=== PATIENT | male | born 1965 | race Caucasian/White ===

== ENCOUNTER → 2017-02-02 | Outpatient (CLI) | payer BC ==
[2017-02-02 09:55] LABS: ALT 69 U/L (21-72); AST 43 U/L (17-59); Alkaline Phosphatase 142 U/L (38-126); Anion Gap 10 mmol/L; Blood Urea Nitrogen 22 mg/dL (9-20); Calcium 9.3 mg/dL (8.4-10.2); Carbon Dioxide 26 mmol/L (22-30); Chloride 106 mmol/L (98-107); Cholesterol 184 mg/dL (<200); Glucose 81 mg/dL (74-99); HDL Cholesterol 36 mg/dL (40-60); Non-African American GFR(MDRD) >60 (>60 ml/min/1.73 sqM); Potassium 4.2 mmol/L (3.5-5.1); Sodium 142 mmol/L (137-145); Total Bilirubin 0.5 mg/dL (0.2-1.3); Total Protein 7.2 g/dL (6.3-8.2)
== END | disposition home or self-care (01) ==
LOC: LABWHC1 09:21
PROVIDERS: ATTEND Internal Medicine Endocrinology, Diabetes & Metabolism
DX: E11.65 Type 2 diabetes mellitus with hyperglycemia (principal)
CPT/HCPCS: 36415; 80053; 80061; 82043; 82570

== ENCOUNTER 2017-02-23 21:51 | Emergency (ER) | payer BC ==
[2017-02-23 22:04] VITALS: RESP 18
[2017-02-23] MEDS ORDERED: ALBUTEROL NEBULIZED 2.5 MG/3 ML INHALATION STA (22:22)
[2017-02-23] MEDS ORDERED: DEXAMETHASONE SOD PHOSPHATE 10 MG/ML 1 ML VIAL IM STA (22:22)
[2017-02-23] MEDS ORDERED: IPRATROPIUM 0.5 MG/2.5 ML NEBU INHALATION STA (22:22)
--- NOTE | 2017-02-23 22:25 | ED ---
General Adult HPI - General Chief complaint: Upper Respiratory Infection Stated complaint: SOB Time Seen by Provider: 02/23/17 22:10 Source: patient, family, RN notes reviewed Mode of arrival: ambulatory Limitations: no limitations - History of Present Illness Initial comments: 51-year-old male with past medical history of hypertension, diabetes, hypercholesterolemia presents with a two-week history of cough. Cough is productive, primarily white phlegm. Patient was seen at an urgent care approximately 2 weeks ago, given a prescription for antibiotics and albuterol inhaler. He does not have a history of asthma or COPD, he was exposed to secondhand smoke and had a brief period of smoking as a young man. Patient denies fever but states he's had chills and night sweats over the past week. He did complete his antibiotic course proximally one week ago. He has had persistent cough and shortness of breath. Also reports some posttussive emesis. Patient also reports runny nose, and laryngitis. Denies any chest pain. Denies abdominal pain. - Related Data Home Medications Medication Instructions Recorded Confirmed Empagliflozin [Jardiance] 25 mg PO DAILY 08/10/14 02/23/17 Hydrocodone/Acetaminophen 7.5 mg PO TID 08/10/14 02/23/17 [Hydrocodon-Acetaminoph 7.5-325] Ibuprofen [Motrin] 800 mg PO Q6HR PRN 08/10/14 02/23/17 Insulin Glargine [Lantus] 80 unit SQ BID 08/10/14 02/23/17 Levothyroxine Sodium [Synthroid] 137 mcg PO DAILY 08/10/14 02/23/17 Lovastatin 40 mg PO HS 08/10/14 02/23/17 metFORMIN HCL 1,000 mg PO DAILY 08/10/14 02/23/17 Metoprolol Tartrate 25 mg PO BID 08/13/14 02/23/17 Pregabalin [Lyrica] 100 mg PO TID 08/13/14 02/23/17 Insulin Lispro [humaLOG] 40 units SQ BID 03/28/15 02/23/17 Levofloxacin [Levaquin] 1 tab PO DAILY 04/11/15 02/23/17 hydrALAZINE HCL [Apresoline] 100 mg PO BID 05/26/15 02/23/17 Previous Rx's Medication Instructions Recorded B Complex-Vit C-Vit E-Zinc [Z-Bec] 1 each PO DAILY@1200 #30 tablet 08/23/14 Azithromycin 500 mg PO DAILY #10 tab 02/23/17 predniSONE 50 mg PO DAILY #5 tab 02/23/17 Allergies Allergy/AdvReac Type Severity Reaction Status Date / Time sulfamethoxazole AdvReac Severe Nausea, Verified 02/23/17 22:04 [From Bactrim] Dizziness, Headaches trimethoprim [From Bactrim] AdvReac Severe Nausea, Verified 02/23/17 22:04 Dizziness, Headaches Review of Systems ROS Statement: Those systems with pertinent positive or pertinent negative responses have been documented in the HPI. ROS Other: All systems not noted in ROS Statement are negative. Past Medical History Past Medical History: Diabetes Mellitus, GERD/Reflux, Hyperlipidemia, Hypertension, Thyroid Disorder Additional Past Medical History / Comment(s): RT FOOT OSTEOMYLITIS, WOUND CENTER PT, STATES HAD 40 TX IN HYPERBARIC CHAMBER, ZURI EXT NEUROPATHY, HIATAL HERNIA History of Any Multi-Drug Resistant Organisms: MRSA Date of last positivie culture/infection: 07/2014 MDRO Source:: RT FOOT Past Surgical History: Cholecystectomy, Hernia Repair, Orthopedic Surgery, Tonsillectomy Additional Past Surgical History / Comment(s): MULT. I&D RT FOOT, vasectomy, rhinoplasty, tendon surgery right wrist. Past Anesthesia/Blood Transfusion Reactions: No Reported Reaction Past Psychological History: No Psychological Hx Reported Smoking Status: Former smoker Past Alcohol Use History: Rare Past Drug Use History: None Reported - Past Family History Father Family Medical History: Coronary Artery Disease (CAD), Diabetes Mellitus, Renal Disease Mother Family Medical History: COPD, Diabetes Mellitus General Exam Limitations: no limitations General appearance: alert, in no apparent distress Head exam: Present: atraumatic, normocephalic Eye exam: Present: normal appearance, PERRL ENT exam: Present: normal exam, mucous membranes moist Neck exam: Present: normal inspection. Absent: tenderness, meningismus Respiratory exam: Present: respiratory distress, wheezes, other (Bronchospastic cough) Cardiovascular Exam: Present: regular rate, normal rhythm GI/Abdominal exam: Present: soft. Absent: distended, tenderness Extremities exam: Present: normal inspection, normal capillary refill. Absent: pedal edema Neurological exam: Present: alert, oriented X3 Psychiatric exam: Present: normal affect, normal mood Skin exam: Present: warm, dry. Absent: cyanosis, diaphoretic Course Vital Signs 02/23/17 02/23/17 02/23/17 22:02 22:31 22:40 Temperature 98.8 F Pulse Rate 83 84 88 Respiratory 18 Rate Blood Pressure 155/74 O2 Sat by Pulse 95 Oximetry - Reevaluation(s) Reevaluation #1: 02/23/17 23:32 On reevaluation, after albuterol and Atrovent patient is much more comfortable, no respiratory distress. Good air entry bilaterally, still scattered end expiratory wheeze Medical Decision Making - Medical Decision Making 51-year-old presenting with two-week history of cough. Patient was treated with antibiotic, likely Levaquin as an outpatient. This prescription ended approximately one week. He has persistent cough which is productive. No history of asthma or COPD. He is a nonsmoker. On examination patient is in mild respiratory distress, does have scattered wheezing throughout bilateral lung gomez. No rales. No rhonchi. Chest x-ray shows interstitial prominence consistent with bronchitis, no focal pneumonia. Patient's vital signs are stable. He is given Decadron, albuterol, and Atrovent in the emergency department. He will be treated with azithromycin and a short course of steroids for acute bronchitis. He will return the emergency Department with worsening symptoms. Patient is agreeable with this plan. Diagnosis acute bronchitis Disposition Clinical Impression: Bronchitis Disposition: HOME SELF-CARE Condition: Good Instructions: Acute Bronchitis (ED) Prescriptions: Azithromycin 500 mg PO DAILY #10 tab predniSONE 50 mg PO DAILY #5 tab Referrals: Rj Haynes DO [Primary Care Provider] - 1-2 days Time of Disposition: 23:35
--- NOTE | 2017-02-23 23:43 | XR ---
EXAM: XR Chest, 2 Views CLINICAL HISTORY: Reason: cough TECHNIQUE: Frontal and lateral views of the chest. COMPARISON: No relevant prior studies available. FINDINGS: Lungs: Diffuse bilateral interstitial prominence is nonspecific and can be seen in the setting of mild interstitial edema or chronic interstitial lung disease. No focal consolidation. Pleural space: Unremarkable. No pneumothorax. Heart: Stable cardiomediastinal silhouette. Mediastinum: See above. Bones/joints: No acute osseous abnormality. IMPRESSION: Diffuse bilateral interstitial prominence is nonspecific and can be seen in the setting of mild interstitial edema or chronic interstitial lung disease. No focal consolidation.
[2017-02-24 00:07] VITALS: BP 156/69; PULSE 87; TEMP 97.8
== END 2017-02-24 00:05 | disposition home or self-care (01) ==
LOC: EC 21:51
DX: J40 Bronchitis, not specified as acute or chronic (principal); E11.9 Type 2 diabetes mellitus without complications; E07.9 Disorder of thyroid, unspecified; I10 Essential (primary) hypertension; E78.5 Hyperlipidemia, unspecified; Z87.891 Personal history of nicotine dependence; Z88.2 Allergy status to sulfonamides; Z79.4 Long term (current) use of insulin; Z79.84 Long term (current) use of oral hypoglycemic drugs; Z79.899 Other long term (current) drug therapy
CPT/HCPCS: 94640; 71020; 99283; 96372; J1100

== ENCOUNTER → 2017-07-02 | Outpatient (CLI) | payer BC ==
--- NOTE | 2017-07-02 21:51 | CT ---
EXAMINATION TYPE: CT chest wo con DATE OF EXAM: 07/02/2017 COMPARISON: NONE HISTORY: SOB x2 months. Interstitial lung disease. CT DLP: 1370.2 mGycm. Automated Exposure Control for Dose Reduction was Utilized. TECHNIQUE: CT scan of the thorax is performed without IV contrast. High-resolution protocol with 1 m m sequences obtained in 10 mm intervals in supine and prone positioning FINDINGS: LUNGS: No suspicious reticulation, distortion, or fibrosis is identified bilaterally. No suspicious c onsolidation or groundglass opacity is seen. No bronchiectasis is identified. No pleural effusion or pneumothorax is seen. No suspicious parenchymal masses noted. Somewhat low lung volumes are present. MEDIASTINUM: Lack of IV contrast is noted to limit evaluation for mediastinal and especially hilar ad enopathy. There are no definitive greater than 1 cm hilar or mediastinal lymph nodes. No cardiomega ly or pericardial effusion is seen. Coronary artery calcification is present which is noted marker fo r coronary artery disease. OTHER: Small degree bilateral gynecomastia is seen. Visualized liver is hypodense relative to spleen consistent with fatty infiltration. Gallbladder is suspected surgically absent. IMPRESSION: No significant acute or chronic pulmonary process.
== END | disposition home or self-care (01) ==
LOC: RADCTMAIN 17:17
PROVIDERS: ATTEND Internal Medicine
DX: J84.9 Interstitial pulmonary disease, unspecified (principal); Z88.2 Allergy status to sulfonamides
CPT/HCPCS: 71250

== ENCOUNTER 2017-10-11 20:31 | Inpatient (IN) | payer BC ==
[2017-10-11] MEDS ORDERED: MORPHINE SULFATE 4MG/4ML SYRG IVP STA ×2 (20:55→22:30)
[2017-10-11] MEDS ORDERED: ACETAMINOPHEN TAB 500 MG TAB PO STA (20:55)
[2017-10-11] MEDS ORDERED: SODIUM CHLORIDE 0.9% 1,000 ML IV STA ×2 (20:55)
[2017-10-11] MEDS ORDERED: KETOROLAC 30 MG/ML 1 ML VIAL IVP STA (20:55)
[2017-10-11] MEDS ORDERED: ceFAZolin 1,000 MG in DEXTROSE/WATER 1 50ML.BAG IVPB STA (20:55)
[2017-10-11 21:20] LABS: Basophils % (A) 0 %; Eosinophils # (A) 0.4 k/uL (0-0.7); Eosinophils % (A) 2 %; HCT 39.7 % (39.0-53.0); HGB 13.2 gm/dL (13.0-17.5); Lymphocytes # (A) 0.6 k/uL (1.0-4.8); Lymphocytes % (A) 3 %; MCH 28.8 pg (25.0-35.0); MCHC 33.1 g/dL (31.0-37.0); MCV 86.9 fL (80.0-100.0); Mean Platelet Volume 7.6; Monocytes # (A) 0.3 k/uL (0-1.0); Monocytes % (A) 2 %; Neutrophils # (A) 18.9 k/uL (1.3-7.7); Neutrophils % (A) 93 %; Platelet Count 347 k/uL (150-450); RBC 4.57 m/uL (4.30-5.90); RDW 13.6 % (11.5-15.5); WBC 20.3 k/uL (3.8-10.6)
[2017-10-11 21:39] LABS: C Reactive Protein 45.1 mg/L (<10.0)
--- NOTE | 2017-10-11 21:44 | ED ---
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 He reports that at 2:00 this afternoon he was unable to bear any weight on it. He was able to walk earlier this morning. He reports that his pain is a 10/10 with ambulation. Patient has a history of fractures to the left foot and ankle. He also has a history of osteomyelitis and fractures within his right foot. He reports that his right foot is not giving him any difficulty at this time. Patient reports that he feels feverish and chilled. He reports significant pain with any range of motion of the ankle.Patient denies any recent , shortness of breath, chest pain, back pain, abdominal pain, nausea vomiting, numbness or tingling, dysuria or hematuria, constipation or diarrhea, headaches or visual changes, or any other current symptoms - Related Data Home Medications Medication Instructions Recorded Confirmed Empagliflozin [Jardiance] 25 mg PO DAILY 08/10/14 10/11/17 Ibuprofen [Motrin] 800 mg PO Q6HR PRN 08/10/14 10/11/17 Insulin Glargine [Lantus] 100 unit SQ BID 08/10/14 10/11/17 Lovastatin 40 mg PO HS 08/10/14 10/11/17 metFORMIN HCL 1,000 mg PO DAILY 08/10/14 10/11/17 Metoprolol Tartrate 25 mg PO BID 08/13/14 10/11/17 Pregabalin [Lyrica] 100 mg PO TID 08/13/14 10/11/17 Insulin Lispro [humaLOG] 60 units SQ BID 03/28/15 10/11/17 hydrALAZINE HCL [Apresoline] 100 mg PO BID 05/26/15 10/11/17 Gabapentin 600 mg PO DAILY 10/11/17 10/11/17 HYDROcodone/APAP 5-325MG [[place] 1 tab PO TID PRN 04/20/18 04/20/18 5-325] Levothyroxine Sodium [Synthroid] 150 mcg PO DAILY 10/11/17 10/11/17 Ramipril 10 mg PO DAILY 10/11/17 10/11/17 Allergies Allergy/AdvReac Type Severity Reaction Status Date / Time sulfamethoxazole AdvReac Severe Nausea, Verified 10/11/17 21:36 [From Bactrim] Dizziness, Headaches trimethoprim [From Bactrim] AdvReac Severe Nausea, Verified 10/11/17 21:36 Dizziness, Headaches Review of Systems ROS Statement: Those systems with pertinent positive or pertinent negative responses have been documented in the HPI. ROS Other: All systems not noted in ROS Statement are negative. Past Medical History Past Medical History: Diabetes Mellitus, GERD/Reflux, Hyperlipidemia, Hypertension, Thyroid Disorder Additional Past Medical History / Comment(s): RT FOOT OSTEOMYLITIS, WOUND CENTER PT, STATES HAD 40 TX IN HYPERBARIC CHAMBER, ZURI EXT NEUROPATHY, HIATAL HERNIA History of Any Multi-Drug Resistant Organisms: MRSA Date of last positivie culture/infection: 07/2014 MDRO Source:: RT FOOT Past Surgical History: Cholecystectomy, Hernia Repair, Orthopedic Surgery, Tonsillectomy Additional Past Surgical History / Comment(s): MULT. I&D RT FOOT, vasectomy, rhinoplasty, tendon surgery right wrist. Past Anesthesia/Blood Transfusion Reactions: No Reported Reaction Past Psychological History: No Psychological Hx Reported Smoking Status: Former smoker Past Alcohol Use History: Occasional Past Drug Use History: None Reported - Past Family History Father Family Medical History: Coronary Artery Disease (CAD), Diabetes Mellitus, Renal Disease Mother Family Medical History: COPD, Diabetes Mellitus General Exam - General Exam Comments Initial Comments: 52-year-old male. Alert and oriented. No distress. Limitations: physical limitation General appearance: alert, in no apparent distress Head exam: Present: atraumatic, normocephalic, normal inspection Eye exam: Present: normal appearance, PERRL, EOMI. Absent: scleral icterus, conjunctival injection, periorbital swelling ENT exam: Present: normal exam, mucous membranes moist Neck exam: Present: normal inspection. Absent: tenderness, meningismus, lymphadenopathy Respiratory exam: Present: normal lung sounds bilaterally. Absent: respiratory distress, wheezes, rales, rhonchi, stridor Cardiovascular Exam: Present: normal rhythm, tachycardia, normal heart sounds. Absent: regular rate, systolic murmur, diastolic murmur, rubs, gallop, clicks Left Lower Leg exam: Present: swelling. Absent: normal inspection Ankle exam: Present: tenderness, swelling, erythema. Absent: normal inspection , full ROM (Patient is unable to dorsiflex or plantar flex without significant pain. Pain with inversion and eversion of the ankle.) Foot/Toe exam: Present: tenderness, swelling, erythema. Absent: normal inspection Neurovascular tendon exam: Present: no vascular compromise Gait: unable to bear weight Back exam: Present: normal inspection Neurological exam: Present: alert, oriented X3, CN II-XII intact Psychiatric exam: Present: normal affect, normal mood Course Vital Signs 10/11/17 10/11/17 10/11/17 20:34 20:44 22:35 Temperature 98.9 F 101.5 F H 99.4 F Pulse Rate 107 H 103 H 97 Respiratory 19 22 16 Rate Blood Pressure 125/75 127/58 112/59 O2 Sat by Pulse 94 L 92 L 94 L Oximetry 10/11/17 23:42 Temperature 100.3 F H Pulse Rate 80 Respiratory 16 Rate Blood Pressure 125/84 O2 Sat by Pulse 96 Oximetry Medical Decision Making - Medical Decision Making 52-year-old male with history of left foot and ankle fractures as well as right foot ankle fracture loss or malaise presents today with worsening pain and swelling over the right foot and ankle. He reports that he has been following with Dr. Mcneil in regards to charcoal's arthropathy. Patient arrives to emergency department fever 101.5. He was given Tylenol and IV Toradol. Patient received 2 L of fluids. His white blood cell count is elevated at 20, 000. Negative uric acid level. He has an elevated CRP of 45. Blood cultures obtained. I started the patient initially appear to be somewhat cellulitic. However patient does have significant pain with any range of motion of the ankle. Concern for septic arthritis. Surgeon on IV Rocephin and IV vancomycin. Patient was at this time with consult to Dr. Mcneil his floral specialist as well as Dr. Mi his infectious disease specialist. - Lab Data Result diagrams: 10/11/17 21:10 10/11/17 21:10 Lab Results 10/11/17 10/11/17 10/11/17 Range/Units 21:10 21:10 21:10 WBC 20.3 H (3.8-10.6) k/uL RBC 4.57 (4.30-5.90) m/uL Hgb 13.2 (13.0-17.5) gm/dL Hct 39.7 (39.0-53.0) % MCV 86.9 (80.0-100.0) fL MCH 28.8 (25.0-35.0) pg MCHC 33.1 (31.0-37.0) g/dL RDW 13.6 (11.5-15.5) % Plt Count 347 (150-450) k/uL Neutrophils % 93 % Lymphocytes % 3 % Monocytes % 2 % Eosinophils % 2 % Basophils % 0 % Neutrophils # 18.9 H (1.3-7.7) k/uL Lymphocytes # 0.6 L (1.0-4.8) k/uL Monocytes # 0.3 (0-1.0) k/uL Eosinophils # 0.4 (0-0.7) k/uL Basophils # 0.0 (0-0.2) k/uL ESR Cancelled Sodium (137-145) mmol/L Potassium (3.5-5.1) mmol/L Chloride (98-107) mmol/L Carbon Dioxide (22-30) mmol/L Anion Gap mmol/L BUN (9-20) mg/dL Creatinine (0.66-1.25) mg/dL Est GFR (CKD-EPI)AfAm (>60 ml/min/1.73 sqM) Est GFR (CKD-EPI)NonAf (>60 ml/min/1.73 sqM) Glucose (74-99) mg/dL Plasma Lactic Acid Ron 1.5 (0.7-2.0) mmol/L Uric Acid 5.6 (3.5-8.5) mg/dL Calcium (8.4-10.2) mg/dL C-Reactive Protein 45.1 H (<10.0) mg/L 10/11/17 Range/Units 21:10 WBC (3.8-10.6) k/uL RBC (4.30-5.90) m/uL Hgb (13.0-17.5) gm/dL Hct (39.0-53.0) % MCV (80.0-100.0) fL MCH (25.0-35.0) pg MCHC (31.0-37.0) g/dL RDW (11.5-15.5) % Plt Count (150-450) k/uL Neutrophils % % Lymphocytes % % Monocytes % % Eosinophils % % Basophils % % Neutrophils # (1.3-7.7) k/uL Lymphocytes # (1.0-4.8) k/uL Monocytes # (0-1.0) k/uL Eosinophils # (0-0.7) k/uL Basophils # (0-0.2) k/uL ESR Sodium 139 (137-145) mmol/L Potassium 4.9 (3.5-5.1) mmol/L Chloride 102 (98-107) mmol/L Carbon Dioxide 21 L (22-30) mmol/L Anion Gap 16 mmol/L BUN 32 H (9-20) mg/dL Creatinine 1.20 (0.66-1.25) mg/dL Est GFR (CKD-EPI)AfAm 80 (>60 ml/min/1.73 sqM) Est GFR (CKD-EPI)NonAf 69 (>60 ml/min/1.73 sqM) Glucose 301 H (74-99) mg/dL Plasma Lactic Acid Ron (0.7-2.0) mmol/L Uric Acid (3.5-8.5) mg/dL Calcium 9.5 (8.4-10.2) mg/dL C-Reactive Protein (<10.0) mg/L - Radiology Data Radiology results: report reviewed Venous Doppler is negative for DVT. There is a large lymph nodes noted in left groin. Measures 1.8 cm. Chest x-rays reviewed and negative for any active cardiopulmonary disease. Foot x-ray shows mid foot deformity consistent with old navicular fracture and partial dislocation. No acute fracture seen. No sign of inflammatory arthritis. Ankle x-ray shows degenerative cyst formation on the talus. Old healed fibular fracture. No acute fracture seen. Soft tissue swelling. Slight deformity seen of the talonavicular joint that could be due to old navicular fracture. Disposition Clinical Impression: Sepsis, Septic arthritis of left ankle Disposition: ADMITTED IP TO THIS HOSP Condition: Stable Is patient prescribed a controlled substance at d/c from ED?: No If prescribed controlled substance>3 days was MAPS reviewed?: No When asked, does pt state using other controlled substances?: No Time of Disposition: 22:54
--- NOTE | 2017-10-11 22:07 | XR ---
EXAMINATION TYPE: XR ankle complete LT DATE OF EXAM: 10/11/2017 COMPARISON: NONE HISTORY: Ankle pain TECHNIQUE: 3 views FINDINGS: There is soft tissue swelling around the ankle joint. There is subchondral cystic change on the medial dome of the talus. There is deformity of distal fibula related to old healed fracture. I see no acute fracture. There is deformity of the navicular and significant deformity of the talonavic ular joint on the lateral view. IMPRESSION: Degenerative cyst formation in the talus. Old healed fibular fracture. No acute fracture seen. Soft tissue swelling. Significant deformity seen at the talonavicular joint that could be due t o old navicular fracture.
--- NOTE | 2017-10-11 22:08 | XR ---
EXAMINATION TYPE: XR foot complete LT DATE OF EXAM: 10/11/2017 COMPARISON: NONE HISTORY: Pain TECHNIQUE: 3 views FINDINGS: There is some deformity at the talonavicular joint with apparent partial anterior dislocati on of the navicular. This is probably a chronic injury and there is probably an old navicular fractur e. The metatarsals are intact. There are no erosions. There is sclerosis at the calcaneal cuboidal jm int. IMPRESSION: Midfoot deformity consistent with old navicular fracture and partial dislocation. No acut e fracture seen. No sign of inflammatory arthritis.
--- NOTE | 2017-10-11 22:10 | XR ---
EXAMINATION TYPE: XR chest 2V DATE OF EXAM: 10/11/2017 COMPARISON: 06/19/2017 HISTORY: Chest pain TECHNIQUE: Frontal and lateral views of the chest are obtained. FINDINGS: There is no heart failure nor confluent pneumonic infiltrate. Costophrenic angles are gunner r. Bony thorax is intact. IMPRESSION: No active cardiopulmonary disease. No change.
[2017-10-11] MEDS ORDERED: SODIUM CHLORIDE 0.9% 1,000 ML IV ONE (22:30)
[2017-10-11] MEDS ORDERED: cefTRIAXone IN SWFI 1,000 MG/10 ML SYRINGE IVP STA (22:34)
[2017-10-11] MEDS ORDERED: VANCOMYCIN IV PER PHARMACY 1 EACH MISC MISCELLANE PRN (22:35)
--- NOTE | 2017-10-11 22:46 | US ---
EXAMINATION TYPE: US venous doppler duplex LE LT DATE OF EXAM: 10/11/2017 10:26 PM COMPARISON: CLINICAL HISTORY: Pain. Left ankle swelling. No hx of blood clots or on blood thinners. No injury. SIDE PERFORMED: Left TECHNIQUE: The lower extremity deep venous system is examined utilizing real time linear array sonog abrahan with graded compression, doppler sonography and color-flow sonography. VESSELS IMAGED: External Iliac Vein (EIV) Common Femoral Vein Deep Femoral Vein Greater Saphenous Vein * Femoral Vein Popliteal Vein Small Saphenous Vein * Proximal Calf Veins (* superficial vessels) Left Leg: Appears negative for DVT. Enlarged lymph nodes seen in left groin, largest = 1.8 cm IMPRESSION: No evidence of deep venous thrombosis. Prominent left inguinal lymph node is noted that m easures 1.8 cm.
[2017-10-11] MEDS ORDERED: NALOXONE 0.4 MG/ML 1 ML VIAL IV PRN (22:54)
[2017-10-11] MEDS ORDERED: IBUPROFEN 400 MG TAB PO PRN (22:54)
[2017-10-11 22:58] LABS: Calcium 9.5 mg/dL (8.4-10.2); Potassium 4.9 mmol/L (3.5-5.1)
[2017-10-11] MEDS ORDERED: VANCOMYCIN 2,000 MG in SODIUM CHLORIDE 0.9% 500 ML IVPB ONE (23:00)
[2017-10-11 23:13] LABS: Uric Acid 5.6 mg/dL (3.5-8.5)
[2017-10-11] MEDS ORDERED: IBUPROFEN 800 MG TAB PO PRN (23:48)
[2017-10-11] MEDS ORDERED: HYDROcodone/APAP 5-325MG 1 EACH TAB PO PRN (23:48)
[2017-10-12] MEDS: SODIUM CHLORIDE 0.9% 1,000 ML IV SCH ×3 (00:44→14:04)
[2017-10-12] MEDS: ACETAMINOPHEN TAB 325 MG TAB PO PRN ×3 (04:58→15:45)
[2017-10-12] MEDS: MORPHINE ORAL SOLN 10 MG/5 ML CUP PO PRN ×2 (05:02→09:07)
[2017-10-12] MEDS: LEVOTHYROXINE 75 MCG TAB PO SCH (05:46)
[2017-10-12] MEDS: KETOROLAC 30 MG/ML 1 ML VIAL IVP PRN (05:46)
[2017-10-12 07:27] LABS: Glucose,Whole Blood 284 mg/dL (75-99)
[2017-10-12] MEDS ORDERED: metFORMIN 500 MG TAB PO SCH (07:30)
[2017-10-12] MEDS: PREGABALIN 100 MG CAP PO SCH ×3 (07:44→21:53)
[2017-10-12] MEDS: GABAPENTIN 300 MG CAP PO SCH (07:44)
[2017-10-12] MEDS: PANTOPRAZOLE 40 MG/10 ML VIAL IV SCH (07:44)
[2017-10-12] MEDS: METOPROLOL TARTRATE 25 MG TAB PO SCH ×2 (07:46→20:44)
[2017-10-12] MEDS ORDERED: VANCOMYCIN 2,000 MG in SODIUM CHLORIDE 0.9% 500 ML IVPB SCH (09:00)
[2017-10-12] MEDS ORDERED: LISINOPRIL 20 MG TAB PO SCH (09:00)
[2017-10-12] MEDS ORDERED: hydrALAZINE HCL 50 MG TAB PO SCH (09:00)
--- NOTE | 2017-10-12 09:37 | P.CNOR ---
History of Present Illness - [facility] Consult date: 10/12/17 History of present illness: The patient is very pleasant 52-year-old male with a medical history significant for poorly controlled type 2 diabetes, peripheral neuropathy, and prior lower extremity amputations. The patient is well-known to both myself and Dr. Mi with infectious disease. He has previously had a right partial foot amputation. The patient was seen in August of this year by my partner following an ankle sprain. He came to see me 2 weeks ago increasing pain and swelling in the right ankle. His exam and imaging at that time was consistent with acute Charcot. He was placed in a boot and follow-up was arranged this coming Saturday to monitor his progress. He is also been closely followed in the clinic by Dr. Mi. Yesterday he developed increasing pain, redness, and swelling in his ankle. He presented to the emergency department and was admitted to internal medicine. On my evaluation this morning he is complaining of swelling, pain, and redness in the left ankle. It is difficult for him to walk. He complains of a mild fever but denies chills or generalized malaise. He did have a small abrasion over the dorsum of his foot from the ankle brace worn in August but otherwise has not had any open wounds, insect bites, or breaches of the skin. Past Medical History Past Medical History: Diabetes Mellitus, GERD/Reflux, Hyperlipidemia, Hypertension, Thyroid Disorder Additional Past Medical History / Comment(s): RT FOOT OSTEOMYLITIS, WOUND CENTER PT, STATES HAD 40 TX IN HYPERBARIC CHAMBER, ZURI EXT NEUROPATHY, HIATAL HERNIA History of Any Multi-Drug Resistant Organisms: MRSA Year Discovered:: 07/2014 MDRO Source:: RT FOOT Past Surgical History: Cholecystectomy, Hernia Repair, Orthopedic Surgery, Tonsillectomy Additional Past Surgical History / Comment(s): MULT. I&D RT FOOT, vasectomy, rhinoplasty, tendon surgery right wrist. Past Anesthesia/Blood Transfusion Reactions: No Reported Reaction Past Psychological History: No Psychological Hx Reported Smoking Status: Former smoker Past Alcohol Use History: Occasional Past Drug Use History: None Reported - Past Family History Father Family Medical History: Coronary Artery Disease (CAD), Diabetes Mellitus, Renal Disease Mother Family Medical History: COPD, Diabetes Mellitus Medications and Allergies Home Medications Medication Instructions Recorded Confirmed Type Empagliflozin [Jardiance] 25 mg PO DAILY 08/10/14 10/11/17 History Ibuprofen [Motrin] 800 mg PO Q6HR PRN 08/10/14 10/11/17 History Insulin Glargine [Lantus] 100 unit SQ BID 08/10/14 10/11/17 History Lovastatin 40 mg PO HS 08/10/14 10/11/17 History metFORMIN HCL 1,000 mg PO DAILY 08/10/14 10/11/17 History Metoprolol Tartrate 25 mg PO BID 08/13/14 10/11/17 History Pregabalin [Lyrica] 100 mg PO TID 08/13/14 10/11/17 History Insulin Lispro [humaLOG] 60 units SQ BID 03/28/15 10/11/17 History hydrALAZINE HCL [Apresoline] 100 mg PO BID 05/26/15 10/11/17 History Gabapentin 600 mg PO DAILY 10/11/17 10/11/17 History HYDROcodone/APAP 5-325MG [[place] 1 tab PO TID PRN 10/11/17 10/11/17 History 5-325] Levothyroxine Sodium [Synthroid] 150 mcg PO DAILY 10/11/17 10/11/17 History Ramipril 10 mg PO DAILY 10/11/17 10/11/17 History Allergies Allergy/AdvReac Type Severity Reaction Status Date / Time sulfamethoxazole AdvReac Severe Nausea, Verified 10/11/17 21:36 [From Bactrim] Dizziness, Headaches trimethoprim [From Bactrim] AdvReac Severe Nausea, Verified 10/11/17 21:36 Dizziness, Headaches Physical Examination A focused examination of the left lower extremity was conducted. On inspection of the leg, ankle and foot there is diffuse swelling and mild erythema. There are no open wounds or areas of ulceration. There is a large ankle effusion. There is no palpable crepitance or fluctuance. There is pain with passive range of motion of the ankle. Results Imaging of the ankle and foot show collapse of the talar head and talonavicular joint - Labs Labs: Abnormal Lab Results - Last 24 Hours (Table) 10/11/17 10/11/17 10/11/17 Range/Units 21:10 21:10 21:10 WBC 20.3 H (3.8-10.6) k/uL Neutrophils # 18.9 H (1.3-7.7) k/uL Lymphocytes # 0.6 L (1.0-4.8) k/uL Carbon Dioxide 21 L (22-30) mmol/L BUN 32 H (9-20) mg/dL Glucose 301 H (74-99) mg/dL POC Glucose (mg/dL) (75-99) mg/dL C-Reactive Protein 45.1 H (<10.0) mg/L 10/12/17 Range/Units 07:25 WBC (3.8-10.6) k/uL Neutrophils # (1.3-7.7) k/uL Lymphocytes # (1.0-4.8) k/uL Carbon Dioxide (22-30) mmol/L BUN (9-20) mg/dL Glucose (74-99) mg/dL POC Glucose (mg/dL) 284 H (75-99) mg/dL C-Reactive Protein (<10.0) mg/L H & H 10/11/17 Range/Units 21:10 Hgb 13.2 (13.0-17.5) gm/dL Hct 39.7 (39.0-53.0) % Result Diagrams: 10/11/17 21:10 10/11/17 21:10 Assessment and Plan (1) Septic arthritis of left ankle Current Visit: Yes Status: Acute Code(s): M00.9 - PYOGENIC ARTHRITIS, UNSPECIFIED SNOMED Code(s): 97340535 (2) Cellulitis Current Visit: No Status: Acute Code(s): L03.90 - CELLULITIS, UNSPECIFIED SNOMED Code(s): 784081580 Plan: The patient is a very pleasant 52-year-old male with a medical history significant for diabetes, peripheral neuropathy, and prior lower extremity amputations presenting with an acute infection to his left ankle. He is been previously managed for what appeared to be Charcot arthritis, but now is more likely due to infection. Due to the large effusion I performed an aspiration of the ankle and was able to aspirate 5 mL's of cloudy, blood-tinged purulent fluid which was sent to the lab for cultures, Gram stain, cell count, and crystal analysis. I would like to obtain an MRI with and without contrast of the ankle to further determine the extent of the infection. The patient will likely need a formal incision and drainage and deep cultures in the operating room following the MRI. I will defer antibiotic recommendations to Dr. Mi. We will continue to closely follow the patient. Procedure: Verbal consent for a left ankle aspiration was obtained. The skin over the anterolateral aspect of the ankle was prepped with chlorhexidine and alcohol. Using an 18-gauge needle the ankle was aspirated through the anterolateral portal. A 5 mL's of cloudy, blood-tinged purulent fluid was aspirated. The needle was withdrawn and a Band-Aid was applied. The fluid was placed in a sterile urine container and sent to the lab.
[2017-10-12] MEDS ORDERED: PIPERACILLIN-TAZOBACTAM 3.375 GM in DEXTROSE/WATER 1 50ML.BAG IVPB SCH (10:00)
[2017-10-12] MEDS: NON-FORMULARY DRUG (Empagliflozin [Jardiance] 25 MG) PO SCH (10:28)
[2017-10-12 11:33] LABS: Glucose,Whole Blood 357 mg/dL (75-99)
[2017-10-12] MEDS ORDERED: INSULIN ASPART 100 UNIT/ML 1 ML 10 ML VIAL SQ SCH (12:30)
[2017-10-12] MEDS: PIPERACILLIN-TAZOBACTAM 3.375 GM in DEXTROSE/WATER 1 50ML.BAG IVPB SCH ×2 (13:52→22:17)
--- NOTE | 2017-10-12 14:16 | MR ---
EXAMINATION TYPE: MR ankle LT wo/w con DATE OF EXAM: 10/12/2017 1:48 PM COMPARISON: Plain films of the left foot dated 10/11/2017. HISTORY: Infection of Left Ankle, Gadavist 15 TECHNIQUE: Multiplanar, multiecho imaging of the left ankle is performed without IV contrast. FINDINGS: There is diffusely mottled signal throughout all the visualized bones. There is flattening of the dome of the talus. There appears to be synovial thickening throughout the ankle. There appears to be synovial thickening along the course of the flexor hallux longus. There is a flui d collection at the level of the musculotendinous junction. Unfortunately the lateral projection is not true lateral. It is difficult to appreciate the abnormal relationship of the talus with a tarsal lunate. No definite cortical erasure sign is seen. No definite osseous enhancement is seen. The peroneus brevis and longus tendons are intact. IMPRESSION: 1. ABNORMAL RELATIONSHIP OF THE TALUS AND NAVICULAR, LIKELY ROLL INJURY. 2. DIFFUSE MOTTLING OF THE BONES OF THE ANKLE AND FOREFOOT. IT WOULD BE IMPOSSIBLE TO EXCLUDE OSTEOMY ELITIS. 3. SYNOVIAL THICKENING VERSUS PHLEGMON THROUGHOUT THE JOINT SPACES OF THE FORE FOOT. 4. FLATTENING OF THE DOME OF THE TALUS. 5. ABNORMAL SIGNAL SURROUNDING THE TENDON AND MUSCULOTENDINOUS JUNCTION OF THE FLEXOR HALLUCIS LONGUS .
[2017-10-12] MEDS: ONDANSETRON 4 MG/2 ML VIAL IVP PRN (14:57)
[2017-10-12] MEDS ORDERED: VANCOMYCIN IV PER PHARMACY 1 EACH MISC MISCELLANE PRN (15:54)
[2017-10-12] MEDS: SODIUM CHLORIDE 0.9% 1,000 ML IV ONE ×2 (16:18→16:43)
[2017-10-12] MEDS ORDERED: SODIUM CHLORIDE 0.9% 1,000 ML IV ONE ×3 (16:35→19:00)
--- NOTE | 2017-10-12 17:24 | HP ---
HISTORY AND PHYSICAL DATE OF SERVICE: 10/12/2017 PRESENTING COMPLAINT: Pain in left ankle. HISTORY OF PRESENTING COMPLAINT: This is a 52-year-old patient of Dr. Haynes. Chronic stable medical conditions include GERD, hypertension, diabetes, hypothyroid, peripheral neuropathy, hiatal hernia, hyperlipidemia. History is obtained from his at the bedside. The patient about 6 weeks ago started complaining of pain in the left ankle. Initially he was diagnosed to have osteoarthritis. They went to [facility] and saw Dr. Saleh. Subsequently they saw Dr. Mcneil. He was due to have another appointment. Then he was diagnosed to have Charcot foot. 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 Pain in the left ankle became excruciating. He came home and then decided to come to the ER. Patient also did see Dr. Mi and was told to keep the pressure off the left ankle. Here the patient started developing fever, and the patient's blood culture from last night is growing Gram-positive cocci. Patient is currently on vancomycin and Zosyn. I came to see the patient earlier today. He did go to get an MRI of the ankle done. Since he has come back, patient is somewhat lethargic and delirious. His has given most of the history. REVIEW OF SYSTEMS: Currently the patient is delirious, not able to give much history. PAST MEDICAL HISTORY: 1. Right foot osteomyelitis in 2016 with amputation of right big toe, ray type it looks like. 2. GERD. 3. Hypertension. 4. Diabetes. 5. Hypothyroid. 6. Peripheral neuropathy. 7. Hiatal hernia. 8. Hyperlipidemia. PAST SURGICAL HISTORY: 1. Cholecystectomy. 2. Tonsillectomy. 3. Multiple I&D procedures of the right foot. 4. Vasectomy. 5. Rhinoplasty. 6. Tendon surgery, right wrist. 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 He quit smoking in 1984. He smoked less than a pack a day. . FAMILY HISTORY: Coronary artery disease and diabetes. HOME MEDICATIONS: 1. Lispro 16 units before meals t.i.d. 2. Gabapentin 600 mg daily. 3. Ramipril 10 mg p.o. daily. 4. [place] 5 one tablet t.i.d. p.r.n. 5. Jardiance 25 mg p.o. daily. 6. Lantus 100 units subcutaneously b.i.d. 7. Motrin 800 mg q.6 p.r.n. 8. Metformin 1000 mg p.o. daily. 9. Hydralazine 100 mg p.o. b.i.d. 10.Lyrica 100 mg p.o. t.i.d. 11.Metoprolol 25 p.o. b.i.d. 12.Lovastatin 40 mg at bedtime. 13.Synthroid 150 mcg p.o. daily. ALLERGIES: BACTRIM. PHYSICAL EXAMINATION: Temperature on presentation 101.5, pulse 103, respiration 22, blood pressure 127/58, pulse ox 92% on room air. GENERAL APPEARANCE: Well built. BMI of 42.9. Sitting up. Lethargic but arousable. EYES: Pupils equal. Conjunctivae normal. HEENT: External appearance of nose and ears normal. Oral cavity dry. NECK: JVD unable to assess. Mass not palpable. RESPIRATORY: Effort normal. LUNGS: Fair air entry. CARDIOVASCULAR: First and second sounds normal. No edema. ABDOMEN: Distended, soft. Liver and spleen not palpable. LYMPHATIC: No lymph node palpable in neck or axillae. PSYCHIATRY: Patient is lethargic, arousable. Just about able to answer questions. EXTREMITIES: Left ankle is tender, swollen. Right foot shows amputation of the right big toe. INVESTIGATION: White count 20.3, hemoglobin 4.9, BUN 32, creatinine 1.20, bicarb 21. Accu-Cheks 284, 357. CRP 45.1. Ankle x-ray did show some soft tissue swelling and significant deformity seen at the talonavicular joint. Venous Doppler showed no DVT. Ankle MRI shows diffuse mottling of the bones of the ankle and forefoot; synovial thickening versus phlegmon throughout the joint spaces of the forefoot, flattening of the dome of the talus. ASSESSMENT: 1. This is a patient who started off with pain for about 6 weeks in the left ankle, progressively getting worse; seems to have possibly some Charcot changes, though patient was having significant pain to the joint before coming in. That makes it less likely. Patient seems to have a septic arthritis, possibly with abscess causing the septic picture. 2. Prior history of right foot osteomyelitis with amputation in 2016. 3. Gastroesophageal reflux disease. 4. Essential hypertension. 5. Diabetes mellitus, type 2, uncontrolled, with hyperglycemia, chronically on insulin. 6. Hypothyroid. 7. Peripheral neuropathy from diabetes. 8. Hiatal hernia. 9. Hyperlipidemia. 10.Morbid obesity with body mass index of 42.9. 11.Acute delirium from sepsis. PLAN: The patient is getting IV vancomycin, IV Zosyn. Dr. Mi from Infectious Disease and Dr. Mcneil were consulted. I will talk to Dr. Mcneil and see if surgical intervention is to be carried sooner rather than later. Will move the to the ICU. We will put the patient on an insulin drip. Dr. Daniel will be consulted from Critical Care. Care was discussed with his at the bedside. [id number] / IJN: [id number] /
[2017-10-12 17:27] LABS: Glucose,Whole Blood 196 mg/dL (75-99)
[2017-10-12] MEDS ORDERED: ACETAMINOPHEN IV (For NPO) 1,000 MG in EMPTY BAG 1 BAG IVPB PRN (17:28)
[2017-10-12 17:50] LABS: ABG Base Excess -2.7 mmol/L; ABG HCO3 24 mmol/L (21-25); ABG Oxygen Saturation 86.2 % (94-97); ABG PCO2 47 mmHg (35-45); ABG PH 7.31 (7.35-7.45); ABG PO2 52 mmHg (83-108); ABG TCO2 25 mmol/L (19-24)
[2017-10-12] MEDS ORDERED: INSULIN REGULAR BOLUS (FROM DRIP BAG) IV PRN (18:02)
[2017-10-12 18:03] LABS: Calcium 8.4 mg/dL (8.4-10.2)
--- NOTE | 2017-10-12 18:05 | XR ---
EXAMINATION TYPE: XR chest 1V portable DATE OF EXAM: 10/12/2017 CLINICAL HISTORY: Central line placement. TECHNIQUE: Single AP portable supine view of the chest is obtained. COMPARISON: Chest x-ray from one day earlier and older studies. FINDINGS: There is new left internal jugular central venous catheter with tip in SVC. There is penelope r visualization patchy bibasilar atelectasis and/or infiltrate. No pleural effusion or pneumothorax i s seen bilaterally. Cardiac silhouette size is stable and within normal limits. Osseous structures ar e intact. IMPRESSION: 1. New left internal jugular central venous catheter with tip in SVC. No sizable pneumothorax is seen . 2. New left greater than right developing bibasilar atelectasis and/or infiltrate.
--- NOTE | 2017-10-12 18:10 | P.CNPUL ---
History of Present Illness Consult date: 10/12/17 History of present illness: This is a 52-year-old male patient, diabetic, known history of severe peripheral neuropathy, charcoal joints and previous amputation of the right foot , partial, presenting again today to the hospital because of pain and swelling following an ankle sprain on the left. The patient had been having progressive increase in swelling and pain in the left lower extremity mainly in the ankle area and there is increase in warmth. He came into the emergency department. He was seen by orthopedic surgery. The fluid joints was aspirated and the results are still pending for now. Meanwhile he became progressively more septic and he got transferred to the intensive care unit because of increased tachycardia, tachypnea, right gutters and hypotension and diminished level of consciousness. Apparently the patient was hypoxic with a pulse ox of 80% on the floor. Upon arrival to the ICU he was placed on high flow oxygen initially at 5 L/m nasal cannula which brought his saturation above 90%. He had a temperature 104.2. His heart rate was 130s sinus. He was quite lethargic and dry. He was started on aggressive fluid resuscitation 2 L of bolus of being given right now. Blood cultures positive and I discussed the case with infectious disease and the patient will be switched to daptomycin. The patient will also go to the operating room for immediate I&D. The patient has elevated blood sugar and he will be started on insulin drip for blood sugar control. Chest x-ray post-line insertion showed some smaller lung volumes. No pneumothorax. Some early atelectatic changes in lung bases bilaterally. An art line catheter was also inserted. Subsequently blood gases showed a pH of 7.3 with a pCO2 of 47 and pO2 of 52 and the patient was placed on 100% nonrebreather facemask. Review of Systems Constitutional: Reports chills, Reports fatigue, Reports fever, Reports lethargy , Reports malaise, Reports weakness Eyes: denies blurred vision, denies bulging eye, denies decreased vision Ears: deny: decreased hearing, ear discharge, earache Ears, nose, mouth and throat: Denies headache, Denies sore throat Cardiovascular: Reports rapid heart beat, Reports shortness of breath Respiratory: Reports dyspnea Gastrointestinal: Denies abdominal pain, Denies diarrhea, Denies nausea, Denies vomiting Genitourinary: Reports as per HPI Musculoskeletal: Reports hot joints, Reports limitation of motion, Reports muscle weakness, Reports myalgias, Reports redness of joints Musculoskeletal: bilateral: ankle pain, ankle stiffness, ankle swelling Integumentary: Reports as per HPI, Reports color changes, Reports wounds Neurological: Reports weakness Psychiatric: Denies anxiety, Denies depression Endocrine: Denies fatigue, Denies weight change Past Medical History Past Medical History: Diabetes Mellitus, GERD/Reflux, Hyperlipidemia, Hypertension, Thyroid Disorder Additional Past Medical History / Comment(s): Morbid obesity, diabetic, hypertension, hyperlipidemia, hypothyroidism, previous history of right foot osteomyelitis requiring partial amputation, history of wounds in the lower extremities most recent of which was created by a boots and the patient was treated and the wound had healed, charcoal joints, hiatal hernia History of Any Multi-Drug Resistant Organisms: MRSA Date of last positivie culture/infection: 07/2014 MDRO Source:: RT FOOT Past Surgical History: Cholecystectomy, Hernia Repair, Orthopedic Surgery, Tonsillectomy Additional Past Surgical History / Comment(s): MULT. I&D RT FOOT, vasectomy, rhinoplasty, tendon surgery right wrist. Past Anesthesia/Blood Transfusion Reactions: No Reported Reaction Past Psychological History: No Psychological Hx Reported Smoking Status: Former smoker Past Alcohol Use History: Occasional Past Drug Use History: None Reported - Past Family History Father Family Medical History: Coronary Artery Disease (CAD), Diabetes Mellitus, Renal Disease Mother Family Medical History: COPD, Diabetes Mellitus Medications and Allergies Home Medications Medication Instructions Recorded Confirmed Type Empagliflozin [Jardiance] 25 mg PO DAILY 08/10/14 10/11/17 History Ibuprofen [Motrin] 800 mg PO Q6HR PRN 08/10/14 10/11/17 History Insulin Glargine [Lantus] 100 unit SQ BID 08/10/14 10/11/17 History Lovastatin 40 mg PO HS 08/10/14 10/11/17 History metFORMIN HCL 1,000 mg PO DAILY 08/10/14 10/11/17 History Metoprolol Tartrate 25 mg PO BID 08/13/14 10/11/17 History Pregabalin [Lyrica] 100 mg PO TID 08/13/14 10/11/17 History Insulin Lispro [humaLOG] 60 units SQ AC-TID 03/28/15 10/12/17 History hydrALAZINE HCL [Apresoline] 100 mg PO BID 05/26/15 10/11/17 History Gabapentin 600 mg PO DAILY 10/11/17 10/11/17 History HYDROcodone/APAP 5-325MG [[place] 1 tab PO TID PRN 10/11/17 10/11/17 History 5-325] Levothyroxine Sodium [Synthroid] 150 mcg PO DAILY 10/11/17 10/11/17 History Ramipril 10 mg PO DAILY 10/11/17 10/11/17 History Allergies Allergy/AdvReac Type Severity Reaction Status Date / Time sulfamethoxazole AdvReac Severe Nausea, Verified 10/11/17 21:36 [From Bactrim] Dizziness, Headaches trimethoprim [From Bactrim] AdvReac Severe Nausea, Verified 10/11/17 21:36 Dizziness, Headaches Physical Exam Vitals: Vital Signs Temp Pulse Pulse Resp BP BP Pulse Ox 10/12/17 16:31 104.2 F H 112 H 24 94/51 97 10/12/17 15:58 100.8 F H 111 H 22 121/63 10/12/17 15:07 57 L 18 10/12/17 14:53 102.7 F H 10/12/17 13:15 99.6 F 106 H 18 144/65 92 L 10/12/17 09:00 98.4 F 57 L 18 104/58 91 L 10/12/17 00:40 98.6 F 93 17 96/54 94 L 10/11/17 23:42 100.3 F H 80 16 125/84 96 10/11/17 22:35 99.4 F 97 16 112/59 94 L 10/11/17 20:44 101.5 F H 103 H 22 127/58 92 L 10/11/17 20:34 98.9 F 107 H 19 125/75 94 L Intake and Output 10/12/17 10/12/17 10/12/17 06:59 14:59 22:59 Intake Total 1100 2450 Output Total 1450 1450 Balance 1100 1000 -1450 Intake: Intake, IV Titration 1100 1600 Amount Sodium Chloride 0.9% 1, 1100 000 ml @ 100 mls/hr IV . Q10H [facility] Rx#:[id number] Sodium Chloride 0.9% 1, 600 000 ml @ 120 mls/hr IV . Q8H20M [facility] Rx#:[id number] Vancomycin 2,000 mg In 500 500 Sodium Chloride 0.9% 500 ml @ 167 mls/hr IVPB Q12H [facility] Rx#:[id number] Oral 850 Output: Urine 950 950 Emesis 500 500 Other: Voiding Method Toilet Toilet Urinal Urinal # Voids 1 1 Weight 147.418 kg 147.418 kg 147.418 kg Patient is lethargic sleepy somnolent and is having chills and high-grade fever at time of evaluation. He is morbidly obese. He has diminished level of consciousness as his arousable.Head exam was generally normal. There was no scleral icterus or corneal arcus. Mucous membranes were moist. Neck is short and supple and mucus from veins are extremely dry. No with or neck masses. The left IJ triple-lumen catheter was inserted and the catheter is in place. Neck is supple and there is no JVDs no with or neck masses. Lungs sounds are diminished bilaterally and the breath sounds are clear and symmetrical. Heart sounds are tachycardic, positive S1-S2 and there is no significant murmurs appreciated.Abdominal exam revealed normal bowel sounds. The abdomen was soft, non-tender, and without masses, organomegaly, or appreciable enlargement of the abdominal aorta. Scars of previous surgery at the level of the umbilicus and there is also an infraumbilical scar. No direct tenderness hemoptysis or guarding. Extremities on inspection of the leg, ankle and foot there is diffuse swelling and mild erythema. There are no open wounds or areas of ulceration. There is a large ankle effusion. There is no palpable crepitance or fluctuance. There is pain with passive range of motion of the ankle. Neurologically the patient is moving all 4 extremities. He is lethargic and his arousable. No focal neurological deficit. Results - Laboratory Findings CBC and BMP: 10/11/17 21:10 10/11/17 21:10 ABG ABG pH 7.31 (7.35-7.45) L 10/12/17 17:48 ABG pCO2 47 mmHg (35-45) H 10/12/17 17:48 ABG pO2 52 mmHg (83-108) L 10/12/17 17:48 ABG O2 Saturation 86.2 % (94-97) L 10/12/17 17:48 Abnormal lab findings: Abnormal Labs 10/11/17 10/11/1718 21:10 21:10 21:10 WBC 20.3 H Neutrophils # 18.9 H Lymphocytes # 0.6 L ESR ABG pH ABG pCO2 ABG pO2 ABG Total CO2 ABG O2 Saturation Carbon Dioxide 21 L BUN 32 H Glucose 301 H POC Glucose (mg/dL) C-Reactive Protein 45.1 H 10/12/17 10/12/17 10/12/17 07:25 07:29 11:31 WBC Neutrophils # Lymphocytes # ESR 25 H ABG pH ABG pCO2 ABG pO2 ABG Total CO2 ABG O2 Saturation Carbon Dioxide BUN Glucose POC Glucose (mg/dL) 284 H 357 H C-Reactive Protein 10/12/17 10/12/17 17:26 17:48 WBC Neutrophils # Lymphocytes # ESR ABG pH 7.31 L ABG pCO2 47 H ABG pO2 52 L ABG Total CO2 25 H ABG O2 Saturation 86.2 L Carbon Dioxide BUN Glucose POC Glucose (mg/dL) 196 H C-Reactive Protein - Diagnostic Findings Chest x-ray: image reviewed Assessment and Plan Plan: Assessment 1 acute septic arthritis of the left ankle 2 acute sepsis secondary to above and the blood cultures positive for gram- positive cocci. Suspect staphylococcal septicemia secondary to a septic joint infection at the level of the ankle 3 acute fever and chills and leukocytosis and sinus tachycardia secondary to above 4 altered mental status secondary to above 5 acute hypoxemic respiratory failure secondary to above, rule out development of an earlier obvious 6 acute leukocytosis secondary to above 7 diabetes mellitus with elevated blood sugar secondary underlying sepsis 8 severe peripheral neuropathy 9 history of chronic wounds and ulceration in lower extremities bilaterally 10 charcoal joints 11 morbid obesity 12 hypertension, history of 13 hyperlipidemia 14 hypothyroidism 15 previous history of septic event and previous history of amputation including a partial dictation of the right foot Plan Aggressive fluid resuscitation and the will be receiving an additional 2 L of IV fluids here in the ICU. Pressors will be added if needed. Lasix was inserted including trouble with catheter and then Artline. IV daptomycin regarding this current septicemia. Immediate surgical evaluation and the patient will be taken to the operating room for incision and drainage of the left ankle. He will likely need intubation and he will likely stay intubated post the procedure. He will need intensive care management. He will need an insulin drip for blood sugar control for tighter blood sugar management. We'll make adjustments on his oral medication based on his status.. Meanwhile I would suggest holding the antihypertensive medication including the metoprolol and hydralazine and Zestril put the lower for now should the patient develop any hypotension postop. Heparin subcu for DVT prophylaxis. We'll continue to follow. Condition is critical. We'll continue to follow.
[2017-10-12 18:20] LABS: HCT 35.8 % (39.0-53.0); HGB 11.3 gm/dL (13.0-17.5); MCH 28.2 pg (25.0-35.0); MCHC 31.7 g/dL (31.0-37.0); MCV 88.9 fL (80.0-100.0); Mean Platelet Volume 8.3; Platelet Count 311 k/uL (150-450); RBC 4.03 m/uL (4.30-5.90); RDW 13.7 % (11.5-15.5)
[2017-10-12 18:40] LABS: Hemoglobin A1C 9.1 % (4.0-6.0)
[2017-10-12] MEDS ORDERED: LIDOCAINE 2%-EPI 1:100,000 20 ML VIAL ONE (19:10)
[2017-10-12] MEDS ORDERED: fentaNYL (PF) 50 MCG/ML 2 ML AMP ONE (19:10)
[2017-10-12] MEDS ORDERED: IV FLUID CONTINUATION 500 ML IV ONE ×2 (19:10)
[2017-10-12] MEDS ORDERED: BUPIVACAINE (PF) 0.5% 30 ML VIAL ONE (19:10)
[2017-10-12] MEDS ORDERED: MIDAZOLAM 2 MG/2 ML VIAL ONE (19:10)
--- NOTE | 2017-10-12 19:29 | OP ---
OPERATIVE REPORT DATE OF SERVICE: 10/12/2017. PREOPERATIVE DIAGNOSIS: Sepsis. POSTOPERATIVE DIAGNOSES: Sepsis. PROCEDURES: 1. Left internal jugular catheter. 2. Left radial arterial line catheter. TRIPLE LUMEN CATHETER PLACEMENT: Indication Hemodynamic monitoring/Intravenous access. A time-out was completed verifying correct patient, procedure, site, positioning, and implant(s) or special equipment if applicable. The patient was placed in a dependent position appropriate for triple lumen catheter placement based on the vein to be cannulated. The patient's left neck was prepped and draped in sterile fashion. 1% Lidocaine was used to anesthetize the surrounding skin area. A triple lumen 9F Cordis catheter was introduced into the subclavian or internal jugular or common femoral vein using Seldinger technique. The catheter was threaded smoothly over the guide wire and appropriate blood return was obtained. Each lumen of the catheter was evacuated of air and flushed with sterile saline. The catheter was then sutured in place to the skin and a sterile dressing applied. Perfusion to the extremity distal to the point of catheter insertion was checked and found to be adequate. No bedside complications or bleeding. No pneumothorax. ARTERIAL LINE PLACEMENT: Indications: Hemodynamic monitoring. A time-out was completed verifying correct patient, procedure, site, positioning, and implant(s) or special equipment if applicable. Cr's test was performed to ensure adequate perfusion. The patient's right wrist was prepped and draped in sterile fashion. 1% Lidocaine was used to anesthetize the area. An 18G Arrow arterial line was introduced into the radial/femoral artery. The catheter was threaded over the guide wire and the needle was removed with appropriate pulsatile blood return. Blood loss was minimal. The catheter was then sutured in place to the skin and a sterile dressing applied. Perfusion to the extremity distal to the point of catheter insertion was checked and found to be adequate. No bedside complications or bleeding. The patient tolerated the procedure well and there were no complications. MMODL / IJN: [id number] /
--- NOTE | 2017-10-12 19:49 | P.ONQ ---
Anesthesiology Proc Note - PNB - Peripheral Nerve Block Performed Left Popliteal Single Time Out Performed: Yes (1849) Procedure Start Time: 18:50 Procedure Stop Time: 19:05 Indication: Analgesia, Dx/Pain Location (Left Ankle Pain), Requested by physician Sedation Type: Sedate with meaningful contact maintained Preparation: Sterile Prep Position: Supine Catheter: None Needle Types: On-Q Needle Size: 100mm (4") Needle Gauge: 21 (15ml 0.5% Bupivacaine + 15ml 2% Lidocaine with 1:200,000 epi) Technique: Ultrasound Injectate: Other (see comment) (15ml 0.5% Bupivacaine + 2% Lidocaine with 1:200, 000 epi.) Blood Aspirated: No Pain Paresthesia on Injection Noted: No Resistance on Injection: Normal Events: Uneventful and Well Tolerated
--- NOTE | 2017-10-12 19:51 | P.ONQ ---
Anesthesiology Proc Note - PNB - Peripheral Nerve Block Performed Left Saphenous/Obturator Single Time Out Performed: Yes Procedure Start Time: 18:50 Procedure Stop Time: 19:05 Indication: Analgesia, Dx/Pain Location (Left Ankle), Requested by physician Needle Size: 50mm (2") Needle Gauge: 21 Technique: Ultrasound Injectate: Other (see comment) (5ml 0.5% Bupivacaine + 5ml 2% Lidocaine w/ 1:200 ,000 epi) Blood Aspirated: No Pain Paresthesia on Injection Noted: No Resistance on Injection: Normal Events: Uneventful and Well Tolerated
[2017-10-12] MEDS ORDERED: LACTATED RINGERS 1,000 ML IV ONE (19:56)
--- NOTE | 2017-10-12 20:05 | P.OP ---
Date of Procedure: 10/12/17 Preoperative Diagnosis: 1. Septic arthritis, left ankle 2. Likely osteomyelitis left talonavicular joint 3. Poorly controlled type 2 diabetes 4. History of prior lower extremity amputations 5. Morbid obesity with BMI of 42.9 Postoperative Diagnosis: Same Procedure(s) Performed: 1. Irrigation and debridement of left ankle joint 2. Application of wound VAC left ankle Anesthesia: regional Surgeon: Dre Mcneil Estimated Blood Loss (ml): 50 IV fluids (ml): 1,500 Pathology: other (Bone from talar head) Condition: stable Disposition: ICU Indications for Procedure: The patient is a 52-year-old male with a medical history significant for poorly controlled diabetes, prior lower extremity amputations, and morbid obesity who is admitted to internal medicine with a left ankle infection. The patient sustained an ankle sprain in August 2017. He was initially seen by my partner who diagnosed him with an ankle sprain. He followed up with me several weeks later with continued pain and swelling in the ankle. His ankle exam was consistent with Charcot arthritis and his x-ray showed collapse the talonavicular joint. We made a clinical diagnosis of Charcot arthritis and he was placed in a boot. Follow-up was arranged for 1-2 weeks after my evaluation. The patient was also under the care of Dr. Mi, infectious disease. He was seen by Dr. Mi last week. The patient developed increasing pain, redness, and swelling yesterday and presented to the ER. He was admitted to internal medicine with a left ankle infection. I saw the patient this morning. He was stable. He was found to have an ankle fusions when aspiration was obtained. The aspiration was grossly purulent. An MRI was then ordered. The MRI showed destruction of the talonavicular joint and a large ankle effusion. The patient subsequently developed septic shock and was transferred to the ICU. I spoke with Dr. Mi who requested an emergent irrigation and debridement. I agreed to perform the irrigation and debridement tonight. We discussed the potential risks and complications including but not limited to risk of anesthesia, risk of continued infection, risk of spread of the infection, risk of damage to local blood vessels or nerves, risk of damage to musculotendinous structures, risk of DVT, risk of PE, risk of other medical complications, risk of amputation, and risk of . The patient and his provided their verbal and written consent to go forward with surgery. Operative Findings: Gross purulence in the ankle joint and destruction of the talonavicular joint Description of Procedure: I met with the patient and his in preoperative holding. We discussed the emergent need for irrigation and debridement to decompress the area of pus in his ankle. The patient was given a popliteal nerve block by anesthesia. He was brought back to the operating room. He was left in his ICU bed. A bump was placed under the left buttock. A tourniquet was applied to the proximal aspect of the left thigh but was not inflated. A timeout was then performed identifying the correct patient, operative extremity and procedure. I began by outlining an anterolateral exposure to the ankle. I elected to use an anterolateral exposure to keep the incision away from the tibialis anterior tendon, to allow for an extensile exposure into the leg and foot, and due to the MR imaging showing a large collection of fluid anterolaterally. Skin incision was made a 15 blade scalpel and dissection was carried down carefully through the sub-cutaneous tissue. Ankle joint capsule was identified and appeared tense. The capsule was opened and there was a large Ross of gross pus. Deep cultures were taken. The capsulotomy was extended proximally and distally. The talonavicular joint was identified and found to be significantly distorted. Deep cultures were taken from the talar head and sent for both pathology and culture. The wound was copiously irrigated with 3 L of sterile saline using cystoscopy tubing. A wound VAC sponge was contoured to the wound. A wound VAC was then applied and hooked up to the canister set to 125 of continuous suction. There were no leaks. The drapes were taken down. A sterile dressing consisting of web roll and an Geoffrey wrap was applied. The patient was then brought back to the ICU in stable condition. Plan: Deep cultures have been taken and we will defer to infectious disease for antibiotic recommendations. If the patient does not improve and needs a second formal irrigation and debridement in the operating room we will be available. We will continue to closely follow the patient.
[2017-10-12 20:12] LABS: Glucose,Whole Blood 274 mg/dL (75-99)
[2017-10-12] MEDS: INSULIN REGULAR 100 UNIT in SODIUM CHLORIDE 0.9% 100 ML IV SCH (20:40)
[2017-10-12] MEDS: HEPARIN SODIUM,PORCINE 5,000 UNIT/ML 1 ML VIAL SQ SCH (20:44)
[2017-10-12] MEDS ORDERED: ATORVASTATIN 10 MG TAB PO SCH (21:00)
[2017-10-12] MEDS ORDERED: INSULIN DETEMIR 100 UNIT/ML 10 ML VIAL SQ SCH (21:00)
[2017-10-12] MEDS: ATORVASTATIN 40 MG TAB PO SCH (21:02)
[2017-10-12 21:05] LABS: Glucose,Whole Blood 178 mg/dL (75-99)
[2017-10-12] MEDS: DAPTOmycin 500 MG in SODIUM CHLORIDE 0.9% 50 ML IV SCH (21:17)
[2017-10-12 21:54] LABS: Glucose,Whole Blood 162 mg/dL (75-99)
[2017-10-12 22:02] LABS: Glucose,Whole Blood 156 mg/dL (75-99)
--- NOTE | 2017-10-12 22:40 | P.CONS ---
History of Present Illness - Reason for Consult Consult date: 10/12/17 - Chief Complaint Pain left ankle - History of Present Illness 52-year-old male has a long-standing history of diabetes mellitus type 2 poorly controlled and history of a prior diabetic foot ulceration to the right foot which resulted in a great toe amputation. The patient is been having some difficulties with his left ankle and following with the orthopedic surgeon. Because of some discomfort at the joint he was measured and given a new bracing device for the foot and ankle. However grommet on the dorsum of the foot resulted in a bit of an ulcer and he was concerned and sought care in the office. The patient had difficulty making the appointment because of the weather and has significant distance from work to the office and reschedule. When he came to the office earlier this week the ulceration had healed and he was feeling better but was still having some swelling to the ankle area. He had no fever or chills at the time of presentation to the office, but did have the swelling to the ankle area for which she had a specialty boot that have been designed that he was not wearing that day. He however presents to the emergency center because of the sudden onset of inability to bear weight to the ankle because of the amount of pain that he started to have. Shortly thereafter he became febrile and has had a rapid decline in his status with evidence of sepsis and presentation to the intensive care unit. The case is discussed with the industrial roof plumber as well as the orthopedic foot and ankle specialist. Given his rapid decline in status he'll go to the operating room this afternoon. The patient is acutely ill with fever chills generalized weakness and malaise and some alteration of his mental status. 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 I&D RT FOOT, vasectomy, rhinoplasty, tendon surgery right wrist. Past Anesthesia/Blood Transfusion Reactions: No Reported Reaction Past Psychological History: No Psychological Hx Reported Additional Psychological History / Comment(s): and lives in the family home with his and adult children. 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 No experience. No international travel. Stopped smoking several years ago. Denies alcohol abuse. No animal exposures Smoking Status: Former smoker Past Alcohol Use History: Occasional Past Drug Use History: None Reported - Past Family History Father Family Medical History: Coronary Artery Disease (CAD), Diabetes Mellitus, Renal Disease Mother Family Medical History: COPD, Diabetes Mellitus Medications and Allergies Home Medications and Allergies Comment(s): Current Medications Acetaminophen (Tylenol Tab) 650 mg PO Q6HR PRN PRN Reason: Mild Pain or Fever > 100.5 Last Admin: 10/12/17 15:45 Dose: 650 mg Atorvastatin Calcium (Lipitor) 40 mg PO HS [facility] Last Admin: 10/12/17 21:02 Dose: Not Given Gabapentin (Neurontin) 600 mg PO DAILY [facility] Last Admin: 10/12/17 07:44 Dose: 600 mg Heparin Sodium (Porcine) (Heparin) 5,000 unit SQ Q8HR [facility] Last Admin: 10/12/17 20:44 Dose: 5,000 unit Sodium Chloride (Saline 0.9%) 1,000 mls @ 120 mls/hr IV .Q8H20M [facility] Last Admin: 10/12/17 14:04 Dose: 120 mls/hr Piperacillin/Tazobactam/ (Dextrose 3.375 gm/ IV Solution) 50 mls @ 12.5 mls/hr IVPB Q8H [facility] Last Admin: 10/12/17 22:17 Dose: 12.5 mls/hr Acetaminophen 1,000 mg/ IV (Solution) 100 mls @ 400 mls/hr IVPB Q6HR PRN PRN Reason: Fever Stop: 10/13/17 12:14 Daptomycin 500 mg/ Sodium (Chloride) 50 mls @ 100 mls/hr IV Q24HR@1800 [facility] Last Admin: 10/12/17 21:17 Dose: 100 mls/hr Insulin Human Regular 100 unit (/ Sodium Chloride) 101 mls @ 0 mls/hr IV .Q0M [facility]; Per Protocol PRN Reason: Protocol Last Titration: 10/12/17 22:01 Dose: 1.98 unit/hr, 2 mls/hr Ketorolac Tromethamine (Toradol) 30 mg IVP Q6HR PRN PRN Reason: Moderate Pain Stop: 10/16/17 22:55 Last Admin: 10/12/17 05:46 Dose: 30 mg Levothyroxine Sodium (Synthroid) 150 mcg PO 0630 [facility] Last Admin: 10/12/17 05:46 Dose: 150 mcg Metformin HCl (Glucophage) 1,000 mg PO AC-BRKFST [facility] Last Admin: 10/12/17 07:44 Dose: 1,000 mg Metoprolol Tartrate (Lopressor) 25 mg PO BID [facility] Last Admin: 10/12/17 20:44 Dose: Not Given Morphine Sulfate (Morphine Oral Makenna 2mg/Ml) 12 mg PO Q4HR PRN PRN Reason: Severe Pain Last Admin: 10/12/17 09:07 Dose: 12 mg Naloxone HCl (Narcan) 0.2 mg IV Q2M PRN PRN Reason: Opioid Reversal Non-Formulary Medication (Empagliflozin [Jardiance]) 25 mg PO DAILY [facility] Last Admin: 10/12/17 10:28 Dose: 25 mg Ondansetron HCl (Zofran) 4 mg IVP Q8HR PRN PRN Reason: Nausea And Vomiting Last Admin: 10/12/17 14:57 Dose: 4 mg Pantoprazole Sodium (Protonix) 40 mg IV DAILY [facility] Last Admin: 10/12/17 07:44 Dose: 40 mg Pregabalin (Lyrica) 100 mg PO TID [facility] Last Admin: 10/12/17 21:53 Dose: Not Given Home Medications Medication Instructions Recorded Confirmed Type Empagliflozin [Jardiance] 25 mg PO DAILY 08/10/14 10/11/17 History Ibuprofen [Motrin] 800 mg PO Q6HR PRN 08/10/14 10/11/17 History Insulin Glargine [Lantus] 100 unit SQ BID 08/10/14 10/11/17 History Lovastatin 40 mg PO HS 08/10/14 10/11/17 History metFORMIN HCL 1,000 mg PO DAILY 08/10/14 10/11/17 History Metoprolol Tartrate 25 mg PO BID 08/13/14 10/11/17 History Pregabalin [Lyrica] 100 mg PO TID 08/13/14 10/11/17 History Insulin Lispro [humaLOG] 60 units SQ AC-TID 03/28/15 10/12/17 History hydrALAZINE HCL [Apresoline] 100 mg PO BID 05/26/15 10/11/17 History Gabapentin 600 mg PO DAILY 10/11/17 10/11/17 History HYDROcodone/APAP 5-325MG [Warren 1 tab PO TID PRN 10/11/17 10/11/17 History 5-325] Levothyroxine Sodium [Synthroid] 150 mcg PO DAILY 10/11/17 10/11/17 History Ramipril 10 mg PO DAILY 10/11/17 10/11/17 History Allergies Allergy/AdvReac Type Severity Reaction Status Date / Time sulfamethoxazole AdvReac Severe Nausea, Verified 10/11/17 21:36 [From Bactrim] Dizziness, Headaches trimethoprim [From Bactrim] AdvReac Severe Nausea, Verified 10/11/17 21:36 Dizziness, Headaches Physical Exam Vitals: Vital Signs Temp Pulse Pulse Resp BP BP Pulse Ox 10/12/17 22:00 101.2 F H 99 15 89/53 96 10/12/17 21:00 106 H 18 83/46 98 10/12/17 20:50 102 H 17 84/48 97 10/12/17 20:40 103 H 18 84/48 98 10/12/17 20:30 103 H 16 88/48 94 L 10/12/17 20:20 103 H 18 88/48 98 10/12/17 20:10 108 H 15 88/48 96 10/12/17 20:07 102.7 F H 108 H 14 102/57 10/12/17 18:45 110 H 18 112/56 93 L 10/12/17 18:20 103.2 F H 117 H 19 102/57 99 10/12/17 18:10 113 H 17 95/54 96 10/12/17 18:00 103.8 F H 122 H 35 H 119/49 100 10/12/17 17:50 126 H 42 H 102/59 88 L 10/12/17 17:40 129 H 35 H 114/67 96 10/12/17 17:30 103.9 F H 126 H 35 H 115/60 91 L 10/12/17 16:31 104.2 F H 112 H 24 94/51 97 10/12/17 15:58 100.8 F H 111 H 22 121/63 10/12/17 15:07 57 L 18 10/12/17 14:53 102.7 F H 10/12/17 13:15 99.6 F 106 H 18 144/65 92 L 10/12/17 09:00 98.4 F 57 L 18 104/58 91 L 10/12/17 00:40 98.6 F 93 17 96/54 94 L 10/11/17 23:42 100.3 F H 80 16 125/84 96 10/11/17 22:35 99.4 F 97 16 112/59 94 L Intake and Output 10/12/17 10/12/17 10/12/17 06:59 14:59 22:59 Intake Total 1100 2450 4846.391 Output Total 1450 2555 Balance 1100 1000 2291.391 Intake: IV 4840 0.9 bolus 3000 DAPTOmycin 500 mg In 100 Sodium Chloride 0.9% 50 ml @ 100 mls/hr IV Q24HR@ 1800 [facility] Rx#:[id number] Sodium Chloride 0.9% 1, 240 000 ml @ 120 mls/hr IV . Q8H20M [facility] Rx#:[id number] Intake, IV Titration 1100 1600 6.391 Amount Insulin Regular 100 unit 6.391 In Sodium Chloride 0.9% 100 ml @ Per Protocol IV .Q0M [facility] Rx#:[id number] Sodium Chloride 0.9% 1, 1100 000 ml @ 100 mls/hr IV . Q10H [facility] Rx#:[id number] Sodium Chloride 0.9% 1, 600 000 ml @ 120 mls/hr IV . Q8H20M [facility] Rx#:[id number] Vancomycin 2,000 mg In 500 500 Sodium Chloride 0.9% 500 ml @ 167 mls/hr IVPB Q12H [facility] Rx#:[id number] Oral 850 Output: Urine 950 2005 Emesis 500 500 Estimated Blood Loss 50 Other: Voiding Method Toilet Toilet Urinal Urinal # Voids 1 1 Weight 147.418 kg 147.418 kg 147.418 kg ABP, PAP, CO, CI - Last 8 Hours Arterial Blood Pressure 89/54 Arterial Blood Pressure 100/50 Arterial Blood Pressure 93/55 Arterial Blood Pressure 84/51 Arterial Blood Pressure 88/53 Arterial Blood Pressure 81/50 Arterial Blood Pressure 124/60 Arterial Blood Pressure 125/56 Arterial Blood Pressure 139/73 Arterial Blood Pressure 166/60 52-year-old male presents to Hospital feeling acutely ill found to have evidence of fever and then rapidly developed sepsis HEENT: Anicteric conjunctiva are pink and moist nasal mucosa grossly intact without significant lesions, there is no thrush. Neck: The neck is supple without significant lymphadenopathy or thyromegaly. Lungs: Good bilateral air entry without significant crackles or wheezing. There is no significant bronchial sounds. There is no egophony or dullness. Heart: Tachycardic but regular with an audible S1 and S2 soft S4 There is no significant murmur click or rub, PMI was nondisplaced. Abdomen: Obese Positive bowel sounds soft and nontender without palpable masses or organomegaly. There was no guarding or rebound. Extremities: The upper extremities have excellent pulses they are symmetric, no significant petechiae or telangiectasia. No splinter hemorrhages were noted. Right lower extremity has evidence of the prior great toe amputation which is well healed. Left lower extremity shows evidence of the swelling to the left ankle area which is now increased even further in the last few days. Patient does appear to have discomfort upon range of motion of the ankle. It is related that the ankle was aspirated and grossly purulent material was obtained. Neuro: Arousable oriented to person at this point in time is having some waxing and waning of his mental status but is moving all extremities Results CBC & Chem 7: 10/12/17 18:06 10/12/17 17:00 Labs: Abnormal Lab Results - Last 24 Hours (Table) 10/11/17 10/12/17 10/12/17 Range/Units 21:10 07:25 07:29 WBC (3.8-10.6) k/uL RBC (4.30-5.90) m/uL Hgb (13.0-17.5) gm/dL Hct (39.0-53.0) % ESR 25 H (0-15) mm/hr ABG pH (7.35-7.45) ABG pCO2 (35-45) mmHg ABG pO2 (83-108) mmHg ABG Total CO2 (19-24) mmol/L ABG O2 Saturation (94-97) % Potassium (3.5-5.1) mmol/L Chloride (98-107) mmol/L Carbon Dioxide 21 L (22-30) mmol/L BUN 32 H (9-20) mg/dL Creatinine (0.66-1.25) mg/dL Glucose 301 H (74-99) mg/dL POC Glucose (mg/dL) 284 H (75-99) mg/dL 10/12/17 10/12/17 10/12/17 Range/Units 11:31 17:00 17:26 WBC (3.8-10.6) k/uL RBC (4.30-5.90) m/uL Hgb (13.0-17.5) gm/dL Hct (39.0-53.0) % ESR (0-15) mm/hr ABG pH (7.35-7.45) ABG pCO2 (35-45) mmHg ABG pO2 (83-108) mmHg ABG Total CO2 (19-24) mmol/L ABG O2 Saturation (94-97) % Potassium 6.0 H (3.5-5.1) mmol/L Chloride 108 H (98-107) mmol/L Carbon Dioxide 17 L (22-30) mmol/L BUN 43 H (9-20) mg/dL Creatinine 1.80 H (0.66-1.25) mg/dL Glucose 212 H (74-99) mg/dL POC Glucose (mg/dL) 357 H 196 H (75-99) mg/dL 10/12/17 10/12/17 10/12/17 Range/Units 17:48 18:06 20:10 WBC 23.0 H (3.8-10.6) k/uL RBC 4.03 L (4.30-5.90) m/uL Hgb 11.3 L (13.0-17.5) gm/dL Hct 35.8 L (39.0-53.0) % ESR (0-15) mm/hr ABG pH 7.31 L (7.35-7.45) ABG pCO2 47 H (35-45) mmHg ABG pO2 52 L (83-108) mmHg ABG Total CO2 25 H (19-24) mmol/L ABG O2 Saturation 86.2 L (94-97) % Potassium (3.5-5.1) mmol/L Chloride (98-107) mmol/L Carbon Dioxide (22-30) mmol/L BUN (9-20) mg/dL Creatinine (0.66-1.25) mg/dL Glucose (74-99) mg/dL POC Glucose (mg/dL) 274 H (75-99) mg/dL 10/12/17 10/12/17 10/12/17 Range/Units 21:04 21:33 22:00 WBC (3.8-10.6) k/uL RBC (4.30-5.90) m/uL Hgb (13.0-17.5) gm/dL Hct (39.0-53.0) % ESR (0-15) mm/hr ABG pH (7.35-7.45) ABG pCO2 (35-45) mmHg ABG pO2 (83-108) mmHg ABG Total CO2 (19-24) mmol/L ABG O2 Saturation (94-97) % Potassium (3.5-5.1) mmol/L Chloride (98-107) mmol/L Carbon Dioxide (22-30) mmol/L BUN (9-20) mg/dL Creatinine (0.66-1.25) mg/dL Glucose (74-99) mg/dL POC Glucose (mg/dL) 178 H 162 H 156 H (75-99) mg/dL Microbiology - Last 24 Hours (Table) 10/11/17 21:15 Blood Culture Gram Stain - Preliminary Blood Blood Culture - Preliminary Presumptive Staph aureus 10/12/17 09:27 Body Fluid Culture - Preliminary Synovial Fluid 10/11/17 21:15 Blood Culture - Final Blood Laboratory Results WBC 23.0 k/uL (3.8-10.6) H 10/12/17 18:06 RBC 4.03 m/uL (4.30-5.90) L 10/12/17 18:06 Hgb 11.3 gm/dL (13.0-17.5) L 10/12/17 18:06 Hct 35.8 % (39.0-53.0) L 10/12/17 18:06 MCV 88.9 fL (80.0-100.0) 10/12/17 18:06 MCH 28.2 pg (25.0-35.0) 10/12/17 18:06 MCHC 31.7 g/dL (31.0-37.0) 10/12/17 18:06 RDW 13.7 % (11.5-15.5) 10/12/17 18:06 Plt Count 311 k/uL (150-450) 10/12/17 18:06 Neutrophils % 93 % 10/11/17 21:10 Lymphocytes % 3 % 10/11/17 21:10 Monocytes % 2 % 10/11/17 21:10 Eosinophils % 2 % 10/11/17 21:10 Basophils % 0 % 10/11/17 21:10 Neutrophils # 18.9 k/uL (1.3-7.7) H 10/11/17 21:10 Lymphocytes # 0.6 k/uL (1.0-4.8) L 10/11/17 21:10 Monocytes # 0.3 k/uL (0-1.0) 10/11/17 21:10 Eosinophils # 0.4 k/uL (0-0.7) 10/11/17 21:10 Basophils # 0.0 k/uL (0-0.2) 10/11/17 21:10 ESR 25 mm/hr (0-15) H 10/12/17 07:29 Sample Site sandra 10/12/17 17:48 ABG pH 7.31 (7.35-7.45) L 10/12/17 17:48 ABG pCO2 47 mmHg (35-45) H 10/12/17 17:48 ABG pO2 52 mmHg (83-108) L 10/12/17 17:48 ABG HCO3 24 mmol/L (21-25) 10/12/17 17:48 ABG Total CO2 25 mmol/L (19-24) H 10/12/17 17:48 ABG O2 Saturation 86.2 % (94-97) L 10/12/17 17:48 ABG Base Excess -2.7 mmol/L 10/12/17 17:48 Cr Test no 10/12/17 17:48 ABG Lactic Acid 1.0 mmol/L (0.5-1.6) 10/12/17 18:06 FiO2 44 % 10/12/17 17:48 Sodium 140 mmol/L (137-145) 10/12/17 17:00 Potassium 6.0 mmol/L (3.5-5.1) H 10/12/17 17:00 Chloride 108 mmol/L (98-107) H 10/12/17 17:00 Carbon Dioxide 17 mmol/L (22-30) L 10/12/17 17:00 Anion Gap 15 mmol/L 10/12/17 17:00 BUN 43 mg/dL (9-20) H 10/12/17 17:00 Creatinine 1.80 mg/dL (0.66-1.25) H 10/12/17 17:00 Est GFR (CKD-EPI)AfAm 49 (>60 ml/min/1.73 sqM) 10/12/17 17:00 Est GFR (CKD-EPI)NonAf 42 (>60 ml/min/1.73 sqM) 10/12/17 17:00 Glucose 212 mg/dL (74-99) H 10/12/17 17:00 POC Glucose (mg/dL) 156 mg/dL (75-99) H 10/12/17 22:00 POC Glu Cheese Processor LAURIE Leonard Lyonine 10/12/17 22:00 Plasma Lactic Acid Ron 1.5 mmol/L (0.7-2.0) 10/11/17 21:10 Uric Acid 5.6 mg/dL (3.5-8.5) 10/11/17 21:10 Calcium 8.4 mg/dL (8.4-10.2) 10/12/17 17:00 C-Reactive Protein 45.1 mg/L (<10.0) H 10/11/17 21:10 Microbiology 10/11/17 21:15 Blood Blood Culture Gram Stain - Preliminary 10/11/17 21:15 Blood Blood Culture - Preliminary Presumptive Staph aureus 10/12/17 09:27 Synovial Fluid Body Fluid Culture - Preliminary 10/11/17 21:15 Blood Blood Culture - Final Assessment and Plan (1) Septic arthritis of left ankle Narrative/Plan: 52-year-old male presents the emergency center with inability to bear weight to his left ankle. The patient has had some new orthotic boot manufactured in a developed a small ulcer on the dorsum of the left foot. This apparently was from a grommet from an orthotic. This was completely healed and was evaluated but was still having ongoing difficulties with ankle area. Is actively following up with orthopedic foot and ankle. The patient does have a boot that was designed that he was not wearing when he came to the office and understands it is important that he wears this when he is at work to protect his ankle from the Charcot changes. Patient however now has high-grade fever chills leukocytosis and laboratories: Positive blood culture with gram-positive cocci. The patient did have aspiration per orthopedic ankle grossly purulent material was found. Originally the plan was to go to the operating him in the morning but as the patient felt worsening sepsis he is no scheduled operating room this afternoon for the incision and drainage of this abscess. Deep cultures and pathology will also be sent. Antibiotic therapy is altered from vancomycin to daptomycin. In hopes to have a more rapid bacteriocidal activity given his rapidly declining status. Enhance glucose control be important part of his healing. Leukocytosis record related to his current sepsis. There is evidence of possible culture and he will require follow blood cultures in the morning. He was monitored for any persistence of his bacteremia. There will be a coordinated effort between orthopedic ankle and infectious disease as to the care at discharge. Current Visit: Yes Status: Acute Code(s): M00.9 - PYOGENIC ARTHRITIS, UNSPECIFIED SNOMED Code(s): 39510715 (2) Sepsis Current Visit: Yes Status: Acute Code(s): A41.9 - SEPSIS, UNSPECIFIED ORGANISM SNOMED Code(s): 33517308 (3) Poorly controlled type 2 diabetes mellitus with complication Current Visit: Yes Status: Acute Code(s): E11.8 - TYPE 2 DIABETES MELLITUS WITH UNSPECIFIED COMPLICATIONS; E11.65 - TYPE 2 DIABETES MELLITUS WITH HYPERGLYCEMIA SNOMED Code(s): 00989114
[2017-10-12 23:13] LABS: Glucose,Whole Blood 160 mg/dL (75-99)
[2017-10-13 00:03] LABS: Glucose,Whole Blood 157 mg/dL (75-99)
[2017-10-13] MEDS: HEPARIN SODIUM,PORCINE 5,000 UNIT/ML 1 ML VIAL SQ SCH ×3 (00:05→15:51)
[2017-10-13] MEDS: SODIUM CHLORIDE 0.9% 1,000 ML IV SCH ×3 (00:05→20:23)
[2017-10-13 01:50] LABS: Glucose,Whole Blood 140 mg/dL (75-99)
[2017-10-13] MEDS: KETOROLAC 30 MG/ML 1 ML VIAL IVP PRN (02:27)
[2017-10-13 03:00] LABS: Glucose,Whole Blood 171 mg/dL (75-99)
[2017-10-13 04:07] LABS: Basophils % (A) 0 %; Eosinophils % (A) 0 %; HCT 35.5 % (39.0-53.0); HGB 11.1 gm/dL (13.0-17.5); Hypochromasia Slight; Lymphocytes # (A) 0.4 k/uL (1.0-4.8); Lymphocytes % (A) 2 %; MCH 28.5 pg (25.0-35.0); MCHC 31.3 g/dL (31.0-37.0); Mean Platelet Volume 7.8; Monocytes # (A) 0.7 k/uL (0-1.0); Monocytes % (A) 4 %; Neutrophils # (A) 19.5 k/uL (1.3-7.7); Neutrophils % (A) 94 %; Platelet Count 282 k/uL (150-450); RDW 13.7 % (11.5-15.5); WBC 20.8 k/uL (3.8-10.6)
[2017-10-13 04:14] LABS: Glucose,Whole Blood 175 mg/dL (75-99)
[2017-10-13 04:16] LABS: Calcium 8.1 mg/dL (8.4-10.2); Magnesium 2.1 mg/dL (1.6-2.3); Phosphorus 5.2 mg/dL (2.5-4.5)
[2017-10-13 05:11] LABS: Glucose,Whole Blood 163 mg/dL (75-99)
[2017-10-13 06:12] LABS: Glucose,Whole Blood 178 mg/dL (75-99)
[2017-10-13] MEDS: LEVOTHYROXINE 75 MCG TAB PO SCH (06:14)
--- NOTE | 2017-10-13 07:02 | XR ---
EXAMINATION TYPE: XR chest 1V portable DATE OF EXAM: 10/13/2017 HISTORY: ICU, Saturation issues. REFERENCE: Previous study dated 10/12/2017. FINDINGS: The patient's left internal jugular catheter remains in place. Its tip is in the superior v magdy cava. There is platelike atelectasis of both lung bases. Heart size upper limits of normal. It would be dif ficult to exclude small effusions. There is vascular congestion without nisha edema. IMPRESSION: 1. CONTINUING BIBASILAR ATELECTASIS. 2. BORDERLINE CARDIOMEGALY. 3. VASCULAR CONGESTION. 4. IT WOULD BE DIFFICULT TO EXCLUDE TINY, BILATERAL EFFUSIONS.
[2017-10-13 07:13] LABS: Glucose,Whole Blood 183 mg/dL (75-99)
[2017-10-13] MEDS: PIPERACILLIN-TAZOBACTAM 3.375 GM in DEXTROSE/WATER 1 50ML.BAG IVPB SCH ×3 (07:58→21:14)
[2017-10-13] MEDS: GABAPENTIN 300 MG CAP PO SCH (08:02)
[2017-10-13] MEDS: PANTOPRAZOLE 40 MG/10 ML VIAL IV SCH (08:04)
[2017-10-13 08:14] LABS: Glucose,Whole Blood 196 mg/dL (75-99)
[2017-10-13] MEDS: METOPROLOL TARTRATE 25 MG TAB PO SCH ×2 (08:19→20:24)
[2017-10-13 09:03] LABS: Glucose,Whole Blood 201 mg/dL (75-99)
[2017-10-13] MEDS: NON-FORMULARY DRUG (Empagliflozin [Jardiance] 25 MG) PO SCH (09:03)
[2017-10-13] MEDS: PREGABALIN 100 MG CAP PO SCH ×3 (09:06→21:21)
--- NOTE | 2017-10-13 09:58 | P.PN ---
Subjective Progress Note Date: 10/13/17 Principal diagnosis: Status post left ankle irrigation and debridement with wound vac application This is a 52 year-old male post irrigation and debridement left ankle joint with wound VAC application. This is post-op day 1. The patient was evaluated at the bedside today. The patient denies nausea, vomiting, abdominal pain, and chest pain this morning. He does have some shortness of breath this morning. He states his pain is controlled at this time. The patient states that he is feeling better this morning. The patient was transferred to the ICU yesterday due to worsening sepsis. It was decided that the patient needed to undergo a emergent I&D of the ankle to control the source of infection. The patient is currently being seen by Dr. Mi and under the care of Dr. Daniel in the ICU. Objective - Vital Signs Vital signs: Vital Signs Temp 98.8 F 10/13/17 08:00 Pulse 99 10/13/17 09:00 Resp 12 10/13/17 09:00 BP 120/61 10/13/17 09:00 Pulse Ox 100 10/13/17 09:00 Intake & Output 10/12/17 10/13/17 10/13/17 18:59 06:59 18:59 Intake Total 4450 3847.704 394.167 Output Total 3800 980 405 Balance 650 2867.704 -10.833 Weight 147.418 kg 161.4 kg Intake: IV 2000 3830 385.0 0.9 bolus 2000 1000 DAPTOmycin 500 mg In 200 Sodium Chloride 0.9% 50 ml @ 100 mls/hr IV Q24HR@ 1800 [facility] Rx#:[id number] Piperacillin-Tazobactam 3 50 25.0 .375 gm In Dextrose/Water 1 50ml.bag @ 12.5 mls/hr IVPB Q8H [facility] Rx#: [id number] Sodium Chloride 0.9% 1, 1080 360 000 ml @ 120 mls/hr IV . Q8H20M [facility] Rx#:[id number] Intake, IV Titration 1600 17.704 9.167 Amount Insulin Regular 100 unit 17.704 9.167 In Sodium Chloride 0.9% 100 ml @ Per Protocol IV .Q0M [facility] Rx#:[id number] Sodium Chloride 0.9% 1, 1100 000 ml @ 100 mls/hr IV . Q10H [facility] Rx#:[id number] Vancomycin 2,000 mg In 500 Sodium Chloride 0.9% 500 ml @ 167 mls/hr IVPB Q12H [facility] Rx#:[id number] Oral 850 Output: Urine 2800 930 405 Emesis 1000 Estimated Blood Loss 50 Other: Voiding Method Toilet Indwelling Catheter Indwelling Catheter Urinal # Voids 1 ABP, PAP, CO, CI - Last Documented Arterial Blood Pressure 133/51 - Exam The patient does not appear in acute distress. Alert and orientated x3. Wound vac dressing is clean dry and intact. Calf is soft and nontender. He is able to wiggle his toes without difficulty. Sensation and circulatory status is intact. - Labs CBC & Chem 7: 10/13/17 03:35 10/13/17 03:35 Labs: Abnormal Lab Results - Last 24 Hours (Table) 10/12/17 10/12/17 10/12/17 Range/Units 07:29 11:31 17:00 WBC (3.8-10.6) k/uL RBC (4.30-5.90) m/uL Hgb (13.0-17.5) gm/dL Hct (39.0-53.0) % Neutrophils # (1.3-7.7) k/uL Lymphocytes # (1.0-4.8) k/uL ESR 25 H (0-15) mm/hr ABG pH (7.35-7.45) ABG pCO2 (35-45) mmHg ABG pO2 (83-108) mmHg ABG Total CO2 (19-24) mmol/L ABG O2 Saturation (94-97) % Potassium 6.0 H (3.5-5.1) mmol/L Chloride 108 H (98-107) mmol/L Carbon Dioxide 17 L (22-30) mmol/L BUN 43 H (9-20) mg/dL Creatinine 1.80 H (0.66-1.25) mg/dL Glucose 212 H (74-99) mg/dL POC Glucose (mg/dL) 357 H (75-99) mg/dL Calcium (8.4-10.2) mg/dL Phosphorus (2.5-4.5) mg/dL 10/12/17 10/12/17 10/12/17 Range/Units 17:26 17:48 18:06 WBC 23.0 H (3.8-10.6) k/uL RBC 4.03 L (4.30-5.90) m/uL Hgb 11.3 L (13.0-17.5) gm/dL Hct 35.8 L (39.0-53.0) % Neutrophils # (1.3-7.7) k/uL Lymphocytes # (1.0-4.8) k/uL ESR (0-15) mm/hr ABG pH 7.31 L (7.35-7.45) ABG pCO2 47 H (35-45) mmHg ABG pO2 52 L (83-108) mmHg ABG Total CO2 25 H (19-24) mmol/L ABG O2 Saturation 86.2 L (94-97) % Potassium (3.5-5.1) mmol/L Chloride (98-107) mmol/L Carbon Dioxide (22-30) mmol/L BUN (9-20) mg/dL Creatinine (0.66-1.25) mg/dL Glucose (74-99) mg/dL POC Glucose (mg/dL) 196 H (75-99) mg/dL Calcium (8.4-10.2) mg/dL Phosphorus (2.5-4.5) mg/dL 10/12/17 10/12/17 10/12/17 Range/Units 20:10 21:04 21:33 WBC (3.8-10.6) k/uL RBC (4.30-5.90) m/uL Hgb (13.0-17.5) gm/dL Hct (39.0-53.0) % Neutrophils # (1.3-7.7) k/uL Lymphocytes # (1.0-4.8) k/uL ESR (0-15) mm/hr ABG pH (7.35-7.45) ABG pCO2 (35-45) mmHg ABG pO2 (83-108) mmHg ABG Total CO2 (19-24) mmol/L ABG O2 Saturation (94-97) % Potassium (3.5-5.1) mmol/L Chloride (98-107) mmol/L Carbon Dioxide (22-30) mmol/L BUN (9-20) mg/dL Creatinine (0.66-1.25) mg/dL Glucose (74-99) mg/dL POC Glucose (mg/dL) 274 H 178 H 162 H (75-99) mg/dL Calcium (8.4-10.2) mg/dL Phosphorus (2.5-4.5) mg/dL 10/12/17 10/12/17 10/13/17 Range/Units 22:00 23:11 00:01 WBC (3.8-10.6) k/uL RBC (4.30-5.90) m/uL Hgb (13.0-17.5) gm/dL Hct (39.0-53.0) % Neutrophils # (1.3-7.7) k/uL Lymphocytes # (1.0-4.8) k/uL ESR (0-15) mm/hr ABG pH (7.35-7.45) ABG pCO2 (35-45) mmHg ABG pO2 (83-108) mmHg ABG Total CO2 (19-24) mmol/L ABG O2 Saturation (94-97) % Potassium (3.5-5.1) mmol/L Chloride (98-107) mmol/L Carbon Dioxide (22-30) mmol/L BUN (9-20) mg/dL Creatinine (0.66-1.25) mg/dL Glucose (74-99) mg/dL POC Glucose (mg/dL) 156 H 160 H 157 H (75-99) mg/dL Calcium (8.4-10.2) mg/dL Phosphorus (2.5-4.5) mg/dL 10/13/17 10/13/17 10/13/17 Range/Units 01:48 02:57 03:35 WBC 20.8 H (3.8-10.6) k/uL RBC 3.90 L (4.30-5.90) m/uL Hgb 11.1 L (13.0-17.5) gm/dL Hct 35.5 L (39.0-53.0) % Neutrophils # 19.5 H (1.3-7.7) k/uL Lymphocytes # 0.4 L (1.0-4.8) k/uL ESR (0-15) mm/hr ABG pH (7.35-7.45) ABG pCO2 (35-45) mmHg ABG pO2 (83-108) mmHg ABG Total CO2 (19-24) mmol/L ABG O2 Saturation (94-97) % Potassium (3.5-5.1) mmol/L Chloride (98-107) mmol/L Carbon Dioxide (22-30) mmol/L BUN (9-20) mg/dL Creatinine (0.66-1.25) mg/dL Glucose (74-99) mg/dL POC Glucose (mg/dL) 140 H 171 H (75-99) mg/dL Calcium (8.4-10.2) mg/dL Phosphorus (2.5-4.5) mg/dL 10/13/17 10/13/17 10/13/17 Range/Units 03:35 04:11 05:10 WBC (3.8-10.6) k/uL RBC (4.30-5.90) m/uL Hgb (13.0-17.5) gm/dL Hct (39.0-53.0) % Neutrophils # (1.3-7.7) k/uL Lymphocytes # (1.0-4.8) k/uL ESR (0-15) mm/hr ABG pH (7.35-7.45) ABG pCO2 (35-45) mmHg ABG pO2 (83-108) mmHg ABG Total CO2 (19-24) mmol/L ABG O2 Saturation (94-97) % Potassium (3.5-5.1) mmol/L Chloride 108 H (98-107) mmol/L Carbon Dioxide 20 L (22-30) mmol/L BUN 45 H (9-20) mg/dL Creatinine 2.00 H (0.66-1.25) mg/dL Glucose 168 H (74-99) mg/dL POC Glucose (mg/dL) 175 H 163 H (75-99) mg/dL Calcium 8.1 L (8.4-10.2) mg/dL Phosphorus 5.2 H (2.5-4.5) mg/dL 10/13/17 10/13/17 10/13/17 Range/Units 06:11 07:11 08:13 WBC (3.8-10.6) k/uL RBC (4.30-5.90) m/uL Hgb (13.0-17.5) gm/dL Hct (39.0-53.0) % Neutrophils # (1.3-7.7) k/uL Lymphocytes # (1.0-4.8) k/uL ESR (0-15) mm/hr ABG pH (7.35-7.45) ABG pCO2 (35-45) mmHg ABG pO2 (83-108) mmHg ABG Total CO2 (19-24) mmol/L ABG O2 Saturation (94-97) % Potassium (3.5-5.1) mmol/L Chloride (98-107) mmol/L Carbon Dioxide (22-30) mmol/L BUN (9-20) mg/dL Creatinine (0.66-1.25) mg/dL Glucose (74-99) mg/dL POC Glucose (mg/dL) 178 H 183 H 196 H (75-99) mg/dL Calcium (8.4-10.2) mg/dL Phosphorus (2.5-4.5) mg/dL 10/13/17 Range/Units 09:01 WBC (3.8-10.6) k/uL RBC (4.30-5.90) m/uL Hgb (13.0-17.5) gm/dL Hct (39.0-53.0) % Neutrophils # (1.3-7.7) k/uL Lymphocytes # (1.0-4.8) k/uL ESR (0-15) mm/hr ABG pH (7.35-7.45) ABG pCO2 (35-45) mmHg ABG pO2 (83-108) mmHg ABG Total CO2 (19-24) mmol/L ABG O2 Saturation (94-97) % Potassium (3.5-5.1) mmol/L Chloride (98-107) mmol/L Carbon Dioxide (22-30) mmol/L BUN (9-20) mg/dL Creatinine (0.66-1.25) mg/dL Glucose (74-99) mg/dL POC Glucose (mg/dL) 201 H (75-99) mg/dL Calcium (8.4-10.2) mg/dL Phosphorus (2.5-4.5) mg/dL Microbiology - Last 24 Hours (Table) 10/12/17 09:27 Gram Stain - Preliminary Synovial Fluid Body Fluid Culture - Preliminary Presumptive Staph aureus 10/12/17 19:48 Gram Stain - Preliminary Ankle - Left Wound Culture - Preliminary 10/12/17 19:48 Gram Stain - Preliminary Ankle - Left Wound Culture - Preliminary 10/12/17 19:48 Anaerobic Culture - Preliminary Ankle - Left 10/12/17 19:48 Anaerobic Culture - Preliminary Ankle - Left 10/11/17 21:15 Blood Culture Gram Stain - Preliminary Blood Blood Culture - Preliminary Presumptive Staph aureus 10/11/17 21:15 Blood Culture - Final Blood Assessment and Plan (1) Poorly controlled type 2 diabetes mellitus with complication Current Visit: Yes Status: Acute Code(s): E11.8 - TYPE 2 DIABETES MELLITUS WITH UNSPECIFIED COMPLICATIONS; E11.65 - TYPE 2 DIABETES MELLITUS WITH HYPERGLYCEMIA SNOMED Code(s): 42055887 (2) Sepsis Current Visit: Yes Status: Acute Code(s): A41.9 - SEPSIS, UNSPECIFIED ORGANISM SNOMED Code(s): 19750792 (3) Septic arthritis of left ankle Current Visit: Yes Status: Acute Code(s): M00.9 - PYOGENIC ARTHRITIS, UNSPECIFIED SNOMED Code(s): 94562057 Plan: 1. Continue pain control 2. Anticoagulation with Heparin per internal medicine 3. Continue wound vac 4. Antibiotics per infectious disease, cultures are pending. Blood cultures are positive for staph aureus. 5. Continue to follow closely with internal medicine, pulmonology, and infectious disease.
[2017-10-13 09:59] LABS: Glucose,Whole Blood 202 mg/dL (75-99)
[2017-10-13 11:14] LABS: Glucose,Whole Blood 201 mg/dL (75-99)
[2017-10-13 12:02] LABS: Glucose,Whole Blood 191 mg/dL (75-99)
[2017-10-13 13:01] LABS: Glucose,Whole Blood 235 mg/dL (75-99)
[2017-10-13] MEDS: ONDANSETRON 4 MG/2 ML VIAL IVP PRN (13:09)
--- NOTE | 2017-10-13 13:13 | P.PN ---
Subjective Progress Note Date: 10/13/17 This is a 52-year-old male patient, diabetic, known history of severe peripheral neuropathy, charcoal joints and previous amputation of the right foot , partial, presenting again today to the hospital because of pain and swelling following an ankle sprain on the left. The patient had been having progressive increase in swelling and pain in the left lower extremity mainly in the ankle area and there is increase in warmth. He came into the emergency department. He was seen by orthopedic surgery. The fluid joints was aspirated and the results are still pending for now. Meanwhile he became progressively more septic and he got transferred to the intensive care unit because of increased tachycardia, tachypnea, right gutters and hypotension and diminished level of consciousness. Apparently the patient was hypoxic with a pulse ox of 80% on the floor. Upon arrival to the ICU he was placed on high flow oxygen initially at 5 L/m nasal cannula which brought his saturation above 90%. He had a temperature 104.2. His heart rate was 130s sinus. He was quite lethargic and dry. He was started on aggressive fluid resuscitation 2 L of bolus of being given right now. Blood cultures positive and I discussed the case with infectious disease and the patient will be switched to daptomycin. The patient will also go to the operating room for immediate I&D. The patient has elevated blood sugar and he will be started on insulin drip for blood sugar control. Chest x-ray post-line insertion showed some smaller lung volumes. No pneumothorax. Some early atelectatic changes in lung bases bilaterally. An art line catheter was also inserted. Subsequently blood gases showed a pH of 7.3 with a pCO2 of 47 and pO2 of 52 and the patient was placed on 100% nonrebreather facemask. On 10/11/2017, the patient is being seen in follow-up in the intensive care unit. The patient came in with a septic arthritis and sepsis to the intensive care unit. The patient was lethargic and septic looking in addition to fever tachycardia leukocytosis. He was also in acute hypoxic respiratory failure. He made resuscitation was done. Following that the patient got transferred to the operating room where the patient underwent irrigation and debridement of the left ankle joint and there was application of a wound VAC to the left ankle. The patient is currently back to the intensive care unit. This morning is awake and alert. He is following commands and answering questions. He is on high flow oxygen at 12 L/m nasal cannula and this will be gradually weaned down as the patient's oxidation is improved. Denies having any respiratory distress. He is less tachycardic compared to yesterday. He did not require any pressors. The blood cultures positive for staph aureus. The patient is currently on daptomycin. He is also on IV Zosyn. A wound VAC is applied to the left foot. His blood sugars under better control with an insulin drip. He is morbidly obese. Denies having any complaints. No chest pain. No shortness of breath. No altered mentation. No other complaints otherwise for now. His white cell count remains elevated at 20.8. He did suffer an acute kidney injury in the creatinine is up to 2. The patient continues to be an IV fluids and is producing adequate amount of urine output. The neck fluid balance is + 3.5 L over the past 24 hours. Objective - Vital Signs Vital signs: Vital Signs Temp 99.1 F 10/13/17 13:00 Pulse 98 10/13/17 13:00 Resp 27 H 10/13/17 13:00 BP 97/62 10/13/17 13:00 Pulse Ox 94 L 10/13/17 13:00 Intake & Output 10/12/17 10/13/17 10/13/17 18:59 06:59 18:59 Intake Total 4450 3847.704 920.809 Output Total 3800 980 870 Balance 650 2867.704 50.809 Weight 147.418 kg 161.4 kg Intake: IV 2000 3830 890.0 0.9 bolus 2000 1000 DAPTOmycin 500 mg In 200 Sodium Chloride 0.9% 50 ml @ 100 mls/hr IV Q24HR@ 1800 [facility] Rx#:[id number] Piperacillin-Tazobactam 3 50 50.0 .375 gm In Dextrose/Water 1 50ml.bag @ 12.5 mls/hr IVPB Q8H [facility] Rx#: [id number] Sodium Chloride 0.9% 1, 1080 840 000 ml @ 120 mls/hr IV . Q8H20M [facility] Rx#:[id number] Intake, IV Titration 1600 17.704 30.809 Amount Insulin Regular 100 unit 17.704 30.809 In Sodium Chloride 0.9% 100 ml @ Per Protocol IV .Q0M [facility] Rx#:[id number] Sodium Chloride 0.9% 1, 1100 000 ml @ 100 mls/hr IV . Q10H [facility] Rx#:[id number] Vancomycin 2,000 mg In 500 Sodium Chloride 0.9% 500 ml @ 167 mls/hr IVPB Q12H [facility] Rx#:[id number] Oral 850 Output: Urine 2800 930 870 Emesis 1000 Estimated Blood Loss 50 Other: Voiding Method Toilet Indwelling Catheter Indwelling Catheter Urinal # Voids 1 ABP, PAP, CO, CI - Last Documented Arterial Blood Pressure 135/60 - Exam Gen. appearance the patient is calm and comfortable likely distress. He is morbidly obese with a BMI of 46.9. Head exam was generally normal. There was no scleral icterus or corneal arcus. Mucous membranes were moist. Neck was supple and without jugular venous distension, thyromegaly, or carotid bruits. Carotids were easily palpable bilaterally. There was no adenopathy. The patient has a Mallampati class IV and significant crowding of the posterior oropharynx Lungs were clear to auscultation and percussion, and with normal diaphragmatic excursion. No wheezes or rales were noted. The breath sounds are diminished in lung bases bilaterally. Cardiac exam revealed the PMI to be normally situated and sized. The rhythm was regular and no extrasystoles were noted during several minutes of auscultation. The first and second heart sounds were normal and physiologic splitting of the second heart sound was noted. There were no murmurs, rubs, clicks, or gallops., The patient remains tachycardic although this is improved compared to yesterday Abdominal exam revealed normal bowel sounds. The abdomen was soft, non-tender, and without masses, organomegaly, or appreciable enlargement of the abdominal aorta. Organs cannot be accurately palpated as the patient is morbidly obese Extremities Wound vac dressing is clean dry and intact. Calf is soft and nontender. He is able to wiggle his toes without difficulty. Sensation and circulatory status is intact. Neurologically the patient is awake and alert and there is no focal neurological deficit. Psychiatrically the patient has an appropriate mood and affect Examination of the skin revealed no evidence of significant rashes, suspicious appearing nevi or other concerning lesions.. - Labs CBC & Chem 7: 10/13/17 03:35 10/13/17 03:35 Labs: Abnormal Lab Results - Last 24 Hours (Table) 10/12/17 10/12/17 10/12/17 Range/Units 07:29 17:00 17:26 WBC (3.8-10.6) k/uL RBC (4.30-5.90) m/uL Hgb (13.0-17.5) gm/dL Hct (39.0-53.0) % Neutrophils # (1.3-7.7) k/uL Lymphocytes # (1.0-4.8) k/uL ABG pH (7.35-7.45) ABG pCO2 (35-45) mmHg ABG pO2 (83-108) mmHg ABG Total CO2 (19-24) mmol/L ABG O2 Saturation (94-97) % Potassium 6.0 H (3.5-5.1) mmol/L Chloride 108 H (98-107) mmol/L Carbon Dioxide 17 L (22-30) mmol/L BUN 43 H (9-20) mg/dL Creatinine 1.80 H (0.66-1.25) mg/dL Glucose 212 H (74-99) mg/dL POC Glucose (mg/dL) 196 H (75-99) mg/dL Hemoglobin A1c 9.1 H (4.0-6.0) % Calcium (8.4-10.2) mg/dL Phosphorus (2.5-4.5) mg/dL 10/12/17 10/12/17 10/12/17 Range/Units 17:48 18:06 20:10 WBC 23.0 H (3.8-10.6) k/uL RBC 4.03 L (4.30-5.90) m/uL Hgb 11.3 L (13.0-17.5) gm/dL Hct 35.8 L (39.0-53.0) % Neutrophils # (1.3-7.7) k/uL Lymphocytes # (1.0-4.8) k/uL ABG pH 7.31 L (7.35-7.45) ABG pCO2 47 H (35-45) mmHg ABG pO2 52 L (83-108) mmHg ABG Total CO2 25 H (19-24) mmol/L ABG O2 Saturation 86.2 L (94-97) % Potassium (3.5-5.1) mmol/L Chloride (98-107) mmol/L Carbon Dioxide (22-30) mmol/L BUN (9-20) mg/dL Creatinine (0.66-1.25) mg/dL Glucose (74-99) mg/dL POC Glucose (mg/dL) 274 H (75-99) mg/dL Hemoglobin A1c (4.0-6.0) % Calcium (8.4-10.2) mg/dL Phosphorus (2.5-4.5) mg/dL 10/12/17 10/12/17 10/12/17 Range/Units 21:04 21:33 22:00 WBC (3.8-10.6) k/uL RBC (4.30-5.90) m/uL Hgb (13.0-17.5) gm/dL Hct (39.0-53.0) % Neutrophils # (1.3-7.7) k/uL Lymphocytes # (1.0-4.8) k/uL ABG pH (7.35-7.45) ABG pCO2 (35-45) mmHg ABG pO2 (83-108) mmHg ABG Total CO2 (19-24) mmol/L ABG O2 Saturation (94-97) % Potassium (3.5-5.1) mmol/L Chloride (98-107) mmol/L Carbon Dioxide (22-30) mmol/L BUN (9-20) mg/dL Creatinine (0.66-1.25) mg/dL Glucose (74-99) mg/dL POC Glucose (mg/dL) 178 H 162 H 156 H (75-99) mg/dL Hemoglobin A1c (4.0-6.0) % Calcium (8.4-10.2) mg/dL Phosphorus (2.5-4.5) mg/dL 10/12/17 10/13/17 10/13/17 Range/Units 23:11 00:01 01:48 WBC (3.8-10.6) k/uL RBC (4.30-5.90) m/uL Hgb (13.0-17.5) gm/dL Hct (39.0-53.0) % Neutrophils # (1.3-7.7) k/uL Lymphocytes # (1.0-4.8) k/uL ABG pH (7.35-7.45) ABG pCO2 (35-45) mmHg ABG pO2 (83-108) mmHg ABG Total CO2 (19-24) mmol/L ABG O2 Saturation (94-97) % Potassium (3.5-5.1) mmol/L Chloride (98-107) mmol/L Carbon Dioxide (22-30) mmol/L BUN (9-20) mg/dL Creatinine (0.66-1.25) mg/dL Glucose (74-99) mg/dL POC Glucose (mg/dL) 160 H 157 H 140 H (75-99) mg/dL Hemoglobin A1c (4.0-6.0) % Calcium (8.4-10.2) mg/dL Phosphorus (2.5-4.5) mg/dL 10/13/17 10/13/17 10/13/17 Range/Units 02:57 03:35 03:35 WBC 20.8 H (3.8-10.6) k/uL RBC 3.90 L (4.30-5.90) m/uL Hgb 11.1 L (13.0-17.5) gm/dL Hct 35.5 L (39.0-53.0) % Neutrophils # 19.5 H (1.3-7.7) k/uL Lymphocytes # 0.4 L (1.0-4.8) k/uL ABG pH (7.35-7.45) ABG pCO2 (35-45) mmHg ABG pO2 (83-108) mmHg ABG Total CO2 (19-24) mmol/L ABG O2 Saturation (94-97) % Potassium (3.5-5.1) mmol/L Chloride 108 H (98-107) mmol/L Carbon Dioxide 20 L (22-30) mmol/L BUN 45 H (9-20) mg/dL Creatinine 2.00 H (0.66-1.25) mg/dL Glucose 168 H (74-99) mg/dL POC Glucose (mg/dL) 171 H (75-99) mg/dL Hemoglobin A1c (4.0-6.0) % Calcium 8.1 L (8.4-10.2) mg/dL Phosphorus 5.2 H (2.5-4.5) mg/dL 10/13/17 10/13/17 10/13/17 Range/Units 04:11 05:10 06:11 WBC (3.8-10.6) k/uL RBC (4.30-5.90) m/uL Hgb (13.0-17.5) gm/dL Hct (39.0-53.0) % Neutrophils # (1.3-7.7) k/uL Lymphocytes # (1.0-4.8) k/uL ABG pH (7.35-7.45) ABG pCO2 (35-45) mmHg ABG pO2 (83-108) mmHg ABG Total CO2 (19-24) mmol/L ABG O2 Saturation (94-97) % Potassium (3.5-5.1) mmol/L Chloride (98-107) mmol/L Carbon Dioxide (22-30) mmol/L BUN (9-20) mg/dL Creatinine (0.66-1.25) mg/dL Glucose (74-99) mg/dL POC Glucose (mg/dL) 175 H 163 H 178 H (75-99) mg/dL Hemoglobin A1c (4.0-6.0) % Calcium (8.4-10.2) mg/dL Phosphorus (2.5-4.5) mg/dL 10/13/17 10/13/17 10/13/17 Range/Units 07:11 08:13 09:01 WBC (3.8-10.6) k/uL RBC (4.30-5.90) m/uL Hgb (13.0-17.5) gm/dL Hct (39.0-53.0) % Neutrophils # (1.3-7.7) k/uL Lymphocytes # (1.0-4.8) k/uL ABG pH (7.35-7.45) ABG pCO2 (35-45) mmHg ABG pO2 (83-108) mmHg ABG Total CO2 (19-24) mmol/L ABG O2 Saturation (94-97) % Potassium (3.5-5.1) mmol/L Chloride (98-107) mmol/L Carbon Dioxide (22-30) mmol/L BUN (9-20) mg/dL Creatinine (0.66-1.25) mg/dL Glucose (74-99) mg/dL POC Glucose (mg/dL) 183 H 196 H 201 H (75-99) mg/dL Hemoglobin A1c (4.0-6.0) % Calcium (8.4-10.2) mg/dL Phosphorus (2.5-4.5) mg/dL 10/13/17 10/13/17 10/13/17 Range/Units 09:57 10:53 12:01 WBC (3.8-10.6) k/uL RBC (4.30-5.90) m/uL Hgb (13.0-17.5) gm/dL Hct (39.0-53.0) % Neutrophils # (1.3-7.7) k/uL Lymphocytes # (1.0-4.8) k/uL ABG pH (7.35-7.45) ABG pCO2 (35-45) mmHg ABG pO2 (83-108) mmHg ABG Total CO2 (19-24) mmol/L ABG O2 Saturation (94-97) % Potassium (3.5-5.1) mmol/L Chloride (98-107) mmol/L Carbon Dioxide (22-30) mmol/L BUN (9-20) mg/dL Creatinine (0.66-1.25) mg/dL Glucose (74-99) mg/dL POC Glucose (mg/dL) 202 H 201 H 191 H (75-99) mg/dL Hemoglobin A1c (4.0-6.0) % Calcium (8.4-10.2) mg/dL Phosphorus (2.5-4.5) mg/dL 10/13/17 Range/Units 12:59 WBC (3.8-10.6) k/uL RBC (4.30-5.90) m/uL Hgb (13.0-17.5) gm/dL Hct (39.0-53.0) % Neutrophils # (1.3-7.7) k/uL Lymphocytes # (1.0-4.8) k/uL ABG pH (7.35-7.45) ABG pCO2 (35-45) mmHg ABG pO2 (83-108) mmHg ABG Total CO2 (19-24) mmol/L ABG O2 Saturation (94-97) % Potassium (3.5-5.1) mmol/L Chloride (98-107) mmol/L Carbon Dioxide (22-30) mmol/L BUN (9-20) mg/dL Creatinine (0.66-1.25) mg/dL Glucose (74-99) mg/dL POC Glucose (mg/dL) 235 H (75-99) mg/dL Hemoglobin A1c (4.0-6.0) % Calcium (8.4-10.2) mg/dL Phosphorus (2.5-4.5) mg/dL Microbiology - Last 24 Hours (Table) 10/12/17 09:27 Gram Stain - Preliminary Synovial Fluid Body Fluid Culture - Preliminary Presumptive Staph aureus 10/12/17 19:48 Gram Stain - Preliminary Ankle - Left Wound Culture - Preliminary 10/12/17 19:48 Gram Stain - Preliminary Ankle - Left Wound Culture - Preliminary 10/12/17 19:48 Anaerobic Culture - Preliminary Ankle - Left 10/12/17 19:48 Anaerobic Culture - Preliminary Ankle - Left 10/11/17 21:15 Blood Culture Gram Stain - Preliminary Blood Blood Culture - Preliminary Presumptive Staph aureus 10/11/17 21:15 Blood Culture - Final Blood Assessment and Plan Plan: Assessment 1 acute septic arthritis of the left ankle, status post left ankle irrigation and debridement and the patient is postop day #1. There is also application of a wound VAC to left ankle. Patient is postop day #1. 2 acute sepsis secondary to above and the blood cultures positive for gram- positive cocci. Suspect staphylococcal septicemia secondary to a septic joint infection at the level of the ankle, the patient is currently on a combination of daptomycin IV Zosyn. Hemodynamically stable and less tachycardic compared to yesterday. 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 The patient likely has a staphylococcal septicemia and the patient is on a combination of daptomycin and IV Zosyn. Monitor the renal function. Monitor the blood cultures and do the necessity antibiotic adjustments accordingly. ID is on the case. Wound VAC has been applied to the left ankle area. The patient is awake. FiO2 will be gradually weaned down to maintain a saturation above 90%. Heparin subcu for DVT prophylaxis. The patient has a triple-lumen catheter in place. He'll be kept in ICU for another 24 hours. We'll continue to follow. Orthopedic surgery is also on the case regarding this acute septic event. Continue insulin drip for another 24 hours for tighter blood sugar control.
[2017-10-13] MEDS ORDERED: ACETAMINOPHEN IV (For NPO) 1,000 MG in EMPTY BAG 1 BAG IVPB PRN (13:30)
--- NOTE | 2017-10-13 13:49 | P.PN ---
Subjective Progress Note Date: 10/13/17 Principal diagnosis: Sepsis 52-year-old male has a long-standing history of diabetes mellitus type 2 poorly controlled and history of a prior diabetic foot ulceration to the right foot which resulted in a great toe amputation. The patient is been having some difficulties with his left ankle and following with the orthopedic surgeon. Because of some discomfort at the joint he was measured and given a new bracing device for the foot and ankle. However grommet on the dorsum of the foot resulted in a bit of an ulcer and he was concerned and sought care in the office. The patient had difficulty making the appointment because of the weather and has significant distance from work to the office and reschedule. When he came to the office earlier this week the ulceration had healed and he was feeling better but was still having some swelling to the ankle area. He had no fever or chills at the time of presentation to the office, but did have the swelling to the ankle area for which she had a specialty boot that have been designed that he was not wearing that day. He however presents to the emergency center because of the sudden onset of inability to bear weight to the ankle because of the amount of pain that he started to have. Shortly thereafter he became febrile and has had a rapid decline in his status with evidence of sepsis and presentation to the intensive care unit. The case is discussed with the print shop assistant as well as the orthopedic foot and ankle specialist. Given his rapid decline in status he'll go to the operating room this afternoon. The patient is acutely ill with fever chills generalized weakness and malaise and some alteration of his mental status 10/13/2017 patient remains in intensive care unit with ongoing sepsis. Appears to have acute lung injury and also has an elevation of his creatinine likely with an acute renal injury also occurring from his sepsis. Laboratories revealed evidence of staph aureus await final susceptibility. Follow blood cultures in process reasonable cultures are positive. Patient continues to have some ongoing fevers and is admitted of nausea with the response to Zofran. He is still in a warm flushed phase of sepsis and hopefully now that he has been resuscitated will have further improvement of his status. Objective - Vital Signs Vital signs: Vital Signs Temp 99.1 F 10/13/17 13:00 Pulse 98 10/13/17 13:00 Resp 27 H 10/13/17 13:00 BP 97/62 10/13/17 13:00 Pulse Ox 94 L 10/13/17 13:00 Intake & Output 10/12/17 10/13/17 10/13/17 18:59 06:59 18:59 Intake Total 4450 3847.704 920.809 Output Total 3800 980 870 Balance 650 2867.704 50.809 Weight 147.418 kg 161.4 kg Intake: IV 2000 3830 890.0 0.9 bolus 2000 1000 DAPTOmycin 500 mg In 200 Sodium Chloride 0.9% 50 ml @ 100 mls/hr IV Q24HR@ 1800 [facility] Rx#:[id number] Piperacillin-Tazobactam 3 50 50.0 .375 gm In Dextrose/Water 1 50ml.bag @ 12.5 mls/hr IVPB Q8H [facility] Rx#: [id number] Sodium Chloride 0.9% 1, 1080 840 000 ml @ 120 mls/hr IV . Q8H20M [facility] Rx#:[id number] Intake, IV Titration 1600 17.704 30.809 Amount Insulin Regular 100 unit 17.704 30.809 In Sodium Chloride 0.9% 100 ml @ Per Protocol IV .Q0M [facility] Rx#:[id number] Sodium Chloride 0.9% 1, 1100 000 ml @ 100 mls/hr IV . Q10H [facility] Rx#:[id number] Vancomycin 2,000 mg In 500 Sodium Chloride 0.9% 500 ml @ 167 mls/hr IVPB Q12H [facility] Rx#:[id number] Oral 850 Output: Urine 2800 930 870 Emesis 1000 Estimated Blood Loss 50 Other: Voiding Method Toilet Indwelling Catheter Indwelling Catheter Urinal # Voids 1 ABP, PAP, CO, CI - Last Documented Arterial Blood Pressure 135/60 - Exam 52-year-old male presents to Hospital feeling acutely ill found to have evidence of fever and then rapidly developed sepsis HEENT: Anicteric conjunctiva are pink and moist nasal mucosa grossly intact without significant lesions, there is no thrush. Neck: The neck is supple without significant lymphadenopathy or thyromegaly. Lungs: Good bilateral air entry without significant crackles or wheezing. There is no significant bronchial sounds. There is no egophony or dullness. Heart: Tachycardic but regular with an audible S1 and S2 soft S4 There is no significant murmur click or rub, PMI was nondisplaced. Abdomen: Obese Positive bowel sounds soft and nontender without palpable masses or organomegaly. There was no guarding or rebound. Extremities: The upper extremities have excellent pulses they are symmetric, no significant petechiae or telangiectasia. No splinter hemorrhages were noted. Right lower extremity has evidence of the prior great toe amputation which is well healed. Left lower extremity reveals evidence of the wound VAC at the site of the surgical incision and drainage performed yesterday. This it is uncomfortable to any range of motion. There is no significant erythema that has ascended the limb at this time. There is no inguinal lymphadenopathy. Neuro: Arousable oriented - Labs CBC & Chem 7: 10/13/17 03:35 10/13/17 03:35 Labs: Abnormal Lab Results - Last 24 Hours (Table) 10/12/17 10/12/17 10/12/17 Range/Units 07:29 17:00 17:26 WBC (3.8-10.6) k/uL RBC (4.30-5.90) m/uL Hgb (13.0-17.5) gm/dL Hct (39.0-53.0) % Neutrophils # (1.3-7.7) k/uL Lymphocytes # (1.0-4.8) k/uL ABG pH (7.35-7.45) ABG pCO2 (35-45) mmHg ABG pO2 (83-108) mmHg ABG Total CO2 (19-24) mmol/L ABG O2 Saturation (94-97) % Potassium 6.0 H (3.5-5.1) mmol/L Chloride 108 H (98-107) mmol/L Carbon Dioxide 17 L (22-30) mmol/L BUN 43 H (9-20) mg/dL Creatinine 1.80 H (0.66-1.25) mg/dL Glucose 212 H (74-99) mg/dL POC Glucose (mg/dL) 196 H (75-99) mg/dL Hemoglobin A1c 9.1 H (4.0-6.0) % Calcium (8.4-10.2) mg/dL Phosphorus (2.5-4.5) mg/dL 10/12/17 10/12/17 10/12/17 Range/Units 17:48 18:06 20:10 WBC 23.0 H (3.8-10.6) k/uL RBC 4.03 L (4.30-5.90) m/uL Hgb 11.3 L (13.0-17.5) gm/dL Hct 35.8 L (39.0-53.0) % Neutrophils # (1.3-7.7) k/uL Lymphocytes # (1.0-4.8) k/uL ABG pH 7.31 L (7.35-7.45) ABG pCO2 47 H (35-45) mmHg ABG pO2 52 L (83-108) mmHg ABG Total CO2 25 H (19-24) mmol/L ABG O2 Saturation 86.2 L (94-97) % Potassium (3.5-5.1) mmol/L Chloride (98-107) mmol/L Carbon Dioxide (22-30) mmol/L BUN (9-20) mg/dL Creatinine (0.66-1.25) mg/dL Glucose (74-99) mg/dL POC Glucose (mg/dL) 274 H (75-99) mg/dL Hemoglobin A1c (4.0-6.0) % Calcium (8.4-10.2) mg/dL Phosphorus (2.5-4.5) mg/dL 10/12/17 10/12/17 10/12/17 Range/Units 21:04 21:33 22:00 WBC (3.8-10.6) k/uL RBC (4.30-5.90) m/uL Hgb (13.0-17.5) gm/dL Hct (39.0-53.0) % Neutrophils # (1.3-7.7) k/uL Lymphocytes # (1.0-4.8) k/uL ABG pH (7.35-7.45) ABG pCO2 (35-45) mmHg ABG pO2 (83-108) mmHg ABG Total CO2 (19-24) mmol/L ABG O2 Saturation (94-97) % Potassium (3.5-5.1) mmol/L Chloride (98-107) mmol/L Carbon Dioxide (22-30) mmol/L BUN (9-20) mg/dL Creatinine (0.66-1.25) mg/dL Glucose (74-99) mg/dL POC Glucose (mg/dL) 178 H 162 H 156 H (75-99) mg/dL Hemoglobin A1c (4.0-6.0) % Calcium (8.4-10.2) mg/dL Phosphorus (2.5-4.5) mg/dL 10/12/17 10/13/17 10/13/17 Range/Units 23:11 00:01 01:48 WBC (3.8-10.6) k/uL RBC (4.30-5.90) m/uL Hgb (13.0-17.5) gm/dL Hct (39.0-53.0) % Neutrophils # (1.3-7.7) k/uL Lymphocytes # (1.0-4.8) k/uL ABG pH (7.35-7.45) ABG pCO2 (35-45) mmHg ABG pO2 (83-108) mmHg ABG Total CO2 (19-24) mmol/L ABG O2 Saturation (94-97) % Potassium (3.5-5.1) mmol/L Chloride (98-107) mmol/L Carbon Dioxide (22-30) mmol/L BUN (9-20) mg/dL Creatinine (0.66-1.25) mg/dL Glucose (74-99) mg/dL POC Glucose (mg/dL) 160 H 157 H 140 H (75-99) mg/dL Hemoglobin A1c (4.0-6.0) % Calcium (8.4-10.2) mg/dL Phosphorus (2.5-4.5) mg/dL 10/13/17 10/13/17 10/13/17 Range/Units 02:57 03:35 03:35 WBC 20.8 H (3.8-10.6) k/uL RBC 3.90 L (4.30-5.90) m/uL Hgb 11.1 L (13.0-17.5) gm/dL Hct 35.5 L (39.0-53.0) % Neutrophils # 19.5 H (1.3-7.7) k/uL Lymphocytes # 0.4 L (1.0-4.8) k/uL ABG pH (7.35-7.45) ABG pCO2 (35-45) mmHg ABG pO2 (83-108) mmHg ABG Total CO2 (19-24) mmol/L ABG O2 Saturation (94-97) % Potassium (3.5-5.1) mmol/L Chloride 108 H (98-107) mmol/L Carbon Dioxide 20 L (22-30) mmol/L BUN 45 H (9-20) mg/dL Creatinine 2.00 H (0.66-1.25) mg/dL Glucose 168 H (74-99) mg/dL POC Glucose (mg/dL) 171 H (75-99) mg/dL Hemoglobin A1c (4.0-6.0) % Calcium 8.1 L (8.4-10.2) mg/dL Phosphorus 5.2 H (2.5-4.5) mg/dL 10/13/17 10/13/17 10/13/17 Range/Units 04:11 05:10 06:11 WBC (3.8-10.6) k/uL RBC (4.30-5.90) m/uL Hgb (13.0-17.5) gm/dL Hct (39.0-53.0) % Neutrophils # (1.3-7.7) k/uL Lymphocytes # (1.0-4.8) k/uL ABG pH (7.35-7.45) ABG pCO2 (35-45) mmHg ABG pO2 (83-108) mmHg ABG Total CO2 (19-24) mmol/L ABG O2 Saturation (94-97) % Potassium (3.5-5.1) mmol/L Chloride (98-107) mmol/L Carbon Dioxide (22-30) mmol/L BUN (9-20) mg/dL Creatinine (0.66-1.25) mg/dL Glucose (74-99) mg/dL POC Glucose (mg/dL) 175 H 163 H 178 H (75-99) mg/dL Hemoglobin A1c (4.0-6.0) % Calcium (8.4-10.2) mg/dL Phosphorus (2.5-4.5) mg/dL 10/13/17 10/13/17 10/13/17 Range/Units 07:11 08:13 09:01 WBC (3.8-10.6) k/uL RBC (4.30-5.90) m/uL Hgb (13.0-17.5) gm/dL Hct (39.0-53.0) % Neutrophils # (1.3-7.7) k/uL Lymphocytes # (1.0-4.8) k/uL ABG pH (7.35-7.45) ABG pCO2 (35-45) mmHg ABG pO2 (83-108) mmHg ABG Total CO2 (19-24) mmol/L ABG O2 Saturation (94-97) % Potassium (3.5-5.1) mmol/L Chloride (98-107) mmol/L Carbon Dioxide (22-30) mmol/L BUN (9-20) mg/dL Creatinine (0.66-1.25) mg/dL Glucose (74-99) mg/dL POC Glucose (mg/dL) 183 H 196 H 201 H (75-99) mg/dL Hemoglobin A1c (4.0-6.0) % Calcium (8.4-10.2) mg/dL Phosphorus (2.5-4.5) mg/dL 10/13/17 10/13/17 10/13/17 Range/Units 09:57 10:53 12:01 WBC (3.8-10.6) k/uL RBC (4.30-5.90) m/uL Hgb (13.0-17.5) gm/dL Hct (39.0-53.0) % Neutrophils # (1.3-7.7) k/uL Lymphocytes # (1.0-4.8) k/uL ABG pH (7.35-7.45) ABG pCO2 (35-45) mmHg ABG pO2 (83-108) mmHg ABG Total CO2 (19-24) mmol/L ABG O2 Saturation (94-97) % Potassium (3.5-5.1) mmol/L Chloride (98-107) mmol/L Carbon Dioxide (22-30) mmol/L BUN (9-20) mg/dL Creatinine (0.66-1.25) mg/dL Glucose (74-99) mg/dL POC Glucose (mg/dL) 202 H 201 H 191 H (75-99) mg/dL Hemoglobin A1c (4.0-6.0) % Calcium (8.4-10.2) mg/dL Phosphorus (2.5-4.5) mg/dL 10/13/17 Range/Units 12:59 WBC (3.8-10.6) k/uL RBC (4.30-5.90) m/uL Hgb (13.0-17.5) gm/dL Hct (39.0-53.0) % Neutrophils # (1.3-7.7) k/uL Lymphocytes # (1.0-4.8) k/uL ABG pH (7.35-7.45) ABG pCO2 (35-45) mmHg ABG pO2 (83-108) mmHg ABG Total CO2 (19-24) mmol/L ABG O2 Saturation (94-97) % Potassium (3.5-5.1) mmol/L Chloride (98-107) mmol/L Carbon Dioxide (22-30) mmol/L BUN (9-20) mg/dL Creatinine (0.66-1.25) mg/dL Glucose (74-99) mg/dL POC Glucose (mg/dL) 235 H (75-99) mg/dL Hemoglobin A1c (4.0-6.0) % Calcium (8.4-10.2) mg/dL Phosphorus (2.5-4.5) mg/dL Microbiology - Last 24 Hours (Table) 10/12/17 09:27 Gram Stain - Preliminary Synovial Fluid Body Fluid Culture - Preliminary Presumptive Staph aureus 10/12/17 19:48 Gram Stain - Preliminary Ankle - Left Wound Culture - Preliminary 10/12/17 19:48 Gram Stain - Preliminary Ankle - Left Wound Culture - Preliminary 10/12/17 19:48 Anaerobic Culture - Preliminary Ankle - Left 10/12/17 19:48 Anaerobic Culture - Preliminary Ankle - Left 10/11/17 21:15 Blood Culture Gram Stain - Preliminary Blood Blood Culture - Preliminary Presumptive Staph aureus 10/11/17 21:15 Blood Culture - Final Blood Laboratory Results WBC 20.8 k/uL (3.8-10.6) H 10/13/17 03:35 RBC 3.90 m/uL (4.30-5.90) L 10/13/17 03:35 Hgb 11.1 gm/dL (13.0-17.5) L 10/13/17 03:35 Hct 35.5 % (39.0-53.0) L 10/13/17 03:35 MCV 91.0 fL (80.0-100.0) 10/13/17 03:35 MCH 28.5 pg (25.0-35.0) 10/13/17 03:35 MCHC 31.3 g/dL (31.0-37.0) 10/13/17 03:35 RDW 13.7 % (11.5-15.5) 10/13/17 03:35 Plt Count 282 k/uL (150-450) 10/13/17 03:35 Neutrophils % 94 % 10/13/17 03:35 Lymphocytes % 2 % 10/13/17 03:35 Monocytes % 4 % 10/13/17 03:35 Eosinophils % 0 % 10/13/17 03:35 Basophils % 0 % 10/13/17 03:35 Neutrophils # 19.5 k/uL (1.3-7.7) H 10/13/17 03:35 Lymphocytes # 0.4 k/uL (1.0-4.8) L 10/13/17 03:35 Monocytes # 0.7 k/uL (0-1.0) 10/13/17 03:35 Eosinophils # 0.0 k/uL (0-0.7) 10/13/17 03:35 Basophils # 0.0 k/uL (0-0.2) 10/13/17 03:35 Hypochromasia Slight 10/13/17 03:35 ESR 25 mm/hr (0-15) H 10/12/17 07:29 Sample Site [place] 10/12/17 17:48 ABG pH 7.31 (7.35-7.45) L 10/12/17 17:48 ABG pCO2 47 mmHg (35-45) H 10/12/17 17:48 ABG pO2 52 mmHg (83-108) L 10/12/17 17:48 ABG HCO3 24 mmol/L (21-25) 10/12/17 17:48 ABG Total CO2 25 mmol/L (19-24) H 10/12/17 17:48 ABG O2 Saturation 86.2 % (94-97) L 10/12/17 17:48 ABG Base Excess -2.7 mmol/L 10/12/17 17:48 Cr Test no 10/12/17 17:48 ABG Lactic Acid 1.0 mmol/L (0.5-1.6) 10/12/17 18:06 FiO2 44 % 10/12/17 17:48 Sodium 143 mmol/L (137-145) 10/13/17 03:35 Potassium 5.0 mmol/L (3.5-5.1) 10/13/17 03:35 Chloride 108 mmol/L (98-107) H 10/13/17 03:35 Carbon Dioxide 20 mmol/L (22-30) L 10/13/17 03:35 Anion Gap 15 mmol/L 10/13/17 03:35 BUN 45 mg/dL (9-20) H 10/13/17 03:35 Creatinine 2.00 mg/dL (0.66-1.25) H 10/13/17 03:35 Est GFR (CKD-EPI)AfAm 43 (>60 ml/min/1.73 sqM) 10/13/17 03:35 Est GFR (CKD-EPI)NonAf 37 (>60 ml/min/1.73 sqM) 10/13/17 03:35 Glucose 168 mg/dL (74-99) H 10/13/17 03:35 POC Glucose (mg/dL) 235 mg/dL (75-99) H 10/13/17 12:59 POC Glu Wardrobe Attendant ID Yolanda Alonso 10/13/17 12:[address] Glu mg/dL 214 10/12/17 07:29 Hemoglobin A1c 9.1 % (4.0-6.0) H 10/12/17 07:29 Plasma Lactic Acid Ron 1.5 mmol/L (0.7-2.0) 10/11/17 21:10 Uric Acid 5.6 mg/dL (3.5-8.5) 10/11/17 21:10 Calcium 8.1 mg/dL (8.4-10.2) L 10/13/17 03:35 Phosphorus 5.2 mg/dL (2.5-4.5) H 10/13/17 03:35 Magnesium 2.1 mg/dL (1.6-2.3) 10/13/17 03:35 C-Reactive Protein 45.1 mg/L (<10.0) H 10/11/17 21:10 Microbiology 10/12/17 09:27 Synovial Fluid Gram Stain - Preliminary 10/12/17 09:27 Synovial Fluid Body Fluid Culture - Preliminary Presumptive Staph aureus 10/12/17 19:48 Ankle - Left Gram Stain - Preliminary 10/12/17 19:48 Ankle - Left Wound Culture - Preliminary 10/12/17 19:48 Ankle - Left Gram Stain - Preliminary 10/12/17 19:48 Ankle - Left Wound Culture - Preliminary 10/12/17 19:48 Ankle - Left Anaerobic Culture - Preliminary 10/12/17 19:48 Ankle - Left Anaerobic Culture - Preliminary 10/11/17 21:15 Blood Blood Culture Gram Stain - Preliminary 10/11/17 21:15 Blood Blood Culture - Preliminary Presumptive Staph aureus 10/11/17 21:15 Blood Blood Culture - Final Assessment and Plan (1) Septic arthritis of left ankle Narrative/Plan: 52-year-old male presents the emergency center with inability to bear weight to his left ankle. The patient has had some new orthotic boot manufactured in a developed a small ulcer on the dorsum of the left foot. This apparently was from a grommet from an orthotic. This was completely healed and was evaluated but was still having ongoing difficulties with ankle area. Is actively following up with orthopedic foot and ankle. The patient does have a boot that was designed that he was not wearing when he came to the office and understands it is important that he wears this when he is at work to protect his ankle from the Charcot changes. Patient however now has high-grade fever chills leukocytosis and laboratories: Positive blood culture with gram-positive cocci. The patient did have aspiration per orthopedic ankle grossly purulent material was found. Originally the plan was to go to the operating him in the morning but as the patient felt worsening sepsis he is no scheduled operating room this afternoon for the incision and drainage of this abscess. Deep cultures and pathology will also be sent. Antibiotic therapy is altered from vancomycin to daptomycin. In hopes to have a more rapid bacteriocidal activity given his rapidly declining status. Enhance glucose control be important part of his healing. Leukocytosis record related to his current sepsis. There is evidence of possible culture and he will require follow blood cultures in the morning. He was monitored for any persistence of his bacteremia. There will be a coordinated effort between orthopedic ankle and infectious disease as to the care at discharge. 10/13/2017 reveals the patient still needs intensive care unit after surgery with ongoing sepsis. Continues to have fever and leukocytosis and difficulties with acute lung injury and now elevated creatinine to 2.0. Patient continues to be resuscitated and has had some improvement but minimal at this point in time. He will continue with maneuvers to improve his fever maintain his hydration and antibiotic therapy continues with daptomycin for both staph aureus and MRSA, blood culture and aspirate from the ankle are still showing staph aureus final susceptibility is pending. Patient aware that if he improves he will be receiving a jg completed a long course of IV antibiotic therapy for this extensive infection. Leukocytosis directly related to the sepsis Current Visit: Yes Status: Acute Code(s): M00.9 - PYOGENIC ARTHRITIS, UNSPECIFIED SNOMED Code(s): 40861596 (2) Sepsis Current Visit: Yes Status: Acute Code(s): A41.9 - SEPSIS, UNSPECIFIED ORGANISM SNOMED Code(s): 24510863 (3) Poorly controlled type 2 diabetes mellitus with complication Current Visit: Yes Status: Acute Code(s): E11.8 - TYPE 2 DIABETES MELLITUS WITH UNSPECIFIED COMPLICATIONS; E11.65 - TYPE 2 DIABETES MELLITUS WITH HYPERGLYCEMIA SNOMED Code(s): 18979438
[2017-10-13 14:03] LABS: Glucose,Whole Blood 207 mg/dL (75-99)
[2017-10-13 15:02] LABS: Glucose,Whole Blood 207 mg/dL (75-99)
[2017-10-13 15:55] LABS: Glucose,Whole Blood 226 mg/dL (75-99)
[2017-10-13 17:11] LABS: Glucose,Whole Blood 204 mg/dL (75-99)
[2017-10-13] MEDS: DAPTOmycin 500 MG in SODIUM CHLORIDE 0.9% 50 ML IV SCH (18:03)
[2017-10-13 18:04] LABS: Glucose,Whole Blood 189 mg/dL (75-99)
[2017-10-13 19:09] LABS: Glucose,Whole Blood 176 mg/dL (75-99)
[2017-10-13 20:14] LABS: Glucose,Whole Blood 172 mg/dL (75-99)
[2017-10-13] MEDS: ATORVASTATIN 40 MG TAB PO SCH (20:23)
[2017-10-13] MEDS: INSULIN REGULAR 100 UNIT in SODIUM CHLORIDE 0.9% 100 ML IV SCH (20:25)
[2017-10-13 20:33] LABS: ALT 58 U/L (21-72); AST 96 U/L (17-59)
[2017-10-13 21:11] LABS: Glucose,Whole Blood 149 mg/dL (75-99)
--- NOTE | 2017-10-13 21:25 | PN ---
PROGRESS NOTE DATE OF SERVICE: October 13, 2017. PRESENTING COMPLAINT: Septic arthritis. INTERVAL HISTORY: This is a patient who was admitted with septic arthritis of the left ankle, taken to the OR last night. Pus was drained. The patient also had acute respiratory failure and then transferred the patient to the ICU. The patient has been on broad-spectrum antibiotics. The patient is requiring a BiPAP last night. Oxygen requirement has come down. The patient was somewhat delirious though doing better this morning. Patient also has got a wound VAC on the left ankle. REVIEW OF SYSTEMS: Was attempted for constitutional, cardiovascular, GI, pulmonary and relevant findings as above. CURRENT MEDICATIONS: Reviewed that include IV daptomycin, insulin drip, IV Zosyn. PHYSICAL EXAMINATION: Temperature 102.3, pulse 100, respiration 27, blood pressure 135/60, pulse ox 94% on 6 L. GENERAL APPEARANCE: Lying in bed, rather lethargic. Eyes: Pupils equal. Conjunctivae normal. HEENT external appearance of nose and ears normal. Oral cavity dry. Neck: JVD unable to assess. Mass not palpable. Respiratory effort increased. Lungs decreased breath sounds. Cardiovascular: 1st and 2nd sounds normal. No edema. Abdomen distended, soft. Liver and spleen not palpable. Left leg in a wrapped wound VAC. Psychiatry: Patient lethargic. Following some simple commands. INVESTIGATIONS: White count 20.8, hemoglobin 11.1, BUN 45, creatinine 2.0, the patient's blood gases yesterday evening showed a pH of 7.316, PO2 52, FiO2 44%. The patient's blood cultures coming back showing Staph aureus, and a chest x-ray suggestive of vascular congestion. ASSESSMENT: 1. Septic arthritis of the left ankle, present on admission causing severe sepsis, status post I and D with cultures growing Staph aureus. 2. Acute delirium from sepsis. 3. Prior history of right foot osteomyelitis with ray amputation in 2016. 4. Gastroesophageal reflux disease. 5. Essential hypertension. 6. Diabetes mellitus type 2, uncontrolled with hypoglycemia, currently on insulin drip. 7. Hypothyroid. 8. Peripheral neuropathy from diabetes. 9. Hiatal hernia. 10.Hyperlipidemia. 11.Morbid obesity BMI 42.9. 12.Early ARDS/mild to moderate due to underlying sepsis. 13.Acute hypoxic respiratory failure requiring oxygen. 14.Acute renal failure probably acute tubular necrosis from sepsis. 15.Left ankle Charcot joint. PLAN: Continue current medication and treatment plan. Patient vancomycin will be discontinued and substituted with daptomycin. The patient is on broad-spectrum antibiotics. Oxygen will be supplemented. The patient being followed by Dr. Mi, Dr. Daniel and Dr. Mcneil from Orthopedics. Prognosis is guarded. Patient remains critically ill. Keep a close eye on patient's renal function. Follow. MMODL / IJN: [id number] /
[2017-10-13 21:48] LABS: Glucose,Whole Blood 152 mg/dL (75-99)
[2017-10-13 23:00] LABS: Glucose,Whole Blood 137 mg/dL (75-99)
[2017-10-13 23:54] LABS: Glucose,Whole Blood 155 mg/dL (75-99)
[2017-10-14] MEDS: HEPARIN SODIUM,PORCINE 5,000 UNIT/ML 1 ML VIAL SQ SCH ×3 (00:01→17:24)
[2017-10-14] MEDS: SODIUM CHLORIDE 0.9% 1,000 ML IV SCH ×4 (00:04→17:37)
[2017-10-14 01:30] LABS: Glucose,Whole Blood 131 mg/dL (75-99)
[2017-10-14] MEDS: ONDANSETRON 4 MG/2 ML VIAL IVP PRN ×2 (02:11→08:23)
[2017-10-14 02:25] LABS: Glucose,Whole Blood 154 mg/dL (75-99)
[2017-10-14 03:55] LABS: Glucose,Whole Blood 149 mg/dL (75-99)
[2017-10-14 04:15] LABS: HCT 34.2 % (39.0-53.0); HGB 10.7 gm/dL (13.0-17.5); Hypochromasia Moderate; MCH 28.4 pg (25.0-35.0); MCHC 31.1 g/dL (31.0-37.0); MCV 91.4 fL (80.0-100.0); Mean Platelet Volume 8.4; Platelet Count 250 k/uL (150-450); RBC 3.75 m/uL (4.30-5.90); RDW 13.8 % (11.5-15.5); WBC 17.8 k/uL (3.8-10.6)
[2017-10-14 04:34] LABS: Calcium 8.4 mg/dL (8.4-10.2); Magnesium 2.7 mg/dL (1.6-2.3); Phosphorus 4.5 mg/dL (2.5-4.5); Potassium 4.7 mmol/L (3.5-5.1)
[2017-10-14 05:04] LABS: Glucose,Whole Blood 129 mg/dL (75-99)
[2017-10-14] MEDS: PIPERACILLIN-TAZOBACTAM 3.375 GM in DEXTROSE/WATER 1 50ML.BAG IVPB SCH ×2 (05:15→13:03)
[2017-10-14 06:00] LABS: Glucose,Whole Blood 140 mg/dL (75-99)
[2017-10-14] MEDS: LEVOTHYROXINE 75 MCG TAB PO SCH (06:04)
--- NOTE | 2017-10-14 07:05 | XR ---
EXAMINATION TYPE: XR chest 1V portable DATE OF EXAM: 10/14/2017 COMPARISON: 10/13/2017 HISTORY: Hypoxemia. TECHNIQUE: Single frontal view of the chest is obtained. FINDINGS: Left-sided central venous catheter is unchanged in position. There is a trace right pleura l effusion blunting the costophrenic angle and bibasilar airspace disease, similar to the prior. Mild pulmonary vascular congestion is also again identified. Heart size is upper limits of normal. Osseou s structures are intact. IMPRESSION: Similar-appearing mild pulmonary vascular congestion and bibasilar airspace disease whic h trace right pleural effusion. Airspace disease may represent atelectasis, confluent pulmonary edema or pneumonia.
[2017-10-14 08:11] LABS: Glucose,Whole Blood 147 mg/dL (75-99)
[2017-10-14] MEDS: GABAPENTIN 300 MG CAP PO SCH (08:11)
[2017-10-14] MEDS: PANTOPRAZOLE 40 MG/10 ML VIAL IV SCH (08:11)
[2017-10-14] MEDS: METOPROLOL TARTRATE 25 MG TAB PO SCH ×3 (08:11→20:10)
[2017-10-14] MEDS: NON-FORMULARY DRUG (Empagliflozin [Jardiance] 25 MG) PO SCH (08:12)
[2017-10-14] MEDS: MORPHINE ORAL SOLN 10 MG/5 ML CUP PO PRN ×2 (08:23→17:50)
[2017-10-14 10:02] LABS: Glucose,Whole Blood 150 mg/dL (75-99)
[2017-10-14 10:02] LABS: Glucose,Whole Blood 185 mg/dL (75-99)
[2017-10-14 11:04] LABS: Glucose,Whole Blood 167 mg/dL (75-99)
[2017-10-14] MEDS ORDERED: FUROSEMIDE 10 MG/ML 4 ML VIAL IV STA (11:19)
[2017-10-14] MEDS ORDERED: FUROSEMIDE 10 MG/ML 4 ML VIAL ONE (11:23)
[2017-10-14 12:07] LABS: Glucose,Whole Blood 166 mg/dL (75-99)
--- NOTE | 2017-10-14 12:17 | CDI ---
Last Revision, May 2017 Documentation Clarification Form Date: 10/14/2017 12:14:00 PM Revised 10/21/2017 From: Nellie Perkins, LASHA, CCDS Admit Date: 10/11/2017 10:44:00 PM Patient Name: Addison Clark Visit Number: [id number] Discharge Date: ATTENTION: The Clinical Documentation Specialists (CDI) and [facility] Coding Staff appreciate your assistance in clarifying documentation. Please respond to the clarification below the line at the bottom and electronically sign. The CDI & [facility] Coding staff will review the response and follow-up if needed. Please note: Queries are made part of the Legal Health Record. If you have any questions, please contact the author of this message via ITS. Dr. Dre Mcneil: Per your operative note, debridements were performed on 10/12 & 10/16 for left ankle septic arthritis, likely osteomyelitis left talonavicular joint. History/Risk Factors: Osteomyelitis, MRSA, DM II. Clinical Indicators: Presented with redness, swelling & pain to left ankle. Treatment: IV abx, IV fluids & IV fl bolus, requiring transfer to ICU for Septic Shock. To OR: I&D lt ankle joint with dissection through subcutaneous tissue, deep cultures & application of wound VAC left ankle. 2nd debridement done with removal of bone. Per the OR note: Dissection was carried down through subcutaneous tissue, joint capsule was opened, deep cultures were taken. In order to capture the severity of condition and code the appropriate procedure ; could you please document the following: Excisional debridement (the removal of necrotic, devitalized tissue or slough by means of cutting away of tissue) Non-excisional debridement (the removal of necrotic, devitalized tissue or slough by means of flushing, brushing, or washing. (Irrigation) Other; please specify Unable to determine (no explanation for clinical findings) Please continue to document in your progress notes and discharge summary in order to capture severity of illness and risk of mortality. Include clinical findings that support your diagnosis. MTDD
--- NOTE | 2017-10-14 12:18 | P.PN ---
Subjective Progress Note Date: 10/14/17 This is a 52 year-old male post irrigation and debridement left ankle joint with wound VAC application. This is post-op day 2. Patient appears comfortable as he is resting with BiPAP in place. His pain appears controlled at this time. The patient states that he is feeling better this morning. There are no new complaints. He is on IV Zosyn. Objective - Vital Signs Vital signs: Vital Signs Temp 98.1 F 10/14/17 08:00 Pulse 87 10/14/17 11:00 Resp 23 10/14/17 11:00 BP 113/55 10/14/17 11:00 Pulse Ox 95 10/14/17 11:00 Intake & Output 10/13/17 10/14/17 10/14/17 18:59 06:59 18:59 Intake Total 0227.228 1403.934 728.156 Output Total 1300 1795 1130 Balance 363.593 -299.066 -401.844 Weight 162.8 kg Intake: IV 1590.0 1440 722.5 DAPTOmycin 500 mg In 50 Sodium Chloride 0.9% 50 ml @ 100 mls/hr IV Q24HR@ 1800 [facility] Rx#:[id number] Piperacillin-Tazobactam 3 100.0 .375 gm In Dextrose/Water 1 50ml.bag @ 12.5 mls/hr IVPB Q8H [facility] Rx#: [id number] Piperacillin-Tazobactam 3 52.5 .375 gm In Dextrose/Water 1 50ml.bag @ 12.5 mls/hr IVPB Q8H [facility] Rx#: [id number] Sodium Chloride 0.9% 1, 1440 1440 670 000 ml @ 70 mls/hr IV . [id number] [facility] Rx#:[id number] Intake, IV Titration 73.593 55.934 5.656 Amount Insulin Regular 100 unit 73.593 55.934 5.656 In Sodium Chloride 0.9% 100 ml @ Per Protocol IV .Q0M [facility] Rx#:[id number] Output: Drainage 400 Left Ankle 400 Urine 1300 1395 1130 Other: Voiding Method Indwelling Catheter Indwelling Catheter Indwelling Catheter ABP, PAP, CO, CI - Last Documented Arterial Blood Pressure 146/78 - Exam The patient does not appear in acute distress. Alert and orientated x3. Wound vac dressing is clean dry and intact. Calf is soft and nontender. He is able to wiggle his toes without difficulty. Sensation and circulatory status is intact. - Constitutional General appearance: Present: no acute distress - Psychiatric Psychiatric: Present: A&O x's 3, appropriate affect, intact judgment & insight - Labs CBC & Chem 7: 10/14/17 04:00 10/14/17 04:00 Labs: Abnormal Lab Results - Last 24 Hours (Table) 10/12/17 10/13/17 10/13/17 Range/Units 07:29 12:59 14:01 WBC (3.8-10.6) k/uL RBC (4.30-5.90) m/uL Hgb (13.0-17.5) gm/dL Hct (39.0-53.0) % Chloride (98-107) mmol/L BUN (9-20) mg/dL Creatinine (0.66-1.25) mg/dL Glucose (74-99) mg/dL POC Glucose (mg/dL) 235 H 207 H (75-99) mg/dL Hemoglobin A1c 9.1 H (4.0-6.0) % Magnesium (1.6-2.3) mg/dL AST (17-59) U/L 10/13/17 10/13/17 10/13/17 Range/Units 15:00 15:54 17:09 WBC (3.8-10.6) k/uL RBC (4.30-5.90) m/uL Hgb (13.0-17.5) gm/dL Hct (39.0-53.0) % Chloride (98-107) mmol/L BUN (9-20) mg/dL Creatinine (0.66-1.25) mg/dL Glucose (74-99) mg/dL POC Glucose (mg/dL) 207 H 226 H 204 H (75-99) mg/dL Hemoglobin A1c (4.0-6.0) % Magnesium (1.6-2.3) mg/dL AST (17-59) U/L 10/13/17 10/13/17 10/13/17 Range/Units 18:02 19:08 19:55 WBC (3.8-10.6) k/uL RBC (4.30-5.90) m/uL Hgb (13.0-17.5) gm/dL Hct (39.0-53.0) % Chloride (98-107) mmol/L BUN (9-20) mg/dL Creatinine (0.66-1.25) mg/dL Glucose (74-99) mg/dL POC Glucose (mg/dL) 189 H 176 H (75-99) mg/dL Hemoglobin A1c (4.0-6.0) % Magnesium (1.6-2.3) mg/dL AST 96 H (17-59) U/L 10/13/17 10/13/17 10/13/17 Range/Units 20:13 21:09 21:46 WBC (3.8-10.6) k/uL RBC (4.30-5.90) m/uL Hgb (13.0-17.5) gm/dL Hct (39.0-53.0) % Chloride (98-107) mmol/L BUN (9-20) mg/dL Creatinine (0.66-1.25) mg/dL Glucose (74-99) mg/dL POC Glucose (mg/dL) 172 H 149 H 152 H (75-99) mg/dL Hemoglobin A1c (4.0-6.0) % Magnesium (1.6-2.3) mg/dL AST (17-59) U/L 10/13/17 10/13/17 10/14/17 Range/Units 22:58 23:52 01:28 WBC (3.8-10.6) k/uL RBC (4.30-5.90) m/uL Hgb (13.0-17.5) gm/dL Hct (39.0-53.0) % Chloride (98-107) mmol/L BUN (9-20) mg/dL Creatinine (0.66-1.25) mg/dL Glucose (74-99) mg/dL POC Glucose (mg/dL) 137 H 155 H 131 H (75-99) mg/dL Hemoglobin A1c (4.0-6.0) % Magnesium (1.6-2.3) mg/dL AST (17-59) U/L 10/14/17 10/14/17 10/14/17 Range/Units 02:24 03:52 04:00 WBC (3.8-10.6) k/uL RBC (4.30-5.90) m/uL Hgb (13.0-17.5) gm/dL Hct (39.0-53.0) % Chloride 110 H (98-107) mmol/L BUN 59 H (9-20) mg/dL Creatinine 2.10 H (0.66-1.25) mg/dL Glucose 145 H (74-99) mg/dL POC Glucose (mg/dL) 154 H 149 H (75-99) mg/dL Hemoglobin A1c (4.0-6.0) % Magnesium 2.7 H (1.6-2.3) mg/dL AST (17-59) U/L 10/14/17 10/14/17 10/14/17 Range/Units 04:00 05:03 05:58 WBC 17.8 H (3.8-10.6) k/uL RBC 3.75 L (4.30-5.90) m/uL Hgb 10.7 L (13.0-17.5) gm/dL Hct 34.2 L (39.0-53.0) % Chloride (98-107) mmol/L BUN (9-20) mg/dL Creatinine (0.66-1.25) mg/dL Glucose (74-99) mg/dL POC Glucose (mg/dL) 129 H 140 H (75-99) mg/dL Hemoglobin A1c (4.0-6.0) % Magnesium (1.6-2.3) mg/dL AST (17-59) U/L 10/14/17 10/14/17 10/14/17 Range/Units 08:09 09:04 10:01 WBC (3.8-10.6) k/uL RBC (4.30-5.90) m/uL Hgb (13.0-17.5) gm/dL Hct (39.0-53.0) % Chloride (98-107) mmol/L BUN (9-20) mg/dL Creatinine (0.66-1.25) mg/dL Glucose (74-99) mg/dL POC Glucose (mg/dL) 147 H 185 H 150 H (75-99) mg/dL Hemoglobin A1c (4.0-6.0) % Magnesium (1.6-2.3) mg/dL AST (17-59) U/L 10/14/17 10/14/17 Range/Units 11:02 12:06 WBC (3.8-10.6) k/uL RBC (4.30-5.90) m/uL Hgb (13.0-17.5) gm/dL Hct (39.0-53.0) % Chloride (98-107) mmol/L BUN (9-20) mg/dL Creatinine (0.66-1.25) mg/dL Glucose (74-99) mg/dL POC Glucose (mg/dL) 167 H 166 H (75-99) mg/dL Hemoglobin A1c (4.0-6.0) % Magnesium (1.6-2.3) mg/dL AST (17-59) U/L Microbiology - Last 24 Hours (Table) 10/13/17 07:25 Blood Culture Gram Stain - Preliminary Blood 10/13/17 08:45 Blood Culture Gram Stain - Preliminary Blood 10/13/17 07:25 Blood Culture - Final Blood 10/13/17 08:45 Blood Culture - Final Blood 10/11/17 21:15 Blood Culture Gram Stain - Final Blood Blood Culture - Final Staphylococcus aureus 10/12/17 19:48 Gram Stain - Preliminary Ankle - Left Wound Culture - Preliminary Presumptive Staph aureus 10/12/17 19:48 Gram Stain - Preliminary Ankle - Left Wound Culture - Preliminary Presumptive Staph aureus 10/12/17 09:27 Gram Stain - Preliminary Synovial Fluid Body Fluid Culture - Preliminary Presumptive Staph aureus Assessment and Plan (1) Sepsis Narrative/Plan: His temp has stabilized along with his vital signs. His pain is controlled. Wound vac is in place and appears stable/improving with wound. IV antibiotics per ID and medical management per supervisor tunnel heading. I will review with Dr. Mcneil. We will continue to monitor closely and make further recommendations as appropriate. Current Visit: Yes Status: Acute Priority: Medium Code(s): A41.9 - SEPSIS , UNSPECIFIED ORGANISM SNOMED Code(s): 47809959 (2) Cellulitis Current Visit: No Status: Acute Priority: Medium Code(s): L03.90 - CELLULITIS, UNSPECIFIED SNOMED Code(s): 203716081 (3) Diabetic foot ulcer associated with type 2 diabetes mellitus Current Visit: No Status: Acute Code(s): E11.621 - TYPE 2 DIABETES MELLITUS WITH FOOT ULCER SNOMED Code(s): 848967824 Time with Patient: Less than 30
--- NOTE | 2017-10-14 12:28 | CDI ---
Last Revision, May 2017 Documentation Clarification Form Date: 10/14/2017 12:03:00 PM From: Nellie Perkins, LASHA, CCDS Admit Date: 10/11/2017 10:44:00 PM Patient Name: Addison Clark Visit Number: [id number] Discharge Date: ATTENTION: The Clinical Documentation Specialists (CDI) and [facility] Coding Staff appreciate your assistance in clarifying documentation. Please respond to the clarification below the line at the bottom and electronically sign. The CDI & [facility] Coding staff will review the response and follow-up if needed. Please note: Queries are made part of the Legal Health Record. If you have any questions, please contact the author of this message via ITS. Dr. Edu Schumacher: Per your documentation in the History & Physical and the 10/13 progress note: "Acute delirium from sepsis." History/Risk factors: Osteomyelitis, MRSA, DM II, Hypertension. Clinical Indicators: Presented with pain, redness & swelling to left ankle. Became progressively more septic, transferred to ICU, underwent emergent I&D of left ankle. Diagnosed with septic shock, lethargic. VS: T 98.0 - 101.5; P 107, R 19-22; BP 125/75, 112/59; PO 94 RA - 84 RA Labs: WBC 20.3-23.0, Neut 18.9 Treatment: IV antibiotics, Insulin sl scale, IV toradol, IV Ms, IV fl boluses, IV fluids. Consults: ID, Pulmonary/Critical Care, Orthopedic In your professional opinion, can you please clarify the specific type of encephalopathy, if known? Anoxic Encephalopathy Metabolic Encephalopathy Septic Encephalopathy Toxic Encephalopathy Traumatic Encephalopathy Other, please specify Unable to determine Please continue to document in your progress notes and discharge summary in order to capture severity of illness and risk of mortality. Include clinical findings that support your diagnosis. MTDD
--- NOTE | 2017-10-14 12:31 | P.PN ---
Subjective Progress Note Date: 10/14/17 Principal diagnosis: Acute sepsis secondary to septic arthritis of the left ankle and MSSA bacteremia. This is a 52-year-old male patient, diabetic, known history of severe peripheral neuropathy, charcoal joints and previous amputation of the right foot , partial, presenting again today to the hospital because of pain and swelling following an ankle sprain on the left. The patient had been having progressive increase in swelling and pain in the left lower extremity mainly in the ankle area and there is increase in warmth. He came into the emergency department. He was seen by orthopedic surgery. The fluid joints was aspirated and the results are still pending for now. Meanwhile he became progressively more septic and he got transferred to the intensive care unit because of increased tachycardia, tachypnea, right gutters and hypotension and diminished level of consciousness. Apparently the patient was hypoxic with a pulse ox of 80% on the floor. Upon arrival to the ICU he was placed on high flow oxygen initially at 5 L/m nasal cannula which brought his saturation above 90%. He had a temperature 104.2. His heart rate was 130s sinus. He was quite lethargic and dry. He was started on aggressive fluid resuscitation 2 L of bolus of being given right now. Blood cultures positive and I discussed the case with infectious disease and the patient will be switched to daptomycin. The patient will also go to the operating room for immediate I&D. The patient has elevated blood sugar and he will be started on insulin drip for blood sugar control. Chest x-ray post-line insertion showed some smaller lung volumes. No pneumothorax. Some early atelectatic changes in lung bases bilaterally. An art line catheter was also inserted. Subsequently blood gases showed a pH of 7.3 with a pCO2 of 47 and pO2 of 52 and the patient was placed on 100% nonrebreather facemask. On 10/11/2017, the patient is being seen in follow-up in the intensive care unit. The patient came in with a septic arthritis and sepsis to the intensive care unit. The patient was lethargic and septic looking in addition to fever tachycardia leukocytosis. He was also in acute hypoxic respiratory failure. He made resuscitation was done. Following that the patient got transferred to the operating room where the patient underwent irrigation and debridement of the left ankle joint and there was application of a wound VAC to the left ankle. The patient is currently back to the intensive care unit. This morning is awake and alert. He is following commands and answering questions. He is on high flow oxygen at 12 L/m nasal cannula and this will be gradually weaned down as the patient's oxidation is improved. Denies having any respiratory distress. He is less tachycardic compared to yesterday. He did not require any pressors. The blood cultures positive for staph aureus. The patient is currently on daptomycin. He is also on IV Zosyn. A wound VAC is applied to the left foot. His blood sugars under better control with an insulin drip. He is morbidly obese. Denies having any complaints. No chest pain. No shortness of breath. No altered mentation. No other complaints otherwise for now. His white cell count remains elevated at 20.8. He did suffer an acute kidney injury in the creatinine is up to 2. The patient continues to be an IV fluids and is producing adequate amount of urine output. The neck fluid balance is + 3.5 L over the past 24 hours. Patient was reevaluated today on 10/14/2017, remains in the ICU, hemodynamically stable, chest x-ray is showing some worsening, and he seems to be demonstrating a bit more shortness of breath. Urine output has been marginal. And his chest x-ray is showing interstitial edema could very well be noncardiogenic in nature. Hence I have recommended starting the patient on BiPAP with IPAP of 12 EPAP of 4 and I recommended a dose of Lasix 40 mg IV push. CBC showed leukocytosis but improving compared to admission and his basic metabolic profile is normal. BUN is 59 and creatinine is 2.10. Apparently his renal functioning is worsening even prior to giving him any diuretics. Patient remains on daptomycin and Zosyn as per infectious disease on the case. Objective - Vital Signs Vital signs: Vital Signs Temp 98.7 F 10/14/17 12:00 Pulse 82 10/14/17 12:00 Resp 13 10/14/17 12:00 BP 93/48 10/14/17 12:00 Pulse Ox 98 10/14/17 12:00 Intake & Output 10/13/17 10/14/17 10/14/17 18:59 06:59 18:59 Intake Total 6233.057 7796.934 728.156 Output Total 1300 1795 1130 Balance 363.593 -299.066 -401.844 Weight 162.8 kg Intake: IV 1590.0 1440 722.5 DAPTOmycin 500 mg In 50 Sodium Chloride 0.9% 50 ml @ 100 mls/hr IV Q24HR@ 1800 [facility] Rx#:[id number] Piperacillin-Tazobactam 3 100.0 .375 gm In Dextrose/Water 1 50ml.bag @ 12.5 mls/hr IVPB Q8H [facility] Rx#: [id number] Piperacillin-Tazobactam 3 52.5 .375 gm In Dextrose/Water 1 50ml.bag @ 12.5 mls/hr IVPB Q8H [facility] Rx#: [id number] Sodium Chloride 0.9% 1, 1440 1440 670 000 ml @ 70 mls/hr IV . [id number] [facility] Rx#:[id number] Intake, IV Titration 73.593 55.934 5.656 Amount Insulin Regular 100 unit 73.593 55.934 5.656 In Sodium Chloride 0.9% 100 ml @ Per Protocol IV .Q0M [facility] Rx#:[id number] Output: Drainage 400 Left Ankle 400 Urine 1300 1395 1130 Other: Voiding Method Indwelling Catheter Indwelling Catheter Indwelling Catheter ABP, PAP, CO, CI - Last Documented Arterial Blood Pressure 109/59 - Exam Physical Exam: Revealed a 52-year-old white male, obese, noted to be slightly tachypneic and in mild respiratory distress. Obese, BMI of 46.9. Head: Atraumatic, normocephalic. HEENT:[Neck is supple.] [No neck masses.] [No thyromegaly.] [No JVD.] Chest: [Crackles and rhonchi noted at the bases, no wheezes, no chest wall tenderness.] Cardiac Exam: [Normal S1 and S2, no S3 gallop, no murmur.] Abdomen: [Obese, Soft, nontender, no megaly, no rebound, no guarding, normal bowel sounds.] Extremities: [Wound VAC dressing noted to be clean and dry in the left ankle joint. Evidence of bipedal edema. Definite cellulitis and erythema noted around the left ankle joint. Extending to the distal portion of the left lower extremity and to the dorsal aspect of the foot.] Neurological Exam: [No focal neurologic deficit.] Psychiatric: Normal mood affect and mental status examination. Lymphatics: No lymphadenopathy - Labs CBC & Chem 7: 10/14/17 04:00 10/14/17 04:00 Labs: Abnormal Lab Results - Last 24 Hours (Table) 10/12/17 10/13/17 10/13/17 Range/Units 07:29 12:59 14:01 WBC (3.8-10.6) k/uL RBC (4.30-5.90) m/uL Hgb (13.0-17.5) gm/dL Hct (39.0-53.0) % Chloride (98-107) mmol/L BUN (9-20) mg/dL Creatinine (0.66-1.25) mg/dL Glucose (74-99) mg/dL POC Glucose (mg/dL) 235 H 207 H (75-99) mg/dL Hemoglobin A1c 9.1 H (4.0-6.0) % Magnesium (1.6-2.3) mg/dL AST (17-59) U/L 10/13/17 10/13/17 10/13/17 Range/Units 15:00 15:54 17:09 WBC (3.8-10.6) k/uL RBC (4.30-5.90) m/uL Hgb (13.0-17.5) gm/dL Hct (39.0-53.0) % Chloride (98-107) mmol/L BUN (9-20) mg/dL Creatinine (0.66-1.25) mg/dL Glucose (74-99) mg/dL POC Glucose (mg/dL) 207 H 226 H 204 H (75-99) mg/dL Hemoglobin A1c (4.0-6.0) % Magnesium (1.6-2.3) mg/dL AST (17-59) U/L 10/13/17 10/13/17 10/13/17 Range/Units 18:02 19:08 19:55 WBC (3.8-10.6) k/uL RBC (4.30-5.90) m/uL Hgb (13.0-17.5) gm/dL Hct (39.0-53.0) % Chloride (98-107) mmol/L BUN (9-20) mg/dL Creatinine (0.66-1.25) mg/dL Glucose (74-99) mg/dL POC Glucose (mg/dL) 189 H 176 H (75-99) mg/dL Hemoglobin A1c (4.0-6.0) % Magnesium (1.6-2.3) mg/dL AST 96 H (17-59) U/L 10/13/17 10/13/17 10/13/17 Range/Units 20:13 21:09 21:46 WBC (3.8-10.6) k/uL RBC (4.30-5.90) m/uL Hgb (13.0-17.5) gm/dL Hct (39.0-53.0) % Chloride (98-107) mmol/L BUN (9-20) mg/dL Creatinine (0.66-1.25) mg/dL Glucose (74-99) mg/dL POC Glucose (mg/dL) 172 H 149 H 152 H (75-99) mg/dL Hemoglobin A1c (4.0-6.0) % Magnesium (1.6-2.3) mg/dL AST (17-59) U/L 10/13/17 10/13/17 10/14/17 Range/Units 22:58 23:52 01:28 WBC (3.8-10.6) k/uL RBC (4.30-5.90) m/uL Hgb (13.0-17.5) gm/dL Hct (39.0-53.0) % Chloride (98-107) mmol/L BUN (9-20) mg/dL Creatinine (0.66-1.25) mg/dL Glucose (74-99) mg/dL POC Glucose (mg/dL) 137 H 155 H 131 H (75-99) mg/dL Hemoglobin A1c (4.0-6.0) % Magnesium (1.6-2.3) mg/dL AST (17-59) U/L 10/14/17 10/14/17 10/14/17 Range/Units 02:24 03:52 04:00 WBC (3.8-10.6) k/uL RBC (4.30-5.90) m/uL Hgb (13.0-17.5) gm/dL Hct (39.0-53.0) % Chloride 110 H (98-107) mmol/L BUN 59 H (9-20) mg/dL Creatinine 2.10 H (0.66-1.25) mg/dL Glucose 145 H (74-99) mg/dL POC Glucose (mg/dL) 154 H 149 H (75-99) mg/dL Hemoglobin A1c (4.0-6.0) % Magnesium 2.7 H (1.6-2.3) mg/dL AST (17-59) U/L 10/14/17 10/14/17 10/14/17 Range/Units 04:00 05:03 05:58 WBC 17.8 H (3.8-10.6) k/uL RBC 3.75 L (4.30-5.90) m/uL Hgb 10.7 L (13.0-17.5) gm/dL Hct 34.2 L (39.0-53.0) % Chloride (98-107) mmol/L BUN (9-20) mg/dL Creatinine (0.66-1.25) mg/dL Glucose (74-99) mg/dL POC Glucose (mg/dL) 129 H 140 H (75-99) mg/dL Hemoglobin A1c (4.0-6.0) % Magnesium (1.6-2.3) mg/dL AST (17-59) U/L 10/14/17 10/14/17 10/14/17 Range/Units 08:09 09:04 10:01 WBC (3.8-10.6) k/uL RBC (4.30-5.90) m/uL Hgb (13.0-17.5) gm/dL Hct (39.0-53.0) % Chloride (98-107) mmol/L BUN (9-20) mg/dL Creatinine (0.66-1.25) mg/dL Glucose (74-99) mg/dL POC Glucose (mg/dL) 147 H 185 H 150 H (75-99) mg/dL Hemoglobin A1c (4.0-6.0) % Magnesium (1.6-2.3) mg/dL AST (17-59) U/L 10/14/17 10/14/17 Range/Units 11:02 12:06 WBC (3.8-10.6) k/uL RBC (4.30-5.90) m/uL Hgb (13.0-17.5) gm/dL Hct (39.0-53.0) % Chloride (98-107) mmol/L BUN (9-20) mg/dL Creatinine (0.66-1.25) mg/dL Glucose (74-99) mg/dL POC Glucose (mg/dL) 167 H 166 H (75-99) mg/dL Hemoglobin A1c (4.0-6.0) % Magnesium (1.6-2.3) mg/dL AST (17-59) U/L Microbiology - Last 24 Hours (Table) 10/12/17 09:27 Gram Stain - Preliminary Synovial Fluid Body Fluid Culture - Preliminary Staphylococcus aureus 10/13/17 07:25 Blood Culture Gram Stain - Preliminary Blood 10/13/17 08:45 Blood Culture Gram Stain - Preliminary Blood 10/13/17 07:25 Blood Culture - Final Blood 10/13/17 08:45 Blood Culture - Final Blood 10/11/17 21:15 Blood Culture Gram Stain - Final Blood Blood Culture - Final Staphylococcus aureus 10/12/17 19:48 Gram Stain - Preliminary Ankle - Left Wound Culture - Preliminary Presumptive Staph aureus 10/12/17 19:48 Gram Stain - Preliminary Ankle - Left Wound Culture - Preliminary Presumptive Staph aureus Assessment and Plan Assessment: 1 acute septic arthritis of the left ankle, status post left ankle irrigation and debridement and the patient is postop day #2. There is also application of a wound VAC to left ankle. Patient is postop day #2 2 acute sepsis secondary to above and the blood cultures positive for MSSA 3 acute fever and chills and leukocytosis and sinus tachycardia secondary to above 4 altered mental status secondary to above, improved 5 acute hypoxemic respiratory failure secondary sepsis and suspect some component of interstitial edema could be cardiogenic or noncardiogenic, at this point it is not quite clear. However I will try BiPAP, I would also try Lasix 40 mg IV push times one. 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 Time with Patient: Less than 30
[2017-10-14 12:55] LABS: Glucose,Whole Blood 158 mg/dL (75-99)
[2017-10-14] MEDS: PREGABALIN 100 MG CAP PO SCH ×2 (13:03→17:39)
[2017-10-14 14:10] LABS: Glucose,Whole Blood 166 mg/dL (75-99)
[2017-10-14 14:59] LABS: Glucose,Whole Blood 160 mg/dL (75-99)
[2017-10-14 17:15] LABS: Glucose,Whole Blood 144 mg/dL (75-99)
[2017-10-14] MEDS: ceFAZolin IN SWFI 2 GM/20 ML SYRINGE IVP SCH (17:24)
[2017-10-14 18:16] LABS: Glucose,Whole Blood 164 mg/dL (75-99)
[2017-10-14 19:06] LABS: Glucose,Whole Blood 150 mg/dL (75-99)
--- NOTE | 2017-10-14 19:14 | PN ---
PROGRESS NOTE DATE OF SERVICE: 10/14/17 PRESENTING COMPLAINT: Septic arthritis. INTERVAL HISTORY: The patient admitted with septic arthritis of the left ankle, status post I and D. Also developed lung injury/ARDS for which patient has been on oxygen. The patient remains to be a bit lethargic, early given some Lasix by Dr. Florez. Has been requiring BiPAP. at the bedside. Patient also has a wound VAC on the left ankle. REVIEW OF SYSTEMS: Cannot be done. Patient continues to be lethargic. MEDICATIONS: Current medications reviewed that include daptomycin has been taken off. Patient is put now on IV cefazolin and insulin drip. PHYSICAL EXAMINATION: Temperature 98.7, pulse 82, respirations 13, blood pressure 109/59, pulse ox 98% on oxygen support. EYES: Pupils equal. Conjunctivae normal. HEENT: External appearance of nose and ears normal. Oral cavity normal. NECK: JVD unable to assess. Mass not palpable. RESPIRATORY: Effort increased. Lungs, diminished breath sounds. CARDIOVASCULAR: First and second sounds. No edema. ABDOMEN: Distended, soft. Liver and spleen not palpable. LEFT LEG: Left ankle is wrapped up with a wound VAC in place. INVESTIGATIONS: White count 17.8, hemoglobin 10.7, potassium 4.7, BUN 59, creatinine 2.10. ASSESSMENT: 1. Septic arthritis of the left ankle, present on admission, causing severe sepsis, status post I&D cultures growing MSSA. 2. Acute delirium and septic encephalopathy. 3. Prior history of right foot osteomyelitis with re-amputation in 2016. 4. Gastroesophageal reflux disease. 5. Essential hypertension. 6. Diabetes mellitus type 2 uncontrolled with hypoglycemia, currently on insulin drip. 7. Hypothyroid. 8. Peripheral neuropathy from diabetes. 9. Hiatal hernia. 10.Hyperlipidemia. 11.Morbid obesity, BMI 42.9. 12.Mild to moderate ARDS due to underlying sepsis. 13.Acute hypoxic respiratory failure requiring oxygen from above. 14.Acute renal failure probably acute tubular necrosis from sepsis. 15.Left ankle Charcot joint. The patient's Vancomycin has been discontinued. The patient was switched over to Ancef. Care was discussed with at the bedside. Prognosis is guarded. The patient is being followed by Infectious Disease and Critical Care. We will also get a nephrology opinion. MMODL / IJN: [id number] /
[2017-10-14 20:01] LABS: Glucose,Whole Blood 154 mg/dL (75-99)
[2017-10-14] MEDS: ATORVASTATIN 40 MG TAB PO SCH ×2 (20:06→20:10)
[2017-10-14] MEDS: hydrALAZINE HCL 20 MG/ML 1 ML VIAL IVP PRN (20:11)
[2017-10-14] MEDS ORDERED: LABETALOL 100 MG in SODIUM CHLORIDE 0.9% 80 ML IV SCH (20:30)
[2017-10-14 20:44] LABS: ABG Base Excess -3.9 mmol/L; ABG HCO3 23 mmol/L (21-25); ABG Oxygen Saturation 97.4 % (94-97); ABG PCO2 54 mmHg (35-45); ABG PH 7.25 (7.35-7.45); ABG PO2 90 mmHg (83-108); ABG TCO2 25 mmol/L (19-24)
[2017-10-14] MEDS ORDERED: SODIUM BICARB 8.4% 50 ML SYR (1 MEQ/ML) IV ONE (20:58)
[2017-10-14 21:57] LABS: Glucose,Whole Blood 143 mg/dL (75-99)
--- NOTE | 2017-10-14 22:26 | P.PN ---
Subjective Progress Note Date: 10/14/17 Principal diagnosis: Sepsis 52-year-old male has a long-standing history of diabetes mellitus type 2 poorly controlled and history of a prior diabetic foot ulceration to the right foot which resulted in a great toe amputation. The patient is been having some difficulties with his left ankle and following with the orthopedic surgeon. Because of some discomfort at the joint he was measured and given a new bracing device for the foot and ankle. However grommet on the dorsum of the foot resulted in a bit of an ulcer and he was concerned and sought care in the office. The patient had difficulty making the appointment because of the weather and has significant distance from work to the office and reschedule. When he came to the office earlier this week the ulceration had healed and he was feeling better but was still having some swelling to the ankle area. He had no fever or chills at the time of presentation to the office, but did have the swelling to the ankle area for which she had a specialty boot that have been designed that he was not wearing that day. He however presents to the emergency center because of the sudden onset of inability to bear weight to the ankle because of the amount of pain that he started to have. Shortly thereafter he became febrile and has had a rapid decline in his status with evidence of sepsis and presentation to the intensive care unit. The case is discussed with the radiation therapist as well as the orthopedic foot and ankle specialist. Given his rapid decline in status he'll go to the operating room this afternoon. The patient is acutely ill with fever chills generalized weakness and malaise and some alteration of his mental status 10/13/2017 patient remains in intensive care unit with ongoing sepsis. Appears to have acute lung injury and also has an elevation of his creatinine likely with an acute renal injury also occurring from his sepsis. Laboratories revealed evidence of staph aureus await final susceptibility. Follow blood cultures in process reasonable cultures are positive. Patient continues to have some ongoing fevers and is admitted of nausea with the response to Zofran. He is still in a warm flushed phase of sepsis and hopefully now that he has been resuscitated will have further improvement of his status. 10/14/2017 patient does have some improvement today. He is not hypotensive not requiring vasopressors but is still on high flow oxygen for his acute lung injury. He has had fevers but down to 99.9 still feels poorly and has significant pain of the left foot and ankle area. Objective - Vital Signs Vital signs: Vital Signs Temp 97.5 F L 10/14/17 20:00 Pulse 96 10/14/17 21:00 Resp 11 L 10/14/17 21:00 BP 111/52 10/14/17 17:00 Pulse Ox 98 10/14/17 21:00 Intake & Output 10/14/17 10/14/17 10/15/17 06:59 18:59 06:59 Intake Total 8056.315 8293.317 173.952 Output Total 1795 2815 385 Balance -299.066 -1531.683 -211.048 Weight 162.8 kg 162.8 kg Intake: IV 1440 1262.5 140 Piperacillin-Tazobactam 3 102.5 .375 gm In Dextrose/Water 1 50ml.bag @ 12.5 mls/hr IVPB Q8H [facility] Rx#: [id number] Sodium Chloride 0.9% 1, 1440 1160 140 000 ml @ 70 mls/hr IV . [id number] [facility] Rx#:[id number] Intake, IV Titration 55.934 20.817 33.952 Amount Insulin Regular 100 unit 55.934 20.817 33.952 In Sodium Chloride 0.9% 100 ml @ Per Protocol IV .Q0M [facility] Rx#:[id number] Output: Drainage 400 Left Ankle 400 Urine 1395 2815 385 Other: Voiding Method Indwelling Catheter Indwelling Catheter Indwelling Catheter ABP, PAP, CO, CI - Last Documented Arterial Blood Pressure 148/64 - Exam 52-year-old male presents to Hospital feeling acutely ill found to have evidence of fever and then rapidly developed sepsis HEENT: Anicteric conjunctiva are pink and moist nasal mucosa grossly intact without significant lesions, there is no thrush. Neck: The neck is supple without significant lymphadenopathy or thyromegaly. Lungs: Good bilateral air entry without significant crackles or wheezing. There is no significant bronchial sounds. There is no egophony or dullness. Heart: Tachycardic but regular with an audible S1 and S2 soft S4 There is no significant murmur click or rub, PMI was nondisplaced. Abdomen: Obese Positive bowel sounds soft and nontender without palpable masses or organomegaly. There was no guarding or rebound. Extremities: The upper extremities have excellent pulses they are symmetric, no significant petechiae or telangiectasia. No splinter hemorrhages were noted. Right lower extremity has evidence of the prior great toe amputation which is well healed. Left lower extremity reveals evidence of the wound VAC at the site of the surgical incision and drainage performed yesterday. The VAC dressing is removed. The surgical wound is evaluated there is some scant drainage, it is uncomfortable to any range of motion. There is no significant erythema that has ascended the limb at this time. There is no inguinal lymphadenopathy. Neuro: Arousable oriented - Labs CBC & Chem 7: 10/14/17 04:00 10/14/17 04:00 Labs: Abnormal Lab Results - Last 24 Hours (Table) 10/13/17 10/13/17 10/14/17 Range/Units 22:58 23:52 01:28 WBC (3.8-10.6) k/uL RBC (4.30-5.90) m/uL Hgb (13.0-17.5) gm/dL Hct (39.0-53.0) % ABG pH (7.35-7.45) ABG pCO2 (35-45) mmHg ABG Total CO2 (19-24) mmol/L ABG O2 Saturation (94-97) % Chloride (98-107) mmol/L BUN (9-20) mg/dL Creatinine (0.66-1.25) mg/dL Glucose (74-99) mg/dL POC Glucose (mg/dL) 137 H 155 H 131 H (75-99) mg/dL Magnesium (1.6-2.3) mg/dL 10/14/17 10/14/17 10/14/17 Range/Units 02:24 03:52 04:00 WBC (3.8-10.6) k/uL RBC (4.30-5.90) m/uL Hgb (13.0-17.5) gm/dL Hct (39.0-53.0) % ABG pH (7.35-7.45) ABG pCO2 (35-45) mmHg ABG Total CO2 (19-24) mmol/L ABG O2 Saturation (94-97) % Chloride 110 H (98-107) mmol/L BUN 59 H (9-20) mg/dL Creatinine 2.10 H (0.66-1.25) mg/dL Glucose 145 H (74-99) mg/dL POC Glucose (mg/dL) 154 H 149 H (75-99) mg/dL Magnesium 2.7 H (1.6-2.3) mg/dL 10/14/17 10/14/17 10/14/17 Range/Units 04:00 05:03 05:58 WBC 17.8 H (3.8-10.6) k/uL RBC 3.75 L (4.30-5.90) m/uL Hgb 10.7 L (13.0-17.5) gm/dL Hct 34.2 L (39.0-53.0) % ABG pH (7.35-7.45) ABG pCO2 (35-45) mmHg ABG Total CO2 (19-24) mmol/L ABG O2 Saturation (94-97) % Chloride (98-107) mmol/L BUN (9-20) mg/dL Creatinine (0.66-1.25) mg/dL Glucose (74-99) mg/dL POC Glucose (mg/dL) 129 H 140 H (75-99) mg/dL Magnesium (1.6-2.3) mg/dL 10/14/17 10/14/17 10/14/17 Range/Units 08:09 09:04 10:01 WBC (3.8-10.6) k/uL RBC (4.30-5.90) m/uL Hgb (13.0-17.5) gm/dL Hct (39.0-53.0) % ABG pH (7.35-7.45) ABG pCO2 (35-45) mmHg ABG Total CO2 (19-24) mmol/L ABG O2 Saturation (94-97) % Chloride (98-107) mmol/L BUN (9-20) mg/dL Creatinine (0.66-1.25) mg/dL Glucose (74-99) mg/dL POC Glucose (mg/dL) 147 H 185 H 150 H (75-99) mg/dL Magnesium (1.6-2.3) mg/dL 10/14/17 10/14/17 10/14/17 Range/Units 11:02 12:06 12:54 WBC (3.8-10.6) k/uL RBC (4.30-5.90) m/uL Hgb (13.0-17.5) gm/dL Hct (39.0-53.0) % ABG pH (7.35-7.45) ABG pCO2 (35-45) mmHg ABG Total CO2 (19-24) mmol/L ABG O2 Saturation (94-97) % Chloride (98-107) mmol/L BUN (9-20) mg/dL Creatinine (0.66-1.25) mg/dL Glucose (74-99) mg/dL POC Glucose (mg/dL) 167 H 166 H 158 H (75-99) mg/dL Magnesium (1.6-2.3) mg/dL 10/14/17 10/14/17 10/14/17 Range/Units 14:07 14:58 17:14 WBC (3.8-10.6) k/uL RBC (4.30-5.90) m/uL Hgb (13.0-17.5) gm/dL Hct (39.0-53.0) % ABG pH (7.35-7.45) ABG pCO2 (35-45) mmHg ABG Total CO2 (19-24) mmol/L ABG O2 Saturation (94-97) % Chloride (98-107) mmol/L BUN (9-20) mg/dL Creatinine (0.66-1.25) mg/dL Glucose (74-99) mg/dL POC Glucose (mg/dL) 166 H 160 H 144 H (75-99) mg/dL Magnesium (1.6-2.3) mg/dL 10/14/17 10/14/17 10/14/17 Range/Units 18:13 19:04 19:59 WBC (3.8-10.6) k/uL RBC (4.30-5.90) m/uL Hgb (13.0-17.5) gm/dL Hct (39.0-53.0) % ABG pH (7.35-7.45) ABG pCO2 (35-45) mmHg ABG Total CO2 (19-24) mmol/L ABG O2 Saturation (94-97) % Chloride (98-107) mmol/L BUN (9-20) mg/dL Creatinine (0.66-1.25) mg/dL Glucose (74-99) mg/dL POC Glucose (mg/dL) 164 H 150 H 154 H (75-99) mg/dL Magnesium (1.6-2.3) mg/dL 10/14/17 10/14/17 Range/Units 20:32 21:55 WBC (3.8-10.6) k/uL RBC (4.30-5.90) m/uL Hgb (13.0-17.5) gm/dL Hct (39.0-53.0) % ABG pH 7.25 L (7.35-7.45) ABG pCO2 54 H (35-45) mmHg ABG Total CO2 25 H (19-24) mmol/L ABG O2 Saturation 97.4 H (94-97) % Chloride (98-107) mmol/L BUN (9-20) mg/dL Creatinine (0.66-1.25) mg/dL Glucose (74-99) mg/dL POC Glucose (mg/dL) 143 H (75-99) mg/dL Magnesium (1.6-2.3) mg/dL Microbiology - Last 24 Hours (Table) 10/12/17 19:48 Anaerobic Culture - Preliminary Ankle - Left 10/12/17 19:48 Anaerobic Culture - Preliminary Ankle - Left 10/12/17 19:48 Gram Stain - Final Ankle - Left Wound Culture - Final Staph aureus 10/12/17 19:48 Gram Stain - Final Ankle - Left Wound Culture - Final Staphylococcus aureus 10/13/17 07:25 Blood Culture Gram Stain - Preliminary Blood Blood Culture - Preliminary Presumptive Staph aureus 10/13/17 08:45 Blood Culture Gram Stain - Preliminary Blood Blood Culture - Preliminary Presumptive Staph aureus 10/12/17 09:27 Gram Stain - Final Synovial Fluid Body Fluid Culture - Final Staphylococcus aureus 10/13/17 07:25 Blood Culture - Final Blood 10/13/17 08:45 Blood Culture - Final Blood 10/11/17 21:15 Blood Culture Gram Stain - Final Blood Blood Culture - Final Staphylococcus aureus Laboratory Results WBC 17.8 k/uL (3.8-10.6) H 10/14/17 04:00 RBC 3.75 m/uL (4.30-5.90) L 10/14/17 04:00 Hgb 10.7 gm/dL (13.0-17.5) L 10/14/17 04:00 Hct 34.2 % (39.0-53.0) L 10/14/17 04:00 MCV 91.4 fL (80.0-100.0) 10/14/17 04:00 MCH 28.4 pg (25.0-35.0) 10/14/17 04:00 MCHC 31.1 g/dL (31.0-37.0) 10/14/17 04:00 RDW 13.8 % (11.5-15.5) 10/14/17 04:00 Plt Count 250 k/uL (150-450) 10/14/17 04:00 Neutrophils % 94 % 10/13/17 03:35 Lymphocytes % 2 % 10/13/17 03:35 Monocytes % 4 % 10/13/17 03:35 Eosinophils % 0 % 10/13/17 03:35 Basophils % 0 % 10/13/17 03:35 Neutrophils # 19.5 k/uL (1.3-7.7) H 10/13/17 03:35 Lymphocytes # 0.4 k/uL (1.0-4.8) L 10/13/17 03:35 Monocytes # 0.7 k/uL (0-1.0) 10/13/17 03:35 Eosinophils # 0.0 k/uL (0-0.7) 10/13/17 03:35 Basophils # 0.0 k/uL (0-0.2) 10/13/17 03:35 Hypochromasia Moderate 10/14/17 04:00 ESR 25 mm/hr (0-15) H 10/12/17 07:29 Sample Site [place] 10/14/17 20:32 ABG pH 7.25 (7.35-7.45) L 10/14/17 20:32 ABG pCO2 54 mmHg (35-45) H 10/14/17 20:32 ABG pO2 90 mmHg (83-108) 10/14/17 20:32 ABG HCO3 23 mmol/L (21-25) 10/14/17 20:32 ABG Total CO2 25 mmol/L (19-24) H 10/14/17 20:32 ABG O2 Saturation 97.4 % (94-97) H 10/14/17 20:32 ABG Base Excess -3.9 mmol/L 10/14/17 20:32 Cr Test no 10/14/17 20:32 ABG Lactic Acid 1.0 mmol/L (0.5-1.6) 10/12/17 18:06 FiO2 60 % 10/14/17 20:32 Sodium 143 mmol/L (137-145) 10/14/17 04:00 Potassium 4.7 mmol/L (3.5-5.1) 10/14/17 04:00 Chloride 110 mmol/L (98-107) H 10/14/17 04:00 Carbon Dioxide 22 mmol/L (22-30) 10/14/17 04:00 Anion Gap 11 mmol/L 10/14/17 04:00 BUN 59 mg/dL (9-20) H 10/14/17 04:00 Creatinine 2.10 mg/dL (0.66-1.25) H 10/14/17 04:00 Est GFR (CKD-EPI)AfAm 40 (>60 ml/min/1.73 sqM) 10/14/17 04:00 Est GFR (CKD-EPI)NonAf 35 (>60 ml/min/1.73 sqM) 10/14/17 04:00 Glucose 145 mg/dL (74-99) H 10/14/17 04:00 POC Glucose (mg/dL) 143 mg/dL (75-99) H 10/14/17 21:55 POC Glu Procedure Writer ID Dory Townsend 10/14/17 21:[address] Glu mg/dL 214 10/12/17 07:29 Hemoglobin A1c 9.1 % (4.0-6.0) H 10/12/17 07:29 Plasma Lactic Acid Ron 1.5 mmol/L (0.7-2.0) 10/11/17 21:10 Uric Acid 5.6 mg/dL (3.5-8.5) 10/11/17 21:10 Calcium 8.4 mg/dL (8.4-10.2) 10/14/17 04:00 Phosphorus 4.5 mg/dL (2.5-4.5) 10/14/17 04:00 Magnesium 2.7 mg/dL (1.6-2.3) H 10/14/17 04:00 AST 96 U/L (17-59) H 10/13/17 19:55 ALT 58 U/L (21-72) 10/13/17 19:55 C-Reactive Protein 45.1 mg/L (<10.0) H 10/11/17 21:10 Microbiology 10/12/17 19:48 Ankle - Left Anaerobic Culture - Preliminary 10/12/17 19:48 Ankle - Left Anaerobic Culture - Preliminary 10/12/17 19:48 Ankle - Left Gram Stain - Final 10/12/17 19:48 Ankle - Left Wound Culture - Final Staph aureus 10/12/17 19:48 Ankle - Left Gram Stain - Final 10/12/17 19:48 Ankle - Left Wound Culture - Final Staphylococcus aureus 10/13/17 07:25 Blood Blood Culture Gram Stain - Preliminary 10/13/17 07:25 Blood Blood Culture - Preliminary Presumptive Staph aureus 10/13/17 08:45 Blood Blood Culture Gram Stain - Preliminary 10/13/17 08:45 Blood Blood Culture - Preliminary Presumptive Staph aureus 10/12/17 09:27 Synovial Fluid Gram Stain - Final 10/12/17 09:27 Synovial Fluid Body Fluid Culture - Final Staphylococcus aureus 10/13/17 07:25 Blood Blood Culture - Final 10/13/17 08:45 Blood Blood Culture - Final 10/11/17 21:15 Blood Blood Culture Gram Stain - Final 10/11/17 21:15 Blood Blood Culture - Final Staphylococcus aureus 10/11/17 21:15 Blood Blood Culture - Final Assessment and Plan (1) Septic arthritis of left ankle Narrative/Plan: 52-year-old male presents the emergency center with inability to bear weight to his left ankle. The patient has had some new orthotic boot manufactured in a developed a small ulcer on the dorsum of the left foot. This apparently was from a grommet from an orthotic. This was completely healed and was evaluated but was still having ongoing difficulties with ankle area. Is actively following up with orthopedic foot and ankle. The patient does have a boot that was designed that he was not wearing when he came to the office and understands it is important that he wears this when he is at work to protect his ankle from the [place] changes. Patient however now has high-grade fever chills leukocytosis and laboratories: Positive blood culture with gram-positive cocci. The patient did have aspiration per orthopedic ankle grossly purulent material was found. Originally the plan was to go to the operating him in the morning but as the patient felt worsening sepsis he is no scheduled operating room this afternoon for the incision and drainage of this abscess. Deep cultures and pathology will also be sent. Antibiotic therapy is altered from vancomycin to daptomycin. In hopes to have a more rapid bacteriocidal activity given his rapidly declining status. Enhance glucose control be important part of his healing. Leukocytosis record related to his current sepsis. There is evidence of possible culture and he will require follow blood cultures in the morning. He was monitored for any persistence of his bacteremia. There will be a coordinated effort between orthopedic ankle and infectious disease as to the care at discharge. 10/13/2017 reveals the patient still needs intensive care unit after surgery with ongoing sepsis. Continues to have fever and leukocytosis and difficulties with acute lung injury and now elevated creatinine to 2.0. Patient continues to be resuscitated and has had some improvement but minimal at this point in time. He will continue with maneuvers to improve his fever maintain his hydration and antibiotic therapy continues with daptomycin for both staph aureus and MRSA, blood culture and aspirate from the ankle are still showing staph aureus final susceptibility is pending. Patient aware that if he improves he will be receiving a jg completed a long course of IV antibiotic therapy for this extensive infection. Leukocytosis directly related to the sepsis 10/14/2017 the patient remains in intensive care unit, high flow oxygen is being utilized for his acute lung injury. His creatinine has increased further is now 2.0. Urine output is adequate. He is symptomatically stable is having difficulties with shortness of breath. Pain at the foot and ankle is predictable but the significant swelling history improving after surgical incision and drainage. Ulceration is treated with a medical history dressing. If there is no further marked improvement by tomorrow the patient will likely go back to the operating him for further incision and drainage to the site. The case is discussed with the orthopedic surgeon. Current Visit: Yes Status: Acute Code(s): M00.9 - PYOGENIC ARTHRITIS, UNSPECIFIED SNOMED Code(s): 46652933 (2) Sepsis Current Visit: Yes Status: Acute Priority: Medium Code(s): A41.9 - SEPSIS , UNSPECIFIED ORGANISM SNOMED Code(s): 49468239 (3) Poorly controlled type 2 diabetes mellitus with complication Current Visit: Yes Status: Acute Code(s): E11.8 - TYPE 2 DIABETES MELLITUS WITH UNSPECIFIED COMPLICATIONS; E11.65 - TYPE 2 DIABETES MELLITUS WITH HYPERGLYCEMIA SNOMED Code(s): 21610986
[2017-10-14] MEDS ORDERED: PROPOFOL 100 ML IV ONE (22:56)
[2017-10-14] MEDS ORDERED: MIDAZOLAM (PF) 1 MG/ML 5 ML VIAL ONE (23:15)
[2017-10-14] MEDS ORDERED: ROCURONIUM BROMIDE 10 MG/ML 10 ML VIAL IV ONE (23:15)
[2017-10-14] MEDS: PROPOFOL 1,000 MG in EMPTY BAG 1 BAG IV SCH (23:30)
--- NOTE | 2017-10-14 23:54 | XR ---
EXAMINATION TYPE: XR chest 1V DATE OF EXAM: 10/14/2017 COMPARISON: Today HISTORY: Difficulty breathing TECHNIQUE: Single frontal view of the chest is obtained. FINDINGS: Endotracheal tube appears in good position. There is left jugular catheter with tip in the superior vena cava. I see no pneumothorax. There is pulmonary edema. There are chest leads. There is a nasogastric tube. IMPRESSION: Pulmonary edema probably due to congestive heart failure. Consider also RDS. Heart and l ungs are unchanged compared to exam this morning at 7:00 AM.
[2017-10-15] LABS: Glucose,Whole Blood 140 mg/dL (75-99)
[2017-10-15] LABS: ABG Base Excess -4.2 mmol/L; ABG HCO3 24 mmol/L (21-25); ABG Oxygen Saturation 98.4 % (94-97); ABG PCO2 67 mmHg (35-45); ABG PO2 126 mmHg (83-108); ABG TCO2 26 mmol/L (19-24)
[2017-10-15 00:04] LABS: ABG PH 7.17 (7.35-7.45)
[2017-10-15] MEDS: HEPARIN SODIUM,PORCINE 5,000 UNIT/ML 1 ML VIAL SQ SCH ×3 (00:54→15:08)
[2017-10-15] MEDS: ceFAZolin IN SWFI 2 GM/20 ML SYRINGE IVP SCH ×3 (00:58→15:10)
[2017-10-15] MEDS: PREGABALIN 100 MG CAP PO SCH ×4 (01:07→21:07)
[2017-10-15] MEDS: SODIUM CHLORIDE 0.9% 1,000 ML IV SCH ×2 (01:08→13:06)
[2017-10-15] MEDS: PROPOFOL 1,000 MG in EMPTY BAG 1 BAG IV SCH ×4 (01:26→21:08)
[2017-10-15] MEDS ORDERED: NOREPINEPHRIN 16 MG-0.9%NS PMX 16 MG/250 ML ML IV SCH (01:30)
[2017-10-15 02:07] LABS: Glucose,Whole Blood 155 mg/dL (75-99)
[2017-10-15] MEDS: INSULIN REGULAR 100 UNIT in SODIUM CHLORIDE 0.9% 100 ML IV SCH ×2 (02:07→15:22)
[2017-10-15 04:14] LABS: Glucose,Whole Blood 140 mg/dL (75-99)
[2017-10-15 05:47] LABS: Basophils % (A) 0 %; Eosinophils # (A) 0.1 k/uL (0-0.7); Eosinophils % (A) 1 %; HCT 31.6 % (39.0-53.0); HGB 9.6 gm/dL (13.0-17.5); Hypochromasia Moderate; Lymphocytes # (A) 0.9 k/uL (1.0-4.8); Lymphocytes % (A) 6 %; MCH 27.6 pg (25.0-35.0); MCHC 30.3 g/dL (31.0-37.0); MCV 91.1 fL (80.0-100.0); Mean Platelet Volume 8.4; Monocytes # (A) 0.7 k/uL (0-1.0); Monocytes % (A) 5 %; Neutrophils # (A) 11.7 k/uL (1.3-7.7); Neutrophils % (A) 86 %; Platelet Count 231 k/uL (150-450); RBC 3.47 m/uL (4.30-5.90); RDW 13.9 % (11.5-15.5); WBC 13.6 k/uL (3.8-10.6)
[2017-10-15 05:53] LABS: Calcium 8.5 mg/dL (8.4-10.2); Phosphorus 4.3 mg/dL (2.5-4.5); Potassium 4.5 mmol/L (3.5-5.1)
[2017-10-15] MEDS: LEVOTHYROXINE 75 MCG TAB PO SCH (05:55)
[2017-10-15 06:01] LABS: Glucose,Whole Blood 138 mg/dL (75-99)
[2017-10-15 07:16] LABS: Glucose,Whole Blood 121 mg/dL (75-99)
[2017-10-15 07:24] LABS: ABG HCO3 23 mmol/L (21-25); ABG PCO2 51 mmHg (35-45); ABG PH 7.26 (7.35-7.45); ABG PO2 158 mmHg (83-108); ABG TCO2 24 mmol/L (19-24)
[2017-10-15 07:25] LABS: ABG Base Excess -4.3 mmol/L
[2017-10-15] MEDS: METOPROLOL TARTRATE 25 MG TAB PO SCH ×2 (07:32→22:08)
[2017-10-15] MEDS: CHLORHEXIDINE GLUCONATE 15 ML CUP MUCOUS MEM SCH ×2 (07:33→21:06)
[2017-10-15] MEDS: GABAPENTIN 300 MG CAP PO SCH (07:33)
[2017-10-15] MEDS: PANTOPRAZOLE 40 MG/10 ML VIAL IV SCH (07:34)
--- NOTE | 2017-10-15 08:12 | XR ---
EXAMINATION TYPE: XR chest 1V portable DATE OF EXAM: 10/15/2017 COMPARISON: 10/14/2017 HISTORY: SOB, Follow Up FINDINGS: Indwelling tubes and catheters are unchanged. No change in bibasilar opacities. Stable appearance of the cardio-mediastinal structures at this time. Pleural effusion unchanged. IMPRESSION: 1. Stable portable chest. Clinical correlation and follow up until resolution is recommended.
[2017-10-15 08:21] LABS: Glucose,Whole Blood 162 mg/dL (75-99)
[2017-10-15] MEDS: NON-FORMULARY DRUG (Empagliflozin [Jardiance] 25 MG) PO SCH (08:35)
[2017-10-15 09:13] LABS: Glucose,Whole Blood 157 mg/dL (75-99)
--- NOTE | 2017-10-15 09:36 | P.PN ---
Subjective Progress Note Date: 10/15/17 Principal diagnosis: Left Ankle septic arthritis, abcess, cellulitis This is a 52 year-old male post irrigation and debridement left ankle joint with wound VAC application. This is post-op day 3. Patient was intubated last evening due to inability to maintain proper ventilation and O2 saturation.. His pain appears controlled at this time and he appears NAD. Objective - Vital Signs Vital signs: Vital Signs Temp 97.9 F 10/15/17 04:00 Pulse 81 10/15/17 07:00 Resp 28 H 10/15/17 07:00 BP 111/52 10/14/17 17:00 Pulse Ox 96 10/15/17 07:00 Intake & Output 10/14/17 10/15/17 10/15/17 18:59 06:59 18:59 Intake Total 7335.199 6116.685 87.017 Output Total 2815 1140 Balance -1531.683 -78.315 87.017 Weight 162.8 kg 150.1 kg Intake: IV 1262.5 910 Piperacillin-Tazobactam 3 102.5 .375 gm In Dextrose/Water 1 50ml.bag @ 12.5 mls/hr IVPB Q8H [facility] Rx#: [id number] Sodium Chloride 0.9% 1, 1160 910 000 ml @ 70 mls/hr IV . [id number] [facility] Rx#:[id number] Intake, IV Titration 20.817 151.685 87.017 Amount Insulin Regular 100 unit 20.817 42.352 14.35 In Sodium Chloride 0.9% 100 ml @ Per Protocol IV .Q0M [facility] Rx#:[id number] Labetalol 100 mg In 90 Sodium Chloride 0.9% 80 ml @ Titrate IV .Q0M [facility] Rx#:[id number] Propofol 1,000 mg In 19.333 72.667 Empty Bag 1 bag @ Titrate IV .Q0M [facility] Rx#: [id number] Output: Urine 2815 1140 Other: Voiding Method Indwelling Catheter Indwelling Catheter ABP, PAP, CO, CI - Last Documented Arterial Blood Pressure 129/64 - Exam The patient does not appear in acute distress. Left Ankle: Bandage is removed. There is no active bleeding or purulence. No purulence could be expressed. There is serosangous drainage as expected. Calf is soft and nontender. Perfusion into the digits remains iuntact. No evidence of ascending infection - Constitutional General appearance: Present: no acute distress - Labs CBC & Chem 7: 10/15/17 05:00 10/15/17 05:00 Labs: Abnormal Lab Results - Last 24 Hours (Table) 10/14/17 10/14/17 10/14/17 Range/Units 09:04 10:01 11:02 WBC (3.8-10.6) k/uL RBC (4.30-5.90) m/uL Hgb (13.0-17.5) gm/dL Hct (39.0-53.0) % MCHC (31.0-37.0) g/dL Neutrophils # (1.3-7.7) k/uL Lymphocytes # (1.0-4.8) k/uL ABG pH (7.35-7.45) ABG pCO2 (35-45) mmHg ABG pO2 (83-108) mmHg ABG Total CO2 (19-24) mmol/L ABG O2 Saturation (94-97) % Chloride (98-107) mmol/L BUN (9-20) mg/dL Creatinine (0.66-1.25) mg/dL Glucose (74-99) mg/dL POC Glucose (mg/dL) 185 H 150 H 167 H (75-99) mg/dL Magnesium (1.6-2.3) mg/dL 10/14/17 10/14/17 10/14/17 Range/Units 12:06 12:54 14:07 WBC (3.8-10.6) k/uL RBC (4.30-5.90) m/uL Hgb (13.0-17.5) gm/dL Hct (39.0-53.0) % MCHC (31.0-37.0) g/dL Neutrophils # (1.3-7.7) k/uL Lymphocytes # (1.0-4.8) k/uL ABG pH (7.35-7.45) ABG pCO2 (35-45) mmHg ABG pO2 (83-108) mmHg ABG Total CO2 (19-24) mmol/L ABG O2 Saturation (94-97) % Chloride (98-107) mmol/L BUN (9-20) mg/dL Creatinine (0.66-1.25) mg/dL Glucose (74-99) mg/dL POC Glucose (mg/dL) 166 H 158 H 166 H (75-99) mg/dL Magnesium (1.6-2.3) mg/dL 10/14/17 10/14/17 10/14/17 Range/Units 14:58 17:14 18:13 WBC (3.8-10.6) k/uL RBC (4.30-5.90) m/uL Hgb (13.0-17.5) gm/dL Hct (39.0-53.0) % MCHC (31.0-37.0) g/dL Neutrophils # (1.3-7.7) k/uL Lymphocytes # (1.0-4.8) k/uL ABG pH (7.35-7.45) ABG pCO2 (35-45) mmHg ABG pO2 (83-108) mmHg ABG Total CO2 (19-24) mmol/L ABG O2 Saturation (94-97) % Chloride (98-107) mmol/L BUN (9-20) mg/dL Creatinine (0.66-1.25) mg/dL Glucose (74-99) mg/dL POC Glucose (mg/dL) 160 H 144 H 164 H (75-99) mg/dL Magnesium (1.6-2.3) mg/dL 10/14/17 10/14/17 10/14/17 Range/Units 19:04 19:59 20:32 WBC (3.8-10.6) k/uL RBC (4.30-5.90) m/uL Hgb (13.0-17.5) gm/dL Hct (39.0-53.0) % MCHC (31.0-37.0) g/dL Neutrophils # (1.3-7.7) k/uL Lymphocytes # (1.0-4.8) k/uL ABG pH 7.25 L (7.35-7.45) ABG pCO2 54 H (35-45) mmHg ABG pO2 (83-108) mmHg ABG Total CO2 25 H (19-24) mmol/L ABG O2 Saturation 97.4 H (94-97) % Chloride (98-107) mmol/L BUN (9-20) mg/dL Creatinine (0.66-1.25) mg/dL Glucose (74-99) mg/dL POC Glucose (mg/dL) 150 H 154 H (75-99) mg/dL Magnesium (1.6-2.3) mg/dL 10/14/17 10/14/17 10/15/17 Range/Units 21:55 23:58 00:00 WBC (3.8-10.6) k/uL RBC (4.30-5.90) m/uL Hgb (13.0-17.5) gm/dL Hct (39.0-53.0) % MCHC (31.0-37.0) g/dL Neutrophils # (1.3-7.7) k/uL Lymphocytes # (1.0-4.8) k/uL ABG pH 7.17 L* (7.35-7.45) ABG pCO2 67 H (35-45) mmHg ABG pO2 126 H (83-108) mmHg ABG Total CO2 26 H (19-24) mmol/L ABG O2 Saturation 98.4 H (94-97) % Chloride (98-107) mmol/L BUN (9-20) mg/dL Creatinine (0.66-1.25) mg/dL Glucose (74-99) mg/dL POC Glucose (mg/dL) 143 H 140 H (75-99) mg/dL Magnesium (1.6-2.3) mg/dL 10/15/17 10/15/17 10/15/17 Range/Units 02:06 04:13 05:00 WBC (3.8-10.6) k/uL RBC (4.30-5.90) m/uL Hgb (13.0-17.5) gm/dL Hct (39.0-53.0) % MCHC (31.0-37.0) g/dL Neutrophils # (1.3-7.7) k/uL Lymphocytes # (1.0-4.8) k/uL ABG pH (7.35-7.45) ABG pCO2 (35-45) mmHg ABG pO2 (83-108) mmHg ABG Total CO2 (19-24) mmol/L ABG O2 Saturation (94-97) % Chloride 110 H (98-107) mmol/L BUN 67 H (9-20) mg/dL Creatinine 2.00 H (0.66-1.25) mg/dL Glucose 139 H (74-99) mg/dL POC Glucose (mg/dL) 155 H 140 H (75-99) mg/dL Magnesium 3.0 H (1.6-2.3) mg/dL 10/15/17 10/15/17 10/15/17 Range/Units 05:00 05:58 07:14 WBC 13.6 H (3.8-10.6) k/uL RBC 3.47 L (4.30-5.90) m/uL Hgb 9.6 L (13.0-17.5) gm/dL Hct 31.6 L (39.0-53.0) % MCHC 30.3 L (31.0-37.0) g/dL Neutrophils # 11.7 H (1.3-7.7) k/uL Lymphocytes # 0.9 L (1.0-4.8) k/uL ABG pH (7.35-7.45) ABG pCO2 (35-45) mmHg ABG pO2 (83-108) mmHg ABG Total CO2 (19-24) mmol/L ABG O2 Saturation (94-97) % Chloride (98-107) mmol/L BUN (9-20) mg/dL Creatinine (0.66-1.25) mg/dL Glucose (74-99) mg/dL POC Glucose (mg/dL) 138 H 121 H (75-99) mg/dL Magnesium (1.6-2.3) mg/dL 10/15/17 10/15/17 10/15/17 Range/Units 07:18 08:19 09:11 WBC (3.8-10.6) k/uL RBC (4.30-5.90) m/uL Hgb (13.0-17.5) gm/dL Hct (39.0-53.0) % MCHC (31.0-37.0) g/dL Neutrophils # (1.3-7.7) k/uL Lymphocytes # (1.0-4.8) k/uL ABG pH 7.26 L (7.35-7.45) ABG pCO2 51 H (35-45) mmHg ABG pO2 158 H (83-108) mmHg ABG Total CO2 (19-24) mmol/L ABG O2 Saturation 100.0 H (94-97) % Chloride (98-107) mmol/L BUN (9-20) mg/dL Creatinine (0.66-1.25) mg/dL Glucose (74-99) mg/dL POC Glucose (mg/dL) 162 H 157 H (75-99) mg/dL Magnesium (1.6-2.3) mg/dL Microbiology - Last 24 Hours (Table) 10/12/17 19:48 Anaerobic Culture - Preliminary Ankle - Left 10/12/17 19:48 Anaerobic Culture - Preliminary Ankle - Left 10/12/17 19:48 Gram Stain - Final Ankle - Left Wound Culture - Final Staph aureus 10/12/17 19:48 Gram Stain - Final Ankle - Left Wound Culture - Final Staphylococcus aureus 10/13/17 07:25 Blood Culture Gram Stain - Preliminary Blood Blood Culture - Preliminary Presumptive Staph aureus 10/13/17 08:45 Blood Culture Gram Stain - Preliminary Blood Blood Culture - Preliminary Presumptive Staph aureus 10/12/17 09:27 Gram Stain - Final Synovial Fluid Body Fluid Culture - Final Staphylococcus aureus Assessment and Plan (1) Sepsis Narrative/Plan: His wound appears stable as no purulence or evidence of worsening infection is seen this morning. Continue IV antibiotics and wound care per ID. Medical management per account resolution analyst/IM. I will discuss and review with Dr. Mcneil. We will continue to monitor closely and make further recommendations as appropriate. Current Visit: Yes Status: Acute Priority: Medium Code(s): A41.9 - SEPSIS , UNSPECIFIED ORGANISM SNOMED Code(s): 68084917 (2) Cellulitis Current Visit: No Status: Acute Priority: Medium Code(s): L03.90 - CELLULITIS, UNSPECIFIED SNOMED Code(s): 113697252 (3) Diabetic foot ulcer associated with type 2 diabetes mellitus Current Visit: No Status: Acute Code(s): E11.621 - TYPE 2 DIABETES MELLITUS WITH FOOT ULCER SNOMED Code(s): 864049528 Time with Patient: Less than 30
[2017-10-15 10:49] LABS: Glucose,Whole Blood 175 mg/dL (75-99)
--- NOTE | 2017-10-15 11:10 | ECHOF ---
Referral Reason:Endocarditis MEASUREMENTS -------- HEIGHT: 185.4 cm WEIGHT: 149.7 kg BP: 92/52 RVIDd: 3.5 cm (< 3.3) IVSd: 1.4 cm (0.6 - 1.1) LVIDd: 5.1 cm (3.9 - 5.3) LVPWd: 1.3 cm (0.6 - 1.1) IVSs: 1.6 cm LVIDs: 3.6 cm LVPWs: 1.7 cm LA Diam: 4.3 cm (2.7 - 3.8) LAESV Index (A-L): 26.89 ml/m Ao Diam: 3.7 cm (2.0 - 3.7) AV Cusp: 2.5 cm (1.5 - 2.6) MV EXCURSION: 18.395 mm (> 18.000) MV EF SLOPE: 94 mm/s (70 - 150) EPSS: 0.7 cm MV E Crispin: 0.83 m/s MV DecT: 166 ms MV A Crispin: 0.59 m/s MV E/A Ratio: 1.40 RAP: 5.00 mmHg RVSP: 19.65 mmHg FINDINGS -------- Sinus rhythm. This was a technically adequate study. The left ventricular size is normal. There is moderate concentric left ventricular hypertrophy. O verall left ventricular systolic function is normal with, an EF between 55 - 60 %. The right ventricle is mildly enlarged. LA is midly dilated 29-33ml/m2. The right atrium is normal in size. The aortic valve is trileaflet and appears structurally normal. Mild mitral annular calcification present. Mild mitral regurgitation is present. Mild tricuspid regurgitation present. Right ventricular systolic pressure is normal at < 35 mmHg. Trace/mild (physiologic) pulmonic regurgitation. The aortic root size is normal. The inferior vena cava is mildly dilated. There is no pericardial effusion. CONCLUSIONS -------- 1. Sinus rhythm. 2. This was a technically adequate study. 3. The left ventricular size is normal. 4. There is moderate concentric left ventricular hypertrophy. 5. Overall left ventricular systolic function is normal with, an EF between 55 - 60 %. 6. The right ventricle is mildly enlarged. 7. LA is midly dilated 29-33ml/m2. 8. The right atrium is normal in size. 9. The aortic valve is trileaflet and appears structurally normal. 10. Mild mitral annular calcification present. 11. Mild mitral regurgitation is present. 12. Mild tricuspid regurgitation present. 13. Right ventricular systolic pressure is normal at < 35 mmHg. 14. Trace/mild (physiologic) pulmonic regurgitation. 15. The aortic root size is normal. 16. The inferior vena cava is mildly dilated. 17. There is no pericardial effusion. 18.Consider BETH if clinically indicated to definitively rule o ut vegatations. CARPET WINDER: Digna Shelton RDCS
--- NOTE | 2017-10-15 11:27 | P.PN ---
Subjective Progress Note Date: 10/15/17 Principal diagnosis: Acute sepsis secondary to septic arthritis of the left ankle and MSSA bacteremia. This is a 52-year-old male patient, diabetic, known history of severe peripheral neuropathy, charcoal joints and previous amputation of the right foot , partial, presenting again today to the hospital because of pain and swelling following an ankle sprain on the left. The patient had been having progressive increase in swelling and pain in the left lower extremity mainly in the ankle area and there is increase in warmth. He came into the emergency department. He was seen by orthopedic surgery. The fluid joints was aspirated and the results are still pending for now. Meanwhile he became progressively more septic and he got transferred to the intensive care unit because of increased tachycardia, tachypnea, right gutters and hypotension and diminished level of consciousness. Apparently the patient was hypoxic with a pulse ox of 80% on the floor. Upon arrival to the ICU he was placed on high flow oxygen initially at 5 L/m nasal cannula which brought his saturation above 90%. He had a temperature 104.2. His heart rate was 130s sinus. He was quite lethargic and dry. He was started on aggressive fluid resuscitation 2 L of bolus of being given right now. Blood cultures positive and I discussed the case with infectious disease and the patient will be switched to daptomycin. The patient will also go to the operating room for immediate I&D. The patient has elevated blood sugar and he will be started on insulin drip for blood sugar control. Chest x-ray post-line insertion showed some smaller lung volumes. No pneumothorax. Some early atelectatic changes in lung bases bilaterally. An art line catheter was also inserted. Subsequently blood gases showed a pH of 7.3 with a pCO2 of 47 and pO2 of 52 and the patient was placed on 100% nonrebreather facemask. On 10/11/2017, the patient is being seen in follow-up in the intensive care unit. The patient came in with a septic arthritis and sepsis to the intensive care unit. The patient was lethargic and septic looking in addition to fever tachycardia leukocytosis. He was also in acute hypoxic respiratory failure. He made resuscitation was done. Following that the patient got transferred to the operating room where the patient underwent irrigation and debridement of the left ankle joint and there was application of a wound VAC to the left ankle. The patient is currently back to the intensive care unit. This morning is awake and alert. He is following commands and answering questions. He is on high flow oxygen at 12 L/m nasal cannula and this will be gradually weaned down as the patient's oxidation is improved. Denies having any respiratory distress. He is less tachycardic compared to yesterday. He did not require any pressors. The blood cultures positive for staph aureus. The patient is currently on daptomycin. He is also on IV Zosyn. A wound VAC is applied to the left foot. His blood sugars under better control with an insulin drip. He is morbidly obese. Denies having any complaints. No chest pain. No shortness of breath. No altered mentation. No other complaints otherwise for now. His white cell count remains elevated at 20.8. He did suffer an acute kidney injury in the creatinine is up to 2. The patient continues to be an IV fluids and is producing adequate amount of urine output. The neck fluid balance is + 3.5 L over the past 24 hours. Patient was reevaluated today on 10/14/2017, remains in the ICU, hemodynamically stable, chest x-ray is showing some worsening, and he seems to be demonstrating a bit more shortness of breath. Urine output has been marginal. And his chest x-ray is showing interstitial edema could very well be noncardiogenic in nature. Hence I have recommended starting the patient on BiPAP with IPAP of 12 EPAP of 4 and I recommended a dose of Lasix 40 mg IV push. CBC showed leukocytosis but improving compared to admission and his basic metabolic profile is normal. BUN is 59 and creatinine is 2.10. Apparently his renal functioning is worsening even prior to giving him any diuretics. Patient remains on daptomycin and Zosyn as per infectious disease on the case. Reevaluated today on 10/15/2017, patient took a downhill course last night, and he required intubation and mechanical ventilation. Patient went on to develop relative hypoxemia and worsening hypercapnia, worsening chest x-ray pointing to mild ARDS based on the [place] criteria. PaO2/FiO2, was calculated to be 263 again that is pointing to a mild ARDS as per the [place] criteria. His ABG showed a pO2 of 158 pCO2 of 51 pH of 7.26 and this was on the 60% FiO2. Hence The patient on the same tidal volume which is 500 and his respiratory rate is up to 26. Noted on the ventilator and the patient was having ineffective trigger, and dyssynchrony with the ventilator, hence with slightly more sedation we corrected the problem easily. All the labs were reviewed today, WBC count of 13.6 hemoglobin is 9.6 and his basic metabolic profile was also reviewed, his creatinine is 2.0) very close to his baseline in the last few days chest x-ray was also reviewed, showing bibasilar interstitial infiltrates, but left more so than right. Nutrition was addressed, and the patient will be started on enteral feeding. Objective - Vital Signs Vital signs: Vital Signs Temp 99.1 F 10/15/17 08:00 Pulse 74 10/15/17 09:00 Resp 22 10/15/17 09:00 BP 111/52 10/14/17 17:00 Pulse Ox 98 10/15/17 09:00 Intake & Output 10/14/17 10/15/17 10/15/17 18:59 06:59 18:59 Intake Total 2548.664 3172.685 375.842 Output Total 2815 1140 300 Balance -1531.683 -78.315 75.842 Weight 162.8 kg 150.1 kg 150.1 kg Intake: IV 1262.5 910 280 Piperacillin-Tazobactam 3 102.5 .375 gm In Dextrose/Water 1 50ml.bag @ 12.5 mls/hr IVPB Q8H [facility] Rx#: [id number] Sodium Chloride 0.9% 1, 1160 910 280 000 ml @ 70 mls/hr IV . [id number] [facility] Rx#:[id number] Intake, IV Titration 20.817 151.685 95.842 Amount Insulin Regular 100 unit 20.817 42.352 23.175 In Sodium Chloride 0.9% 100 ml @ Per Protocol IV .Q0M [facility] Rx#:[id number] Labetalol 100 mg In 90 Sodium Chloride 0.9% 80 ml @ Titrate IV .Q0M [facility] Rx#:[id number] Propofol 1,000 mg In 19.333 72.667 Empty Bag 1 bag @ Titrate IV .Q0M [facility] Rx#: [id number] Output: Urine 2815 1140 300 Other: Voiding Method Indwelling Catheter Indwelling Catheter Indwelling Catheter ABP, PAP, CO, CI - Last Documented Arterial Blood Pressure 125/59 - Exam Physical Exam: Revealed a 52-year-old white male, obese, resting on mechanical ventilation, in no distress. On propofol drip. Head: Atraumatic, normocephalic. Endotracheal tube is intact HEENT:[Neck is supple.] [No neck masses.] [No thyromegaly.] [No JVD.] Chest: [Crackles and rhonchi noted at the bases, no wheezes, no chest wall tenderness.] Cardiac Exam: [Normal S1 and S2, no S3 gallop, no murmur.] Abdomen: [Obese, Soft, nontender, no megaly, no rebound, no guarding, normal bowel sounds.] Extremities: [Wound VAC has been removed, left ankle is wrapped with sterile dressing, may go back to surgery again today. Neurological Exam: Fully sedated on propofol drip, opens eyes to deep stimuli. Psychiatric: Cannot be assessed, patient is sedated. Lymphatics: No lymphadenopathy - Labs CBC & Chem 7: 10/15/17 05:00 10/15/17 05:00 Labs: Abnormal Lab Results - Last 24 Hours (Table) 10/14/17 10/14/17 10/14/17 Range/Units 12:06 12:54 14:07 WBC (3.8-10.6) k/uL RBC (4.30-5.90) m/uL Hgb (13.0-17.5) gm/dL Hct (39.0-53.0) % MCHC (31.0-37.0) g/dL Neutrophils # (1.3-7.7) k/uL Lymphocytes # (1.0-4.8) k/uL ABG pH (7.35-7.45) ABG pCO2 (35-45) mmHg ABG pO2 (83-108) mmHg ABG Total CO2 (19-24) mmol/L ABG O2 Saturation (94-97) % Chloride (98-107) mmol/L BUN (9-20) mg/dL Creatinine (0.66-1.25) mg/dL Glucose (74-99) mg/dL POC Glucose (mg/dL) 166 H 158 H 166 H (75-99) mg/dL Magnesium (1.6-2.3) mg/dL 10/14/17 10/14/17 10/14/17 Range/Units 14:58 17:14 18:13 WBC (3.8-10.6) k/uL RBC (4.30-5.90) m/uL Hgb (13.0-17.5) gm/dL Hct (39.0-53.0) % MCHC (31.0-37.0) g/dL Neutrophils # (1.3-7.7) k/uL Lymphocytes # (1.0-4.8) k/uL ABG pH (7.35-7.45) ABG pCO2 (35-45) mmHg ABG pO2 (83-108) mmHg ABG Total CO2 (19-24) mmol/L ABG O2 Saturation (94-97) % Chloride (98-107) mmol/L BUN (9-20) mg/dL Creatinine (0.66-1.25) mg/dL Glucose (74-99) mg/dL POC Glucose (mg/dL) 160 H 144 H 164 H (75-99) mg/dL Magnesium (1.6-2.3) mg/dL 10/14/17 10/14/17 10/14/17 Range/Units 19:04 19:59 20:32 WBC (3.8-10.6) k/uL RBC (4.30-5.90) m/uL Hgb (13.0-17.5) gm/dL Hct (39.0-53.0) % MCHC (31.0-37.0) g/dL Neutrophils # (1.3-7.7) k/uL Lymphocytes # (1.0-4.8) k/uL ABG pH 7.25 L (7.35-7.45) ABG pCO2 54 H (35-45) mmHg ABG pO2 (83-108) mmHg ABG Total CO2 25 H (19-24) mmol/L ABG O2 Saturation 97.4 H (94-97) % Chloride (98-107) mmol/L BUN (9-20) mg/dL Creatinine (0.66-1.25) mg/dL Glucose (74-99) mg/dL POC Glucose (mg/dL) 150 H 154 H (75-99) mg/dL Magnesium (1.6-2.3) mg/dL 10/14/17 10/14/17 10/15/17 Range/Units 21:55 23:58 00:00 WBC (3.8-10.6) k/uL RBC (4.30-5.90) m/uL Hgb (13.0-17.5) gm/dL Hct (39.0-53.0) % MCHC (31.0-37.0) g/dL Neutrophils # (1.3-7.7) k/uL Lymphocytes # (1.0-4.8) k/uL ABG pH 7.17 L* (7.35-7.45) ABG pCO2 67 H (35-45) mmHg ABG pO2 126 H (83-108) mmHg ABG Total CO2 26 H (19-24) mmol/L ABG O2 Saturation 98.4 H (94-97) % Chloride (98-107) mmol/L BUN (9-20) mg/dL Creatinine (0.66-1.25) mg/dL Glucose (74-99) mg/dL POC Glucose (mg/dL) 143 H 140 H (75-99) mg/dL Magnesium (1.6-2.3) mg/dL 10/15/17 10/15/17 10/15/17 Range/Units 02:06 04:13 05:00 WBC (3.8-10.6) k/uL RBC (4.30-5.90) m/uL Hgb (13.0-17.5) gm/dL Hct (39.0-53.0) % MCHC (31.0-37.0) g/dL Neutrophils # (1.3-7.7) k/uL Lymphocytes # (1.0-4.8) k/uL ABG pH (7.35-7.45) ABG pCO2 (35-45) mmHg ABG pO2 (83-108) mmHg ABG Total CO2 (19-24) mmol/L ABG O2 Saturation (94-97) % Chloride 110 H (98-107) mmol/L BUN 67 H (9-20) mg/dL Creatinine 2.00 H (0.66-1.25) mg/dL Glucose 139 H (74-99) mg/dL POC Glucose (mg/dL) 155 H 140 H (75-99) mg/dL Magnesium 3.0 H (1.6-2.3) mg/dL 0424/18 04/24/18 04/24/18 Range/Units 05:00 05:58 07:14 WBC 13.6 H (3.8-10.6) k/uL RBC 3.47 L (4.30-5.90) m/uL Hgb 9.6 L (13.0-17.5) gm/dL Hct 31.6 L (39.0-53.0) % MCHC 30.3 L (31.0-37.0) g/dL Neutrophils # 11.7 H (1.3-7.7) k/uL Lymphocytes # 0.9 L (1.0-4.8) k/uL ABG pH (7.35-7.45) ABG pCO2 (35-45) mmHg ABG pO2 (83-108) mmHg ABG Total CO2 (19-24) mmol/L ABG O2 Saturation (94-97) % Chloride (98-107) mmol/L BUN (9-20) mg/dL Creatinine (0.66-1.25) mg/dL Glucose (74-99) mg/dL POC Glucose (mg/dL) 138 H 121 H (75-99) mg/dL Magnesium (1.6-2.3) mg/dL 10/15/17 10/15/17 10/15/17 Range/Units 07:18 08:19 09:11 WBC (3.8-10.6) k/uL RBC (4.30-5.90) m/uL Hgb (13.0-17.5) gm/dL Hct (39.0-53.0) % MCHC (31.0-37.0) g/dL Neutrophils # (1.3-7.7) k/uL Lymphocytes # (1.0-4.8) k/uL ABG pH 7.26 L (7.35-7.45) ABG pCO2 51 H (35-45) mmHg ABG pO2 158 H (83-108) mmHg ABG Total CO2 (19-24) mmol/L ABG O2 Saturation 100.0 H (94-97) % Chloride (98-107) mmol/L BUN (9-20) mg/dL Creatinine (0.66-1.25) mg/dL Glucose (74-99) mg/dL POC Glucose (mg/dL) 162 H 157 H (75-99) mg/dL Magnesium (1.6-2.3) mg/dL 10/15/17 Range/Units 10:48 WBC (3.8-10.6) k/uL RBC (4.30-5.90) m/uL Hgb (13.0-17.5) gm/dL Hct (39.0-53.0) % MCHC (31.0-37.0) g/dL Neutrophils # (1.3-7.7) k/uL Lymphocytes # (1.0-4.8) k/uL ABG pH (7.35-7.45) ABG pCO2 (35-45) mmHg ABG pO2 (83-108) mmHg ABG Total CO2 (19-24) mmol/L ABG O2 Saturation (94-97) % Chloride (98-107) mmol/L BUN (9-20) mg/dL Creatinine (0.66-1.25) mg/dL Glucose (74-99) mg/dL POC Glucose (mg/dL) 175 H (75-99) mg/dL Magnesium (1.6-2.3) mg/dL Microbiology - Last 24 Hours (Table) 10/12/17 19:48 Anaerobic Culture - Preliminary Ankle - Left 10/12/17 19:48 Anaerobic Culture - Preliminary Ankle - Left 10/12/17 19:48 Gram Stain - Final Ankle - Left Wound Culture - Final Staph aureus 10/12/17 19:48 Gram Stain - Final Ankle - Left Wound Culture - Final Staphylococcus aureus 10/13/17 07:25 Blood Culture Gram Stain - Preliminary Blood Blood Culture - Preliminary Presumptive Staph aureus 10/13/17 08:45 Blood Culture Gram Stain - Preliminary Blood Blood Culture - Preliminary Presumptive Staph aureus 10/12/17 09:27 Gram Stain - Final Synovial Fluid Body Fluid Culture - Final Staphylococcus aureus Assessment and Plan Assessment: 1 acute septic arthritis of the left ankle, status post left ankle irrigation and debridement and the patient is postop day #3. 2 acute severe sepsis secondary to above and the blood cultures positive for MSSA 3 acute fever and chills and leukocytosis and sinus tachycardia secondary to above 4 altered mental status secondary to above, improved 5 acute hypoxic and hypercapnic respiratory failure secondary to mild ARDS with PaO2/FiO2 ratio of 263. This is relatively mild based on the [place] criteria. Nonetheless, patient required intubation and mechanical ventilation last night. 6 acute leukocytosis secondary to above 7 diabetes mellitus with elevated blood sugar secondary underlying sepsis, currently on insulin drip for blood sugar control 8 severe peripheral neuropathy 9 history of chronic wounds and ulceration in lower extremities bilaterally 10 charcoat joints 11 morbid obesity 12 hypertension, history of 13 hyperlipidemia 14 hypothyroidism 15 previous history of septic event and previous history of amputation including a partial dictation of the right foot 16 acute kidney injury related to severe sepsis Recommendation: Continue present supportive care measures, antibiotics to be adjusted as per infectious disease on the case, continue to monitor closely in the ICU, continue mechanical ventilation, nutritional support, antibiotics, follow the protocol for ventilation in ARDS. Discussed his condition with at bedside. We'll continue to follow. Critical care time is 45 minutes. Time with Patient: Greater than 30
--- NOTE | 2017-10-15 11:35 | P.NPCON ---
History of Present Illness - Reason for Consult acute renal failure - History of Present Illness Reason for consultation: Acute kidney injury History of present illness: Patient is a 52-year-old male seen in renal consultation for acute kidney injury. His baseline creatinine is near 1 and peaked at 2.1 this admission. It is 2.0 today. Patient has a long-standing history of diabetes mellitus. Patient presented to the hospital with left foot redness and swelling. He underwent aspiration and subsequently due to [place] with wound VAC placement on October 11. His fluid culture as well as blood cultures are positive for staph aureus. He is maintained on antibiotics per infectious disease recommendations. He is currently on IV cefazolin. He did not receive IV vancomycin. He has not required vasopressor support. He is currently intubated and sedated. He is noted to have a preserved ejection fraction on echocardiogram. He is maintained on normal saline at 70 mL an hour. He is nonoliguric. According to the family, he does take ibuprofen daily for back pain. He was taking metformin as well as an CHRISTIN inhibitor at home which are currently held. Vital signs are stable. General: The patient appeared well nourished and normally developed. HEENT: Head exam is unremarkable. Neck is without jugular venous distension. LUNGS: Lungs are clear to auscultation and percussion. Breath sounds decreased. HEART: Rate and Rhythm are regular. First and second heart sounds normal. No murmurs, rubs or gallops. ABDOMEN: Abdominal exam reveals normal bowel sounds. Non-tender and non- distended. No evidence of peritonitis. EXTREMITITES: Left foot wrapped. No obvious drainage. Trace edema. Past Medical History Past Medical History: Diabetes Mellitus, GERD/Reflux, Hyperlipidemia, Hypertension, Thyroid Disorder Additional Past Medical History / Comment(s): Morbid obesity, diabetic, hypertension, hyperlipidemia, hypothyroidism, previous history of right foot osteomyelitis requiring partial amputation, history of wounds in the lower extremities most recent of which was created by a boots and the patient was treated and the wound had healed, charcoal joints, hiatal hernia History of Any Multi-Drug Resistant Organisms: MRSA Date of last positivie culture/infection: 07/2014 MDRO Source:: RT FOOT Past Surgical History: Cholecystectomy, Hernia Repair, Orthopedic Surgery, Tonsillectomy Additional Past Surgical History / Comment(s): MULT. I&D RT FOOT, vasectomy, rhinoplasty, tendon surgery right wrist. Past Anesthesia/Blood Transfusion Reactions: No Reported Reaction Past Psychological History: No Psychological Hx Reported Additional Psychological History / Comment(s): and lives in the family home with his and adult children. Works for the [employer] in [employer] [facility]. No experience. No international travel. Stopped smoking several years ago. Denies alcohol abuse. No animal exposures Smoking Status: Former smoker Past Alcohol Use History: Occasional Past Drug Use History: None Reported - Past Family History Father Family Medical History: Coronary Artery Disease (CAD), Diabetes Mellitus, Renal Disease Mother Family Medical History: COPD, Diabetes Mellitus Medications and Allergies Home Medications Medication Instructions Recorded Confirmed Type Empagliflozin [Jardiance] 25 mg PO DAILY 08/10/14 10/11/17 History Ibuprofen [Motrin] 800 mg PO Q6HR PRN 08/10/14 10/11/17 History Insulin Glargine [Lantus] 100 unit SQ BID 08/10/14 10/11/17 History Lovastatin 40 mg PO HS 08/10/14 10/11/17 History metFORMIN HCL 1,000 mg PO DAILY 08/10/14 10/11/17 History Metoprolol Tartrate 25 mg PO BID 08/13/14 10/11/17 History Pregabalin [Lyrica] 100 mg PO TID 08/13/14 10/11/17 History Insulin Lispro [humaLOG] 60 units SQ AC-TID 03/28/15 10/12/17 History hydrALAZINE HCL [Apresoline] 100 mg PO BID 05/26/15 10/11/17 History Gabapentin 600 mg PO DAILY 10/11/17 10/11/17 History HYDROcodone/APAP 5-325MG [[place] 1 tab PO TID PRN 10/11/17 10/11/17 History 5-325] Levothyroxine Sodium [Synthroid] 150 mcg PO DAILY 10/11/17 10/11/17 History Ramipril 10 mg PO DAILY 10/11/17 10/11/17 History Allergies Allergy/AdvReac Type Severity Reaction Status Date / Time sulfamethoxazole AdvReac Severe Nausea, Verified 10/11/17 21:36 [From Bactrim] Dizziness, Headaches trimethoprim [From Bactrim] AdvReac Severe Nausea, Verified 10/11/17 21:36 Dizziness, Headaches Physical Exam Vitals: Vital Signs Temp Pulse Resp BP Pulse Ox 10/15/17 09:00 74 22 98 10/15/17 08:00 99.1 F 78 22 99 10/15/17 07:00 81 28 H 96 10/15/17 06:00 77 22 100 10/15/17 05:00 76 22 98 10/15/17 04:00 97.9 F 77 22 99 10/15/17 03:00 76 22 99 10/15/17 02:00 76 21 99 10/15/17 01:00 81 22 97 10/15/17 00:00 99.4 F 85 22 97 10/14/17 23:00 84 14 98 10/14/17 22:00 97 11 L 100 10/14/17 21:00 96 11 L 98 10/14/17 20:00 97.5 F L 97 31 H 91 L 10/14/17 19:00 91 25 H 96 10/14/17 18:00 96 56 H 94 L 10/14/17 17:00 95 23 111/52 96 10/14/17 16:00 99.3 F 98 22 111/52 93 L 10/14/17 15:00 86 16 98/53 99 10/14/17 14:00 87 14 106/52 99 10/14/17 13:00 82 12 95/53 100 10/14/17 12:00 98.7 F 82 13 93/48 98 Intake and Output 10/14/17 10/15/17 10/15/17 22:59 06:59 14:59 Intake Total 791.452 657.733 375.842 Output Total 1760 430 300 Balance -968.548 227.733 75.842 Intake: IV 667.5 630 280 Piperacillin-Tazobactam 3 37.5 .375 gm In Dextrose/Water 1 50ml.bag @ 12.5 mls/hr IVPB Q8H [facility] Rx#: [id number] Sodium Chloride 0.9% 1, 630 630 280 000 ml @ 70 mls/hr IV . [id number] [facility] Rx#:[id number] Intake, IV Titration 123.952 27.733 95.842 Amount Insulin Regular 100 unit 33.952 8.4 23.175 In Sodium Chloride 0.9% 100 ml @ Per Protocol IV .Q0M [facility] Rx#:[id number] Labetalol 100 mg In 90 Sodium Chloride 0.9% 80 ml @ Titrate IV .Q0M [facility] Rx#:[id number] Propofol 1,000 mg In 19.333 72.667 Empty Bag 1 bag @ Titrate IV .Q0M [facility] Rx#: [id number] Output: Urine 1760 430 300 Other: Voiding Method Indwelling Catheter Indwelling Catheter Indwelling Catheter Weight 150.1 kg 150.1 kg ABP, PAP, CO, CI - Last 8 Hours Arterial Blood Pressure 125/59 Arterial Blood Pressure 121/55 Arterial Blood Pressure 129/64 Arterial Blood Pressure 92/52 Arterial Blood Pressure 100/55 Arterial Blood Pressure 95/54 Results - Lab Results Most recent lab results ABG pH 7.26 (7.35-7.45) L 10/15/17 07:18 ABG pCO2 51 mmHg (35-45) H 10/15/17 07:18 ABG pO2 158 mmHg (83-108) H 10/15/17 07:18 ABG HCO3 23 mmol/L (21-25) 10/15/17 07:18 ABG O2 Saturation 100.0 % (94-97) H 10/15/17 07:18 Calcium 8.5 mg/dL (8.4-10.2) 10/15/17 05:00 Phosphorus 4.3 mg/dL (2.5-4.5) 10/15/17 05:00 Magnesium 3.0 mg/dL (1.6-2.3) H 10/15/17 05:00 10/15/17 05:00 10/15/17 05:00 Assessment and Plan Plan: Assessment: #1. Nonoliguric acute kidney injury secondary to ATN secondary to severe sepsis and hemodynamic instability. His blood pressures have been quite labile ranging from systolic 90s to 180s. #2. Severe sepsis secondary to septic arthritis. Fluid culture as well as blood culture positive for staph aureus. #3. Insulin-dependent diabetes mellitus. #4. Acute hypercapnic respiratory failure. Currently on ventilator. #5. Respiratory acidosis and metabolic acidosis. Concern for ARDS. Plan: Continue normal saline at 70 mL an hour. Check urinalysis. Antibiotics per infectious disease recommendations. Avoid nephrotoxic agents and hypotensive episodes. Continue to monitor renal function and urine output. I would repeat a dose of Lasix if becomes oliguric. Wean FiO2. Thank you for the consultation. I will continue to follow the patient with you during his hospital stay.
[2017-10-15 11:56] LABS: Glucose,Whole Blood 158 mg/dL (75-99)
[2017-10-15 11:56] LABS: Appearance,Urine Clear (Clear); Bilirubin,Urine Negative (Negative); Blood,Urine Small (Negative); Color,Urine Yellow; Glucose,Urine (UA) 3+ (Negative); Ketones,Urine Negative (Negative); Leukocyte Esterase,Urine Negative (Negative); Mucus,Urine Rare /hpf; Nitrite,Urine Negative (Negative); Protein,Urine 1+ (Negative); RBC,Urine <1 /hpf (0-5); Specific Gravity,Urine 1.018 (1.001-1.035); Urobilinogen,Urine <2.0 mg/dL (<2.0); WBC,Urine 3 /hpf (0-5)
[2017-10-15 12:59] LABS: Glucose,Whole Blood 158 mg/dL (75-99)
[2017-10-15 13:53] LABS: Glucose,Whole Blood 180 mg/dL (75-99)
[2017-10-15 15:05] LABS: Glucose,Whole Blood 183 mg/dL (75-99)
[2017-10-15 16:09] LABS: Glucose,Whole Blood 176 mg/dL (75-99)
[2017-10-15 18:24] LABS: Glucose,Whole Blood 206 mg/dL (75-99)
[2017-10-15 19:54] LABS: Glucose,Whole Blood 135 mg/dL (75-99)
--- NOTE | 2017-10-15 20:53 | PN ---
PROGRESS NOTE DATE OF SERVICE: 10/15/2017 PRESENTING COMPLAINT: Intubated. This is a patient admitted with septic arthritis of the left ankle, status post I and D. Cultures are growing MSSA. The patient's pulmonary status is worsened last night and the patient had to be intubated. The patient is on the ventilator and pressure support and sedatives. Telemetry shows sinus rhythm. Left foot wound remains on a wound VAC. The patient remains on broad-spectrum antibiotics. REVIEW OF SYSTEMS: Patient is intubated. CURRENT MEDICATIONS: Reviewed that include: 1. IV Ancef. 2. Insulin drip. 3. Propofol. 4. Levophed. EXAMINATION: Fever is coming down. Temperature 97.9, pulse 77, respirations 22, blood pressure 95/54. The FiO2 is 75%. GENERAL APPEARANCE: Lying in bed, intubated. EYES: Pupils equal. Conjunctivae normal. HEENT: External nose and ears normal. Oral cavity: Endotracheal tube in place. NECK: JVD unable to assess. Mass not palpable. RESPIRATORY: Effort increased. LUNGS: Decreased breath sounds. CARDIOVASCULAR: First and second sounds normal. No edema. ABDOMEN: Distended, soft. Liver and spleen not palpable. EXTREMITIES: Left ankle with a wound VAC in place. INVESTIGATIONS: White count 13.6, hemoglobin 9.6. Blood gas showed a pH of 7.26, pCO2 of 51, PO2 of 100%. BUN 67, creatinine 2.0. The patient's blood cultures also growing Staph aureus. ASSESSMENT: 1. Septic arthritis of the left ankle, present on admission causing severe sepsis, status post I and D with wound and blood cultures both growing methicillin- sensitive Staphylococcus aureus .. 2. Acute delirium and septic encephalopathy, present on admission. 3. Prior history of right foot osteomyelitis with ray amputation in 2016. 4. Gastroesophageal reflux disease. 5. Hypotensive shock. Patient requiring pressor support. 6. History of essential hypertension. 7. Diabetes mellitus type 2, uncontrolled with hyperglycemia, currently on insulin drip. 8. Hypothyroid. 9. Peripheral neuropathy from diabetes. 10.Hiatal hernia. 11.Hyperlipidemia. 12.Morbid obesity, BMI of 42.9. 13.Moderate acute respiratory distress syndrome from underlying sepsis leading to acute hypoxic respiratory failure, now requiring ventilator support. 14.Acute renal failure from acute tubular necrosis from sepsis, slow to respond. 15.Left ankle Charcot joint. PLAN: The patient is on IV Ancef, other supportive care. I did discuss with Dr. Mi, who in turn has spoken probably to Dr. Mcneil. The patient may need to be taken back to the OR to clean out the joint more. I did speak to patient's yesterday. She is currently not at the bedside. MMODL / RAMÓNN: [id number] /
[2017-10-15] MEDS: ATORVASTATIN 40 MG TAB PO SCH (21:06)
[2017-10-15 22:09] LABS: Glucose,Whole Blood 140 mg/dL (75-99)
--- NOTE | 2017-10-15 23:20 | P.PN ---
Subjective Progress Note Date: 10/15/17 Principal diagnosis: Sepsis 52-year-old male has a long-standing history of diabetes mellitus type 2 poorly controlled and history of a prior diabetic foot ulceration to the right foot which resulted in a great toe amputation. The patient is been having some difficulties with his left ankle and following with the orthopedic surgeon. Because of some discomfort at the joint he was measured and given a new bracing device for the foot and ankle. However grommet on the dorsum of the foot resulted in a bit of an ulcer and he was concerned and sought care in the office. The patient had difficulty making the appointment because of the weather and has significant distance from work to the office and reschedule. When he came to the office earlier this week the ulceration had healed and he was feeling better but was still having some swelling to the ankle area. He had no fever or chills at the time of presentation to the office, but did have the swelling to the ankle area for which she had a specialty boot that have been designed that he was not wearing that day. He however presents to the emergency center because of the sudden onset of inability to bear weight to the ankle because of the amount of pain that he started to have. Shortly thereafter he became febrile and has had a rapid decline in his status with evidence of sepsis and presentation to the intensive care unit. The case is discussed with the protective services case worker as well as the orthopedic foot and ankle specialist. Given his rapid decline in status he'll go to the operating room this afternoon. The patient is acutely ill with fever chills generalized weakness and malaise and some alteration of his mental status 10/13/2017 patient remains in intensive care unit with ongoing sepsis. Appears to have acute lung injury and also has an elevation of his creatinine likely with an acute renal injury also occurring from his sepsis. Laboratories revealed evidence of staph aureus await final susceptibility. Follow blood cultures in process reasonable cultures are positive. Patient continues to have some ongoing fevers and is admitted of nausea with the response to Zofran. He is still in a warm flushed phase of sepsis and hopefully now that he has been resuscitated will have further improvement of his status. 10/14/2017 patient does have some improvement today. He is not hypotensive not requiring vasopressors but is still on high flow oxygen for his acute lung injury. He has had fevers but down to 99.9 still feels poorly and has significant pain of the left foot and ankle area. 10/15/2017 the patient had deterioration of his respiratory status last night with his acute lung injury and developing early ARDS. He required intubation with sedation and mechanical ventilation. With improved sedation he is quite comfortable today and is synchronous with the vent with adequate oxygenation and improved blood gas. The patient is quite comfortable at this time and receiving tube feeds for his nutritional needs. Fever and leukocytosis are trending down Objective - Vital Signs Vital signs: Vital Signs Temp 99.9 F H 10/15/17 20:00 Pulse 86 10/15/17 23:00 Resp 28 H 10/15/17 23:00 BP 111/52 10/14/17 17:00 Pulse Ox 95 10/15/17 23:00 Intake & Output 10/15/17 10/15/17 10/16/17 06:59 18:59 06:59 Intake Total 9484.668 3941.904 400 Output Total 1140 1430 750 Balance -78.315 -278.096 -350 Weight 150.1 kg 150.1 kg Intake: IV 910 770 280 Sodium Chloride 0.9% 1, 910 770 280 000 ml @ 70 mls/hr IV . [id number] [facility] Rx#:[id number] Intake, IV Titration 151.685 311.904 Amount Insulin Regular 100 unit 42.352 39.237 In Sodium Chloride 0.9% 100 ml @ Per Protocol IV .Q0M [facility] Rx#:[id number] Labetalol 100 mg In 90 Sodium Chloride 0.9% 80 ml @ Titrate IV .Q0M [facility] Rx#:[id number] Propofol 1,000 mg In 19.333 272.667 Empty Bag 1 bag @ Titrate IV .Q0M [facility] Rx#: [id number] Tube Feeding 70 120 Output: Urine 1140 1430 750 Other: Voiding Method Indwelling Catheter Indwelling Catheter Indwelling Catheter ABP, PAP, CO, CI - Last Documented Arterial Blood Pressure 118/63 - Exam 52-year-old male presents to Hospital feeling acutely ill found to have evidence of fever and then rapidly developed sepsis HEENT: Anicteric conjunctiva are pink and moist nasal mucosa grossly intact without significant lesions, patient is now intubated and sedated Neck: The neck is supple without significant lymphadenopathy or thyromegaly. Lungs: Good bilateral air entry without significant crackles or wheezing. There is no significant bronchial sounds. There is no egophony or dullness. Heart: Tachycardic but regular with an audible S1 and S2 soft S4 There is no significant murmur click or rub, PMI was nondisplaced. Abdomen: Obese Positive bowel sounds soft and nontender without palpable masses or organomegaly. There was no guarding or rebound. Extremities: The upper extremities have excellent pulses they are symmetric, no significant petechiae or telangiectasia. No splinter hemorrhages were noted. Right lower extremity has evidence of the prior great toe amputation which is well healed. Left lower extremity reveals evidence of the surgical incision and drainage performed the continues evidence of some murky drainage. The ankle continues to remain swollen and there is evidence of some warmth and erythema to the lateral aspect of the ankle. It appears to have discomfort upon range of motion. There is no inguinal lymphadenopathy. Neuro: Sedated and mechanically ventilated - Labs CBC & Chem 7: 10/15/17 05:00 10/15/17 05:00 Labs: Abnormal Lab Results - Last 24 Hours (Table) 10/14/17 10/15/17 10/15/17 Range/Units 23:58 00:00 02:06 WBC (3.8-10.6) k/uL RBC (4.30-5.90) m/uL Hgb (13.0-17.5) gm/dL Hct (39.0-53.0) % MCHC (31.0-37.0) g/dL Neutrophils # (1.3-7.7) k/uL Lymphocytes # (1.0-4.8) k/uL ABG pH 7.17 L* (7.35-7.45) ABG pCO2 67 H (35-45) mmHg ABG pO2 126 H (83-108) mmHg ABG Total CO2 26 H (19-24) mmol/L ABG O2 Saturation 98.4 H (94-97) % Chloride (98-107) mmol/L BUN (9-20) mg/dL Creatinine (0.66-1.25) mg/dL Glucose (74-99) mg/dL POC Glucose (mg/dL) 140 H 155 H (75-99) mg/dL Magnesium (1.6-2.3) mg/dL Urine Protein (Negative) Urine Glucose (UA) (Negative) Urine Blood (Negative) Urine Mucus (None) /hpf 10/15/17 10/15/17 10/15/17 Range/Units 04:13 05:00 05:00 WBC 13.6 H (3.8-10.6) k/uL RBC 3.47 L (4.30-5.90) m/uL Hgb 9.6 L (13.0-17.5) gm/dL Hct 31.6 L (39.0-53.0) % MCHC 30.3 L (31.0-37.0) g/dL Neutrophils # 11.7 H (1.3-7.7) k/uL Lymphocytes # 0.9 L (1.0-4.8) k/uL ABG pH (7.35-7.45) ABG pCO2 (35-45) mmHg ABG pO2 (83-108) mmHg ABG Total CO2 (19-24) mmol/L ABG O2 Saturation (94-97) % Chloride 110 H (98-107) mmol/L BUN 67 H (9-20) mg/dL Creatinine 2.00 H (0.66-1.25) mg/dL Glucose 139 H (74-99) mg/dL POC Glucose (mg/dL) 140 H (75-99) mg/dL Magnesium 3.0 H (1.6-2.3) mg/dL Urine Protein (Negative) Urine Glucose (UA) (Negative) Urine Blood (Negative) Urine Mucus (None) /hpf 10/15/17 10/15/17 10/15/17 Range/Units 05:58 07:14 07:18 WBC (3.8-10.6) k/uL RBC (4.30-5.90) m/uL Hgb (13.0-17.5) gm/dL Hct (39.0-53.0) % MCHC (31.0-37.0) g/dL Neutrophils # (1.3-7.7) k/uL Lymphocytes # (1.0-4.8) k/uL ABG pH 7.26 L (7.35-7.45) ABG pCO2 51 H (35-45) mmHg ABG pO2 158 H (83-108) mmHg ABG Total CO2 (19-24) mmol/L ABG O2 Saturation 100.0 H (94-97) % Chloride (98-107) mmol/L BUN (9-20) mg/dL Creatinine (0.66-1.25) mg/dL Glucose (74-99) mg/dL POC Glucose (mg/dL) 138 H 121 H (75-99) mg/dL Magnesium (1.6-2.3) mg/dL Urine Protein (Negative) Urine Glucose (UA) (Negative) Urine Blood (Negative) Urine Mucus (None) /hpf 10/15/17 10/15/17 10/15/17 Range/Units 08:19 09:11 10:48 WBC (3.8-10.6) k/uL RBC (4.30-5.90) m/uL Hgb (13.0-17.5) gm/dL Hct (39.0-53.0) % MCHC (31.0-37.0) g/dL Neutrophils # (1.3-7.7) k/uL Lymphocytes # (1.0-4.8) k/uL ABG pH (7.35-7.45) ABG pCO2 (35-45) mmHg ABG pO2 (83-108) mmHg ABG Total CO2 (19-24) mmol/L ABG O2 Saturation (94-97) % Chloride (98-107) mmol/L BUN (9-20) mg/dL Creatinine (0.66-1.25) mg/dL Glucose (74-99) mg/dL POC Glucose (mg/dL) 162 H 157 H 175 H (75-99) mg/dL Magnesium (1.6-2.3) mg/dL Urine Protein (Negative) Urine Glucose (UA) (Negative) Urine Blood (Negative) Urine Mucus (None) /hpf 10/15/17 10/15/17 10/15/17 Range/Units 11:30 11:55 12:58 WBC (3.8-10.6) k/uL RBC (4.30-5.90) m/uL Hgb (13.0-17.5) gm/dL Hct (39.0-53.0) % MCHC (31.0-37.0) g/dL Neutrophils # (1.3-7.7) k/uL Lymphocytes # (1.0-4.8) k/uL ABG pH (7.35-7.45) ABG pCO2 (35-45) mmHg ABG pO2 (83-108) mmHg ABG Total CO2 (19-24) mmol/L ABG O2 Saturation (94-97) % Chloride (98-107) mmol/L BUN (9-20) mg/dL Creatinine (0.66-1.25) mg/dL Glucose (74-99) mg/dL POC Glucose (mg/dL) 158 H 158 H (75-99) mg/dL Magnesium (1.6-2.3) mg/dL Urine Protein 1+ H (Negative) Urine Glucose (UA) 3+ H (Negative) Urine Blood Small H (Negative) Urine Mucus Rare H (None) /hpf 10/15/17 10/15/17 10/15/17 Range/Units 13:51 15:03 16:07 WBC (3.8-10.6) k/uL RBC (4.30-5.90) m/uL Hgb (13.0-17.5) gm/dL Hct (39.0-53.0) % MCHC (31.0-37.0) g/dL Neutrophils # (1.3-7.7) k/uL Lymphocytes # (1.0-4.8) k/uL ABG pH (7.35-7.45) ABG pCO2 (35-45) mmHg ABG pO2 (83-108) mmHg ABG Total CO2 (19-24) mmol/L ABG O2 Saturation (94-97) % Chloride (98-107) mmol/L BUN (9-20) mg/dL Creatinine (0.66-1.25) mg/dL Glucose (74-99) mg/dL POC Glucose (mg/dL) 180 H 183 H 176 H (75-99) mg/dL Magnesium (1.6-2.3) mg/dL Urine Protein (Negative) Urine Glucose (UA) (Negative) Urine Blood (Negative) Urine Mucus (None) /hpf 10/15/17 10/15/17 10/15/17 Range/Units 18:23 19:52 22:07 WBC (3.8-10.6) k/uL RBC (4.30-5.90) m/uL Hgb (13.0-17.5) gm/dL Hct (39.0-53.0) % MCHC (31.0-37.0) g/dL Neutrophils # (1.3-7.7) k/uL Lymphocytes # (1.0-4.8) k/uL ABG pH (7.35-7.45) ABG pCO2 (35-45) mmHg ABG pO2 (83-108) mmHg ABG Total CO2 (19-24) mmol/L ABG O2 Saturation (94-97) % Chloride (98-107) mmol/L BUN (9-20) mg/dL Creatinine (0.66-1.25) mg/dL Glucose (74-99) mg/dL POC Glucose (mg/dL) 206 H 135 H 140 H (75-99) mg/dL Magnesium (1.6-2.3) mg/dL Urine Protein (Negative) Urine Glucose (UA) (Negative) Urine Blood (Negative) Urine Mucus (None) /hpf Microbiology - Last 24 Hours (Table) 10/15/17 05:15 Gram Stain - Preliminary Sputum Sputum Culture - Preliminary 10/12/17 19:48 Anaerobic Culture - Preliminary Ankle - Left 10/12/17 19:48 Anaerobic Culture - Preliminary Ankle - Left Laboratory Results WBC 13.6 k/uL (3.8-10.6) H 10/15/17 05:00 RBC 3.47 m/uL (4.30-5.90) L 10/15/17 05:00 Hgb 9.6 gm/dL (13.0-17.5) L 10/15/17 05:00 Hct 31.6 % (39.0-53.0) L 10/15/17 05:00 MCV 91.1 fL (80.0-100.0) 10/15/17 05:00 MCH 27.6 pg (25.0-35.0) 10/15/17 05:00 MCHC 30.3 g/dL (31.0-37.0) L 10/15/17 05:00 RDW 13.9 % (11.5-15.5) 10/15/17 05:00 Plt Count 231 k/uL (150-450) 10/15/17 05:00 Neutrophils % 86 % 10/15/17 05:00 Lymphocytes % 6 % 10/15/17 05:00 Monocytes % 5 % 10/15/17 05:00 Eosinophils % 1 % 10/15/17 05:00 Basophils % 0 % 10/15/17 05:00 Neutrophils # 11.7 k/uL (1.3-7.7) H 10/15/17 05:00 Lymphocytes # 0.9 k/uL (1.0-4.8) L 10/15/17 05:00 Monocytes # 0.7 k/uL (0-1.0) 10/15/17 05:00 Eosinophils # 0.1 k/uL (0-0.7) 10/15/17 05:00 Basophils # 0.0 k/uL (0-0.2) 10/15/17 05:00 Hypochromasia Moderate 10/15/17 05:00 ESR 25 mm/hr (0-15) H 10/12/17 07:29 Sample Site a-line 10/15/17 07:18 ABG pH 7.26 (7.35-7.45) L 10/15/17 07:18 ABG pCO2 51 mmHg (35-45) H 10/15/17 07:18 ABG pO2 158 mmHg (83-108) H 10/15/17 07:18 ABG HCO3 23 mmol/L (21-25) 10/15/17 07:18 ABG Total CO2 24 mmol/L (19-24) 10/15/17 07:18 ABG O2 Saturation 100.0 % (94-97) H 10/15/17 07:18 ABG Base Excess -4.3 mmol/L 10/15/17 07:18 Cr Test Yes 10/15/17 07:18 ABG Lactic Acid 1.0 mmol/L (0.5-1.6) 10/12/17 18:06 FiO2 60 % 10/15/17 07:18 Sodium 144 mmol/L (137-145) 10/15/17 05:00 Potassium 4.5 mmol/L (3.5-5.1) 10/15/17 05:00 Chloride 110 mmol/L (98-107) H 10/15/17 05:00 Carbon Dioxide 23 mmol/L (22-30) 10/15/17 05:00 Anion Gap 11 mmol/L 10/15/17 05:00 BUN 67 mg/dL (9-20) H 10/15/17 05:00 Creatinine 2.00 mg/dL (0.66-1.25) H 10/15/17 05:00 Est GFR (CKD-EPI)AfAm 43 (>60 ml/min/1.73 sqM) 10/15/17 05:00 Est GFR (CKD-EPI)NonAf 37 (>60 ml/min/1.73 sqM) 10/15/17 05:00 Glucose 139 mg/dL (74-99) H 10/15/17 05:00 POC Glucose (mg/dL) 140 mg/dL (75-99) H 10/15/17 22:07 POC Glu [employer] L[employer] ID Perez Quevedo 10/15/17 22:[address] Glu mg/dL 214 10/12/17 07:29 Hemoglobin A1c 9.1 % (4.0-6.0) H 10/12/17 07:29 Plasma Lactic Acid Ron 1.5 mmol/L (0.7-2.0) 10/11/17 21:10 Uric Acid 5.6 mg/dL (3.5-8.5) 10/11/17 21:10 Calcium 8.5 mg/dL (8.4-10.2) 10/15/17 05:00 Phosphorus 4.3 mg/dL (2.5-4.5) 10/15/17 05:00 Magnesium 3.0 mg/dL (1.6-2.3) H 10/15/17 05:00 AST 96 U/L (17-59) H 10/13/17 19:55 ALT 58 U/L (21-72) 10/13/17 19:55 C-Reactive Protein 45.1 mg/L (<10.0) H 10/11/17 21:10 Urine Color Yellow 10/15/17 11:30 Urine Appearance Clear (Clear) 10/15/17 11:30 Urine pH 6.0 (5.0-8.0) 10/15/17 11:30 Ur Specific [place] 1.018 (1.001-1.035) 10/15/17 11:30 Urine Protein 1+ (Negative) H 10/15/17 11:30 Urine Glucose (UA) 3+ (Negative) H 10/15/17 11:30 Urine Ketones Negative (Negative) 10/15/17 11:30 Urine Blood Small (Negative) H 10/15/17 11:30 Urine Nitrite Negative (Negative) 10/15/17 11:30 Urine Bilirubin Negative (Negative) 10/15/17 11:30 Urine Urobilinogen <2.0 mg/dL (<2.0) 10/15/17 11:30 Ur Leukocyte Esterase Negative (Negative) 10/15/17 11:30 Urine RBC <1 /hpf (0-5) 10/15/17 11:30 Urine WBC 3 /hpf (0-5) 10/15/17 11:30 Urine Mucus Rare /hpf (None) H 10/15/17 11:30 Microbiology 10/15/17 05:15 Sputum Gram Stain - Preliminary 10/15/17 05:15 Sputum Sputum Culture - Preliminary 10/12/17 19:48 Ankle - Left Anaerobic Culture - Preliminary 10/12/17 19:48 Ankle - Left Anaerobic Culture - Preliminary 10/12/17 19:48 Ankle - Left Gram Stain - Final 10/12/17 19:48 Ankle - Left Wound Culture - Final Staph aureus 10/12/17 19:48 Ankle - Left Gram Stain - Final 10/12/17 19:48 Ankle - Left Wound Culture - Final Staphylococcus aureus 10/13/17 07:25 Blood Blood Culture Gram Stain - Preliminary 10/13/17 07:25 Blood Blood Culture - Preliminary Presumptive Staph aureus 10/13/17 08:45 Blood Blood Culture Gram Stain - Preliminary 10/13/17 08:45 Blood Blood Culture - Preliminary Presumptive Staph aureus 10/12/17 09:27 Synovial Fluid Gram Stain - Final 10/12/17 09:27 Synovial Fluid Body Fluid Culture - Final Staphylococcus aureus 10/13/17 07:25 Blood Blood Culture - Final 10/13/17 08:45 Blood Blood Culture - Final 10/11/17 21:15 Blood Blood Culture Gram Stain - Final 10/11/17 21:15 Blood Blood Culture - Final Staphylococcus aureus 10/11/17 21:15 Blood Blood Culture - Final Assessment and Plan (1) Septic arthritis of left ankle Narrative/Plan: 52-year-old male presents the emergency center with inability to bear weight to his left ankle. The patient has had some new orthotic boot manufactured in a developed a small ulcer on the dorsum of the left foot. This apparently was from a grommet from an orthotic. This was completely healed and was evaluated but was still having ongoing difficulties with ankle area. Is actively following up with orthopedic foot and ankle. The patient does have a boot that was designed that he was not wearing when he came to the office and understands it is important that he wears this when he is at work to protect his ankle from the Charcot changes. Patient however now has high-grade fever chills leukocytosis and laboratories: Positive blood culture with gram-positive cocci. The patient did have aspiration per orthopedic ankle grossly purulent material was found. Originally the plan was to go to the operating him in the morning but as the patient felt worsening sepsis he is no scheduled operating room this afternoon for the incision and drainage of this abscess. Deep cultures and pathology will also be sent. Antibiotic therapy is altered from vancomycin to daptomycin. In hopes to have a more rapid bacteriocidal activity given his rapidly declining status. Enhance glucose control be important part of his healing. Leukocytosis record related to his current sepsis. There is evidence of possible culture and he will require follow blood cultures in the morning. He was monitored for any persistence of his bacteremia. There will be a coordinated effort between orthopedic ankle and infectious disease as to the care at discharge. 10/13/2017 reveals the patient still needs intensive care unit after surgery with ongoing sepsis. Continues to have fever and leukocytosis and difficulties with acute lung injury and now elevated creatinine to 2.0. Patient continues to be resuscitated and has had some improvement but minimal at this point in time. He will continue with maneuvers to improve his fever maintain his hydration and antibiotic therapy continues with daptomycin for both staph aureus and MRSA, blood culture and aspirate from the ankle are still showing staph aureus final susceptibility is pending. Patient aware that if he improves he will be receiving a jg completed a long course of IV antibiotic therapy for this extensive infection. Leukocytosis directly related to the sepsis 10/14/2017 the patient remains in intensive care unit, high flow oxygen is being utilized for his acute lung injury. His creatinine has increased further is now 2.0. Urine output is adequate. He is symptomatically stable is having difficulties with shortness of breath. Pain at the foot and ankle is predictable but the significant swelling history improving after surgical incision and drainage. Ulceration is treated with a medical history dressing. If there is no further marked improvement by tomorrow the patient will likely go back to the operating him for further incision and drainage to the site. The case is discussed with the orthopedic surgeon. 10/15/2017 the patient is noted had a decline of his status and his required intubation with sedation mechanical ventilation and is now much more comfortable. His pulmonary status is improved with the intervention. He has not requiring vasopressor therapy. We'll do blood cultures verified MSSA and antibiotic therapy was transitioned to high dose cefazolin. The patient is evaluated in conjunction with the orthopedic surgeon and the plan is for the patient to have further debridement of the ankle tomorrow to ensure there is complete drainage of any abscess at that joint site given the progression of his underlying illness. Fortunately he has not hemodynamic stable and is having improvement of his leukocytosis. We'll expect as a sepsis improves his pulmonary injury will improve also. His creatinine peaked at 2.10 now down to 2.0 and nephrology has evaluated. Follow blood cultures to ensure clearance of his bacteremia. Echocardiogram without evidence of vegetations. Is not the case is discussed with the orthopedic surgeon as well as the patient' s . Current Visit: Yes Status: Acute Code(s): M00.9 - PYOGENIC ARTHRITIS, UNSPECIFIED SNOMED Code(s): 70312187 (2) Sepsis Current Visit: Yes Status: Acute Priority: Medium Code(s): A41.9 - SEPSIS , UNSPECIFIED ORGANISM SNOMED Code(s): 08655044 (3) Poorly controlled type 2 diabetes mellitus with complication Current Visit: Yes Status: Acute Code(s): E11.8 - TYPE 2 DIABETES MELLITUS WITH UNSPECIFIED COMPLICATIONS; E11.65 - TYPE 2 DIABETES MELLITUS WITH HYPERGLYCEMIA SNOMED Code(s): 73093098
[2017-10-15 23:57] LABS: Glucose,Whole Blood 138 mg/dL (75-99)
[2017-10-16] MEDS: HEPARIN SODIUM,PORCINE 5,000 UNIT/ML 1 ML VIAL SQ SCH ×3 (00:15→15:17)
[2017-10-16] MEDS: ceFAZolin IN SWFI 2 GM/20 ML SYRINGE IVP SCH ×3 (00:15→15:16)
[2017-10-16 02:06] LABS: Glucose,Whole Blood 137 mg/dL (75-99)
[2017-10-16] MEDS: SODIUM CHLORIDE 0.9% 1,000 ML IV SCH (03:10)
[2017-10-16 03:59] LABS: Glucose,Whole Blood 113 mg/dL (75-99)
[2017-10-16] MEDS: PROPOFOL 1,000 MG in EMPTY BAG 1 BAG IV SCH ×9 (04:10→23:09)
[2017-10-16] MEDS: MORPHINE SULFATE 4 MG/0.8 ML SYRINGE (INJ) IVP PRN ×2 (04:25→22:17)
[2017-10-16 05:19] LABS: Basophils % (A) 0 %; Eosinophils # (A) 0.1 k/uL (0-0.7); Eosinophils % (A) 1 %; HCT 31.3 % (39.0-53.0); HGB 9.9 gm/dL (13.0-17.5); Lymphocytes # (A) 1.1 k/uL (1.0-4.8); Lymphocytes % (A) 9 %; MCH 28.4 pg (25.0-35.0); MCHC 31.7 g/dL (31.0-37.0); MCV 89.5 fL (80.0-100.0); Mean Platelet Volume 8.2; Monocytes # (A) 0.9 k/uL (0-1.0); Monocytes % (A) 7 %; Neutrophils # (A) 10.2 k/uL (1.3-7.7); Neutrophils % (A) 81 %; Platelet Count 285 k/uL (150-450); WBC 12.6 k/uL (3.8-10.6)
[2017-10-16 05:47] LABS: Calcium 8.8 mg/dL (8.4-10.2); Magnesium 2.7 mg/dL (1.6-2.3); Phosphorus 2.9 mg/dL (2.5-4.5); Potassium 4.1 mmol/L (3.5-5.1)
[2017-10-16] MEDS: LEVOTHYROXINE 75 MCG TAB PO SCH (06:40)
[2017-10-16 06:46] LABS: Glucose,Whole Blood 134 mg/dL (75-99)
--- NOTE | 2017-10-16 07:07 | XR ---
EXAMINATION TYPE: XR chest 1V portable DATE OF EXAM: 10/16/2017 COMPARISON: 10/15/2017 HISTORY: Shortness of breath FINDINGS: There are bilateral pleural effusions with cardiomegaly and bibasilar infiltrate. There is a diffuse interstitial pattern. ET, NG tube and central line stable. IMPRESSION: 1. Stable chest x-ray correlate diffuse lung disease. Differential diagnosis would include CHF and di ffuse pneumonia.
[2017-10-16 07:37] LABS: ABG Base Excess -2.4 mmol/L; ABG HCO3 23 mmol/L (21-25); ABG Oxygen Saturation 98.3 % (94-97); ABG PCO2 40 mmHg (35-45); ABG PH 7.37 (7.35-7.45); ABG PO2 104 mmHg (83-108); ABG TCO2 24 mmol/L (19-24)
[2017-10-16 08:03] LABS: Glucose,Whole Blood 161 mg/dL (75-99)
[2017-10-16] MEDS: NON-FORMULARY DRUG (Empagliflozin [Jardiance] 25 MG) PO SCH (08:03)
[2017-10-16] MEDS: GABAPENTIN 300 MG CAP PO SCH (08:07)
[2017-10-16] MEDS: CHLORHEXIDINE GLUCONATE 15 ML CUP MUCOUS MEM SCH ×2 (08:07→20:31)
[2017-10-16] MEDS: METOPROLOL TARTRATE 25 MG TAB PO SCH ×2 (08:07→20:31)
[2017-10-16] MEDS: PANTOPRAZOLE 40 MG/10 ML VIAL IV SCH (08:08)
--- NOTE | 2017-10-16 09:46 | P.PN ---
Subjective Patient is seen in follow-up for acute kidney injury. Creatinine peaked at 2.1 this admission and is down to 1.28 today. Sodium level is up to 149. He remains intubated and sedated. He is currently being treated for septic arthritis. Cultures are positive for staph species. He's scheduled to undergo another incision and drainage today. He is nonoliguric. Hemodynamically stable. Vital signs are stable. General: The patient appeared well nourished and normally developed. Intubated. HEENT: Head exam is unremarkable. Neck is without jugular venous distension. LUNGS: Lungs are clear to auscultation and percussion. Breath sounds decreased. HEART: Rate and Rhythm are regular. First and second heart sounds normal. No murmurs, rubs or gallops. ABDOMEN: Abdominal exam reveals normal bowel sounds. Non-tender and non- distended. No evidence of peritonitis. EXTREMITITES: 1+ edema. Left foot wrapped. Objective - Vital Signs Vital signs: Vital Signs Temp 99.3 F 10/16/17 08:00 Pulse 83 10/16/17 09:00 Resp 26 H 10/16/17 09:00 BP 111/52 10/14/17 17:00 Pulse Ox 97 10/16/17 09:00 Intake & Output 10/15/17 10/16/17 10/16/17 18:59 06:59 18:59 Intake Total 4764.581 1678.472 170 Output Total 1430 1950 650 Balance -278.096 -725.528 -480 Weight 150.1 kg 160.3 kg 160.3 kg Intake: IV 770 840 70 Sodium Chloride 0.9% 1, 770 840 70 000 ml @ 70 mls/hr IV . [id number] [facility] Rx#:[id number] Intake, IV Titration 311.904 264.472 100 Amount Insulin Regular 100 unit 39.237 64.472 0 In Sodium Chloride 0.9% 100 ml @ Per Protocol IV .Q0M [facility] Rx#:[id number] Propofol 1,000 mg In 272.667 200 100 Empty Bag 1 bag @ Titrate IV .Q0M [facility] Rx#: [id number] Tube Feeding 70 120 Lipid 0 Sodium Chloride 0.9% 1, 0 000 ml @ 70 mls/hr IV . [id number] [facility] Rx#:[id number] Output: Urine 1430 1950 650 Other: Voiding Method Indwelling Catheter Indwelling Catheter Indwelling Catheter # Voids 1 ABP, PAP, CO, CI - Last Documented Arterial Blood Pressure 97/79 - Labs CBC & Chem 7: 10/16/17 05:10 10/16/17 05:10 Labs: Abnormal Lab Results - Last 24 Hours (Table) 10/15/17 10/15/17 10/15/17 Range/Units 10:48 11:30 11:55 WBC (3.8-10.6) k/uL RBC (4.30-5.90) m/uL Hgb (13.0-17.5) gm/dL Hct (39.0-53.0) % Neutrophils # (1.3-7.7) k/uL ABG O2 Saturation (94-97) % Sodium (137-145) mmol/L Chloride (98-107) mmol/L BUN (9-20) mg/dL Creatinine (0.66-1.25) mg/dL Glucose (74-99) mg/dL POC Glucose (mg/dL) 175 H 158 H (75-99) mg/dL Magnesium (1.6-2.3) mg/dL Urine Protein 1+ H (Negative) Urine Glucose (UA) 3+ H (Negative) Urine Blood Small H (Negative) Urine Mucus Rare H (None) /hpf 10/15/17 10/15/17 10/15/17 Range/Units 12:58 13:51 15:03 WBC (3.8-10.6) k/uL RBC (4.30-5.90) m/uL Hgb (13.0-17.5) gm/dL Hct (39.0-53.0) % Neutrophils # (1.3-7.7) k/uL ABG O2 Saturation (94-97) % Sodium (137-145) mmol/L Chloride (98-107) mmol/L BUN (9-20) mg/dL Creatinine (0.66-1.25) mg/dL Glucose (74-99) mg/dL POC Glucose (mg/dL) 158 H 180 H 183 H (75-99) mg/dL Magnesium (1.6-2.3) mg/dL Urine Protein (Negative) Urine Glucose (UA) (Negative) Urine Blood (Negative) Urine Mucus (None) /hpf 10/15/17 10/15/17 10/15/17 Range/Units 16:07 18:23 19:52 WBC (3.8-10.6) k/uL RBC (4.30-5.90) m/uL Hgb (13.0-17.5) gm/dL Hct (39.0-53.0) % Neutrophils # (1.3-7.7) k/uL ABG O2 Saturation (94-97) % Sodium (137-145) mmol/L Chloride (98-107) mmol/L BUN (9-20) mg/dL Creatinine (0.66-1.25) mg/dL Glucose (74-99) mg/dL POC Glucose (mg/dL) 176 H 206 H 135 H (75-99) mg/dL Magnesium (1.6-2.3) mg/dL Urine Protein (Negative) Urine Glucose (UA) (Negative) Urine Blood (Negative) Urine Mucus (None) /hpf 10/15/17 10/15/17 10/16/17 Range/Units 22:07 23:55 02:05 WBC (3.8-10.6) k/uL RBC (4.30-5.90) m/uL Hgb (13.0-17.5) gm/dL Hct (39.0-53.0) % Neutrophils # (1.3-7.7) k/uL ABG O2 Saturation (94-97) % Sodium (137-145) mmol/L Chloride (98-107) mmol/L BUN (9-20) mg/dL Creatinine (0.66-1.25) mg/dL Glucose (74-99) mg/dL POC Glucose (mg/dL) 140 H 138 H 137 H (75-99) mg/dL Magnesium (1.6-2.3) mg/dL Urine Protein (Negative) Urine Glucose (UA) (Negative) Urine Blood (Negative) Urine Mucus (None) /hpf 10/16/17 10/16/17 10/16/17 Range/Units 03:57 05:10 05:10 WBC 12.6 H (3.8-10.6) k/uL RBC 3.50 L (4.30-5.90) m/uL Hgb 9.9 L (13.0-17.5) gm/dL Hct 31.3 L (39.0-53.0) % Neutrophils # 10.2 H (1.3-7.7) k/uL ABG O2 Saturation (94-97) % Sodium 149 H (137-145) mmol/L Chloride 114 H (98-107) mmol/L BUN 53 H (9-20) mg/dL Creatinine 1.28 H (0.66-1.25) mg/dL Glucose 125 H (74-99) mg/dL POC Glucose (mg/dL) 113 H (75-99) mg/dL Magnesium 2.7 H (1.6-2.3) mg/dL Urine Protein (Negative) Urine Glucose (UA) (Negative) Urine Blood (Negative) Urine Mucus (None) /hpf 10/16/17 10/16/17 10/16/17 Range/Units 06:45 07:36 08:00 WBC (3.8-10.6) k/uL RBC (4.30-5.90) m/uL Hgb (13.0-17.5) gm/dL Hct (39.0-53.0) % Neutrophils # (1.3-7.7) k/uL ABG O2 Saturation 98.3 H (94-97) % Sodium (137-145) mmol/L Chloride (98-107) mmol/L BUN (9-20) mg/dL Creatinine (0.66-1.25) mg/dL Glucose (74-99) mg/dL POC Glucose (mg/dL) 134 H 161 H (75-99) mg/dL Magnesium (1.6-2.3) mg/dL Urine Protein (Negative) Urine Glucose (UA) (Negative) Urine Blood (Negative) Urine Mucus (None) /hpf Microbiology - Last 24 Hours (Table) 10/13/17 07:25 Blood Culture Gram Stain - Final Blood Blood Culture - Final Staphylococcus aureus 10/13/17 08:45 Blood Culture Gram Stain - Final Blood Blood Culture - Preliminary Staphylococcus aureus 10/15/17 05:15 Gram Stain - Preliminary Sputum Sputum Culture - Preliminary Assessment and Plan Plan: Assessment: #1. Nonoliguric acute kidney injury secondary to ATN secondary to severe sepsis and hemodynamic instability. Creatinine peaked at 2.1 this admission and is down to 1.28 today. #2. Severe sepsis secondary to septic arthritis. Fluid culture as well as blood culture positive for staph aureus. Scheduled for another debridement today. #3. Insulin-dependent diabetes mellitus. #4. Acute hypercapnic respiratory failure. Currently on ventilator. #5. Respiratory acidosis and metabolic acidosis. Concern for ARDS. #6. Hypernatremia secondary to free water losses from urine and lack of oral water intake. #7. Proteinuria. This is likely due to underlying diabetic kidney disease. Plan: Hep-Lock IV fluids. Continue with tube feeds. Free water flushes 300 mL every 4 hours. Antibiotics per infectious disease recommendations. Avoid nephrotoxic agents and hypotensive episodes. Continue to monitor renal function and urine output. Wean FiO2.
[2017-10-16 10:07] LABS: Glucose,Whole Blood 155 mg/dL (75-99)
--- NOTE | 2017-10-16 11:28 | P.PN ---
Subjective Progress Note Date: 10/16/17 Principal diagnosis: Acute sepsis secondary to septic arthritis of the left ankle and MSSA bacteremia. This is a 52-year-old male patient, diabetic, known history of severe peripheral neuropathy, charcoal joints and previous amputation of the right foot , partial, presenting again today to the hospital because of pain and swelling following an ankle sprain on the left. The patient had been having progressive increase in swelling and pain in the left lower extremity mainly in the ankle area and there is increase in warmth. He came into the emergency department. He was seen by orthopedic surgery. The fluid joints was aspirated and the results are still pending for now. Meanwhile he became progressively more septic and he got transferred to the intensive care unit because of increased tachycardia, tachypnea, right gutters and hypotension and diminished level of consciousness. Apparently the patient was hypoxic with a pulse ox of 80% on the floor. Upon arrival to the ICU he was placed on high flow oxygen initially at 5 L/m nasal cannula which brought his saturation above 90%. He had a temperature 104.2. His heart rate was 130s sinus. He was quite lethargic and dry. He was started on aggressive fluid resuscitation 2 L of bolus of being given right now. Blood cultures positive and I discussed the case with infectious disease and the patient will be switched to daptomycin. The patient will also go to the operating room for immediate I&D. The patient has elevated blood sugar and he will be started on insulin drip for blood sugar control. Chest x-ray post-line insertion showed some smaller lung volumes. No pneumothorax. Some early atelectatic changes in lung bases bilaterally. An art line catheter was also inserted. Subsequently blood gases showed a pH of 7.3 with a pCO2 of 47 and pO2 of 52 and the patient was placed on 100% nonrebreather facemask. On 10/11/2017, the patient is being seen in follow-up in the intensive care unit. The patient came in with a septic arthritis and sepsis to the intensive care unit. The patient was lethargic and septic looking in addition to fever tachycardia leukocytosis. He was also in acute hypoxic respiratory failure. He made resuscitation was done. Following that the patient got transferred to the operating room where the patient underwent irrigation and debridement of the left ankle joint and there was application of a wound VAC to the left ankle. The patient is currently back to the intensive care unit. This morning is awake and alert. He is following commands and answering questions. He is on high flow oxygen at 12 L/m nasal cannula and this will be gradually weaned down as the patient's oxidation is improved. Denies having any respiratory distress. He is less tachycardic compared to yesterday. He did not require any pressors. The blood cultures positive for staph aureus. The patient is currently on daptomycin. He is also on IV Zosyn. A wound VAC is applied to the left foot. His blood sugars under better control with an insulin drip. He is morbidly obese. Denies having any complaints. No chest pain. No shortness of breath. No altered mentation. No other complaints otherwise for now. His white cell count remains elevated at 20.8. He did suffer an acute kidney injury in the creatinine is up to 2. The patient continues to be an IV fluids and is producing adequate amount of urine output. The neck fluid balance is + 3.5 L over the past 24 hours. Patient was reevaluated today on 10/14/2017, remains in the ICU, hemodynamically stable, chest x-ray is showing some worsening, and he seems to be demonstrating a bit more shortness of breath. Urine output has been marginal. And his chest x-ray is showing interstitial edema could very well be noncardiogenic in nature. Hence I have recommended starting the patient on BiPAP with IPAP of 12 EPAP of 4 and I recommended a dose of Lasix 40 mg IV push. CBC showed leukocytosis but improving compared to admission and his basic metabolic profile is normal. BUN is 59 and creatinine is 2.10. Apparently his renal functioning is worsening even prior to giving him any diuretics. Patient remains on daptomycin and Zosyn as per infectious disease on the case. Reevaluated today on 10/15/2017, patient took a downhill course last night, and he required intubation and mechanical ventilation. Patient went on to develop relative hypoxemia and worsening hypercapnia, worsening chest x-ray pointing to mild ARDS based on the Delbarton criteria. PaO2/FiO2, was calculated to be 263 again that is pointing to a mild ARDS as per the Delbarton criteria. His ABG showed a pO2 of 158 pCO2 of 51 pH of 7.26 and this was on the 60% FiO2. Hence The patient on the same tidal volume which is 500 and his respiratory rate is up to 26. Noted on the ventilator and the patient was having ineffective trigger, and dyssynchrony with the ventilator, hence with slightly more sedation we corrected the problem easily. All the labs were reviewed today, WBC count of 13.6 hemoglobin is 9.6 and his basic metabolic profile was also reviewed, his creatinine is 2.0) very close to his baseline in the last few days chest x-ray was also reviewed, showing bibasilar interstitial infiltrates, but left more so than right. Nutrition was addressed, and the patient will be started on enteral feeding. Reevaluated today on 10/16/2017, remains on mechanical ventilation, the ventilator settings are basically the same, and reviewed his airway mechanics, seems to be improving. ABG this morning showed a pO2 of 104 pCO2 of 40 pH of 7.37. All labs were reviewed, renal profile is improving, sodium is up to 149, hence we'll change the main IV fluid to D5 45, and we will give free water flushes via nasogastric tube with the feedings. WBC count is 12.6 hemoglobin is 9.9. Chest x-ray continues to show by basilar infiltrates. And interstitial pattern consistent with ARDS. PaO2/FiO2 is calculated to be at 260. Again that's consistent with a mild ARDS based on that Delbarton criteria. I was considering weaning trial today, however considering the patient is going back to surgery today, and this is scheduled sometime this afternoon, I would hold on the weaning trial today, and explained to the that it would be best to wait for another day since surgery is scheduled this afternoon. In the meantime we'll continue antibiotics as per infectious disease on the case. Patient is now on Kefzol 2 g every 8. Remains on GI and DVT prophylaxis. Objective - Vital Signs Vital signs: Vital Signs Temp 99.5 F 10/16/17 11:00 Pulse 75 10/16/17 11:00 Resp 26 H 10/16/17 11:00 BP 111/52 10/14/17 17:00 Pulse Ox 96 10/16/17 11:00 Intake & Output 10/15/17 10/16/17 10/16/17 18:59 06:59 18:59 Intake Total 1970.110 4278.472 177.237 Output Total 1430 1950 1025 Balance -278.096 -725.528 -847.763 Weight 150.1 kg 160.3 kg 160.3 kg Intake: IV 770 840 70 Sodium Chloride 0.9% 1, 770 840 70 000 ml @ 70 mls/hr IV . [id number] [facility] Rx#:[id number] Intake, IV Titration 311.904 264.472 107.237 Amount Insulin Regular 100 unit 39.237 64.472 7.237 In Sodium Chloride 0.9% 100 ml @ Per Protocol IV .Q0M [facility] Rx#:[id number] Propofol 1,000 mg In 272.667 200 100 Empty Bag 1 bag @ Titrate IV .Q0M [facility] Rx#: [id number] Tube Feeding 70 120 Lipid 0 Sodium Chloride 0.9% 1, 0 000 ml @ 70 mls/hr IV . [id number] [facility] Rx#:[id number] Output: Urine 1430 1950 1025 Other: Voiding Method Indwelling Catheter Indwelling Catheter Indwelling Catheter # Voids 1 ABP, PAP, CO, CI - Last Documented Arterial Blood Pressure 110/61 - Exam Physical Exam: Revealed a 52-year-old white male, obese, resting on mechanical ventilation, in no distress. On propofol drip. Head: Atraumatic, normocephalic. Endotracheal tube is intact HEENT:[Neck is supple.] [No neck masses.] [No thyromegaly.] [No JVD.] Chest: [Crackles and rhonchi noted at the bases, no wheezes, no chest wall tenderness.] Cardiac Exam: [Normal S1 and S2, no S3 gallop, no murmur.] Abdomen: [Obese, Soft, nontender, no megaly, no rebound, no guarding, normal bowel sounds.] Extremities: [Wound VAC has been removed, left ankle is wrapped with sterile dressing, going back to surgery today on his left ankle Neurological Exam: Fully sedated on propofol drip, opens eyes to deep stimuli. Psychiatric: Cannot be assessed, patient is sedated. Lymphatics: No lymphadenopathy - Labs CBC & Chem 7: 10/16/17 05:10 10/16/17 05:10 Labs: Abnormal Lab Results - Last 24 Hours (Table) 10/15/17 10/15/17 10/15/17 Range/Units 11:30 11:55 12:58 WBC (3.8-10.6) k/uL RBC (4.30-5.90) m/uL Hgb (13.0-17.5) gm/dL Hct (39.0-53.0) % Neutrophils # (1.3-7.7) k/uL ABG O2 Saturation (94-97) % Sodium (137-145) mmol/L Chloride (98-107) mmol/L BUN (9-20) mg/dL Creatinine (0.66-1.25) mg/dL Glucose (74-99) mg/dL POC Glucose (mg/dL) 158 H 158 H (75-99) mg/dL Magnesium (1.6-2.3) mg/dL Urine Protein 1+ H (Negative) Urine Glucose (UA) 3+ H (Negative) Urine Blood Small H (Negative) Urine Mucus Rare H (None) /hpf 10/15/17 10/15/17 10/15/17 Range/Units 13:51 15:03 16:07 WBC (3.8-10.6) k/uL RBC (4.30-5.90) m/uL Hgb (13.0-17.5) gm/dL Hct (39.0-53.0) % Neutrophils # (1.3-7.7) k/uL ABG O2 Saturation (94-97) % Sodium (137-145) mmol/L Chloride (98-107) mmol/L BUN (9-20) mg/dL Creatinine (0.66-1.25) mg/dL Glucose (74-99) mg/dL POC Glucose (mg/dL) 180 H 183 H 176 H (75-99) mg/dL Magnesium (1.6-2.3) mg/dL Urine Protein (Negative) Urine Glucose (UA) (Negative) Urine Blood (Negative) Urine Mucus (None) /hpf 10/15/17 10/15/17 10/15/17 Range/Units 18:23 19:52 22:07 WBC (3.8-10.6) k/uL RBC (4.30-5.90) m/uL Hgb (13.0-17.5) gm/dL Hct (39.0-53.0) % Neutrophils # (1.3-7.7) k/uL ABG O2 Saturation (94-97) % Sodium (137-145) mmol/L Chloride (98-107) mmol/L BUN (9-20) mg/dL Creatinine (0.66-1.25) mg/dL Glucose (74-99) mg/dL POC Glucose (mg/dL) 206 H 135 H 140 H (75-99) mg/dL Magnesium (1.6-2.3) mg/dL Urine Protein (Negative) Urine Glucose (UA) (Negative) Urine Blood (Negative) Urine Mucus (None) /hpf 10/15/17 10/16/17 10/16/17 Range/Units 23:55 02:05 03:57 WBC (3.8-10.6) k/uL RBC (4.30-5.90) m/uL Hgb (13.0-17.5) gm/dL Hct (39.0-53.0) % Neutrophils # (1.3-7.7) k/uL ABG O2 Saturation (94-97) % Sodium (137-145) mmol/L Chloride (98-107) mmol/L BUN (9-20) mg/dL Creatinine (0.66-1.25) mg/dL Glucose (74-99) mg/dL POC Glucose (mg/dL) 138 H 137 H 113 H (75-99) mg/dL Magnesium (1.6-2.3) mg/dL Urine Protein (Negative) Urine Glucose (UA) (Negative) Urine Blood (Negative) Urine Mucus (None) /hpf 10/16/17 10/16/17 10/16/17 Range/Units 05:10 05:10 06:45 WBC 12.6 H (3.8-10.6) k/uL RBC 3.50 L (4.30-5.90) m/uL Hgb 9.9 L (13.0-17.5) gm/dL Hct 31.3 L (39.0-53.0) % Neutrophils # 10.2 H (1.3-7.7) k/uL ABG O2 Saturation (94-97) % Sodium 149 H (137-145) mmol/L Chloride 114 H (98-107) mmol/L BUN 53 H (9-20) mg/dL Creatinine 1.28 H (0.66-1.25) mg/dL Glucose 125 H (74-99) mg/dL POC Glucose (mg/dL) 134 H (75-99) mg/dL Magnesium 2.7 H (1.6-2.3) mg/dL Urine Protein (Negative) Urine Glucose (UA) (Negative) Urine Blood (Negative) Urine Mucus (None) /hpf 10/16/17 10/16/17 10/16/17 Range/Units 07:36 08:00 10:05 WBC (3.8-10.6) k/uL RBC (4.30-5.90) m/uL Hgb (13.0-17.5) gm/dL Hct (39.0-53.0) % Neutrophils # (1.3-7.7) k/uL ABG O2 Saturation 98.3 H (94-97) % Sodium (137-145) mmol/L Chloride (98-107) mmol/L BUN (9-20) mg/dL Creatinine (0.66-1.25) mg/dL Glucose (74-99) mg/dL POC Glucose (mg/dL) 161 H 155 H (75-99) mg/dL Magnesium (1.6-2.3) mg/dL Urine Protein (Negative) Urine Glucose (UA) (Negative) Urine Blood (Negative) Urine Mucus (None) /hpf Microbiology - Last 24 Hours (Table) 10/13/17 07:25 Blood Culture Gram Stain - Final Blood Blood Culture - Final Staphylococcus aureus 10/13/17 08:45 Blood Culture Gram Stain - Final Blood Blood Culture - Preliminary Staphylococcus aureus 10/15/17 05:15 Gram Stain - Preliminary Sputum Sputum Culture - Preliminary Assessment and Plan Assessment: 1 acute septic arthritis of the left ankle, status post left ankle irrigation and debridement and the patient is postop day #4 2 acute severe sepsis secondary to above and the blood cultures positive for MSSA, presently on Kefzol 2 g every 8 3 acute fever and chills and leukocytosis and sinus tachycardia secondary to above 4 altered mental status secondary to above, improved 5 acute hypoxic and hypercapnic respiratory failure secondary to mild ARDS with PaO2/FiO2 ratio of 263. This is relatively mild based on the Delbarton criteria. Nonetheless, patient required intubation and mechanical ventilation last night. 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 17 acute hypernatremia secondary to free water deficit, this will be corrected by giving the patient more free water. Recommendation: Continue present supportive care measures, antibiotics /Kefzol continue to monitor closely in the ICU, continue mechanical ventilation, nutritional support, antibiotics, follow the protocol for ventilation in ARDS. Discussed his condition with at bedside. We'll continue to follow. Critical care time is 35 minutes, discussed his condition with at bedside and updated her on his condition. Time with Patient: Greater than 30
[2017-10-16] MEDS: PREGABALIN 100 MG CAP PO SCH ×3 (11:40→22:06)
[2017-10-16] MEDS: DEXTROSE 5%-0.45% NACL 1,000 ML IV SCH ×2 (11:40→20:28)
[2017-10-16 12:07] LABS: Glucose,Whole Blood 186 mg/dL (75-99)
[2017-10-16] MEDS ORDERED: fentaNYL (PF) 50 MCG/ML 2 ML AMP ONE (13:33)
[2017-10-16] MEDS ORDERED: SODIUM CHLORIDE 0.9% 500 ML IV ONE (13:33)
[2017-10-16] MEDS ORDERED: MIDAZOLAM 2 MG/2 ML VIAL ONE (13:33)
[2017-10-16] MEDS ORDERED: ceFAZolin 3,000 MG in SODIUM CHLORIDE 0.9% IRRIGATIO 3,000 ML IRRIGATION ONE (13:56)
--- NOTE | 2017-10-16 14:53 | P.OP ---
Date of Procedure: 10/16/17 Preoperative Diagnosis: 1. Septic arthritis left ankle 2. Osteomyelitis left talar head and navicular 3. Poorly controlled type 2 diabetes 4. 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 Sepsis 7. Respiratory failure 8. Acute renal injury Postoperative Diagnosis: Same Procedure(s) Performed: 1. Irrigation debridement left ankle 2. Application of wound VAC left ankle Anesthesia: ALAN Surgeon: Dre Mcneil Knife Setter Assembler #1: Dino Rubi Estimated Blood Loss (ml): 50 Pathology: none sent Condition: stable Disposition: PACU Indications for Procedure: The patient is a 52-year-old male who is currently admitted to the ICU with severe sepsis originating from a septic left ankle. The patient underwent an emergent irrigation and debridement this past Saturday night. He has since been in the ICU. He is required intubation due to respiratory failure. His cultures have come back as MSSA. He is on IV antibiotics. We have been closely monitoring his wound. His white count has been trending down. I examine the wound yesterday afternoon with Dr. Mi from infectious disease. Due to the patient's continued sepsis Dr. Mi requested a second formal exploration of the ankle to verify that there is no ongoing abscess or deep infection. I agreed to take the patient for a second irrigation and debridement. I do lengthy discussion with the patient's was at bedside yesterday. We discussed the potential risks and complications of surgery including but not limited to risks from anesthesia, risk of continued infection , risk of sepsis, risk of need for further surgery, risk of amputation, and possibly loss of life. The patient's voiced her understanding of this. She provided her verbal and written consent to go forward with surgery. Operative Findings: There is no gross purulence in the anterolateral wound. An anteromedial exposure was also made and there was no evidence of deep purulence. The talar head navicular were grossly friable and necrotic consistent with osteomyelitis or Charcot. Description of Procedure: The patient was identified in the ICU and the left leg was verified with the patient's nurse. He was then brought back to the operating room. He was positioned on the OR table where general anesthetic was administered. A tourniquet was applied proximal aspect of the left thigh but was not inflated. The left leg was then prepped and draped in the standard sterile fashion. Prior to starting surgery timeout was performed identifying the correct patient , operative extremity, and procedure. I began by exploring the lateral wound had previously been made. There was a small amount of blood-tinged fluid but no nisha purulence. A longitudinal incision was then marked out over the medial aspect of the ankle and foot in the interval between the tibialis anterior and posterior tibial tendon. Skin incision was made with a 15 blade scalpel. Dissection was carried down carefully to the subcutaneous tissue with tenotomy scissors and electrocautery. The ankle joint talonavicular capsule were opened. There was no deep purulence. The talar head and navicular were necrotic and grossly friable. All , nonviable bone was removed. The wound was then copiously irrigated with 3 L of sterile saline. The skin margins were dried. Ioban was placed around the wound margins. Wound VAC sponges were cut and placed into both the anteromedial and anterolateral wound. The transparent adhesive dressing was placed over the Iob[place] and wound vacs. [place] pads were placed over the VAC sponges and hooked up to suction. Both sponges had excellent seal with no leak. I verified that all sponge instrument and sharp counts were correct. The patient was then brought back to the ICU having tolerated the procedure well. Plan: The patient's wounds appear relatively clean with no gross purulence. The patient will continue antibiotic and wound care under the direction of Dr. Mi. I'm not planning on a third trip to the operating room unless the patient deteriorates, his clinical state worsens, or throat request of Dr. Mi. We will continue to closely follow him while he is in the hospital.
[2017-10-16 14:55] LABS: Glucose,Whole Blood 210 mg/dL (75-99)
[2017-10-16] MEDS: INSULIN REGULAR 100 UNIT in SODIUM CHLORIDE 0.9% 100 ML IV SCH (15:19)
[2017-10-16 16:23] LABS: Glucose,Whole Blood 186 mg/dL (75-99)
[2017-10-16 17:01] LABS: Glucose,Whole Blood 204 mg/dL (75-99)
[2017-10-16 18:02] LABS: Glucose,Whole Blood 209 mg/dL (75-99)
[2017-10-16 19:01] LABS: Glucose,Whole Blood 150 mg/dL (75-99)
[2017-10-16 20:08] LABS: Glucose,Whole Blood 165 mg/dL (75-99)
[2017-10-16] MEDS: ATORVASTATIN 40 MG TAB PO SCH (20:31)
[2017-10-16 20:55] LABS: Glucose,Whole Blood 166 mg/dL (75-99)
[2017-10-16 22:12] LABS: Glucose,Whole Blood 201 mg/dL (75-99)
[2017-10-16 22:58] LABS: Glucose,Whole Blood 187 mg/dL (75-99)
--- NOTE | 2017-10-16 23:50 | P.PN ---
Subjective Progress Note Date: 10/16/17 Principal diagnosis: Sepsis 52-year-old male has a long-standing history of diabetes mellitus type 2 poorly controlled and history of a prior diabetic foot ulceration to the right foot which resulted in a great toe amputation. The patient is been having some difficulties with his left ankle and following with the orthopedic surgeon. Because of some discomfort at the joint he was measured and given a new bracing device for the foot and ankle. However grommet on the dorsum of the foot resulted in a bit of an ulcer and he was concerned and sought care in the office. The patient had difficulty making the appointment because of the weather and has significant distance from work to the office and reschedule. When he came to the office earlier this week the ulceration had healed and he was feeling better but was still having some swelling to the ankle area. He had no fever or chills at the time of presentation to the office, but did have the swelling to the ankle area for which she had a specialty boot that have been designed that he was not wearing that day. He however presents to the emergency center because of the sudden onset of inability to bear weight to the ankle because of the amount of pain that he started to have. Shortly thereafter he became febrile and has had a rapid decline in his status with evidence of sepsis and presentation to the intensive care unit. The case is discussed with the metal numerical control programmer as well as the orthopedic foot and ankle specialist. Given his rapid decline in status he'll go to the operating room this afternoon. The patient is acutely ill with fever chills generalized weakness and malaise and some alteration of his mental status 10/13/2017 patient remains in intensive care unit with ongoing sepsis. Appears to have acute lung injury and also has an elevation of his creatinine likely with an acute renal injury also occurring from his sepsis. Laboratories revealed evidence of staph aureus await final susceptibility. Follow blood cultures in process reasonable cultures are positive. Patient continues to have some ongoing fevers and is admitted of nausea with the response to Zofran. He is still in a warm flushed phase of sepsis and hopefully now that he has been resuscitated will have further improvement of his status. 10/14/2017 patient does have some improvement today. He is not hypotensive not requiring vasopressors but is still on high flow oxygen for his acute lung injury. He has had fevers but down to 99.9 still feels poorly and has significant pain of the left foot and ankle area. 10/15/2017 the patient had deterioration of his respiratory status last night with his acute lung injury and developing early ARDS. He required intubation with sedation and mechanical ventilation. With improved sedation he is quite comfortable today and is synchronous with the vent with adequate oxygenation and improved blood gas. The patient is quite comfortable at this time and receiving tube feeds for his nutritional needs. Fever and leukocytosis are trending down 10/16/2017 is noted the patient remains ventilated as well as with intubation and sedation. He is quite comfortable today. Has been taking back to the operating room for further evaluation of the medial aspect of the right ankle, some infected bone was debrided but no further extensive pockets of purulence were found. Wound VAC applied. Objective - Vital Signs Vital signs: Vital Signs Temp 100.0 F H 10/16/17 20:00 Pulse 78 10/16/17 23:00 Resp 26 H 10/16/17 23:00 BP 111/52 10/14/17 17:00 Pulse Ox 96 10/16/17 23:00 Intake & Output 10/16/17 10/16/17 10/17/17 06:59 18:59 06:59 Intake Total 1224.472 844.713 639.616 Output Total 1950 3180 725 Balance -725.528 -2335.287 -85.384 Weight 160.3 kg 160.3 kg Intake: IV 840 371 320 Dextrose 5%-0.45% NaCl 1, 320 000 ml @ 100 mls/hr IV . Q10H [facility] Rx#:[id number] Sodium Chloride 0.9% 1, 840 70 000 ml @ 70 mls/hr IV . [id number] [facility] Rx#:[id number] Intake, IV Titration 264.472 473.713 219.616 Amount Insulin Regular 100 unit 64.472 45.273 19.616 In Sodium Chloride 0.9% 100 ml @ Per Protocol IV .Q0M [facility] Rx#:[id number] Propofol 1,000 mg In 200 428.44 200 Empty Bag 1 bag @ Titrate IV .Q0M [facility] Rx#: [id number] Tube Feeding 120 100 Lipid 0 Sodium Chloride 0.9% 1, 0 000 ml @ 70 mls/hr IV . [id number] [facility] Rx#:[id number] Output: Drainage 400 Left Ankle 400 Urine 1950 2730 725 Estimated Blood Loss 50 Other: Voiding Method Indwelling Catheter Indwelling Catheter Indwelling Catheter # Voids 1 ABP, PAP, CO, CI - Last Documented Arterial Blood Pressure 130/62 - Exam 52-year-old male presents to Hospital feeling acutely ill found to have evidence of fever and then rapidly developed sepsis HEENT: Anicteric conjunctiva are pink and moist nasal mucosa grossly intact without significant lesions, patient is now intubated and sedated Neck: The neck is supple without significant lymphadenopathy or thyromegaly. Lungs: Good bilateral air entry without significant crackles or wheezing. There is no significant bronchial sounds. There is no egophony or dullness. Heart: Tachycardic but regular with an audible S1 and S2 soft S4 There is no significant murmur click or rub, PMI was nondisplaced. Abdomen: Obese Positive bowel sounds soft and nontender without palpable masses or organomegaly. There was no guarding or rebound. Extremities: The upper extremities have excellent pulses they are symmetric, no significant petechiae or telangiectasia. No splinter hemorrhages were noted. Right lower extremity has evidence of the prior great toe amputation which is well healed. Left lower extremity reveals evidence of the surgical incision and drainage performed in the wound VAC is in place. There is still some swelling but the extensive swelling at the ankle has started to improve. There is no inguinal lymphadenopathy. Neuro: Sedated and mechanically ventilated - Labs CBC & Chem 7: 10/16/17 05:10 10/16/17 05:10 Labs: Abnormal Lab Results - Last 24 Hours (Table) 10/15/17 10/16/17 10/16/17 Range/Units 23:55 02:05 03:57 WBC (3.8-10.6) k/uL RBC (4.30-5.90) m/uL Hgb (13.0-17.5) gm/dL Hct (39.0-53.0) % Neutrophils # (1.3-7.7) k/uL ABG O2 Saturation (94-97) % Sodium (137-145) mmol/L Chloride (98-107) mmol/L BUN (9-20) mg/dL Creatinine (0.66-1.25) mg/dL Glucose (74-99) mg/dL POC Glucose (mg/dL) 138 H 137 H 113 H (75-99) mg/dL Magnesium (1.6-2.3) mg/dL 10/16/17 10/16/17 10/16/17 Range/Units 05:10 05:10 06:45 WBC 12.6 H (3.8-10.6) k/uL RBC 3.50 L (4.30-5.90) m/uL Hgb 9.9 L (13.0-17.5) gm/dL Hct 31.3 L (39.0-53.0) % Neutrophils # 10.2 H (1.3-7.7) k/uL ABG O2 Saturation (94-97) % Sodium 149 H (137-145) mmol/L Chloride 114 H (98-107) mmol/L BUN 53 H (9-20) mg/dL Creatinine 1.28 H (0.66-1.25) mg/dL Glucose 125 H (74-99) mg/dL POC Glucose (mg/dL) 134 H (75-99) mg/dL Magnesium 2.7 H (1.6-2.3) mg/dL 10/16/17 10/16/17 10/16/17 Range/Units 07:36 08:00 10:05 WBC (3.8-10.6) k/uL RBC (4.30-5.90) m/uL Hgb (13.0-17.5) gm/dL Hct (39.0-53.0) % Neutrophils # (1.3-7.7) k/uL ABG O2 Saturation 98.3 H (94-97) % Sodium (137-145) mmol/L Chloride (98-107) mmol/L BUN (9-20) mg/dL Creatinine (0.66-1.25) mg/dL Glucose (74-99) mg/dL POC Glucose (mg/dL) 161 H 155 H (75-99) mg/dL Magnesium (1.6-2.3) mg/dL 10/16/17 10/16/17 10/16/17 Range/Units 12:06 14:53 16:21 WBC (3.8-10.6) k/uL RBC (4.30-5.90) m/uL Hgb (13.0-17.5) gm/dL Hct (39.0-53.0) % Neutrophils # (1.3-7.7) k/uL ABG O2 Saturation (94-97) % Sodium (137-145) mmol/L Chloride (98-107) mmol/L BUN (9-20) mg/dL Creatinine (0.66-1.25) mg/dL Glucose (74-99) mg/dL POC Glucose (mg/dL) 186 H 210 H 186 H (75-99) mg/dL Magnesium (1.6-2.3) mg/dL 10/16/17 10/16/17 10/16/17 Range/Units 17:00 18:01 19:00 WBC (3.8-10.6) k/uL RBC (4.30-5.90) m/uL Hgb (13.0-17.5) gm/dL Hct (39.0-53.0) % Neutrophils # (1.3-7.7) k/uL ABG O2 Saturation (94-97) % Sodium (137-145) mmol/L Chloride (98-107) mmol/L BUN (9-20) mg/dL Creatinine (0.66-1.25) mg/dL Glucose (74-99) mg/dL POC Glucose (mg/dL) 204 H 209 H 150 H (75-99) mg/dL Magnesium (1.6-2.3) mg/dL 10/16/17 10/16/17 10/16/17 Range/Units 20:07 20:54 22:11 WBC (3.8-10.6) k/uL RBC (4.30-5.90) m/uL Hgb (13.0-17.5) gm/dL Hct (39.0-53.0) % Neutrophils # (1.3-7.7) k/uL ABG O2 Saturation (94-97) % Sodium (137-145) mmol/L Chloride (98-107) mmol/L BUN (9-20) mg/dL Creatinine (0.66-1.25) mg/dL Glucose (74-99) mg/dL POC Glucose (mg/dL) 165 H 166 H 201 H (75-99) mg/dL Magnesium (1.6-2.3) mg/dL 10/16/17 Range/Units 22:56 WBC (3.8-10.6) k/uL RBC (4.30-5.90) m/uL Hgb (13.0-17.5) gm/dL Hct (39.0-53.0) % Neutrophils # (1.3-7.7) k/uL ABG O2 Saturation (94-97) % Sodium (137-145) mmol/L Chloride (98-107) mmol/L BUN (9-20) mg/dL Creatinine (0.66-1.25) mg/dL Glucose (74-99) mg/dL POC Glucose (mg/dL) 187 H (75-99) mg/dL Magnesium (1.6-2.3) mg/dL Microbiology - Last 24 Hours (Table) 10/13/17 08:45 Blood Culture Gram Stain - Final Blood Blood Culture - Final Staphylococcus aureus 10/12/17 19:48 Anaerobic Culture - Final Ankle - Left 10/12/17 19:48 Anaerobic Culture - Final Ankle - Left 10/15/17 05:15 Gram Stain - Preliminary Sputum Sputum Culture - Preliminary Jayne albicans 10/13/17 07:25 Blood Culture Gram Stain - Final Blood Blood Culture - Final Staphylococcus aureus Laboratory Results WBC 12.6 k/uL (3.8-10.6) H 10/16/17 05:10 RBC 3.50 m/uL (4.30-5.90) L 10/16/17 05:10 Hgb 9.9 gm/dL (13.0-17.5) L 10/16/17 05:10 Hct 31.3 % (39.0-53.0) L 10/16/17 05:10 MCV 89.5 fL (80.0-100.0) 10/16/17 05:10 MCH 28.4 pg (25.0-35.0) 10/16/17 05:10 MCHC 31.7 g/dL (31.0-37.0) 10/16/17 05:10 RDW 14.0 % (11.5-15.5) 10/16/17 05:10 Plt Count 285 k/uL (150-450) 10/16/17 05:10 Neutrophils % 81 % 10/16/17 05:10 Lymphocytes % 9 % 10/16/17 05:10 Monocytes % 7 % 10/16/17 05:10 Eosinophils % 1 % 10/16/17 05:10 Basophils % 0 % 10/16/17 05:10 Neutrophils # 10.2 k/uL (1.3-7.7) H 10/16/17 05:10 Lymphocytes # 1.1 k/uL (1.0-4.8) 10/16/17 05:10 Monocytes # 0.9 k/uL (0-1.0) 10/16/17 05:10 Eosinophils # 0.1 k/uL (0-0.7) 10/16/17 05:10 Basophils # 0.0 k/uL (0-0.2) 10/16/17 05:10 Hypochromasia Moderate 10/15/17 05:00 ESR 25 mm/hr (0-15) H 10/12/17 07:29 Sample Site a line 10/16/17 07:36 ABG pH 7.37 (7.35-7.45) 10/16/17 07:36 ABG pCO2 40 mmHg (35-45) 10/16/17 07:36 ABG pO2 104 mmHg (83-108) 10/16/17 07:36 ABG HCO3 23 mmol/L (21-25) 10/16/17 07:36 ABG Total CO2 24 mmol/L (19-24) 10/16/17 07:36 ABG O2 Saturation 98.3 % (94-97) H 10/16/17 07:36 ABG Base Excess -2.4 mmol/L 10/16/17 07:36 Cr Test Yes 10/16/17 07:36 ABG Lactic Acid 1.0 mmol/L (0.5-1.6) 10/12/17 18:06 FiO2 40 % 10/16/17 07:36 Sodium 149 mmol/L (137-145) H 10/16/17 05:10 Potassium 4.1 mmol/L (3.5-5.1) 10/16/17 05:10 Chloride 114 mmol/L (98-107) H 10/16/17 05:10 Carbon Dioxide 24 mmol/L (22-30) 10/16/17 05:10 Anion Gap 11 mmol/L 10/16/17 05:10 BUN 53 mg/dL (9-20) H 10/16/17 05:10 Creatinine 1.28 mg/dL (0.66-1.25) H 10/16/17 05:10 Est GFR (CKD-EPI)AfAm 74 (>60 ml/min/1.73 sqM) 10/16/17 05:10 Est GFR (CKD-EPI)NonAf 64 (>60 ml/min/1.73 sqM) 10/16/17 05:10 Glucose 125 mg/dL (74-99) H 10/16/17 05:10 POC Glucose (mg/dL) 187 mg/dL (75-99) H 10/16/17 22:56 POC Glu Fermenter Helper ID Malika Lyon 10/16/17 22:[address] Glu mg/dL 214 10/12/17 07:29 Hemoglobin A1c 9.1 % (4.0-6.0) H 10/12/17 07:29 Plasma Lactic Acid Ron 1.5 mmol/L (0.7-2.0) 10/11/17 21:10 Uric Acid 5.6 mg/dL (3.5-8.5) 10/11/17 21:10 Calcium 8.8 mg/dL (8.4-10.2) 10/16/17 05:10 Phosphorus 2.9 mg/dL (2.5-4.5) 10/16/17 05:10 Magnesium 2.7 mg/dL (1.6-2.3) H 10/16/17 05:10 AST 96 U/L (17-59) H 10/13/17 19:55 ALT 58 U/L (21-72) 10/13/17 19:55 C-Reactive Protein 45.1 mg/L (<10.0) H 10/11/17 21:10 Urine Color Yellow 10/15/17 11:30 Urine Appearance Clear (Clear) 10/15/17 11:30 Urine pH 6.0 (5.0-8.0) 10/15/17 11:30 Ur Specific [place] 1.018 (1.001-1.035) 10/15/17 11:30 Urine Protein 1+ (Negative) H 10/15/17 11:30 Urine Glucose (UA) 3+ (Negative) H 10/15/17 11:30 Urine Ketones Negative (Negative) 10/15/17 11:30 Urine Blood Small (Negative) H 10/15/17 11:30 Urine Nitrite Negative (Negative) 10/15/17 11:30 Urine Bilirubin Negative (Negative) 10/15/17 11:30 Urine Urobilinogen <2.0 mg/dL (<2.0) 10/15/17 11:30 Ur Leukocyte Esterase Negative (Negative) 10/15/17 11:30 Urine RBC <1 /hpf (0-5) 10/15/17 11:30 Urine WBC 3 /hpf (0-5) 10/15/17 11:30 Urine Mucus Rare /hpf (None) H 10/15/17 11:30 Microbiology 10/13/17 08:45 Blood Blood Culture Gram Stain - Final 10/13/17 08:45 Blood Blood Culture - Final Staphylococcus aureus 10/12/17 19:48 Ankle - Left Anaerobic Culture - Final 10/12/17 19:48 Ankle - Left Anaerobic Culture - Final 10/15/17 05:15 Sputum Gram Stain - Preliminary 10/15/17 05:15 Sputum Sputum Culture - Preliminary Jayne albicans 10/13/17 07:25 Blood Blood Culture Gram Stain - Final 10/13/17 07:25 Blood Blood Culture - Final Staphylococcus aureus 10/12/17 19:48 Ankle - Left Gram Stain - Final 10/12/17 19:48 Ankle - Left Wound Culture - Final Staph aureus 10/12/17 19:48 Ankle - Left Gram Stain - Final 10/12/17 19:48 Ankle - Left Wound Culture - Final Staphylococcus aureus 10/12/17 09:27 Synovial Fluid Gram Stain - Final 10/12/17 09:27 Synovial Fluid Body Fluid Culture - Final Staphylococcus aureus 10/13/17 07:25 Blood Blood Culture - Final 10/13/17 08:45 Blood Blood Culture - Final 10/11/17 21:15 Blood Blood Culture Gram Stain - Final 10/11/17 21:15 Blood Blood Culture - Final Staphylococcus aureus 10/11/17 21:15 Blood Blood Culture - Final Assessment and Plan (1) Septic arthritis of left ankle Narrative/Plan: 52-year-old male presents the emergency center with inability to bear weight to his left ankle. The patient has had some new orthotic boot manufactured in a developed a small ulcer on the dorsum of the left foot. This apparently was from a grommet from an orthotic. This was completely healed and was evaluated but was still having ongoing difficulties with ankle area. Is actively following up with orthopedic foot and ankle. The patient does have a boot that was designed that he was not wearing when he came to the office and understands it is important that he wears this when he is at work to protect his ankle from the Charcot changes. Patient however now has high-grade fever chills leukocytosis and laboratories: Positive blood culture with gram-positive cocci. The patient did have aspiration per orthopedic ankle grossly purulent material was found. Originally the plan was to go to the operating him in the morning but as the patient felt worsening sepsis he is no scheduled operating room this afternoon for the incision and drainage of this abscess. Deep cultures and pathology will also be sent. Antibiotic therapy is altered from vancomycin to daptomycin. In hopes to have a more rapid bacteriocidal activity given his rapidly declining status. Enhance glucose control be important part of his healing. Leukocytosis record related to his current sepsis. There is evidence of possible culture and he will require follow blood cultures in the morning. He was monitored for any persistence of his bacteremia. There will be a coordinated effort between orthopedic ankle and infectious disease as to the care at discharge. 10/13/2017 reveals the patient still needs intensive care unit after surgery with ongoing sepsis. Continues to have fever and leukocytosis and difficulties with acute lung injury and now elevated creatinine to 2.0. Patient continues to be resuscitated and has had some improvement but minimal at this point in time. He will continue with maneuvers to improve his fever maintain his hydration and antibiotic therapy continues with daptomycin for both staph aureus and MRSA, blood culture and aspirate from the ankle are still showing staph aureus final susceptibility is pending. Patient aware that if he improves he will be receiving a jg completed a long course of IV antibiotic therapy for this extensive infection. Leukocytosis directly related to the sepsis 10/14/2017 the patient remains in intensive care unit, high flow oxygen is being utilized for his acute lung injury. His creatinine has increased further is now 2.0. Urine output is adequate. He is symptomatically stable is having difficulties with shortness of breath. Pain at the foot and ankle is predictable but the significant swelling history improving after surgical incision and drainage. Ulceration is treated with a medical history dressing. If there is no further marked improvement by tomorrow the patient will likely go back to the operating him for further incision and drainage to the site. The case is discussed with the orthopedic surgeon. 10/15/2017 the patient is noted had a decline of his status and his required intubation with sedation mechanical ventilation and is now much more comfortable. His pulmonary status is improved with the intervention. He has not requiring vasopressor therapy. We'll do blood cultures verified MSSA and antibiotic therapy was transitioned to high dose cefazolin. The patient is evaluated in conjunction with the orthopedic surgeon and the plan is for the patient to have further debridement of the ankle tomorrow to ensure there is complete drainage of any abscess at that joint site given the progression of his underlying illness. Fortunately he has not hemodynamic stable and is having improvement of his leukocytosis. We'll expect as a sepsis improves his pulmonary injury will improve also. His creatinine peaked at 2.10 now down to 2.0 and nephrology has evaluated. Follow blood cultures to ensure clearance of his bacteremia. Echocardiogram without evidence of vegetations. Is not the case is discussed with the orthopedic surgeon as well as the patient' s . 10/16/2017 the patient's been taking to the operating room today for further debridement of the left ankle. Some necrotic bone was debrided but no further large pockets of abscess were seen. Wound vacs are applied. We'll continue his high-dose antibiotic therapy for his MSSA infection from the septic arthritis left ankle. There are several evidences of improvement today, still requires no vasopressor therapy. We'll expect as he starting to improve we need to start in the next day or so. Once he is evidence of clearance of his bacteremia will need IV access placed for his long-term IV antibiotic therapy. Current Visit: Yes Status: Acute Code(s): M00.9 - PYOGENIC ARTHRITIS, UNSPECIFIED SNOMED Code(s): 96814093 (2) Sepsis Current Visit: Yes Status: Acute Priority: Medium Code(s): A41.9 - SEPSIS , UNSPECIFIED ORGANISM SNOMED Code(s): 05063658 (3) Poorly controlled type 2 diabetes mellitus with complication Current Visit: Yes Status: Acute Code(s): E11.8 - TYPE 2 DIABETES MELLITUS WITH UNSPECIFIED COMPLICATIONS; E11.65 - TYPE 2 DIABETES MELLITUS WITH HYPERGLYCEMIA SNOMED Code(s): 63192953
[2017-10-16 23:54] LABS: Glucose,Whole Blood 185 mg/dL (75-99)
[2017-10-17] MEDS: PROPOFOL 1,000 MG in EMPTY BAG 1 BAG IV SCH ×14 (00:47→23:02)
[2017-10-17] MEDS: HEPARIN SODIUM,PORCINE 5,000 UNIT/ML 1 ML VIAL SQ SCH ×3 (00:48→15:04)
[2017-10-17] MEDS: ceFAZolin IN SWFI 2 GM/20 ML SYRINGE IVP SCH ×3 (00:48→15:03)
[2017-10-17 01:09] LABS: Glucose,Whole Blood 226 mg/dL (75-99)
[2017-10-17 01:56] LABS: Glucose,Whole Blood 186 mg/dL (75-99)
[2017-10-17] MEDS: MORPHINE SULFATE 4 MG/0.8 ML SYRINGE (INJ) IVP PRN ×5 (02:10→20:15)
[2017-10-17 03:28] LABS: Glucose,Whole Blood 170 mg/dL (75-99)
[2017-10-17 03:56] LABS: Glucose,Whole Blood 172 mg/dL (75-99)
[2017-10-17 04:40] LABS: Anion Gap 11 mmol/L; Basophils # (A) 0.1 k/uL (0-0.2); Basophils % (A) 1 %; Blood Urea Nitrogen 39 mg/dL (9-20); Calcium 8.7 mg/dL (8.4-10.2); Carbon Dioxide 23 mmol/L (22-30); Chloride 115 mmol/L (98-107); Eosinophils # (A) 0.2 k/uL (0-0.7); Eosinophils % (A) 2 %; Glucose 167 mg/dL (74-99); HCT 31.2 % (39.0-53.0); HGB 9.6 gm/dL (13.0-17.5); Lymphocytes # (A) 1.4 k/uL (1.0-4.8); Lymphocytes % (A) 10 %; MCH 27.8 pg (25.0-35.0); MCHC 30.8 g/dL (31.0-37.0); MCV 90.2 fL (80.0-100.0); Magnesium 2.2 mg/dL (1.6-2.3); Mean Platelet Volume 7.9; Monocytes # (A) 0.9 k/uL (0-1.0); Monocytes % (A) 6 %; Neutrophils % (A) 80 %; Phosphorus 3.1 mg/dL (2.5-4.5); Platelet Count 304 k/uL (150-450); Potassium 3.5 mmol/L (3.5-5.1); RBC 3.46 m/uL (4.30-5.90); RDW 14.2 % (11.5-15.5); Sodium 149 mmol/L (137-145); WBC 13.8 k/uL (3.8-10.6)
[2017-10-17 04:51] LABS: Glucose,Whole Blood 155 mg/dL (75-99)
[2017-10-17] MEDS ORDERED: Potassium Replacement Protocol 1 EACH MISC MISCELLANE PRN (05:15)
[2017-10-17] MEDS: POTASSIUM BICARBONATE/CIT AC 20 MEQ TABLET.EFF NG-TUBE SCH ×2 (05:39→07:14)
[2017-10-17 06:07] LABS: Glucose,Whole Blood 158 mg/dL (75-99)
[2017-10-17] MEDS: DEXTROSE 5%-0.45% NACL 1,000 ML IV SCH ×2 (07:02→16:41)
[2017-10-17 07:06] LABS: Glucose,Whole Blood 149 mg/dL (75-99)
[2017-10-17] MEDS: LEVOTHYROXINE 75 MCG TAB PO SCH ×2 (07:15→08:32)
[2017-10-17 07:27] LABS: ABG Base Excess 0.8 mmol/L; ABG HCO3 26 mmol/L (21-25); ABG Oxygen Saturation 94.6 % (94-97); ABG PCO2 40 mmHg (35-45); ABG PH 7.41 (7.35-7.45); ABG PO2 70 mmHg (83-108); ABG TCO2 27 mmol/L (19-24)
--- NOTE | 2017-10-17 07:34 | XR ---
EXAMINATION TYPE: XR chest 1V portable DATE OF EXAM: 10/17/2017 COMPARISON: 10/16/2017 HISTORY: Shortness of breath TECHNIQUE: Single frontal view of the chest is obtained. FINDINGS: There is unchanged positioning of the endotracheal tube and enteric tubes. Lung apices are not visualized. There are small pleural effusions blunting the costophrenic angles, left greater phoebe n right with associated bibasilar airspace disease. Scattered linear right basilar atelectasis, right hemidiaphragm, and cardiomegaly are unchanged. Patchy central alveolar opacities are also seen bilat erally. IMPRESSION: Similar-appearing exam to the prior. Findings favor underlying decompensated congestive heart failure.
[2017-10-17 08:18] LABS: Glucose,Whole Blood 156 mg/dL (75-99)
[2017-10-17] MEDS: GABAPENTIN 300 MG CAP PO SCH (08:33)
[2017-10-17] MEDS: NON-FORMULARY DRUG (Empagliflozin [Jardiance] 25 MG) PO SCH (08:33)
[2017-10-17] MEDS: CHLORHEXIDINE GLUCONATE 15 ML CUP MUCOUS MEM SCH ×2 (08:33→19:51)
[2017-10-17] MEDS: PANTOPRAZOLE 40 MG/10 ML VIAL IV SCH (08:34)
[2017-10-17] MEDS: METOPROLOL TARTRATE 25 MG TAB PO SCH ×2 (08:34→19:51)
[2017-10-17] MEDS: PREGABALIN 100 MG CAP PO SCH ×3 (08:34→22:40)
[2017-10-17 09:12] LABS: Glucose,Whole Blood 162 mg/dL (75-99)
--- NOTE | 2017-10-17 09:41 | P.PN ---
Subjective Progress Note Date: 10/17/17 Principal diagnosis: s/p I and D of Left Ankle septic arthritis, abcess, cellulitis This is a 52 year-old male status post repeat irrigation and debridement left ankle joint with wound VAC application. This is post-op day 1. Patient remains intubated. His pain appears controlled at this time and appears that he is NAD. Objective - Vital Signs Vital signs: Vital Signs Temp 98.9 F 10/17/17 09:00 Pulse 78 10/17/17 09:00 Resp 26 H 10/17/17 09:00 BP 138/71 10/17/17 09:00 Pulse Ox 94 L 10/17/17 09:00 Intake & Output 10/16/17 10/17/17 10/17/17 18:59 06:59 18:59 Intake Total 144.705 5615.670 324.277 Output Total 3180 1705 1050 Balance -2335.287 208.670 -725.723 Weight 160.3 kg 161 kg 161 kg Intake: IV 371 1100 100 Dextrose 5%-0.45% NaCl 1, 1100 100 000 ml @ 100 mls/hr IV . Q10H [facility] Rx#:[id number] Sodium Chloride 0.9% 1, 70 000 ml @ 70 mls/hr IV . [id number] [facility] Rx#:[id number] Intake, IV Titration 473.713 533.670 224.277 Amount Insulin Regular 100 unit 45.273 43.083 42.117 In Sodium Chloride 0.9% 100 ml @ Per Protocol IV .Q0M [facility] Rx#:[id number] Propofol 1,000 mg In 428.44 490.587 182.16 Empty Bag 1 bag @ Titrate IV .Q0M KAI Rx#: [id number] Tube Feeding 280 Output: Drainage 400 400 Left Ankle 400 400 Urine 2730 1705 650 Estimated Blood Loss 50 Other: Voiding Method Indwelling Catheter Indwelling Catheter Indwelling Catheter # Voids 1 1 ABP, PAP, CO, CI - Last Documented Arterial Blood Pressure 160/64 - Exam The patient does not appear in acute distress. Left Ankle: Bandage and wound vacs x [address]. There is no active bleeding or purulence. . Calf is soft and nontender. Perfusion into the digits remains iuntact. No evidence of ascending infection - Constitutional General appearance: Present: no acute distress - Labs CBC & Chem 7: 10/17/17 04:00 10/17/17 04:00 Labs: Abnormal Lab Results - Last 24 Hours (Table) 10/16/17 10/16/17 10/16/17 Range/Units 10:05 12:06 14:53 WBC (3.8-10.6) k/uL RBC (4.30-5.90) m/uL Hgb (13.0-17.5) gm/dL Hct (39.0-53.0) % MCHC (31.0-37.0) g/dL Neutrophils # (1.3-7.7) k/uL ABG pO2 (83-108) mmHg ABG HCO3 (21-25) mmol/L ABG Total CO2 (19-24) mmol/L Sodium (137-145) mmol/L Chloride (98-107) mmol/L BUN (9-20) mg/dL Glucose (74-99) mg/dL POC Glucose (mg/dL) 155 H 186 H 210 H (75-99) mg/dL 10/16/17 10/16/17 10/16/17 Range/Units 16:21 17:00 18:01 WBC (3.8-10.6) k/uL RBC (4.30-5.90) m/uL Hgb (13.0-17.5) gm/dL Hct (39.0-53.0) % MCHC (31.0-37.0) g/dL Neutrophils # (1.3-7.7) k/uL ABG pO2 (83-108) mmHg ABG HCO3 (21-25) mmol/L ABG Total CO2 (19-24) mmol/L Sodium (137-145) mmol/L Chloride (98-107) mmol/L BUN (9-20) mg/dL Glucose (74-99) mg/dL POC Glucose (mg/dL) 186 H 204 H 209 H (75-99) mg/dL 10/16/17 10/16/17 10/16/17 Range/Units 19:00 20:07 20:54 WBC (3.8-10.6) k/uL RBC (4.30-5.90) m/uL Hgb (13.0-17.5) gm/dL Hct (39.0-53.0) % MCHC (31.0-37.0) g/dL Neutrophils # (1.3-7.7) k/uL ABG pO2 (83-108) mmHg ABG HCO3 (21-25) mmol/L ABG Total CO2 (19-24) mmol/L Sodium (137-145) mmol/L Chloride (98-107) mmol/L BUN (9-20) mg/dL Glucose (74-99) mg/dL POC Glucose (mg/dL) 150 H 165 H 166 H (75-99) mg/dL 10/16/17 10/16/17 10/16/17 Range/Units 22:11 22:56 23:53 WBC (3.8-10.6) k/uL RBC (4.30-5.90) m/uL Hgb (13.0-17.5) gm/dL Hct (39.0-53.0) % MCHC (31.0-37.0) g/dL Neutrophils # (1.3-7.7) k/uL ABG pO2 (83-108) mmHg ABG HCO3 (21-25) mmol/L ABG Total CO2 (19-24) mmol/L Sodium (137-145) mmol/L Chloride (98-107) mmol/L BUN (9-20) mg/dL Glucose (74-99) mg/dL POC Glucose (mg/dL) 201 H 187 H 185 H (75-99) mg/dL 10/17/17 10/17/17 10/17/17 Range/Units 01:08 01:53 03:26 WBC (3.8-10.6) k/uL RBC (4.30-5.90) m/uL Hgb (13.0-17.5) gm/dL Hct (39.0-53.0) % MCHC (31.0-37.0) g/dL Neutrophils # (1.3-7.7) k/uL ABG pO2 (83-108) mmHg ABG HCO3 (21-25) mmol/L ABG Total CO2 (19-24) mmol/L Sodium (137-145) mmol/L Chloride (98-107) mmol/L BUN (9-20) mg/dL Glucose (74-99) mg/dL POC Glucose (mg/dL) 226 H 186 H 170 H (75-99) mg/dL 10/17/17 10/17/17 10/17/17 Range/Units 03:55 04:00 04:00 WBC 13.8 H (3.8-10.6) k/uL RBC 3.46 L (4.30-5.90) m/uL Hgb 9.6 L (13.0-17.5) gm/dL Hct 31.2 L (39.0-53.0) % MCHC 30.8 L (31.0-37.0) g/dL Neutrophils # 11.0 H (1.3-7.7) k/uL ABG pO2 (83-108) mmHg ABG HCO3 (21-25) mmol/L ABG Total CO2 (19-24) mmol/L Sodium 149 H (137-145) mmol/L Chloride 115 H (98-107) mmol/L BUN 39 H (9-20) mg/dL Glucose 167 H (74-99) mg/dL POC Glucose (mg/dL) 172 H (75-99) mg/dL 10/17/17 10/17/17 10/17/17 Range/Units 04:50 06:05 07:05 WBC (3.8-10.6) k/uL RBC (4.30-5.90) m/uL Hgb (13.0-17.5) gm/dL Hct (39.0-53.0) % MCHC (31.0-37.0) g/dL Neutrophils # (1.3-7.7) k/uL ABG pO2 (83-108) mmHg ABG HCO3 (21-25) mmol/L ABG Total CO2 (19-24) mmol/L Sodium (137-145) mmol/L Chloride (98-107) mmol/L BUN (9-20) mg/dL Glucose (74-99) mg/dL POC Glucose (mg/dL) 155 H 158 H 149 H (75-99) mg/dL 10/17/17 10/17/17 10/17/17 Range/Units 07:25 08:16 09:11 WBC (3.8-10.6) k/uL RBC (4.30-5.90) m/uL Hgb (13.0-17.5) gm/dL Hct (39.0-53.0) % MCHC (31.0-37.0) g/dL Neutrophils # (1.3-7.7) k/uL ABG pO2 70 L (83-108) mmHg ABG HCO3 26 H (21-25) mmol/L ABG Total CO2 27 H (19-24) mmol/L Sodium (137-145) mmol/L Chloride (98-107) mmol/L BUN (9-20) mg/dL Glucose (74-99) mg/dL POC Glucose (mg/dL) 156 H 162 H (75-99) mg/dL Microbiology - Last 24 Hours (Table) 10/13/17 08:45 Blood Culture Gram Stain - Final Blood Blood Culture - Final Staphylococcus aureus 10/12/17 19:48 Anaerobic Culture - Final Ankle - Left 10/12/17 19:48 Anaerobic Culture - Final Ankle - Left 10/15/17 05:15 Gram Stain - Preliminary Sputum Sputum Culture - Preliminary Jayne albicans 10/13/17 07:25 Blood Culture Gram Stain - Final Blood Blood Culture - Final Staphylococcus aureus Assessment and Plan (1) Sepsis Narrative/Plan: His wound appears stable. Wound vacs are in place and no evidence of bleeding or drainage through bandage. Wound vac output was 400 cc over last 20 hrs. No evidence of worsening infection is seen this morning. Continue IV antibiotics and wound care per ID. Medical management per plc engineer/IM. We will continue to monitor closely and make further recommendations as appropriate. Current Visit: Yes Status: Acute Priority: Medium Code(s): A41.9 - SEPSIS , UNSPECIFIED ORGANISM SNOMED Code(s): 48041922 (2) Cellulitis Current Visit: No Status: Acute Priority: Medium Code(s): L03.90 - CELLULITIS, UNSPECIFIED SNOMED Code(s): 834080892 (3) Diabetic foot ulcer associated with type 2 diabetes mellitus Current Visit: No Status: Acute Code(s): E11.621 - TYPE 2 DIABETES MELLITUS WITH FOOT ULCER SNOMED Code(s): 554023266
--- NOTE | 2017-10-17 10:02 | P.PN ---
Subjective Patient is seen in follow-up for acute kidney injury. Creatinine peaked at 2.1 this admission and is down to 0.9 today. Sodium level is stable at 149. He remains intubated and sedated. He is currently being treated for septic arthritis and has undergone debridement of the left ankle as well as wound VAC placement. Cultures are positive for staph species. He is nonoliguric. Hemodynamically stable. He is maintained on tube feeding. Vital signs are stable. General: The patient appeared well nourished and normally developed. Intubated. HEENT: Head exam is unremarkable. Neck is without jugular venous distension. LUNGS: Lungs are clear to auscultation and percussion. Breath sounds decreased. HEART: Rate and Rhythm are regular. First and second heart sounds normal. No murmurs, rubs or gallops. ABDOMEN: Abdominal exam reveals normal bowel sounds. Non-tender and non- distended. No evidence of peritonitis. EXTREMITITES: 1+ edema. Left foot wrapped. Objective - Vital Signs Vital signs: Vital Signs Temp 98.9 F 10/17/17 09:00 Pulse 78 10/17/17 09:00 Resp 26 H 10/17/17 09:00 BP 138/71 10/17/17 09:00 Pulse Ox 94 L 10/17/17 09:00 Intake & Output 10/16/17 10/17/17 10/17/17 18:59 06:59 18:59 Intake Total 504.823 8879.670 409.597 Output Total 3180 1705 1050 Balance -2335.287 208.670 -640.403 Weight 160.3 kg 161 kg 161 kg Intake: IV 371 1100 100 Dextrose 5%-0.45% NaCl 1, 1100 100 000 ml @ 100 mls/hr IV . Q10H [facility] Rx#:[id number] Sodium Chloride 0.9% 1, 70 000 ml @ 70 mls/hr IV . [id number] [facility] Rx#:[id number] Intake, IV Titration 473.713 533.670 309.597 Amount Insulin Regular 100 unit 45.273 43.083 42.117 In Sodium Chloride 0.9% 100 ml @ Per Protocol IV .Q0M [facility] Rx#:[id number] Propofol 1,000 mg In 428.44 490.587 267.48 Empty Bag 1 bag @ Titrate IV .Q0M [facility] Rx#: [id number] Tube Feeding 280 Output: Drainage 400 400 Left Ankle 400 400 Urine 2730 1705 650 Estimated Blood Loss 50 Other: Voiding Method Indwelling Catheter Indwelling Catheter Indwelling Catheter # Voids 1 1 ABP, PAP, CO, CI - Last Documented Arterial Blood Pressure 160/64 - Labs CBC & Chem 7: 10/17/17 04:00 10/17/17 04:00 Labs: Abnormal Lab Results - Last 24 Hours (Table) 10/16/17 10/16/17 10/16/17 Range/Units 10:05 12:06 14:53 WBC (3.8-10.6) k/uL RBC (4.30-5.90) m/uL Hgb (13.0-17.5) gm/dL Hct (39.0-53.0) % MCHC (31.0-37.0) g/dL Neutrophils # (1.3-7.7) k/uL ABG pO2 (83-108) mmHg ABG HCO3 (21-25) mmol/L ABG Total CO2 (19-24) mmol/L Sodium (137-145) mmol/L Chloride (98-107) mmol/L BUN (9-20) mg/dL Glucose (74-99) mg/dL POC Glucose (mg/dL) 155 H 186 H 210 H (75-99) mg/dL 10/16/17 10/16/17 10/16/17 Range/Units 16:21 17:00 18:01 WBC (3.8-10.6) k/uL RBC (4.30-5.90) m/uL Hgb (13.0-17.5) gm/dL Hct (39.0-53.0) % MCHC (31.0-37.0) g/dL Neutrophils # (1.3-7.7) k/uL ABG pO2 (83-108) mmHg ABG HCO3 (21-25) mmol/L ABG Total CO2 (19-24) mmol/L Sodium (137-145) mmol/L Chloride (98-107) mmol/L BUN (9-20) mg/dL Glucose (74-99) mg/dL POC Glucose (mg/dL) 186 H 204 H 209 H (75-99) mg/dL 04/10/16/17 10/16/17 Range/Units 19:00 20:07 20:54 WBC (3.8-10.6) k/uL RBC (4.30-5.90) m/uL Hgb (13.0-17.5) gm/dL Hct (39.0-53.0) % MCHC (31.0-37.0) g/dL Neutrophils # (1.3-7.7) k/uL ABG pO2 (83-108) mmHg ABG HCO3 (21-25) mmol/L ABG Total CO2 (19-24) mmol/L Sodium (137-145) mmol/L Chloride (98-107) mmol/L BUN (9-20) mg/dL Glucose (74-99) mg/dL POC Glucose (mg/dL) 150 H 165 H 166 H (75-99) mg/dL 10/16/17 10/16/17 10/16/17 Range/Units 22:11 22:56 23:53 WBC (3.8-10.6) k/uL RBC (4.30-5.90) m/uL Hgb (13.0-17.5) gm/dL Hct (39.0-53.0) % MCHC (31.0-37.0) g/dL Neutrophils # (1.3-7.7) k/uL ABG pO2 (83-108) mmHg ABG HCO3 (21-25) mmol/L ABG Total CO2 (19-24) mmol/L Sodium (137-145) mmol/L Chloride (98-107) mmol/L BUN (9-20) mg/dL Glucose (74-99) mg/dL POC Glucose (mg/dL) 201 H 187 H 185 H (75-99) mg/dL 10/17/17 10/17/17 10/17/17 Range/Units 01:08 01:53 03:26 WBC (3.8-10.6) k/uL RBC (4.30-5.90) m/uL Hgb (13.0-17.5) gm/dL Hct (39.0-53.0) % MCHC (31.0-37.0) g/dL Neutrophils # (1.3-7.7) k/uL ABG pO2 (83-108) mmHg ABG HCO3 (21-25) mmol/L ABG Total CO2 (19-24) mmol/L Sodium (137-145) mmol/L Chloride (98-107) mmol/L BUN (9-20) mg/dL Glucose (74-99) mg/dL POC Glucose (mg/dL) 226 H 186 H 170 H (75-99) mg/dL 10/17/17 10/17/17 10/17/17 Range/Units 03:55 04:00 04:00 WBC 13.8 H (3.8-10.6) k/uL RBC 3.46 L (4.30-5.90) m/uL Hgb 9.6 L (13.0-17.5) gm/dL Hct 31.2 L (39.0-53.0) % MCHC 30.8 L (31.0-37.0) g/dL Neutrophils # 11.0 H (1.3-7.7) k/uL ABG pO2 (83-108) mmHg ABG HCO3 (21-25) mmol/L ABG Total CO2 (19-24) mmol/L Sodium 149 H (137-145) mmol/L Chloride 115 H (98-107) mmol/L BUN 39 H (9-20) mg/dL Glucose 167 H (74-99) mg/dL POC Glucose (mg/dL) 172 H (75-99) mg/dL 10/17/17 10/17/17 10/17/17 Range/Units 04:50 06:05 07:05 WBC (3.8-10.6) k/uL RBC (4.30-5.90) m/uL Hgb (13.0-17.5) gm/dL Hct (39.0-53.0) % MCHC (31.0-37.0) g/dL Neutrophils # (1.3-7.7) k/uL ABG pO2 (83-108) mmHg ABG HCO3 (21-25) mmol/L ABG Total CO2 (19-24) mmol/L Sodium (137-145) mmol/L Chloride (98-107) mmol/L BUN (9-20) mg/dL Glucose (74-99) mg/dL POC Glucose (mg/dL) 155 H 158 H 149 H (75-99) mg/dL 10/17/17 10/17/17 10/17/17 Range/Units 07:25 08:16 09:11 WBC (3.8-10.6) k/uL RBC (4.30-5.90) m/uL Hgb (13.0-17.5) gm/dL Hct (39.0-53.0) % MCHC (31.0-37.0) g/dL Neutrophils # (1.3-7.7) k/uL ABG pO2 70 L (83-108) mmHg ABG HCO3 26 H (21-25) mmol/L ABG Total CO2 27 H (19-24) mmol/L Sodium (137-145) mmol/L Chloride (98-107) mmol/L BUN (9-20) mg/dL Glucose (74-99) mg/dL POC Glucose (mg/dL) 156 H 162 H (75-99) mg/dL Microbiology - Last 24 Hours (Table) 10/15/17 05:15 Gram Stain - Final Sputum Sputum Culture - Final Jayne albicans 10/13/17 08:45 Blood Culture Gram Stain - Final Blood Blood Culture - Final Staphylococcus aureus 10/12/17 19:48 Anaerobic Culture - Final Ankle - Left 10/12/17 19:48 Anaerobic Culture - Final Ankle - Left 10/13/17 07:25 Blood Culture Gram Stain - Final Blood Blood Culture - Final Staphylococcus aureus Assessment and Plan Plan: Assessment: #1. Nonoliguric acute kidney injury secondary to ATN secondary to severe sepsis and hemodynamic instability. Creatinine peaked at 2.1 this admission and is down to 0.9 today. #2. Severe sepsis secondary to septic arthritis status post a Brightman and wound VAC placement. Fluid culture as well as blood culture positive for staph aureus. #3. Insulin-dependent diabetes mellitus. #4. Acute hypercapnic respiratory failure. Currently on ventilator. #5. Respiratory acidosis and metabolic acidosis. Concern for ARDS. #6. Hypernatremia secondary to free water losses from urine and lack of oral water intake. #7. Proteinuria. This is likely due to underlying diabetic kidney disease. #8. Hypokalemia from poor oral intake and urinary losses. Magnesium and replete. Plan: Agree with changing IV fluids to D5W to be run at 75 mL an hour. Continue with tube feeds. Free water flushes 300 mL every 4 hours. Antibiotics per infectious disease recommendations. Avoid nephrotoxic agents and hypotensive episodes. Continue to monitor renal function and urine output. Wean FiO2. Recheck sodium at 5 PM today. Potassium has been replaced.
[2017-10-17] MEDS: INSULIN REGULAR 100 UNIT in SODIUM CHLORIDE 0.9% 100 ML IV SCH ×2 (10:07→18:05)
[2017-10-17 10:08] LABS: Glucose,Whole Blood 159 mg/dL (75-99)
[2017-10-17] MEDS: hydrALAZINE HCL 20 MG/ML 1 ML VIAL IVP PRN (10:21)
--- NOTE | 2017-10-17 11:06 | P.PN ---
Subjective Progress Note Date: 10/17/17 Principal diagnosis: Acute sepsis secondary to septic arthritis of the left ankle and MSSA bacteremia. This is a 52-year-old male patient, diabetic, known history of severe peripheral neuropathy, charcoal joints and previous amputation of the right foot , partial, presenting again today to the hospital because of pain and swelling following an ankle sprain on the left. The patient had been having progressive increase in swelling and pain in the left lower extremity mainly in the ankle area and there is increase in warmth. He came into the emergency department. He was seen by orthopedic surgery. The fluid joints was aspirated and the results are still pending for now. Meanwhile he became progressively more septic and he got transferred to the intensive care unit because of increased tachycardia, tachypnea, right gutters and hypotension and diminished level of consciousness. Apparently the patient was hypoxic with a pulse ox of 80% on the floor. Upon arrival to the ICU he was placed on high flow oxygen initially at 5 L/m nasal cannula which brought his saturation above 90%. He had a temperature 104.2. His heart rate was 130s sinus. He was quite lethargic and dry. He was started on aggressive fluid resuscitation 2 L of bolus of being given right now. Blood cultures positive and I discussed the case with infectious disease and the patient will be switched to daptomycin. The patient will also go to the operating room for immediate I&D. The patient has elevated blood sugar and he will be started on insulin drip for blood sugar control. Chest x-ray post-line insertion showed some smaller lung volumes. No pneumothorax. Some early atelectatic changes in lung bases bilaterally. An art line catheter was also inserted. Subsequently blood gases showed a pH of 7.3 with a pCO2 of 47 and pO2 of 52 and the patient was placed on 100% nonrebreather facemask. On 10/11/2017, the patient is being seen in follow-up in the intensive care unit. The patient came in with a septic arthritis and sepsis to the intensive care unit. The patient was lethargic and septic looking in addition to fever tachycardia leukocytosis. He was also in acute hypoxic respiratory failure. He made resuscitation was done. Following that the patient got transferred to the operating room where the patient underwent irrigation and debridement of the left ankle joint and there was application of a wound VAC to the left ankle. The patient is currently back to the intensive care unit. This morning is awake and alert. He is following commands and answering questions. He is on high flow oxygen at 12 L/m nasal cannula and this will be gradually weaned down as the patient's oxidation is improved. Denies having any respiratory distress. He is less tachycardic compared to yesterday. He did not require any pressors. The blood cultures positive for staph aureus. The patient is currently on daptomycin. He is also on IV Zosyn. A wound VAC is applied to the left foot. His blood sugars under better control with an insulin drip. He is morbidly obese. Denies having any complaints. No chest pain. No shortness of breath. No altered mentation. No other complaints otherwise for now. His white cell count remains elevated at 20.8. He did suffer an acute kidney injury in the creatinine is up to 2. The patient continues to be an IV fluids and is producing adequate amount of urine output. The neck fluid balance is + 3.5 L over the past 24 hours. Patient was reevaluated today on 10/14/2017, remains in the ICU, hemodynamically stable, chest x-ray is showing some worsening, and he seems to be demonstrating a bit more shortness of breath. Urine output has been marginal. And his chest x-ray is showing interstitial edema could very well be noncardiogenic in nature. Hence I have recommended starting the patient on BiPAP with IPAP of 12 EPAP of 4 and I recommended a dose of Lasix 40 mg IV push. CBC showed leukocytosis but improving compared to admission and his basic metabolic profile is normal. BUN is 59 and creatinine is 2.10. Apparently his renal functioning is worsening even prior to giving him any diuretics. Patient remains on daptomycin and Zosyn as per infectious disease on the case. Reevaluated today on 10/15/2017, patient took a downhill course last night, and he required intubation and mechanical ventilation. Patient went on to develop relative hypoxemia and worsening hypercapnia, worsening chest x-ray pointing to mild ARDS based on the [place] criteria. PaO2/FiO2, was calculated to be 263 again that is pointing to a mild ARDS as per the [place] criteria. His ABG showed a pO2 of 158 pCO2 of 51 pH of 7.26 and this was on the 60% FiO2. Hence The patient on the same tidal volume which is 500 and his respiratory rate is up to 26. Noted on the ventilator and the patient was having ineffective trigger, and dyssynchrony with the ventilator, hence with slightly more sedation we corrected the problem easily. All the labs were reviewed today, WBC count of 13.6 hemoglobin is 9.6 and his basic metabolic profile was also reviewed, his creatinine is 2.0) very close to his baseline in the last few days chest x-ray was also reviewed, showing bibasilar interstitial infiltrates, but left more so than right. Nutrition was addressed, and the patient will be started on enteral feeding. Reevaluated today on 10/16/2017, remains on mechanical ventilation, the ventilator settings are basically the same, and reviewed his airway mechanics, seems to be improving. ABG this morning showed a pO2 of 104 pCO2 of 40 pH of 7.37. All labs were reviewed, renal profile is improving, sodium is up to 149, hence we'll change the main IV fluid to D5 45, and we will give free water flushes via nasogastric tube with the feedings. WBC count is 12.6 hemoglobin is 9.9. Chest x-ray continues to show by basilar infiltrates. And interstitial pattern consistent with ARDS. PaO2/FiO2 is calculated to be at 260. Again that's consistent with a mild ARDS based on that [place] criteria. I was considering weaning trial today, however considering the patient is going back to surgery today, and this is scheduled sometime this afternoon, I would hold on the weaning trial today, and explained to the that it would be best to wait for another day since surgery is scheduled this afternoon. In the meantime we'll continue antibiotics as per infectious disease on the case. Patient is now on Kefzol 2 g every 8. Remains on GI and DVT prophylaxis. Reevaluated today on 10/17/2017, remains on mechanical ventilation, same ventilator settings, unchanged. Chest x-ray is basically about the same. ABG showed a pO2 of 70 pCO2 of 40 pH of 7.41 and this was on 40% FiO2. Electrolytes were reviewed, sodium remains elevated at 149, and this is in spite of changing his IV fluid and free water boluses given via nasogastric tube. The dose of free water will be increased, and the main IV fluid will be changed to D5W today. However his renal functioning seems to be improving BUN is down to 39 and creatinine is down to 0.90. Patient was awakened, propofol was discontinued, however as he came off sedation, patient was extremely agitated, restless, he was gagging on the endotracheal tube, and his respiratory rate was in the 40s. Patient did follow simple instructions, and clearly felt that he is not ready to be weaned and extubated at this point. His blood pressure went up as high as 220. Hence no further weaning trials were made, patient was placed back on assist control mode of mechanical ventilation, and at this point I felt it is not ready for weaning. He'll be placed back on propofol and sedation. The chest x-ray again was reviewed and findings are pointing to ARDS. The PaO2/FiO2 seems to be lower today, and now it seems to be a picture of moderate ARDS. Objective - Vital Signs Vital signs: Vital Signs Temp 98.9 F 10/17/17 10:00 Pulse 73 10/17/17 10:00 Resp 25 H 10/17/17 10:00 BP 137/71 10/17/17 10:00 Pulse Ox 94 L 10/17/17 10:00 Intake & Output 10/16/17 10/17/17 10/17/17 18:59 06:59 18:59 Intake Total 359.881 8053.670 417.187 Output Total 3180 1705 1225 Balance -2335.287 208.670 -807.813 Weight 160.3 kg 161 kg 161 kg Intake: IV 371 1100 100 Dextrose 5%-0.45% NaCl 1, 1100 100 000 ml @ 100 mls/hr IV . Q10H [facility] Rx#:[id number] Sodium Chloride 0.9% 1, 70 000 ml @ 70 mls/hr IV . [id number] [facility] Rx#:[id number] Intake, IV Titration 473.713 533.670 317.187 Amount Insulin Regular 100 unit 45.273 43.083 42.117 In Sodium Chloride 0.9% 100 ml @ Per Protocol IV .Q0M [facility] Rx#:[id number] Propofol 1,000 mg In 428.44 490.587 275.07 Empty Bag 1 bag @ Titrate IV .Q0M [facility] Rx#: [id number] Tube Feeding 280 Output: Drainage 400 400 Left Ankle 400 400 Urine 2730 1705 825 Estimated Blood Loss 50 Other: Voiding Method Indwelling Catheter Indwelling Catheter Indwelling Catheter # Voids 1 1 ABP, PAP, CO, CI - Last Documented Arterial Blood Pressure 154/65 - Exam Physical Exam: Revealed a 52-year-old white male, obese, resting on mechanical ventilation, in no distress. On propofol drip. However he was noted to be extremely tachypneic tachycardic hypertensive agitated off propofol. Head: Atraumatic, normocephalic. Endotracheal tube is intact HEENT:[Neck is supple.] [No neck masses.] [No thyromegaly.] [No JVD.] Chest: [Crackles and rhonchi noted at the bases, no wheezes, no chest wall tenderness.] Cardiac Exam: [Normal S1 and S2, no S3 gallop, no murmur.] Abdomen: [Obese, Soft, nontender, no megaly, no rebound, no guarding, normal bowel sounds.] Extremities: left ankle is wrapped with sterile dressing, going back to surgery today on his left ankle Neurological Exam: Fully sedated on propofol drip, opens eyes to deep stimuli. Extremely restless on propofol. But followed simple instructions Psychiatric: Cannot be fully assessed. Lymphatics: No lymphadenopathy - Labs CBC & Chem 7: 10/17/17 04:00 10/17/17 04:00 Labs: Abnormal Lab Results - Last 24 Hours (Table) 10/16/17 10/16/17 10/16/17 Range/Units 12:06 14:53 16:21 WBC (3.8-10.6) k/uL RBC (4.30-5.90) m/uL Hgb (13.0-17.5) gm/dL Hct (39.0-53.0) % MCHC (31.0-37.0) g/dL Neutrophils # (1.3-7.7) k/uL ABG pO2 (83-108) mmHg ABG HCO3 (21-25) mmol/L ABG Total CO2 (19-24) mmol/L Sodium (137-145) mmol/L Chloride (98-107) mmol/L BUN (9-20) mg/dL Glucose (74-99) mg/dL POC Glucose (mg/dL) 186 H 210 H 186 H (75-99) mg/dL 10/16/17 10/16/17 10/16/17 Range/Units 17:00 18:01 19:00 WBC (3.8-10.6) k/uL RBC (4.30-5.90) m/uL Hgb (13.0-17.5) gm/dL Hct (39.0-53.0) % MCHC (31.0-37.0) g/dL Neutrophils # (1.3-7.7) k/uL ABG pO2 (83-108) mmHg ABG HCO3 (21-25) mmol/L ABG Total CO2 (19-24) mmol/L Sodium (137-145) mmol/L Chloride (98-107) mmol/L BUN (9-20) mg/dL Glucose (74-99) mg/dL POC Glucose (mg/dL) 204 H 209 H 150 H (75-99) mg/dL 10/16/17 10/16/17 10/16/17 Range/Units 20:07 20:54 22:11 WBC (3.8-10.6) k/uL RBC (4.30-5.90) m/uL Hgb (13.0-17.5) gm/dL Hct (39.0-53.0) % MCHC (31.0-37.0) g/dL Neutrophils # (1.3-7.7) k/uL ABG pO2 (83-108) mmHg ABG HCO3 (21-25) mmol/L ABG Total CO2 (19-24) mmol/L Sodium (137-145) mmol/L Chloride (98-107) mmol/L BUN (9-20) mg/dL Glucose (74-99) mg/dL POC Glucose (mg/dL) 165 H 166 H 201 H (75-99) mg/dL 10/16/17 10/16/17 10/17/17 Range/Units 22:56 23:53 01:08 WBC (3.8-10.6) k/uL RBC (4.30-5.90) m/uL Hgb (13.0-17.5) gm/dL Hct (39.0-53.0) % MCHC (31.0-37.0) g/dL Neutrophils # (1.3-7.7) k/uL ABG pO2 (83-108) mmHg ABG HCO3 (21-25) mmol/L ABG Total CO2 (19-24) mmol/L Sodium (137-145) mmol/L Chloride (98-107) mmol/L BUN (9-20) mg/dL Glucose (74-99) mg/dL POC Glucose (mg/dL) 187 H 185 H 226 H (75-99) mg/dL 10/17/17 10/17/17 10/17/17 Range/Units 01:53 03:26 03:55 WBC (3.8-10.6) k/uL RBC (4.30-5.90) m/uL Hgb (13.0-17.5) gm/dL Hct (39.0-53.0) % MCHC (31.0-37.0) g/dL Neutrophils # (1.3-7.7) k/uL ABG pO2 (83-108) mmHg ABG HCO3 (21-25) mmol/L ABG Total CO2 (19-24) mmol/L Sodium (137-145) mmol/L Chloride (98-107) mmol/L BUN (9-20) mg/dL Glucose (74-99) mg/dL POC Glucose (mg/dL) 186 H 170 H 172 H (75-99) mg/dL 10/17/17 10/17/17 10/17/17 Range/Units 04:00 04:00 04:50 WBC 13.8 H (3.8-10.6) k/uL RBC 3.46 L (4.30-5.90) m/uL Hgb 9.6 L (13.0-17.5) gm/dL Hct 31.2 L (39.0-53.0) % MCHC 30.8 L (31.0-37.0) g/dL Neutrophils # 11.0 H (1.3-7.7) k/uL ABG pO2 (83-108) mmHg ABG HCO3 (21-25) mmol/L ABG Total CO2 (19-24) mmol/L Sodium 149 H (137-145) mmol/L Chloride 115 H (98-107) mmol/L BUN 39 H (9-20) mg/dL Glucose 167 H (74-99) mg/dL POC Glucose (mg/dL) 155 H (75-99) mg/dL 10/17/17 10/17/17 10/17/17 Range/Units 06:05 07:05 07:25 WBC (3.8-10.6) k/uL RBC (4.30-5.90) m/uL Hgb (13.0-17.5) gm/dL Hct (39.0-53.0) % MCHC (31.0-37.0) g/dL Neutrophils # (1.3-7.7) k/uL ABG pO2 70 L (83-108) mmHg ABG HCO3 26 H (21-25) mmol/L ABG Total CO2 27 H (19-24) mmol/L Sodium (137-145) mmol/L Chloride (98-107) mmol/L BUN (9-20) mg/dL Glucose (74-99) mg/dL POC Glucose (mg/dL) 158 H 149 H (75-99) mg/dL 10/17/17 10/17/17 10/17/17 Range/Units 08:16 09:11 10:05 WBC (3.8-10.6) k/uL RBC (4.30-5.90) m/uL Hgb (13.0-17.5) gm/dL Hct (39.0-53.0) % MCHC (31.0-37.0) g/dL Neutrophils # (1.3-7.7) k/uL ABG pO2 (83-108) mmHg ABG HCO3 (21-25) mmol/L ABG Total CO2 (19-24) mmol/L Sodium (137-145) mmol/L Chloride (98-107) mmol/L BUN (9-20) mg/dL Glucose (74-99) mg/dL POC Glucose (mg/dL) 156 H 162 H 159 H (75-99) mg/dL Microbiology - Last 24 Hours (Table) 10/15/17 05:15 Gram Stain - Final Sputum Sputum Culture - Final Jayne albicans 10/13/17 08:45 Blood Culture Gram Stain - Final Blood Blood Culture - Final Staphylococcus aureus 10/12/17 19:48 Anaerobic Culture - Final Ankle - Left 10/12/17 19:48 Anaerobic Culture - Final Ankle - Left 10/13/17 07:25 Blood Culture Gram Stain - Final Blood Blood Culture - Final Staphylococcus aureus Assessment and Plan Assessment: 1 acute septic arthritis of the left ankle, status post left ankle irrigation and debridement and the patient is postop day #5, patient underwent another irrigation and debridement on 10/16/2017 and he is postoperative day #1 2 acute severe sepsis secondary to above and the blood cultures positive for MSSA, presently on Kefzol 2 g every 8 3 acute fever and chills and leukocytosis and sinus tachycardia secondary to above 4 altered mental status secondary to above, improved 5 acute hypoxic and hypercapnic respiratory failure secondary to mild ARDS with PaO2/FiO2 ratio of 263. This is relatively mild based on the [place] criteria. Nonetheless, patient required intubation and mechanical ventilation last night. 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 17 acute hypernatremia secondary to free water deficit, this will be corrected by giving the patient more free water. Recommendation: Continue present supportive care measures, antibiotics /Kefzol continue to monitor closely in the ICU, continue mechanical ventilation, nutritional support, antibiotics, follow the protocol for ventilation in ARDS. Discussed his condition with at bedside. Patient is clearly not ready for weaning at this point, we'll continue mechanical ventilation. He will not be able to tolerate any spontaneous breathing trial based on his clinical status off propofol. May consider utilizing Precedex for weaning tomorrow. Critical care time is 40 minutes. Time with Patient: Greater than 30
[2017-10-17 11:08] LABS: Glucose,Whole Blood 164 mg/dL (75-99)
[2017-10-17 12:38] LABS: Glucose,Whole Blood 172 mg/dL (75-99)
[2017-10-17 13:11] LABS: Glucose,Whole Blood 176 mg/dL (75-99)
[2017-10-17 14:10] LABS: Glucose,Whole Blood 168 mg/dL (75-99)
[2017-10-17 15:02] LABS: Glucose,Whole Blood 174 mg/dL (75-99)
[2017-10-17 16:12] LABS: Glucose,Whole Blood 191 mg/dL (75-99)
[2017-10-17 17:02] LABS: Glucose,Whole Blood 192 mg/dL (75-99)
[2017-10-17] MEDS: DEXTROSE 5% IN WATER 1,000 ML IV SCH (17:04)
[2017-10-17 18:08] LABS: Glucose,Whole Blood 206 mg/dL (75-99)
[2017-10-17 19:00] LABS: Glucose,Whole Blood 187 mg/dL (75-99)
[2017-10-17] MEDS: ATORVASTATIN 40 MG TAB PO SCH (19:51)
[2017-10-17 20:03] LABS: Glucose,Whole Blood 178 mg/dL (75-99)
[2017-10-17 21:11] LABS: Glucose,Whole Blood 186 mg/dL (75-99)
[2017-10-17 21:58] LABS: Glucose,Whole Blood 171 mg/dL (75-99)
--- NOTE | 2017-10-17 22:25 | PN ---
PROGRESS NOTE DATE OF SERVICE: 10/17/2017 PRESENTING COMPLAINT: Sepsis. INTERVAL HISTORY: This patient I could not see yesterday; I went twice, but patient had gone to the OR. Patient was admitted with septic arthritis of the left ankle, status post I&D, cultures growing MSSA. He was taken for another washout yesterday. Patient has [address] Patient remains on the ventilator, FiO2 40 and a PEEP of 5. Also on propofol. Getting IV fluids. at the bedside. REVIEW OF SYSTEMS: Patient is intubated. CURRENT MEDICATIONS: Current medications include IV Ancef, IV fluids, IV propofol. PHYSICAL EXAMINATION: Afebrile. Pulse 75, respiration 25, blood pressure 120/65, pulse ox 97% on 40% FiO2. GENERAL APPEARANCE: Lying in bed, intubated. EYES: Pupils equal. Conjunctivae normal. HEENT: External appearance of nose and ears normal. Oral cavity with an endotracheal tube in place. NECK: JVD unable to assess. Mass not palpable. RESPIRATORY: Effort increased. LUNGS: Decreased breath sounds. CARDIOVASCULAR: First and second sounds normal. No edema. ABDOMEN: Distended, soft. Liver and spleen not palpable. Left ankle in a wound V.A.C. INVESTIGATIONS: White count 13.8, hemoglobin 9.6, potassium 3.5, BUN 39, creatinine 0.90. Accu-Cheks are noted. ASSESSMENT: 1. Septic arthritis, left ankle, present on admission causing severe sepsis, status post incision and drainage x2 with cultures growing methicillin-susceptible Staphylococcus aeruginosa with a wound V.A.C. in place. 2. Acute delirium from septic encephalopathy, present on admission. 3. 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 4. Gastroesophageal reflux disease. 5. Hypertensive shock. Patient is status post pressor support, now corrected. 6. History of essential hypertension. 7. Diabetes mellitus, type 2, uncontrolled with hyperglycemia. Remains on insulin drip. 8. Hypothyroid. 9. Peripheral neuropathy from diabetes. 10.Hiatal hernia. 11.Hyperlipidemia. 12.Morbid obesity with body mass index of 42.9. 13.Moderate ARDS from underlying sepsis leading to acute hypoxic respiratory failure, now requiring ventilator support. FiO2 has come down to 40%. 14.Acute renal failure, likely from acute tubular necrosis from sepsis, beginning to improve. 15.Left ankle Charcot joint. 16.Hypernatremia due to free water deficit. PLAN: Continue with IV Ancef, supportive care. Patient is getting some IV fluids. Sodium is up. Patient does seem to be responding, in that the patient's white count is coming down and patient's fevers have been down. Care was discussed with the patient's at the bedside. [id number] / IJN: [id number] /
[2017-10-17 23:10] LABS: Glucose,Whole Blood 160 mg/dL (75-99)
--- NOTE | 2017-10-17 23:49 | P.PN ---
Subjective Progress Note Date: 10/17/17 Principal diagnosis: Sepsis 52-year-old male has a long-standing history of diabetes mellitus type 2 poorly controlled and history of a prior diabetic foot ulceration to the right foot which resulted in a great toe amputation. The patient is been having some difficulties with his left ankle and following with the orthopedic surgeon. Because of some discomfort at the joint he was measured and given a new bracing device for the foot and ankle. However grommet on the dorsum of the foot resulted in a bit of an ulcer and he was concerned and sought care in the office. The patient had difficulty making the appointment because of the weather and has significant distance from work to the office and reschedule. When he came to the office earlier this week the ulceration had healed and he was feeling better but was still having some swelling to the ankle area. He had no fever or chills at the time of presentation to the office, but did have the swelling to the ankle area for which she had a specialty boot that have been designed that he was not wearing that day. He however presents to the emergency center because of the sudden onset of inability to bear weight to the ankle because of the amount of pain that he started to have. Shortly thereafter he became febrile and has had a rapid decline in his status with evidence of sepsis and presentation to the intensive care unit. The case is discussed with the glaze mixer as well as the orthopedic foot and ankle specialist. Given his rapid decline in status he'll go to the operating room this afternoon. The patient is acutely ill with fever chills generalized weakness and malaise and some alteration of his mental status 10/13/2017 patient remains in intensive care unit with ongoing sepsis. Appears to have acute lung injury and also has an elevation of his creatinine likely with an acute renal injury also occurring from his sepsis. Laboratories revealed evidence of staph aureus await final susceptibility. Follow blood cultures in process reasonable cultures are positive. Patient continues to have some ongoing fevers and is admitted of nausea with the response to Zofran. He is still in a warm flushed phase of sepsis and hopefully now that he has been resuscitated will have further improvement of his status. 10/14/2017 patient does have some improvement today. He is not hypotensive not requiring vasopressors but is still on high flow oxygen for his acute lung injury. He has had fevers but down to 99.9 still feels poorly and has significant pain of the left foot and ankle area. 10/15/2017 the patient had deterioration of his respiratory status last night with his acute lung injury and developing early ARDS. He required intubation with sedation and mechanical ventilation. With improved sedation he is quite comfortable today and is synchronous with the vent with adequate oxygenation and improved blood gas. The patient is quite comfortable at this time and receiving tube feeds for his nutritional needs. Fever and leukocytosis are trending down 10/16/2017 is noted the patient remains ventilated as well as with intubation and sedation. He is quite comfortable today. Has been taking back to the operating room for further evaluation of the medial aspect of the right ankle, some infected bone was debrided but no further extensive pockets of purulence were found. Wound VAC applied. 10/17/2017 patient has had a weaning trial today but it was not successful in counseling. Remains intubated sedated and mechanically ventilated. He does to do quite comfortable. Wound vacs are in place after the debridement of yesterday to the left foot. Fever has trended down and he is hemodynamically stable Objective - Vital Signs Vital signs: Vital Signs Temp 99.2 F 10/17/17 22:00 Pulse 72 10/17/17 23:00 Resp 26 H 10/17/17 23:00 BP 121/64 10/17/17 23:00 Pulse Ox 96 10/17/17 23:00 Intake & Output 10/17/17 10/17/17 10/18/17 06:59 18:59 06:59 Intake Total 8777.494 1390.107 899.333 Output Total 1705 2700 725 Balance 208.670 -816.893 174.333 Weight 161 kg 161 kg Intake: IV 1100 100 300 Dextrose 5% in Water 1, 300 000 ml @ 75 mls/hr IV . [id number] [facility] Rx#:[id number] Dextrose 5%-0.45% NaCl 1, 1100 100 000 ml @ 100 mls/hr IV . Q10H [facility] Rx#:[id number] Intake, IV Titration 533.670 833.107 179.333 Amount Insulin Regular 100 unit 43.083 103.454 In Sodium Chloride 0.9% 100 ml @ Per Protocol IV .Q0M [facility] Rx#:[id number] Propofol 1,000 mg In 490.587 729.653 179.333 Empty Bag 1 bag @ Titrate IV .Q0M [facility] Rx#: [id number] Oral 910 60 Tube Feeding 280 40 60 Other 300 Output: Drainage 500 Left Ankle 500 Urine 1705 2200 725 Other: Voiding Method Indwelling Catheter Indwelling Catheter # Voids 1 ABP, PAP, CO, CI - Last Documented Arterial Blood Pressure 148/63 - Exam 52-year-old male presents to Hospital feeling acutely ill found to have evidence of fever and then rapidly developed sepsis HEENT: Anicteric conjunctiva are pink and moist nasal mucosa grossly intact without significant lesions, patient is now intubated and sedated Neck: The neck is supple without significant lymphadenopathy or thyromegaly. Lungs: Good bilateral air entry without significant crackles or wheezing. There is no significant bronchial sounds. There is no egophony or dullness. Heart: Tachycardic but regular with an audible S1 and S2 soft S4 There is no significant murmur click or rub, PMI was nondisplaced. Abdomen: Obese Positive bowel sounds soft and nontender without palpable masses or organomegaly. There was no guarding or rebound. Extremities: The upper extremities have excellent pulses they are symmetric, no significant petechiae or telangiectasia. No splinter hemorrhages were noted. Right lower extremity has evidence of the prior great toe amputation which is well healed. Left lower extremity reveals evidence of the surgical incision and drainage performed in the wound VAC is in place. There is still some swelling but the extensive swelling at the ankle has started to improve. There is no inguinal lymphadenopathy. Neuro: Sedated and mechanically ventilated - Labs CBC & Chem 7: 10/17/17 04:00 10/17/17 16:44 Labs: Abnormal Lab Results - Last 24 Hours (Table) 10/16/17 10/17/17 10/17/17 Range/Units 23:53 01:08 01:53 WBC (3.8-10.6) k/uL RBC (4.30-5.90) m/uL Hgb (13.0-17.5) gm/dL Hct (39.0-53.0) % MCHC (31.0-37.0) g/dL Neutrophils # (1.3-7.7) k/uL ABG pO2 (83-108) mmHg ABG HCO3 (21-25) mmol/L ABG Total CO2 (19-24) mmol/L Sodium (137-145) mmol/L Chloride (98-107) mmol/L BUN (9-20) mg/dL Glucose (74-99) mg/dL POC Glucose (mg/dL) 185 H 226 H 186 H (75-99) mg/dL 10/17/17 10/17/17 10/17/17 Range/Units 03:26 03:55 04:00 WBC 13.8 H (3.8-10.6) k/uL RBC 3.46 L (4.30-5.90) m/uL Hgb 9.6 L (13.0-17.5) gm/dL Hct 31.2 L (39.0-53.0) % MCHC 30.8 L (31.0-37.0) g/dL Neutrophils # 11.0 H (1.3-7.7) k/uL ABG pO2 (83-108) mmHg ABG HCO3 (21-25) mmol/L ABG Total CO2 (19-24) mmol/L Sodium (137-145) mmol/L Chloride (98-107) mmol/L BUN (9-20) mg/dL Glucose (74-99) mg/dL POC Glucose (mg/dL) 170 H 172 H (75-99) mg/dL 10/17/17 10/17/17 10/17/17 Range/Units 04:00 04:50 06:05 WBC (3.8-10.6) k/uL RBC (4.30-5.90) m/uL Hgb (13.0-17.5) gm/dL Hct (39.0-53.0) % MCHC (31.0-37.0) g/dL Neutrophils # (1.3-7.7) k/uL ABG pO2 (83-108) mmHg ABG HCO3 (21-25) mmol/L ABG Total CO2 (19-24) mmol/L Sodium 149 H (137-145) mmol/L Chloride 115 H (98-107) mmol/L BUN 39 H (9-20) mg/dL Glucose 167 H (74-99) mg/dL POC Glucose (mg/dL) 155 H 158 H (75-99) mg/dL 10/17/17 10/17/17 10/17/17 Range/Units 07:05 07:25 08:16 WBC (3.8-10.6) k/uL RBC (4.30-5.90) m/uL Hgb (13.0-17.5) gm/dL Hct (39.0-53.0) % MCHC (31.0-37.0) g/dL Neutrophils # (1.3-7.7) k/uL ABG pO2 70 L (83-108) mmHg ABG HCO3 26 H (21-25) mmol/L ABG Total CO2 27 H (19-24) mmol/L Sodium (137-145) mmol/L Chloride (98-107) mmol/L BUN (9-20) mg/dL Glucose (74-99) mg/dL POC Glucose (mg/dL) 149 H 156 H (75-99) mg/dL 10/17/17 10/17/17 10/17/17 Range/Units 09:11 10:05 11:05 WBC (3.8-10.6) k/uL RBC (4.30-5.90) m/uL Hgb (13.0-17.5) gm/dL Hct (39.0-53.0) % MCHC (31.0-37.0) g/dL Neutrophils # (1.3-7.7) k/uL ABG pO2 (83-108) mmHg ABG HCO3 (21-25) mmol/L ABG Total CO2 (19-24) mmol/L Sodium (137-145) mmol/L Chloride (98-107) mmol/L BUN (9-20) mg/dL Glucose (74-99) mg/dL POC Glucose (mg/dL) 162 H 159 H 164 H (75-99) mg/dL 10/17/17 10/17/17 10/17/17 Range/Units 12:35 13:08 14:06 WBC (3.8-10.6) k/uL RBC (4.30-5.90) m/uL Hgb (13.0-17.5) gm/dL Hct (39.0-53.0) % MCHC (31.0-37.0) g/dL Neutrophils # (1.3-7.7) k/uL ABG pO2 (83-108) mmHg ABG HCO3 (21-25) mmol/L ABG Total CO2 (19-24) mmol/L Sodium (137-145) mmol/L Chloride (98-107) mmol/L BUN (9-20) mg/dL Glucose (74-99) mg/dL POC Glucose (mg/dL) 172 H 176 H 168 H (75-99) mg/dL 10/17/17 10/17/17 10/17/17 Range/Units 15:00 16:09 16:44 WBC (3.8-10.6) k/uL RBC (4.30-5.90) m/uL Hgb (13.0-17.5) gm/dL Hct (39.0-53.0) % MCHC (31.0-37.0) g/dL Neutrophils # (1.3-7.7) k/uL ABG pO2 (83-108) mmHg ABG HCO3 (21-25) mmol/L ABG Total CO2 (19-24) mmol/L Sodium 146 H (137-145) mmol/L Chloride (98-107) mmol/L BUN (9-20) mg/dL Glucose (74-99) mg/dL POC Glucose (mg/dL) 174 H 191 H (75-99) mg/dL 10/17/17 10/17/17 10/17/17 Range/Units 16:57 18:03 18:55 WBC (3.8-10.6) k/uL RBC (4.30-5.90) m/uL Hgb (13.0-17.5) gm/dL Hct (39.0-53.0) % MCHC (31.0-37.0) g/dL Neutrophils # (1.3-7.7) k/uL ABG pO2 (83-108) mmHg ABG HCO3 (21-25) mmol/L ABG Total CO2 (19-24) mmol/L Sodium (137-145) mmol/L Chloride (98-107) mmol/L BUN (9-20) mg/dL Glucose (74-99) mg/dL POC Glucose (mg/dL) 192 H 206 H 187 H (75-99) mg/dL 10/17/17 10/17/17 10/17/17 Range/Units 20:02 21:10 21:56 WBC (3.8-10.6) k/uL RBC (4.30-5.90) m/uL Hgb (13.0-17.5) gm/dL Hct (39.0-53.0) % MCHC (31.0-37.0) g/dL Neutrophils # (1.3-7.7) k/uL ABG pO2 (83-108) mmHg ABG HCO3 (21-25) mmol/L ABG Total CO2 (19-24) mmol/L Sodium (137-145) mmol/L Chloride (98-107) mmol/L BUN (9-20) mg/dL Glucose (74-99) mg/dL POC Glucose (mg/dL) 178 H 186 H 171 H (75-99) mg/dL 10/17/17 Range/Units 23:08 WBC (3.8-10.6) k/uL RBC (4.30-5.90) m/uL Hgb (13.0-17.5) gm/dL Hct (39.0-53.0) % MCHC (31.0-37.0) g/dL Neutrophils # (1.3-7.7) k/uL ABG pO2 (83-108) mmHg ABG HCO3 (21-25) mmol/L ABG Total CO2 (19-24) mmol/L Sodium (137-145) mmol/L Chloride (98-107) mmol/L BUN (9-20) mg/dL Glucose (74-99) mg/dL POC Glucose (mg/dL) 160 H (75-99) mg/dL Microbiology - Last 24 Hours (Table) 10/15/17 05:15 Gram Stain - Final Sputum Sputum Culture - Final Jayne albicans 10/13/17 08:45 Blood Culture Gram Stain - Final Blood Blood Culture - Final Staphylococcus aureus 10/12/17 19:48 Anaerobic Culture - Final Ankle - Left 10/12/17 19:48 Anaerobic Culture - Final Ankle - Left Laboratory Results WBC 13.8 k/uL (3.8-10.6) H 10/17/17 04:00 RBC 3.46 m/uL (4.30-5.90) L 10/17/17 04:00 Hgb 9.6 gm/dL (13.0-17.5) L 10/17/17 04:00 Hct 31.2 % (39.0-53.0) L 10/17/17 04:00 MCV 90.2 fL (80.0-100.0) 10/17/17 04:00 MCH 27.8 pg (25.0-35.0) 10/17/17 04:00 MCHC 30.8 g/dL (31.0-37.0) L 10/17/17 04:00 RDW 14.2 % (11.5-15.5) 10/17/17 04:00 Plt Count 304 k/uL (150-450) 10/17/17 04:00 Neutrophils % 80 % 10/17/17 04:00 Lymphocytes % 10 % 10/17/17 04:00 Monocytes % 6 % 10/17/17 04:00 Eosinophils % 2 % 10/17/17 04:00 Basophils % 1 % 10/17/17 04:00 Neutrophils # 11.0 k/uL (1.3-7.7) H 10/17/17 04:00 Lymphocytes # 1.4 k/uL (1.0-4.8) 10/17/17 04:00 Monocytes # 0.9 k/uL (0-1.0) 10/17/17 04:00 Eosinophils # 0.2 k/uL (0-0.7) 10/17/17 04:00 Basophils # 0.1 k/uL (0-0.2) 10/17/17 04:00 Hypochromasia Moderate 10/15/17 05:00 ESR 25 mm/hr (0-15) H 10/12/17 07:29 Sample Site a-line 10/17/17 07:25 ABG pH 7.41 (7.35-7.45) 10/17/17 07:25 ABG pCO2 40 mmHg (35-45) 10/17/17 07:25 ABG pO2 70 mmHg (83-108) L 10/17/17 07:25 ABG HCO3 26 mmol/L (21-25) H 10/17/17 07:25 ABG Total CO2 27 mmol/L (19-24) H 10/17/17 07:25 ABG O2 Saturation 94.6 % (94-97) 10/17/17 07:25 ABG Base Excess 0.8 mmol/L 10/17/17 07:25 Cr Test Yes 10/17/17 07:25 ABG Lactic Acid 1.0 mmol/L (0.5-1.6) 10/12/17 18:06 FiO2 40 % 10/17/17 07:25 Sodium 146 mmol/L (137-145) H 10/17/17 16:44 Potassium 3.5 mmol/L (3.5-5.1) 10/17/17 04:00 Chloride 115 mmol/L (98-107) H 10/17/17 04:00 Carbon Dioxide 23 mmol/L (22-30) 10/17/17 04:00 Anion Gap 11 mmol/L 10/17/17 04:00 BUN 39 mg/dL (9-20) H 10/17/17 04:00 Creatinine 0.90 mg/dL (0.66-1.25) 10/17/17 04:00 Est GFR (CKD-EPI)AfAm >90 (>60 ml/min/1.73 sqM) 10/17/17 04:00 Est GFR (CKD-EPI)NonAf >90 (>60 ml/min/1.73 sqM) 10/17/17 04:00 Glucose 167 mg/dL (74-99) H 10/17/17 04:00 POC Glucose (mg/dL) 160 mg/dL (75-99) H 10/17/17 23:08 POC Glu Meat Grinder LAURIE Perez Quevedo 10/17/17 23:[address] Glu mg/dL 214 10/12/17 07:29 Hemoglobin A1c 9.1 % (4.0-6.0) H 10/12/17 07:29 Plasma Lactic Acid Ron 1.5 mmol/L (0.7-2.0) 10/11/17 21:10 Uric Acid 5.6 mg/dL (3.5-8.5) 10/11/17 21:10 Calcium 8.7 mg/dL (8.4-10.2) 10/17/17 04:00 Phosphorus 3.1 mg/dL (2.5-4.5) 10/17/17 04:00 Magnesium 2.2 mg/dL (1.6-2.3) 10/17/17 04:00 AST 96 U/L (17-59) H 10/13/17 19:55 ALT 58 U/L (21-72) 10/13/17 19:55 C-Reactive Protein 45.1 mg/L (<10.0) H 10/11/17 21:10 Urine Color Yellow 10/15/17 11:30 Urine Appearance Clear (Clear) 10/15/17 11:30 Urine pH 6.0 (5.0-8.0) 10/15/17 11:30 Ur Specific Likely 1.018 (1.001-1.035) 10/15/17 11:30 Urine Protein 1+ (Negative) H 10/15/17 11:30 Urine Glucose (UA) 3+ (Negative) H 10/15/17 11:30 Urine Ketones Negative (Negative) 10/15/17 11:30 Urine Blood Small (Negative) H 10/15/17 11:30 Urine Nitrite Negative (Negative) 10/15/17 11:30 Urine Bilirubin Negative (Negative) 10/15/17 11:30 Urine Urobilinogen <2.0 mg/dL (<2.0) 10/15/17 11:30 Ur Leukocyte Esterase Negative (Negative) 10/15/17 11:30 Urine RBC <1 /hpf (0-5) 10/15/17 11:30 Urine WBC 3 /hpf (0-5) 10/15/17 11:30 Urine Mucus Rare /hpf (None) H 10/15/17 11:30 Microbiology 10/15/17 05:15 Sputum Gram Stain - Final 10/15/17 05:15 Sputum Sputum Culture - Final Jayne albicans 10/13/17 08:45 Blood Blood Culture Gram Stain - Final 10/13/17 08:45 Blood Blood Culture - Final Staphylococcus aureus 10/12/17 19:48 Ankle - Left Anaerobic Culture - Final 10/12/17 19:48 Ankle - Left Anaerobic Culture - Final 10/13/17 07:25 Blood Blood Culture Gram Stain - Final 10/13/17 07:25 Blood Blood Culture - Final Staphylococcus aureus 10/12/17 19:48 Ankle - Left Gram Stain - Final 10/12/17 19:48 Ankle - Left Wound Culture - Final Staph aureus 10/12/17 19:48 Ankle - Left Gram Stain - Final 10/12/17 19:48 Ankle - Left Wound Culture - Final Staphylococcus aureus 10/12/17 09:27 Synovial Fluid Gram Stain - Final 10/12/17 09:27 Synovial Fluid Body Fluid Culture - Final Staphylococcus aureus 10/13/17 07:25 Blood Blood Culture - Final 10/13/17 08:45 Blood Blood Culture - Final 10/11/17 21:15 Blood Blood Culture Gram Stain - Final 10/11/17 21:15 Blood Blood Culture - Final Staphylococcus aureus 10/11/17 21:15 Blood Blood Culture - Final - Imaging and Cardiology Chest x-ray: report reviewed (Consistent with ongoing volume overload) Assessment and Plan (1) Septic arthritis of left ankle Narrative/Plan: 52-year-old male presents the emergency center with inability to bear weight to his left ankle. The patient has had some new orthotic boot manufactured in a developed a small ulcer on the dorsum of the left foot. This apparently was from a grommet from an orthotic. This was completely healed and was evaluated but was still having ongoing difficulties with ankle area. Is actively following up with orthopedic foot and ankle. The patient does have a boot that was designed that he was not wearing when he came to the office and understands it is important that he wears this when he is at work to protect his ankle from the Charcot changes. Patient however now has high-grade fever chills leukocytosis and laboratories: Positive blood culture with gram-positive cocci. The patient did have aspiration per orthopedic ankle grossly purulent material was found. Originally the plan was to go to the operating him in the morning but as the patient felt worsening sepsis he is no scheduled operating room this afternoon for the incision and drainage of this abscess. Deep cultures and pathology will also be sent. Antibiotic therapy is altered from vancomycin to daptomycin. In hopes to have a more rapid bacteriocidal activity given his rapidly declining status. Enhance glucose control be important part of his healing. Leukocytosis record related to his current sepsis. There is evidence of possible culture and he will require follow blood cultures in the morning. He was monitored for any persistence of his bacteremia. There will be a coordinated effort between orthopedic ankle and infectious disease as to the care at discharge. 10/13/2017 reveals the patient still needs intensive care unit after surgery with ongoing sepsis. Continues to have fever and leukocytosis and difficulties with acute lung injury and now elevated creatinine to 2.0. Patient continues to be resuscitated and has had some improvement but minimal at this point in time. He will continue with maneuvers to improve his fever maintain his hydration and antibiotic therapy continues with daptomycin for both staph aureus and MRSA, blood culture and aspirate from the ankle are still showing staph aureus final susceptibility is pending. Patient aware that if he improves he will be receiving a jg completed a long course of IV antibiotic therapy for this extensive infection. Leukocytosis directly related to the sepsis 10/14/2017 the patient remains in intensive care unit, high flow oxygen is being utilized for his acute lung injury. His creatinine has increased further is now 2.0. Urine output is adequate. He is symptomatically stable is having difficulties with shortness of breath. Pain at the foot and ankle is predictable but the significant swelling history improving after surgical incision and drainage. Ulceration is treated with a medical history dressing. If there is no further marked improvement by tomorrow the patient will likely go back to the operating him for further incision and drainage to the site. The case is discussed with the orthopedic surgeon. 10/15/2017 the patient is noted had a decline of his status and his required intubation with sedation mechanical ventilation and is now much more comfortable. His pulmonary status is improved with the intervention. He has not requiring vasopressor therapy. We'll do blood cultures verified MSSA and antibiotic therapy was transitioned to high dose cefazolin. The patient is evaluated in conjunction with the orthopedic surgeon and the plan is for the patient to have further debridement of the ankle tomorrow to ensure there is complete drainage of any abscess at that joint site given the progression of his underlying illness. Fortunately he has not hemodynamic stable and is having improvement of his leukocytosis. We'll expect as a sepsis improves his pulmonary injury will improve also. His creatinine peaked at 2.10 now down to 2.0 and nephrology has evaluated. Follow blood cultures to ensure clearance of his bacteremia. Echocardiogram without evidence of vegetations. Is not the case is discussed with the orthopedic surgeon as well as the patient' s . 10/16/2017 the patient's been taking to the operating room today for further debridement of the left ankle. Some necrotic bone was debrided but no further large pockets of abscess were seen. Wound vacs are applied. We'll continue his high-dose antibiotic therapy for his MSSA infection from the septic arthritis left ankle. There are several evidences of improvement today, still requires no vasopressor therapy. We'll expect as he starting to improve we need to start in the next day or so. Once he is evidence of clearance of his bacteremia will need IV access placed for his long-term IV antibiotic therapy. 10/17/2017 patient is hemodynamically stable without acute no difficulties today. He over did not do well with a weaning trial. Will be tried on a daily basis as per the compressor house operator. He is hemodynamic stable and his adequate urinary output. We'll continue high-dose cefazolin and supportive care. It is likely that the wound vacs removed tomorrow with further evaluation of the ankle wounds at that time. Supportive care continues he's had a slight improvement of his creatinine and his sodium is improving. Current Visit: Yes Status: Acute Code(s): M00.9 - PYOGENIC ARTHRITIS, UNSPECIFIED SNOMED Code(s): 38502914 (2) Sepsis Current Visit: Yes Status: Acute Priority: Medium Code(s): A41.9 - SEPSIS , UNSPECIFIED ORGANISM SNOMED Code(s): 72947599 (3) Poorly controlled type 2 diabetes mellitus with complication Current Visit: Yes Status: Acute Code(s): E11.8 - TYPE 2 DIABETES MELLITUS WITH UNSPECIFIED COMPLICATIONS; E11.65 - TYPE 2 DIABETES MELLITUS WITH HYPERGLYCEMIA SNOMED Code(s): 08142912
[2017-10-18 00:02] LABS: Glucose,Whole Blood 159 mg/dL (75-99)
[2017-10-18] MEDS: PROPOFOL 1,000 MG in EMPTY BAG 1 BAG IV SCH ×10 (00:25→23:17)
[2017-10-18] MEDS: ceFAZolin IN SWFI 2 GM/20 ML SYRINGE IVP SCH ×3 (00:27→16:24)
[2017-10-18] MEDS: HEPARIN SODIUM,PORCINE 5,000 UNIT/ML 1 ML VIAL SQ SCH ×3 (00:27→16:25)
[2017-10-18 01:13] LABS: Glucose,Whole Blood 166 mg/dL (75-99)
[2017-10-18] MEDS: MORPHINE SULFATE 4 MG/0.8 ML SYRINGE (INJ) IVP PRN ×4 (01:54→17:37)
[2017-10-18 01:55] LABS: Glucose,Whole Blood 153 mg/dL (75-99)
[2017-10-18 03:13] LABS: Glucose,Whole Blood 154 mg/dL (75-99)
[2017-10-18 04:04] LABS: Glucose,Whole Blood 165 mg/dL (75-99)
[2017-10-18 05:08] LABS: Glucose,Whole Blood 143 mg/dL (75-99)
[2017-10-18 05:08] LABS: Glucose,Whole Blood 129 mg/dL (75-99)
[2017-10-18] MEDS: INSULIN REGULAR 100 UNIT in SODIUM CHLORIDE 0.9% 100 ML IV SCH ×2 (05:11→17:40)
[2017-10-18 05:24] LABS: Basophils # (A) 0.1 k/uL (0-0.2); Basophils % (A) 1 %; Eosinophils # (A) 0.7 k/uL (0-0.7); Eosinophils % (A) 3 %; HCT 24.1 % (39.0-53.0); Hypochromasia Slight; Lymphocytes % (A) 10 %; MCH 27.6 pg (25.0-35.0); MCHC 30.8 g/dL (31.0-37.0); MCV 89.7 fL (80.0-100.0); Mean Platelet Volume 8.5; Monocytes # (A) 0.8 k/uL (0-1.0); Monocytes % (A) 4 %; Neutrophils # (A) 16.1 k/uL (1.3-7.7); Neutrophils % (A) 81 %; Platelet Count 406 k/uL (150-450); RBC 2.69 m/uL (4.30-5.90); RDW 14.5 % (11.5-15.5)
[2017-10-18 05:27] LABS: HGB 7.4 gm/dL (13.0-17.5)
[2017-10-18 05:30] LABS: Anion Gap 10 mmol/L; Blood Urea Nitrogen 26 mg/dL (9-20); Calcium 8.5 mg/dL (8.4-10.2); Carbon Dioxide 25 mmol/L (22-30); Chloride 109 mmol/L (98-107); Glucose 148 mg/dL (74-99); Magnesium 1.8 mg/dL (1.6-2.3); Phosphorus 4.1 mg/dL (2.5-4.5); Potassium 3.5 mmol/L (3.5-5.1); Sodium 144 mmol/L (137-145)
[2017-10-18 05:53] LABS: HCT 31.2 % (39.0-53.0); MCH 28.7 pg (25.0-35.0); MCV 89.7 fL (80.0-100.0); Mean Platelet Volume 8.2; Platelet Count 356 k/uL (150-450); RBC 3.48 m/uL (4.30-5.90); RDW 14.4 % (11.5-15.5); WBC 17.3 k/uL (3.8-10.6)
[2017-10-18 05:57] LABS: Hypochromasia Slight
[2017-10-18 06:01] LABS: Anion Gap 9 mmol/L; Blood Urea Nitrogen 26 mg/dL (9-20); Calcium 8.5 mg/dL (8.4-10.2); Carbon Dioxide 25 mmol/L (22-30); Chloride 109 mmol/L (98-107); Glucose 164 mg/dL (74-99); Potassium 3.5 mmol/L (3.5-5.1); Sodium 143 mmol/L (137-145)
[2017-10-18 06:08] LABS: ABG Base Excess 1.6 mmol/L; ABG HCO3 26 mmol/L (21-25); ABG Oxygen Saturation 99.3 % (94-97); ABG PCO2 37 mmHg (35-45); ABG PH 7.45 (7.35-7.45); ABG PO2 122 mmHg (83-108); ABG TCO2 27 mmol/L (19-24)
[2017-10-18 06:11] LABS: Band Neutrophils % 4 %; Eosinophils # (M) 0.52 k/uL (0-0.7); Lymphocytes # (M) 2.25 k/uL (1.0-4.8); Metamyelocytes # (M) 1.21 k/uL (0); Metamyelocytes % 7 %; Monocytes # (M) 0.35 k/uL (0-1.0); Myelocytes # (M) 0.35 k/uL (0); Myelocytes % 2 %; Neutrophils % (M) 69 %; Nucleated Red Blood Cells 0 /100 WBC (0-0); Total Cells Counted 100
[2017-10-18 06:14] LABS: Glucose,Whole Blood 148 mg/dL (75-99)
[2017-10-18] MEDS ORDERED: Magnesium Replacement Protocol 1 EACH MISC MISCELLANE PRN (06:15)
[2017-10-18] MEDS: DEXTROSE 5% IN WATER 1,000 ML IV SCH ×2 (06:56→20:38)
[2017-10-18] MEDS: MAGNESIUM SULFATE-D5W PMX 1 GM in DEXTROSE/WATER 1 100ML.BAG IVPB SCH ×2 (06:56→08:32)
[2017-10-18] MEDS: POTASSIUM BICARBONATE/CIT AC 20 MEQ TABLET.EFF NG-TUBE SCH ×2 (06:57→08:28)
[2017-10-18 07:13] LABS: Glucose,Whole Blood 162 mg/dL (75-99)
--- NOTE | 2017-10-18 07:55 | XR ---
EXAMINATION TYPE: XR chest 1V portable DATE OF EXAM: 10/18/2017 CLINICAL HISTORY: Difficulty breathing progress study. TECHNIQUE: Single AP portable upright view of the chest is obtained. COMPARISON: Chest x-ray from one day earlier and older studies. FINDINGS: An endotracheal tube, orogastric tube, and left internal jugular central venous catheter a re all stable in appearance. There is persistent small left greater than right pleural effusions. There is bibasilar opacity consi stent with atelectasis and/or infiltrate. Cardiac silhouette size is stable and mildly enlarged. Uppe r lungs remain clear without pneumothorax. Osseous structures are intact. IMPRESSION: Overall stable findings, mild cardiomegaly with small left greater than right pleural e ffusions and bibasilar atelectasis and/or infiltrate all redemonstrated.
[2017-10-18 08:13] LABS: Glucose,Whole Blood 181 mg/dL (75-99)
--- NOTE | 2017-10-18 08:13 | P.PN ---
Subjective Patient is seen in follow-up for acute kidney injury. Creatinine peaked at 2.1 this admission and is down to 0.79 today. Sodium level is down to 143. He remains intubated and sedated. He is currently being treated for septic arthritis and has undergone debridement of the left ankle as well as wound VAC placement. Cultures are positive for staph species. He is nonoliguric. Hemodynamically stable. He is maintained on tube feeding. Vital signs are stable. General: The patient appeared well nourished and normally developed. Intubated. HEENT: Head exam is unremarkable. Neck is without jugular venous distension. LUNGS: Lungs are clear to auscultation and percussion. Breath sounds decreased. HEART: Rate and Rhythm are regular. First and second heart sounds normal. No murmurs, rubs or gallops. ABDOMEN: Abdominal exam reveals normal bowel sounds. Non-tender and non- distended. No evidence of peritonitis. EXTREMITITES: 1+ edema. Left foot wrapped. Objective - Vital Signs Vital signs: Vital Signs Temp 99.8 F H 10/18/17 04:00 Pulse 74 10/18/17 07:00 Resp 28 H 10/18/17 07:00 BP 142/67 10/18/17 07:00 Pulse Ox 95 10/18/17 07:00 Intake & Output 10/17/17 10/18/17 10/18/17 18:59 06:59 18:59 Intake Total 3077.478 5874.202 395 Output Total 2700 1675 250 Balance -172.382 7206.202 145 Weight 161 kg 162 kg Intake: IV 100 825 75 Dextrose 5% in Water 1, 825 75 000 ml @ 75 mls/hr IV . [id number] [facility] Rx#:[id number] Dextrose 5%-0.45% NaCl 1, 100 000 ml @ 100 mls/hr IV . Q10H [facility] Rx#:[id number] Intake, IV Titration 833.107 661.202 Amount Insulin Regular 100 unit 103.454 87.802 In Sodium Chloride 0.9% 100 ml @ Per Protocol IV .Q0M [facility] Rx#:[id number] Propofol 1,000 mg In 729.653 573.400 Empty Bag 1 bag @ Titrate IV .Q0M [facility] Rx#: [id number] Oral 910 60 Tube Feeding 40 240 20 Other 900 300 Output: Drainage 500 Left Ankle 500 Urine 2200 1675 250 Other: Voiding Method Indwelling Catheter Indwelling Catheter # Voids 1 ABP, PAP, CO, CI - Last Documented Arterial Blood Pressure 158/64 - Labs CBC & Chem 7: 10/18/17 05:30 10/18/17 05:30 Labs: Abnormal Lab Results - Last 24 Hours (Table) 10/17/17 10/17/17 10/17/17 Range/Units 08:16 09:11 10:05 WBC (3.8-10.6) k/uL RBC (4.30-5.90) m/uL Hgb (13.0-17.5) gm/dL Hct (39.0-53.0) % MCHC (31.0-37.0) g/dL Neutrophils # (1.3-7.7) k/uL Neutrophils # (Manual) (1.3-7.7) k/uL Metamyelocytes # (Man) (0) k/uL Myelocytes # (Manual) (0) k/uL ABG pO2 (83-108) mmHg ABG HCO3 (21-25) mmol/L ABG Total CO2 (19-24) mmol/L ABG O2 Saturation (94-97) % Sodium (137-145) mmol/L Chloride (98-107) mmol/L BUN (9-20) mg/dL Glucose (74-99) mg/dL POC Glucose (mg/dL) 156 H 162 H 159 H (75-99) mg/dL 10/17/17 10/17/17 10/17/17 Range/Units 11:05 12:35 13:08 WBC (3.8-10.6) k/uL RBC (4.30-5.90) m/uL Hgb (13.0-17.5) gm/dL Hct (39.0-53.0) % MCHC (31.0-37.0) g/dL Neutrophils # (1.3-7.7) k/uL Neutrophils # (Manual) (1.3-7.7) k/uL Metamyelocytes # (Man) (0) k/uL Myelocytes # (Manual) (0) k/uL ABG pO2 (83-108) mmHg ABG HCO3 (21-25) mmol/L ABG Total CO2 (19-24) mmol/L ABG O2 Saturation (94-97) % Sodium (137-145) mmol/L Chloride (98-107) mmol/L BUN (9-20) mg/dL Glucose (74-99) mg/dL POC Glucose (mg/dL) 164 H 172 H 176 H (75-99) mg/dL 10/17/17 10/17/17 10/17/17 Range/Units 14:06 15:00 16:09 WBC (3.8-10.6) k/uL RBC (4.30-5.90) m/uL Hgb (13.0-17.5) gm/dL Hct (39.0-53.0) % MCHC (31.0-37.0) g/dL Neutrophils # (1.3-7.7) k/uL Neutrophils # (Manual) (1.3-7.7) k/uL Metamyelocytes # (Man) (0) k/uL Myelocytes # (Manual) (0) k/uL ABG pO2 (83-108) mmHg ABG HCO3 (21-25) mmol/L ABG Total CO2 (19-24) mmol/L ABG O2 Saturation (94-97) % Sodium (137-145) mmol/L Chloride (98-107) mmol/L BUN (9-20) mg/dL Glucose (74-99) mg/dL POC Glucose (mg/dL) 168 H 174 H 191 H (75-99) mg/dL 10/17/17 10/17/17 10/17/17 Range/Units 16:44 16:57 18:03 WBC (3.8-10.6) k/uL RBC (4.30-5.90) m/uL Hgb (13.0-17.5) gm/dL Hct (39.0-53.0) % MCHC (31.0-37.0) g/dL Neutrophils # (1.3-7.7) k/uL Neutrophils # (Manual) (1.3-7.7) k/uL Metamyelocytes # (Man) (0) k/uL Myelocytes # (Manual) (0) k/uL ABG pO2 (83-108) mmHg ABG HCO3 (21-25) mmol/L ABG Total CO2 (19-24) mmol/L ABG O2 Saturation (94-97) % Sodium 146 H (137-145) mmol/L Chloride (98-107) mmol/L BUN (9-20) mg/dL Glucose (74-99) mg/dL POC Glucose (mg/dL) 192 H 206 H (75-99) mg/dL 10/17/17 10/17/17 10/17/17 Range/Units 18:55 20:02 21:10 WBC (3.8-10.6) k/uL RBC (4.30-5.90) m/uL Hgb (13.0-17.5) gm/dL Hct (39.0-53.0) % MCHC (31.0-37.0) g/dL Neutrophils # (1.3-7.7) k/uL Neutrophils # (Manual) (1.3-7.7) k/uL Metamyelocytes # (Man) (0) k/uL Myelocytes # (Manual) (0) k/uL ABG pO2 (83-108) mmHg ABG HCO3 (21-25) mmol/L ABG Total CO2 (19-24) mmol/L ABG O2 Saturation (94-97) % Sodium (137-145) mmol/L Chloride (98-107) mmol/L BUN (9-20) mg/dL Glucose (74-99) mg/dL POC Glucose (mg/dL) 187 H 178 H 186 H (75-99) mg/dL 10/17/17 10/17/17 10/18/17 Range/Units 21:56 23:08 00:00 WBC (3.8-10.6) k/uL RBC (4.30-5.90) m/uL Hgb (13.0-17.5) gm/dL Hct (39.0-53.0) % MCHC (31.0-37.0) g/dL Neutrophils # (1.3-7.7) k/uL Neutrophils # (Manual) (1.3-7.7) k/uL Metamyelocytes # (Man) (0) k/uL Myelocytes # (Manual) (0) k/uL ABG pO2 (83-108) mmHg ABG HCO3 (21-25) mmol/L ABG Total CO2 (19-24) mmol/L ABG O2 Saturation (94-97) % Sodium (137-145) mmol/L Chloride (98-107) mmol/L BUN (9-20) mg/dL Glucose (74-99) mg/dL POC Glucose (mg/dL) 171 H 160 H 159 H (75-99) mg/dL 10/18/17 10/18/17 10/18/17 Range/Units 01:10 01:46 03:11 WBC (3.8-10.6) k/uL RBC (4.30-5.90) m/uL Hgb (13.0-17.5) gm/dL Hct (39.0-53.0) % MCHC (31.0-37.0) g/dL Neutrophils # (1.3-7.7) k/uL Neutrophils # (Manual) (1.3-7.7) k/uL Metamyelocytes # (Man) (0) k/uL Myelocytes # (Manual) (0) k/uL ABG pO2 (83-108) mmHg ABG HCO3 (21-25) mmol/L ABG Total CO2 (19-24) mmol/L ABG O2 Saturation (94-97) % Sodium (137-145) mmol/L Chloride (98-107) mmol/L BUN (9-20) mg/dL Glucose (74-99) mg/dL POC Glucose (mg/dL) 166 H 153 H 154 H (75-99) mg/dL 10/18/17 10/18/17 10/18/17 Range/Units 04:02 05:00 05:00 WBC 20.0 H (3.8-10.6) k/uL RBC 2.69 L (4.30-5.90) m/uL Hgb 7.4 L D (13.0-17.5) gm/dL Hct 24.1 L (39.0-53.0) % MCHC 30.8 L (31.0-37.0) g/dL Neutrophils # 16.1 H (1.3-7.7) k/uL Neutrophils # (Manual) (1.3-7.7) k/uL Metamyelocytes # (Man) (0) k/uL Myelocytes # (Manual) (0) k/uL ABG pO2 (83-108) mmHg ABG HCO3 (21-25) mmol/L ABG Total CO2 (19-24) mmol/L ABG O2 Saturation (94-97) % Sodium (137-145) mmol/L Chloride 109 H (98-107) mmol/L BUN 26 H (9-20) mg/dL Glucose 148 H (74-99) mg/dL POC Glucose (mg/dL) 165 H (75-99) mg/dL 10/18/17 10/18/17 10/18/17 Range/Units 05:02 05:05 05:30 WBC 17.3 H (3.8-10.6) k/uL RBC 3.48 L (4.30-5.90) m/uL Hgb 10.0 L D (13.0-17.5) gm/dL Hct 31.2 L (39.0-53.0) % MCHC (31.0-37.0) g/dL Neutrophils # (1.3-7.7) k/uL Neutrophils # (Manual) 12.60 H (1.3-7.7) k/uL Metamyelocytes # (Man) 1.21 H (0) k/uL Myelocytes # (Manual) 0.35 H (0) k/uL ABG pO2 (83-108) mmHg ABG HCO3 (21-25) mmol/L ABG Total CO2 (19-24) mmol/L ABG O2 Saturation (94-97) % Sodium (137-145) mmol/L Chloride (98-107) mmol/L BUN (9-20) mg/dL Glucose (74-99) mg/dL POC Glucose (mg/dL) 129 H 143 H (75-99) mg/dL 10/18/17 10/18/17 10/18/17 Range/Units 05:30 06:05 06:13 WBC (3.8-10.6) k/uL RBC (4.30-5.90) m/uL Hgb (13.0-17.5) gm/dL Hct (39.0-53.0) % MCHC (31.0-37.0) g/dL Neutrophils # (1.3-7.7) k/uL Neutrophils # (Manual) (1.3-7.7) k/uL Metamyelocytes # (Man) (0) k/uL Myelocytes # (Manual) (0) k/uL ABG pO2 122 H (83-108) mmHg ABG HCO3 26 H (21-25) mmol/L ABG Total CO2 27 H (19-24) mmol/L ABG O2 Saturation 99.3 H (94-97) % Sodium (137-145) mmol/L Chloride 109 H (98-107) mmol/L BUN 26 H (9-20) mg/dL Glucose 164 H (74-99) mg/dL POC Glucose (mg/dL) 148 H (75-99) mg/dL 10/18/17 Range/Units 07:10 WBC (3.8-10.6) k/uL RBC (4.30-5.90) m/uL Hgb (13.0-17.5) gm/dL Hct (39.0-53.0) % MCHC (31.0-37.0) g/dL Neutrophils # (1.3-7.7) k/uL Neutrophils # (Manual) (1.3-7.7) k/uL Metamyelocytes # (Man) (0) k/uL Myelocytes # (Manual) (0) k/uL ABG pO2 (83-108) mmHg ABG HCO3 (21-25) mmol/L ABG Total CO2 (19-24) mmol/L ABG O2 Saturation (94-97) % Sodium (137-145) mmol/L Chloride (98-107) mmol/L BUN (9-20) mg/dL Glucose (74-99) mg/dL POC Glucose (mg/dL) 162 H (75-99) mg/dL Microbiology - Last 24 Hours (Table) 10/17/17 05:50 Blood Culture - Preliminary Blood No Growth after 24 hours 10/17/17 04:07 Blood Culture - Preliminary Blood No Growth after 24 hours 10/15/17 05:15 Gram Stain - Final Sputum Sputum Culture - Final Jayne albicans Assessment and Plan Plan: Assessment: #1. Nonoliguric acute kidney injury secondary to ATN secondary to severe sepsis and hemodynamic instability. Creatinine peaked at 2.1 this admission and is down to 0.79 today. #2. Severe sepsis secondary to septic arthritis status post a Brightman and wound VAC placement. Fluid culture as well as blood culture positive for staph aureus. #3. Insulin-dependent diabetes mellitus. #4. Acute hypercapnic respiratory failure. Currently on ventilator. #5. Respiratory acidosis and metabolic acidosis. Concern for ARDS. #6. Hypernatremia secondary to free water losses from urine and lack of oral water intake. Improved. #7. Proteinuria. This is likely due to underlying diabetic kidney disease. #8. Hypokalemia from poor oral intake and urinary losses. Magnesium replete. Plan: Maintain D5W to be run at 75 mL an hour. Continue with tube feeds. Free water flushes 300 mL every 4 hours. Antibiotics per infectious disease recommendations. Avoid nephrotoxic agents and hypotensive episodes. Continue to monitor renal function and urine output. Wean FiO2. Recheck sodium at 5 PM today. Potassium has been replaced.
[2017-10-18] MEDS: GABAPENTIN 300 MG CAP PO SCH (08:31)
[2017-10-18] MEDS: LEVOTHYROXINE 75 MCG TAB PO SCH (08:32)
[2017-10-18] MEDS: METOPROLOL TARTRATE 25 MG TAB PO SCH ×2 (08:33→21:36)
[2017-10-18] MEDS: CHLORHEXIDINE GLUCONATE 15 ML CUP MUCOUS MEM SCH ×2 (08:34→20:37)
[2017-10-18] MEDS: NON-FORMULARY DRUG (Empagliflozin [Jardiance] 25 MG) PO SCH (08:34)
[2017-10-18] MEDS: PANTOPRAZOLE 40 MG/10 ML VIAL IV SCH (08:34)
[2017-10-18] MEDS: PREGABALIN 100 MG CAP PO SCH ×3 (08:36→21:37)
[2017-10-18 09:01] LABS: Glucose,Whole Blood 168 mg/dL (75-99)
[2017-10-18] MEDS ORDERED: DEXMEDETOMIDINE/0.9% NACL(PMX) 400 MCG in EMPTY BAG 1 BAG IV SCH (10:15)
[2017-10-18] MEDS: hydrALAZINE HCL 20 MG/ML 1 ML VIAL IVP PRN ×3 (10:54→18:31)
[2017-10-18 11:04] LABS: Glucose,Whole Blood 162 mg/dL (75-99)
[2017-10-18 11:59] LABS: Glucose,Whole Blood 165 mg/dL (75-99)
--- NOTE | 2017-10-18 13:04 | P.PN ---
Subjective Progress Note Date: 10/18/17 Principal diagnosis: Acute sepsis secondary to septic arthritis of the left ankle and MSSA bacteremia. This is a 52-year-old male patient, diabetic, known history of severe peripheral neuropathy, charcoal joints and previous amputation of the right foot , partial, presenting again today to the hospital because of pain and swelling following an ankle sprain on the left. The patient had been having progressive increase in swelling and pain in the left lower extremity mainly in the ankle area and there is increase in warmth. He came into the emergency department. He was seen by orthopedic surgery. The fluid joints was aspirated and the results are still pending for now. Meanwhile he became progressively more septic and he got transferred to the intensive care unit because of increased tachycardia, tachypnea, right gutters and hypotension and diminished level of consciousness. Apparently the patient was hypoxic with a pulse ox of 80% on the floor. Upon arrival to the ICU he was placed on high flow oxygen initially at 5 L/m nasal cannula which brought his saturation above 90%. He had a temperature 104.2. His heart rate was 130s sinus. He was quite lethargic and dry. He was started on aggressive fluid resuscitation 2 L of bolus of being given right now. Blood cultures positive and I discussed the case with infectious disease and the patient will be switched to daptomycin. The patient will also go to the operating room for immediate I&D. The patient has elevated blood sugar and he will be started on insulin drip for blood sugar control. Chest x-ray post-line insertion showed some smaller lung volumes. No pneumothorax. Some early atelectatic changes in lung bases bilaterally. An art line catheter was also inserted. Subsequently blood gases showed a pH of 7.3 with a pCO2 of 47 and pO2 of 52 and the patient was placed on 100% nonrebreather facemask. On 10/11/2017, the patient is being seen in follow-up in the intensive care unit. The patient came in with a septic arthritis and sepsis to the intensive care unit. The patient was lethargic and septic looking in addition to fever tachycardia leukocytosis. He was also in acute hypoxic respiratory failure. He made resuscitation was done. Following that the patient got transferred to the operating room where the patient underwent irrigation and debridement of the left ankle joint and there was application of a wound VAC to the left ankle. The patient is currently back to the intensive care unit. This morning is awake and alert. He is following commands and answering questions. He is on high flow oxygen at 12 L/m nasal cannula and this will be gradually weaned down as the patient's oxidation is improved. Denies having any respiratory distress. He is less tachycardic compared to yesterday. He did not require any pressors. The blood cultures positive for staph aureus. The patient is currently on daptomycin. He is also on IV Zosyn. A wound VAC is applied to the left foot. His blood sugars under better control with an insulin drip. He is morbidly obese. Denies having any complaints. No chest pain. No shortness of breath. No altered mentation. No other complaints otherwise for now. His white cell count remains elevated at 20.8. He did suffer an acute kidney injury in the creatinine is up to 2. The patient continues to be an IV fluids and is producing adequate amount of urine output. The neck fluid balance is + 3.5 L over the past 24 hours. Patient was reevaluated today on 10/14/2017, remains in the ICU, hemodynamically stable, chest x-ray is showing some worsening, and he seems to be demonstrating a bit more shortness of breath. Urine output has been marginal. And his chest x-ray is showing interstitial edema could very well be noncardiogenic in nature. Hence I have recommended starting the patient on BiPAP with IPAP of 12 EPAP of 4 and I recommended a dose of Lasix 40 mg IV push. CBC showed leukocytosis but improving compared to admission and his basic metabolic profile is normal. BUN is 59 and creatinine is 2.10. Apparently his renal functioning is worsening even prior to giving him any diuretics. Patient remains on daptomycin and Zosyn as per infectious disease on the case. Reevaluated today on 10/15/2017, patient took a downhill course last night, and he required intubation and mechanical ventilation. Patient went on to develop relative hypoxemia and worsening hypercapnia, worsening chest x-ray pointing to mild ARDS based on the [employer] criteria. PaO2/FiO2, was calculated to be 263 again that is pointing to a mild ARDS as per the [employer] criteria. His ABG showed a pO2 of 158 pCO2 of 51 pH of 7.26 and this was on the 60% FiO2. Hence The patient on the same tidal volume which is 500 and his respiratory rate is up to 26. Noted on the ventilator and the patient was having ineffective trigger, and dyssynchrony with the ventilator, hence with slightly more sedation we corrected the problem easily. All the labs were reviewed today, WBC count of 13.6 hemoglobin is 9.6 and his basic metabolic profile was also reviewed, his creatinine is 2.0) very close to his baseline in the last few days chest x-ray was also reviewed, showing bibasilar interstitial infiltrates, but left more so than right. Nutrition was addressed, and the patient will be started on enteral feeding. Reevaluated today on 10/16/2017, remains on mechanical ventilation, the ventilator settings are basically the same, and reviewed his airway mechanics, seems to be improving. ABG this morning showed a pO2 of 104 pCO2 of 40 pH of 7.37. All labs were reviewed, renal profile is improving, sodium is up to 149, hence we'll change the main IV fluid to D5 45, and we will give free water flushes via nasogastric tube with the feedings. WBC count is 12.6 hemoglobin is 9.9. Chest x-ray continues to show by basilar infiltrates. And interstitial pattern consistent with ARDS. PaO2/FiO2 is calculated to be at 260. Again that's consistent with a mild ARDS based on that [employer] criteria. I was considering weaning trial today, however considering the patient is going back to surgery today, and this is scheduled sometime this afternoon, I would hold on the weaning trial today, and explained to the that it would be best to wait for another day since surgery is scheduled this afternoon. In the meantime we'll continue antibiotics as per infectious disease on the case. Patient is now on Kefzol 2 g every 8. Remains on GI and DVT prophylaxis. Reevaluated today on 10/17/2017, remains on mechanical ventilation, same ventilator settings, unchanged. Chest x-ray is basically about the same. ABG showed a pO2 of 70 pCO2 of 40 pH of 7.41 and this was on 40% FiO2. Electrolytes were reviewed, sodium remains elevated at 149, and this is in spite of changing his IV fluid and free water boluses given via nasogastric tube. The dose of free water will be increased, and the main IV fluid will be changed to D5W today. However his renal functioning seems to be improving BUN is down to 39 and creatinine is down to 0.90. Patient was awakened, propofol was discontinued, however as he came off sedation, patient was extremely agitated, restless, he was gagging on the endotracheal tube, and his respiratory rate was in the 40s. Patient did follow simple instructions, and clearly felt that he is not ready to be weaned and extubated at this point. His blood pressure went up as high as 220. Hence no further weaning trials were made, patient was placed back on assist control mode of mechanical ventilation, and at this point I felt it is not ready for weaning. He'll be placed back on propofol and sedation. The chest x-ray again was reviewed and findings are pointing to ARDS. The PaO2/FiO2 seems to be lower today, and now it seems to be a picture of moderate ARDS. Patient was reevaluated today on 10/18/2017, remains on mechanical ventilation, with same ventilator settings, chest x-ray is showing slight improvement, and his ABG is definitely improved this morning. WBC count is 17.3 hemoglobin is 10 ABG showed a pO2 of 122 pCO2 of 37 pH of 7.45. Electrolytes were normal and his BUN is significantly improved down to 26 and his creatinine is also improved down to 0.79 compared to 2.10 few days ago. Chest x-ray showed improvement with persistent bibasilar atelectasis and/or infiltrates at the bases. Medications were all reviewed, however the only change today is the fact that I switch him from propofol to Precedex. The reason this was done and was mostly to facilitate weaning if possible. Yesterday the patient became extremely agitated, restless, unable to follow any instructions once propofol was discontinued. Hence I could not do any weaning. Today I switch the patient to Precedex, he is off propofol, and we will try to give him hopefully weaning trial later today when he is fully awake. Made further adjustments on the ventilator today, increased his tidal volume to 550, increase the flow rate and increase the PEEP from 5-8. With that change, I have noted that her airway mechanics. With better plateau pressures. Objective - Vital Signs Vital signs: Vital Signs Temp 99.2 F 10/18/17 11:00 Pulse 69 10/18/17 11:00 Resp 20 10/18/17 11:00 BP 167/79 10/18/17 11:00 Pulse Ox 97 10/18/17 11:00 Intake & Output 10/17/17 10/18/17 10/18/17 18:59 06:59 18:59 Intake Total 2888.353 1928.202 1666.991 Output Total 2700 1675 1420 Balance -771.368 5983.202 246.991 Weight 161 kg 162 kg 162 kg Intake: IV 100 825 450 Dextrose 5% in Water 1, 825 450 000 ml @ 75 mls/hr IV . [id number] [facility] Rx#:[id number] Dextrose 5%-0.45% NaCl 1, 100 000 ml @ 100 mls/hr IV . Q10H [facility] Rx#:[id number] Intake, IV Titration 833.107 661.202 376.991 Amount Dexmedetomidine/0.9% NaCl 20.25 (Pmx) 400 mcg In Empty Bag 1 bag @ Per Protocol IV .Q0M [facility] Rx#:[id number] Insulin Regular 100 unit 103.454 87.802 56.741 In Sodium Chloride 0.9% 100 ml @ Per Protocol IV .Q0M [facility] Rx#:[id number] Magnesium Sulfate-D5w Pmx 100 1 gm In Dextrose/Water 1 100ml.bag @ 100 mls/hr IVPB Q1H [facility] Rx#: [id number] Propofol 1,000 mg In 729.653 573.400 200.000 Empty Bag 1 bag @ Titrate IV .Q0M [facility] Rx#: [id number] Oral 910 60 Tube Feeding 40 240 140 Other 900 700 Output: Drainage 500 Left Ankle 500 Urine 2200 1675 1420 Other: Voiding Method Indwelling Catheter Indwelling Catheter Indwelling Catheter # Voids 1 ABP, PAP, CO, CI - Last Documented Arterial Blood Pressure 148/60 - Exam Physical Exam: Revealed a 52-year-old white male, obese, resting on mechanical ventilation, in no distress. On propofol drip. Which I just switched to Precedex drip. Head: Atraumatic, normocephalic. Endotracheal tube is intact HEENT:[Neck is supple.] [No neck masses.] [No thyromegaly.] [No JVD.] Chest: [Crackles and rhonchi noted at the bases, no wheezes, no chest wall tenderness.] Cardiac Exam: [Normal S1 and S2, no S3 gallop, no murmur.] Abdomen: [Obese, Soft, nontender, no megaly, no rebound, no guarding, normal bowel sounds.] Extremities: left ankle is wrapped with sterile dressing, going back to surgery today on his left ankle Neurological Exam: Fully sedated on propofol drip, opens eyes to deep stimuli. Lymphatics: No lymphadenopathy - Labs CBC & Chem 7: 10/18/17 05:30 10/18/17 05:30 Labs: Abnormal Lab Results - Last 24 Hours (Table) 10/17/17 10/17/17 10/17/17 Range/Units 13:08 14:06 15:00 WBC (3.8-10.6) k/uL RBC (4.30-5.90) m/uL Hgb (13.0-17.5) gm/dL Hct (39.0-53.0) % MCHC (31.0-37.0) g/dL Neutrophils # (1.3-7.7) k/uL Neutrophils # (Manual) (1.3-7.7) k/uL Metamyelocytes # (Man) (0) k/uL Myelocytes # (Manual) (0) k/uL ABG pO2 (83-108) mmHg ABG HCO3 (21-25) mmol/L ABG Total CO2 (19-24) mmol/L ABG O2 Saturation (94-97) % Sodium (137-145) mmol/L Chloride (98-107) mmol/L BUN (9-20) mg/dL Glucose (74-99) mg/dL POC Glucose (mg/dL) 176 H 168 H 174 H (75-99) mg/dL 10/17/17 10/17/17 10/17/17 Range/Units 16:09 16:44 16:57 WBC (3.8-10.6) k/uL RBC (4.30-5.90) m/uL Hgb (13.0-17.5) gm/dL Hct (39.0-53.0) % MCHC (31.0-37.0) g/dL Neutrophils # (1.3-7.7) k/uL Neutrophils # (Manual) (1.3-7.7) k/uL Metamyelocytes # (Man) (0) k/uL Myelocytes # (Manual) (0) k/uL ABG pO2 (83-108) mmHg ABG HCO3 (21-25) mmol/L ABG Total CO2 (19-24) mmol/L ABG O2 Saturation (94-97) % Sodium 146 H (137-145) mmol/L Chloride (98-107) mmol/L BUN (9-20) mg/dL Glucose (74-99) mg/dL POC Glucose (mg/dL) 191 H 192 H (75-99) mg/dL 10/17/17 10/17/17 10/17/17 Range/Units 18:03 18:55 20:02 WBC (3.8-10.6) k/uL RBC (4.30-5.90) m/uL Hgb (13.0-17.5) gm/dL Hct (39.0-53.0) % MCHC (31.0-37.0) g/dL Neutrophils # (1.3-7.7) k/uL Neutrophils # (Manual) (1.3-7.7) k/uL Metamyelocytes # (Man) (0) k/uL Myelocytes # (Manual) (0) k/uL ABG pO2 (83-108) mmHg ABG HCO3 (21-25) mmol/L ABG Total CO2 (19-24) mmol/L ABG O2 Saturation (94-97) % Sodium (137-145) mmol/L Chloride (98-107) mmol/L BUN (9-20) mg/dL Glucose (74-99) mg/dL POC Glucose (mg/dL) 206 H 187 H 178 H (75-99) mg/dL 10/17/17 10/17/17 10/17/17 Range/Units 21:10 21:56 23:08 WBC (3.8-10.6) k/uL RBC (4.30-5.90) m/uL Hgb (13.0-17.5) gm/dL Hct (39.0-53.0) % MCHC (31.0-37.0) g/dL Neutrophils # (1.3-7.7) k/uL Neutrophils # (Manual) (1.3-7.7) k/uL Metamyelocytes # (Man) (0) k/uL Myelocytes # (Manual) (0) k/uL ABG pO2 (83-108) mmHg ABG HCO3 (21-25) mmol/L ABG Total CO2 (19-24) mmol/L ABG O2 Saturation (94-97) % Sodium (137-145) mmol/L Chloride (98-107) mmol/L BUN (9-20) mg/dL Glucose (74-99) mg/dL POC Glucose (mg/dL) 186 H 171 H 160 H (75-99) mg/dL 10/18/17 10/18/17 10/18/17 Range/Units 00:00 01:10 01:46 WBC (3.8-10.6) k/uL RBC (4.30-5.90) m/uL Hgb (13.0-17.5) gm/dL Hct (39.0-53.0) % MCHC (31.0-37.0) g/dL Neutrophils # (1.3-7.7) k/uL Neutrophils # (Manual) (1.3-7.7) k/uL Metamyelocytes # (Man) (0) k/uL Myelocytes # (Manual) (0) k/uL ABG pO2 (83-108) mmHg ABG HCO3 (21-25) mmol/L ABG Total CO2 (19-24) mmol/L ABG O2 Saturation (94-97) % Sodium (137-145) mmol/L Chloride (98-107) mmol/L BUN (9-20) mg/dL Glucose (74-99) mg/dL POC Glucose (mg/dL) 159 H 166 H 153 H (75-99) mg/dL 10/18/17 10/18/17 10/18/17 Range/Units 03:11 04:02 05:00 WBC 20.0 H (3.8-10.6) k/uL RBC 2.69 L (4.30-5.90) m/uL Hgb 7.4 L D (13.0-17.5) gm/dL Hct 24.1 L (39.0-53.0) % MCHC 30.8 L (31.0-37.0) g/dL Neutrophils # 16.1 H (1.3-7.7) k/uL Neutrophils # (Manual) (1.3-7.7) k/uL Metamyelocytes # (Man) (0) k/uL Myelocytes # (Manual) (0) k/uL ABG pO2 (83-108) mmHg ABG HCO3 (21-25) mmol/L ABG Total CO2 (19-24) mmol/L ABG O2 Saturation (94-97) % Sodium (137-145) mmol/L Chloride (98-107) mmol/L BUN (9-20) mg/dL Glucose (74-99) mg/dL POC Glucose (mg/dL) 154 H 165 H (75-99) mg/dL 10/18/17 10/18/17 10/18/17 Range/Units 05:00 05:02 05:05 WBC (3.8-10.6) k/uL RBC (4.30-5.90) m/uL Hgb (13.0-17.5) gm/dL Hct (39.0-53.0) % MCHC (31.0-37.0) g/dL Neutrophils # (1.3-7.7) k/uL Neutrophils # (Manual) (1.3-7.7) k/uL Metamyelocytes # (Man) (0) k/uL Myelocytes # (Manual) (0) k/uL ABG pO2 (83-108) mmHg ABG HCO3 (21-25) mmol/L ABG Total CO2 (19-24) mmol/L ABG O2 Saturation (94-97) % Sodium (137-145) mmol/L Chloride 109 H (98-107) mmol/L BUN 26 H (9-20) mg/dL Glucose 148 H (74-99) mg/dL POC Glucose (mg/dL) 129 H 143 H (75-99) mg/dL 10/18/17 10/18/17 10/18/17 Range/Units 05:30 05:30 06:05 WBC 17.3 H (3.8-10.6) k/uL RBC 3.48 L (4.30-5.90) m/uL Hgb 10.0 L D (13.0-17.5) gm/dL Hct 31.2 L (39.0-53.0) % MCHC (31.0-37.0) g/dL Neutrophils # (1.3-7.7) k/uL Neutrophils # (Manual) 12.60 H (1.3-7.7) k/uL Metamyelocytes # (Man) 1.21 H (0) k/uL Myelocytes # (Manual) 0.35 H (0) k/uL ABG pO2 122 H (83-108) mmHg ABG HCO3 26 H (21-25) mmol/L ABG Total CO2 27 H (19-24) mmol/L ABG O2 Saturation 99.3 H (94-97) % Sodium (137-145) mmol/L Chloride 109 H (98-107) mmol/L BUN 26 H (9-20) mg/dL Glucose 164 H (74-99) mg/dL POC Glucose (mg/dL) (75-99) mg/dL 10/18/17 10/18/17 10/18/17 Range/Units 06:13 07:10 08:12 WBC (3.8-10.6) k/uL RBC (4.30-5.90) m/uL Hgb (13.0-17.5) gm/dL Hct (39.0-53.0) % MCHC (31.0-37.0) g/dL Neutrophils # (1.3-7.7) k/uL Neutrophils # (Manual) (1.3-7.7) k/uL Metamyelocytes # (Man) (0) k/uL Myelocytes # (Manual) (0) k/uL ABG pO2 (83-108) mmHg ABG HCO3 (21-25) mmol/L ABG Total CO2 (19-24) mmol/L ABG O2 Saturation (94-97) % Sodium (137-145) mmol/L Chloride (98-107) mmol/L BUN (9-20) mg/dL Glucose (74-99) mg/dL POC Glucose (mg/dL) 148 H 162 H 181 H (75-99) mg/dL 10/18/17 10/18/17 10/18/17 Range/Units 09:00 11:02 11:57 WBC (3.8-10.6) k/uL RBC (4.30-5.90) m/uL Hgb (13.0-17.5) gm/dL Hct (39.0-53.0) % MCHC (31.0-37.0) g/dL Neutrophils # (1.3-7.7) k/uL Neutrophils # (Manual) (1.3-7.7) k/uL Metamyelocytes # (Man) (0) k/uL Myelocytes # (Manual) (0) k/uL ABG pO2 (83-108) mmHg ABG HCO3 (21-25) mmol/L ABG Total CO2 (19-24) mmol/L ABG O2 Saturation (94-97) % Sodium (137-145) mmol/L Chloride (98-107) mmol/L BUN (9-20) mg/dL Glucose (74-99) mg/dL POC Glucose (mg/dL) 168 H 162 H 165 H (75-99) mg/dL Microbiology - Last 24 Hours (Table) 10/17/17 05:50 Blood Culture - Preliminary Blood No Growth after 24 hours 10/17/17 04:07 Blood Culture - Preliminary Blood No Growth after 24 hours 10/15/17 05:15 Gram Stain - Final Sputum Sputum Culture - Final Jayne albicans Assessment and Plan Assessment: 1 acute septic arthritis of the left ankle, status post left ankle irrigation and debridement and the patient is postop day #6, patient underwent another irrigation and debridement on 10/16/2017 and he is postoperative day # 2 2 acute severe sepsis secondary to above and the blood cultures positive for MSSA, presently on Kefzol 2 g every 8 3 acute fever and chills and leukocytosis and sinus tachycardia secondary to above 4 altered mental status secondary to above, improved 5 acute hypoxic and hypercapnic respiratory failure secondary to mild ARDS with PaO2/FiO2 ratio of 263. This is relatively mild based on the [employer] criteria. Nonetheless, patient required intubation and mechanical ventilation 6 acute leukocytosis secondary to above 7 diabetes mellitus with elevated blood sugar secondary underlying sepsis, currently on insulin drip for blood sugar control 8 severe peripheral neuropathy 9 history of chronic wounds and ulceration in lower extremities bilaterally 10 charcoat joints 11 morbid obesity 12 hypertension, history of 13 hyperlipidemia 14 hypothyroidism 15 previous history of septic event and previous history of amputation including a partial dictation of the right foot 16 acute kidney injury related to severe sepsis, significantly improved today. 17 acute hypernatremia secondary to free water deficit, this will be corrected, and now sodium is back to normal.. Recommendation: Continue present supportive care measures, antibiotics /Kefzol continue to monitor closely in the ICU, continue mechanical ventilation, nutritional support, antibiotics, some vent settings changed today, propofol was discontinued placed on Precedex instead, hopefully we'll be able to give the patient a spontaneous breathing trial today, but I would like his mental status to be more improved before we could proceed any further. is at bedside, updated on his condition. Critical care time is 45 minutes. We'll continue to follow. Time with Patient: Greater than 30
[2017-10-18 13:25] LABS: Glucose,Whole Blood 165 mg/dL (75-99)
[2017-10-18] MEDS: METOCLOPRAMIDE 5 MG/ML 2 ML VIAL IVP SCH ×2 (13:28→17:42)
[2017-10-18] MEDS ORDERED: DEXMEDETOMIDINE 400 MCG in SODIUM CHLORIDE 0.9% 100 ML IV SCH (13:45)
[2017-10-18] MEDS ORDERED: LORazepam 2 MG/ML INJ IV STA (14:00)
[2017-10-18] MEDS ORDERED: LORazepam 2 MG/ML INJ ONE (14:00)
[2017-10-18 14:03] LABS: Glucose,Whole Blood 151 mg/dL (75-99)
[2017-10-18] MEDS: ACETAMINOPHEN TAB 325 MG TAB PO PRN (15:13)
[2017-10-18 16:19] LABS: Glucose,Whole Blood 165 mg/dL (75-99)
--- NOTE | 2017-10-18 17:26 | PN ---
PROGRESS NOTE DATE OF SERVICE: 10/18/17. PRESENTING COMPLAINT: Sepsis. INTERVAL HISTORY: This is a patient who presented with septic arthritis left ankle, status post I and D x2. Cultures growing MSSA. The patient has been on the ventilator. Patient also had ARDS. The patient remains on the ventilator, FiO2 40%, PEEP of 5. Getting IV fluids, on antibiotics. The patient also got a wound VAC on the left foot. REVIEW OF SYSTEMS: Patient is intubated. CURRENT MEDICATIONS: Reviewed that include IV Ancef. The patient remains on Levophed at 5 mcg and also on propofol and on insulin drip. EXAMINATION: Temperature 101.9, pulse 109, respiration 33, blood pressure 143/54, pulse ox 93%. GENERAL APPEARANCE: Lying in bed, intubated. EYES: Pupils equal. Conjunctivae normal. HEENT: External appearance of nose and ears normal. Oral cavity, endotracheal tube in place. NECK: JVD unable to assess. Mass not palpable. RESPIRATORY: Effort normal. Lungs, decreased breath sounds. CARDIOVASCULAR: First and second sounds normal, no edema. ABDOMEN: Distended, soft. Liver and spleen not palpable. Left ankle with 2 wound VACs. INVESTIGATIONS: White count 17.3, hemoglobin 10, potassium 3.5, BUN 26, creatinine 0.79. Cultures have grown Staph aureus including blood cultures. ASSESSMENT: 1. Septic arthritis, left ankle, status post I and D x2 causing severe sepsis with both the wound and blood cultures growing MSSA. The patient has got a wound VAC in place. 2. Acute delirium from septic encephalopathy present on admission. 3. Gastroesophageal reflux disease. 4. Hypotensive shock. The patient remains on pressure support on Levophed. 5. History of essential hypertension. 6. Diabetes mellitus type 2 uncontrolled with hypoglycemia, remains on insulin drip. 7. Hypothyroid. 8. Peripheral neuropathy from diabetes. 9. Hiatal hernia. 10.Hyperlipidemia. 11.Morbid obesity, BMI 42.9. 12.Moderate ARDS from underlying sepsis leading to acute hypoxic respiratory failure. Remains on ventilator support. 13.Acute renal failure likely from acute tubular necrosis from sepsis. 14.Left ankle Charcot joint. 15.Hypernatremia from free water deficit. PLAN: Continue medication and treatment plan. If the patient continues to spike fever, the patient may need disarticulation of the ankle joint if that being the source for infection. Will let Dr. Mi and Orthopedics decide on that. The patient to continue on broad-spectrum antibiotics. Supportive care. Prognosis guarded. MMODL / IJN: [id number] /
[2017-10-18 18:57] LABS: Glucose,Whole Blood 157 mg/dL (75-99)
[2017-10-18 20:03] LABS: Glucose,Whole Blood 166 mg/dL (75-99)
[2017-10-18 21:03] LABS: Glucose,Whole Blood 162 mg/dL (75-99)
[2017-10-18] MEDS: ATORVASTATIN 40 MG TAB PO SCH (21:36)
[2017-10-18 23:01] LABS: Glucose,Whole Blood 150 mg/dL (75-99)
[2017-10-19] MEDS: METOCLOPRAMIDE 5 MG/ML 2 ML VIAL IVP SCH ×4 (00:39→18:49)
[2017-10-19] MEDS: HEPARIN SODIUM,PORCINE 5,000 UNIT/ML 1 ML VIAL SQ SCH ×4 (00:44→23:49)
[2017-10-19] MEDS: ceFAZolin IN SWFI 2 GM/20 ML SYRINGE IVP SCH ×4 (00:46→23:37)
[2017-10-19 00:56] LABS: Glucose,Whole Blood 164 mg/dL (75-99)
[2017-10-19] MEDS: PROPOFOL 1,000 MG in EMPTY BAG 1 BAG IV SCH ×11 (01:08→23:13)
[2017-10-19 03:08] LABS: Glucose,Whole Blood 159 mg/dL (75-99)
[2017-10-19] MEDS: MORPHINE SULFATE 4 MG/0.8 ML SYRINGE (INJ) IVP PRN ×3 (04:03→22:22)
[2017-10-19] MEDS: hydrALAZINE HCL 20 MG/ML 1 ML VIAL IVP PRN (05:15)
[2017-10-19 05:27] LABS: Glucose,Whole Blood 164 mg/dL (75-99)
[2017-10-19 05:34] LABS: HCT 31.7 % (39.0-53.0); HGB 9.8 gm/dL (13.0-17.5); MCH 27.3 pg (25.0-35.0); Platelet Count 374 k/uL (150-450); RDW 14.3 % (11.5-15.5); WBC 16.5 k/uL (3.8-10.6)
[2017-10-19 06:03] LABS: Band Neutrophils % 5 %; Eosinophils # (M) 0.83 k/uL (0-0.7); Lymphocytes # (M) 2.31 k/uL (1.0-4.8); Monocytes # (M) 0.83 k/uL (0-1.0); Neutrophils % (M) 71 %; Nucleated Red Blood Cells 0 /100 WBC (0-0); Polychromasia Present; Total Cells Counted 100
[2017-10-19 06:07] LABS: Anion Gap 8 mmol/L; Blood Urea Nitrogen 24 mg/dL (9-20); Calcium 8.6 mg/dL (8.4-10.2); Carbon Dioxide 26 mmol/L (22-30); Chloride 105 mmol/L (98-107); Glucose 162 mg/dL (74-99); Magnesium 1.8 mg/dL (1.6-2.3); Phosphorus 4.5 mg/dL (2.5-4.5); Potassium 3.9 mmol/L (3.5-5.1); Sodium 139 mmol/L (137-145)
[2017-10-19] MEDS: LEVOTHYROXINE 75 MCG TAB PO SCH (06:20)
[2017-10-19 06:44] LABS: Glucose,Whole Blood 173 mg/dL (75-99)
[2017-10-19] MEDS ORDERED: POTASSIUM BICARBONATE/CIT AC 20 MEQ TABLET.EFF NG-TUBE ONE (06:45)
[2017-10-19] MEDS: MAGNESIUM SULFATE-D5W PMX 1 GM in DEXTROSE/WATER 1 100ML.BAG IVPB SCH ×2 (06:48→08:36)
--- NOTE | 2017-10-19 06:54 | XR ---
EXAMINATION TYPE: XR chest 1V portable DATE OF EXAM: 10/19/2017 HISTORY: Tube placement. REFERENCE: Previous study dated 10/18/2017. FINDINGS: The patient is NG tube, ET tube and left internal jugular catheter remain in place, unchang ed in appearance. The heart is mildly enlarged. There is bibasilar airspace disease. This is worsened slightly on the r ight. There are bilateral effusions which are small. There is vascular congestion without nisha edema . IMPRESSION: WORSENING RIGHT BASILAR AIRSPACE DISEASE.
--- NOTE | 2017-10-19 07:40 | P.PN ---
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 The patient is been having some difficulties with his left ankle and following with the orthopedic surgeon. Because of some discomfort at the joint he was measured and given a new bracing device for the foot and ankle. However grommet on the dorsum of the foot resulted in a bit of an ulcer and he was concerned and sought care in the office. The patient had difficulty making the appointment because of the weather and has significant distance from work to the office and reschedule. When he came to the office earlier this week the ulceration had healed and he was feeling better but was still having some swelling to the ankle area. He had no fever or chills at the time of presentation to the office, but did have the swelling to the ankle area for which she had a specialty boot that have been designed that he was not wearing that day. He however presents to the emergency center because of the sudden onset of inability to bear weight to the ankle because of the amount of pain that he started to have. Shortly thereafter he became febrile and has had a rapid decline in his status with evidence of sepsis and presentation to the intensive care unit. The case is discussed with the reading specialist as well as the orthopedic foot and ankle specialist. Given his rapid decline in status he'll go to the operating room this afternoon. The patient is acutely ill with fever chills generalized weakness and malaise and some alteration of his mental status 10/13/2017 patient remains in intensive care unit with ongoing sepsis. Appears to have acute lung injury and also has an elevation of his creatinine likely with an acute renal injury also occurring from his sepsis. Laboratories revealed evidence of staph aureus await final susceptibility. Follow blood cultures in process reasonable cultures are positive. Patient continues to have some ongoing fevers and is admitted of nausea with the response to Zofran. He is still in a warm flushed phase of sepsis and hopefully now that he has been resuscitated will have further improvement of his status. 10/14/2017 patient does have some improvement today. He is not hypotensive not requiring vasopressors but is still on high flow oxygen for his acute lung injury. He has had fevers but down to 99.9 still feels poorly and has significant pain of the left foot and ankle area. 10/15/2017 the patient had deterioration of his respiratory status last night with his acute lung injury and developing early ARDS. He required intubation with sedation and mechanical ventilation. With improved sedation he is quite comfortable today and is synchronous with the vent with adequate oxygenation and improved blood gas. The patient is quite comfortable at this time and receiving tube feeds for his nutritional needs. Fever and leukocytosis are trending down 10/16/2017 is noted the patient remains ventilated as well as with intubation and sedation. He is quite comfortable today. Has been taking back to the operating room for further evaluation of the medial aspect of the right ankle, some infected bone was debrided but no further extensive pockets of purulence were found. Wound VAC applied. 10/17/2017 patient has had a weaning trial today but it was not successful in counseling. Remains intubated sedated and mechanically ventilated. He does to do quite comfortable. Wound vacs are in place after the debridement of yesterday to the left foot. Fever has trended down and he is hemodynamically stable 10/18/2017 the patient had an attempt for a weaning trial but this however did not go well the patient became significantly hypertensive. With multiple medications this is now settled. Today the wound vacs will be changed further care will be given. Is much more calm this afternoon and hopefully further weaning trials will go well over the next few days. The fever has resolved and there is now a negative blood culture. Objective - Vital Signs Vital signs: Vital Signs Temp 99.1 F 10/19/17 04:00 Pulse 80 10/19/17 06:00 Resp 20 10/19/17 06:00 BP 142/63 10/18/17 22:00 Pulse Ox 97 10/19/17 06:00 Intake & Output 10/18/17 10/19/17 10/19/17 18:59 06:59 18:59 Intake Total 2860.637 2555.658 Output Total 2625 1575 Balance 235.637 980.658 Weight 162 kg 162.2 kg Intake: IV 900 975 Dextrose 5% in Water 1, 900 975 000 ml @ 75 mls/hr IV . [id number] [facility] Rx#:[id number] Intake, IV Titration 620.637 640.658 Amount Dexmedetomidine 400 mcg 13.23 In Sodium Chloride 0.9% 100 ml @ Per Protocol IV .Q0M [facility] Rx#:[id number] Dexmedetomidine/0.9% NaCl 34.675 (Pmx) 400 mcg In Empty Bag 1 bag @ Per Protocol IV .Q0M [facility] Rx#:[id number] Insulin Regular 100 unit 105.995 78.744 In Sodium Chloride 0.9% 100 ml @ Per Protocol IV .Q0M [facility] Rx#:[id number] Magnesium Sulfate-D5w Pmx 100 1 gm In Dextrose/Water 1 100ml.bag @ 100 mls/hr IVPB Q1H [facility] Rx#: [id number] Propofol 1,000 mg In 166.737 561.914 Empty Bag 1 bag @ Per Protocol IV .Q0M [facility] Rx#: [id number] Propofol 1,000 mg In 200.000 Empty Bag 1 bag @ Titrate IV .Q0M [facility] Rx#: [id number] Tube Feeding 240 340 Other 1100 600 Output: Drainage 200 Left Ankle 200 Urine 2425 1575 Other: Voiding Method Indwelling Catheter Indwelling Catheter # Voids 1 ABP, PAP, CO, CI - Last Documented Arterial Blood Pressure 164/53 - Exam 52-year-old male presents to Hospital feeling acutely ill found to have evidence of fever and then rapidly developed sepsis, HEENT: Anicteric conjunctiva are pink and moist nasal mucosa grossly intact without significant lesions, patient is now intubated and sedated Neck: The neck is supple without significant lymphadenopathy or thyromegaly. Lungs: Good bilateral air entry without significant crackles or wheezing. There is no significant bronchial sounds. There is no egophony or dullness. Heart: Tachycardic but regular with an audible S1 and S2 soft S4 There is no significant murmur click or rub, PMI was nondisplaced. Abdomen: Obese Positive bowel sounds soft and nontender without palpable masses or organomegaly. There was no guarding or rebound. Extremities: The upper extremities have excellent pulses they are symmetric, no significant petechiae or telangiectasia. No splinter hemorrhages were noted. Right lower extremity has evidence of the prior great toe amputation which is well healed. Left lower extremity reveals evidence of the surgical incision and drainage performed in the wound VAC is in place. There is still some swelling but the extensive swelling at the ankle has started to improve. There is no inguinal lymphadenopathy. Neuro: Sedated and mechanically ventilated - Labs CBC & Chem 7: 10/19/17 05:30 10/19/17 05:30 Labs: Abnormal Lab Results - Last 24 Hours (Table) 10/18/17 10/18/17 10/18/17 Range/Units 08:12 09:00 11:02 WBC (3.8-10.6) k/uL RBC (4.30-5.90) m/uL Hgb (13.0-17.5) gm/dL Hct (39.0-53.0) % Neutrophils # (Manual) (1.3-7.7) k/uL Eosinophils # (Manual) (0-0.7) k/uL BUN (9-20) mg/dL Glucose (74-99) mg/dL POC Glucose (mg/dL) 181 H 168 H 162 H (75-99) mg/dL 10/18/17 10/18/17 10/18/17 Range/Units 11:57 13:22 14:01 WBC (3.8-10.6) k/uL RBC (4.30-5.90) m/uL Hgb (13.0-17.5) gm/dL Hct (39.0-53.0) % Neutrophils # (Manual) (1.3-7.7) k/uL Eosinophils # (Manual) (0-0.7) k/uL BUN (9-20) mg/dL Glucose (74-99) mg/dL POC Glucose (mg/dL) 165 H 165 H 151 H (75-99) mg/dL 10/18/17 10/18/17 10/18/17 Range/Units 16:15 18:55 20:01 WBC (3.8-10.6) k/uL RBC (4.30-5.90) m/uL Hgb (13.0-17.5) gm/dL Hct (39.0-53.0) % Neutrophils # (Manual) (1.3-7.7) k/uL Eosinophils # (Manual) (0-0.7) k/uL BUN (9-20) mg/dL Glucose (74-99) mg/dL POC Glucose (mg/dL) 165 H 157 H 166 H (75-99) mg/dL 10/18/17 10/18/17 10/19/17 Range/Units 21:01 22:59 00:54 WBC (3.8-10.6) k/uL RBC (4.30-5.90) m/uL Hgb (13.0-17.5) gm/dL Hct (39.0-53.0) % Neutrophils # (Manual) (1.3-7.7) k/uL Eosinophils # (Manual) (0-0.7) k/uL BUN (9-20) mg/dL Glucose (74-99) mg/dL POC Glucose (mg/dL) 162 H 150 H 164 H (75-99) mg/dL 10/19/17 10/19/17 10/19/17 Range/Units 03:06 05:25 05:30 WBC (3.8-10.6) k/uL RBC (4.30-5.90) m/uL Hgb (13.0-17.5) gm/dL Hct (39.0-53.0) % Neutrophils # (Manual) (1.3-7.7) k/uL Eosinophils # (Manual) (0-0.7) k/uL BUN 24 H (9-20) mg/dL Glucose 162 H (74-99) mg/dL POC Glucose (mg/dL) 159 H 164 H (75-99) mg/dL 10/19/17 10/19/17 Range/Units 05:30 06:42 WBC 16.5 H (3.8-10.6) k/uL RBC 3.60 L (4.30-5.90) m/uL Hgb 9.8 L (13.0-17.5) gm/dL Hct 31.7 L (39.0-53.0) % Neutrophils # (Manual) 12.50 H (1.3-7.7) k/uL Eosinophils # (Manual) 0.83 H (0-0.7) k/uL BUN (9-20) mg/dL Glucose (74-99) mg/dL POC Glucose (mg/dL) 173 H (75-99) mg/dL Microbiology - Last 24 Hours (Table) 10/17/17 04:07 Blood Culture - Preliminary Blood No Growth after 48 hours 10/17/17 05:50 Blood Culture - Preliminary Blood No Growth after 24 hours Laboratory Results WBC 16.5 k/uL (3.8-10.6) H 10/19/17 05:30 RBC 3.60 m/uL (4.30-5.90) L 10/19/17 05:30 Hgb 9.8 gm/dL (13.0-17.5) L 10/19/17 05:30 Hct 31.7 % (39.0-53.0) L 10/19/17 05:30 MCV 88.0 fL (80.0-100.0) 10/19/17 05:30 MCH 27.3 pg (25.0-35.0) 10/19/17 05:30 MCHC 31.0 g/dL (31.0-37.0) 10/19/17 05:30 RDW 14.3 % (11.5-15.5) 10/19/17 05:30 Plt Count 374 k/uL (150-450) 10/19/17 05:30 Neutrophils % 81 % 10/18/17 05:00 Neutrophils % (Manual) 71 % 10/19/17 05:30 Band Neutrophils % 5 % 10/19/17 05:30 Lymphocytes % 10 % 10/18/17 05:00 Lymphocytes % (Manual) 14 % 10/19/17 05:30 Monocytes % 4 % 10/18/17 05:00 Monocytes % (Manual) 5 % 10/19/17 05:30 Eosinophils % 3 % 10/18/17 05:00 Eosinophils % (Manual) 5 % 10/19/17 05:30 Basophils % 1 % 10/18/17 05:00 Metamyelocytes % 7 % 10/18/17 05:30 Myelocytes % 2 % 10/18/17 05:30 Neutrophils # 16.1 k/uL (1.3-7.7) H 10/18/17 05:00 Neutrophils # (Manual) 12.50 k/uL (1.3-7.7) H 10/19/17 05:30 Lymphocytes # 2.0 k/uL (1.0-4.8) 10/18/17 05:00 Lymphocytes # (Manual) 2.31 k/uL (1.0-4.8) 10/19/17 05:30 Monocytes # 0.8 k/uL (0-1.0) 10/18/17 05:00 Monocytes # (Manual) 0.83 k/uL (0-1.0) 10/19/17 05:30 Eosinophils # 0.7 k/uL (0-0.7) 10/18/17 05:00 Eosinophils # (Manual) 0.83 k/uL (0-0.7) H 10/19/17 05:30 Basophils # 0.1 k/uL (0-0.2) 10/18/17 05:00 Metamyelocytes # (Man) 1.21 k/uL (0) H 10/18/17 05:30 Myelocytes # (Manual) 0.35 k/uL (0) H 10/18/17 05:30 Nucleated RBCs 0 /100 WBC (0-0) 10/19/17 05:30 Manual Slide Review Performed 10/19/17 05:30 Polychromasia Present 10/19/17 05:30 Hypochromasia Slight 10/18/17 05:30 ESR 25 mm/hr (0-15) H 10/12/17 07:29 Sample Site [place] 10/18/17 06:05 ABG pH 7.45 (7.35-7.45) 10/18/17 06:05 ABG pCO2 37 mmHg (35-45) 10/18/17 06:05 ABG pO2 122 mmHg (83-108) H 10/18/17 06:05 ABG HCO3 26 mmol/L (21-25) H 10/18/17 06:05 ABG Total CO2 27 mmol/L (19-24) H 10/18/17 06:05 ABG O2 Saturation 99.3 % (94-97) H 10/18/17 06:05 ABG Base Excess 1.6 mmol/L 10/18/17 06:05 Cr Test [place] 10/18/17 06:05 ABG Lactic Acid 1.0 mmol/L (0.5-1.6) 10/12/17 18:06 FiO2 40 % 10/18/17 06:05 Sodium 139 mmol/L (137-145) 10/19/17 05:30 Potassium 3.9 mmol/L (3.5-5.1) 10/19/17 05:30 Chloride 105 mmol/L (98-107) 10/19/17 05:30 Carbon Dioxide 26 mmol/L (22-30) 10/19/17 05:30 Anion Gap 8 mmol/L 10/19/17 05:30 BUN 24 mg/dL (9-20) H 10/19/17 05:30 Creatinine 0.70 mg/dL (0.66-1.25) 10/19/17 05:30 Est GFR (CKD-EPI)AfAm >90 (>60 ml/min/1.73 sqM) 10/19/17 05:30 Est GFR (CKD-EPI)NonAf >90 (>60 ml/min/1.73 sqM) 10/19/17 05:30 Glucose 162 mg/dL (74-99) H 10/19/17 05:30 POC Glucose (mg/dL) 173 mg/dL (75-99) H 10/19/17 06:42 POC Glu Cytogeneticist ID Kale Boyd 10/19/17 06:[address] Glu mg/dL 214 10/12/17 07:29 Hemoglobin A1c 9.1 % (4.0-6.0) H 10/12/17 07:29 Plasma Lactic Acid Ron 1.5 mmol/L (0.7-2.0) 10/11/17 21:10 Uric Acid 5.6 mg/dL (3.5-8.5) 10/11/17 21:10 Calcium 8.6 mg/dL (8.4-10.2) 10/19/17 05:30 Phosphorus 4.5 mg/dL (2.5-4.5) 10/19/17 05:30 Magnesium 1.8 mg/dL (1.6-2.3) 10/19/17 05:30 AST 96 U/L (17-59) H 10/13/17 19:55 ALT 58 U/L (21-72) 10/13/17 19:55 C-Reactive Protein 45.1 mg/L (<10.0) H 10/11/17 21:10 Urine Color Yellow 10/15/17 11:30 Urine Appearance Clear (Clear) 10/15/17 11:30 Urine pH 6.0 (5.0-8.0) 10/15/17 11:30 Ur Specific [place] 1.018 (1.001-1.035) 10/15/17 11:30 Urine Protein 1+ (Negative) H 10/15/17 11:30 Urine Glucose (UA) 3+ (Negative) H 10/15/17 11:30 Urine Ketones Negative (Negative) 10/15/17 11:30 Urine Blood Small (Negative) H 10/15/17 11:30 Urine Nitrite Negative (Negative) 10/15/17 11:30 Urine Bilirubin Negative (Negative) 10/15/17 11:30 Urine Urobilinogen <2.0 mg/dL (<2.0) 10/15/17 11:30 Ur Leukocyte Esterase Negative (Negative) 10/15/17 11:30 Urine RBC <1 /hpf (0-5) 10/15/17 11:30 Urine WBC 3 /hpf (0-5) 10/15/17 11:30 Urine Mucus Rare /hpf (None) H 10/15/17 11:30 Microbiology 10/17/17 04:07 Blood Blood Culture - Preliminary No Growth after 48 hours 10/17/17 05:50 Blood Blood Culture - Preliminary No Growth after 24 hours 10/15/17 05:15 Sputum Gram Stain - Final 10/15/17 05:15 Sputum Sputum Culture - Final Jayne albicans 10/13/17 08:45 Blood Blood Culture Gram Stain - Final 10/13/17 08:45 Blood Blood Culture - Final Staphylococcus aureus 10/12/17 19:48 Ankle - Left Anaerobic Culture - Final 10/12/17 19:48 Ankle - Left Anaerobic Culture - Final 10/13/17 07:25 Blood Blood Culture Gram Stain - Final 10/13/17 07:25 Blood Blood Culture - Final Staphylococcus aureus 10/12/17 19:48 Ankle - Left Gram Stain - Final 10/12/17 19:48 Ankle - Left Wound Culture - Final Staph aureus 10/12/17 19:48 Ankle - Left Gram Stain - Final 10/12/17 19:48 Ankle - Left Wound Culture - Final Staphylococcus aureus 10/12/17 09:27 Synovial Fluid Gram Stain - Final 10/12/17 09:27 Synovial Fluid Body Fluid Culture - Final Staphylococcus aureus 10/13/17 07:25 Blood Blood Culture - Final 10/13/17 08:45 Blood Blood Culture - Final 10/11/17 21:15 Blood Blood Culture Gram Stain - Final 10/11/17 21:15 Blood Blood Culture - Final Staphylococcus aureus 10/11/17 21:15 Blood Blood Culture - Final Assessment and Plan (1) Septic arthritis of left ankle Narrative/Plan: 52-year-old male presents the emergency center with inability to bear weight to his left ankle. The patient has had some new orthotic boot manufactured in a developed a small ulcer on the dorsum of the left foot. This apparently was from a grommet from an orthotic. This was completely healed and was evaluated but was still having ongoing difficulties with ankle area. Is actively following up with orthopedic foot and ankle. The patient does have a boot that was designed that he was not wearing when he came to the office and understands it is important that he wears this when he is at work to protect his ankle from the [place] changes. Patient however now has high-grade fever chills leukocytosis and laboratories: Positive blood culture with gram-positive cocci. The patient did have aspiration per orthopedic ankle grossly purulent material was found. Originally the plan was to go to the operating him in the morning but as the patient felt worsening sepsis he is no scheduled operating room this afternoon for the incision and drainage of this abscess. Deep cultures and pathology will also be sent. Antibiotic therapy is altered from vancomycin to daptomycin. In hopes to have a more rapid bacteriocidal activity given his rapidly declining status. Enhance glucose control be important part of his healing. Leukocytosis record related to his current sepsis. There is evidence of possible culture and he will require follow blood cultures in the morning. He was monitored for any persistence of his bacteremia. There will be a coordinated effort between orthopedic ankle and infectious disease as to the care at discharge. 10/13/2017 reveals the patient still needs intensive care unit after surgery with ongoing sepsis. Continues to have fever and leukocytosis and difficulties with acute lung injury and now elevated creatinine to 2.0. Patient continues to be resuscitated and has had some improvement but minimal at this point in time. He will continue with maneuvers to improve his fever maintain his hydration and antibiotic therapy continues with daptomycin for both staph aureus and MRSA, blood culture and aspirate from the ankle are still showing staph aureus final susceptibility is pending. Patient aware that if he improves he will be receiving a jg completed a long course of IV antibiotic therapy for this extensive infection. Leukocytosis directly related to the sepsis 10/14/2017 the patient remains in intensive care unit, high flow oxygen is being utilized for his acute lung injury. His creatinine has increased further is now 2.0. Urine output is adequate. He is symptomatically stable is having difficulties with shortness of breath. Pain at the foot and ankle is predictable but the significant swelling history improving after surgical incision and drainage. Ulceration is treated with a medical history dressing. If there is no further marked improvement by tomorrow the patient will likely go back to the operating him for further incision and drainage to the site. The case is discussed with the orthopedic surgeon. 10/15/2017 the patient is noted had a decline of his status and his required intubation with sedation mechanical ventilation and is now much more comfortable. His pulmonary status is improved with the intervention. He has not requiring vasopressor therapy. We'll do blood cultures verified MSSA and antibiotic therapy was transitioned to high dose cefazolin. The patient is evaluated in conjunction with the orthopedic surgeon and the plan is for the patient to have further debridement of the ankle tomorrow to ensure there is complete drainage of any abscess at that joint site given the progression of his underlying illness. Fortunately he has not hemodynamic stable and is having improvement of his leukocytosis. We'll expect as a sepsis improves his pulmonary injury will improve also. His creatinine peaked at 2.10 now down to 2.0 and nephrology has evaluated. Follow blood cultures to ensure clearance of his bacteremia. Echocardiogram without evidence of vegetations. Is not the case is discussed with the orthopedic surgeon as well as the patient' s . 10/16/2017 the patient's been taking to the operating room today for further debridement of the left ankle. Some necrotic bone was debrided but no further large pockets of abscess were seen. Wound vacs are applied. We'll continue his high-dose antibiotic therapy for his MSSA infection from the septic arthritis left ankle. There are several evidences of improvement today, still requires no vasopressor therapy. We'll expect as he starting to improve we need to start in the next day or so. Once he is evidence of clearance of his bacteremia will need IV access placed for his long-term IV antibiotic therapy. 10/17/2017 patient is hemodynamically stable without acute no difficulties today. He over did not do well with a weaning trial. Will be tried on a daily basis as per the low heel builder. He is hemodynamic stable and his adequate urinary output. We'll continue high-dose cefazolin and supportive care. It is likely that the wound vacs removed tomorrow with further evaluation of the ankle wounds at that time. Supportive care continues he's had a slight improvement of his creatinine and his sodium is improving. 10/18/2017 the patient remains medically stable and that her vasopressor therapy. Insulin drip is reduced. He did not do well with weaning trial today with significant hypertensive response. With the medications is better at this time. Acute renal failure has resolved leukocytosis is trending to improvement. And there is no negative blood culture from October 17. If the patient improves we'll transition to alternative IV access was for a dual lumen PICC line to be placed this will help us transition to his outpatient intravenous antibiotic therapy when he is improved. The wound VAC is removed at this point in time. Saline moistened opticell silver is applied without difficulty. This will be changed every other day. Pulmonary critical care will continue to move toward extubation. Current Visit: Yes Status: Acute Code(s): M00.9 - PYOGENIC ARTHRITIS, UNSPECIFIED SNOMED Code(s): 16303579 (2) Sepsis Current Visit: Yes Status: Acute Priority: Medium Code(s): A41.9 - SEPSIS , UNSPECIFIED ORGANISM SNOMED Code(s): 59932447 (3) Poorly controlled type 2 diabetes mellitus with complication Current Visit: Yes Status: Acute Code(s): E11.8 - TYPE 2 DIABETES MELLITUS WITH UNSPECIFIED COMPLICATIONS; E11.65 - TYPE 2 DIABETES MELLITUS WITH HYPERGLYCEMIA SNOMED Code(s): 25405950
[2017-10-19 07:56] LABS: ABG Base Excess 0.8 mmol/L; ABG HCO3 25 mmol/L (21-25); ABG Oxygen Saturation 97.6 % (94-97); ABG PCO2 38 mmHg (35-45); ABG PH 7.43 (7.35-7.45); ABG PO2 100 mmHg (83-108); ABG TCO2 26 mmol/L (19-24)
[2017-10-19] MEDS ORDERED: MORPHINE SULF 5MG/10ML VL ONE ×2 (08:18→17:23)
--- NOTE | 2017-10-19 08:19 | P.PN ---
Subjective Progress Note Date: 10/19/17 Principal diagnosis: This is a 52-year-old male, diabetic with Charcot's joints with previous amputation the right great toe who was admitted with swelling and infection of the left ankle and had left ankle septic arthritis with MSSA bacteremia. He was seen because of acute kidney injury and hypernatremia. Both of them have improved. He remains intubated though fairly edema addressed. He is on 10 mL of water through the NG tube and D5W at 75 mL an hour. He has excellent urine output, 43 75 mL with an intake of 45 69 mL Remains sedated on the vent. Objective - Vital Signs Vital signs: Vital Signs Temp 99.1 F 10/19/17 04:00 Pulse 80 10/19/17 06:00 Resp 20 10/19/17 06:00 BP 142/63 10/18/17 22:00 Pulse Ox 97 10/19/17 06:00 Intake & Output 10/18/17 10/19/17 10/19/17 18:59 06:59 18:59 Intake Total 2860.637 2555.658 Output Total 2625 1575 Balance 235.637 980.658 Weight 162 kg 162.2 kg Intake: IV 900 975 Dextrose 5% in Water 1, 900 975 000 ml @ 75 mls/hr IV . [id number] [facility] Rx#:[id number] Intake, IV Titration 620.637 640.658 Amount Dexmedetomidine 400 mcg 13.23 In Sodium Chloride 0.9% 100 ml @ Per Protocol IV .Q0M [facility] Rx#:[id number] Dexmedetomidine/0.9% NaCl 34.675 (Pmx) 400 mcg In Empty Bag 1 bag @ Per Protocol IV .Q0M [facility] Rx#:[id number] Insulin Regular 100 unit 105.995 78.744 In Sodium Chloride 0.9% 100 ml @ Per Protocol IV .Q0M [facility] Rx#:[id number] Magnesium Sulfate-D5w Pmx 100 1 gm In Dextrose/Water 1 100ml.bag @ 100 mls/hr IVPB Q1H [facility] Rx#: [id number] Propofol 1,000 mg In 166.737 561.914 Empty Bag 1 bag @ Per Protocol IV .Q0M [facility] Rx#: [id number] Propofol 1,000 mg In 200.000 Empty Bag 1 bag @ Titrate IV .Q0M [facility] Rx#: [id number] Tube Feeding 240 340 Other 1100 600 Output: Drainage 200 Left Ankle 200 Urine 2425 1575 Other: Voiding Method Indwelling Catheter Indwelling Catheter # Voids 1 ABP, PAP, CO, CI - Last Documented On examination sedated on the vent. Arterial Blood Pressure 164/53 On examination he is sedated on the vent. Neck is supple no JVP. Lungs are clear to auscultation fair air entry bilaterally Heart sounds are unremarkable no murmur rub gallop Abdomen soft nontender Somewhat obese and distended. Extremity exam was 2+ edema His right great toe has been previously amputated. The left leg has dressings on. Neurologically his obtunded - Labs CBC & Chem 7: 10/19/17 05:30 10/19/17 05:30 Labs: Abnormal Lab Results - Last 24 Hours (Table) 10/18/17 10/18/17 10/18/17 Range/Units 08:12 09:00 11:02 WBC (3.8-10.6) k/uL RBC (4.30-5.90) m/uL Hgb (13.0-17.5) gm/dL Hct (39.0-53.0) % Neutrophils # (Manual) (1.3-7.7) k/uL Eosinophils # (Manual) (0-0.7) k/uL ABG Total CO2 (19-24) mmol/L ABG O2 Saturation (94-97) % BUN (9-20) mg/dL Glucose (74-99) mg/dL POC Glucose (mg/dL) 181 H 168 H 162 H (75-99) mg/dL 10/18/17 10/18/17 10/18/17 Range/Units 11:57 13:22 14:01 WBC (3.8-10.6) k/uL RBC (4.30-5.90) m/uL Hgb (13.0-17.5) gm/dL Hct (39.0-53.0) % Neutrophils # (Manual) (1.3-7.7) k/uL Eosinophils # (Manual) (0-0.7) k/uL ABG Total CO2 (19-24) mmol/L ABG O2 Saturation (94-97) % BUN (9-20) mg/dL Glucose (74-99) mg/dL POC Glucose (mg/dL) 165 H 165 H 151 H (75-99) mg/dL 10/18/17 10/18/17 10/18/17 Range/Units 16:15 18:55 20:01 WBC (3.8-10.6) k/uL RBC (4.30-5.90) m/uL Hgb (13.0-17.5) gm/dL Hct (39.0-53.0) % Neutrophils # (Manual) (1.3-7.7) k/uL Eosinophils # (Manual) (0-0.7) k/uL ABG Total CO2 (19-24) mmol/L ABG O2 Saturation (94-97) % BUN (9-20) mg/dL Glucose (74-99) mg/dL POC Glucose (mg/dL) 165 H 157 H 166 H (75-99) mg/dL 10/18/17 10/18/17 10/19/17 Range/Units 21:01 22:59 00:54 WBC (3.8-10.6) k/uL RBC (4.30-5.90) m/uL Hgb (13.0-17.5) gm/dL Hct (39.0-53.0) % Neutrophils # (Manual) (1.3-7.7) k/uL Eosinophils # (Manual) (0-0.7) k/uL ABG Total CO2 (19-24) mmol/L ABG O2 Saturation (94-97) % BUN (9-20) mg/dL Glucose (74-99) mg/dL POC Glucose (mg/dL) 162 H 150 H 164 H (75-99) mg/dL 10/19/17 10/19/17 10/19/17 Range/Units 03:06 05:25 05:30 WBC (3.8-10.6) k/uL RBC (4.30-5.90) m/uL Hgb (13.0-17.5) gm/dL Hct (39.0-53.0) % Neutrophils # (Manual) (1.3-7.7) k/uL Eosinophils # (Manual) (0-0.7) k/uL ABG Total CO2 (19-24) mmol/L ABG O2 Saturation (94-97) % BUN 24 H (9-20) mg/dL Glucose 162 H (74-99) mg/dL POC Glucose (mg/dL) 159 H 164 H (75-99) mg/dL 10/19/17 10/19/17 10/19/17 Range/Units 05:30 06:42 07:53 WBC 16.5 H (3.8-10.6) k/uL RBC 3.60 L (4.30-5.90) m/uL Hgb 9.8 L (13.0-17.5) gm/dL Hct 31.7 L (39.0-53.0) % Neutrophils # (Manual) 12.50 H (1.3-7.7) k/uL Eosinophils # (Manual) 0.83 H (0-0.7) k/uL ABG Total CO2 26 H (19-24) mmol/L ABG O2 Saturation 97.6 H (94-97) % BUN (9-20) mg/dL Glucose (74-99) mg/dL POC Glucose (mg/dL) 173 H (75-99) mg/dL Microbiology - Last 24 Hours (Table) 10/17/17 05:50 Blood Culture - Preliminary Blood No Growth after 48 hours 10/17/17 04:07 Blood Culture - Preliminary Blood No Growth after 48 hours Assessment and Plan Assessment: Impression 1. Acute kidney injury from sepsis resolved with good urine output and creatinine down to normal. 2. Hyponatremia secondary to reduced free water. Improved and resolved on NGT water and IV D5W. 3 when dependent respiratory failure. 4. Significant edema. 5. Underlying diabetic nephropathy with microalbuminuria 152 mg/g of creatinine. Recommendation. 1. Reduce the NG tube water flushes to 30 mL an hour for keeping the tube feeding intact. 2. Discontinue the IV D5W. 3. Monitor labs on a daily basis. 4. Medium 20 mg IV Lasix 1 dose and see how she responds because of the edema and slightly high blood pressure, in the 150-180 range
[2017-10-19 08:29] LABS: Glucose,Whole Blood 175 mg/dL (75-99)
[2017-10-19] MEDS: CHLORHEXIDINE GLUCONATE 15 ML CUP MUCOUS MEM SCH ×2 (08:38→20:14)
[2017-10-19] MEDS: DEXTROSE 5% IN WATER 1,000 ML IV SCH ×2 (08:38→22:11)
[2017-10-19] MEDS: GABAPENTIN 300 MG CAP PO SCH (08:39)
[2017-10-19] MEDS: METOPROLOL TARTRATE 25 MG TAB PO SCH ×2 (08:40→20:05)
[2017-10-19] MEDS: PANTOPRAZOLE 40 MG/10 ML VIAL IV SCH (08:40)
[2017-10-19] MEDS: PREGABALIN 100 MG CAP PO SCH ×3 (08:42→22:45)
[2017-10-19] MEDS: NON-FORMULARY DRUG (Empagliflozin [Jardiance] 25 MG) PO SCH (08:44)
[2017-10-19] MEDS: FUROSEMIDE 10 MG/ML 2 ML VIAL IV SCH (08:45)
[2017-10-19] MEDS: INSULIN REGULAR 100 UNIT in SODIUM CHLORIDE 0.9% 100 ML IV SCH ×2 (10:46→23:04)
[2017-10-19] MEDS ORDERED: CLEVIDIPINE BUTYRATE 25 MG/50 ML VIAL IV ONE (11:06)
[2017-10-19 11:57] LABS: Glucose,Whole Blood 183 mg/dL (75-99)
[2017-10-19] MEDS: CLEVIDIPINE BUTYRATE 25 MG in EMPTY BAG 1 BAG IV SCH ×8 (12:00→23:14)
--- NOTE | 2017-10-19 12:13 | P.PN ---
Subjective Progress Note Date: 10/19/17 Principal diagnosis: Sepsis and left foot infection with mental status changes Progress note dated 10/19/2017 This is a 52-year-old male with acute hypoxemic respiratory failure secondary to sepsis. He was admitted with a diagnosis of Septic Arthritis Involving the Left Ankle and He Status Post Left Ankle Irrigation and Debridement. He's Postop Day #7. He Wanted Month for Another Irrigation and Debridement, on 10/16 and Is Postop Day #3. Today We Did a Daily Eruption of Sedation. Unfortunately He Did Very Poorly. He Was Not Ready for a Spontaneous Breathing Trial. The patient has a history of acute severe sepsis with positive blood cultures for methicillin sensitive staph aureus, altered mental status acute hypoxemic and hypercapnic respiratory failure with mild ARDS, diabetes mellitus peripheral neuropathy chronic wounds and ulcerations of lower extremities Charcot joints of morbid obesity hypertension hyperlipidemia hypothyroidism acute kidney injury and hypernatremia. I had a long talk with the family today. The understand that by mid next week if the patient does not show improvement, would likely send patient for a tracheostomy and PEG tube. Objective - Vital Signs Vital signs: Vital Signs Temp 98.4 F 10/19/17 08:00 Pulse 75 10/19/17 11:00 Resp 7 L 10/19/17 11:00 BP 144/65 10/19/17 09:00 Pulse Ox 99 10/19/17 11:00 Intake & Output 10/18/17 10/19/17 10/19/17 18:59 06:59 18:59 Intake Total 2860.637 2603.050 450.434 Output Total 2625 1575 1650 Balance 049.586 7268.050 -1199.566 Weight 162 kg 162.2 kg 162.2 kg Intake: IV 900 975 95 Dextrose 5% in Water 1, 900 975 95 000 ml @ 75 mls/hr IV . [id number] [facility] Rx#:[id number] Intake, IV Titration 620.637 688.050 355.434 Amount Dexmedetomidine 400 mcg 13.23 In Sodium Chloride 0.9% 100 ml @ Per Protocol IV .Q0M [facility] Rx#:[id number] Dexmedetomidine/0.9% NaCl 34.675 (Pmx) 400 mcg In Empty Bag 1 bag @ Per Protocol IV .Q0M [facility] Rx#:[id number] Insulin Regular 100 unit 105.995 78.744 13.301 In Sodium Chloride 0.9% 100 ml @ Per Protocol IV .Q0M [facility] Rx#:[id number] Magnesium Sulfate-D5w Pmx 100 1 gm In Dextrose/Water 1 100ml.bag @ 100 mls/hr IVPB Q1H [facility] Rx#: [id number] Magnesium Sulfate-D5w Pmx 200 1 gm In Dextrose/Water 1 100ml.bag @ 100 mls/hr IVPB Q1H [facility] Rx#: [id number] Propofol 1,000 mg In 166.737 609.306 142.133 Empty Bag 1 bag @ Per Protocol IV .Q0M [facility] Rx#: [id number] Propofol 1,000 mg In 200.000 Empty Bag 1 bag @ Titrate IV .Q0M [facility] Rx#: [id number] Tube Feeding 240 340 Other 1100 600 Output: Drainage 200 Left Ankle 200 Urine 2425 1575 1650 Other: Voiding Method Indwelling Catheter Indwelling Catheter Indwelling Catheter # Voids 1 ABP, PAP, CO, CI - Last Documented Arterial Blood Pressure 181/68 - Exam No acute distress, sedated, we will endotracheal tube and NG tube noted HEENT examination is grossly unremarkable. Mucous membranes are moist. Neck supple. Full range of motion. No adenopathy thyromegaly or neck vein distention. Cardiovascular examination reveals regular rhythm rate. S1-S2 normal. No S3 or S4. No discernible murmur noted. Lungs reveal diminished breath sounds. Coarse bilateral rhonchi are noted. Breath sounds are equal bilaterally. No crackles. Abdomen soft bowel sounds are heard. No masses or tenderness. Extremities are intact. Both lower extremities are wrapped in Geoffrey wraps. Also examination cannot be done. Edema is clearly present though.. Skin is without rash or lesion. Neurologic examination could not be performed - Labs CBC & Chem 7: 10/19/17 05:30 10/19/17 05:30 Labs: Abnormal Lab Results - Last 24 Hours (Table) 10/18/17 10/18/17 10/18/17 Range/Units 11:57 13:22 14:01 WBC (3.8-10.6) k/uL RBC (4.30-5.90) m/uL Hgb (13.0-17.5) gm/dL Hct (39.0-53.0) % Neutrophils # (Manual) (1.3-7.7) k/uL Eosinophils # (Manual) (0-0.7) k/uL ABG Total CO2 (19-24) mmol/L ABG O2 Saturation (94-97) % BUN (9-20) mg/dL Glucose (74-99) mg/dL POC Glucose (mg/dL) 165 H 165 H 151 H (75-99) mg/dL 10/18/17 10/18/17 10/18/17 Range/Units 16:15 18:55 20:01 WBC (3.8-10.6) k/uL RBC (4.30-5.90) m/uL Hgb (13.0-17.5) gm/dL Hct (39.0-53.0) % Neutrophils # (Manual) (1.3-7.7) k/uL Eosinophils # (Manual) (0-0.7) k/uL ABG Total CO2 (19-24) mmol/L ABG O2 Saturation (94-97) % BUN (9-20) mg/dL Glucose (74-99) mg/dL POC Glucose (mg/dL) 165 H 157 H 166 H (75-99) mg/dL 10/18/17 10/18/17 10/19/17 Range/Units 21:01 22:59 00:54 WBC (3.8-10.6) k/uL RBC (4.30-5.90) m/uL Hgb (13.0-17.5) gm/dL Hct (39.0-53.0) % Neutrophils # (Manual) (1.3-7.7) k/uL Eosinophils # (Manual) (0-0.7) k/uL ABG Total CO2 (19-24) mmol/L ABG O2 Saturation (94-97) % BUN (9-20) mg/dL Glucose (74-99) mg/dL POC Glucose (mg/dL) 162 H 150 H 164 H (75-99) mg/dL 10/19/17 10/19/17 10/19/17 Range/Units 03:06 05:25 05:30 WBC (3.8-10.6) k/uL RBC (4.30-5.90) m/uL Hgb (13.0-17.5) gm/dL Hct (39.0-53.0) % Neutrophils # (Manual) (1.3-7.7) k/uL Eosinophils # (Manual) (0-0.7) k/uL ABG Total CO2 (19-24) mmol/L ABG O2 Saturation (94-97) % BUN 24 H (9-20) mg/dL Glucose 162 H (74-99) mg/dL POC Glucose (mg/dL) 159 H 164 H (75-99) mg/dL 10/19/17 10/19/17 10/19/17 Range/Units 05:30 06:42 07:53 WBC 16.5 H (3.8-10.6) k/uL RBC 3.60 L (4.30-5.90) m/uL Hgb 9.8 L (13.0-17.5) gm/dL Hct 31.7 L (39.0-53.0) % Neutrophils # (Manual) 12.50 H (1.3-7.7) k/uL Eosinophils # (Manual) 0.83 H (0-0.7) k/uL ABG Total CO2 26 H (19-24) mmol/L ABG O2 Saturation 97.6 H (94-97) % BUN (9-20) mg/dL Glucose (74-99) mg/dL POC Glucose (mg/dL) 173 H (75-99) mg/dL 10/19/17 Range/Units 08:27 WBC (3.8-10.6) k/uL RBC (4.30-5.90) m/uL Hgb (13.0-17.5) gm/dL Hct (39.0-53.0) % Neutrophils # (Manual) (1.3-7.7) k/uL Eosinophils # (Manual) (0-0.7) k/uL ABG Total CO2 (19-24) mmol/L ABG O2 Saturation (94-97) % BUN (9-20) mg/dL Glucose (74-99) mg/dL POC Glucose (mg/dL) 175 H (75-99) mg/dL Microbiology - Last 24 Hours (Table) 10/17/17 05:50 Blood Culture - Preliminary Blood No Growth after 48 hours 10/17/17 04:07 Blood Culture - Preliminary Blood No Growth after 48 hours Assessment and Plan Assessment: Assessment Acute septic arthritis of the left ankle, status post left ankle irrigation with debridement, postoperative day #7 and subsequent irrigation did the debridement, postop day #3 Acute hypoxemic respiratory failure requiring intubation and mechanical ventilation with failure to wean from mechanical ventilation despite daily interruption of sedation and spontaneous breathing trial Acute severe sepsis with positive blood cultures for methicillin sensitive Staphylococcus Mental status changes, set secondary to sepsis encephalopathy Mild ARDS with a PF ratio of 263 Diabetes mellitus with poor sugar control Severe peripheral neuropathy History of chronic wounds and ulcerations of the lower extremities with cellulitis Charcot joints Morbid obesity Hypertension Hyperlipidemia Hypothyroidism Acute kidney injury Hypernatremia Plan: Plan dated 10/19/2017 The patient did have a daily eruption of sedation and a spontaneous breathing trial. His mental status was poor. His heart rate went up quite high with increased respiratory rate and blood pressure. The patient's mental status was poor as I mention that he was not ready for extubation. I did have a long talk with the family. They do understand that the patient may end up requiring a tracheostomy and PEG tube. He'll continue on antibiotics. No additional recommendations are made. Prognosis is poor. We will use Cleviprex for blood pressure control. We will discontinue all the other medications that were being used for blood pressure. She can titrate off of Plavix better. We sedate the patient. We will use a small amount of narcotic. Additional sedation. We'll place the patient back on the mechanical ventilator. We'll resume nutrition. Additional recommendations and suggestions are forthcoming. Time with Patient: Greater than 30
--- NOTE | 2017-10-19 12:32 | P.PN ---
Subjective 52-year-old admitted to ICU secondary to sepsis leading to acute respiratory distress syndrome patient remains intubated on ventilator is being managed by registered nurse float pool patient underwent irrigation and the bride meant of the left ankle twice during this hospitalization. Patient has MSSA in the joint and patient is presently on ceftezole and for that reason. Patient is intubated sedated and patient is on Precedex with anticipation of extubation tomorrow. Objective - Vital Signs Vital signs: Vital Signs Temp 98.4 F 10/19/17 08:00 Pulse 75 10/19/17 11:00 Resp 7 L 10/19/17 11:00 BP 144/65 10/19/17 09:00 Pulse Ox 99 10/19/17 11:00 Intake & Output 10/18/17 10/19/17 10/19/17 18:59 06:59 18:59 Intake Total 2860.637 2603.050 450.434 Output Total 2625 1575 1650 Balance 241.135 0752.050 -1199.566 Weight 162 kg 162.2 kg 162.2 kg Intake: IV 900 975 95 Dextrose 5% in Water 1, 900 975 95 000 ml @ 75 mls/hr IV . [id number] [facility] Rx#:[id number] Intake, IV Titration 620.637 688.050 355.434 Amount Dexmedetomidine 400 mcg 13.23 In Sodium Chloride 0.9% 100 ml @ Per Protocol IV .Q0M [facility] Rx#:[id number] Dexmedetomidine/0.9% NaCl 34.675 (Pmx) 400 mcg In Empty Bag 1 bag @ Per Protocol IV .Q0M [facility] Rx#:[id number] Insulin Regular 100 unit 105.995 78.744 13.301 In Sodium Chloride 0.9% 100 ml @ Per Protocol IV .Q0M [facility] Rx#:[id number] Magnesium Sulfate-D5w Pmx 100 1 gm In Dextrose/Water 1 100ml.bag @ 100 mls/hr IVPB Q1H [facility] Rx#: [id number] Magnesium Sulfate-D5w Pmx 200 1 gm In Dextrose/Water 1 100ml.bag @ 100 mls/hr IVPB Q1H [facility] Rx#: [id number] Propofol 1,000 mg In 166.737 609.306 142.133 Empty Bag 1 bag @ Per Protocol IV .Q0M [facility] Rx#: [id number] Propofol 1,000 mg In 200.000 Empty Bag 1 bag @ Titrate IV .Q0M [facility] Rx#: [id number] Tube Feeding 240 340 Other 1100 600 Output: Drainage 200 Left Ankle 200 Urine 2425 1575 1650 Other: Voiding Method Indwelling Catheter Indwelling Catheter Indwelling Catheter # Voids 1 ABP, PAP, CO, CI - Last Documented Arterial Blood Pressure 181/68 - Exam PHYSICAL EXAMINATION: GENERAL: Patient is intubated sedated, morbidly obese NG tube in place please refer to registered nurse float pool dictation for further details of went settings, sedation score. HEENT: Pupils are round and equally reacting to light. EOMI. No scleral icterus. No conjunctival pallor. Normocephalic, atraumatic. No pharyngeal erythema. No thyromegaly. CARDIOVASCULAR: S1 and S2 present. No murmurs, rubs, or gallops. PULMONARY: Chest is clear to auscultation, no wheezing or crackles. ABDOMEN: Soft, nontender, nondistended, normoactive bowel sounds. No palpable organomegaly. MUSCULOSKELETAL: Patient left leg is wrapped in Geoffrey bandages EXTREMITIES: No cyanosis, clubbing, or pedal edema. NEUROLOGICAL: Unable to assess due to the above-mentioned reasons SKIN: No rashes. - Labs CBC & Chem 7: 10/19/17 05:30 10/19/17 05:30 Labs: Abnormal Lab Results - Last 24 Hours (Table) 10/18/17 10/18/17 10/18/17 Range/Units 13:22 14:01 16:15 WBC (3.8-10.6) k/uL RBC (4.30-5.90) m/uL Hgb (13.0-17.5) gm/dL Hct (39.0-53.0) % Neutrophils # (Manual) (1.3-7.7) k/uL Eosinophils # (Manual) (0-0.7) k/uL ABG Total CO2 (19-24) mmol/L ABG O2 Saturation (94-97) % BUN (9-20) mg/dL Glucose (74-99) mg/dL POC Glucose (mg/dL) 165 H 151 H 165 H (75-99) mg/dL 10/18/17 10/18/17 10/18/17 Range/Units 18:55 20:01 21:01 WBC (3.8-10.6) k/uL RBC (4.30-5.90) m/uL Hgb (13.0-17.5) gm/dL Hct (39.0-53.0) % Neutrophils # (Manual) (1.3-7.7) k/uL Eosinophils # (Manual) (0-0.7) k/uL ABG Total CO2 (19-24) mmol/L ABG O2 Saturation (94-97) % BUN (9-20) mg/dL Glucose (74-99) mg/dL POC Glucose (mg/dL) 157 H 166 H 162 H (75-99) mg/dL 10/18/17 10/19/17 10/19/17 Range/Units 22:59 00:54 03:06 WBC (3.8-10.6) k/uL RBC (4.30-5.90) m/uL Hgb (13.0-17.5) gm/dL Hct (39.0-53.0) % Neutrophils # (Manual) (1.3-7.7) k/uL Eosinophils # (Manual) (0-0.7) k/uL ABG Total CO2 (19-24) mmol/L ABG O2 Saturation (94-97) % BUN (9-20) mg/dL Glucose (74-99) mg/dL POC Glucose (mg/dL) 150 H 164 H 159 H (75-99) mg/dL 10/19/17 10/19/17 10/19/17 Range/Units 05:25 05:30 05:30 WBC 16.5 H (3.8-10.6) k/uL RBC 3.60 L (4.30-5.90) m/uL Hgb 9.8 L (13.0-17.5) gm/dL Hct 31.7 L (39.0-53.0) % Neutrophils # (Manual) 12.50 H (1.3-7.7) k/uL Eosinophils # (Manual) 0.83 H (0-0.7) k/uL ABG Total CO2 (19-24) mmol/L ABG O2 Saturation (94-97) % BUN 24 H (9-20) mg/dL Glucose 162 H (74-99) mg/dL POC Glucose (mg/dL) 164 H (75-99) mg/dL 10/19/17 10/19/17 10/19/17 Range/Units 06:42 07:53 08:27 WBC (3.8-10.6) k/uL RBC (4.30-5.90) m/uL Hgb (13.0-17.5) gm/dL Hct (39.0-53.0) % Neutrophils # (Manual) (1.3-7.7) k/uL Eosinophils # (Manual) (0-0.7) k/uL ABG Total CO2 26 H (19-24) mmol/L ABG O2 Saturation 97.6 H (94-97) % BUN (9-20) mg/dL Glucose (74-99) mg/dL POC Glucose (mg/dL) 173 H 175 H (75-99) mg/dL 10/19/17 Range/Units 11:55 WBC (3.8-10.6) k/uL RBC (4.30-5.90) m/uL Hgb (13.0-17.5) gm/dL Hct (39.0-53.0) % Neutrophils # (Manual) (1.3-7.7) k/uL Eosinophils # (Manual) (0-0.7) k/uL ABG Total CO2 (19-24) mmol/L ABG O2 Saturation (94-97) % BUN (9-20) mg/dL Glucose (74-99) mg/dL POC Glucose (mg/dL) 183 H (75-99) mg/dL Microbiology - Last 24 Hours (Table) 10/17/17 05:50 Blood Culture - Preliminary Blood No Growth after 48 hours 10/17/17 04:07 Blood Culture - Preliminary Blood No Growth after 48 hours Assessment and Plan Plan: Acute septic arthritis of the left ankle, status post left ankle irrigation with debridement, twice during this hospitalization and patient has MSSA and patient is on ceftezolin. Acute hypoxemic respiratory failure requiring intubation and mechanical ventilation with failure to wean from mechanical ventilation, possibility of ARDS Acute severe sepsis with positive blood cultures for methicillin sensitive Staphylococcus Mental status changes, set secondary to sepsis encephalopath Diabetes mellitus: Per can you present regimen titrate as necessary Severe peripheral neuropathy History of chronic wounds and ulcerations of the lower extremities with cellulitis Charcot joints Morbid obesity Hypertension Hyperlipidemia Hypothyroidism Acute kidney injury
[2017-10-19 12:35] LABS: Glucose,Whole Blood 174 mg/dL (75-99)
[2017-10-19 14:24] LABS: Glucose,Whole Blood 172 mg/dL (75-99)
[2017-10-19] MEDS: IPRATROPIUM-ALBUTEROL 3 ML NEB INHALATION SCH ×3 (15:27→23:45)
[2017-10-19 16:45] LABS: Glucose,Whole Blood 141 mg/dL (75-99)
[2017-10-19 17:25] LABS: Glucose,Whole Blood 148 mg/dL (75-99)
[2017-10-19] MEDS ORDERED: METOPROLOL TARTRATE 5 MG/5 ML VIAL IVP PRN (19:19)
[2017-10-19] MEDS: ATORVASTATIN 40 MG TAB PO SCH (20:05)
[2017-10-19 21:01] LABS: Glucose,Whole Blood 146 mg/dL (75-99)
[2017-10-19 22:53] LABS: Glucose,Whole Blood 176 mg/dL (75-99)
[2017-10-20] MEDS: METOCLOPRAMIDE 5 MG/ML 2 ML VIAL IVP SCH ×5 (00:10→23:26)
[2017-10-20] MEDS: CLEVIDIPINE BUTYRATE 25 MG in EMPTY BAG 1 BAG IV SCH ×17 (00:22→23:44)
[2017-10-20 00:52] LABS: Glucose,Whole Blood 188 mg/dL (75-99)
[2017-10-20] MEDS: PROPOFOL 1,000 MG in EMPTY BAG 1 BAG IV SCH ×14 (01:07→23:48)
[2017-10-20] MEDS: MORPHINE SULFATE 4 MG/0.8 ML SYRINGE (INJ) IVP PRN ×4 (02:51→14:25)
[2017-10-20 02:58] LABS: Glucose,Whole Blood 164 mg/dL (75-99)
[2017-10-20] MEDS: IPRATROPIUM-ALBUTEROL 3 ML NEB INHALATION SCH ×6 (03:32→23:04)
[2017-10-20 03:57] LABS: ABG Base Excess 1.2 mmol/L; ABG HCO3 25 mmol/L (21-25); ABG Oxygen Saturation 95.6 % (94-97); ABG PCO2 38 mmHg (35-45); ABG PH 7.44 (7.35-7.45); ABG PO2 74 mmHg (83-108); ABG TCO2 27 mmol/L (19-24)
[2017-10-20 05:01] LABS: Glucose,Whole Blood 188 mg/dL (75-99)
[2017-10-20 05:10] LABS: HCT 31.7 % (39.0-53.0); HGB 10.4 gm/dL (13.0-17.5); MCH 28.9 pg (25.0-35.0); MCHC 32.7 g/dL (31.0-37.0); MCV 88.3 fL (80.0-100.0); Mean Platelet Volume 7.8; Platelet Count 463 k/uL (150-450); RDW 14.2 % (11.5-15.5); WBC 17.5 k/uL (3.8-10.6)
[2017-10-20 05:18] LABS: Anion Gap 11 mmol/L; Blood Urea Nitrogen 24 mg/dL (9-20); Calcium 8.7 mg/dL (8.4-10.2); Carbon Dioxide 23 mmol/L (22-30); Chloride 105 mmol/L (98-107); Glucose 187 mg/dL (74-99); Phosphorus 4.3 mg/dL (2.5-4.5); Potassium 3.8 mmol/L (3.5-5.1); Sodium 139 mmol/L (137-145)
[2017-10-20 05:39] LABS: Band Neutrophils % 8 %; Basophils # (M) 0.18 k/uL (0-0.2); Eosinophils # (M) 0.53 k/uL (0-0.7); Lymphocytes # (M) 1.05 k/uL (1.0-4.8); Metamyelocytes % 4 %; Monocytes # (M) 0.18 k/uL (0-1.0); Myelocytes # (M) 0.18 k/uL (0); Myelocytes % 1 %; Neutrophils % (M) 76 %; Nucleated Red Blood Cells 0 /100 WBC (0-0); Total Cells Counted 100
[2017-10-20 05:40] LABS: Toxic Granulation Present
[2017-10-20] MEDS: LEVOTHYROXINE 75 MCG TAB PO SCH (06:42)
[2017-10-20 06:51] LABS: Glucose,Whole Blood 196 mg/dL (75-99)
--- NOTE | 2017-10-20 06:53 | XR ---
EXAMINATION TYPE: XR chest 1V portable DATE OF EXAM: 10/20/2017 HISTORY: Tube placement. REFERENCE: Previous study dated 10/19/2017. FINDINGS: The patient is ET tube, NG tube and left internal jugular catheter remain in place, unchang ed in appearance. The heart is mildly enlarged. There is bibasilar airspace disease, worse on the left than the right. There are small, bilateral effusions. The overall appearance of the chest has not changed significant ly. IMPRESSION: NO SIGNIFICANT INTERVAL CHANGE IN THE APPEARANCE OF THE CHEST.
[2017-10-20] MEDS ORDERED: POTASSIUM BICARBONATE/CIT AC 20 MEQ TABLET.EFF NG-TUBE SCH (07:00)
[2017-10-20] MEDS: HEPARIN SODIUM,PORCINE 5,000 UNIT/ML 1 ML VIAL SQ SCH ×3 (07:51→23:22)
[2017-10-20] MEDS: CHLORHEXIDINE GLUCONATE 15 ML CUP MUCOUS MEM SCH ×2 (07:51→21:09)
[2017-10-20] MEDS: GABAPENTIN 300 MG CAP PO SCH (07:52)
[2017-10-20] MEDS: METOPROLOL TARTRATE 25 MG TAB PO SCH ×2 (07:52→21:09)
[2017-10-20] MEDS: PANTOPRAZOLE 40 MG/10 ML VIAL IV SCH (07:52)
[2017-10-20] MEDS: NON-FORMULARY DRUG (Empagliflozin [Jardiance] 25 MG) PO SCH (08:00)
[2017-10-20] MEDS: FUROSEMIDE 10 MG/ML 2 ML VIAL IV SCH (08:00)
[2017-10-20] MEDS: PREGABALIN 100 MG CAP PO SCH ×3 (08:01→21:09)
[2017-10-20] MEDS: ceFAZolin IN SWFI 2 GM/20 ML SYRINGE IVP SCH ×3 (08:07→23:22)
[2017-10-20 08:20] LABS: Glucose,Whole Blood 218 mg/dL (75-99)
--- NOTE | 2017-10-20 08:48 | P.PN ---
Subjective Progress Note Date: 10/20/17 Principal diagnosis: Sepsis and left foot infection with mental status changes Progress note dated 10/19/2017 This is a 52-year-old male with acute hypoxemic respiratory failure secondary to sepsis. He was admitted with a diagnosis of Septic Arthritis Involving the Left Ankle and He Status Post Left Ankle Irrigation and Debridement. He's Postop Day #7. He Wanted Month for Another Irrigation and Debridement, on 10/16 and Is Postop Day #3. Today We Did a Daily Eruption of Sedation. Unfortunately He Did Very Poorly. He Was Not Ready for a Spontaneous Breathing Trial. The patient has a history of acute severe sepsis with positive blood cultures for methicillin sensitive staph aureus, altered mental status acute hypoxemic and hypercapnic respiratory failure with mild ARDS, diabetes mellitus peripheral neuropathy chronic wounds and ulcerations of lower extremities Charcot joints of morbid obesity hypertension hyperlipidemia hypothyroidism acute kidney injury and hypernatremia. I had a long talk with the family today. The understand that by mid next week if the patient does not show improvement, would likely send patient for a tracheostomy and PEG tube. Progress note dated 10/20/2017 A 52-year-old male with a history of acute hypoxemic respiratory failure secondary to sepsis. The patient was admitted with a diagnosis of septic arthritis involving the left ankle and he is status post left ankle irrigation and debridement, postop day #8. He also had an irrigation and debridement a second time and for that when he is postop day #4. The patient had a daily eruption of sedation yesterday and unfortunately did very poorly and again today he had daily eruption of sedation and again did very poorly. His respiratory rate was quite high. Heart rate was very high. The patient went very high. He was not responsive. The patient does not follow simple commands. He may eventually need a tracheostomy and PEG tube placement. I did have a long discussion with his yesterday. In addition, the patient is positive blood culture for methicillin sensitive staph aureus mental status changes acute hypoxemic and hypercapnic respiratory failure mild ARDS based on a PaO2/FiO2 ratio, diabetes peripheral neuropathy chronic wounds and ulcerations of lower extremities Charcot joints morbid obesity hypertension hyperlipidemia hypothyroidism acute kidney injury and hypernatremia. I did mention tracheostomy and PEG tube yesterday with the . Again, the patient has shown no significant improvement over the last 48 hours. Chest x-ray is unchanged. Microbiology is reviewed. White count 17.5, hemoglobin 10.4 platelet count normal. Arterial blood gases show a PaO2 of 74 a PaCO2 of 38 and pH is 7.44. Sodium is 139 potassium 3.8 chloride is 105 CO2 23 BUN and creatinine 24 and 0.78 respectively. The patient's vent settings are the volume assist control mode, rate of 26, tidal volume 500, FiO2 50% and PEEP of 8. The patient's currently on propofol at 50 mics per kilogram per minute, Cleviprex at 21 mg per hour and a D5W IV at KVO. The patient is receiving vital high protein at 20 with a goal of 20. Objective - Vital Signs Vital signs: Vital Signs Temp 100.0 F H 10/20/17 04:00 Pulse 104 H 10/20/17 07:32 Resp 30 H 10/20/17 07:00 BP 168/69 10/20/17 07:00 Pulse Ox 96 10/20/17 07:00 Intake & Output 10/19/17 10/20/17 10/20/17 18:59 06:59 18:59 Intake Total 440.775 6003.625 209.927 Output Total 2835 1490 145 Balance -1987.283 146.625 64.927 Weight 162.2 kg 161.5 kg Intake: IV 165 120 10 0.9 NS 70 120 10 Dextrose 5% in Water 1, 95 000 ml @ 75 mls/hr IV . [id number] [facility] Rx#:[id number] Intake, IV Titration 244.052 3071.625 159.927 Amount Clevidipine Butyrate 25 111.467 439.567 50 mg In Empty Bag 1 bag @ 1 MG/HR 2 mls/hr IV .Q24H [facility] Rx#:[id number] Insulin Regular 100 unit 48.145 125.988 12.727 In Sodium Chloride 0.9% 100 ml @ Per Protocol IV .Q0M [facility] Rx#:[id number] Magnesium Sulfate-D5w Pmx 200 1 gm In Dextrose/Water 1 100ml.bag @ 100 mls/hr IVPB Q1H [facility] Rx#: [id number] Propofol 1,000 mg In 243.105 581.07 97.2 Empty Bag 1 bag @ Per Protocol IV .Q0M [facility] Rx#: [id number] Tube Feeding 80 280 40 Other 90 Output: Urine 2835 1490 145 Other: Voiding Method Indwelling Catheter Indwelling Catheter ABP, PAP, CO, CI - Last Documented Arterial Blood Pressure 171/61 - Exam No acute distress, sedated, we will endotracheal tube and NG tube noted HEENT examination is grossly unremarkable. Mucous membranes are moist. Neck supple. Full range of motion. No adenopathy thyromegaly or neck vein distention. Cardiovascular examination reveals regular rhythm rate. S1-S2 normal. No S3 or S4. No discernible murmur noted. Lungs reveal diminished breath sounds. Coarse bilateral rhonchi are noted. Breath sounds are equal bilaterally. No crackles. Abdomen soft bowel sounds are heard. No masses or tenderness. Extremities are intact. Both lower extremities are wrapped in Geoffrey wraps. Also examination cannot be done. Edema is clearly present though.. Skin is without rash or lesion. Neurologic examination could not be performed - Labs CBC & Chem 7: 10/20/17 05:00 10/20/17 05:00 Labs: Abnormal Lab Results - Last 24 Hours (Table) 10/19/17 10/19/17 10/19/17 Range/Units 11:55 12:33 14:22 WBC (3.8-10.6) k/uL RBC (4.30-5.90) m/uL Hgb (13.0-17.5) gm/dL Hct (39.0-53.0) % Plt Count (150-450) k/uL Neutrophils # (Manual) (1.3-7.7) k/uL Metamyelocytes # (Man) (0) k/uL Myelocytes # (Manual) (0) k/uL ABG pO2 (83-108) mmHg ABG Total CO2 (19-24) mmol/L BUN (9-20) mg/dL Glucose (74-99) mg/dL POC Glucose (mg/dL) 183 H 174 H 172 H (75-99) mg/dL 10/19/17 10/19/17 10/19/17 Range/Units 16:43 17:24 21:00 WBC (3.8-10.6) k/uL RBC (4.30-5.90) m/uL Hgb (13.0-17.5) gm/dL Hct (39.0-53.0) % Plt Count (150-450) k/uL Neutrophils # (Manual) (1.3-7.7) k/uL Metamyelocytes # (Man) (0) k/uL Myelocytes # (Manual) (0) k/uL ABG pO2 (83-108) mmHg ABG Total CO2 (19-24) mmol/L BUN (9-20) mg/dL Glucose (74-99) mg/dL POC Glucose (mg/dL) 141 H 148 H 146 H (75-99) mg/dL 10/19/17 10/20/17 10/20/17 Range/Units 22:51 00:49 02:56 WBC (3.8-10.6) k/uL RBC (4.30-5.90) m/uL Hgb (13.0-17.5) gm/dL Hct (39.0-53.0) % Plt Count (150-450) k/uL Neutrophils # (Manual) (1.3-7.7) k/uL Metamyelocytes # (Man) (0) k/uL Myelocytes # (Manual) (0) k/uL ABG pO2 (83-108) mmHg ABG Total CO2 (19-24) mmol/L BUN (9-20) mg/dL Glucose (74-99) mg/dL POC Glucose (mg/dL) 176 H 188 H 164 H (75-99) mg/dL 10/20/17 10/20/17 10/20/17 Range/Units 03:53 04:58 05:00 WBC 17.5 H (3.8-10.6) k/uL RBC 3.60 L (4.30-5.90) m/uL Hgb 10.4 L (13.0-17.5) gm/dL Hct 31.7 L (39.0-53.0) % Plt Count 463 H (150-450) k/uL Neutrophils # (Manual) 14.70 H (1.3-7.7) k/uL Metamyelocytes # (Man) 0.70 H (0) k/uL Myelocytes # (Manual) 0.18 H (0) k/uL ABG pO2 74 L (83-108) mmHg ABG Total CO2 27 H (19-24) mmol/L BUN (9-20) mg/dL Glucose (74-99) mg/dL POC Glucose (mg/dL) 188 H (75-99) mg/dL 10/20/17 10/20/17 10/20/17 Range/Units 05:00 06:50 08:18 WBC (3.8-10.6) k/uL RBC (4.30-5.90) m/uL Hgb (13.0-17.5) gm/dL Hct (39.0-53.0) % Plt Count (150-450) k/uL Neutrophils # (Manual) (1.3-7.7) k/uL Metamyelocytes # (Man) (0) k/uL Myelocytes # (Manual) (0) k/uL ABG pO2 (83-108) mmHg ABG Total CO2 (19-24) mmol/L BUN 24 H (9-20) mg/dL Glucose 187 H (74-99) mg/dL POC Glucose (mg/dL) 196 H 218 H (75-99) mg/dL Microbiology - Last 24 Hours (Table) 10/17/17 05:50 Blood Culture - Preliminary Blood No Growth after 72 hours 10/17/17 04:07 Blood Culture - Preliminary Blood No Growth after 72 hours Assessment and Plan Assessment: Assessment Acute septic arthritis of the left ankle, status post left ankle irrigation with debridement, postoperative day #8 and subsequent irrigation did the debridement, postop day #4 Acute hypoxemic respiratory failure requiring intubation and mechanical ventilation with failure to wean from mechanical ventilation despite daily interruption of sedation and spontaneous breathing trial Acute severe sepsis with positive blood cultures for methicillin sensitive Staphylococcus Mental status changes, set secondary to sepsis encephalopathy Mild ARDS with a PF ratio of 263 Diabetes mellitus with poor sugar control Severe peripheral neuropathy History of chronic wounds and ulcerations of the lower extremities with cellulitis Charcot joints Morbid obesity Hypertension Hyperlipidemia Hypothyroidism Acute kidney injury Hypernatremia Plan: Plan dated 10/19/2017 The patient did have a daily eruption of sedation and a spontaneous breathing trial. His mental status was poor. His heart rate went up quite high with increased respiratory rate and blood pressure. The patient's mental status was poor as I mention that he was not ready for extubation. I did have a long talk with the family. They do understand that the patient may end up requiring a tracheostomy and PEG tube. He'll continue on antibiotics. No additional recommendations are made. Prognosis is poor. We will use Cleviprex for blood pressure control. We will discontinue all the other medications that were being used for blood pressure. She can titrate off of Plavix better. We sedate the patient. We will use a small amount of narcotic. Additional sedation. We'll place the patient back on the mechanical ventilator. We'll resume nutrition. Additional recommendations and suggestions are forthcoming. Plan dated 10/20/2017 Again the patient had a daily eruption of sedation and did very poorly. He was not a candidate for spontaneous breathing trial. He remains on Cleviprex at a relatively higher dose for blood pressure control and propofol. The patient is getting nutrition. I did talk to the yesterday. I let her know that the patient was not doing well and may be headed towards tracheostomy and PEG tube placement. He remains on updrafts every 4 [id number]. Not able to be weaned today. The patient blood pressure 1 of over 200 and his respiratory rate went up over 40 on holding of sedation. Chest x-ray stable. No additional recommendations are made. Prognosis is guarded. And he may end up with a trach and PEG. Critical care time 33 minutes Time with Patient: Greater than 30
--- NOTE | 2017-10-20 09:10 | P.PN ---
Subjective Progress Note Date: 10/20/17 Principal diagnosis: This is a 52-year-old male, diabetic with Charcot's joints with previous amputation the right great toe who was admitted with swelling and infection of the left ankle and had left ankle septic arthritis with MSSA bacteremia, he had surgery with debridement. He was seen because of acute kidney injury and hypernatremia. Both of them have improved. He remains intubated though fair edema remains. He was given 1 dose of Lasix yesterday. Because of the edema and high blood pressure. This morning he remains on the vent on 50% FiO2. His off of the NG tube feeding and the D5W 75 mL an hour since yesterday. Urine output remains excellent. Objective - Vital Signs Vital signs: Vital Signs Temp 100.0 F H 10/20/17 04:00 Pulse 104 H 10/20/17 07:32 Resp 30 H 10/20/17 07:00 BP 168/69 10/20/17 07:00 Pulse Ox 96 10/20/17 07:00 Intake & Output 10/19/17 10/20/17 10/20/17 18:59 06:59 18:59 Intake Total 951.440 7460.625 209.927 Output Total 2835 1490 145 Balance -1987.283 146.625 64.927 Weight 162.2 kg 161.5 kg Intake: IV 165 120 10 0.9 NS 70 120 10 Dextrose 5% in Water 1, 95 000 ml @ 75 mls/hr IV . [id number] [facility] Rx#:[id number] Intake, IV Titration 072.339 7065.625 159.927 Amount Clevidipine Butyrate 25 111.467 439.567 50 mg In Empty Bag 1 bag @ 1 MG/HR 2 mls/hr IV .Q24H [facility] Rx#:[id number] Insulin Regular 100 unit 48.145 125.988 12.727 In Sodium Chloride 0.9% 100 ml @ Per Protocol IV .Q0M [facility] Rx#:[id number] Magnesium Sulfate-D5w Pmx 200 1 gm In Dextrose/Water 1 100ml.bag @ 100 mls/hr IVPB Q1H [facility] Rx#: [id number] Propofol 1,000 mg In 243.105 581.07 97.2 Empty Bag 1 bag @ Per Protocol IV .Q0M [facility] Rx#: [id number] Tube Feeding 80 280 40 Other 90 Output: Urine 2835 1490 145 Other: Voiding Method Indwelling Catheter Indwelling Catheter ABP, PAP, CO, CI - Last Documented Arterial Blood Pressure 171/61 On exam he was on vent 50% FiO2. Sedated obtunded. A chin exam no JVP neck is supple no facial asymmetry Lungs are clear to auscultation fair air entry bilaterally Heart sounds are unremarkable no murmur rub gallop is in normal sinus rhythm Abdomen soft nontender. But patient being sedated is scheduled to be certain Extremity exam was 2+ edema. Neurologically obtunded - Labs CBC & Chem 7: 10/20/17 05:00 10/20/17 05:00 Labs: Abnormal Lab Results - Last 24 Hours (Table) 10/19/17 10/19/17 10/19/17 Range/Units 11:55 12:33 14:22 WBC (3.8-10.6) k/uL RBC (4.30-5.90) m/uL Hgb (13.0-17.5) gm/dL Hct (39.0-53.0) % Plt Count (150-450) k/uL Neutrophils # (Manual) (1.3-7.7) k/uL Metamyelocytes # (Man) (0) k/uL Myelocytes # (Manual) (0) k/uL ABG pO2 (83-108) mmHg ABG Total CO2 (19-24) mmol/L BUN (9-20) mg/dL Glucose (74-99) mg/dL POC Glucose (mg/dL) 183 H 174 H 172 H (75-99) mg/dL 10/19/17 10/19/17 10/19/17 Range/Units 16:43 17:24 21:00 WBC (3.8-10.6) k/uL RBC (4.30-5.90) m/uL Hgb (13.0-17.5) gm/dL Hct (39.0-53.0) % Plt Count (150-450) k/uL Neutrophils # (Manual) (1.3-7.7) k/uL Metamyelocytes # (Man) (0) k/uL Myelocytes # (Manual) (0) k/uL ABG pO2 (83-108) mmHg ABG Total CO2 (19-24) mmol/L BUN (9-20) mg/dL Glucose (74-99) mg/dL POC Glucose (mg/dL) 141 H 148 H 146 H (75-99) mg/dL 10/19/17 10/20/17 10/20/17 Range/Units 22:51 00:49 02:56 WBC (3.8-10.6) k/uL RBC (4.30-5.90) m/uL Hgb (13.0-17.5) gm/dL Hct (39.0-53.0) % Plt Count (150-450) k/uL Neutrophils # (Manual) (1.3-7.7) k/uL Metamyelocytes # (Man) (0) k/uL Myelocytes # (Manual) (0) k/uL ABG pO2 (83-108) mmHg ABG Total CO2 (19-24) mmol/L BUN (9-20) mg/dL Glucose (74-99) mg/dL POC Glucose (mg/dL) 176 H 188 H 164 H (75-99) mg/dL 10/20/17 10/20/17 10/20/17 Range/Units 03:53 04:58 05:00 WBC 17.5 H (3.8-10.6) k/uL RBC 3.60 L (4.30-5.90) m/uL Hgb 10.4 L (13.0-17.5) gm/dL Hct 31.7 L (39.0-53.0) % Plt Count 463 H (150-450) k/uL Neutrophils # (Manual) 14.70 H (1.3-7.7) k/uL Metamyelocytes # (Man) 0.70 H (0) k/uL Myelocytes # (Manual) 0.18 H (0) k/uL ABG pO2 74 L (83-108) mmHg ABG Total CO2 27 H (19-24) mmol/L BUN (9-20) mg/dL Glucose (74-99) mg/dL POC Glucose (mg/dL) 188 H (75-99) mg/dL 10/20/17 10/20/17 10/20/17 Range/Units 05:00 06:50 08:18 WBC (3.8-10.6) k/uL RBC (4.30-5.90) m/uL Hgb (13.0-17.5) gm/dL Hct (39.0-53.0) % Plt Count (150-450) k/uL Neutrophils # (Manual) (1.3-7.7) k/uL Metamyelocytes # (Man) (0) k/uL Myelocytes # (Manual) (0) k/uL ABG pO2 (83-108) mmHg ABG Total CO2 (19-24) mmol/L BUN 24 H (9-20) mg/dL Glucose 187 H (74-99) mg/dL POC Glucose (mg/dL) 196 H 218 H (75-99) mg/dL Microbiology - Last 24 Hours (Table) 10/17/17 05:50 Blood Culture - Preliminary Blood No Growth after 72 hours 10/17/17 04:07 Blood Culture - Preliminary Blood No Growth after 72 hours Assessment and Plan Assessment: Impression 1. Acute kidney injury from sepsis resolved with good urine output and creatinine down to normal. 2. Hyponatremia secondary to reduced free water. Improved and resolved on NGT water and IV D5W, both of them were discontinued yesterday 10/20/19. Sodium and creatinine both remain normal. 3. Ventilator dependent respiratory failure. On 50% FiO2. 4. Significant edema. 5. Underlying diabetic nephropathy with microalbuminuria 152 mg/g of creatinine. Recommendation. 1. Recommend use Lasix 20 mg daily, 2. monitor urine output, edema and blood pressure 3. Monitor labs on a daily basis.
[2017-10-20] MEDS ORDERED: BISACODYL 10 MG SUPP RECTAL STA (09:19)
[2017-10-20 09:55] LABS: Glucose,Whole Blood 241 mg/dL (75-99)
[2017-10-20 10:58] LABS: Glucose,Whole Blood 195 mg/dL (75-99)
--- NOTE | 2017-10-20 11:40 | P.PN ---
Subjective 52-year-old admitted to ICU secondary to sepsis leading to acute respiratory distress syndrome patient remains intubated on ventilator is being managed by milling planer operator patient underwent irrigation and the bride meant of the left ankle twice during this hospitalization. Patient has MSSA in the joint and patient is presently on ceftezole and for that reason. Patient is intubated sedated and patient is on Precedex with anticipation of extubation tomorrow. 10/20/2017 Patient remains intubated patient is on high-dose of IV insulin and requiring large amounts of sedation remains in hypoxic respiratory failure had a low- grade fever today if he continues to have low-grade fevers or has a high-grade fever repeat blood cultures will be obtained Objective - Vital Signs Vital signs: Vital Signs Temp 99.6 F 10/20/17 08:00 Pulse 95 10/20/17 11:23 Resp 23 10/20/17 09:00 BP 159/72 10/20/17 09:00 Pulse Ox 94 L 10/20/17 09:00 Intake & Output 10/19/17 10/20/17 10/20/17 18:59 06:59 18:59 Intake Total 714.233 5800.625 548.368 Output Total 2835 1490 1045 Balance -1987.283 146.625 -496.632 Weight 162.2 kg 161.5 kg Intake: IV 165 120 40 0.9 NS 70 120 40 Dextrose 5% in Water 1, 95 000 ml @ 75 mls/hr IV . [id number] [facility] Rx#:[id number] Intake, IV Titration 450.004 9017.625 388.368 Amount Clevidipine Butyrate 25 111.467 439.567 150 mg In Empty Bag 1 bag @ 1 MG/HR 2 mls/hr IV .Q24H [facility] Rx#:[id number] Insulin Regular 100 unit 48.145 125.988 41.168 In Sodium Chloride 0.9% 100 ml @ Per Protocol IV .Q0M [facility] Rx#:[id number] Magnesium Sulfate-D5w Pmx 200 1 gm In Dextrose/Water 1 100ml.bag @ 100 mls/hr IVPB Q1H [facility] Rx#: [id number] Propofol 1,000 mg In 243.105 581.07 197.2 Empty Bag 1 bag @ Per Protocol IV .Q0M [facility] Rx#: [id number] Tube Feeding 80 280 120 Other 90 Output: Urine 2835 1490 1045 Other: Voiding Method Indwelling Catheter Indwelling Catheter Indwelling Catheter ABP, PAP, CO, CI - Last Documented Arterial Blood Pressure 168/64 - Exam PHYSICAL EXAMINATION: GENERAL: Patient is intubated sedated, morbidly obese NG tube in place please refer to milling planer operator dictation for further details of went settings, sedation score. HEENT: Pupils are round and equally reacting to light. EOMI. No scleral icterus. No conjunctival pallor. Normocephalic, atraumatic. No pharyngeal erythema. No thyromegaly. CARDIOVASCULAR: S1 and S2 present. No murmurs, rubs, or gallops. PULMONARY: Chest is clear to auscultation, no wheezing or crackles. ABDOMEN: Soft, nontender, nondistended, normoactive bowel sounds. No palpable organomegaly. MUSCULOSKELETAL: Patient left leg is wrapped in Geoffrey bandages EXTREMITIES: No cyanosis, clubbing, or pedal edema. NEUROLOGICAL: Unable to assess due to the above-mentioned reasons SKIN: No rashes. - Labs CBC & Chem 7: 10/20/17 05:00 10/20/17 05:00 Labs: Abnormal Lab Results - Last 24 Hours (Table) 10/19/17 10/19/17 10/19/17 Range/Units 11:55 12:33 14:22 WBC (3.8-10.6) k/uL RBC (4.30-5.90) m/uL Hgb (13.0-17.5) gm/dL Hct (39.0-53.0) % Plt Count (150-450) k/uL Neutrophils # (Manual) (1.3-7.7) k/uL Metamyelocytes # (Man) (0) k/uL Myelocytes # (Manual) (0) k/uL ABG pO2 (83-108) mmHg ABG Total CO2 (19-24) mmol/L BUN (9-20) mg/dL Glucose (74-99) mg/dL POC Glucose (mg/dL) 183 H 174 H 172 H (75-99) mg/dL 10/19/17 10/19/17 10/19/17 Range/Units 16:43 17:24 21:00 WBC (3.8-10.6) k/uL RBC (4.30-5.90) m/uL Hgb (13.0-17.5) gm/dL Hct (39.0-53.0) % Plt Count (150-450) k/uL Neutrophils # (Manual) (1.3-7.7) k/uL Metamyelocytes # (Man) (0) k/uL Myelocytes # (Manual) (0) k/uL ABG pO2 (83-108) mmHg ABG Total CO2 (19-24) mmol/L BUN (9-20) mg/dL Glucose (74-99) mg/dL POC Glucose (mg/dL) 141 H 148 H 146 H (75-99) mg/dL 10/19/17 10/20/17 10/20/17 Range/Units 22:51 00:49 02:56 WBC (3.8-10.6) k/uL RBC (4.30-5.90) m/uL Hgb (13.0-17.5) gm/dL Hct (39.0-53.0) % Plt Count (150-450) k/uL Neutrophils # (Manual) (1.3-7.7) k/uL Metamyelocytes # (Man) (0) k/uL Myelocytes # (Manual) (0) k/uL ABG pO2 (83-108) mmHg ABG Total CO2 (19-24) mmol/L BUN (9-20) mg/dL Glucose (74-99) mg/dL POC Glucose (mg/dL) 176 H 188 H 164 H (75-99) mg/dL 10/20/17 10/20/17 10/20/17 Range/Units 03:53 04:58 05:00 WBC 17.5 H (3.8-10.6) k/uL RBC 3.60 L (4.30-5.90) m/uL Hgb 10.4 L (13.0-17.5) gm/dL Hct 31.7 L (39.0-53.0) % Plt Count 463 H (150-450) k/uL Neutrophils # (Manual) 14.70 H (1.3-7.7) k/uL Metamyelocytes # (Man) 0.70 H (0) k/uL Myelocytes # (Manual) 0.18 H (0) k/uL ABG pO2 74 L (83-108) mmHg ABG Total CO2 27 H (19-24) mmol/L BUN (9-20) mg/dL Glucose (74-99) mg/dL POC Glucose (mg/dL) 188 H (75-99) mg/dL 10/20/17 10/20/17 10/20/17 Range/Units 05:00 06:50 08:18 WBC (3.8-10.6) k/uL RBC (4.30-5.90) m/uL Hgb (13.0-17.5) gm/dL Hct (39.0-53.0) % Plt Count (150-450) k/uL Neutrophils # (Manual) (1.3-7.7) k/uL Metamyelocytes # (Man) (0) k/uL Myelocytes # (Manual) (0) k/uL ABG pO2 (83-108) mmHg ABG Total CO2 (19-24) mmol/L BUN 24 H (9-20) mg/dL Glucose 187 H (74-99) mg/dL POC Glucose (mg/dL) 196 H 218 H (75-99) mg/dL 10/20/17 10/20/17 Range/Units 09:52 10:56 WBC (3.8-10.6) k/uL RBC (4.30-5.90) m/uL Hgb (13.0-17.5) gm/dL Hct (39.0-53.0) % Plt Count (150-450) k/uL Neutrophils # (Manual) (1.3-7.7) k/uL Metamyelocytes # (Man) (0) k/uL Myelocytes # (Manual) (0) k/uL ABG pO2 (83-108) mmHg ABG Total CO2 (19-24) mmol/L BUN (9-20) mg/dL Glucose (74-99) mg/dL POC Glucose (mg/dL) 241 H 195 H (75-99) mg/dL Microbiology - Last 24 Hours (Table) 10/17/17 05:50 Blood Culture - Preliminary Blood No Growth after 72 hours 10/17/17 04:07 Blood Culture - Preliminary Blood No Growth after 72 hours Assessment and Plan Plan: Acute septic arthritis of the left ankle, status post left ankle irrigation with debridement, twice during this hospitalization and patient has MSSA and patient is on ceftezolin. Acute hypoxemic respiratory failure requiring intubation and mechanical ventilation with failure to wean from mechanical ventilation, possibility of ARDS Acute severe sepsis with positive blood cultures for methicillin sensitive Staphylococcus Mental status changes, set secondary to sepsis encephalopath Diabetes mellitus: Per can you present regimen titrate as necessary Severe peripheral neuropathy History of chronic wounds and ulcerations of the lower extremities with cellulitis Charcot joints Morbid obesity Hypertension Hyperlipidemia Hypothyroidism Acute kidney injury
[2017-10-20] MEDS: INSULIN REGULAR 100 UNIT in SODIUM CHLORIDE 0.9% 100 ML IV SCH ×2 (12:45→21:10)
[2017-10-20 12:48] LABS: Glucose,Whole Blood 196 mg/dL (75-99)
[2017-10-20] MEDS: DEXTROSE 5% IN WATER 1,000 ML IV SCH (12:49)
[2017-10-20] MEDS ORDERED: CISATRACURIUM 2 MG/ML 5 ML VIAL IV ONE ×2 (14:06→14:08)
[2017-10-20] MEDS: CISATRACURIUM 200 MG in SODIUM CHLORIDE 0.9% 180 ML IV SCH (14:21)
[2017-10-20] MEDS: hydrALAZINE HCL 20 MG/ML 1 ML VIAL IVP PRN (14:25)
[2017-10-20 14:58] LABS: Glucose,Whole Blood 203 mg/dL (75-99)
[2017-10-20] MEDS: LABETALOL 5 MG/ML VIAL MDV IVP PRN ×2 (15:43→17:33)
[2017-10-20] MEDS: ARTIFICIAL TEARS-HYPROMELLOSE DROPS 15 ML BTL BOTH EYES SCH ×3 (16:40→23:22)
[2017-10-20 17:23] LABS: Glucose,Whole Blood 235 mg/dL (75-99)
[2017-10-20 18:10] LABS: Glucose,Whole Blood 234 mg/dL (75-99)
[2017-10-20 20:11] LABS: Glucose,Whole Blood 232 mg/dL (75-99)
[2017-10-20] MEDS: ATORVASTATIN 40 MG TAB PO SCH (21:09)
[2017-10-20 21:57] LABS: Glucose,Whole Blood 224 mg/dL (75-99)
[2017-10-21 00:03] LABS: Glucose,Whole Blood 202 mg/dL (75-99)
[2017-10-21] MEDS: CLEVIDIPINE BUTYRATE 25 MG in EMPTY BAG 1 BAG IV SCH ×7 (01:13→11:25)
[2017-10-21] MEDS: PROPOFOL 1,000 MG in EMPTY BAG 1 BAG IV SCH ×11 (01:14→20:34)
[2017-10-21] MEDS: DEXTROSE 5% IN WATER 1,000 ML IV SCH ×2 (01:15→14:21)
[2017-10-21 01:44] LABS: Glucose,Whole Blood 219 mg/dL (75-99)
[2017-10-21] MEDS: IPRATROPIUM-ALBUTEROL 3 ML NEB INHALATION SCH ×6 (03:07→23:03)
[2017-10-21] MEDS: ARTIFICIAL TEARS-HYPROMELLOSE DROPS 15 ML BTL BOTH EYES SCH ×5 (03:42→21:21)
[2017-10-21 03:48] LABS: Glucose,Whole Blood 207 mg/dL (75-99)
[2017-10-21] MEDS: INSULIN REGULAR 100 UNIT in SODIUM CHLORIDE 0.9% 100 ML IV SCH ×2 (03:49→14:02)
[2017-10-21 05:09] LABS: ABG Base Excess 1.3 mmol/L; ABG HCO3 27 mmol/L (21-25); ABG Oxygen Saturation 93.8 % (94-97); ABG PCO2 53 mmHg (35-45); ABG PH 7.32 (7.35-7.45); ABG PO2 69 mmHg (83-108); ABG TCO2 29 mmol/L (19-24)
[2017-10-21 05:55] LABS: Glucose,Whole Blood 190 mg/dL (75-99)
[2017-10-21] MEDS: METOCLOPRAMIDE 5 MG/ML 2 ML VIAL IVP SCH ×3 (06:01→17:24)
[2017-10-21] MEDS: LEVOTHYROXINE 75 MCG TAB PO SCH (06:03)
[2017-10-21 06:05] LABS: HCT 32.7 % (39.0-53.0); HGB 10.3 gm/dL (13.0-17.5); Hypochromasia Slight; MCH 28.3 pg (25.0-35.0); MCHC 31.4 g/dL (31.0-37.0); MCV 90.1 fL (80.0-100.0); Mean Platelet Volume 7.6; Platelet Count 462 k/uL (150-450); RBC 3.63 m/uL (4.30-5.90); RDW 14.1 % (11.5-15.5); WBC 16.4 k/uL (3.8-10.6)
[2017-10-21 06:15] LABS: Anion Gap 10 mmol/L; Blood Urea Nitrogen 25 mg/dL (9-20); Calcium 9.3 mg/dL (8.4-10.2); Carbon Dioxide 27 mmol/L (22-30); Chloride 103 mmol/L (98-107); Glucose 189 mg/dL (74-99); Magnesium 2.2 mg/dL (1.6-2.3); Phosphorus 5.4 mg/dL (2.5-4.5); Potassium 4.1 mmol/L (3.5-5.1); Sodium 140 mmol/L (137-145)
[2017-10-21] MEDS: LABETALOL 5 MG/ML VIAL MDV IVP PRN ×2 (06:20→17:20)
[2017-10-21 06:46] LABS: Lymphocytes # (M) 1.48 k/uL (1.0-4.8); Monocytes # (M) 0.82 k/uL (0-1.0); Myelocytes # (M) 0.66 k/uL (0); Myelocytes % 4 %; Neutrophils # (M) 13.45 k/uL (1.3-7.7); Neutrophils % (M) 82 %; Nucleated Red Blood Cells 0 /100 WBC (0-0); Total Cells Counted 200
[2017-10-21 06:47] LABS: Polychromasia Present
[2017-10-21 06:49] LABS: Large Platelets Present
[2017-10-21 06:59] LABS: Glucose,Whole Blood 185 mg/dL (75-99)
[2017-10-21 08:14] LABS: Glucose,Whole Blood 172 mg/dL (75-99)
[2017-10-21] MEDS: ceFAZolin IN SWFI 2 GM/20 ML SYRINGE IVP SCH ×2 (08:26→15:11)
[2017-10-21] MEDS: FUROSEMIDE 10 MG/ML 2 ML VIAL IV SCH (08:26)
[2017-10-21] MEDS: CHLORHEXIDINE GLUCONATE 15 ML CUP MUCOUS MEM SCH ×2 (08:26→21:21)
[2017-10-21] MEDS: HEPARIN SODIUM,PORCINE 5,000 UNIT/ML 1 ML VIAL SQ SCH ×2 (08:26→15:09)
[2017-10-21] MEDS: GABAPENTIN 300 MG CAP PO SCH (08:26)
[2017-10-21] MEDS: CISATRACURIUM 200 MG in SODIUM CHLORIDE 0.9% 180 ML IV SCH ×3 (08:27→17:05)
[2017-10-21] MEDS: PANTOPRAZOLE 40 MG/10 ML VIAL IV SCH (08:27)
[2017-10-21] MEDS: METOPROLOL TARTRATE 25 MG TAB PO SCH (08:27)
[2017-10-21] MEDS: MORPHINE SULFATE 4 MG/0.8 ML SYRINGE (INJ) IVP PRN ×2 (08:57→14:28)
--- NOTE | 2017-10-21 09:03 | P.PN ---
Subjective Progress Note Date: 10/21/17 Principal diagnosis: Sepsis and left foot infection with mental status changes Progress note dated 10/19/2017 This is a 52-year-old male with acute hypoxemic respiratory failure secondary to sepsis. He was admitted with a diagnosis of Septic Arthritis Involving the Left Ankle and He Status Post Left Ankle Irrigation and Debridement. He's Postop Day #7. He Wanted Month for Another Irrigation and Debridement, on 10/16 and Is Postop Day #3. Today We Did a Daily Eruption of Sedation. Unfortunately He Did Very Poorly. He Was Not Ready for a Spontaneous Breathing Trial. The patient has a history of acute severe sepsis with positive blood cultures for methicillin sensitive staph aureus, altered mental status acute hypoxemic and hypercapnic respiratory failure with mild ARDS, diabetes mellitus peripheral neuropathy chronic wounds and ulcerations of lower extremities Charcot joints of morbid obesity hypertension hyperlipidemia hypothyroidism acute kidney injury and hypernatremia. I had a long talk with the family today. The understand that by mid next week if the patient does not show improvement, would likely send patient for a tracheostomy and PEG tube. Progress note dated 10/20/2017 A 52-year-old male with a history of acute hypoxemic respiratory failure secondary to sepsis. The patient was admitted with a diagnosis of septic arthritis involving the left ankle and he is status post left ankle irrigation and debridement, postop day #8. He also had an irrigation and debridement a second time and for that when he is postop day #4. The patient had a daily eruption of sedation yesterday and unfortunately did very poorly and again today he had daily eruption of sedation and again did very poorly. His respiratory rate was quite high. Heart rate was very high. The patient went very high. He was not responsive. The patient does not follow simple commands. He may eventually need a tracheostomy and PEG tube placement. I did have a long discussion with his yesterday. In addition, the patient is positive blood culture for methicillin sensitive staph aureus mental status changes acute hypoxemic and hypercapnic respiratory failure mild ARDS based on a PaO2/FiO2 ratio, diabetes peripheral neuropathy chronic wounds and ulcerations of lower extremities Charcot joints morbid obesity hypertension hyperlipidemia hypothyroidism acute kidney injury and hypernatremia. I did mention tracheostomy and PEG tube yesterday with the . Again, the patient has shown no significant improvement over the last 48 hours. Chest x-ray is unchanged. Microbiology is reviewed. White count 17.5, hemoglobin 10.4 platelet count normal. Arterial blood gases show a PaO2 of 74 a PaCO2 of 38 and pH is 7.44. Sodium is 139 potassium 3.8 chloride is 105 CO2 23 BUN and creatinine 24 and 0.78 respectively. The patient's vent settings are the volume assist control mode, rate of 26, tidal volume 500, FiO2 50% and PEEP of 8. The patient's currently on propofol at 50 mics per kilogram per minute, Cleviprex at 21 mg per hour and a D5W IV at KVO. The patient is receiving vital high protein at 20 with a goal of 20. Progress note dated 10/21/2017 52-year-old male with a history of acute hypoxemic respiratory failure secondary to sepsis. The patient was admitted with a diagnosis of septic arthritis involving the left ankle many status post left ankle irrigation and debridement, postop day #9. He also had a second irrigation and he is postop day #5 on that one. Unfortunately, over the weekend, the patient has made no progress in yesterday because of worsening respiratory status, the patient had to be paralyzed. He was given Nimbex 10 mg IV and started on a Nimbex drip. We 'll do [id number] monitoring. Also, yesterday we had issues with his heart rate and blood pressure. We had added some labetalol to his Cleviprex. Finally , the patient's oxygenation worsened suggesting is acute respiratory distress syndrome has worsened. Currently on 70% FiO2 and 12 of PEEP. I did have a long discussion with the on Saturday. I explained that he probably end up with a tracheostomy and PEG tube placed. I will ask the thoracic surgeon about that today. Blood cultures are positive multiple times for methicillin sensitive staph aureus. The patient does have a history of Charcot joints morbid obesity hypertension hyperlipidemia hypothyroidism acute kidney injury and hypernatremia. Currently, the patient's vent settings are the assist control mode rate of 26 tidal volume 500 FiO2 70% PEEP of 12 blood gases show a PaO2 of 69 and a PaCO2 of 53 and a pH 7.32. The patient is on Nimbex at 3 mics per kilogram per minute, propofol 60 mikes per kilogram per minute, Cleviprex at 14 mg an hour, insulin 16 units an hour saline IV at 20 mL an hour and vital high protein and rate of 20 with a goal of 20 mL per hour. Needless to say, the patient's very critically ill. Objective - Vital Signs Vital signs: Vital Signs Temp 99.1 F 10/21/17 08:00 Pulse 94 10/21/17 08:06 Resp 25 H 10/21/17 08:00 BP 140/59 10/21/17 05:30 Pulse Ox 95 10/21/17 08:00 Intake & Output 10/20/17 10/21/17 10/21/17 18:59 06:59 18:59 Intake Total 6945.098 7934.018 395.341 Output Total 2160 1345 300 Balance -572.028 493.018 95.341 Weight 160.1 kg 160.1 kg Intake: IV 120 110 10 0.9 NS 120 110 10 Intake, IV Titration 2028.683 2442.018 345.341 Amount Cisatracurium 200 mg In 175.389 Sodium Chloride 0.9% 180 ml @ 1 MCG/KG/MIN 9.69 mls/hr IV .[id number] [facility] Rx #:[id number] Clevidipine Butyrate 25 384.0 335.733 50 mg In Empty Bag 1 bag @ 1 MG/HR 2 mls/hr IV .Q24H [facility] Rx#:[id number] Insulin Regular 100 unit 94.919 202.655 22.382 In Sodium Chloride 0.9% 100 ml @ Per Protocol IV .Q0M [facility] Rx#:[id number] Propofol 1,000 mg In 649.053 799.63 97.57 Empty Bag 1 bag @ Per Protocol IV .Q0M [facility] Rx#: [id number] Oral 60 Tube Feeding 280 300 40 Other 90 Output: Urine 2160 1345 300 Other: Voiding Method Indwelling Catheter Indwelling Catheter Indwelling Catheter # Voids 1 ABP, PAP, CO, CI - Last Documented Arterial Blood Pressure 148/56 - Exam No acute distress, sedated and paralyzed, with a endotracheal tube and NG tube noted HEENT examination is grossly unremarkable. Mucous membranes are moist. Neck supple. Full range of motion. No adenopathy thyromegaly or neck vein distention. Cardiovascular examination reveals regular rhythm rate. S1-S2 normal. No S3 or S4. No discernible murmur noted. Lungs reveal diminished breath sounds. Coarse bilateral rhonchi are noted. Breath sounds are equal bilaterally. No crackles. Abdomen soft bowel sounds are heard. No masses or tenderness. Extremities are intact. Both lower extremities are wrapped in Geoffrey wraps. Also examination cannot be done. Edema is clearly present though.. Skin is without rash or lesion. Neurologic examination could not be performed - Labs CBC & Chem 7: 10/21/17 06:00 10/21/17 06:00 Labs: Abnormal Lab Results - Last 24 Hours (Table) 10/20/17 10/20/17 10/20/17 Range/Units 09:52 10:56 12:46 WBC (3.8-10.6) k/uL RBC (4.30-5.90) m/uL Hgb (13.0-17.5) gm/dL Hct (39.0-53.0) % Plt Count (150-450) k/uL Neutrophils # (Manual) (1.3-7.7) k/uL Myelocytes # (Manual) (0) k/uL ABG pH (7.35-7.45) ABG pCO2 (35-45) mmHg ABG pO2 (83-108) mmHg ABG HCO3 (21-25) mmol/L ABG Total CO2 (19-24) mmol/L ABG O2 Saturation (94-97) % BUN (9-20) mg/dL Glucose (74-99) mg/dL POC Glucose (mg/dL) 241 H 195 H 196 H (75-99) mg/dL Phosphorus (2.5-4.5) mg/dL 10/20/17 10/20/17 10/20/17 Range/Units 14:56 17:22 18:08 WBC (3.8-10.6) k/uL RBC (4.30-5.90) m/uL Hgb (13.0-17.5) gm/dL Hct (39.0-53.0) % Plt Count (150-450) k/uL Neutrophils # (Manual) (1.3-7.7) k/uL Myelocytes # (Manual) (0) k/uL ABG pH (7.35-7.45) ABG pCO2 (35-45) mmHg ABG pO2 (83-108) mmHg ABG HCO3 (21-25) mmol/L ABG Total CO2 (19-24) mmol/L ABG O2 Saturation (94-97) % BUN (9-20) mg/dL Glucose (74-99) mg/dL POC Glucose (mg/dL) 203 H 235 H 234 H (75-99) mg/dL Phosphorus (2.5-4.5) mg/dL 10/20/17 10/20/17 10/21/17 Range/Units 20:09 21:55 00:00 WBC (3.8-10.6) k/uL RBC (4.30-5.90) m/uL Hgb (13.0-17.5) gm/dL Hct (39.0-53.0) % Plt Count (150-450) k/uL Neutrophils # (Manual) (1.3-7.7) k/uL Myelocytes # (Manual) (0) k/uL ABG pH (7.35-7.45) ABG pCO2 (35-45) mmHg ABG pO2 (83-108) mmHg ABG HCO3 (21-25) mmol/L ABG Total CO2 (19-24) mmol/L ABG O2 Saturation (94-97) % BUN (9-20) mg/dL Glucose (74-99) mg/dL POC Glucose (mg/dL) 232 H 224 H 202 H (75-99) mg/dL Phosphorus (2.5-4.5) mg/dL 10/21/17 10/21/17 10/21/17 Range/Units 01:42 03:46 04:57 WBC (3.8-10.6) k/uL RBC (4.30-5.90) m/uL Hgb (13.0-17.5) gm/dL Hct (39.0-53.0) % Plt Count (150-450) k/uL Neutrophils # (Manual) (1.3-7.7) k/uL Myelocytes # (Manual) (0) k/uL ABG pH 7.32 L (7.35-7.45) ABG pCO2 53 H (35-45) mmHg ABG pO2 69 L (83-108) mmHg ABG HCO3 27 H (21-25) mmol/L ABG Total CO2 29 H (19-24) mmol/L ABG O2 Saturation 93.8 L (94-97) % BUN (9-20) mg/dL Glucose (74-99) mg/dL POC Glucose (mg/dL) 219 H 207 H (75-99) mg/dL Phosphorus (2.5-4.5) mg/dL 10/21/17 10/21/17 10/21/17 Range/Units 05:53 06:00 06:00 WBC 16.4 H (3.8-10.6) k/uL RBC 3.63 L (4.30-5.90) m/uL Hgb 10.3 L (13.0-17.5) gm/dL Hct 32.7 L (39.0-53.0) % Plt Count 462 H (150-450) k/uL Neutrophils # (Manual) 13.45 H (1.3-7.7) k/uL Myelocytes # (Manual) 0.66 H (0) k/uL ABG pH (7.35-7.45) ABG pCO2 (35-45) mmHg ABG pO2 (83-108) mmHg ABG HCO3 (21-25) mmol/L ABG Total CO2 (19-24) mmol/L ABG O2 Saturation (94-97) % BUN 25 H (9-20) mg/dL Glucose 189 H (74-99) mg/dL POC Glucose (mg/dL) 190 H (75-99) mg/dL Phosphorus 5.4 H (2.5-4.5) mg/dL 10/21/17 10/21/17 Range/Units 06:57 08:11 WBC (3.8-10.6) k/uL RBC (4.30-5.90) m/uL Hgb (13.0-17.5) gm/dL Hct (39.0-53.0) % Plt Count (150-450) k/uL Neutrophils # (Manual) (1.3-7.7) k/uL Myelocytes # (Manual) (0) k/uL ABG pH (7.35-7.45) ABG pCO2 (35-45) mmHg ABG pO2 (83-108) mmHg ABG HCO3 (21-25) mmol/L ABG Total CO2 (19-24) mmol/L ABG O2 Saturation (94-97) % BUN (9-20) mg/dL Glucose (74-99) mg/dL POC Glucose (mg/dL) 185 H 172 H (75-99) mg/dL Phosphorus (2.5-4.5) mg/dL Microbiology - Last 24 Hours (Table) 10/17/17 05:50 Blood Culture - Preliminary Blood No Growth after 96 hours 10/17/17 04:07 Blood Culture - Preliminary Blood No Growth after 96 hours Assessment and Plan Assessment: Assessment Acute septic arthritis of the left ankle, status post left ankle irrigation with debridement, postoperative day #9and subsequent irrigation did the debridement, postop day #5 Acute hypoxemic respiratory failure requiring intubation and mechanical ventilation with failure to wean from mechanical ventilation despite daily interruption of sedation and spontaneous breathing trial Failure to wean from mechanical ventilation Acute severe sepsis with positive blood cultures for methicillin sensitive Staphylococcus Mental status changes, set secondary to sepsis encephalopathy ARDS with a PF ratio of 263 Diabetes mellitus with poor sugar control Severe peripheral neuropathy History of chronic wounds and ulcerations of the lower extremities with cellulitis Charcot joints Morbid obesity Hypertension Hyperlipidemia Hypothyroidism Acute kidney injury Hypernatremia Plan: Plan dated 10/19/2017 The patient did have a daily eruption of sedation and a spontaneous breathing trial. His mental status was poor. His heart rate went up quite high with increased respiratory rate and blood pressure. The patient's mental status was poor as I mention that he was not ready for extubation. I did have a long talk with the family. They do understand that the patient may end up requiring a tracheostomy and PEG tube. He'll continue on antibiotics. No additional recommendations are made. Prognosis is poor. We will use Cleviprex for blood pressure control. We will discontinue all the other medications that were being used for blood pressure. She can titrate off of Plavix better. We sedate the patient. We will use a small amount of narcotic. Additional sedation. We'll place the patient back on the mechanical ventilator. We'll resume nutrition. Additional recommendations and suggestions are forthcoming. Plan dated 10/20/2017 Again the patient had a daily eruption of sedation and did very poorly. He was not a candidate for spontaneous breathing trial. He remains on Cleviprex at a relatively higher dose for blood pressure control and propofol. The patient is getting nutrition. I did talk to the yesterday. I let her know that the patient was not doing well and may be headed towards tracheostomy and PEG tube placement. He remains on updrafts every 4 [id number]. Not able to be weaned today. The patient blood pressure 1 of over 200 and his respiratory rate went up over 40 on holding of sedation. Chest x-ray stable. No additional recommendations are made. Prognosis is guarded. And he may end up with a trach and PEG. Critical care time 33 minutes Plan dated 10/21/2017 The patient did miserably over the weekend. Showed no progress with his daily interruption of sedation. The patient had to be paralyzed her. In addition, the patient needed additional blood pressure medication for blood pressure control. We will consult the thoracic surgeon for PEG and tracheostomy tube. Overall prognosis is poor he continues on all appropriate medications. Superflous and unnecessary medications are discontinued. The patient will continue on Nimbex propofol Cleviprex insulin and nutrition Critical care time 37 minutes Time with Patient: Greater than 30
[2017-10-21 09:10] LABS: Glucose,Whole Blood 178 mg/dL (75-99)
--- NOTE | 2017-10-21 09:57 | P.PN ---
Subjective Patient is seen in follow-up for acute kidney injury, which has resolved. Sodium level is down to 140. He remains intubated and sedated. He is currently being treated for septic arthritis and has undergone debridement of the left ankle as well as wound VAC placement. Cultures are positive for staph species. He is nonoliguric. He is maintained on tube feeding. Patient has been quite hypertensive and is requiring Cleviprex drip at this time. He has not been synchronous with the vent. Vital signs are stable. General: The patient appeared well nourished and normally developed. Intubated. HEENT: Head exam is unremarkable. Neck is without jugular venous distension. LUNGS: Lungs are clear to auscultation and percussion. Breath sounds decreased. HEART: Rate and Rhythm are regular. First and second heart sounds normal. No murmurs, rubs or gallops. ABDOMEN: Abdominal exam reveals normal bowel sounds. Non-tender and non- distended. No evidence of peritonitis. EXTREMITITES: 1+ edema. Left foot wrapped. Objective - Vital Signs Vital signs: Vital Signs Temp 98.8 F 10/21/17 08:30 Pulse 98 10/21/17 09:00 Resp 26 H 10/21/17 09:00 BP 140/59 10/21/17 05:30 Pulse Ox 95 10/21/17 09:00 Intake & Output 10/20/17 10/21/17 10/21/17 18:59 06:59 18:59 Intake Total 1270.806 1046.018 573.312 Output Total 2160 1345 600 Balance -572.028 493.018 -26.688 Weight 160.1 kg 160.1 kg Intake: IV 120 110 10 0.9 NS 120 110 10 Intake, IV Titration 7304.264 9488.018 483.312 Amount Cisatracurium 200 mg In 205.913 Sodium Chloride 0.9% 180 ml @ 1 MCG/KG/MIN 9.69 mls/hr IV .[id number] [facility] Rx #:[id number] Clevidipine Butyrate 25 384.0 335.733 83.6 mg In Empty Bag 1 bag @ 1 MG/HR 2 mls/hr IV .Q24H [facility] Rx#:[id number] Insulin Regular 100 unit 94.919 202.655 22.382 In Sodium Chloride 0.9% 100 ml @ Per Protocol IV .Q0M [facility] Rx#:[id number] Propofol 1,000 mg In 649.053 799.63 171.417 Empty Bag 1 bag @ Per Protocol IV .Q0M [facility] Rx#: [id number] Oral 60 20 Tube Feeding 280 300 60 Other 90 Output: Urine 2160 1345 600 Other: Voiding Method Indwelling Catheter Indwelling Catheter Indwelling Catheter # Voids 1 ABP, PAP, CO, CI - Last Documented Arterial Blood Pressure 171/58 - Labs CBC & Chem 7: 10/21/17 06:00 10/21/17 06:00 Labs: Abnormal Lab Results - Last 24 Hours (Table) 10/20/17 10/20/17 10/20/17 Range/Units 09:52 10:56 12:46 WBC (3.8-10.6) k/uL RBC (4.30-5.90) m/uL Hgb (13.0-17.5) gm/dL Hct (39.0-53.0) % Plt Count (150-450) k/uL Neutrophils # (Manual) (1.3-7.7) k/uL Myelocytes # (Manual) (0) k/uL ABG pH (7.35-7.45) ABG pCO2 (35-45) mmHg ABG pO2 (83-108) mmHg ABG HCO3 (21-25) mmol/L ABG Total CO2 (19-24) mmol/L ABG O2 Saturation (94-97) % BUN (9-20) mg/dL Glucose (74-99) mg/dL POC Glucose (mg/dL) 241 H 195 H 196 H (75-99) mg/dL Phosphorus (2.5-4.5) mg/dL 10/20/17 10/20/17 10/20/17 Range/Units 14:56 17:22 18:08 WBC (3.8-10.6) k/uL RBC (4.30-5.90) m/uL Hgb (13.0-17.5) gm/dL Hct (39.0-53.0) % Plt Count (150-450) k/uL Neutrophils # (Manual) (1.3-7.7) k/uL Myelocytes # (Manual) (0) k/uL ABG pH (7.35-7.45) ABG pCO2 (35-45) mmHg ABG pO2 (83-108) mmHg ABG HCO3 (21-25) mmol/L ABG Total CO2 (19-24) mmol/L ABG O2 Saturation (94-97) % BUN (9-20) mg/dL Glucose (74-99) mg/dL POC Glucose (mg/dL) 203 H 235 H 234 H (75-99) mg/dL Phosphorus (2.5-4.5) mg/dL 10/20/17 10/20/17 10/21/17 Range/Units 20:09 21:55 00:00 WBC (3.8-10.6) k/uL RBC (4.30-5.90) m/uL Hgb (13.0-17.5) gm/dL Hct (39.0-53.0) % Plt Count (150-450) k/uL Neutrophils # (Manual) (1.3-7.7) k/uL Myelocytes # (Manual) (0) k/uL ABG pH (7.35-7.45) ABG pCO2 (35-45) mmHg ABG pO2 (83-108) mmHg ABG HCO3 (21-25) mmol/L ABG Total CO2 (19-24) mmol/L ABG O2 Saturation (94-97) % BUN (9-20) mg/dL Glucose (74-99) mg/dL POC Glucose (mg/dL) 232 H 224 H 202 H (75-99) mg/dL Phosphorus (2.5-4.5) mg/dL 10/21/17 10/21/17 10/21/17 Range/Units 01:42 03:46 04:57 WBC (3.8-10.6) k/uL RBC (4.30-5.90) m/uL Hgb (13.0-17.5) gm/dL Hct (39.0-53.0) % Plt Count (150-450) k/uL Neutrophils # (Manual) (1.3-7.7) k/uL Myelocytes # (Manual) (0) k/uL ABG pH 7.32 L (7.35-7.45) ABG pCO2 53 H (35-45) mmHg ABG pO2 69 L (83-108) mmHg ABG HCO3 27 H (21-25) mmol/L ABG Total CO2 29 H (19-24) mmol/L ABG O2 Saturation 93.8 L (94-97) % BUN (9-20) mg/dL Glucose (74-99) mg/dL POC Glucose (mg/dL) 219 H 207 H (75-99) mg/dL Phosphorus (2.5-4.5) mg/dL 10/21/17 10/21/17 10/21/17 Range/Units 05:53 06:00 06:00 WBC 16.4 H (3.8-10.6) k/uL RBC 3.63 L (4.30-5.90) m/uL Hgb 10.3 L (13.0-17.5) gm/dL Hct 32.7 L (39.0-53.0) % Plt Count 462 H (150-450) k/uL Neutrophils # (Manual) 13.45 H (1.3-7.7) k/uL Myelocytes # (Manual) 0.66 H (0) k/uL ABG pH (7.35-7.45) ABG pCO2 (35-45) mmHg ABG pO2 (83-108) mmHg ABG HCO3 (21-25) mmol/L ABG Total CO2 (19-24) mmol/L ABG O2 Saturation (94-97) % BUN 25 H (9-20) mg/dL Glucose 189 H (74-99) mg/dL POC Glucose (mg/dL) 190 H (75-99) mg/dL Phosphorus 5.4 H (2.5-4.5) mg/dL 10/21/17 10/21/17 10/21/17 Range/Units 06:57 08:11 09:08 WBC (3.8-10.6) k/uL RBC (4.30-5.90) m/uL Hgb (13.0-17.5) gm/dL Hct (39.0-53.0) % Plt Count (150-450) k/uL Neutrophils # (Manual) (1.3-7.7) k/uL Myelocytes # (Manual) (0) k/uL ABG pH (7.35-7.45) ABG pCO2 (35-45) mmHg ABG pO2 (83-108) mmHg ABG HCO3 (21-25) mmol/L ABG Total CO2 (19-24) mmol/L ABG O2 Saturation (94-97) % BUN (9-20) mg/dL Glucose (74-99) mg/dL POC Glucose (mg/dL) 185 H 172 H 178 H (75-99) mg/dL Phosphorus (2.5-4.5) mg/dL Microbiology - Last 24 Hours (Table) 10/17/17 05:50 Blood Culture - Preliminary Blood No Growth after 96 hours 10/17/17 04:07 Blood Culture - Preliminary Blood No Growth after 96 hours Assessment and Plan Plan: Assessment: #1. Nonoliguric acute kidney injury secondary to ATN secondary to severe sepsis and hemodynamic instability. Resolved. #2. Severe sepsis secondary to septic arthritis status post debridement and wound VAC placement. Fluid culture as well as blood culture positive for staph aureus. #3. Insulin-dependent diabetes mellitus. #4. Acute hypercapnic respiratory failure. Currently on ventilator. #5. Respiratory acidosis and metabolic acidosis. Concern for ARDS. #6. Hypernatremia secondary to free water losses from urine and lack of oral water intake. Improved. #7. Proteinuria. This is likely due to underlying diabetic kidney disease. #8. Hypokalemia from poor oral intake and urinary losses. Magnesium replete. Improved post replacement. Plan: He remains off all IV fluids. Continue with tube feeds. Antibiotics per infectious disease recommendations. Avoid nephrotoxic agents and hypotensive episodes. Continue to monitor renal function and urine output. Wean FiO2. Potential trach and PEG in the near future.
[2017-10-21 10:00] LABS: Glucose,Whole Blood 164 mg/dL (75-99)
[2017-10-21] MEDS ORDERED: LIDOCAINE 2% INJ 20 MG/ML SQ ONE (10:30)
--- NOTE | 2017-10-21 10:43 | P.GSCN ---
<Heidi Milner - Last Filed: 10/21/17 10:13> History of Present Illness Consult date: 10/21/17 Reason for Consult: Inability to wean from mechanical ventilation, need for tracheostomy and PEG tube placement. Requesting physician: Levar Moran History of present illness: This is a 52-year-old gentleman who normally follows on an outpatient basis with Dr. Haynes. 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 He presented to [facility] emergency room on October 11 with complaints of severe pain, swelling, and redness over his left ankle. Apparently the pain was so significant that he was unable to bear weight on it. He does have a history of fractures to the left foot and ankle. He also reported associated fevers and chills, but denied any chest pain, shortness of breath, abdominal pain, nausea, vomiting, numbness or tingling. He was admitted for further workup and treatment. Less than 24 hours after being admitted the patient became hypotensive, tachycardic, tachypneic, and hypoxic. He was felt to be septic and was brought to the intensive care unit and intubated. His blood cultures were initially positive for MSSA, however blood cultures drawn October 17 have been negative thus far. He did have incision and drainage for his left foot on October 12 and by orthopedics. Over the weekend multiple weaning attempts have failed, arterial blood gases continued to demonstrate hypoxic respiratory failure, and the patient had to be placed on Nimbex yesterday to keep him synchronous with the ventilator. Dr. Zepeda was consulted for placement of tracheostomy and percutaneous endoscopic gastrostomy tube. Review of Systems 14 point review of systems was completed based on chart review and discussion with his as patient remains sedated, paralyzed, and intubated. - Constitutional Reports as per HPI, Reports chills, Reports fever - Musculoskeletal Reports as per HPI left: foot pain, foot stiffness, foot swelling Past Medical History Past Medical History: Diabetes Mellitus, GERD/Reflux, Hyperlipidemia, Hypertension, Thyroid Disorder Additional Past Medical History / Comment(s): Morbid obesity, diabetic, hypertension, hyperlipidemia, hypothyroidism, previous history of right foot osteomyelitis requiring partial amputation, history of wounds in the lower extremities most recent of which was created by a boots and the patient was treated and the wound had healed, charcoal joints, hiatal hernia 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 I&D RT FOOT, vasectomy, rhinoplasty, tendon surgery right wrist. Past Anesthesia/Blood Transfusion Reactions: No Reported Reaction Past Psychological History: No Psychological Hx Reported Additional Psychological History / Comment(s): and lives in the family home with his and adult children. Works for the [employer] in [employer] [facility]. No experience. No international travel. Stopped smoking several years ago. Denies alcohol abuse. No animal exposures Smoking Status: Former smoker Past Alcohol Use History: Occasional Past Drug Use History: None Reported - Past Family History Father Family Medical History: Coronary Artery Disease (CAD), Diabetes Mellitus, Renal Disease Mother Family Medical History: COPD, Diabetes Mellitus Medications and Allergies Home Medications Medication Instructions Recorded Confirmed Type Empagliflozin [Jardiance] 25 mg PO DAILY 08/10/14 10/11/17 History Ibuprofen [Motrin] 800 mg PO Q6HR PRN 08/10/14 10/11/17 History Insulin Glargine [Lantus] 100 unit SQ BID 08/10/14 10/11/17 History Lovastatin 40 mg PO HS 08/10/14 10/11/17 History metFORMIN HCL 1,000 mg PO DAILY 08/10/14 10/11/17 History Metoprolol Tartrate 25 mg PO BID 08/13/14 10/11/17 History Pregabalin [Lyrica] 100 mg PO TID 08/13/14 10/11/17 History Insulin Lispro [humaLOG] 60 units SQ AC-TID 03/28/15 10/12/17 History hydrALAZINE HCL [Apresoline] 100 mg PO BID 05/26/15 10/11/17 History Gabapentin 600 mg PO DAILY 10/11/17 10/11/17 History HYDROcodone/APAP 5-325MG [[place] 1 tab PO TID PRN 10/11/17 10/11/17 History 5-325] Levothyroxine Sodium [Synthroid] 150 mcg PO DAILY 10/11/17 10/11/17 History Ramipril 10 mg PO DAILY 10/11/17 10/11/17 History Allergies Allergy/AdvReac Type Severity Reaction Status Date / Time sulfamethoxazole AdvReac Severe Nausea, Verified 10/11/17 21:36 [From Bactrim] Dizziness, Headaches trimethoprim [From Bactrim] AdvReac Severe Nausea, Verified 10/11/17 21:36 Dizziness, Headaches Surgical - Exam Vital Signs Temp Pulse Resp BP Pulse Ox 98.9 F 107 H 19 125/75 94 L 10/11/17 20:34 10/11/17 20:34 10/11/17 20:34 10/11/17 20:34 10/11/17 20:34 - General well developed, no distress, cachectic, obese - Eyes PERRL - Neck no masses, no bruits, trachea midline - Respiratory Lungs sounds diminished and coursed bilaterally. Respirations even, nonlabored on mechanical ventilation. Current ventilator settings assist control mode, FiO2 70%, tidal volume 500, respiratory rate 26, PEEP 12. 8.0 ET tube present, 25 at the lip. - Cardiovascular S1, S2 present. Regular rate and rhythm, sinus rhythm on telemetry. Palpable peripheral pulses bilaterally. Generalized edema present. SCDs present. Remains on Cleviprex for blood pressure control. - Abdomen Tympanic bowel sounds with percussion over right lower quadrant. No documented bowel movement since admission. Patient is receiving tube feeding at 20 mL/hr, no residual per RN. Abdomen: soft, bowel sounds, distended - Genitourinary Riddle present draining clear, yellow urine. - Rectum Deferred - Integumentary Left lower extremity Geoffrey wrapped from toes to knee. Right great toe post amputation, incision well healed. no rash, no growths - Neurologic Sedated with propofol, paralyzed with Nimbex on mechanical ventilation. Train- of-four being completed by nursing staff. Results - Labs 10/21/17 06:00 10/21/17 06:00 Abnormal Lab Results - Last 24 Hours (Table) 10/20/17 10/20/17 10/20/17 Range/Units 10:56 12:46 14:56 WBC (3.8-10.6) k/uL RBC (4.30-5.90) m/uL Hgb (13.0-17.5) gm/dL Hct (39.0-53.0) % Plt Count (150-450) k/uL Neutrophils # (Manual) (1.3-7.7) k/uL Myelocytes # (Manual) (0) k/uL ABG pH (7.35-7.45) ABG pCO2 (35-45) mmHg ABG pO2 (83-108) mmHg ABG HCO3 (21-25) mmol/L ABG Total CO2 (19-24) mmol/L ABG O2 Saturation (94-97) % BUN (9-20) mg/dL Glucose (74-99) mg/dL POC Glucose (mg/dL) 195 H 196 H 203 H (75-99) mg/dL Phosphorus (2.5-4.5) mg/dL 10/20/17 10/20/17 10/20/17 Range/Units 17:22 18:08 20:09 WBC (3.8-10.6) k/uL RBC (4.30-5.90) m/uL Hgb (13.0-17.5) gm/dL Hct (39.0-53.0) % Plt Count (150-450) k/uL Neutrophils # (Manual) (1.3-7.7) k/uL Myelocytes # (Manual) (0) k/uL ABG pH (7.35-7.45) ABG pCO2 (35-45) mmHg ABG pO2 (83-108) mmHg ABG HCO3 (21-25) mmol/L ABG Total CO2 (19-24) mmol/L ABG O2 Saturation (94-97) % BUN (9-20) mg/dL Glucose (74-99) mg/dL POC Glucose (mg/dL) 235 H 234 H 232 H (75-99) mg/dL Phosphorus (2.5-4.5) mg/dL 10/20/17 10/21/17 10/21/17 Range/Units 21:55 00:00 01:42 WBC (3.8-10.6) k/uL RBC (4.30-5.90) m/uL Hgb (13.0-17.5) gm/dL Hct (39.0-53.0) % Plt Count (150-450) k/uL Neutrophils # (Manual) (1.3-7.7) k/uL Myelocytes # (Manual) (0) k/uL ABG pH (7.35-7.45) ABG pCO2 (35-45) mmHg ABG pO2 (83-108) mmHg ABG HCO3 (21-25) mmol/L ABG Total CO2 (19-24) mmol/L ABG O2 Saturation (94-97) % BUN (9-20) mg/dL Glucose (74-99) mg/dL POC Glucose (mg/dL) 224 H 202 H 219 H (75-99) mg/dL Phosphorus (2.5-4.5) mg/dL 10/21/17 10/21/17 10/21/17 Range/Units 03:46 04:57 05:53 WBC (3.8-10.6) k/uL RBC (4.30-5.90) m/uL Hgb (13.0-17.5) gm/dL Hct (39.0-53.0) % Plt Count (150-450) k/uL Neutrophils # (Manual) (1.3-7.7) k/uL Myelocytes # (Manual) (0) k/uL ABG pH 7.32 L (7.35-7.45) ABG pCO2 53 H (35-45) mmHg ABG pO2 69 L (83-108) mmHg ABG HCO3 27 H (21-25) mmol/L ABG Total CO2 29 H (19-24) mmol/L ABG O2 Saturation 93.8 L (94-97) % BUN (9-20) mg/dL Glucose (74-99) mg/dL POC Glucose (mg/dL) 207 H 190 H (75-99) mg/dL Phosphorus (2.5-4.5) mg/dL 10/21/17 10/21/17 10/21/17 Range/Units 06:00 06:00 06:57 WBC 16.4 H (3.8-10.6) k/uL RBC 3.63 L (4.30-5.90) m/uL Hgb 10.3 L (13.0-17.5) gm/dL Hct 32.7 L (39.0-53.0) % Plt Count 462 H (150-450) k/uL Neutrophils # (Manual) 13.45 H (1.3-7.7) k/uL Myelocytes # (Manual) 0.66 H (0) k/uL ABG pH (7.35-7.45) ABG pCO2 (35-45) mmHg ABG pO2 (83-108) mmHg ABG HCO3 (21-25) mmol/L ABG Total CO2 (19-24) mmol/L ABG O2 Saturation (94-97) % BUN 25 H (9-20) mg/dL Glucose 189 H (74-99) mg/dL POC Glucose (mg/dL) 185 H (75-99) mg/dL Phosphorus 5.4 H (2.5-4.5) mg/dL 10/21/17 10/21/17 10/21/17 Range/Units 08:11 09:08 09:57 WBC (3.8-10.6) k/uL RBC (4.30-5.90) m/uL Hgb (13.0-17.5) gm/dL Hct (39.0-53.0) % Plt Count (150-450) k/uL Neutrophils # (Manual) (1.3-7.7) k/uL Myelocytes # (Manual) (0) k/uL ABG pH (7.35-7.45) ABG pCO2 (35-45) mmHg ABG pO2 (83-108) mmHg ABG HCO3 (21-25) mmol/L ABG Total CO2 (19-24) mmol/L ABG O2 Saturation (94-97) % BUN (9-20) mg/dL Glucose (74-99) mg/dL POC Glucose (mg/dL) 172 H 178 H 164 H (75-99) mg/dL Phosphorus (2.5-4.5) mg/dL Microbiology - Last 24 Hours (Table) 10/17/17 05:50 Blood Culture - Preliminary Blood No Growth after 96 hours 10/17/17 04:07 Blood Culture - Preliminary Blood No Growth after 96 hours Diabetes panel 10/21/17 Range/Units 06:00 Sodium 140 (137-145) mmol/L Potassium 4.1 (3.5-5.1) mmol/L Chloride 103 (98-107) mmol/L Carbon Dioxide 27 (22-30) mmol/L BUN 25 H (9-20) mg/dL Creatinine 0.90 (0.66-1.25) mg/dL Glucose 189 H (74-99) mg/dL Calcium 9.3 (8.4-10.2) mg/dL Calcium panel 10/21/17 Range/Units 06:00 Calcium 9.3 (8.4-10.2) mg/dL Phosphorus 5.4 H (2.5-4.5) mg/dL Pituitary panel 10/21/17 Range/Units 06:00 Sodium 140 (137-145) mmol/L Potassium 4.1 (3.5-5.1) mmol/L Chloride 103 (98-107) mmol/L Carbon Dioxide 27 (22-30) mmol/L BUN 25 H (9-20) mg/dL Creatinine 0.90 (0.66-1.25) mg/dL Glucose 189 H (74-99) mg/dL Calcium 9.3 (8.4-10.2) mg/dL Adrenal panel 10/21/17 Range/Units 06:00 Sodium 140 (137-145) mmol/L Potassium 4.1 (3.5-5.1) mmol/L Chloride 103 (98-107) mmol/L Carbon Dioxide 27 (22-30) mmol/L BUN 25 H (9-20) mg/dL Creatinine 0.90 (0.66-1.25) mg/dL Glucose 189 H (74-99) mg/dL Calcium 9.3 (8.4-10.2) mg/dL - Imaging Chest x-ray: report reviewed, image reviewed Assessment and Plan (1) Diabetes mellitus Current Visit: Yes Status: Chronic Code(s): E11.9 - TYPE 2 DIABETES MELLITUS WITHOUT COMPLICATIONS SNOMED Code(s): 30865295 (2) Acute respiratory failure with hypoxia Current Visit: Yes Status: Acute Code(s): J96.01 - ACUTE RESPIRATORY FAILURE WITH HYPOXIA SNOMED Code(s): 80089077 (3) Morbid obesity with BMI of 45.0-49.9, adult Current Visit: Yes Status: Chronic Code(s): E66.01 - MORBID (SEVERE) OBESITY DUE TO EXCESS CALORIES; Z68.42 - BODY MASS INDEX (BMI) 45.0-49.9, ADULT SNOMED Code(s): 533404915 (4) Hypertension Current Visit: Yes Status: Chronic Code(s): I10 - ESSENTIAL (PRIMARY) HYPERTENSION SNOMED Code(s): 05091269 (5) Charcot ankle Current Visit: Yes Status: Chronic Code(s): M14.679 - CHARCOT'S JOINT, UNSPECIFIED ANKLE AND FOOT SNOMED Code(s): 764441911 (6) Hypothyroid Current Visit: Yes Status: Chronic Code(s): E03.9 - HYPOTHYROIDISM, UNSPECIFIED SNOMED Code(s): 59526458 (7) Acute kidney injury Current Visit: Yes Status: Acute Code(s): N17.9 - ACUTE KIDNEY FAILURE, UNSPECIFIED SNOMED Code(s): 23642399 (8) Hyperlipidemia associated with type 2 diabetes mellitus Current Visit: Yes Status: Chronic Code(s): E11.69 - TYPE 2 DIABETES MELLITUS WITH OTHER SPECIFIED COMPLICATION; E78.5 - HYPERLIPIDEMIA, UNSPECIFIED SNOMED Code(s): 935425164614 (9) Tobacco dependence in remission Current Visit: No Status: Resolved Code(s): F17.201 - NICOTINE DEPENDENCE, UNSPECIFIED, IN REMISSION SNOMED Code(s): 982778832 (10) Poorly controlled type 2 diabetes mellitus with complication Current Visit: Yes Status: Chronic Code(s): E11.8 - TYPE 2 DIABETES MELLITUS WITH UNSPECIFIED COMPLICATIONS; E11.65 - TYPE 2 DIABETES MELLITUS WITH HYPERGLYCEMIA SNOMED Code(s): 63214690 (11) Sepsis Current Visit: Yes Status: Acute Priority: Medium Code(s): A41.9 - SEPSIS , UNSPECIFIED ORGANISM SNOMED Code(s): 51962036 (12) Septic arthritis of left ankle Current Visit: Yes Status: Acute Code(s): M00.9 - PYOGENIC ARTHRITIS, UNSPECIFIED SNOMED Code(s): 73218556 Plan: The patient was seen and examined with at the bedside. Chart/diagnostics were reviewed. Case discussed with Dr. Zepeda. We will plan for tracheostomy and PEG tube placement on Saturday, October 23. The patient does have a large body habitus and thick neck which may make tracheostomy placement challenging. Tube feeding should be turned off at midnight. Bowel stimulation continue, would like patient to have had a bowel movement prior to surgery. The patient is currently on IV Kefzol. Ventilator management per pulmonology, would like ventilator settings to be weaned down if possible. Medical comorbidities to be managed per primary care service. More recommendations to follow. Thank you Dr. Moran for this consult. Please call us with any concerns. Time with Patient: Greater than 30 <Darwin Zepeda - Last Filed: 10/22/17 11:55> Surgical - Exam Osteopathic Statement: *. No significant issues noted on an osteopathic structural exam other than those noted in the History and Physical/Consult. Vital Signs Temp Pulse Resp BP Pulse Ox 98.9 F 107 H 19 125/75 94 L 10/11/17 20:34 10/11/17 20:34 10/11/17 20:34 10/11/17 20:34 10/11/17 20:34 Results - Labs 10/22/17 04:00 10/22/17 04:00 Abnormal Lab Results - Last 24 Hours (Table) 10/21/17 10/21/17 10/21/17 Range/Units 13:26 14:01 15:05 WBC (3.8-10.6) k/uL RBC (4.30-5.90) m/uL Hgb (13.0-17.5) gm/dL Hct (39.0-53.0) % ABG pCO2 (35-45) mmHg ABG pO2 (83-108) mmHg ABG HCO3 (21-25) mmol/L ABG Total CO2 (19-24) mmol/L ABG O2 Saturation (94-97) % BUN (9-20) mg/dL Glucose (74-99) mg/dL POC Glucose (mg/dL) 138 H 153 H 141 H (75-99) mg/dL Phosphorus (2.5-4.5) mg/dL 10/21/17 10/21/17 10/21/17 Range/Units 16:06 17:07 17:15 WBC (3.8-10.6) k/uL RBC (4.30-5.90) m/uL Hgb (13.0-17.5) gm/dL Hct (39.0-53.0) % ABG pCO2 (35-45) mmHg ABG pO2 (83-108) mmHg ABG HCO3 (21-25) mmol/L ABG Total CO2 (19-24) mmol/L ABG O2 Saturation (94-97) % BUN (9-20) mg/dL Glucose (74-99) mg/dL POC Glucose (mg/dL) 128 H 154 H 152 H (75-99) mg/dL Phosphorus (2.5-4.5) mg/dL 10/21/17 10/21/17 10/21/17 Range/Units 18:16 19:00 20:03 WBC (3.8-10.6) k/uL RBC (4.30-5.90) m/uL Hgb (13.0-17.5) gm/dL Hct (39.0-53.0) % ABG pCO2 (35-45) mmHg ABG pO2 (83-108) mmHg ABG HCO3 (21-25) mmol/L ABG Total CO2 (19-24) mmol/L ABG O2 Saturation (94-97) % BUN (9-20) mg/dL Glucose (74-99) mg/dL POC Glucose (mg/dL) 139 H 138 H 143 H (75-99) mg/dL Phosphorus (2.5-4.5) mg/dL 10/21/17 10/21/17 10/21/17 Range/Units 21:20 22:17 23:06 WBC (3.8-10.6) k/uL RBC (4.30-5.90) m/uL Hgb (13.0-17.5) gm/dL Hct (39.0-53.0) % ABG pCO2 (35-45) mmHg ABG pO2 (83-108) mmHg ABG HCO3 (21-25) mmol/L ABG Total CO2 (19-24) mmol/L ABG O2 Saturation (94-97) % BUN (9-20) mg/dL Glucose (74-99) mg/dL POC Glucose (mg/dL) 162 H 145 H 138 H (75-99) mg/dL Phosphorus (2.5-4.5) mg/dL 10/22/17 10/22/17 10/22/17 Range/Units 00:10 01:03 01:59 WBC (3.8-10.6) k/uL RBC (4.30-5.90) m/uL Hgb (13.0-17.5) gm/dL Hct (39.0-53.0) % ABG pCO2 (35-45) mmHg ABG pO2 (83-108) mmHg ABG HCO3 (21-25) mmol/L ABG Total CO2 (19-24) mmol/L ABG O2 Saturation (94-97) % BUN (9-20) mg/dL Glucose (74-99) mg/dL POC Glucose (mg/dL) 133 H 129 H 108 H (75-99) mg/dL Phosphorus (2.5-4.5) mg/dL 10/22/17 10/22/17 10/22/17 Range/Units 03:20 04:00 04:00 WBC 15.6 H (3.8-10.6) k/uL RBC 3.26 L (4.30-5.90) m/uL Hgb 9.2 L (13.0-17.5) gm/dL Hct 29.4 L (39.0-53.0) % ABG pCO2 (35-45) mmHg ABG pO2 (83-108) mmHg ABG HCO3 (21-25) mmol/L ABG Total CO2 (19-24) mmol/L ABG O2 Saturation (94-97) % BUN 27 H (9-20) mg/dL Glucose 140 H (74-99) mg/dL POC Glucose (mg/dL) 137 H (75-99) mg/dL Phosphorus (2.5-4.5) mg/dL 10/22/17 10/22/17 10/22/17 Range/Units 04:00 04:01 05:10 WBC (3.8-10.6) k/uL RBC (4.30-5.90) m/uL Hgb (13.0-17.5) gm/dL Hct (39.0-53.0) % ABG pCO2 48 H (35-45) mmHg ABG pO2 139 H (83-108) mmHg ABG HCO3 27 H (21-25) mmol/L ABG Total CO2 29 H (19-24) mmol/L ABG O2 Saturation 99.2 H (94-97) % BUN (9-20) mg/dL Glucose (74-99) mg/dL POC Glucose (mg/dL) 138 H (75-99) mg/dL Phosphorus 5.0 H (2.5-4.5) mg/dL 10/22/17 10/22/17 10/22/17 Range/Units 05:10 05:53 07:10 WBC (3.8-10.6) k/uL RBC (4.30-5.90) m/uL Hgb (13.0-17.5) gm/dL Hct (39.0-53.0) % ABG pCO2 (35-45) mmHg ABG pO2 (83-108) mmHg ABG HCO3 (21-25) mmol/L ABG Total CO2 (19-24) mmol/L ABG O2 Saturation (94-97) % BUN (9-20) mg/dL Glucose (74-99) mg/dL POC Glucose (mg/dL) 167 H 157 H 151 H (75-99) mg/dL Phosphorus (2.5-4.5) mg/dL 10/22/17 10/22/17 10/22/17 Range/Units 08:07 09:03 09:59 WBC (3.8-10.6) k/uL RBC (4.30-5.90) m/uL Hgb (13.0-17.5) gm/dL Hct (39.0-53.0) % ABG pCO2 (35-45) mmHg ABG pO2 (83-108) mmHg ABG HCO3 (21-25) mmol/L ABG Total CO2 (19-24) mmol/L ABG O2 Saturation (94-97) % BUN (9-20) mg/dL Glucose (74-99) mg/dL POC Glucose (mg/dL) 148 H 138 H 137 H (75-99) mg/dL Phosphorus (2.5-4.5) mg/dL 10/22/17 Range/Units 11:00 WBC (3.8-10.6) k/uL RBC (4.30-5.90) m/uL Hgb (13.0-17.5) gm/dL Hct (39.0-53.0) % ABG pCO2 (35-45) mmHg ABG pO2 (83-108) mmHg ABG HCO3 (21-25) mmol/L ABG Total CO2 (19-24) mmol/L ABG O2 Saturation (94-97) % BUN (9-20) mg/dL Glucose (74-99) mg/dL POC Glucose (mg/dL) 135 H (75-99) mg/dL Phosphorus (2.5-4.5) mg/dL Microbiology - Last 24 Hours (Table) 10/17/17 05:50 Blood Culture - Preliminary Blood No Growth after 120 hours 10/17/17 04:07 Blood Culture - Preliminary Blood No Growth after 120 hours Diabetes panel 10/22/17 Range/Units 04:00 Sodium 141 (137-145) mmol/L Potassium 4.4 (3.5-5.1) mmol/L Chloride 105 (98-107) mmol/L Carbon Dioxide 27 (22-30) mmol/L BUN 27 H (9-20) mg/dL Creatinine 0.79 (0.66-1.25) mg/dL Glucose 140 H (74-99) mg/dL Calcium 9.0 (8.4-10.2) mg/dL Calcium panel 10/22/17 10/22/17 Range/Units 04:00 04:00 Calcium 9.0 (8.4-10.2) mg/dL Phosphorus 5.0 H (2.5-4.5) mg/dL Pituitary panel 10/22/17 Range/Units 04:00 Sodium 141 (137-145) mmol/L Potassium 4.4 (3.5-5.1) mmol/L Chloride 105 (98-107) mmol/L Carbon Dioxide 27 (22-30) mmol/L BUN 27 H (9-20) mg/dL Creatinine 0.79 (0.66-1.25) mg/dL Glucose 140 H (74-99) mg/dL Calcium 9.0 (8.4-10.2) mg/dL Adrenal panel 10/22/17 Range/Units 04:00 Sodium 141 (137-145) mmol/L Potassium 4.4 (3.5-5.1) mmol/L Chloride 105 (98-107) mmol/L Carbon Dioxide 27 (22-30) mmol/L BUN 27 H (9-20) mg/dL Creatinine 0.79 (0.66-1.25) mg/dL Glucose 140 H (74-99) mg/dL Calcium 9.0 (8.4-10.2) mg/dL Assessment and Plan Plan: Nurse practitioner no reviewed and accepted. I discussed with the in detail the procedures of tracheostomy and PEG tube. We discussed this particulars of the procedure as well as risks and options. She appears to understand these things and we will proceed tomorrow.
--- NOTE | 2017-10-21 11:08 | XR ---
EXAMINATION TYPE: XR chest 1V portable DATE OF EXAM: 10/21/2017 COMPARISON: NONE HISTORY: Newly placed right PICC. TECHNIQUE: Single frontal view of the chest is obtained. FINDINGS: New right sided PICC terminates in the superior vena cava. Endotracheal tube, enteric tube, and left-sided central venous catheter are unchanged in position. There are low lung volumes accentu ating the pulmonary vasculature. Bibasilar airspace disease has slightly worsened in the interim, par tially due to degree of inspiration. Cardiomegaly remains. Osseous structures are intact. IMPRESSION: 1. Appropriately placed new right PICC. 2. Otherwise stable lines and tubes. 3. Progressed bibasilar airspace disease from the prior that partially relates to hypoventilatory hailey gs.
[2017-10-21 11:12] LABS: Glucose,Whole Blood 156 mg/dL (75-99)
--- NOTE | 2017-10-21 11:26 | IR ---
PICC LINE PLACEMENT: HISTORY: Infection requiring long-term antibiotic therapy PROCEDURE: Ultrasound guidance of PICC line placement. COMPLICATIONS: None ANESTHESIA: 1. 1% Lidocaine locally. FINDINGS/TECHNIQUE: The procedure was explained to the patient. The risks, complications, benefits and alternatives were discussed and any questions were answered. Informed consent was obtained. The patient was placed supine on the fluoroscopic table and prepped and draped in the usual sterile fash ion. Utilizing a 21 gauge needle and sonographic guidance, access in the left basilic vein was achi eved and there is placement of a 0.018 guidewire. The vein is patent. A 5-F. sheath was placed over the guidewire. The guidewire and dilator were removed and a 5-F. Double lumen PICC line was placed through the sheath with the chest x-ray confirming the tip at the level of the SVC. The sheath was r emoved, the catheter was flushed and sutured into position. The patient was stable throughout the pr ocedure and remained stable upon discharge from the Department of Radiology. The vein puncture was patent under ultrasound. A christina scale image was obtained to document patency of the vein punctured. All elements of the maximal barrier technique were utilized. IMPRESSION: 1. Successful PICC line placement under ultrasound performed bedside within the ICU.
[2017-10-21 13:29] LABS: Glucose,Whole Blood 138 mg/dL (75-99)
[2017-10-21 14:03] LABS: Glucose,Whole Blood 153 mg/dL (75-99)
--- NOTE | 2017-10-21 14:10 | P.PN ---
Subjective 52-year-old admitted to ICU secondary to sepsis leading to acute respiratory distress syndrome patient remains intubated on ventilator is being managed by glove cleaner patient underwent irrigation and the bride meant of the left ankle twice during this hospitalization. Patient has MSSA in the joint and patient is presently on ceftezole and for that reason. Patient is intubated sedated and patient is on Precedex with anticipation of extubation tomorrow. 10/20/2017 Patient remains intubated patient is on high-dose of IV insulin and requiring large amounts of sedation remains in hypoxic respiratory failure had a low- grade fever today if he continues to have low-grade fevers or has a high-grade fever repeat blood cultures will be obtained 10/21/2017 Patient maintains intubated, still remains on 70% FiO2 and glove cleaner his considering tracheostomy and PEG tube placement. Patient had low-grade fevers yesterday. Patient is on paralytic agents now with fairly well-controlled blood pressure, clevidipine was discontinued Objective - Vital Signs Vital signs: Vital Signs Temp 98.4 F 10/21/17 13:00 Pulse 80 10/21/17 13:30 Resp 26 H 10/21/17 13:30 BP 125/59 10/21/17 13:30 Pulse Ox 98 10/21/17 13:30 Intake & Output 10/20/17 10/21/17 10/21/17 18:59 06:59 18:59 Intake Total 5743.961 9781.018 971.365 Output Total 2160 1345 1300 Balance -572.028 493.018 -328.635 Weight 160.1 kg 160.1 kg Intake: IV 120 110 10 0.9 NS 120 110 10 Intake, IV Titration 9446.485 9313.018 821.365 Amount Cisatracurium 200 mg In 326.715 Sodium Chloride 0.9% 180 ml @ 1 MCG/KG/MIN 9.69 mls/hr IV .[id number] [facility] Rx #:[id number] Clevidipine Butyrate 25 384.0 335.733 149.432 mg In Empty Bag 1 bag @ 1 MG/HR 2 mls/hr IV .Q24H [facility] Rx#:[id number] Insulin Regular 100 unit 94.919 202.655 46.594 In Sodium Chloride 0.9% 100 ml @ Per Protocol IV .Q0M [facility] Rx#:[id number] Propofol 1,000 mg In 649.053 799.63 298.624 Empty Bag 1 bag @ Per Protocol IV .Q0M [facility] Rx#: [id number] Oral 60 40 Tube Feeding 280 300 100 Other 90 Output: Urine 2160 1345 1300 Other: Voiding Method Indwelling Catheter Indwelling Catheter Indwelling Catheter # Voids 1 # Bowel Movements 1 ABP, PAP, CO, CI - Last Documented Arterial Blood Pressure 125/56 - Exam PHYSICAL EXAMINATION: GENERAL: Patient is intubated sedated, morbidly obese NG tube in place please refer to glove cleaner dictation for further details of went settings, sedation score. HEENT: Pupils are round and equally reacting to light. EOMI. No scleral icterus. No conjunctival pallor. Normocephalic, atraumatic. No pharyngeal erythema. No thyromegaly. CARDIOVASCULAR: S1 and S2 present. No murmurs, rubs, or gallops. PULMONARY: Chest is clear to auscultation, no wheezing or crackles. ABDOMEN: Soft, nontender, nondistended, normoactive bowel sounds. No palpable organomegaly. MUSCULOSKELETAL: Patient left leg is wrapped in Geoffrey bandages EXTREMITIES: No cyanosis, clubbing, or pedal edema. NEUROLOGICAL: Unable to assess due to the above-mentioned reasons SKIN: No rashes. - Labs CBC & Chem 7: 10/21/17 06:00 10/21/17 06:00 Labs: Abnormal Lab Results - Last 24 Hours (Table) 10/20/17 10/20/17 10/20/17 Range/Units 14:56 17:22 18:08 WBC (3.8-10.6) k/uL RBC (4.30-5.90) m/uL Hgb (13.0-17.5) gm/dL Hct (39.0-53.0) % Plt Count (150-450) k/uL Neutrophils # (Manual) (1.3-7.7) k/uL Myelocytes # (Manual) (0) k/uL ABG pH (7.35-7.45) ABG pCO2 (35-45) mmHg ABG pO2 (83-108) mmHg ABG HCO3 (21-25) mmol/L ABG Total CO2 (19-24) mmol/L ABG O2 Saturation (94-97) % BUN (9-20) mg/dL Glucose (74-99) mg/dL POC Glucose (mg/dL) 203 H 235 H 234 H (75-99) mg/dL Phosphorus (2.5-4.5) mg/dL 10/20/17 10/20/17 10/21/17 Range/Units 20:09 21:55 00:00 WBC (3.8-10.6) k/uL RBC (4.30-5.90) m/uL Hgb (13.0-17.5) gm/dL Hct (39.0-53.0) % Plt Count (150-450) k/uL Neutrophils # (Manual) (1.3-7.7) k/uL Myelocytes # (Manual) (0) k/uL ABG pH (7.35-7.45) ABG pCO2 (35-45) mmHg ABG pO2 (83-108) mmHg ABG HCO3 (21-25) mmol/L ABG Total CO2 (19-24) mmol/L ABG O2 Saturation (94-97) % BUN (9-20) mg/dL Glucose (74-99) mg/dL POC Glucose (mg/dL) 232 H 224 H 202 H (75-99) mg/dL Phosphorus (2.5-4.5) mg/dL 10/21/17 10/21/17 10/21/17 Range/Units 01:42 03:46 04:57 WBC (3.8-10.6) k/uL RBC (4.30-5.90) m/uL Hgb (13.0-17.5) gm/dL Hct (39.0-53.0) % Plt Count (150-450) k/uL Neutrophils # (Manual) (1.3-7.7) k/uL Myelocytes # (Manual) (0) k/uL ABG pH 7.32 L (7.35-7.45) ABG pCO2 53 H (35-45) mmHg ABG pO2 69 L (83-108) mmHg ABG HCO3 27 H (21-25) mmol/L ABG Total CO2 29 H (19-24) mmol/L ABG O2 Saturation 93.8 L (94-97) % BUN (9-20) mg/dL Glucose (74-99) mg/dL POC Glucose (mg/dL) 219 H 207 H (75-99) mg/dL Phosphorus (2.5-4.5) mg/dL 10/21/17 10/21/17 10/21/17 Range/Units 05:53 06:00 06:00 WBC 16.4 H (3.8-10.6) k/uL RBC 3.63 L (4.30-5.90) m/uL Hgb 10.3 L (13.0-17.5) gm/dL Hct 32.7 L (39.0-53.0) % Plt Count 462 H (150-450) k/uL Neutrophils # (Manual) 13.45 H (1.3-7.7) k/uL Myelocytes # (Manual) 0.66 H (0) k/uL ABG pH (7.35-7.45) ABG pCO2 (35-45) mmHg ABG pO2 (83-108) mmHg ABG HCO3 (21-25) mmol/L ABG Total CO2 (19-24) mmol/L ABG O2 Saturation (94-97) % BUN 25 H (9-20) mg/dL Glucose 189 H (74-99) mg/dL POC Glucose (mg/dL) 190 H (75-99) mg/dL Phosphorus 5.4 H (2.5-4.5) mg/dL 10/21/17 10/21/17 10/21/17 Range/Units 06:57 08:11 09:08 WBC (3.8-10.6) k/uL RBC (4.30-5.90) m/uL Hgb (13.0-17.5) gm/dL Hct (39.0-53.0) % Plt Count (150-450) k/uL Neutrophils # (Manual) (1.3-7.7) k/uL Myelocytes # (Manual) (0) k/uL ABG pH (7.35-7.45) ABG pCO2 (35-45) mmHg ABG pO2 (83-108) mmHg ABG HCO3 (21-25) mmol/L ABG Total CO2 (19-24) mmol/L ABG O2 Saturation (94-97) % BUN (9-20) mg/dL Glucose (74-99) mg/dL POC Glucose (mg/dL) 185 H 172 H 178 H (75-99) mg/dL Phosphorus (2.5-4.5) mg/dL 10/21/17 10/21/17 10/21/17 Range/Units 09:57 11:06 13:26 WBC (3.8-10.6) k/uL RBC (4.30-5.90) m/uL Hgb (13.0-17.5) gm/dL Hct (39.0-53.0) % Plt Count (150-450) k/uL Neutrophils # (Manual) (1.3-7.7) k/uL Myelocytes # (Manual) (0) k/uL ABG pH (7.35-7.45) ABG pCO2 (35-45) mmHg ABG pO2 (83-108) mmHg ABG HCO3 (21-25) mmol/L ABG Total CO2 (19-24) mmol/L ABG O2 Saturation (94-97) % BUN (9-20) mg/dL Glucose (74-99) mg/dL POC Glucose (mg/dL) 164 H 156 H 138 H (75-99) mg/dL Phosphorus (2.5-4.5) mg/dL 10/21/17 Range/Units 14:01 WBC (3.8-10.6) k/uL RBC (4.30-5.90) m/uL Hgb (13.0-17.5) gm/dL Hct (39.0-53.0) % Plt Count (150-450) k/uL Neutrophils # (Manual) (1.3-7.7) k/uL Myelocytes # (Manual) (0) k/uL ABG pH (7.35-7.45) ABG pCO2 (35-45) mmHg ABG pO2 (83-108) mmHg ABG HCO3 (21-25) mmol/L ABG Total CO2 (19-24) mmol/L ABG O2 Saturation (94-97) % BUN (9-20) mg/dL Glucose (74-99) mg/dL POC Glucose (mg/dL) 153 H (75-99) mg/dL Phosphorus (2.5-4.5) mg/dL Microbiology - Last 24 Hours (Table) 10/17/17 05:50 Blood Culture - Preliminary Blood No Growth after 96 hours 10/17/17 04:07 Blood Culture - Preliminary Blood No Growth after 96 hours Assessment and Plan Plan: Acute septic arthritis of the left ankle, status post left ankle irrigation with debridement, twice during this hospitalization and patient has MSSA and patient is on ceftezolin. Acute hypoxemic respiratory failure requiring intubation and mechanical ventilation with failure to wean from mechanical ventilation, possibility of ARDS Acute severe sepsis with positive blood cultures for methicillin sensitive Staphylococcus Mental status changes, set secondary to sepsis encephalopath Diabetes mellitus: Per can you present regimen titrate as necessary Severe peripheral neuropathy History of chronic wounds and ulcerations of the lower extremities with cellulitis Charcot joints Morbid obesity Hypertension Hyperlipidemia Hypothyroidism Acute kidney injury
[2017-10-21 15:08] LABS: Glucose,Whole Blood 141 mg/dL (75-99)
[2017-10-21 16:08] LABS: Glucose,Whole Blood 128 mg/dL (75-99)
[2017-10-21 17:09] LABS: Glucose,Whole Blood 154 mg/dL (75-99)
[2017-10-21 17:16] LABS: Glucose,Whole Blood 152 mg/dL (75-99)
[2017-10-21 18:17] LABS: Glucose,Whole Blood 139 mg/dL (75-99)
[2017-10-21] MEDS: MORPHINE SULFATE 4 MG/ML SYRINGE IVP PRN ×2 (18:32→22:35)
[2017-10-21 19:02] LABS: Glucose,Whole Blood 138 mg/dL (75-99)
[2017-10-21 20:05] LABS: Glucose,Whole Blood 143 mg/dL (75-99)
[2017-10-21 21:21] LABS: Glucose,Whole Blood 162 mg/dL (75-99)
[2017-10-21 22:18] LABS: Glucose,Whole Blood 145 mg/dL (75-99)
--- NOTE | 2017-10-21 22:26 | P.PN ---
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 The patient is been having some difficulties with his left ankle and following with the orthopedic surgeon. Because of some discomfort at the joint he was measured and given a new bracing device for the foot and ankle. However grommet on the dorsum of the foot resulted in a bit of an ulcer and he was concerned and sought care in the office. The patient had difficulty making the appointment because of the weather and has significant distance from work to the office and reschedule. When he came to the office earlier this week the ulceration had healed and he was feeling better but was still having some swelling to the ankle area. He had no fever or chills at the time of presentation to the office, but did have the swelling to the ankle area for which she had a specialty boot that have been designed that he was not wearing that day. He however presents to the emergency center because of the sudden onset of inability to bear weight to the ankle because of the amount of pain that he started to have. Shortly thereafter he became febrile and has had a rapid decline in his status with evidence of sepsis and presentation to the intensive care unit. The case is discussed with the biochemical engineer as well as the orthopedic foot and ankle specialist. Given his rapid decline in status he'll go to the operating room this afternoon. The patient is acutely ill with fever chills generalized weakness and malaise and some alteration of his mental status 10/13/2017 patient remains in intensive care unit with ongoing sepsis. Appears to have acute lung injury and also has an elevation of his creatinine likely with an acute renal injury also occurring from his sepsis. Laboratories revealed evidence of staph aureus await final susceptibility. Follow blood cultures in process reasonable cultures are positive. Patient continues to have some ongoing fevers and is admitted of nausea with the response to Zofran. He is still in a warm flushed phase of sepsis and hopefully now that he has been resuscitated will have further improvement of his status. 10/14/2017 patient does have some improvement today. He is not hypotensive not requiring vasopressors but is still on high flow oxygen for his acute lung injury. He has had fevers but down to 99.9 still feels poorly and has significant pain of the left foot and ankle area. 10/15/2017 the patient had deterioration of his respiratory status last night with his acute lung injury and developing early ARDS. He required intubation with sedation and mechanical ventilation. With improved sedation he is quite comfortable today and is synchronous with the vent with adequate oxygenation and improved blood gas. The patient is quite comfortable at this time and receiving tube feeds for his nutritional needs. Fever and leukocytosis are trending down 10/16/2017 is noted the patient remains ventilated as well as with intubation and sedation. He is quite comfortable today. Has been taking back to the operating room for further evaluation of the medial aspect of the right ankle, some infected bone was debrided but no further extensive pockets of purulence were found. Wound VAC applied. 10/17/2017 patient has had a weaning trial today but it was not successful in counseling. Remains intubated sedated and mechanically ventilated. He does to do quite comfortable. Wound vacs are in place after the debridement of yesterday to the left foot. Fever has trended down and he is hemodynamically stable 10/18/2017 the patient had an attempt for a weaning trial but this however did not go well the patient became significantly hypertensive. With multiple medications this is now settled. Today the wound vacs will be changed further care will be given. Is much more calm this afternoon and hopefully further weaning trials will go well over the next few days. The fever has resolved and there is now a negative blood culture. 2017 patient remains in ICU intubated sedated and paralyzed due to the ARDS which is resulting in fdc respiratory failure. Objective - Vital Signs Vital signs: Vital Signs Temp 98.1 F 10/21/17 20:00 Pulse 74 10/21/17 22:00 Resp 26 H 10/21/17 22:00 BP 125/59 10/21/17 14:30 Pulse Ox 98 10/21/17 22:00 Intake & Output 10/21/17 10/21/17 10/22/17 06:59 18:59 06:59 Intake Total 5762.880 9921.831 285.897 Output Total 1345 1725 520 Balance 493.018 -289.169 -234.103 Weight 160.1 kg 160.1 kg Intake: IV 110 10 60 0.9 NS 110 10 60 Intake, IV Titration 9055.747 2452.831 125.897 Amount Cisatracurium 200 mg In 499.843 Sodium Chloride 0.9% 180 ml @ 1 MCG/KG/MIN 9.69 mls/hr IV .[id number] [facility] Rx #:[id number] Clevidipine Butyrate 25 335.733 151.948 mg In Empty Bag 1 bag @ 1 MG/HR 2 mls/hr IV .Q24H [facility] Rx#:[id number] Insulin Regular 100 unit 202.655 75.416 25.897 In Sodium Chloride 0.9% 100 ml @ Per Protocol IV .Q0M [facility] Rx#:[id number] Propofol 1,000 mg In 799.63 498.624 100 Empty Bag 1 bag @ Per Protocol IV .Q0M [facility] Rx#: [id number] Oral 60 Tube Feeding 300 140 100 Other 90 Output: Urine 1345 1725 520 Other: Voiding Method Indwelling Catheter Indwelling Catheter # Voids 1 # Bowel Movements 1 ABP, PAP, CO, CI - Last Documented Arterial Blood Pressure 136/61 - Exam 52-year-old male presents to Hospital feeling acutely ill found to have evidence of fever and then rapidly developed sepsis, HEENT: Anicteric conjunctiva are pink and moist nasal mucosa grossly intact without significant lesions, patient is now intubated and sedated Neck: The neck is supple without significant lymphadenopathy or thyromegaly. Lungs: Good bilateral air entry with harsh breath sounds Heart: Tachycardic but regular with an audible S1 and S2 soft S4 There is no significant murmur click or rub, PMI was nondisplaced. Abdomen: Obese Positive bowel sounds soft and nontender without palpable masses or organomegaly. There was no guarding or rebound. Extremities: The upper extremities have excellent pulses they are symmetric, no significant petechiae or telangiectasia. No splinter hemorrhages were noted. Right lower extremity has evidence of the prior great toe amputation which is well healed. Left lower extremity reveals evidence of the surgical incision and drainage performed in the wound VAC is in place. There is still some swelling but the extensive swelling at the ankle has started to improve. There is no inguinal lymphadenopathy. Neuro: Sedated,paralyzed and mechanically ventilated - Labs CBC & Chem 7: 10/21/17 06:00 10/21/17 06:00 Labs: Abnormal Lab Results - Last 24 Hours (Table) 10/21/17 10/21/17 10/21/17 Range/Units 00:00 01:42 03:46 WBC (3.8-10.6) k/uL RBC (4.30-5.90) m/uL Hgb (13.0-17.5) gm/dL Hct (39.0-53.0) % Plt Count (150-450) k/uL Neutrophils # (Manual) (1.3-7.7) k/uL Myelocytes # (Manual) (0) k/uL ABG pH (7.35-7.45) ABG pCO2 (35-45) mmHg ABG pO2 (83-108) mmHg ABG HCO3 (21-25) mmol/L ABG Total CO2 (19-24) mmol/L ABG O2 Saturation (94-97) % BUN (9-20) mg/dL Glucose (74-99) mg/dL POC Glucose (mg/dL) 202 H 219 H 207 H (75-99) mg/dL Phosphorus (2.5-4.5) mg/dL 10/21/17 10/21/17 10/21/17 Range/Units 04:57 05:53 06:00 WBC 16.4 H (3.8-10.6) k/uL RBC 3.63 L (4.30-5.90) m/uL Hgb 10.3 L (13.0-17.5) gm/dL Hct 32.7 L (39.0-53.0) % Plt Count 462 H (150-450) k/uL Neutrophils # (Manual) 13.45 H (1.3-7.7) k/uL Myelocytes # (Manual) 0.66 H (0) k/uL ABG pH 7.32 L (7.35-7.45) ABG pCO2 53 H (35-45) mmHg ABG pO2 69 L (83-108) mmHg ABG HCO3 27 H (21-25) mmol/L ABG Total CO2 29 H (19-24) mmol/L ABG O2 Saturation 93.8 L (94-97) % BUN (9-20) mg/dL Glucose (74-99) mg/dL POC Glucose (mg/dL) 190 H (75-99) mg/dL Phosphorus (2.5-4.5) mg/dL 10/21/17 10/21/17 10/21/17 Range/Units 06:00 06:57 08:11 WBC (3.8-10.6) k/uL RBC (4.30-5.90) m/uL Hgb (13.0-17.5) gm/dL Hct (39.0-53.0) % Plt Count (150-450) k/uL Neutrophils # (Manual) (1.3-7.7) k/uL Myelocytes # (Manual) (0) k/uL ABG pH (7.35-7.45) ABG pCO2 (35-45) mmHg ABG pO2 (83-108) mmHg ABG HCO3 (21-25) mmol/L ABG Total CO2 (19-24) mmol/L ABG O2 Saturation (94-97) % BUN 25 H (9-20) mg/dL Glucose 189 H (74-99) mg/dL POC Glucose (mg/dL) 185 H 172 H (75-99) mg/dL Phosphorus 5.4 H (2.5-4.5) mg/dL 10/21/17 10/21/17 10/21/17 Range/Units 09:08 09:57 11:06 WBC (3.8-10.6) k/uL RBC (4.30-5.90) m/uL Hgb (13.0-17.5) gm/dL Hct (39.0-53.0) % Plt Count (150-450) k/uL Neutrophils # (Manual) (1.3-7.7) k/uL Myelocytes # (Manual) (0) k/uL ABG pH (7.35-7.45) ABG pCO2 (35-45) mmHg ABG pO2 (83-108) mmHg ABG HCO3 (21-25) mmol/L ABG Total CO2 (19-24) mmol/L ABG O2 Saturation (94-97) % BUN (9-20) mg/dL Glucose (74-99) mg/dL POC Glucose (mg/dL) 178 H 164 H 156 H (75-99) mg/dL Phosphorus (2.5-4.5) mg/dL 10/21/17 10/21/17 10/21/17 Range/Units 13:26 14:01 15:05 WBC (3.8-10.6) k/uL RBC (4.30-5.90) m/uL Hgb (13.0-17.5) gm/dL Hct (39.0-53.0) % Plt Count (150-450) k/uL Neutrophils # (Manual) (1.3-7.7) k/uL Myelocytes # (Manual) (0) k/uL ABG pH (7.35-7.45) ABG pCO2 (35-45) mmHg ABG pO2 (83-108) mmHg ABG HCO3 (21-25) mmol/L ABG Total CO2 (19-24) mmol/L ABG O2 Saturation (94-97) % BUN (9-20) mg/dL Glucose (74-99) mg/dL POC Glucose (mg/dL) 138 H 153 H 141 H (75-99) mg/dL Phosphorus (2.5-4.5) mg/dL 10/21/17 10/21/17 10/21/17 Range/Units 16:06 17:07 17:15 WBC (3.8-10.6) k/uL RBC (4.30-5.90) m/uL Hgb (13.0-17.5) gm/dL Hct (39.0-53.0) % Plt Count (150-450) k/uL Neutrophils # (Manual) (1.3-7.7) k/uL Myelocytes # (Manual) (0) k/uL ABG pH (7.35-7.45) ABG pCO2 (35-45) mmHg ABG pO2 (83-108) mmHg ABG HCO3 (21-25) mmol/L ABG Total CO2 (19-24) mmol/L ABG O2 Saturation (94-97) % BUN (9-20) mg/dL Glucose (74-99) mg/dL POC Glucose (mg/dL) 128 H 154 H 152 H (75-99) mg/dL Phosphorus (2.5-4.5) mg/dL 10/21/17 10/21/17 10/21/17 Range/Units 18:16 19:00 20:03 WBC (3.8-10.6) k/uL RBC (4.30-5.90) m/uL Hgb (13.0-17.5) gm/dL Hct (39.0-53.0) % Plt Count (150-450) k/uL Neutrophils # (Manual) (1.3-7.7) k/uL Myelocytes # (Manual) (0) k/uL ABG pH (7.35-7.45) ABG pCO2 (35-45) mmHg ABG pO2 (83-108) mmHg ABG HCO3 (21-25) mmol/L ABG Total CO2 (19-24) mmol/L ABG O2 Saturation (94-97) % BUN (9-20) mg/dL Glucose (74-99) mg/dL POC Glucose (mg/dL) 139 H 138 H 143 H (75-99) mg/dL Phosphorus (2.5-4.5) mg/dL 10/21/17 Range/Units 21:20 WBC (3.8-10.6) k/uL RBC (4.30-5.90) m/uL Hgb (13.0-17.5) gm/dL Hct (39.0-53.0) % Plt Count (150-450) k/uL Neutrophils # (Manual) (1.3-7.7) k/uL Myelocytes # (Manual) (0) k/uL ABG pH (7.35-7.45) ABG pCO2 (35-45) mmHg ABG pO2 (83-108) mmHg ABG HCO3 (21-25) mmol/L ABG Total CO2 (19-24) mmol/L ABG O2 Saturation (94-97) % BUN (9-20) mg/dL Glucose (74-99) mg/dL POC Glucose (mg/dL) 162 H (75-99) mg/dL Phosphorus (2.5-4.5) mg/dL Microbiology - Last 24 Hours (Table) 10/17/17 05:50 Blood Culture - Preliminary Blood No Growth after 96 hours 10/17/17 04:07 Blood Culture - Preliminary Blood No Growth after 96 hours Laboratory Results WBC 16.4 k/uL (3.8-10.6) H 10/21/17 06:00 RBC 3.63 m/uL (4.30-5.90) L 10/21/17 06:00 Hgb 10.3 gm/dL (13.0-17.5) L 10/21/17 06:00 Hct 32.7 % (39.0-53.0) L 10/21/17 06:00 MCV 90.1 fL (80.0-100.0) 10/21/17 06:00 MCH 28.3 pg (25.0-35.0) 10/21/17 06:00 MCHC 31.4 g/dL (31.0-37.0) 10/21/17 06:00 RDW 14.1 % (11.5-15.5) 10/21/17 06:00 Plt Count 462 k/uL (150-450) H 10/21/17 06:00 Neutrophils % 81 % 10/18/17 05:00 Neutrophils % (Manual) 82 % 10/21/17 06:00 Band Neutrophils % 8 % 10/20/17 05:00 Lymphocytes % 10 % 10/18/17 05:00 Lymphocytes % (Manual) 9 % 10/21/17 06:00 Monocytes % 4 % 10/18/17 05:00 Monocytes % (Manual) 5 % 10/21/17 06:00 Eosinophils % 3 % 10/18/17 05:00 Eosinophils % (Manual) 3 % 10/20/17 05:00 Basophils % 1 % 10/18/17 05:00 Basophils % (Manual) 1 % 10/20/17 05:00 Metamyelocytes % 4 % 10/20/17 05:00 Myelocytes % 4 % 10/21/17 06:00 Neutrophils # 16.1 k/uL (1.3-7.7) H 10/18/17 05:00 Neutrophils # (Manual) 13.45 k/uL (1.3-7.7) H 10/21/17 06:00 Lymphocytes # 2.0 k/uL (1.0-4.8) 10/18/17 05:00 Lymphocytes # (Manual) 1.48 k/uL (1.0-4.8) 10/21/17 06:00 Monocytes # 0.8 k/uL (0-1.0) 10/18/17 05:00 Monocytes # (Manual) 0.82 k/uL (0-1.0) 10/21/17 06:00 Eosinophils # 0.7 k/uL (0-0.7) 10/18/17 05:00 Eosinophils # (Manual) 0.53 k/uL (0-0.7) 10/20/17 05:00 Basophils # 0.1 k/uL (0-0.2) 10/18/17 05:00 Basophils # (Manual) 0.18 k/uL (0-0.2) 10/20/17 05:00 Metamyelocytes # (Man) 0.70 k/uL (0) H 10/20/17 05:00 Myelocytes # (Manual) 0.66 k/uL (0) H 10/21/17 06:00 Nucleated RBCs 0 /100 WBC (0-0) 10/21/17 06:00 Manual Slide Review Performed 10/21/17 06:00 Toxic Granulation Present 10/20/17 05:00 Large Platelets Present 10/21/17 06:00 Polychromasia Present 10/21/17 06:00 Hypochromasia Slight 10/21/17 06:00 ESR 25 mm/hr (0-15) H 10/12/17 07:29 Sample Site epps 10/21/17 04:57 ABG pH 7.32 (7.35-7.45) L 10/21/17 04:57 ABG pCO2 53 mmHg (35-45) H 10/21/17 04:57 ABG pO2 69 mmHg (83-108) L 10/21/17 04:57 ABG HCO3 27 mmol/L (21-25) H 10/21/17 04:57 ABG Total CO2 29 mmol/L (19-24) H 10/21/17 04:57 ABG O2 Saturation 93.8 % (94-97) L 10/21/17 04:57 ABG Base Excess 1.3 mmol/L 10/21/17 04:57 Cr Test no 10/21/17 04:57 ABG Lactic Acid 1.0 mmol/L (0.5-1.6) 10/12/17 18:06 FiO2 70 % 10/21/17 04:57 Sodium 140 mmol/L (137-145) 10/21/17 06:00 Potassium 4.1 mmol/L (3.5-5.1) 10/21/17 06:00 Chloride 103 mmol/L (98-107) 10/21/17 06:00 Carbon Dioxide 27 mmol/L (22-30) 10/21/17 06:00 Anion Gap 10 mmol/L 10/21/17 06:00 BUN 25 mg/dL (9-20) H 10/21/17 06:00 Creatinine 0.90 mg/dL (0.66-1.25) 10/21/17 06:00 Est GFR (CKD-EPI)AfAm >90 (>60 ml/min/1.73 sqM) 10/21/17 06:00 Est GFR (CKD-EPI)NonAf >90 (>60 ml/min/1.73 sqM) 10/21/17 06:00 Glucose 189 mg/dL (74-99) H 10/21/17 06:00 POC Glucose (mg/dL) 145 mg/dL (75-99) H 10/21/17 22:17 POC Glu Regulatory Auditor ID Perez Quevedo 10/21/17 22:[address] Glu mg/dL 214 10/12/17 07:29 Hemoglobin A1c 9.1 % (4.0-6.0) H 10/12/17 07:29 Plasma Lactic Acid Ron 1.5 mmol/L (0.7-2.0) 10/11/17 21:10 Uric Acid 5.6 mg/dL (3.5-8.5) 10/11/17 21:10 Calcium 9.3 mg/dL (8.4-10.2) 10/21/17 06:00 Phosphorus 5.4 mg/dL (2.5-4.5) H 10/21/17 06:00 Magnesium 2.2 mg/dL (1.6-2.3) 10/21/17 06:00 AST 96 U/L (17-59) H 10/13/17 19:55 ALT 58 U/L (21-72) 10/13/17 19:55 C-Reactive Protein 45.1 mg/L (<10.0) H 10/11/17 21:10 Urine Color Yellow 10/15/17 11:30 Urine Appearance Clear (Clear) 10/15/17 11:30 Urine pH 6.0 (5.0-8.0) 10/15/17 11:30 Ur Specific [place] 1.018 (1.001-1.035) 10/15/17 11:30 Urine Protein 1+ (Negative) H 10/15/17 11:30 Urine Glucose (UA) 3+ (Negative) H 10/15/17 11:30 Urine Ketones Negative (Negative) 10/15/17 11:30 Urine Blood Small (Negative) H 10/15/17 11:30 Urine Nitrite Negative (Negative) 10/15/17 11:30 Urine Bilirubin Negative (Negative) 10/15/17 11:30 Urine Urobilinogen <2.0 mg/dL (<2.0) 10/15/17 11:30 Ur Leukocyte Esterase Negative (Negative) 10/15/17 11:30 Urine RBC <1 /hpf (0-5) 10/15/17 11:30 Urine WBC 3 /hpf (0-5) 10/15/17 11:30 Urine Mucus Rare /hpf (None) H 10/15/17 11:30 Blood Type O Positive 10/21/17 13:30 Blood Type Recheck No 10/21/17 13:30 Antibody Screen NEGATIVE 10/21/17 13:30 Spec Expiration Date 10/24/2017232910/21/17 13:30 Microbiology 10/17/17 05:50 Blood Blood Culture - Preliminary No Growth after 96 hours 10/17/17 04:07 Blood Blood Culture - Preliminary No Growth after 96 hours 10/15/17 05:15 Sputum Gram Stain - Final 10/15/17 05:15 Sputum Sputum Culture - Final Jayne albicans 10/13/17 08:45 Blood Blood Culture Gram Stain - Final 10/13/17 08:45 Blood Blood Culture - Final Staphylococcus aureus 10/12/17 19:48 Ankle - Left Anaerobic Culture - Final 10/12/17 19:48 Ankle - Left Anaerobic Culture - Final 10/13/17 07:25 Blood Blood Culture Gram Stain - Final 10/13/17 07:25 Blood Blood Culture - Final Staphylococcus aureus 10/12/17 19:48 Ankle - Left Gram Stain - Final 10/12/17 19:48 Ankle - Left Wound Culture - Final Staph aureus 10/12/17 19:48 Ankle - Left Gram Stain - Final 10/12/17 19:48 Ankle - Left Wound Culture - Final Staphylococcus aureus 10/12/17 09:27 Synovial Fluid Gram Stain - Final 10/12/17 09:27 Synovial Fluid Body Fluid Culture - Final Staphylococcus aureus 10/13/17 07:25 Blood Blood Culture - Final 10/13/17 08:45 Blood Blood Culture - Final 10/11/17 21:15 Blood Blood Culture Gram Stain - Final 10/11/17 21:15 Blood Blood Culture - Final Staphylococcus aureus 10/11/17 21:15 Blood Blood Culture - Final Assessment and Plan (1) Septic arthritis of left ankle Narrative/Plan: 52-year-old male presents the emergency center with inability to bear weight to his left ankle. The patient has had some new orthotic boot manufactured in a developed a small ulcer on the dorsum of the left foot. This apparently was from a grommet from an orthotic. This was completely healed and was evaluated but was still having ongoing difficulties with ankle area. Is actively following up with orthopedic foot and ankle. The patient does have a boot that was designed that he was not wearing when he came to the office and understands it is important that he wears this when he is at work to protect his ankle from the [place]arc[place] changes. Patient however now has high-grade fever chills leukocytosis and laboratories: Positive blood culture with gram-positive cocci. The patient did have aspiration per orthopedic ankle grossly purulent material was found. Originally the plan was to go to the operating him in the morning but as the patient felt worsening sepsis he is no scheduled operating room this afternoon for the incision and drainage of this abscess. Deep cultures and pathology will also be sent. Antibiotic therapy is altered from vancomycin to daptomycin. In hopes to have a more rapid bacteriocidal activity given his rapidly declining status. Enhance glucose control be important part of his healing. Leukocytosis record related to his current sepsis. There is evidence of possible culture and he will require follow blood cultures in the morning. He was monitored for any persistence of his bacteremia. There will be a coordinated effort between orthopedic ankle and infectious disease as to the care at discharge. 10/13/2017 reveals the patient still needs intensive care unit after surgery with ongoing sepsis. Continues to have fever and leukocytosis and difficulties with acute lung injury and now elevated creatinine to 2.0. Patient continues to be resuscitated and has had some improvement but minimal at this point in time. He will continue with maneuvers to improve his fever maintain his hydration and antibiotic therapy continues with daptomycin for both staph aureus and MRSA, blood culture and aspirate from the ankle are still showing staph aureus final susceptibility is pending. Patient aware that if he improves he will be receiving a jg completed a long course of IV antibiotic therapy for this extensive infection. Leukocytosis directly related to the sepsis 10/14/2017 the patient remains in intensive care unit, high flow oxygen is being utilized for his acute lung injury. His creatinine has increased further is now 2.0. Urine output is adequate. He is symptomatically stable is having difficulties with shortness of breath. Pain at the foot and ankle is predictable but the significant swelling history improving after surgical incision and drainage. Ulceration is treated with a medical history dressing. If there is no further marked improvement by tomorrow the patient will likely go back to the operating him for further incision and drainage to the site. The case is discussed with the orthopedic surgeon. 10/15/2017 the patient is noted had a decline of his status and his required intubation with sedation mechanical ventilation and is now much more comfortable. His pulmonary status is improved with the intervention. He has not requiring vasopressor therapy. We'll do blood cultures verified MSSA and antibiotic therapy was transitioned to high dose cefazolin. The patient is evaluated in conjunction with the orthopedic surgeon and the plan is for the patient to have further debridement of the ankle tomorrow to ensure there is complete drainage of any abscess at that joint site given the progression of his underlying illness. Fortunately he has not hemodynamic stable and is having improvement of his leukocytosis. We'll expect as a sepsis improves his pulmonary injury will improve also. His creatinine peaked at 2.10 now down to 2.0 and nephrology has evaluated. Follow blood cultures to ensure clearance of his bacteremia. Echocardiogram without evidence of vegetations. Is not the case is discussed with the orthopedic surgeon as well as the patient' s . 10/16/2017 the patient's been taking to the operating room today for further debridement of the left ankle. Some necrotic bone was debrided but no further large pockets of abscess were seen. Wound vacs are applied. We'll continue his high-dose antibiotic therapy for his MSSA infection from the septic arthritis left ankle. There are several evidences of improvement today, still requires no vasopressor therapy. We'll expect as he starting to improve we need to start in the next day or so. Once he is evidence of clearance of his bacteremia will need IV access placed for his long-term IV antibiotic therapy. 10/17/2017 patient is hemodynamically stable without acute no difficulties today. He over did not do well with a weaning trial. Will be tried on a daily basis as per the loan specialist. He is hemodynamic stable and his adequate urinary output. We'll continue high-dose cefazolin and supportive care. It is likely that the wound vacs removed tomorrow with further evaluation of the ankle wounds at that time. Supportive care continues he's had a slight improvement of his creatinine and his sodium is improving. 10/18/2017 the patient remains medically stable and that her vasopressor therapy. Insulin drip is reduced. He did not do well with weaning trial today with significant hypertensive response. With the medications is better at this time. Acute renal failure has resolved leukocytosis is trending to improvement. And there is no negative blood culture from October 17. If the patient improves we'll transition to alternative IV access was for a dual lumen PICC line to be placed this will help us transition to his outpatient intravenous antibiotic therapy when he is improved. The wound VAC is removed at this point in time. Saline moistened opticell silver is applied without difficulty. This will be changed every other day. Pulmonary critical care will continue to move toward extubation. 10/21/2017 patient continues to have respiratory failure 10/21/2017 patient continues to have respiratory failure with ongoing intubation sedation and mechanical ventilation he is hemodynamically stable. Remains on insulin drip. Vital respiratory failure the patient will undergo tracheostomy and PEG tube placement later this week. Current Visit: Yes Status: Acute Code(s): M00.9 - PYOGENIC ARTHRITIS, UNSPECIFIED SNOMED Code(s): 56282678 (2) Sepsis Current Visit: Yes Status: Acute Priority: Medium Code(s): A41.9 - SEPSIS , UNSPECIFIED ORGANISM SNOMED Code(s): 67622194 (3) Poorly controlled type 2 diabetes mellitus with complication Current Visit: Yes Status: Chronic Code(s): E11.8 - TYPE 2 DIABETES MELLITUS WITH UNSPECIFIED COMPLICATIONS; E11.65 - TYPE 2 DIABETES MELLITUS WITH HYPERGLYCEMIA SNOMED Code(s): 93935114
[2017-10-21 23:08] LABS: Glucose,Whole Blood 138 mg/dL (75-99)
[2017-10-22 00:11] LABS: Glucose,Whole Blood 133 mg/dL (75-99)
[2017-10-22] MEDS: ceFAZolin IN SWFI 2 GM/20 ML SYRINGE IVP SCH ×3 (00:30→15:31)
[2017-10-22] MEDS: ARTIFICIAL TEARS-HYPROMELLOSE DROPS 15 ML BTL BOTH EYES SCH ×6 (00:30→20:19)
[2017-10-22] MEDS: METOCLOPRAMIDE 5 MG/ML 2 ML VIAL IVP SCH ×4 (00:30→17:47)
[2017-10-22] MEDS: HEPARIN SODIUM,PORCINE 5,000 UNIT/ML 1 ML VIAL SQ SCH ×3 (00:30→15:30)
[2017-10-22 01:05] LABS: Glucose,Whole Blood 129 mg/dL (75-99)
[2017-10-22 02:01] LABS: Glucose,Whole Blood 108 mg/dL (75-99)
[2017-10-22] MEDS: PROPOFOL 1,000 MG in EMPTY BAG 1 BAG IV SCH ×12 (02:09→23:41)
[2017-10-22] MEDS: IPRATROPIUM-ALBUTEROL 3 ML NEB INHALATION SCH ×6 (03:06→23:04)
[2017-10-22] MEDS: MORPHINE SULFATE 4 MG/ML SYRINGE IVP PRN ×6 (03:11→21:16)
[2017-10-22 03:21] LABS: Glucose,Whole Blood 137 mg/dL (75-99)
[2017-10-22] MEDS: CISATRACURIUM 200 MG in SODIUM CHLORIDE 0.9% 180 ML IV SCH ×5 (04:00→23:42)
[2017-10-22 04:02] LABS: Glucose,Whole Blood 138 mg/dL (75-99)
[2017-10-22 04:26] LABS: Anion Gap 9 mmol/L; Blood Urea Nitrogen 27 mg/dL (9-20); Carbon Dioxide 27 mmol/L (22-30); Chloride 105 mmol/L (98-107); Glucose 140 mg/dL (74-99); Potassium 4.4 mmol/L (3.5-5.1); Sodium 141 mmol/L (137-145)
[2017-10-22 05:11] LABS: ABG Base Excess 1.5 mmol/L; ABG HCO3 27 mmol/L (21-25); ABG Oxygen Saturation 99.2 % (94-97); ABG PCO2 48 mmHg (35-45); ABG PH 7.36 (7.35-7.45); ABG PO2 139 mmHg (83-108); ABG TCO2 29 mmol/L (19-24)
[2017-10-22] MEDS: INSULIN REGULAR 100 UNIT in SODIUM CHLORIDE 0.9% 100 ML IV SCH ×3 (05:14→23:41)
[2017-10-22 05:16] LABS: Glucose,Whole Blood 167 mg/dL (75-99)
[2017-10-22] MEDS: LABETALOL 5 MG/ML VIAL MDV IVP PRN ×5 (05:28→20:40)
[2017-10-22 05:55] LABS: Glucose,Whole Blood 157 mg/dL (75-99)
[2017-10-22] MEDS: LEVOTHYROXINE IVP 100 MCG/5 ML VIAL IV SCH (06:15)
--- NOTE | 2017-10-22 07:06 | P.PN ---
Subjective Progress Note Date: 10/22/17 Principal diagnosis: Sepsis and left foot infection with mental status changes Progress note dated 10/19/2017 This is a 52-year-old male with acute hypoxemic respiratory failure secondary to sepsis. He was admitted with a diagnosis of Septic Arthritis Involving the Left Ankle and He Status Post Left Ankle Irrigation and Debridement. He's Postop Day #7. He Wanted Month for Another Irrigation and Debridement, on 10/16 and Is Postop Day #3. Today We Did a Daily Eruption of Sedation. Unfortunately He Did Very Poorly. He Was Not Ready for a Spontaneous Breathing Trial. The patient has a history of acute severe sepsis with positive blood cultures for methicillin sensitive staph aureus, altered mental status acute hypoxemic and hypercapnic respiratory failure with mild ARDS, diabetes mellitus peripheral neuropathy chronic wounds and ulcerations of lower extremities Charcot joints of morbid obesity hypertension hyperlipidemia hypothyroidism acute kidney injury and hypernatremia. I had a long talk with the family today. The understand that by mid next week if the patient does not show improvement, would likely send patient for a tracheostomy and PEG tube. Progress note dated 10/20/2017 A 52-year-old male with a history of acute hypoxemic respiratory failure secondary to sepsis. The patient was admitted with a diagnosis of septic arthritis involving the left ankle and he is status post left ankle irrigation and debridement, postop day #8. He also had an irrigation and debridement a second time and for that when he is postop day #4. The patient had a daily eruption of sedation yesterday and unfortunately did very poorly and again today he had daily eruption of sedation and again did very poorly. His respiratory rate was quite high. Heart rate was very high. The patient went very high. He was not responsive. The patient does not follow simple commands. He may eventually need a tracheostomy and PEG tube placement. I did have a long discussion with his yesterday. In addition, the patient is positive blood culture for methicillin sensitive staph aureus mental status changes acute hypoxemic and hypercapnic respiratory failure mild ARDS based on a PaO2/FiO2 ratio, diabetes peripheral neuropathy chronic wounds and ulcerations of lower extremities Charcot joints morbid obesity hypertension hyperlipidemia hypothyroidism acute kidney injury and hypernatremia. I did mention tracheostomy and PEG tube yesterday with the . Again, the patient has shown no significant improvement over the last 48 hours. Chest x-ray is unchanged. Microbiology is reviewed. White count 17.5, hemoglobin 10.4 platelet count normal. Arterial blood gases show a PaO2 of 74 a PaCO2 of 38 and pH is 7.44. Sodium is 139 potassium 3.8 chloride is 105 CO2 23 BUN and creatinine 24 and 0.78 respectively. The patient's vent settings are the volume assist control mode, rate of 26, tidal volume 500, FiO2 50% and PEEP of 8. The patient's currently on propofol at 50 mics per kilogram per minute, Cleviprex at 21 mg per hour and a D5W IV at KVO. The patient is receiving vital high protein at 20 with a goal of 20. Progress note dated 10/21/2017 52-year-old male with a history of acute hypoxemic respiratory failure secondary to sepsis. The patient was admitted with a diagnosis of septic arthritis involving the left ankle many status post left ankle irrigation and debridement, postop day #9. He also had a second irrigation and he is postop day #5 on that one. Unfortunately, over the weekend, the patient has made no progress in yesterday because of worsening respiratory status, the patient had to be paralyzed. He was given Nimbex 10 mg IV and started on a Nimbex drip. We 'll do [id number] monitoring. Also, yesterday we had issues with his heart rate and blood pressure. We had added some labetalol to his Cleviprex. Finally , the patient's oxygenation worsened suggesting is acute respiratory distress syndrome has worsened. Currently on 70% FiO2 and 12 of PEEP. I did have a long discussion with the on Saturday. I explained that he probably end up with a tracheostomy and PEG tube placed. I will ask the thoracic surgeon about that today. Blood cultures are positive multiple times for methicillin sensitive staph aureus. The patient does have a history of Charcot joints morbid obesity hypertension hyperlipidemia hypothyroidism acute kidney injury and hypernatremia. Currently, the patient's vent settings are the assist control mode rate of 26 tidal volume 500 FiO2 70% PEEP of 12 blood gases show a PaO2 of 69 and a PaCO2 of 53 and a pH 7.32. The patient is on Nimbex at 3 mics per kilogram per minute, propofol 60 mikes per kilogram per minute, Cleviprex at 14 mg an hour, insulin 16 units an hour saline IV at 20 mL an hour and vital high protein and rate of 20 with a goal of 20 mL per hour. Needless to say, the patient's very critically ill. Progress note dated 10/22/2017 52-year-old male with a history of acute hypoxemic respiratory failure secondary to sepsis. The patient was admitted initially admitted with a diagnosis of septic arthritis involving the left ankle and he status post left ankle irrigation and debridement, postop day #10 he had a second procedure done and on that procedure he is postop day #6. The patient has made no progress on the ventilator. I did ask the thoracic surgeon to see him for a tracheostomy and PEG tube placement. She oxygenation and dyssynchronous with the ventilator , the patient was paralyzed. We've also some additional blood pressure control. His blood pressure has been high despite maximal doses of Cleviprex and labetalol IV. Anyway, the patient is scheduled for a tracheostomy and PEG tube on Saturday. This been no changes in his status since that time. The patient has a history of multiple positive blood cultures for methicillin sensitive staph aureus. He does have a history of Charcot joints, morbid obesity, hypertension, hyperlipidemia, hypothyroidism, acute kidney injury, and hypernatremia. Currently, the patient's on the volume assist control modality, rate is 26 tidal volume is 500 FiO2 70% PEEP of 12. Arterial blood gases show a PaO2 of 139 a PaCO2 40 and a pH of 7.36. If the FiO2 we dropped down to 55%. The patient receiving a saline IV at 20 mL an hour propofol 60 mikes per kilogram per minute insulin drip at 13 units per hour Nimbex at 4 mics per kilogram per minute vital high protein at 20 with a goal of 20 mL an hour and the Cleviprex is off. Sodium is 141 potassium 4.4 chloride 105 CO2 27 and BUN and creatinine is 27 0.79. CBC is pending Chest x-ray shows diffuse infiltrates with possible small effusions. Endotracheal tube in good position. Objective - Vital Signs Vital signs: Vital Signs Temp 98.8 F 10/22/17 04:00 Pulse 84 10/22/17 06:00 Resp 26 H 10/22/17 06:00 BP 125/59 10/21/17 14:30 Pulse Ox 98 10/22/17 06:00 Intake & Output 10/21/17 10/21/1710/22/18 06:59 18:59 06:59 Intake Total 2146.341 0148.831 1245.178 Output Total 1345 1725 1370 Balance 493.018 -289.169 -124.822 Weight 160.1 kg 160.1 kg Intake: IV 110 10 220 0.9 NS 110 10 220 Intake, IV Titration 8853.100 5160.831 665.178 Amount Cisatracurium 200 mg In 499.843 200 Sodium Chloride 0.9% 180 ml @ 1 MCG/KG/MIN 9.69 mls/hr IV .[id number] [facility] Rx #:[id number] Clevidipine Butyrate 25 335.733 151.948 mg In Empty Bag 1 bag @ 1 MG/HR 2 mls/hr IV .Q24H [facility] Rx#:[id number] Insulin Regular 100 unit 202.655 75.416 72.178 In Sodium Chloride 0.9% 100 ml @ Per Protocol IV .Q0M [facility] Rx#:[id number] Propofol 1,000 mg In 799.63 498.624 393 Empty Bag 1 bag @ Per Protocol IV .Q0M [facility] Rx#: [id number] Oral 60 Tube Feeding 300 140 300 Other 90 60 Output: Urine 1345 1725 1370 Other: Voiding Method Indwelling Catheter Indwelling Catheter Indwelling Catheter # Voids 1 # Bowel Movements 1 ABP, PAP, CO, CI - Last Documented Arterial Blood Pressure 147/59 - Exam No acute distress, sedated and paralyzed, with a endotracheal tube and NG tube noted HEENT examination is grossly unremarkable. Mucous membranes are moist. Neck supple. Full range of motion. No adenopathy thyromegaly or neck vein distention. Cardiovascular examination reveals regular rhythm rate. S1-S2 normal. No S3 or S4. No discernible murmur noted. Lungs reveal diminished breath sounds. Coarse bilateral rhonchi are noted. Breath sounds are equal bilaterally. No crackles. Abdomen soft bowel sounds are heard. No masses or tenderness. Extremities are intact. Both lower extremities are wrapped in Geoffrey wraps. Also examination cannot be done. Edema is clearly present though.. Skin is without rash or lesion. Neurologic examination could not be performed - Labs CBC & Chem 7: 10/21/17 06:00 10/22/17 04:00 Labs: Abnormal Lab Results - Last 24 Hours (Table) 04/30/18 04/30/18 04/30/18 Range/Units 06:57 08:11 09:08 ABG pCO2 (35-45) mmHg ABG pO2 (83-108) mmHg ABG HCO3 (21-25) mmol/L ABG Total CO2 (19-24) mmol/L ABG O2 Saturation (94-97) % BUN (9-20) mg/dL Glucose (74-99) mg/dL POC Glucose (mg/dL) 185 H 172 H 178 H (75-99) mg/dL 10/21/17 10/21/17 10/21/17 Range/Units 09:57 11:06 13:26 ABG pCO2 (35-45) mmHg ABG pO2 (83-108) mmHg ABG HCO3 (21-25) mmol/L ABG Total CO2 (19-24) mmol/L ABG O2 Saturation (94-97) % BUN (9-20) mg/dL Glucose (74-99) mg/dL POC Glucose (mg/dL) 164 H 156 H 138 H (75-99) mg/dL 10/21/17 10/21/17 10/21/17 Range/Units 14:01 15:05 16:06 ABG pCO2 (35-45) mmHg ABG pO2 (83-108) mmHg ABG HCO3 (21-25) mmol/L ABG Total CO2 (19-24) mmol/L ABG O2 Saturation (94-97) % BUN (9-20) mg/dL Glucose (74-99) mg/dL POC Glucose (mg/dL) 153 H 141 H 128 H (75-99) mg/dL 10/21/17 10/21/17 10/21/17 Range/Units 17:07 17:15 18:16 ABG pCO2 (35-45) mmHg ABG pO2 (83-108) mmHg ABG HCO3 (21-25) mmol/L ABG Total CO2 (19-24) mmol/L ABG O2 Saturation (94-97) % BUN (9-20) mg/dL Glucose (74-99) mg/dL POC Glucose (mg/dL) 154 H 152 H 139 H (75-99) mg/dL 10/21/17 10/21/17 10/21/17 Range/Units 19:00 20:03 21:20 ABG pCO2 (35-45) mmHg ABG pO2 (83-108) mmHg ABG HCO3 (21-25) mmol/L ABG Total CO2 (19-24) mmol/L ABG O2 Saturation (94-97) % BUN (9-20) mg/dL Glucose (74-99) mg/dL POC Glucose (mg/dL) 138 H 143 H 162 H (75-99) mg/dL 10/21/17 10/21/17 10/22/17 Range/Units 22:17 23:06 00:10 ABG pCO2 (35-45) mmHg ABG pO2 (83-108) mmHg ABG HCO3 (21-25) mmol/L ABG Total CO2 (19-24) mmol/L ABG O2 Saturation (94-97) % BUN (9-20) mg/dL Glucose (74-99) mg/dL POC Glucose (mg/dL) 145 H 138 H 133 H (75-99) mg/dL 10/22/17 10/22/17 10/22/17 Range/Units 01:03 01:59 03:20 ABG pCO2 (35-45) mmHg ABG pO2 (83-108) mmHg ABG HCO3 (21-25) mmol/L ABG Total CO2 (19-24) mmol/L ABG O2 Saturation (94-97) % BUN (9-20) mg/dL Glucose (74-99) mg/dL POC Glucose (mg/dL) 129 H 108 H 137 H (75-99) mg/dL 10/22/17 10/22/17 10/22/17 Range/Units 04:00 04:01 05:10 ABG pCO2 48 H (35-45) mmHg ABG pO2 139 H (83-108) mmHg ABG HCO3 27 H (21-25) mmol/L ABG Total CO2 29 H (19-24) mmol/L ABG O2 Saturation 99.2 H (94-97) % BUN 27 H (9-20) mg/dL Glucose 140 H (74-99) mg/dL POC Glucose (mg/dL) 138 H (75-99) mg/dL 10/22/17 10/22/17 Range/Units 05:10 05:53 ABG pCO2 (35-45) mmHg ABG pO2 (83-108) mmHg ABG HCO3 (21-25) mmol/L ABG Total CO2 (19-24) mmol/L ABG O2 Saturation (94-97) % BUN (9-20) mg/dL Glucose (74-99) mg/dL POC Glucose (mg/dL) 167 H 157 H (75-99) mg/dL Microbiology - Last 24 Hours (Table) 10/17/17 04:07 Blood Culture - Preliminary Blood No Growth after 120 hours 10/17/17 05:50 Blood Culture - Preliminary Blood No Growth after 96 hours Assessment and Plan Assessment: Assessment Acute septic arthritis of the left ankle, status post left ankle irrigation with debridement, postoperative day #9and subsequent irrigation did the debridement, postop day #5 Acute hypoxemic respiratory failure requiring intubation and mechanical ventilation with failure to wean from mechanical ventilation despite daily interruption of sedation and spontaneous breathing trial Failure to wean from mechanical ventilation, with anticipated tracheostomy tomorrow Acute severe sepsis with positive blood cultures for methicillin sensitive Staphylococcus Mental status changes, set secondary to sepsis encephalopathy ARDS with a PF ratio of 263 Diabetes mellitus with poor sugar control Severe peripheral neuropathy History of chronic wounds and ulcerations of the lower extremities with cellulitis Charcot joints Morbid obesity Hypertension Hyperlipidemia Hypothyroidism Acute kidney injury Hypernatremia Plan: Plan dated 10/19/2017 The patient did have a daily eruption of sedation and a spontaneous breathing trial. His mental status was poor. His heart rate went up quite high with increased respiratory rate and blood pressure. The patient's mental status was poor as I mention that he was not ready for extubation. I did have a long talk with the family. They do understand that the patient may end up requiring a tracheostomy and PEG tube. He'll continue on antibiotics. No additional recommendations are made. Prognosis is poor. We will use Cleviprex for blood pressure control. We will discontinue all the other medications that were being used for blood pressure. She can titrate off of Plavix better. We sedate the patient. We will use a small amount of narcotic. Additional sedation. We'll place the patient back on the mechanical ventilator. We'll resume nutrition. Additional recommendations and suggestions are forthcoming. Plan dated 10/20/2017 Again the patient had a daily eruption of sedation and did very poorly. He was not a candidate for spontaneous breathing trial. He remains on Cleviprex at a relatively higher dose for blood pressure control and propofol. The patient is getting nutrition. I did talk to the yesterday. I let her know that the patient was not doing well and may be headed towards tracheostomy and PEG tube placement. He remains on updrafts every 4 [id number]. Not able to be weaned today. The patient blood pressure 1 of over 200 and his respiratory rate went up over 40 on holding of sedation. Chest x-ray stable. No additional recommendations are made. Prognosis is guarded. And he may end up with a trach and PEG. Critical care time 33 minutes Plan dated 10/21/2017 The patient did miserably over the weekend. Showed no progress with his daily interruption of sedation. The patient had to be paralyzed her. In addition, the patient needed additional blood pressure medication for blood pressure control. We will consult the thoracic surgeon for PEG and tracheostomy tube. Overall prognosis is poor he continues on all appropriate medications. Superflous and unnecessary medications are discontinued. The patient will continue on Nimbex propofol Cleviprex insulin and nutrition Critical care time 37 minutes Plan dated 10/22/2017 The patient continues to do poorly. By P/F criteria, he does have ARDS. The patient's FiO2 though, could be dropped to 55% today. He remains on PEEP of 12. The patient will likely have a tracheostomy and PEG tube done tomorrow. I did speak to the yesterday. She understands prognosis. The patient remained on number different medications including propofol insulin Nimbex. Cleviprex his been weaned off. He's continuing to receive nutrition. Labs and x-rays are reviewed. Again prognosis is very poor. Critical care time 38 minutes Time with Patient: Greater than 30
[2017-10-22 07:11] LABS: Glucose,Whole Blood 151 mg/dL (75-99)
[2017-10-22 07:12] LABS: HCT 29.4 % (39.0-53.0); HGB 9.2 gm/dL (13.0-17.5); Hypochromasia Moderate; MCHC 31.2 g/dL (31.0-37.0); Mean Platelet Volume 9.4; Platelet Count 441 k/uL (150-450); RBC 3.26 m/uL (4.30-5.90); RDW 14.2 % (11.5-15.5); WBC 15.6 k/uL (3.8-10.6)
[2017-10-22 07:26] LABS: Magnesium 2.1 mg/dL (1.6-2.3)
--- NOTE | 2017-10-22 07:51 | XR ---
EXAMINATION TYPE: XR chest 1V portable DATE OF EXAM: 10/22/2017 CLINICAL HISTORY: Difficulty breathing progress study. TECHNIQUE: Single AP portable semiupright view of the chest is obtained. COMPARISON: Chest x-ray from one day earlier and older studies. FINDINGS: And endotracheal tube, orogastric tube, and right-sided PICC line are stable in appearance . There is interval removal of left internal jugular central venous catheter. Cardiac silhouette size is stable and mildly enlarged with central vascular congestion and bibasilar opacity redemonstrated. No sizable pneumothorax is seen. Visualized osseous structures are intact. Ov erlying EKG wires are redemonstrated. Somewhat low lung volumes are again seen. IMPRESSION: There is interval removal of left-sided central venous catheter. There is persistent low lung volumes, mild cardiomegaly, central vascular congestion, and likely small bilateral pleural effu sions with associated bibasilar atelectasis and/or infiltrate all redemonstrated.
[2017-10-22] MEDS: FUROSEMIDE 10 MG/ML 2 ML VIAL IV SCH (08:11)
[2017-10-22] MEDS: CHLORHEXIDINE GLUCONATE 15 ML CUP MUCOUS MEM SCH ×2 (08:11→20:19)
[2017-10-22] MEDS: PANTOPRAZOLE 40 MG/10 ML VIAL IV SCH (08:11)
[2017-10-22 08:12] LABS: Glucose,Whole Blood 148 mg/dL (75-99)
[2017-10-22 09:05] LABS: Glucose,Whole Blood 138 mg/dL (75-99)
[2017-10-22 10:01] LABS: Glucose,Whole Blood 137 mg/dL (75-99)
[2017-10-22 11:02] LABS: Glucose,Whole Blood 135 mg/dL (75-99)
[2017-10-22 13:05] LABS: Glucose,Whole Blood 159 mg/dL (75-99)
[2017-10-22 14:13] LABS: Glucose,Whole Blood 142 mg/dL (75-99)
[2017-10-22 14:57] LABS: Glucose,Whole Blood 137 mg/dL (75-99)
--- NOTE | 2017-10-22 15:36 | P.PN ---
Subjective 52-year-old admitted to ICU secondary to sepsis leading to acute respiratory distress syndrome patient remains intubated on ventilator is being managed by sound effects manager patient underwent irrigation and the bride meant of the left ankle twice during this hospitalization. Patient has MSSA in the joint and patient is presently on ceftezole and for that reason. Patient is intubated sedated and patient is on Precedex with anticipation of extubation tomorrow. 10/20/2017 Patient remains intubated patient is on high-dose of IV insulin and requiring large amounts of sedation remains in hypoxic respiratory failure had a low- grade fever today if he continues to have low-grade fevers or has a high-grade fever repeat blood cultures will be obtained 10/21/2017 Patient maintains intubated, still remains on 70% FiO2 and sound effects manager his considering tracheostomy and PEG tube placement. Patient had low-grade fevers yesterday. Patient is on paralytic agents now with fairly well-controlled blood pressure, clevidipine was discontinued 10/22/2017 Patient's FiO2 has come down to 50% today no other significant changes were made to vent. Objective - Vital Signs Vital signs: Vital Signs Temp 99.7 F H 10/22/17 15:00 Pulse 84 10/22/17 15:22 Resp 25 H 10/22/17 15:00 BP 125/59 10/21/17 14:30 Pulse Ox 97 10/22/17 15:00 Intake & Output 10/21/17 10/22/17 10/22/17 18:59 06:59 18:59 Intake Total 2420.964 0789.178 892.359 Output Total 1725 1370 1999 Balance -289.169 -124.822 -1107.641 Weight 160.1 kg 163.2 kg 163.2 kg Intake: IV 10 220 10 0.9 NS 10 220 10 Intake, IV Titration 1225.831 665.178 742.359 Amount Cisatracurium 200 mg In 499.843 200 371.450 Sodium Chloride 0.9% 180 ml @ 1 MCG/KG/MIN 9.69 mls/hr IV .[id number] [facility] Rx #:[id number] Clevidipine Butyrate 25 151.948 mg In Empty Bag 1 bag @ 1 MG/HR 2 mls/hr IV .Q24H [facility] Rx#:[id number] Insulin Regular 100 unit 75.416 72.178 74.909 In Sodium Chloride 0.9% 100 ml @ Per Protocol IV .Q0M [facility] Rx#:[id number] Propofol 1,000 mg In 498.624 393 296 Empty Bag 1 bag @ Per Protocol IV .Q0M [facility] Rx#: [id number] Oral 60 40 Tube Feeding 140 300 100 Other 60 Output: Urine 1725 1370 2000 Other: Voiding Method Indwelling Catheter Indwelling Catheter Indwelling Catheter # Voids 1 1 # Bowel Movements 1 ABP, PAP, CO, CI - Last Documented Arterial Blood Pressure 140/59 - Exam PHYSICAL EXAMINATION: GENERAL: Patient is intubated sedated, morbidly obese NG tube in place please refer to sound effects manager dictation for further details of went settings, sedation score. HEENT: Pupils are round and equally reacting to light. EOMI. No scleral icterus. No conjunctival pallor. Normocephalic, atraumatic. No pharyngeal erythema. No thyromegaly. CARDIOVASCULAR: S1 and S2 present. No murmurs, rubs, or gallops. PULMONARY: Chest is clear to auscultation, no wheezing or crackles. ABDOMEN: Soft, nontender, nondistended, normoactive bowel sounds. No palpable organomegaly. MUSCULOSKELETAL: Patient left leg is wrapped in Geoffrey bandages EXTREMITIES: No cyanosis, clubbing, or pedal edema. NEUROLOGICAL: Unable to assess due to the above-mentioned reasons SKIN: No rashes. - Labs CBC & Chem 7: 10/22/17 04:00 10/22/17 04:00 Labs: Abnormal Lab Results - Last 24 Hours (Table) 10/21/17 10/21/17 10/21/17 Range/Units 16:06 17:07 17:15 WBC (3.8-10.6) k/uL RBC (4.30-5.90) m/uL Hgb (13.0-17.5) gm/dL Hct (39.0-53.0) % ABG pCO2 (35-45) mmHg ABG pO2 (83-108) mmHg ABG HCO3 (21-25) mmol/L ABG Total CO2 (19-24) mmol/L ABG O2 Saturation (94-97) % BUN (9-20) mg/dL Glucose (74-99) mg/dL POC Glucose (mg/dL) 128 H 154 H 152 H (75-99) mg/dL Phosphorus (2.5-4.5) mg/dL 10/21/17 10/21/17 10/21/17 Range/Units 18:16 19:00 20:03 WBC (3.8-10.6) k/uL RBC (4.30-5.90) m/uL Hgb (13.0-17.5) gm/dL Hct (39.0-53.0) % ABG pCO2 (35-45) mmHg ABG pO2 (83-108) mmHg ABG HCO3 (21-25) mmol/L ABG Total CO2 (19-24) mmol/L ABG O2 Saturation (94-97) % BUN (9-20) mg/dL Glucose (74-99) mg/dL POC Glucose (mg/dL) 139 H 138 H 143 H (75-99) mg/dL Phosphorus (2.5-4.5) mg/dL 10/21/17 10/21/17 10/21/17 Range/Units 21:20 22:17 23:06 WBC (3.8-10.6) k/uL RBC (4.30-5.90) m/uL Hgb (13.0-17.5) gm/dL Hct (39.0-53.0) % ABG pCO2 (35-45) mmHg ABG pO2 (83-108) mmHg ABG HCO3 (21-25) mmol/L ABG Total CO2 (19-24) mmol/L ABG O2 Saturation (94-97) % BUN (9-20) mg/dL Glucose (74-99) mg/dL POC Glucose (mg/dL) 162 H 145 H 138 H (75-99) mg/dL Phosphorus (2.5-4.5) mg/dL 10/22/17 10/22/17 10/22/17 Range/Units 00:10 01:03 01:59 WBC (3.8-10.6) k/uL RBC (4.30-5.90) m/uL Hgb (13.0-17.5) gm/dL Hct (39.0-53.0) % ABG pCO2 (35-45) mmHg ABG pO2 (83-108) mmHg ABG HCO3 (21-25) mmol/L ABG Total CO2 (19-24) mmol/L ABG O2 Saturation (94-97) % BUN (9-20) mg/dL Glucose (74-99) mg/dL POC Glucose (mg/dL) 133 H 129 H 108 H (75-99) mg/dL Phosphorus (2.5-4.5) mg/dL 10/22/17 10/22/17 10/22/17 Range/Units 03:20 04:00 04:00 WBC 15.6 H (3.8-10.6) k/uL RBC 3.26 L (4.30-5.90) m/uL Hgb 9.2 L (13.0-17.5) gm/dL Hct 29.4 L (39.0-53.0) % ABG pCO2 (35-45) mmHg ABG pO2 (83-108) mmHg ABG HCO3 (21-25) mmol/L ABG Total CO2 (19-24) mmol/L ABG O2 Saturation (94-97) % BUN 27 H (9-20) mg/dL Glucose 140 H (74-99) mg/dL POC Glucose (mg/dL) 137 H (75-99) mg/dL Phosphorus (2.5-4.5) mg/dL 10/22/17 10/22/17 10/22/17 Range/Units 04:00 04:01 05:10 WBC (3.8-10.6) k/uL RBC (4.30-5.90) m/uL Hgb (13.0-17.5) gm/dL Hct (39.0-53.0) % ABG pCO2 48 H (35-45) mmHg ABG pO2 139 H (83-108) mmHg ABG HCO3 27 H (21-25) mmol/L ABG Total CO2 29 H (19-24) mmol/L ABG O2 Saturation 99.2 H (94-97) % BUN (9-20) mg/dL Glucose (74-99) mg/dL POC Glucose (mg/dL) 138 H (75-99) mg/dL Phosphorus 5.0 H (2.5-4.5) mg/dL 10/22/17 10/22/17 10/22/17 Range/Units 05:10 05:53 07:10 WBC (3.8-10.6) k/uL RBC (4.30-5.90) m/uL Hgb (13.0-17.5) gm/dL Hct (39.0-53.0) % ABG pCO2 (35-45) mmHg ABG pO2 (83-108) mmHg ABG HCO3 (21-25) mmol/L ABG Total CO2 (19-24) mmol/L ABG O2 Saturation (94-97) % BUN (9-20) mg/dL Glucose (74-99) mg/dL POC Glucose (mg/dL) 167 H 157 H 151 H (75-99) mg/dL Phosphorus (2.5-4.5) mg/dL 10/22/17 10/22/17 10/22/17 Range/Units 08:07 09:03 09:59 WBC (3.8-10.6) k/uL RBC (4.30-5.90) m/uL Hgb (13.0-17.5) gm/dL Hct (39.0-53.0) % ABG pCO2 (35-45) mmHg ABG pO2 (83-108) mmHg ABG HCO3 (21-25) mmol/L ABG Total CO2 (19-24) mmol/L ABG O2 Saturation (94-97) % BUN (9-20) mg/dL Glucose (74-99) mg/dL POC Glucose (mg/dL) 148 H 138 H 137 H (75-99) mg/dL Phosphorus (2.5-4.5) mg/dL 10/22/17 10/22/17 10/22/17 Range/Units 11:00 13:02 14:09 WBC (3.8-10.6) k/uL RBC (4.30-5.90) m/uL Hgb (13.0-17.5) gm/dL Hct (39.0-53.0) % ABG pCO2 (35-45) mmHg ABG pO2 (83-108) mmHg ABG HCO3 (21-25) mmol/L ABG Total CO2 (19-24) mmol/L ABG O2 Saturation (94-97) % BUN (9-20) mg/dL Glucose (74-99) mg/dL POC Glucose (mg/dL) 135 H 159 H 142 H (75-99) mg/dL Phosphorus (2.5-4.5) mg/dL 10/22/17 Range/Units 14:54 WBC (3.8-10.6) k/uL RBC (4.30-5.90) m/uL Hgb (13.0-17.5) gm/dL Hct (39.0-53.0) % ABG pCO2 (35-45) mmHg ABG pO2 (83-108) mmHg ABG HCO3 (21-25) mmol/L ABG Total CO2 (19-24) mmol/L ABG O2 Saturation (94-97) % BUN (9-20) mg/dL Glucose (74-99) mg/dL POC Glucose (mg/dL) 137 H (75-99) mg/dL Phosphorus (2.5-4.5) mg/dL Microbiology - Last 24 Hours (Table) 10/17/17 05:50 Blood Culture - Preliminary Blood No Growth after 120 hours 10/17/17 04:07 Blood Culture - Preliminary Blood No Growth after 120 hours Assessment and Plan Plan: Acute septic arthritis of the left ankle, status post left ankle irrigation with debridement, twice during this hospitalization and patient has MSSA and patient is on ceftezolin. Acute hypoxemic respiratory failure requiring intubation and mechanical ventilation with failure to wean from mechanical ventilation, possibility of ARDS Acute severe sepsis with positive blood cultures for methicillin sensitive Staphylococcus Mental status changes, set secondary to sepsis encephalopath Diabetes mellitus: Per can you present regimen titrate as necessary Severe peripheral neuropathy History of chronic wounds and ulcerations of the lower extremities with cellulitis Charcot joints Morbid obesity Hypertension Hyperlipidemia Hypothyroidism Acute kidney injury
[2017-10-22 16:17] LABS: Glucose,Whole Blood 130 mg/dL (75-99)
--- NOTE | 2017-10-22 17:38 | P.PN ---
Subjective Progress Note Date: 10/22/17 Principal diagnosis: Acute septic arthritis of the left ankle, status post left ankle irrigation with debridement, acute hypoxemic respiratory failure requiring intubation and mechanical ventilation with failure to wean from mechanical ventilator despite daily interruption of sedation and spontaneous breathing trials, mental status changes, secondary to sepsis encephalopathy, ARDS, diabetes mellitus with poor glucose control, severe peripheral neuropathy, history of chronic wound with ulcerations to his lower extremities with cellulitis, Charcot joints, morbid obesity, hypertension, hyperlipidemia, morbid obesity, hypothyroid and acute kidney injury. POD #10 irrigation and debridement of left ankle, application of wound VAC left ankle. POD #6 irrigation debridement left ankle, application of wound VAC left ankle. The patient is laying in bed and currently sedated on propofol, remains intubated with mechanical ventilator support. He is not following any verbal commands at this time. Objective - Vital Signs Vital signs: Vital Signs Temp 98.6 F 10/22/17 17:00 Pulse 80 10/22/17 17:00 Resp 25 H 10/22/17 17:00 BP 125/59 10/21/17 14:30 Pulse Ox 97 10/22/17 17:00 Intake & Output 18 10/22/17 10/22/17 18:59 06:59 18:59 Intake Total 9817.700 9573.178 1104.626 Output Total 1725 1370 2350 Balance -289.169 -124.822 -1245.374 Weight 160.1 kg 163.2 kg 163.2 kg Intake: IV 10 220 10 0.9 NS 10 220 10 Intake, IV Titration 1225.831 665.178 934.626 Amount Cisatracurium 200 mg In 499.843 200 371.450 Sodium Chloride 0.9% 180 ml @ 1 MCG/KG/MIN 9.69 mls/hr IV .[id number] [facility] Rx #:[id number] Clevidipine Butyrate 25 151.948 mg In Empty Bag 1 bag @ 1 MG/HR 2 mls/hr IV .Q24H [facility] Rx#:[id number] Insulin Regular 100 unit 75.416 72.178 99.509 In Sodium Chloride 0.9% 100 ml @ Per Protocol IV .Q0M [facility] Rx#:[id number] Propofol 1,000 mg In 498.624 393 463.667 Empty Bag 1 bag @ Per Protocol IV .Q0M [facility] Rx#: [id number] Oral 60 40 Tube Feeding 140 300 120 Other 60 Output: Urine 1725 1370 2350 Other: Voiding Method Indwelling Catheter Indwelling Catheter Indwelling Catheter # Voids 1 1 # Bowel Movements 1 ABP, PAP, CO, CI - Last Documented Arterial Blood Pressure 150/62 - Constitutional Constitutional Comment(s): Sedated on propofol drip and is on Nimbex drip. General appearance: Present: no acute distress, obese - Respiratory Details: Lung sounds are with few scattered rhonchi throughout, diminished bilateral bases. Respirations are symmetrical and nonlabored with mechanical ventilator support. Current mechanical ventilator settings are assist control 26, TV 500, FiO2 55%, PEEP 12. #8 ET tube present at 25 at the lip. - Cardiovascular Details: Regular rhythm and rate. S1 and S2 present, negative for S3, gallop or murmur. Bedside telemetry showing normal sinus rhythm heart rate 82. Knee-high SCDs in place to his bilateral lower extremities. Generalized edema present. - Gastrointestinal Gastrointestinal Comment(s): Abdomen is soft and nondistended. Active bowel sounds all 4 abdominal quadrants. OG tube in place with vital high-protein infusing at 20 mL per hour. - Genitourinary Genitourinary Comment(s): Riddle catheter for accurate I&O. Draining clear german urine. - Integumentary Integumentary Comment(s): Skin is warm and dry. Left lower extremity Geoffrey wrap in place from toes to knee. Right great toe post amputation, healed. No rash or abnormal pigmentation present. - Neurologic Neurologic Comment(s): Sedated on propofol drip and continues to be on Nimbex drip with train of 4 being completed by nursing staff. - Musculoskeletal Musculoskeletal: Present: generalized weakness - Allied health notes Allied health notes reviewed: nursing - Labs CBC & Chem 7: 10/22/17 04:00 10/22/17 04:00 Labs: Abnormal Lab Results - Last 24 Hours (Table) 10/21/17 10/21/17 10/21/17 Range/Units 18:16 19:00 20:03 WBC (3.8-10.6) k/uL RBC (4.30-5.90) m/uL Hgb (13.0-17.5) gm/dL Hct (39.0-53.0) % ABG pCO2 (35-45) mmHg ABG pO2 (83-108) mmHg ABG HCO3 (21-25) mmol/L ABG Total CO2 (19-24) mmol/L ABG O2 Saturation (94-97) % BUN (9-20) mg/dL Glucose (74-99) mg/dL POC Glucose (mg/dL) 139 H 138 H 143 H (75-99) mg/dL Phosphorus (2.5-4.5) mg/dL 10/21/17 10/21/17 10/21/17 Range/Units 21:20 22:17 23:06 WBC (3.8-10.6) k/uL RBC (4.30-5.90) m/uL Hgb (13.0-17.5) gm/dL Hct (39.0-53.0) % ABG pCO2 (35-45) mmHg ABG pO2 (83-108) mmHg ABG HCO3 (21-25) mmol/L ABG Total CO2 (19-24) mmol/L ABG O2 Saturation (94-97) % BUN (9-20) mg/dL Glucose (74-99) mg/dL POC Glucose (mg/dL) 162 H 145 H 138 H (75-99) mg/dL Phosphorus (2.5-4.5) mg/dL 10/22/17 10/22/17 10/22/17 Range/Units 00:10 01:03 01:59 WBC (3.8-10.6) k/uL RBC (4.30-5.90) m/uL Hgb (13.0-17.5) gm/dL Hct (39.0-53.0) % ABG pCO2 (35-45) mmHg ABG pO2 (83-108) mmHg ABG HCO3 (21-25) mmol/L ABG Total CO2 (19-24) mmol/L ABG O2 Saturation (94-97) % BUN (9-20) mg/dL Glucose (74-99) mg/dL POC Glucose (mg/dL) 133 H 129 H 108 H (75-99) mg/dL Phosphorus (2.5-4.5) mg/dL 10/22/17 10/22/17 10/22/17 Range/Units 03:20 04:00 04:00 WBC 15.6 H (3.8-10.6) k/uL RBC 3.26 L (4.30-5.90) m/uL Hgb 9.2 L (13.0-17.5) gm/dL Hct 29.4 L (39.0-53.0) % ABG pCO2 (35-45) mmHg ABG pO2 (83-108) mmHg ABG HCO3 (21-25) mmol/L ABG Total CO2 (19-24) mmol/L ABG O2 Saturation (94-97) % BUN 27 H (9-20) mg/dL Glucose 140 H (74-99) mg/dL POC Glucose (mg/dL) 137 H (75-99) mg/dL Phosphorus (2.5-4.5) mg/dL 10/22/17 10/22/17 10/22/17 Range/Units 04:00 04:01 05:10 WBC (3.8-10.6) k/uL RBC (4.30-5.90) m/uL Hgb (13.0-17.5) gm/dL Hct (39.0-53.0) % ABG pCO2 48 H (35-45) mmHg ABG pO2 139 H (83-108) mmHg ABG HCO3 27 H (21-25) mmol/L ABG Total CO2 29 H (19-24) mmol/L ABG O2 Saturation 99.2 H (94-97) % BUN (9-20) mg/dL Glucose (74-99) mg/dL POC Glucose (mg/dL) 138 H (75-99) mg/dL Phosphorus 5.0 H (2.5-4.5) mg/dL 10/22/17 10/22/17 10/22/17 Range/Units 05:10 05:53 07:10 WBC (3.8-10.6) k/uL RBC (4.30-5.90) m/uL Hgb (13.0-17.5) gm/dL Hct (39.0-53.0) % ABG pCO2 (35-45) mmHg ABG pO2 (83-108) mmHg ABG HCO3 (21-25) mmol/L ABG Total CO2 (19-24) mmol/L ABG O2 Saturation (94-97) % BUN (9-20) mg/dL Glucose (74-99) mg/dL POC Glucose (mg/dL) 167 H 157 H 151 H (75-99) mg/dL Phosphorus (2.5-4.5) mg/dL 10/22/17 10/22/17 10/22/17 Range/Units 08:07 09:03 09:59 WBC (3.8-10.6) k/uL RBC (4.30-5.90) m/uL Hgb (13.0-17.5) gm/dL Hct (39.0-53.0) % ABG pCO2 (35-45) mmHg ABG pO2 (83-108) mmHg ABG HCO3 (21-25) mmol/L ABG Total CO2 (19-24) mmol/L ABG O2 Saturation (94-97) % BUN (9-20) mg/dL Glucose (74-99) mg/dL POC Glucose (mg/dL) 148 H 138 H 137 H (75-99) mg/dL Phosphorus (2.5-4.5) mg/dL 10/22/17 10/22/17 10/22/17 Range/Units 11:00 13:02 14:09 WBC (3.8-10.6) k/uL RBC (4.30-5.90) m/uL Hgb (13.0-17.5) gm/dL Hct (39.0-53.0) % ABG pCO2 (35-45) mmHg ABG pO2 (83-108) mmHg ABG HCO3 (21-25) mmol/L ABG Total CO2 (19-24) mmol/L ABG O2 Saturation (94-97) % BUN (9-20) mg/dL Glucose (74-99) mg/dL POC Glucose (mg/dL) 135 H 159 H 142 H (75-99) mg/dL Phosphorus (2.5-4.5) mg/dL 10/22/17 10/22/17 Range/Units 14:54 16:14 WBC (3.8-10.6) k/uL RBC (4.30-5.90) m/uL Hgb (13.0-17.5) gm/dL Hct (39.0-53.0) % ABG pCO2 (35-45) mmHg ABG pO2 (83-108) mmHg ABG HCO3 (21-25) mmol/L ABG Total CO2 (19-24) mmol/L ABG O2 Saturation (94-97) % BUN (9-20) mg/dL Glucose (74-99) mg/dL POC Glucose (mg/dL) 137 H 130 H (75-99) mg/dL Phosphorus (2.5-4.5) mg/dL Microbiology - Last 24 Hours (Table) 10/17/17 05:50 Blood Culture - Preliminary Blood No Growth after 120 hours 10/17/17 04:07 Blood Culture - Preliminary Blood No Growth after 120 hours - Imaging and Cardiology Chest x-ray: report reviewed, image reviewed Assessment and Plan (1) Acute kidney injury Current Visit: Yes Status: Acute Code(s): N17.9 - ACUTE KIDNEY FAILURE, UNSPECIFIED SNOMED Code(s): 88010210 (2) Acute respiratory failure with hypoxia Current Visit: Yes Status: Acute Code(s): J96.01 - ACUTE RESPIRATORY FAILURE WITH HYPOXIA SNOMED Code(s): 96284776 (3) Sepsis Current Visit: Yes Status: Acute Priority: Medium Code(s): A41.9 - SEPSIS , UNSPECIFIED ORGANISM SNOMED Code(s): 05793797 (4) Septic arthritis of left ankle Current Visit: Yes Status: Acute Code(s): M00.9 - PYOGENIC ARTHRITIS, UNSPECIFIED SNOMED Code(s): 54879759 (5) Charcot ankle Current Visit: Yes Status: Chronic Code(s): M14.679 - CHARCOT'S JOINT, UNSPECIFIED ANKLE AND FOOT SNOMED Code(s): 688096273 (6) Diabetes mellitus Current Visit: Yes Status: Chronic Code(s): E11.9 - TYPE 2 DIABETES MELLITUS WITHOUT COMPLICATIONS SNOMED Code(s): 22716921 (7) Hyperlipidemia associated with type 2 diabetes mellitus Current Visit: Yes Status: Chronic Code(s): E11.69 - TYPE 2 DIABETES MELLITUS WITH OTHER SPECIFIED COMPLICATION; E78.5 - HYPERLIPIDEMIA, UNSPECIFIED SNOMED Code(s): 095949229845 (8) Hypertension Current Visit: Yes Status: Chronic Code(s): I10 - ESSENTIAL (PRIMARY) HYPERTENSION SNOMED Code(s): 91667709 (9) Hypothyroid Current Visit: Yes Status: Chronic Code(s): E03.9 - HYPOTHYROIDISM, UNSPECIFIED SNOMED Code(s): 25867860 (10) Morbid obesity with BMI of 45.0-49.9, adult Current Visit: Yes Status: Chronic Code(s): E66.01 - MORBID (SEVERE) OBESITY DUE TO EXCESS CALORIES; Z68.42 - BODY MASS INDEX (BMI) 45.0-49.9, ADULT SNOMED Code(s): 068411159 (11) Cellulitis Current Visit: No Status: Acute Priority: Medium Code(s): L03.90 - CELLULITIS, UNSPECIFIED SNOMED Code(s): 517706725 (12) Tobacco dependence in remission Current Visit: No Status: Resolved Code(s): F17.201 - NICOTINE DEPENDENCE, UNSPECIFIED, IN REMISSION SNOMED Code(s): 287629967 Plan: 1. He is scheduled for a tracheostomy and PEG tube placement on Saturday, October 23 to be performed by Dr. Darwin Zepeda. 2. The patient will be placed on nothing by mouth status after midnight and plan for the above-mentioned procedures. 3. Pulmonary management per Dr. Moran's recommendations. 4. Further recommendations to follow based on the patient's clinical course. Time with Patient: Greater than 30
[2017-10-22 18:07] LABS: Glucose,Whole Blood 139 mg/dL (75-99)
[2017-10-22 19:03] LABS: Glucose,Whole Blood 132 mg/dL (75-99)
[2017-10-22 20:06] LABS: Glucose,Whole Blood 147 mg/dL (75-99)
[2017-10-22 20:55] LABS: Glucose,Whole Blood 140 mg/dL (75-99)
[2017-10-22 22:11] LABS: Glucose,Whole Blood 135 mg/dL (75-99)
--- NOTE | 2017-10-22 22:41 | P.PN ---
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 The patient is been having some difficulties with his left ankle and following with the orthopedic surgeon. Because of some discomfort at the joint he was measured and given a new bracing device for the foot and ankle. However grommet on the dorsum of the foot resulted in a bit of an ulcer and he was concerned and sought care in the office. The patient had difficulty making the appointment because of the weather and has significant distance from work to the office and reschedule. When he came to the office earlier this week the ulceration had healed and he was feeling better but was still having some swelling to the ankle area. He had no fever or chills at the time of presentation to the office, but did have the swelling to the ankle area for which she had a specialty boot that have been designed that he was not wearing that day. He however presents to the emergency center because of the sudden onset of inability to bear weight to the ankle because of the amount of pain that he started to have. Shortly thereafter he became febrile and has had a rapid decline in his status with evidence of sepsis and presentation to the intensive care unit. The case is discussed with the weigh boss as well as the orthopedic foot and ankle specialist. Given his rapid decline in status he'll go to the operating room this afternoon. The patient is acutely ill with fever chills generalized weakness and malaise and some alteration of his mental status 10/13/2017 patient remains in intensive care unit with ongoing sepsis. Appears to have acute lung injury and also has an elevation of his creatinine likely with an acute renal injury also occurring from his sepsis. Laboratories revealed evidence of staph aureus await final susceptibility. Follow blood cultures in process reasonable cultures are positive. Patient continues to have some ongoing fevers and is admitted of nausea with the response to Zofran. He is still in a warm flushed phase of sepsis and hopefully now that he has been resuscitated will have further improvement of his status. 10/14/2017 patient does have some improvement today. He is not hypotensive not requiring vasopressors but is still on high flow oxygen for his acute lung injury. He has had fevers but down to 99.9 still feels poorly and has significant pain of the left foot and ankle area. 10/15/2017 the patient had deterioration of his respiratory status last night with his acute lung injury and developing early ARDS. He required intubation with sedation and mechanical ventilation. With improved sedation he is quite comfortable today and is synchronous with the vent with adequate oxygenation and improved blood gas. The patient is quite comfortable at this time and receiving tube feeds for his nutritional needs. Fever and leukocytosis are trending down 10/16/2017 is noted the patient remains ventilated as well as with intubation and sedation. He is quite comfortable today. Has been taking back to the operating room for further evaluation of the medial aspect of the right ankle, some infected bone was debrided but no further extensive pockets of purulence were found. Wound VAC applied. 10/17/2017 patient has had a weaning trial today but it was not successful in counseling. Remains intubated sedated and mechanically ventilated. He does to do quite comfortable. Wound vacs are in place after the debridement of yesterday to the left foot. Fever has trended down and he is hemodynamically stable 10/18/2017 the patient had an attempt for a weaning trial but this however did not go well the patient became significantly hypertensive. With multiple medications this is now settled. Today the wound vacs will be changed further care will be given. Is much more calm this afternoon and hopefully further weaning trials will go well over the next few days. The fever has resolved and there is now a negative blood culture. 2017 patient remains in ICU intubated sedated and paralyzed due to the ARDS which is resulting in fpc respiratory failure. 10/22/2017 reveals the patient to have a slightly improved ventilatory status he is down to 55% FiO2 and PEEP is at 12. He has been evaluated by Dr. Zepeda for tracheostomy and PEG tube placement in the near future. The patient seems to be quite comfortable and with the current sedation and paralysis. Ventilating well Objective - Vital Signs Vital signs: Vital Signs Temp 99.3 F 10/22/17 20:00 Pulse 81 10/22/17 21:00 Resp 26 H 10/22/17 21:00 BP 125/59 10/21/17 14:30 Pulse Ox 98 10/22/17 21:00 Intake & Output 10/22/17 10/22/17 10/23/17 06:59 18:59 06:59 Intake Total 7161.500 7725.693 200 Output Total 1370 2575 120 Balance -124.822 -1173.307 80 Weight 163.2 kg 163.2 kg Intake: IV 220 10 40 0.9 NS 220 10 40 Intake, IV Titration 635.619 1592.693 100 Amount Cisatracurium 200 mg In 200 551.684 Sodium Chloride 0.9% 180 ml @ 1 MCG/KG/MIN 9.69 mls/hr IV .[id number] [facility] Rx #:[id number] Insulin Regular 100 unit 72.178 99.509 0 In Sodium Chloride 0.9% 100 ml @ Per Protocol IV .Q0M [facility] Rx#:[id number] Propofol 1,000 mg In 393 560.500 100 Empty Bag 1 bag @ Per Protocol IV .Q0M [facility] Rx#: [id number] Oral 40 Tube Feeding 300 140 60 Other 60 Output: Urine 1370 2575 120 Other: Voiding Method Indwelling Catheter Indwelling Catheter Indwelling Catheter # Voids 1 ABP, PAP, CO, CI - Last Documented Arterial Blood Pressure 160/62 - Exam 52-year-old male presents to Hospital feeling acutely ill found to have evidence of fever and then rapidly developed sepsis, HEENT: Anicteric conjunctiva are pink and moist nasal mucosa grossly intact without significant lesions, patient is now intubated and sedated Neck: The neck is supple without significant lymphadenopathy or thyromegaly. Lungs: Good bilateral air entry with harsh breath sounds Heart: Tachycardic but regular with an audible S1 and S2 soft S4 There is no significant murmur click or rub, PMI was nondisplaced. Abdomen: Obese Positive bowel sounds soft and nontender without palpable masses or organomegaly. There was no guarding or rebound. Extremities: The upper extremities have excellent pulses they are symmetric, no significant petechiae or telangiectasia. No splinter hemorrhages were noted. Right lower extremity has evidence of the prior great toe amputation which is well healed. Left lower extremity reveals evidence of the surgical incision and drainage performed in the wound VAC is in place. There is still some swelling but the extensive swelling at the ankle has started to improve. There is no inguinal lymphadenopathy. Neuro: Sedated,paralyzed and mechanically ventilated - Labs CBC & Chem 7: 10/22/17 04:00 05/01/18 04:00 Labs: Abnormal Lab Results - Last 24 Hours (Table) 10/21/17 10/21/17 10/22/17 Range/Units 22:17 23:06 00:10 WBC (3.8-10.6) k/uL RBC (4.30-5.90) m/uL Hgb (13.0-17.5) gm/dL Hct (39.0-53.0) % ABG pCO2 (35-45) mmHg ABG pO2 (83-108) mmHg ABG HCO3 (21-25) mmol/L ABG Total CO2 (19-24) mmol/L ABG O2 Saturation (94-97) % BUN (9-20) mg/dL Glucose (74-99) mg/dL POC Glucose (mg/dL) 145 H 138 H 133 H (75-99) mg/dL Phosphorus (2.5-4.5) mg/dL 10/22/17 10/22/17 10/22/17 Range/Units 01:03 01:59 03:20 WBC (3.8-10.6) k/uL RBC (4.30-5.90) m/uL Hgb (13.0-17.5) gm/dL Hct (39.0-53.0) % ABG pCO2 (35-45) mmHg ABG pO2 (83-108) mmHg ABG HCO3 (21-25) mmol/L ABG Total CO2 (19-24) mmol/L ABG O2 Saturation (94-97) % BUN (9-20) mg/dL Glucose (74-99) mg/dL POC Glucose (mg/dL) 129 H 108 H 137 H (75-99) mg/dL Phosphorus (2.5-4.5) mg/dL 10/22/17 10/22/17 10/22/17 Range/Units 04:00 04:00 04:00 WBC 15.6 H (3.8-10.6) k/uL RBC 3.26 L (4.30-5.90) m/uL Hgb 9.2 L (13.0-17.5) gm/dL Hct 29.4 L (39.0-53.0) % ABG pCO2 (35-45) mmHg ABG pO2 (83-108) mmHg ABG HCO3 (21-25) mmol/L ABG Total CO2 (19-24) mmol/L ABG O2 Saturation (94-97) % BUN 27 H (9-20) mg/dL Glucose 140 H (74-99) mg/dL POC Glucose (mg/dL) (75-99) mg/dL Phosphorus 5.0 H (2.5-4.5) mg/dL 10/22/17 10/22/17 10/22/17 Range/Units 04:01 05:10 05:10 WBC (3.8-10.6) k/uL RBC (4.30-5.90) m/uL Hgb (13.0-17.5) gm/dL Hct (39.0-53.0) % ABG pCO2 48 H (35-45) mmHg ABG pO2 139 H (83-108) mmHg ABG HCO3 27 H (21-25) mmol/L ABG Total CO2 29 H (19-24) mmol/L ABG O2 Saturation 99.2 H (94-97) % BUN (9-20) mg/dL Glucose (74-99) mg/dL POC Glucose (mg/dL) 138 H 167 H (75-99) mg/dL Phosphorus (2.5-4.5) mg/dL 10/22/17 10/22/17 10/22/17 Range/Units 05:53 07:10 08:07 WBC (3.8-10.6) k/uL RBC (4.30-5.90) m/uL Hgb (13.0-17.5) gm/dL Hct (39.0-53.0) % ABG pCO2 (35-45) mmHg ABG pO2 (83-108) mmHg ABG HCO3 (21-25) mmol/L ABG Total CO2 (19-24) mmol/L ABG O2 Saturation (94-97) % BUN (9-20) mg/dL Glucose (74-99) mg/dL POC Glucose (mg/dL) 157 H 151 H 148 H (75-99) mg/dL Phosphorus (2.5-4.5) mg/dL 10/22/17 10/22/17 10/22/17 Range/Units 09:03 09:59 11:00 WBC (3.8-10.6) k/uL RBC (4.30-5.90) m/uL Hgb (13.0-17.5) gm/dL Hct (39.0-53.0) % ABG pCO2 (35-45) mmHg ABG pO2 (83-108) mmHg ABG HCO3 (21-25) mmol/L ABG Total CO2 (19-24) mmol/L ABG O2 Saturation (94-97) % BUN (9-20) mg/dL Glucose (74-99) mg/dL POC Glucose (mg/dL) 138 H 137 H 135 H (75-99) mg/dL Phosphorus (2.5-4.5) mg/dL 10/22/17 10/22/17 10/22/17 Range/Units 13:02 14:09 14:54 WBC (3.8-10.6) k/uL RBC (4.30-5.90) m/uL Hgb (13.0-17.5) gm/dL Hct (39.0-53.0) % ABG pCO2 (35-45) mmHg ABG pO2 (83-108) mmHg ABG HCO3 (21-25) mmol/L ABG Total CO2 (19-24) mmol/L ABG O2 Saturation (94-97) % BUN (9-20) mg/dL Glucose (74-99) mg/dL POC Glucose (mg/dL) 159 H 142 H 137 H (75-99) mg/dL Phosphorus (2.5-4.5) mg/dL 10/22/17 10/22/17 10/22/17 Range/Units 16:14 18:05 19:01 WBC (3.8-10.6) k/uL RBC (4.30-5.90) m/uL Hgb (13.0-17.5) gm/dL Hct (39.0-53.0) % ABG pCO2 (35-45) mmHg ABG pO2 (83-108) mmHg ABG HCO3 (21-25) mmol/L ABG Total CO2 (19-24) mmol/L ABG O2 Saturation (94-97) % BUN (9-20) mg/dL Glucose (74-99) mg/dL POC Glucose (mg/dL) 130 H 139 H 132 H (75-99) mg/dL Phosphorus (2.5-4.5) mg/dL 10/22/17 10/22/17 Range/Units 20:05 20:53 WBC (3.8-10.6) k/uL RBC (4.30-5.90) m/uL Hgb (13.0-17.5) gm/dL Hct (39.0-53.0) % ABG pCO2 (35-45) mmHg ABG pO2 (83-108) mmHg ABG HCO3 (21-25) mmol/L ABG Total CO2 (19-24) mmol/L ABG O2 Saturation (94-97) % BUN (9-20) mg/dL Glucose (74-99) mg/dL POC Glucose (mg/dL) 147 H 140 H (75-99) mg/dL Phosphorus (2.5-4.5) mg/dL Microbiology - Last 24 Hours (Table) 10/17/17 05:50 Blood Culture - Preliminary Blood No Growth after 120 hours 10/17/17 04:07 Blood Culture - Preliminary Blood No Growth after 120 hours Laboratory Results WBC 15.6 k/uL (3.8-10.6) H 10/22/17 04:00 RBC 3.26 m/uL (4.30-5.90) L 10/22/17 04:00 Hgb 9.2 gm/dL (13.0-17.5) L 10/22/17 04:00 Hct 29.4 % (39.0-53.0) L 10/22/17 04:00 MCV 90.0 fL (80.0-100.0) 10/22/17 04:00 MCH 28.0 pg (25.0-35.0) 10/22/17 04:00 MCHC 31.2 g/dL (31.0-37.0) 10/22/17 04:00 RDW 14.2 % (11.5-15.5) 10/22/17 04:00 Plt Count 441 k/uL (150-450) 10/22/17 04:00 Neutrophils % 81 % 10/18/17 05:00 Neutrophils % (Manual) 82 % 10/21/17 06:00 Band Neutrophils % 8 % 10/20/17 05:00 Lymphocytes % 10 % 10/18/17 05:00 Lymphocytes % (Manual) 9 % 10/21/17 06:00 Monocytes % 4 % 10/18/17 05:00 Monocytes % (Manual) 5 % 10/21/17 06:00 Eosinophils % 3 % 10/18/17 05:00 Eosinophils % (Manual) 3 % 10/20/17 05:00 Basophils % 1 % 10/18/17 05:00 Basophils % (Manual) 1 % 10/20/17 05:00 Metamyelocytes % 4 % 10/20/17 05:00 Myelocytes % 4 % 10/21/17 06:00 Neutrophils # 16.1 k/uL (1.3-7.7) H 10/18/17 05:00 Neutrophils # (Manual) 13.45 k/uL (1.3-7.7) H 10/21/17 06:00 Lymphocytes # 2.0 k/uL (1.0-4.8) 10/18/17 05:00 Lymphocytes # (Manual) 1.48 k/uL (1.0-4.8) 10/21/17 06:00 Monocytes # 0.8 k/uL (0-1.0) 10/18/17 05:00 Monocytes # (Manual) 0.82 k/uL (0-1.0) 10/21/17 06:00 Eosinophils # 0.7 k/uL (0-0.7) 10/18/17 05:00 Eosinophils # (Manual) 0.53 k/uL (0-0.7) 10/20/17 05:00 Basophils # 0.1 k/uL (0-0.2) 10/18/17 05:00 Basophils # (Manual) 0.18 k/uL (0-0.2) 10/20/17 05:00 Metamyelocytes # (Man) 0.70 k/uL (0) H 10/20/17 05:00 Myelocytes # (Manual) 0.66 k/uL (0) H 10/21/17 06:00 Nucleated RBCs 0 /100 WBC (0-0) 10/21/17 06:00 Manual Slide Review Performed 10/21/17 06:00 Toxic Granulation Present 10/20/17 05:00 Large Platelets Present 10/21/17 06:00 Polychromasia Present 10/21/17 06:00 Hypochromasia Moderate 10/22/17 04:00 ESR 25 mm/hr (0-15) H 10/12/17 07:29 Sample Site gates 10/22/17 05:10 ABG pH 7.36 (7.35-7.45) 10/22/17 05:10 ABG pCO2 48 mmHg (35-45) H 10/22/17 05:10 ABG pO2 139 mmHg (83-108) H 10/22/17 05:10 ABG HCO3 27 mmol/L (21-25) H 10/22/17 05:10 ABG Total CO2 29 mmol/L (19-24) H 10/22/17 05:10 ABG O2 Saturation 99.2 % (94-97) H 10/22/17 05:10 ABG Base Excess 1.5 mmol/L 10/22/17 05:10 Cr Test Yes 10/22/17 05:10 ABG Lactic Acid 1.0 mmol/L (0.5-1.6) 10/12/17 18:06 FiO2 70 % 10/22/17 05:10 Sodium 141 mmol/L (137-145) 10/22/17 04:00 Potassium 4.4 mmol/L (3.5-5.1) 10/22/17 04:00 Chloride 105 mmol/L (98-107) 10/22/17 04:00 Carbon Dioxide 27 mmol/L (22-30) 10/22/17 04:00 Anion Gap 9 mmol/L 10/22/17 04:00 BUN 27 mg/dL (9-20) H 10/22/17 04:00 Creatinine 0.79 mg/dL (0.66-1.25) 10/22/17 04:00 Est GFR (CKD-EPI)AfAm >90 (>60 ml/min/1.73 sqM) 10/22/17 04:00 Est GFR (CKD-EPI)NonAf >90 (>60 ml/min/1.73 sqM) 10/22/17 04:00 Glucose 140 mg/dL (74-99) H 10/22/17 04:00 POC Glucose (mg/dL) 140 mg/dL (75-99) H 10/22/17 20:53 POC Glu [employer] ID Malika Lyon 10/22/17 20:[address] Glu mg/dL 214 10/12/17 07:29 Hemoglobin A1c 9.1 % (4.0-6.0) H 10/12/17 07:29 Plasma Lactic Acid Ron 1.5 mmol/L (0.7-2.0) 10/11/17 21:10 Uric Acid 5.6 mg/dL (3.5-8.5) 10/11/17 21:10 Calcium 9.0 mg/dL (8.4-10.2) 10/22/17 04:00 Phosphorus 5.0 mg/dL (2.5-4.5) H 10/22/17 04:00 Magnesium 2.1 mg/dL (1.6-2.3) 10/22/17 04:00 AST 96 U/L (17-59) H 10/13/17 19:55 ALT 58 U/L (21-72) 10/13/17 19:55 C-Reactive Protein 45.1 mg/L (<10.0) H 10/11/17 21:10 Urine Color Yellow 10/15/17 11:30 Urine Appearance Clear (Clear) 10/15/17 11:30 Urine pH 6.0 (5.0-8.0) 10/15/17 11:30 Ur Specific [place] 1.018 (1.001-1.035) 10/15/17 11:30 Urine Protein 1+ (Negative) H 10/15/17 11:30 Urine Glucose (UA) 3+ (Negative) H 10/15/17 11:30 Urine Ketones Negative (Negative) 10/15/17 11:30 Urine Blood Small (Negative) H 10/15/17 11:30 Urine Nitrite Negative (Negative) 10/15/17 11:30 Urine Bilirubin Negative (Negative) 10/15/17 11:30 Urine Urobilinogen <2.0 mg/dL (<2.0) 10/15/17 11:30 Ur Leukocyte Esterase Negative (Negative) 10/15/17 11:30 Urine RBC <1 /hpf (0-5) 10/15/17 11:30 Urine WBC 3 /hpf (0-5) 10/15/17 11:30 Urine Mucus Rare /hpf (None) H 10/15/17 11:30 Blood Type O Positive 10/21/17 13:30 Blood Type Recheck No 10/21/17 13:30 Antibody Screen NEGATIVE 10/21/17 13:30 Spec Expiration Date 10/24/2017232910/21/17 13:30 Microbiology 10/17/17 05:50 Blood Blood Culture - Preliminary No Growth after 120 hours 10/17/17 04:07 Blood Blood Culture - Preliminary No Growth after 120 hours 10/15/17 05:15 Sputum Gram Stain - Final 10/15/17 05:15 Sputum Sputum Culture - Final Jayne albicans 10/13/17 08:45 Blood Blood Culture Gram Stain - Final 10/13/17 08:45 Blood Blood Culture - Final Staphylococcus aureus 10/12/17 19:48 Ankle - Left Anaerobic Culture - Final 10/12/17 19:48 Ankle - Left Anaerobic Culture - Final 10/13/17 07:25 Blood Blood Culture Gram Stain - Final 10/13/17 07:25 Blood Blood Culture - Final Staphylococcus aureus 10/12/17 19:48 Ankle - Left Gram Stain - Final 10/12/17 19:48 Ankle - Left Wound Culture - Final Staph aureus 10/12/17 19:48 Ankle - Left Gram Stain - Final 10/12/17 19:48 Ankle - Left Wound Culture - Final Staphylococcus aureus 10/12/17 09:27 Synovial Fluid Gram Stain - Final 10/12/17 09:27 Synovial Fluid Body Fluid Culture - Final Staphylococcus aureus 10/13/17 07:25 Blood Blood Culture - Final 10/13/17 08:45 Blood Blood Culture - Final 10/11/17 21:15 Blood Blood Culture Gram Stain - Final 10/11/17 21:15 Blood Blood Culture - Final Staphylococcus aureus 10/11/17 21:15 Blood Blood Culture - Final Assessment and Plan (1) Septic arthritis of left ankle Narrative/Plan: 52-year-old male presents the emergency center with inability to bear weight to his left ankle. The patient has had some new orthotic boot manufactured in a developed a small ulcer on the dorsum of the left foot. This apparently was from a grommet from an orthotic. This was completely healed and was evaluated but was still having ongoing difficulties with ankle area. Is actively following up with orthopedic foot and ankle. The patient does have a boot that was designed that he was not wearing when he came to the office and understands it is important that he wears this when he is at work to protect his ankle from the [place] changes. Patient however now has high-grade fever chills leukocytosis and laboratories: Positive blood culture with gram-positive cocci. The patient did have aspiration per orthopedic ankle grossly purulent material was found. Originally the plan was to go to the operating him in the morning but as the patient felt worsening sepsis he is no scheduled operating room this afternoon for the incision and drainage of this abscess. Deep cultures and pathology will also be sent. Antibiotic therapy is altered from vancomycin to daptomycin. In hopes to have a more rapid bacteriocidal activity given his rapidly declining status. Enhance glucose control be important part of his healing. Leukocytosis record related to his current sepsis. There is evidence of possible culture and he will require follow blood cultures in the morning. He was monitored for any persistence of his bacteremia. There will be a coordinated effort between orthopedic ankle and infectious disease as to the care at discharge. 10/13/2017 reveals the patient still needs intensive care unit after surgery with ongoing sepsis. Continues to have fever and leukocytosis and difficulties with acute lung injury and now elevated creatinine to 2.0. Patient continues to be resuscitated and has had some improvement but minimal at this point in time. He will continue with maneuvers to improve his fever maintain his hydration and antibiotic therapy continues with daptomycin for both staph aureus and MRSA, blood culture and aspirate from the ankle are still showing staph aureus final susceptibility is pending. Patient aware that if he improves he will be receiving a jg completed a long course of IV antibiotic therapy for this extensive infection. Leukocytosis directly related to the sepsis 10/14/2017 the patient remains in intensive care unit, high flow oxygen is being utilized for his acute lung injury. His creatinine has increased further is now 2.0. Urine output is adequate. He is symptomatically stable is having difficulties with shortness of breath. Pain at the foot and ankle is predictable but the significant swelling history improving after surgical incision and drainage. Ulceration is treated with a medical history dressing. If there is no further marked improvement by tomorrow the patient will likely go back to the operating him for further incision and drainage to the site. The case is discussed with the orthopedic surgeon. 10/15/2017 the patient is noted had a decline of his status and his required intubation with sedation mechanical ventilation and is now much more comfortable. His pulmonary status is improved with the intervention. He has not requiring vasopressor therapy. We'll do blood cultures verified MSSA and antibiotic therapy was transitioned to high dose cefazolin. The patient is evaluated in conjunction with the orthopedic surgeon and the plan is for the patient to have further debridement of the ankle tomorrow to ensure there is complete drainage of any abscess at that joint site given the progression of his underlying illness. Fortunately he has not hemodynamic stable and is having improvement of his leukocytosis. We'll expect as a sepsis improves his pulmonary injury will improve also. His creatinine peaked at 2.10 now down to 2.0 and nephrology has evaluated. Follow blood cultures to ensure clearance of his bacteremia. Echocardiogram without evidence of vegetations. Is not the case is discussed with the orthopedic surgeon as well as the patient' s . 10/16/2017 the patient's been taking to the operating room today for further debridement of the left ankle. Some necrotic bone was debrided but no further large pockets of abscess were seen. Wound vacs are applied. We'll continue his high-dose antibiotic therapy for his MSSA infection from the septic arthritis left ankle. There are several evidences of improvement today, still requires no vasopressor therapy. We'll expect as he starting to improve we need to start in the next day or so. Once he is evidence of clearance of his bacteremia will need IV access placed for his long-term IV antibiotic therapy. 10/17/2017 patient is hemodynamically stable without acute no difficulties today. He over did not do well with a weaning trial. 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 He is hemodynamic stable and his adequate urinary output. We'll continue high-dose cefazolin and supportive care. It is likely that the wound vacs removed tomorrow with further evaluation of the ankle wounds at that time. Supportive care continues he's had a slight improvement of his creatinine and his sodium is improving. 10/18/2017 the patient remains medically stable and that her vasopressor therapy. Insulin drip is reduced. He did not do well with weaning trial today with significant hypertensive response. With the medications is better at this time. Acute renal failure has resolved leukocytosis is trending to improvement. And there is no negative blood culture from October 17. If the patient improves we'll transition to alternative IV access was for a dual lumen PICC line to be placed this will help us transition to his outpatient intravenous antibiotic therapy when he is improved. The wound VAC is removed at this point in time. Saline moistened opticell silver is applied without difficulty. This will be changed every other day. Pulmonary critical care will continue to move toward extubation. 10/21/2017 patient continues to have respiratory failure 10/21/2017 patient continues to have respiratory failure with ongoing intubation sedation and mechanical ventilation he is hemodynamically stable. Remains on insulin drip. Vital respiratory failure the patient will undergo tracheostomy and PEG tube placement later this week. 10/22/2017 patient remains intubated sedated paralyzed and mechanically ventilated. Tracheostomy is to happen soon. His MSSA sepsis is under control this point in time is developed ARDS and will require long-term weaning. Fever and leukocytosis have improved no other infections are noted local wound care to the ankle reveals evidence of the improving surgical wounds. Current Visit: Yes Status: Acute Code(s): M00.9 - PYOGENIC ARTHRITIS, UNSPECIFIED SNOMED Code(s): 62851201 (2) Sepsis Current Visit: Yes Status: Acute Priority: Medium Code(s): A41.9 - SEPSIS , UNSPECIFIED ORGANISM SNOMED Code(s): 66119352 (3) Poorly controlled type 2 diabetes mellitus with complication Current Visit: Yes Status: Chronic Code(s): E11.8 - TYPE 2 DIABETES MELLITUS WITH UNSPECIFIED COMPLICATIONS; E11.65 - TYPE 2 DIABETES MELLITUS WITH HYPERGLYCEMIA SNOMED Code(s): 03357297
[2017-10-22 22:55] LABS: Glucose,Whole Blood 146 mg/dL (75-99)
[2017-10-22 23:56] LABS: Glucose,Whole Blood 140 mg/dL (75-99)
[2017-10-23] MEDS: PROPOFOL 1,000 MG in EMPTY BAG 1 BAG IV SCH ×14 (01:30→23:13)
[2017-10-23 01:31] LABS: Glucose,Whole Blood 137 mg/dL (75-99)
[2017-10-23] MEDS: MORPHINE SULFATE 4 MG/ML SYRINGE IVP PRN ×4 (01:55→15:22)
[2017-10-23] MEDS: LABETALOL 5 MG/ML VIAL MDV IVP PRN ×6 (02:13→22:04)
[2017-10-23 03:01] LABS: Glucose,Whole Blood 152 mg/dL (75-99)
[2017-10-23] MEDS: IPRATROPIUM-ALBUTEROL 3 ML NEB INHALATION SCH ×6 (03:02→23:16)
[2017-10-23 04:18] LABS: Glucose,Whole Blood 146 mg/dL (75-99)
[2017-10-23] MEDS: ARTIFICIAL TEARS-HYPROMELLOSE DROPS 15 ML BTL BOTH EYES SCH ×4 (04:27→12:20)
[2017-10-23 04:48] LABS: Anion Gap 9 mmol/L; Blood Urea Nitrogen 25 mg/dL (9-20); Calcium 9.2 mg/dL (8.4-10.2); Carbon Dioxide 27 mmol/L (22-30); Chloride 105 mmol/L (98-107); Glucose 152 mg/dL (74-99); Sodium 141 mmol/L (137-145)
[2017-10-23 05:14] LABS: ABG Base Excess 3.1 mmol/L; ABG HCO3 28 mmol/L (21-25); ABG Oxygen Saturation 97.2 % (94-97); ABG PCO2 47 mmHg (35-45); ABG PH 7.38 (7.35-7.45); ABG PO2 97 mmHg (83-108); ABG TCO2 30 mmol/L (19-24)
[2017-10-23 05:56] LABS: Glucose,Whole Blood 142 mg/dL (75-99)
[2017-10-23 06:12] LABS: HCT 30.5 % (39.0-53.0); HGB 9.4 gm/dL (13.0-17.5); Hypochromasia Moderate; MCH 27.8 pg (25.0-35.0); MCHC 30.9 g/dL (31.0-37.0); MCV 89.9 fL (80.0-100.0); Mean Platelet Volume 9.2; Platelet Count 461 k/uL (150-450); RDW 14.3 % (11.5-15.5); WBC 14.4 k/uL (3.8-10.6)
[2017-10-23] MEDS: METOCLOPRAMIDE 5 MG/ML 2 ML VIAL IVP SCH ×5 (06:37→23:19)
[2017-10-23] MEDS: LEVOTHYROXINE IVP 100 MCG/5 ML VIAL IV SCH (06:37)
[2017-10-23 06:53] LABS: Glucose,Whole Blood 127 mg/dL (75-99)
--- NOTE | 2017-10-23 07:17 | XR ---
EXAMINATION TYPE: XR chest 1V portable DATE OF EXAM: 10/23/2017 Comparison: 10/22/2017 Clinical History: 52-year-old male intubated, respiratory failure Findings: ET tube tip at the level of the medial clavicular heads. NG tube courses below the diaphragm. Right P ICC tip at the upper to mid SVC level. Heart remains enlarged. Diffuse interstitial and patchy airspace opacities increasing at the lung bas es. Continued small pleural effusions. Impression: 1. Correlate for CHF with worsening pulmonary vascular congestion and developing pulmonary edema. 2. Continued small pleural effusions. Worsening bibasilar atelectasis and or consolidation.
--- NOTE | 2017-10-23 07:56 | P.PN ---
Subjective Progress Note Date: 10/23/17 Principal diagnosis: Sepsis and left foot infection with mental status changes Progress note dated 10/19/2017 This is a 52-year-old male with acute hypoxemic respiratory failure secondary to sepsis. He was admitted with a diagnosis of Septic Arthritis Involving the Left Ankle and He Status Post Left Ankle Irrigation and Debridement. He's Postop Day #7. He Wanted Month for Another Irrigation and Debridement, on 10/16 and Is Postop Day #3. Today We Did a Daily Eruption of Sedation. Unfortunately He Did Very Poorly. He Was Not Ready for a Spontaneous Breathing Trial. The patient has a history of acute severe sepsis with positive blood cultures for methicillin sensitive staph aureus, altered mental status acute hypoxemic and hypercapnic respiratory failure with mild ARDS, diabetes mellitus peripheral neuropathy chronic wounds and ulcerations of lower extremities Charcot joints of morbid obesity hypertension hyperlipidemia hypothyroidism acute kidney injury and hypernatremia. I had a long talk with the family today. The understand that by mid next week if the patient does not show improvement, would likely send patient for a tracheostomy and PEG tube. Progress note dated 10/20/2017 A 52-year-old male with a history of acute hypoxemic respiratory failure secondary to sepsis. The patient was admitted with a diagnosis of septic arthritis involving the left ankle and he is status post left ankle irrigation and debridement, postop day #8. He also had an irrigation and debridement a second time and for that when he is postop day #4. The patient had a daily eruption of sedation yesterday and unfortunately did very poorly and again today he had daily eruption of sedation and again did very poorly. His respiratory rate was quite high. Heart rate was very high. The patient went very high. He was not responsive. The patient does not follow simple commands. He may eventually need a tracheostomy and PEG tube placement. I did have a long discussion with his yesterday. In addition, the patient is positive blood culture for methicillin sensitive staph aureus mental status changes acute hypoxemic and hypercapnic respiratory failure mild ARDS based on a PaO2/FiO2 ratio, diabetes peripheral neuropathy chronic wounds and ulcerations of lower extremities Charcot joints morbid obesity hypertension hyperlipidemia hypothyroidism acute kidney injury and hypernatremia. I did mention tracheostomy and PEG tube yesterday with the . Again, the patient has shown no significant improvement over the last 48 hours. Chest x-ray is unchanged. Microbiology is reviewed. White count 17.5, hemoglobin 10.4 platelet count normal. Arterial blood gases show a PaO2 of 74 a PaCO2 of 38 and pH is 7.44. Sodium is 139 potassium 3.8 chloride is 105 CO2 23 BUN and creatinine 24 and 0.78 respectively. The patient's vent settings are the volume assist control mode, rate of 26, tidal volume 500, FiO2 50% and PEEP of 8. The patient's currently on propofol at 50 mics per kilogram per minute, Cleviprex at 21 mg per hour and a D5W IV at KVO. The patient is receiving vital high protein at 20 with a goal of 20. Progress note dated 10/21/2017 52-year-old male with a history of acute hypoxemic respiratory failure secondary to sepsis. The patient was admitted with a diagnosis of septic arthritis involving the left ankle many status post left ankle irrigation and debridement, postop day #9. He also had a second irrigation and he is postop day #5 on that one. Unfortunately, over the weekend, the patient has made no progress in yesterday because of worsening respiratory status, the patient had to be paralyzed. He was given Nimbex 10 mg IV and started on a Nimbex drip. We 'll do [id number] monitoring. Also, yesterday we had issues with his heart rate and blood pressure. We had added some labetalol to his Cleviprex. Finally , the patient's oxygenation worsened suggesting is acute respiratory distress syndrome has worsened. Currently on 70% FiO2 and 12 of PEEP. I did have a long discussion with the on Saturday. I explained that he probably end up with a tracheostomy and PEG tube placed. I will ask the thoracic surgeon about that today. Blood cultures are positive multiple times for methicillin sensitive staph aureus. The patient does have a history of Charcot joints morbid obesity hypertension hyperlipidemia hypothyroidism acute kidney injury and hypernatremia. Currently, the patient's vent settings are the assist control mode rate of 26 tidal volume 500 FiO2 70% PEEP of 12 blood gases show a PaO2 of 69 and a PaCO2 of 53 and a pH 7.32. The patient is on Nimbex at 3 mics per kilogram per minute, propofol 60 mikes per kilogram per minute, Cleviprex at 14 mg an hour, insulin 16 units an hour saline IV at 20 mL an hour and vital high protein and rate of 20 with a goal of 20 mL per hour. Needless to say, the patient's very critically ill. Progress note dated 10/22/2017 52-year-old male with a history of acute hypoxemic respiratory failure secondary to sepsis. The patient was admitted initially admitted with a diagnosis of septic arthritis involving the left ankle and he status post left ankle irrigation and debridement, postop day #10 he had a second procedure done and on that procedure he is postop day #6. The patient has made no progress on the ventilator. I did ask the thoracic surgeon to see him for a tracheostomy and PEG tube placement. She oxygenation and dyssynchronous with the ventilator , the patient was paralyzed. We've also some additional blood pressure control. His blood pressure has been high despite maximal doses of Cleviprex and labetalol IV. Anyway, the patient is scheduled for a tracheostomy and PEG tube on Saturday. This been no changes in his status since that time. The patient has a history of multiple positive blood cultures for methicillin sensitive staph aureus. He does have a history of Charcot joints, morbid obesity, hypertension, hyperlipidemia, hypothyroidism, acute kidney injury, and hypernatremia. Currently, the patient's on the volume assist control modality, rate is 26 tidal volume is 500 FiO2 70% PEEP of 12. Arterial blood gases show a PaO2 of 139 a PaCO2 40 and a pH of 7.36. If the FiO2 we dropped down to 55%. The patient receiving a saline IV at 20 mL an hour propofol 60 mikes per kilogram per minute insulin drip at 13 units per hour Nimbex at 4 mics per kilogram per minute vital high protein at 20 with a goal of 20 mL an hour and the Cleviprex is off. Sodium is 141 potassium 4.4 chloride 105 CO2 27 and BUN and creatinine is 27 0.79. CBC is pending Chest x-ray shows diffuse infiltrates with possible small effusions. Endotracheal tube in good position. Progress note dated 10/23/2017 52-year-old male with a history of acute hypoxemic respiratory failure sepsis and acute respiratory distress syndrome. The patient was initially admitted with a diagnosis of septic arthritis involving the left ankle and he status post left ankle irrigation and debridement, postop day #11. In addition, he had a second irrigation/debridement and he is postop day #7 on that procedure. The patient has made no progress in regards to weaning and extubation. The patient has been dyssynchronous on the ventilator and required heavy sedation and paralysis. He is going to have a tracheostomy and PEG tube placement today. I've had ongoing discussions with his . Also, we had issues with blood pressure control is required both Cleviprex and IV labetalol for that. He does have positive blood cultures for methicillin sensitive staph aureus. Being treated for that. He has a history of Charcot joints morbid obesity hypertension hyperlipidemia hypothyroidism acute kidney injury and hypernatremia. The patient's currently on the ventilator with the same settings. He is receiving a saline IV at 20 mL an hour propofol 70 mics per kilogram per minute and Nimbex at 4 mics per kilogram per minute. His arterial blood gases show a PaO2 of 97 a PaO2 of 47 and a pH of 7.38. The patient's chest x-ray shows worsening bilateral infiltrates. Labs x-rays a medications are all reviewed. Objective - Vital Signs Vital signs: Vital Signs Temp 98.7 F 10/23/17 07:11 Pulse 78 10/23/17 07:11 Resp 26 H 10/23/17 07:11 BP 130/60 10/23/17 07:11 Pulse Ox 96 10/23/17 07:11 Intake & Output 10/22/17 10/23/17 10/23/17 18:59 06:59 18:59 Intake Total 6897.567 6277.413 20 Output Total 2575 1760 250 Balance -1173.307 -405.587 -230 Weight 163.2 kg 162.6 kg Intake: IV 10 220 20 0.9 NS 10 220 20 Intake, IV Titration 8641.280 8557.413 Amount Cisatracurium 200 mg In 551.684 200 Sodium Chloride 0.9% 180 ml @ 1 MCG/KG/MIN 9.69 mls/hr IV .[id number] [facility] Rx #:[id number] Insulin Regular 100 unit 99.509 83.746 In Sodium Chloride 0.9% 100 ml @ Per Protocol IV .Q0M [facility] Rx#:[id number] Propofol 1,000 mg In 560.500 730.667 Empty Bag 1 bag @ Per Protocol IV .Q0M [facility] Rx#: [id number] Oral 40 Tube Feeding 140 120 0 Output: Urine 2575 1760 250 Other: Voiding Method Indwelling Catheter Indwelling Catheter # Voids 1 ABP, PAP, CO, CI - Last Documented Arterial Blood Pressure 146/61 - Exam No acute distress, sedated and paralyzed, with a endotracheal tube and NG tube noted HEENT examination is grossly unremarkable. Mucous membranes are moist. Neck supple. Full range of motion. No adenopathy thyromegaly or neck vein distention. Cardiovascular examination reveals regular rhythm rate. S1-S2 normal. No S3 or S4. No discernible murmur noted. Lungs reveal diminished breath sounds. Coarse bilateral rhonchi are noted. Breath sounds are equal bilaterally. No crackles. Abdomen soft bowel sounds are heard. No masses or tenderness. Extremities are intact. Both lower extremities are wrapped in Geoffrey wraps. Also examination cannot be done. Edema is clearly present though.. Skin is without rash or lesion. Neurologic examination could not be performed - Labs CBC & Chem 7: 10/23/17 04:00 10/23/17 04:00 Labs: Abnormal Lab Results - Last 24 Hours (Table) 10/22/17 10/22/17 10/22/17 Range/Units 08:07 09:03 09:59 WBC (3.8-10.6) k/uL RBC (4.30-5.90) m/uL Hgb (13.0-17.5) gm/dL Hct (39.0-53.0) % MCHC (31.0-37.0) g/dL Plt Count (150-450) k/uL ABG pCO2 (35-45) mmHg ABG HCO3 (21-25) mmol/L ABG Total CO2 (19-24) mmol/L ABG O2 Saturation (94-97) % BUN (9-20) mg/dL Glucose (74-99) mg/dL POC Glucose (mg/dL) 148 H 138 H 137 H (75-99) mg/dL 10/22/17 10/22/17 10/22/17 Range/Units 11:00 13:02 14:09 WBC (3.8-10.6) k/uL RBC (4.30-5.90) m/uL Hgb (13.0-17.5) gm/dL Hct (39.0-53.0) % MCHC (31.0-37.0) g/dL Plt Count (150-450) k/uL ABG pCO2 (35-45) mmHg ABG HCO3 (21-25) mmol/L ABG Total CO2 (19-24) mmol/L ABG O2 Saturation (94-97) % BUN (9-20) mg/dL Glucose (74-99) mg/dL POC Glucose (mg/dL) 135 H 159 H 142 H (75-99) mg/dL 10/22/17 10/22/17 10/22/17 Range/Units 14:54 16:14 18:05 WBC (3.8-10.6) k/uL RBC (4.30-5.90) m/uL Hgb (13.0-17.5) gm/dL Hct (39.0-53.0) % MCHC (31.0-37.0) g/dL Plt Count (150-450) k/uL ABG pCO2 (35-45) mmHg ABG HCO3 (21-25) mmol/L ABG Total CO2 (19-24) mmol/L ABG O2 Saturation (94-97) % BUN (9-20) mg/dL Glucose (74-99) mg/dL POC Glucose (mg/dL) 137 H 130 H 139 H (75-99) mg/dL 10/22/17 10/22/17 10/22/17 Range/Units 19:01 20:05 20:53 WBC (3.8-10.6) k/uL RBC (4.30-5.90) m/uL Hgb (13.0-17.5) gm/dL Hct (39.0-53.0) % MCHC (31.0-37.0) g/dL Plt Count (150-450) k/uL ABG pCO2 (35-45) mmHg ABG HCO3 (21-25) mmol/L ABG Total CO2 (19-24) mmol/L ABG O2 Saturation (94-97) % BUN (9-20) mg/dL Glucose (74-99) mg/dL POC Glucose (mg/dL) 132 H 147 H 140 H (75-99) mg/dL 10/22/17 10/22/17 10/22/17 Range/Units 22:10 22:53 23:54 WBC (3.8-10.6) k/uL RBC (4.30-5.90) m/uL Hgb (13.0-17.5) gm/dL Hct (39.0-53.0) % MCHC (31.0-37.0) g/dL Plt Count (150-450) k/uL ABG pCO2 (35-45) mmHg ABG HCO3 (21-25) mmol/L ABG Total CO2 (19-24) mmol/L ABG O2 Saturation (94-97) % BUN (9-20) mg/dL Glucose (74-99) mg/dL POC Glucose (mg/dL) 135 H 146 H 140 H (75-99) mg/dL 10/23/17 10/23/17 10/23/17 Range/Units 01:29 02:58 04:00 WBC (3.8-10.6) k/uL RBC (4.30-5.90) m/uL Hgb (13.0-17.5) gm/dL Hct (39.0-53.0) % MCHC (31.0-37.0) g/dL Plt Count (150-450) k/uL ABG pCO2 (35-45) mmHg ABG HCO3 (21-25) mmol/L ABG Total CO2 (19-24) mmol/L ABG O2 Saturation (94-97) % BUN 25 H (9-20) mg/dL Glucose 152 H (74-99) mg/dL POC Glucose (mg/dL) 137 H 152 H (75-99) mg/dL 10/23/17 10/23/17 10/23/17 Range/Units 04:00 04:17 05:04 WBC 14.4 H (3.8-10.6) k/uL RBC 3.40 L (4.30-5.90) m/uL Hgb 9.4 L (13.0-17.5) gm/dL Hct 30.5 L (39.0-53.0) % MCHC 30.9 L (31.0-37.0) g/dL Plt Count 461 H (150-450) k/uL ABG pCO2 47 H (35-45) mmHg ABG HCO3 28 H (21-25) mmol/L ABG Total CO2 30 H (19-24) mmol/L ABG O2 Saturation 97.2 H (94-97) % BUN (9-20) mg/dL Glucose (74-99) mg/dL POC Glucose (mg/dL) 146 H (75-99) mg/dL 10/23/17 10/23/17 Range/Units 05:55 06:52 WBC (3.8-10.6) k/uL RBC (4.30-5.90) m/uL Hgb (13.0-17.5) gm/dL Hct (39.0-53.0) % MCHC (31.0-37.0) g/dL Plt Count (150-450) k/uL ABG pCO2 (35-45) mmHg ABG HCO3 (21-25) mmol/L ABG Total CO2 (19-24) mmol/L ABG O2 Saturation (94-97) % BUN (9-20) mg/dL Glucose (74-99) mg/dL POC Glucose (mg/dL) 142 H 127 H (75-99) mg/dL Microbiology - Last 24 Hours (Table) 10/17/17 04:07 Blood Culture - Final Blood No Growth after 144 hours 10/17/17 05:50 Blood Culture - Preliminary Blood No Growth after 120 hours Assessment and Plan Assessment: Assessment Acute septic arthritis of the left ankle, status post left ankle irrigation with debridement, postoperative day #9and subsequent irrigation did the debridement, postop day #5 Acute hypoxemic respiratory failure requiring intubation and mechanical ventilation with failure to wean from mechanical ventilation despite daily interruption of sedation and spontaneous breathing trial Failure to wean from mechanical ventilation, with anticipated tracheostomy tomorrow Acute severe sepsis with positive blood cultures for methicillin sensitive Staphylococcus Mental status changes, set secondary to sepsis encephalopathy Moderate ARDS with a PF ratio of 176 Diabetes mellitus with poor sugar control Severe peripheral neuropathy History of chronic wounds and ulcerations of the lower extremities with cellulitis Charcot joints Morbid obesity Hypertension Hyperlipidemia Hypothyroidism Acute kidney injury Hypernatremia Plan: Plan dated 10/19/2017 The patient did have a daily eruption of sedation and a spontaneous breathing trial. His mental status was poor. His heart rate went up quite high with increased respiratory rate and blood pressure. The patient's mental status was poor as I mention that he was not ready for extubation. I did have a long talk with the family. They do understand that the patient may end up requiring a tracheostomy and PEG tube. He'll continue on antibiotics. No additional recommendations are made. Prognosis is poor. We will use Cleviprex for blood pressure control. We will discontinue all the other medications that were being used for blood pressure. She can titrate off of Plavix better. We sedate the patient. We will use a small amount of narcotic. Additional sedation. We'll place the patient back on the mechanical ventilator. We'll resume nutrition. Additional recommendations and suggestions are forthcoming. Plan dated 10/20/2017 Again the patient had a daily eruption of sedation and did very poorly. He was not a candidate for spontaneous breathing trial. He remains on Cleviprex at a relatively higher dose for blood pressure control and propofol. The patient is getting nutrition. I did talk to the yesterday. I let her know that the patient was not doing well and may be headed towards tracheostomy and PEG tube placement. He remains on updrafts every 4 [id number]. Not able to be weaned today. The patient blood pressure 1 of over 200 and his respiratory rate went up over 40 on holding of sedation. Chest x-ray stable. No additional recommendations are made. Prognosis is guarded. And he may end up with a trach and PEG. Critical care time 33 minutes Plan dated 10/21/2017 The patient did miserably over the weekend. Showed no progress with his daily interruption of sedation. The patient had to be paralyzed her. In addition, the patient needed additional blood pressure medication for blood pressure control. We will consult the thoracic surgeon for PEG and tracheostomy tube. Overall prognosis is poor he continues on all appropriate medications. Superflous and unnecessary medications are discontinued. The patient will continue on Nimbex propofol Cleviprex insulin and nutrition Critical care time 37 minutes Plan dated 10/22/2017 The patient continues to do poorly. By P/F criteria, he does have ARDS. The patient's FiO2 though, could be dropped to 55% today. He remains on PEEP of 12. The patient will likely have a tracheostomy and PEG tube done tomorrow. I did speak to the yesterday. She understands prognosis. The patient remained on number different medications including propofol insulin Nimbex. Cleviprex his been weaned off. He's continuing to receive nutrition. Labs and x-rays are reviewed. Again prognosis is very poor. Critical care time 38 minutes Plan dated 10/23/2017 The patient continues to do poorly. The patient will have a tracheostomy PEG tube placed today. We'll keep on the same that settings for now. We will make any FiO2 of PEEP changes at this time. The patient is getting a result of 2 feeds are on hold for the procedure. The patient is receiving saline at 20 mL an hour. The patient's on propofol 70 mics per kilogram per minute and Nimbex at 4 mics per kilogram per minute with [id number] monitoring. His overall prognosis remains poor. The patient has not made any substantial improvement. Chest x-ray today is a bit worse. Additional recommendations and suggestions are forthcoming. Critical care time is 35 minutes Time with Patient: Greater than 30
[2017-10-23 08:13] LABS: Glucose,Whole Blood 128 mg/dL (75-99)
[2017-10-23] MEDS: CHLORHEXIDINE GLUCONATE 15 ML CUP MUCOUS MEM SCH ×2 (08:18→21:12)
[2017-10-23] MEDS: HEPARIN SODIUM,PORCINE 5,000 UNIT/ML 1 ML VIAL SQ SCH ×4 (08:18→23:18)
[2017-10-23] MEDS: FUROSEMIDE 10 MG/ML 2 ML VIAL IV SCH (08:18)
[2017-10-23] MEDS: PANTOPRAZOLE 40 MG/10 ML VIAL IV SCH (08:18)
[2017-10-23] MEDS: MAGNESIUM SULFATE-D5W PMX 1 GM in DEXTROSE/WATER 1 100ML.BAG IVPB SCH ×2 (08:18→10:15)
[2017-10-23] MEDS: ceFAZolin IN SWFI 2 GM/20 ML SYRINGE IVP SCH ×4 (08:23→23:18)
[2017-10-23 09:09] LABS: Glucose,Whole Blood 151 mg/dL (75-99)
[2017-10-23 10:13] LABS: Glucose,Whole Blood 170 mg/dL (75-99)
[2017-10-23 11:08] LABS: Glucose,Whole Blood 137 mg/dL (75-99)
[2017-10-23 12:06] LABS: Glucose,Whole Blood 173 mg/dL (75-99)
[2017-10-23 12:15] LABS: Glucose,Whole Blood 151 mg/dL (75-99)
--- NOTE | 2017-10-23 12:16 | P.PN ---
Subjective 52-year-old admitted to ICU secondary to sepsis leading to acute respiratory distress syndrome patient remains intubated on ventilator is being managed by cork insulator patient underwent irrigation and the bride meant of the left ankle twice during this hospitalization. Patient has MSSA in the joint and patient is presently on ceftezole and for that reason. Patient is intubated sedated and patient is on Precedex with anticipation of extubation tomorrow. 10/20/2017 Patient remains intubated patient is on high-dose of IV insulin and requiring large amounts of sedation remains in hypoxic respiratory failure had a low- grade fever today if he continues to have low-grade fevers or has a high-grade fever repeat blood cultures will be obtained 10/21/2017 Patient maintains intubated, still remains on 70% FiO2 and cork insulator his considering tracheostomy and PEG tube placement. Patient had low-grade fevers yesterday. Patient is on paralytic agents now with fairly well-controlled blood pressure, clevidipine was discontinued 10/22/2017 Patient's FiO2 has come down to 50% today no other significant changes were made to vent. 10/23/2017 Patient is going for a tracheostomy and PEG tube placement patient remains an FiO2 of 55% plan is to this can you paralytics after tracheostomy. Objective - Vital Signs Vital signs: Vital Signs Temp 98.3 F 10/23/17 08:00 Pulse 80 10/23/17 11:43 Resp 26 H 10/23/17 11:00 BP 130/60 10/23/17 07:11 Pulse Ox 98 10/23/17 11:00 Intake & Output 10/22/17 10/23/17 10/23/17 18:59 06:59 18:59 Intake Total 0474.001 7866.413 309.867 Output Total 2575 1760 2150 Balance -1173.307 -405.587 -1840.133 Weight 163.2 kg 162.6 kg Intake: IV 10 220 100 0.9 NS 10 220 100 Intake, IV Titration 6605.952 3507.413 209.867 Amount Cisatracurium 200 mg In 551.684 200 Sodium Chloride 0.9% 180 ml @ 1 MCG/KG/MIN 9.69 mls/hr IV .[id number] [facility] Rx #:[id number] Insulin Regular 100 unit 99.509 83.746 9.867 In Sodium Chloride 0.9% 100 ml @ Per Protocol IV .Q0M [facility] Rx#:[id number] Propofol 1,000 mg In 560.500 730.667 200 Empty Bag 1 bag @ Per Protocol IV .Q0M [facility] Rx#: [id number] Oral 40 Tube Feeding 140 120 0 Output: Urine 2575 1760 2150 Other: Voiding Method Indwelling Catheter Indwelling Catheter Indwelling Catheter # Voids 1 ABP, PAP, CO, CI - Last Documented Arterial Blood Pressure 151/58 - Exam PHYSICAL EXAMINATION: GENERAL: Patient is intubated sedated, morbidly obese NG tube in place please refer to cork insulator dictation for further details of went settings, sedation score. HEENT: Pupils are round and equally reacting to light. EOMI. No scleral icterus. No conjunctival pallor. Normocephalic, atraumatic. No pharyngeal erythema. No thyromegaly. CARDIOVASCULAR: S1 and S2 present. No murmurs, rubs, or gallops. PULMONARY: Chest is clear to auscultation, no wheezing or crackles. ABDOMEN: Soft, nontender, nondistended, normoactive bowel sounds. No palpable organomegaly. MUSCULOSKELETAL: Patient left leg is wrapped in Geoffrey bandages EXTREMITIES: No cyanosis, clubbing, or pedal edema. NEUROLOGICAL: Unable to assess due to the above-mentioned reasons SKIN: No rashes. - Labs CBC & Chem 7: 10/23/17 04:00 10/23/17 04:00 Labs: Abnormal Lab Results - Last 24 Hours (Table) 10/22/17 10/22/17 10/22/17 Range/Units 13:02 14:09 14:54 WBC (3.8-10.6) k/uL RBC (4.30-5.90) m/uL Hgb (13.0-17.5) gm/dL Hct (39.0-53.0) % MCHC (31.0-37.0) g/dL Plt Count (150-450) k/uL ABG pCO2 (35-45) mmHg ABG HCO3 (21-25) mmol/L ABG Total CO2 (19-24) mmol/L ABG O2 Saturation (94-97) % BUN (9-20) mg/dL Glucose (74-99) mg/dL POC Glucose (mg/dL) 159 H 142 H 137 H (75-99) mg/dL 10/22/17 10/22/17 10/22/17 Range/Units 16:14 18:05 19:01 WBC (3.8-10.6) k/uL RBC (4.30-5.90) m/uL Hgb (13.0-17.5) gm/dL Hct (39.0-53.0) % MCHC (31.0-37.0) g/dL Plt Count (150-450) k/uL ABG pCO2 (35-45) mmHg ABG HCO3 (21-25) mmol/L ABG Total CO2 (19-24) mmol/L ABG O2 Saturation (94-97) % BUN (9-20) mg/dL Glucose (74-99) mg/dL POC Glucose (mg/dL) 130 H 139 H 132 H (75-99) mg/dL 10/22/17 10/22/17 10/22/17 Range/Units 20:05 20:53 22:10 WBC (3.8-10.6) k/uL RBC (4.30-5.90) m/uL Hgb (13.0-17.5) gm/dL Hct (39.0-53.0) % MCHC (31.0-37.0) g/dL Plt Count (150-450) k/uL ABG pCO2 (35-45) mmHg ABG HCO3 (21-25) mmol/L ABG Total CO2 (19-24) mmol/L ABG O2 Saturation (94-97) % BUN (9-20) mg/dL Glucose (74-99) mg/dL POC Glucose (mg/dL) 147 H 140 H 135 H (75-99) mg/dL 10/22/17 10/22/17 10/23/17 Range/Units 22:53 23:54 01:29 WBC (3.8-10.6) k/uL RBC (4.30-5.90) m/uL Hgb (13.0-17.5) gm/dL Hct (39.0-53.0) % MCHC (31.0-37.0) g/dL Plt Count (150-450) k/uL ABG pCO2 (35-45) mmHg ABG HCO3 (21-25) mmol/L ABG Total CO2 (19-24) mmol/L ABG O2 Saturation (94-97) % BUN (9-20) mg/dL Glucose (74-99) mg/dL POC Glucose (mg/dL) 146 H 140 H 137 H (75-99) mg/dL 10/23/17 10/23/17 10/23/17 Range/Units 02:58 04:00 04:00 WBC 14.4 H (3.8-10.6) k/uL RBC 3.40 L (4.30-5.90) m/uL Hgb 9.4 L (13.0-17.5) gm/dL Hct 30.5 L (39.0-53.0) % MCHC 30.9 L (31.0-37.0) g/dL Plt Count 461 H (150-450) k/uL ABG pCO2 (35-45) mmHg ABG HCO3 (21-25) mmol/L ABG Total CO2 (19-24) mmol/L ABG O2 Saturation (94-97) % BUN 25 H (9-20) mg/dL Glucose 152 H (74-99) mg/dL POC Glucose (mg/dL) 152 H (75-99) mg/dL 10/23/17 10/23/17 10/23/17 Range/Units 04:17 05:04 05:55 WBC (3.8-10.6) k/uL RBC (4.30-5.90) m/uL Hgb (13.0-17.5) gm/dL Hct (39.0-53.0) % MCHC (31.0-37.0) g/dL Plt Count (150-450) k/uL ABG pCO2 47 H (35-45) mmHg ABG HCO3 28 H (21-25) mmol/L ABG Total CO2 30 H (19-24) mmol/L ABG O2 Saturation 97.2 H (94-97) % BUN (9-20) mg/dL Glucose (74-99) mg/dL POC Glucose (mg/dL) 146 H 142 H (75-99) mg/dL 10/23/17 10/23/17 10/23/17 Range/Units 06:52 08:12 09:08 WBC (3.8-10.6) k/uL RBC (4.30-5.90) m/uL Hgb (13.0-17.5) gm/dL Hct (39.0-53.0) % MCHC (31.0-37.0) g/dL Plt Count (150-450) k/uL ABG pCO2 (35-45) mmHg ABG HCO3 (21-25) mmol/L ABG Total CO2 (19-24) mmol/L ABG O2 Saturation (94-97) % BUN (9-20) mg/dL Glucose (74-99) mg/dL POC Glucose (mg/dL) 127 H 128 H 151 H (75-99) mg/dL 10/23/17 10/23/17 10/23/17 Range/Units 10:10 11:06 12:04 WBC (3.8-10.6) k/uL RBC (4.30-5.90) m/uL Hgb (13.0-17.5) gm/dL Hct (39.0-53.0) % MCHC (31.0-37.0) g/dL Plt Count (150-450) k/uL ABG pCO2 (35-45) mmHg ABG HCO3 (21-25) mmol/L ABG Total CO2 (19-24) mmol/L ABG O2 Saturation (94-97) % BUN (9-20) mg/dL Glucose (74-99) mg/dL POC Glucose (mg/dL) 170 H 137 H 173 H (75-99) mg/dL Microbiology - Last 24 Hours (Table) 10/17/17 05:50 Blood Culture - Final Blood No Growth after 144 hours 10/17/17 04:07 Blood Culture - Final Blood No Growth after 144 hours Assessment and Plan Plan: Acute septic arthritis of the left ankle, status post left ankle irrigation with debridement, twice during this hospitalization and patient has MSSA and patient is on ceftezolin. Acute hypoxemic respiratory failure requiring intubation and mechanical ventilation with failure to wean from mechanical ventilation, possibility of ARDS Acute severe sepsis with positive blood cultures for methicillin sensitive Staphylococcus Mental status changes, set secondary to sepsis encephalopath Diabetes mellitus: Per can you present regimen titrate as necessary Severe peripheral neuropathy History of chronic wounds and ulcerations of the lower extremities with cellulitis Charcot joints Morbid obesity Hypertension Hyperlipidemia Hypothyroidism Acute kidney injury
[2017-10-23] MEDS ORDERED: IV FLUID CONTINUATION 350 ML IV ONE (13:20)
[2017-10-23] MEDS ORDERED: ROCURONIUM BROMIDE 10 MG/ML 10 ML VIAL IV ONE (13:20)
[2017-10-23] MEDS ORDERED: CISATRACURIUM 2 MG/ML 5 ML VIAL IV ONE (13:20)
[2017-10-23 14:30] LABS: Glucose,Whole Blood 158 mg/dL (75-99)
--- NOTE | 2017-10-23 16:04 | P.PCN ---
Date of Procedure: 10/23/17 Preoperative Diagnosis: Respiratory failure and inability to wean from vent Postoperative Diagnosis: Same Procedure(s) Performed: Tracheostomy Anesthesia: ALAN Surgeon: Darwin Zepeda Estimated Blood Loss (ml): 15 Pathology: none sent Condition: stable Disposition: ICU Indications for Procedure: The patient has been unable to wean from the vent. He has multi comorbidities. Operative Findings: No significant abnormalities were seen. Description of Procedure: With the patient spine position, under benefit of general anesthesia with endotracheal tube already in place, we prepped and draped sterile fashion. We made a small transverse incision 2 fingerbreadths above the sternal notch. We divided superficial fascias transversely and split strap muscles in midline. We established excellent hemostasis. We then placed the first tracheal ring on traction and divided the second through fourth tracheal rings longitudinally. We then opened this opening with a tracheal transportation agent. We kanu the endotracheal tube up above this opening and placed a #9 Bivona foam cuff tube. Foam cuff expanded nicely. We are able to ventilate nicely with this tube. We closed the corners of the incision with 3-0 nylon. The same sutures were utilized to secure the flanges of the trach tube. Sterile dressings were applied. The patient tolerated the procedure well and was returned to intensive care in stable condition.
[2017-10-23 16:30] LABS: Glucose,Whole Blood 202 mg/dL (75-99)
[2017-10-23 17:46] LABS: Glucose,Whole Blood 179 mg/dL (75-99)
[2017-10-23] MEDS: INSULIN REGULAR 100 UNIT in SODIUM CHLORIDE 0.9% 100 ML IV SCH (17:46)
[2017-10-23 19:12] LABS: Glucose,Whole Blood 183 mg/dL (75-99)
[2017-10-23] MEDS: LACTATED RINGERS 1,000 ML IV SCH (19:13)
[2017-10-23 19:43] LABS: Glucose,Whole Blood 178 mg/dL (75-99)
[2017-10-23 21:10] LABS: Glucose,Whole Blood 180 mg/dL (75-99)
--- NOTE | 2017-10-23 21:29 | P.PN ---
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 The patient is been having some difficulties with his left ankle and following with the orthopedic surgeon. Because of some discomfort at the joint he was measured and given a new bracing device for the foot and ankle. However grommet on the dorsum of the foot resulted in a bit of an ulcer and he was concerned and sought care in the office. The patient had difficulty making the appointment because of the weather and has significant distance from work to the office and reschedule. When he came to the office earlier this week the ulceration had healed and he was feeling better but was still having some swelling to the ankle area. He had no fever or chills at the time of presentation to the office, but did have the swelling to the ankle area for which she had a specialty boot that have been designed that he was not wearing that day. He however presents to the emergency center because of the sudden onset of inability to bear weight to the ankle because of the amount of pain that he started to have. Shortly thereafter he became febrile and has had a rapid decline in his status with evidence of sepsis and presentation to the intensive care unit. The case is discussed with the line leader as well as the orthopedic foot and ankle specialist. Given his rapid decline in status he'll go to the operating room this afternoon. The patient is acutely ill with fever chills generalized weakness and malaise and some alteration of his mental status 10/13/2017 patient remains in intensive care unit with ongoing sepsis. Appears to have acute lung injury and also has an elevation of his creatinine likely with an acute renal injury also occurring from his sepsis. Laboratories revealed evidence of staph aureus await final susceptibility. Follow blood cultures in process reasonable cultures are positive. Patient continues to have some ongoing fevers and is admitted of nausea with the response to Zofran. He is still in a warm flushed phase of sepsis and hopefully now that he has been resuscitated will have further improvement of his status. 10/14/2017 patient does have some improvement today. He is not hypotensive not requiring vasopressors but is still on high flow oxygen for his acute lung injury. He has had fevers but down to 99.9 still feels poorly and has significant pain of the left foot and ankle area. 10/15/2017 the patient had deterioration of his respiratory status last night with his acute lung injury and developing early ARDS. He required intubation with sedation and mechanical ventilation. With improved sedation he is quite comfortable today and is synchronous with the vent with adequate oxygenation and improved blood gas. The patient is quite comfortable at this time and receiving tube feeds for his nutritional needs. Fever and leukocytosis are trending down 10/16/2017 is noted the patient remains ventilated as well as with intubation and sedation. He is quite comfortable today. Has been taking back to the operating room for further evaluation of the medial aspect of the right ankle, some infected bone was debrided but no further extensive pockets of purulence were found. Wound VAC applied. 10/17/2017 patient has had a weaning trial today but it was not successful in counseling. Remains intubated sedated and mechanically ventilated. He does to do quite comfortable. Wound vacs are in place after the debridement of yesterday to the left foot. Fever has trended down and he is hemodynamically stable 10/18/2017 the patient had an attempt for a weaning trial but this however did not go well the patient became significantly hypertensive. With multiple medications this is now settled. Today the wound vacs will be changed further care will be given. Is much more calm this afternoon and hopefully further weaning trials will go well over the next few days. The fever has resolved and there is now a negative blood culture. 2017 patient remains in ICU intubated sedated and paralyzed due to the ARDS which is resulting in snf respiratory failure. 10/22/2017 reveals the patient to have a slightly improved ventilatory status he is down to 55% FiO2 and PEEP is at 12. He has been evaluated by Dr. Zepeda for tracheostomy and PEG tube placement in the near future. The patient seems to be quite comfortable and with the current sedation and paralysis. Ventilating well 10/23/2017 patient is post-tracheostomy and PEG tube placement today.the patient is being readied for transition to a ventilator facility. Objective - Vital Signs Vital signs: Vital Signs Temp 100.1 F H 10/23/17 16:00 Pulse 90 10/23/17 19:55 Resp 25 H 10/23/17 19:00 BP 130/60 10/23/17 07:11 Pulse Ox 96 10/23/17 19:00 Intake & Output 10/23/17 10/23/17 10/24/17 06:59 18:59 06:59 Intake Total 1354.413 870.127 132.441 Output Total 1760 3030 100 Balance -405.587 -2159.873 32.441 Weight 162.6 kg Intake: IV 220 240 20 0.9 NS 220 240 20 Intake, IV Titration 1014.413 630.127 112.441 Amount Cisatracurium 200 mg In 200 Sodium Chloride 0.9% 180 ml @ 1 MCG/KG/MIN 9.69 mls/hr IV .[id number] [facility] Rx #:[id number] Insulin Regular 100 unit 83.746 48.127 12.441 In Sodium Chloride 0.9% 100 ml @ Per Protocol IV .Q0M [facility] Rx#:[id number] Propofol 1,000 mg In 730.667 582.000 100 Empty Bag 1 bag @ Per Protocol IV .Q0M [facility] Rx#: [id number] Tube Feeding 120 0 Output: Urine 1760 3025 100 Estimated Blood Loss 5 Other: Voiding Method Indwelling Catheter Indwelling Catheter ABP, PAP, CO, CI - Last Documented Arterial Blood Pressure 153/64 - Exam 52-year-old male presents to Hospital feeling acutely ill found to have evidence of fever and then rapidly developed sepsis, HEENT: Anicteric conjunctiva are pink and moist nasal mucosa grossly intact without significant lesions, remains sedated and tracheostomy has beehe site Neck: The neck is supple without significant lymphadenopathy or thyromegaly. Lungs: Good bilateral air entry with harsh breath sounds Heart: regular with an audible S1 and S2 soft S4 There is no significant murmur click or rub, PMI was nondisplaced. Abdomen: Obese Positive bowel sounds soft and nontender without palpable masses or organomegaly. There was no guarding or rebound. Extremities: The upper extremities have excellent pulses they are symmetric, no significant petechiae or telangiectasia. No splinter hemorrhages were noted. Right lower extremity has evidence of the prior great toe amputation which is well healed. Left lower extremity reveals evidence of the surgical incisions with silver dressings in place. There is still some swelling but the extensive swelling at the ankle has started to improve. There is no inguinal lymphadenopathy. Neuro: Sedated,paralyzed and mechanically ventilated - Labs CBC & Chem 7: 10/23/17 04:00 10/23/17 04:00 Labs: Abnormal Lab Results - Last 24 Hours (Table) 10/22/17 10/22/17 10/22/17 Range/Units 22:10 22:53 23:54 WBC (3.8-10.6) k/uL RBC (4.30-5.90) m/uL Hgb (13.0-17.5) gm/dL Hct (39.0-53.0) % MCHC (31.0-37.0) g/dL Plt Count (150-450) k/uL ABG pCO2 (35-45) mmHg ABG HCO3 (21-25) mmol/L ABG Total CO2 (19-24) mmol/L ABG O2 Saturation (94-97) % BUN (9-20) mg/dL Glucose (74-99) mg/dL POC Glucose (mg/dL) 135 H 146 H 140 H (75-99) mg/dL 10/23/17 10/23/17 10/23/17 Range/Units 01:29 02:58 04:00 WBC (3.8-10.6) k/uL RBC (4.30-5.90) m/uL Hgb (13.0-17.5) gm/dL Hct (39.0-53.0) % MCHC (31.0-37.0) g/dL Plt Count (150-450) k/uL ABG pCO2 (35-45) mmHg ABG HCO3 (21-25) mmol/L ABG Total CO2 (19-24) mmol/L ABG O2 Saturation (94-97) % BUN 25 H (9-20) mg/dL Glucose 152 H (74-99) mg/dL POC Glucose (mg/dL) 137 H 152 H (75-99) mg/dL 10/23/17 10/23/17 10/23/17 Range/Units 04:00 04:17 05:04 WBC 14.4 H (3.8-10.6) k/uL RBC 3.40 L (4.30-5.90) m/uL Hgb 9.4 L (13.0-17.5) gm/dL Hct 30.5 L (39.0-53.0) % MCHC 30.9 L (31.0-37.0) g/dL Plt Count 461 H (150-450) k/uL ABG pCO2 47 H (35-45) mmHg ABG HCO3 28 H (21-25) mmol/L ABG Total CO2 30 H (19-24) mmol/L ABG O2 Saturation 97.2 H (94-97) % BUN (9-20) mg/dL Glucose (74-99) mg/dL POC Glucose (mg/dL) 146 H (75-99) mg/dL 10/23/17 10/23/17 10/23/17 Range/Units 05:55 06:52 08:12 WBC (3.8-10.6) k/uL RBC (4.30-5.90) m/uL Hgb (13.0-17.5) gm/dL Hct (39.0-53.0) % MCHC (31.0-37.0) g/dL Plt Count (150-450) k/uL ABG pCO2 (35-45) mmHg ABG HCO3 (21-25) mmol/L ABG Total CO2 (19-24) mmol/L ABG O2 Saturation (94-97) % BUN (9-20) mg/dL Glucose (74-99) mg/dL POC Glucose (mg/dL) 142 H 127 H 128 H (75-99) mg/dL 10/23/17 10/23/17 10/23/17 Range/Units 09:08 10:10 11:06 WBC (3.8-10.6) k/uL RBC (4.30-5.90) m/uL Hgb (13.0-17.5) gm/dL Hct (39.0-53.0) % MCHC (31.0-37.0) g/dL Plt Count (150-450) k/uL ABG pCO2 (35-45) mmHg ABG HCO3 (21-25) mmol/L ABG Total CO2 (19-24) mmol/L ABG O2 Saturation (94-97) % BUN (9-20) mg/dL Glucose (74-99) mg/dL POC Glucose (mg/dL) 151 H 170 H 137 H (75-99) mg/dL 10/23/17 10/23/17 10/23/17 Range/Units 12:04 12:13 14:27 WBC (3.8-10.6) k/uL RBC (4.30-5.90) m/uL Hgb (13.0-17.5) gm/dL Hct (39.0-53.0) % MCHC (31.0-37.0) g/dL Plt Count (150-450) k/uL ABG pCO2 (35-45) mmHg ABG HCO3 (21-25) mmol/L ABG Total CO2 (19-24) mmol/L ABG O2 Saturation (94-97) % BUN (9-20) mg/dL Glucose (74-99) mg/dL POC Glucose (mg/dL) 173 H 151 H 158 H (75-99) mg/dL 10/23/17 10/23/17 10/23/17 Range/Units 16:28 17:45 19:10 WBC (3.8-10.6) k/uL RBC (4.30-5.90) m/uL Hgb (13.0-17.5) gm/dL Hct (39.0-53.0) % MCHC (31.0-37.0) g/dL Plt Count (150-450) k/uL ABG pCO2 (35-45) mmHg ABG HCO3 (21-25) mmol/L ABG Total CO2 (19-24) mmol/L ABG O2 Saturation (94-97) % BUN (9-20) mg/dL Glucose (74-99) mg/dL POC Glucose (mg/dL) 202 H 179 H 183 H (75-99) mg/dL 10/23/17 10/23/17 Range/Units 19:41 21:09 WBC (3.8-10.6) k/uL RBC (4.30-5.90) m/uL Hgb (13.0-17.5) gm/dL Hct (39.0-53.0) % MCHC (31.0-37.0) g/dL Plt Count (150-450) k/uL ABG pCO2 (35-45) mmHg ABG HCO3 (21-25) mmol/L ABG Total CO2 (19-24) mmol/L ABG O2 Saturation (94-97) % BUN (9-20) mg/dL Glucose (74-99) mg/dL POC Glucose (mg/dL) 178 H 180 H (75-99) mg/dL Microbiology - Last 24 Hours (Table) 10/17/17 05:50 Blood Culture - Final Blood No Growth after 144 hours 10/17/17 04:07 Blood Culture - Final Blood No Growth after 144 hours Laboratory Results WBC 14.4 k/uL (3.8-10.6) H 10/23/17 04:00 RBC 3.40 m/uL (4.30-5.90) L 10/23/17 04:00 Hgb 9.4 gm/dL (13.0-17.5) L 10/23/17 04:00 Hct 30.5 % (39.0-53.0) L 10/23/17 04:00 MCV 89.9 fL (80.0-100.0) 10/23/17 04:00 MCH 27.8 pg (25.0-35.0) 10/23/17 04:00 MCHC 30.9 g/dL (31.0-37.0) L 10/23/17 04:00 RDW 14.3 % (11.5-15.5) 10/23/17 04:00 Plt Count 461 k/uL (150-450) H 10/23/17 04:00 Neutrophils % 81 % 10/18/17 05:00 Neutrophils % (Manual) 82 % 10/21/17 06:00 Band Neutrophils % 8 % 10/20/17 05:00 Lymphocytes % 10 % 10/18/17 05:00 Lymphocytes % (Manual) 9 % 10/21/17 06:00 Monocytes % 4 % 10/18/17 05:00 Monocytes % (Manual) 5 % 10/21/17 06:00 Eosinophils % 3 % 10/18/17 05:00 Eosinophils % (Manual) 3 % 10/20/17 05:00 Basophils % 1 % 10/18/17 05:00 Basophils % (Manual) 1 % 10/20/17 05:00 Metamyelocytes % 4 % 10/20/17 05:00 Myelocytes % 4 % 10/21/17 06:00 Neutrophils # 16.1 k/uL (1.3-7.7) H 10/18/17 05:00 Neutrophils # (Manual) 13.45 k/uL (1.3-7.7) H 10/21/17 06:00 Lymphocytes # 2.0 k/uL (1.0-4.8) 10/18/17 05:00 Lymphocytes # (Manual) 1.48 k/uL (1.0-4.8) 10/21/17 06:00 Monocytes # 0.8 k/uL (0-1.0) 10/18/17 05:00 Monocytes # (Manual) 0.82 k/uL (0-1.0) 10/21/17 06:00 Eosinophils # 0.7 k/uL (0-0.7) 10/18/17 05:00 Eosinophils # (Manual) 0.53 k/uL (0-0.7) 10/20/17 05:00 Basophils # 0.1 k/uL (0-0.2) 10/18/17 05:00 Basophils # (Manual) 0.18 k/uL (0-0.2) 10/20/17 05:00 Metamyelocytes # (Man) 0.70 k/uL (0) H 10/20/17 05:00 Myelocytes # (Manual) 0.66 k/uL (0) H 10/21/17 06:00 Nucleated RBCs 0 /100 WBC (0-0) 10/21/17 06:00 Manual Slide Review Performed 10/21/17 06:00 Toxic Granulation Present 10/20/17 05:00 Large Platelets Present 10/21/17 06:00 Polychromasia Present 10/21/17 06:00 Hypochromasia Moderate 10/23/17 04:00 ESR 25 mm/hr (0-15) H 10/12/17 07:29 Sample Site [place] 10/23/17 05:04 ABG pH 7.38 (7.35-7.45) 10/23/17 05:04 ABG pCO2 47 mmHg (35-45) H 10/23/17 05:04 ABG pO2 97 mmHg (83-108) 10/23/17 05:04 ABG HCO3 28 mmol/L (21-25) H 10/23/17 05:04 ABG Total CO2 30 mmol/L (19-24) H 10/23/17 05:04 ABG O2 Saturation 97.2 % (94-97) H 10/23/17 05:04 ABG Base Excess 3.1 mmol/L 10/23/17 05:04 Cr Test Yes 10/23/17 05:04 ABG Lactic Acid 1.0 mmol/L (0.5-1.6) 10/12/17 18:06 FiO2 55 % 10/23/17 05:04 Sodium 141 mmol/L (137-145) 10/23/17 04:00 Potassium 4.0 mmol/L (3.5-5.1) 10/23/17 04:00 Chloride 105 mmol/L (98-107) 10/23/17 04:00 Carbon Dioxide 27 mmol/L (22-30) 10/23/17 04:00 Anion Gap 9 mmol/L 10/23/17 04:00 BUN 25 mg/dL (9-20) H 10/23/17 04:00 Creatinine 0.80 mg/dL (0.66-1.25) 10/23/17 04:00 Est GFR (CKD-EPI)AfAm >90 (>60 ml/min/1.73 sqM) 10/23/17 04:00 Est GFR (CKD-EPI)NonAf >90 (>60 ml/min/1.73 sqM) 10/23/17 04:00 Glucose 152 mg/dL (74-99) H 10/23/17 04:00 POC Glucose (mg/dL) 180 mg/dL (75-99) H 10/23/17 21:09 POC Glu Stage Rigger LAURIE Malika Lyon 10/23/17 21:[address] Glu mg/dL 214 10/12/17 07:29 Hemoglobin A1c 9.1 % (4.0-6.0) H 10/12/17 07:29 Plasma Lactic Acid Ron 1.5 mmol/L (0.7-2.0) 10/11/17 21:10 Uric Acid 5.6 mg/dL (3.5-8.5) 10/11/17 21:10 Calcium 9.2 mg/dL (8.4-10.2) 10/23/17 04:00 Phosphorus 5.0 mg/dL (2.5-4.5) H 10/22/17 04:00 Magnesium 1.9 mg/dL (1.6-2.3) 10/23/17 04:00 AST 96 U/L (17-59) H 10/13/17 19:55 ALT 58 U/L (21-72) 10/13/17 19:55 C-Reactive Protein 45.1 mg/L (<10.0) H 10/11/17 21:10 Urine Color Yellow 10/15/17 11:30 Urine Appearance Clear (Clear) 10/15/17 11:30 Urine pH 6.0 (5.0-8.0) 10/15/17 11:30 Ur Specific [place] 1.018 (1.001-1.035) 10/15/17 11:30 Urine Protein 1+ (Negative) H 10/15/17 11:30 Urine Glucose (UA) 3+ (Negative) H 10/15/17 11:30 Urine Ketones Negative (Negative) 10/15/17 11:30 Urine Blood Small (Negative) H 10/15/17 11:30 Urine Nitrite Negative (Negative) 10/15/17 11:30 Urine Bilirubin Negative (Negative) 10/15/17 11:30 Urine Urobilinogen <2.0 mg/dL (<2.0) 10/15/17 11:30 Ur Leukocyte Esterase Negative (Negative) 10/15/17 11:30 Urine RBC <1 /hpf (0-5) 10/15/17 11:30 Urine WBC 3 /hpf (0-5) 10/15/17 11:30 Urine Mucus Rare /hpf (None) H 10/15/17 11:30 Blood Type O Positive 10/21/17 13:30 Blood Type Recheck No 10/21/17 13:30 Antibody Screen NEGATIVE 10/21/17 13:30 Spec Expiration Date 10/24/2017232910/21/17 13:30 Microbiology 10/17/17 05:50 Blood Blood Culture - Final No Growth after 144 hours 10/17/17 04:07 Blood Blood Culture - Final No Growth after 144 hours 10/15/17 05:15 Sputum Gram Stain - Final 10/15/17 05:15 Sputum Sputum Culture - Final Jayne albicans 10/13/17 08:45 Blood Blood Culture Gram Stain - Final 10/13/17 08:45 Blood Blood Culture - Final Staphylococcus aureus 10/12/17 19:48 Ankle - Left Anaerobic Culture - Final 10/12/17 19:48 Ankle - Left Anaerobic Culture - Final 10/13/17 07:25 Blood Blood Culture Gram Stain - Final 10/13/17 07:25 Blood Blood Culture - Final Staphylococcus aureus 10/12/17 19:48 Ankle - Left Gram Stain - Final 10/12/17 19:48 Ankle - Left Wound Culture - Final Staph aureus 10/12/17 19:48 Ankle - Left Gram Stain - Final 10/12/17 19:48 Ankle - Left Wound Culture - Final Staphylococcus aureus 10/12/17 09:27 Synovial Fluid Gram Stain - Final 10/12/17 09:27 Synovial Fluid Body Fluid Culture - Final Staphylococcus aureus 10/13/17 07:25 Blood Blood Culture - Final 10/13/17 08:45 Blood Blood Culture - Final 10/11/17 21:15 Blood Blood Culture Gram Stain - Final 10/11/17 21:15 Blood Blood Culture - Final Staphylococcus aureus 10/11/17 21:15 Blood Blood Culture - Final Assessment and Plan (1) Septic arthritis of left ankle Narrative/Plan: 52-year-old male presents the emergency center with inability to bear weight to his left ankle. The patient has had some new orthotic boot manufactured in a developed a small ulcer on the dorsum of the left foot. This apparently was from a grommet from an orthotic. This was completely healed and was evaluated but was still having ongoing difficulties with ankle area. Is actively following up with orthopedic foot and ankle. The patient does have a boot that was designed that he was not wearing when he came to the office and understands it is important that he wears this when he is at work to protect his ankle from the [place] changes. Patient however now has high-grade fever chills leukocytosis and laboratories: Positive blood culture with gram-positive cocci. The patient did have aspiration per orthopedic ankle grossly purulent material was found. Originally the plan was to go to the operating him in the morning but as the patient felt worsening sepsis he is no scheduled operating room this afternoon for the incision and drainage of this abscess. Deep cultures and pathology will also be sent. Antibiotic therapy is altered from vancomycin to daptomycin. In hopes to have a more rapid bacteriocidal activity given his rapidly declining status. Enhance glucose control be important part of his healing. Leukocytosis record related to his current sepsis. There is evidence of possible culture and he will require follow blood cultures in the morning. He was monitored for any persistence of his bacteremia. There will be a coordinated effort between orthopedic ankle and infectious disease as to the care at discharge. 10/13/2017 reveals the patient still needs intensive care unit after surgery with ongoing sepsis. Continues to have fever and leukocytosis and difficulties with acute lung injury and now elevated creatinine to 2.0. Patient continues to be resuscitated and has had some improvement but minimal at this point in time. He will continue with maneuvers to improve his fever maintain his hydration and antibiotic therapy continues with daptomycin for both staph aureus and MRSA, blood culture and aspirate from the ankle are still showing staph aureus final susceptibility is pending. Patient aware that if he improves he will be receiving a jg completed a long course of IV antibiotic therapy for this extensive infection. Leukocytosis directly related to the sepsis 10/14/2017 the patient remains in intensive care unit, high flow oxygen is being utilized for his acute lung injury. His creatinine has increased further is now 2.0. Urine output is adequate. He is symptomatically stable is having difficulties with shortness of breath. Pain at the foot and ankle is predictable but the significant swelling history improving after surgical incision and drainage. Ulceration is treated with a medical history dressing. If there is no further marked improvement by tomorrow the patient will likely go back to the operating him for further incision and drainage to the site. The case is discussed with the orthopedic surgeon. 10/15/2017 the patient is noted had a decline of his status and his required intubation with sedation mechanical ventilation and is now much more comfortable. His pulmonary status is improved with the intervention. He has not requiring vasopressor therapy. We'll do blood cultures verified MSSA and antibiotic therapy was transitioned to high dose cefazolin. The patient is evaluated in conjunction with the orthopedic surgeon and the plan is for the patient to have further debridement of the ankle tomorrow to ensure there is complete drainage of any abscess at that joint site given the progression of his underlying illness. Fortunately he has not hemodynamic stable and is having improvement of his leukocytosis. We'll expect as a sepsis improves his pulmonary injury will improve also. His creatinine peaked at 2.10 now down to 2.0 and nephrology has evaluated. Follow blood cultures to ensure clearance of his bacteremia. Echocardiogram without evidence of vegetations. Is not the case is discussed with the orthopedic surgeon as well as the patient' s . 10/16/2017 the patient's been taking to the operating room today for further debridement of the left ankle. Some necrotic bone was debrided but no further large pockets of abscess were seen. Wound vacs are applied. We'll continue his high-dose antibiotic therapy for his MSSA infection from the septic arthritis left ankle. There are several evidences of improvement today, still requires no vasopressor therapy. We'll expect as he starting to improve we need to start in the next day or so. Once he is evidence of clearance of his bacteremia will need IV access placed for his long-term IV antibiotic therapy. 10/17/2017 patient is hemodynamically stable without acute no difficulties today. He over did not do well with a weaning trial. Will be tried on a daily basis as per the orthodontist. He is hemodynamic stable and his adequate urinary output. We'll continue high-dose cefazolin and supportive care. It is likely that the wound vacs removed tomorrow with further evaluation of the ankle wounds at that time. Supportive care continues he's had a slight improvement of his creatinine and his sodium is improving. 10/18/2017 the patient remains medically stable and that her vasopressor therapy. Insulin drip is reduced. He did not do well with weaning trial today with significant hypertensive response. With the medications is better at this time. Acute renal failure has resolved leukocytosis is trending to improvement. And there is no negative blood culture from October 17. If the patient improves we'll transition to alternative IV access was for a dual lumen PICC line to be placed this will help us transition to his outpatient intravenous antibiotic therapy when he is improved. The wound VAC is removed at this point in time. Saline moistened opticell silver is applied without difficulty. This will be changed every other day. Pulmonary critical care will continue to move toward extubation. 10/21/2017 patient continues to have respiratory failure 10/21/2017 patient continues to have respiratory failure with ongoing intubation sedation and mechanical ventilation he is hemodynamically stable. Remains on insulin drip. Vital respiratory failure the patient will undergo tracheostomy and PEG tube placement later this week. 10/22/2017 patient remains intubated sedated paralyzed and mechanically ventilated. Tracheostomy is to happen soon. His MSSA sepsis is under control this point in time is developed ARDS and will require long-term weaning. Fever and leukocytosis have improved no other infections are noted local wound care to the ankle reveals evidence of the improving surgical wounds. 10/23/2017 the patient is now status Constantly ongoing plans for long-term weaning. Local wound care is with silver dressing.as infection is improving there will Be a possibility for negative pressure therapy system. Currently plan 6 weeks of intravenous antibiotic therapy for his MSSA sepsis. Pulmonary is following regarding his ARDS. Current Visit: Yes Status: Acute Code(s): M00.9 - PYOGENIC ARTHRITIS, UNSPECIFIED SNOMED Code(s): 40382937 (2) Sepsis Current Visit: Yes Status: Acute Priority: Medium Code(s): A41.9 - SEPSIS , UNSPECIFIED ORGANISM SNOMED Code(s): 07137976 (3) Poorly controlled type 2 diabetes mellitus with complication Current Visit: Yes Status: Chronic Code(s): E11.8 - TYPE 2 DIABETES MELLITUS WITH UNSPECIFIED COMPLICATIONS; E11.65 - TYPE 2 DIABETES MELLITUS WITH HYPERGLYCEMIA SNOMED Code(s): 89666810
[2017-10-23 21:49] LABS: Glucose,Whole Blood 154 mg/dL (75-99)
[2017-10-23] MEDS: ACETAMINOPHEN TAB 325 MG TAB PO PRN (22:04)
[2017-10-23 23:15] LABS: Glucose,Whole Blood 148 mg/dL (75-99)
[2017-10-24 00:01] LABS: Glucose,Whole Blood 155 mg/dL (75-99)
[2017-10-24] MEDS: PROPOFOL 1,000 MG in EMPTY BAG 1 BAG IV SCH ×10 (00:23→20:16)
[2017-10-24 01:10] LABS: Glucose,Whole Blood 145 mg/dL (75-99)
[2017-10-24 01:59] LABS: Glucose,Whole Blood 148 mg/dL (75-99)
[2017-10-24] MEDS: LABETALOL 5 MG/ML VIAL MDV IVP PRN ×5 (02:20→20:17)
[2017-10-24 03:06] LABS: Glucose,Whole Blood 142 mg/dL (75-99)
[2017-10-24] MEDS: IPRATROPIUM-ALBUTEROL 3 ML NEB INHALATION SCH ×6 (03:07→23:01)
[2017-10-24 04:15] LABS: Glucose,Whole Blood 134 mg/dL (75-99)
[2017-10-24 04:55] LABS: Glucose,Whole Blood 133 mg/dL (75-99)
[2017-10-24 05:43] LABS: Anion Gap 10 mmol/L; Calcium 9.3 mg/dL (8.4-10.2); Carbon Dioxide 27 mmol/L (22-30); Chloride 105 mmol/L (98-107); Glucose 134 mg/dL (74-99); Sodium 142 mmol/L (137-145)
[2017-10-24] MEDS: METOCLOPRAMIDE 5 MG/ML 2 ML VIAL IVP SCH ×3 (05:59→17:05)
[2017-10-24] MEDS: LEVOTHYROXINE IVP 100 MCG/5 ML VIAL IV SCH (05:59)
[2017-10-24 06:08] LABS: Glucose,Whole Blood 154 mg/dL (75-99)
[2017-10-24 06:11] LABS: Blood Urea Nitrogen 25 mg/dL (9-20); Magnesium 1.9 mg/dL (1.6-2.3); Phosphorus 4.9 mg/dL (2.5-4.5); Potassium 4.2 mmol/L (3.5-5.1)
[2017-10-24] MEDS: MAGNESIUM SULFATE-D5W PMX 1 GM in DEXTROSE/WATER 1 100ML.BAG IVPB SCH ×2 (06:57→07:48)
[2017-10-24 07:01] LABS: Glucose,Whole Blood 155 mg/dL (75-99)
--- NOTE | 2017-10-24 07:20 | XR ---
EXAMINATION TYPE: XR chest 1V portable DATE OF EXAM: 10/24/2017 COMPARISON: 10/23/2017 HISTORY: Respiratory failure TECHNIQUE: Single frontal view of the chest is obtained. FINDINGS: Midline tracheostomy has been placed in the interim with removal of the enteric and endotr acheal tubes. Right-sided PICC remains unchanged. There is improved aeration of the right lung base w ith a stable trace left pleural effusion and mild pulmonary vascular congestion. Near-complete resolu tion of the previously seen right pleural effusion. Cardiomegaly remains. Osseous structures are inta ct. IMPRESSION: 1. New midline tracheostomy appearing appropriately placed with removal of the endotracheal and enter ic tubes. 2. Improved aeration of the right lung base with now trace right pleural effusion and small layering left pleural effusion. Stable mild pulmonary vascular congestion.
[2017-10-24] MEDS: FUROSEMIDE 10 MG/ML 2 ML VIAL IV SCH (07:48)
[2017-10-24] MEDS: PANTOPRAZOLE 40 MG/10 ML VIAL IV SCH (07:48)
[2017-10-24] MEDS: CHLORHEXIDINE GLUCONATE 15 ML CUP MUCOUS MEM SCH ×2 (07:49→20:18)
[2017-10-24] MEDS: HEPARIN SODIUM,PORCINE 5,000 UNIT/ML 1 ML VIAL SQ SCH ×2 (07:49→15:24)
[2017-10-24] MEDS: ceFAZolin IN SWFI 2 GM/20 ML SYRINGE IVP SCH ×2 (07:55→15:24)
[2017-10-24] MEDS: MORPHINE SULFATE 4 MG/ML SYRINGE IVP PRN ×4 (07:55→22:11)
[2017-10-24 08:14] LABS: Glucose,Whole Blood 166 mg/dL (75-99)
[2017-10-24 08:36] LABS: HCT 29.4 % (39.0-53.0); HGB 9.5 gm/dL (13.0-17.5); Hypochromasia Slight; MCH 28.7 pg (25.0-35.0); MCHC 32.4 g/dL (31.0-37.0); MCV 88.5 fL (80.0-100.0); Mean Platelet Volume 9.3; Platelet Count 495 k/uL (150-450); RBC 3.32 m/uL (4.30-5.90); RDW 13.9 % (11.5-15.5); WBC 13.8 k/uL (3.8-10.6)
--- NOTE | 2017-10-24 08:55 | P.PN ---
Subjective Progress Note Date: 10/24/17 Principal diagnosis: Sepsis and left foot infection with mental status changes Progress note dated 10/19/2017 This is a 52-year-old male with acute hypoxemic respiratory failure secondary to sepsis. He was admitted with a diagnosis of Septic Arthritis Involving the Left Ankle and He Status Post Left Ankle Irrigation and Debridement. He's Postop Day #7. He Wanted Month for Another Irrigation and Debridement, on 10/16 and Is Postop Day #3. Today We Did a Daily Eruption of Sedation. Unfortunately He Did Very Poorly. He Was Not Ready for a Spontaneous Breathing Trial. The patient has a history of acute severe sepsis with positive blood cultures for methicillin sensitive staph aureus, altered mental status acute hypoxemic and hypercapnic respiratory failure with mild ARDS, diabetes mellitus peripheral neuropathy chronic wounds and ulcerations of lower extremities Charcot joints of morbid obesity hypertension hyperlipidemia hypothyroidism acute kidney injury and hypernatremia. I had a long talk with the family today. The understand that by mid next week if the patient does not show improvement, would likely send patient for a tracheostomy and PEG tube. Progress note dated 10/20/2017 A 52-year-old male with a history of acute hypoxemic respiratory failure secondary to sepsis. The patient was admitted with a diagnosis of septic arthritis involving the left ankle and he is status post left ankle irrigation and debridement, postop day #8. He also had an irrigation and debridement a second time and for that when he is postop day #4. The patient had a daily eruption of sedation yesterday and unfortunately did very poorly and again today he had daily eruption of sedation and again did very poorly. His respiratory rate was quite high. Heart rate was very high. The patient went very high. He was not responsive. The patient does not follow simple commands. He may eventually need a tracheostomy and PEG tube placement. I did have a long discussion with his yesterday. In addition, the patient is positive blood culture for methicillin sensitive staph aureus mental status changes acute hypoxemic and hypercapnic respiratory failure mild ARDS based on a PaO2/FiO2 ratio, diabetes peripheral neuropathy chronic wounds and ulcerations of lower extremities Charcot joints morbid obesity hypertension hyperlipidemia hypothyroidism acute kidney injury and hypernatremia. I did mention tracheostomy and PEG tube yesterday with the . Again, the patient has shown no significant improvement over the last 48 hours. Chest x-ray is unchanged. Microbiology is reviewed. White count 17.5, hemoglobin 10.4 platelet count normal. Arterial blood gases show a PaO2 of 74 a PaCO2 of 38 and pH is 7.44. Sodium is 139 potassium 3.8 chloride is 105 CO2 23 BUN and creatinine 24 and 0.78 respectively. The patient's vent settings are the volume assist control mode, rate of 26, tidal volume 500, FiO2 50% and PEEP of 8. The patient's currently on propofol at 50 mics per kilogram per minute, Cleviprex at 21 mg per hour and a D5W IV at KVO. The patient is receiving vital high protein at 20 with a goal of 20. Progress note dated 10/21/2017 52-year-old male with a history of acute hypoxemic respiratory failure secondary to sepsis. The patient was admitted with a diagnosis of septic arthritis involving the left ankle many status post left ankle irrigation and debridement, postop day #9. He also had a second irrigation and he is postop day #5 on that one. Unfortunately, over the weekend, the patient has made no progress in yesterday because of worsening respiratory status, the patient had to be paralyzed. He was given Nimbex 10 mg IV and started on a Nimbex drip. We 'll do [id number] monitoring. Also, yesterday we had issues with his heart rate and blood pressure. We had added some labetalol to his Cleviprex. Finally , the patient's oxygenation worsened suggesting is acute respiratory distress syndrome has worsened. Currently on 70% FiO2 and 12 of PEEP. I did have a long discussion with the on Saturday. I explained that he probably end up with a tracheostomy and PEG tube placed. I will ask the thoracic surgeon about that today. Blood cultures are positive multiple times for methicillin sensitive staph aureus. The patient does have a history of Charcot joints morbid obesity hypertension hyperlipidemia hypothyroidism acute kidney injury and hypernatremia. Currently, the patient's vent settings are the assist control mode rate of 26 tidal volume 500 FiO2 70% PEEP of 12 blood gases show a PaO2 of 69 and a PaCO2 of 53 and a pH 7.32. The patient is on Nimbex at 3 mics per kilogram per minute, propofol 60 mikes per kilogram per minute, Cleviprex at 14 mg an hour, insulin 16 units an hour saline IV at 20 mL an hour and vital high protein and rate of 20 with a goal of 20 mL per hour. Needless to say, the patient's very critically ill. Progress note dated 10/22/2017 52-year-old male with a history of acute hypoxemic respiratory failure secondary to sepsis. The patient was admitted initially admitted with a diagnosis of septic arthritis involving the left ankle and he status post left ankle irrigation and debridement, postop day #10 he had a second procedure done and on that procedure he is postop day #6. The patient has made no progress on the ventilator. I did ask the thoracic surgeon to see him for a tracheostomy and PEG tube placement. She oxygenation and dyssynchronous with the ventilator , the patient was paralyzed. We've also some additional blood pressure control. His blood pressure has been high despite maximal doses of Cleviprex and labetalol IV. Anyway, the patient is scheduled for a tracheostomy and PEG tube on Saturday. This been no changes in his status since that time. The patient has a history of multiple positive blood cultures for methicillin sensitive staph aureus. He does have a history of Charcot joints, morbid obesity, hypertension, hyperlipidemia, hypothyroidism, acute kidney injury, and hypernatremia. Currently, the patient's on the volume assist control modality, rate is 26 tidal volume is 500 FiO2 70% PEEP of 12. Arterial blood gases show a PaO2 of 139 a PaCO2 40 and a pH of 7.36. If the FiO2 we dropped down to 55%. The patient receiving a saline IV at 20 mL an hour propofol 60 mikes per kilogram per minute insulin drip at 13 units per hour Nimbex at 4 mics per kilogram per minute vital high protein at 20 with a goal of 20 mL an hour and the Cleviprex is off. Sodium is 141 potassium 4.4 chloride 105 CO2 27 and BUN and creatinine is 27 0.79. CBC is pending Chest x-ray shows diffuse infiltrates with possible small effusions. Endotracheal tube in good position. Progress note dated 10/23/2017 52-year-old male with a history of acute hypoxemic respiratory failure sepsis and acute respiratory distress syndrome. The patient was initially admitted with a diagnosis of septic arthritis involving the left ankle and he status post left ankle irrigation and debridement, postop day #11. In addition, he had a second irrigation/debridement and he is postop day #7 on that procedure. The patient has made no progress in regards to weaning and extubation. The patient has been dyssynchronous on the ventilator and required heavy sedation and paralysis. He is going to have a tracheostomy and PEG tube placement today. I've had ongoing discussions with his . Also, we had issues with blood pressure control is required both Cleviprex and IV labetalol for that. He does have positive blood cultures for methicillin sensitive staph aureus. Being treated for that. He has a history of Charcot joints morbid obesity hypertension hyperlipidemia hypothyroidism acute kidney injury and hypernatremia. The patient's currently on the ventilator with the same settings. He is receiving a saline IV at 20 mL an hour propofol 70 mics per kilogram per minute and Nimbex at 4 mics per kilogram per minute. His arterial blood gases show a PaO2 of 97 a PaO2 of 47 and a pH of 7.38. The patient's chest x-ray shows worsening bilateral infiltrates. Labs x-rays a medications are all reviewed. Progress note dated 10/24/2017 52-year-old male with a history of acute hypoxemic respiratory failure sepsis and acute respiratory distress syndrome. By PF ratio, the patient has moderate ARDS. The patient was initially admitted with a diagnosis of septic arthritis involving the left ankle and he status post left ankle irrigation and debridement postop day #12 and a second procedure done similarly, postop day # 8. The patient is postop day #1 status post tracheostomy and PEG tube placement. He is currently off paralysis. Tube feeds can resume at 3:00 today. The patient has a history of methicillin sensitive staph aureus sepsis. In addition, the patient has Charcot joints morbid obesity hypertension hyperlipidemia hypothyroidism acute kidney injury and hypernatremia. Currently , he's on the volume assist control mode rate of 26, tidal volume 500, FiO2 55% to be dropped to 40% and PEEP of 12. Blood gases show a PaO2 of 1:30 a PaCO2 of 48 and a pH of 7.4. The patient is on saline IV at KVO, propofol 70 mics per kilogram per minute insulin drip at 6 units an hour and tube feeds are on hold but will resume at 3:00 today. Again tracheostomy and PEG tube placement on October 23. The plan today will be to slowly wean the propofol. We'll see for can start moving the patient reports liberation from mechanical ventilation. We will drop the FiO2 down to 40%. If his oxygen remained stable, start making drops in PEEP. Objective - Vital Signs Vital signs: Vital Signs Temp 98.9 F 10/24/17 06:00 Pulse 88 10/24/17 07:37 Resp 24 10/24/17 07:00 BP 130/60 10/23/17 07:11 Pulse Ox 100 10/24/17 07:00 Intake & Output 10/23/17 10/24/17 10/24/17 18:59 06:59 18:59 Intake Total 870.127 960.193 111.655 Output Total 3030 1420 Balance -2159.873 -459.807 111.655 Weight 158.1 kg Intake: IV 240 260 0.9 NS 240 260 Intake, IV Titration 630.127 700.193 111.655 Amount Insulin Regular 100 unit 48.127 76.192 11.655 In Sodium Chloride 0.9% 100 ml @ Per Protocol IV .Q0M [facility] Rx#:[id number] Propofol 1,000 mg In 582.000 624.001 100 Empty Bag 1 bag @ Per Protocol IV .Q0M [facility] Rx#: [id number] Tube Feeding 0 Output: Urine 3025 1420 Estimated Blood Loss 5 Other: Voiding Method Indwelling Catheter Indwelling Catheter ABP, PAP, CO, CI - Last Documented Arterial Blood Pressure 126/64 - Exam No acute distress, sedated , with a endotracheal tube and NG tube noted HEENT examination is grossly unremarkable. Mucous membranes are moist. Neck supple. Full range of motion. No adenopathy thyromegaly or neck vein distention. Cardiovascular examination reveals regular rhythm rate. S1-S2 normal. No S3 or S4. No discernible murmur noted. Lungs reveal diminished breath sounds. Coarse bilateral rhonchi are noted. Breath sounds are equal bilaterally. No crackles. Abdomen soft bowel sounds are heard. No masses or tenderness. Extremities are intact. Both lower extremities are wrapped in Geoffrey wraps. Also examination cannot be done. Edema is clearly present though.. Skin is without rash or lesion. Neurologic examination could not be performed - Labs CBC & Chem 7: 10/24/17 05:01 10/24/17 05:01 Labs: Abnormal Lab Results - Last 24 Hours (Table) 10/23/17 10/23/17 10/23/17 Range/Units 09:08 10:10 11:06 WBC (3.8-10.6) k/uL RBC (4.30-5.90) m/uL Hgb (13.0-17.5) gm/dL Hct (39.0-53.0) % Plt Count (150-450) k/uL BUN (9-20) mg/dL Glucose (74-99) mg/dL POC Glucose (mg/dL) 151 H 170 H 137 H (75-99) mg/dL Phosphorus (2.5-4.5) mg/dL 10/23/17 10/23/17 10/23/17 Range/Units 12:04 12:13 14:27 WBC (3.8-10.6) k/uL RBC (4.30-5.90) m/uL Hgb (13.0-17.5) gm/dL Hct (39.0-53.0) % Plt Count (150-450) k/uL BUN (9-20) mg/dL Glucose (74-99) mg/dL POC Glucose (mg/dL) 173 H 151 H 158 H (75-99) mg/dL Phosphorus (2.5-4.5) mg/dL 10/23/17 10/23/17 10/23/17 Range/Units 16:28 17:45 19:10 WBC (3.8-10.6) k/uL RBC (4.30-5.90) m/uL Hgb (13.0-17.5) gm/dL Hct (39.0-53.0) % Plt Count (150-450) k/uL BUN (9-20) mg/dL Glucose (74-99) mg/dL POC Glucose (mg/dL) 202 H 179 H 183 H (75-99) mg/dL Phosphorus (2.5-4.5) mg/dL 10/23/17 10/23/17 10/23/17 Range/Units 19:41 21:09 21:47 WBC (3.8-10.6) k/uL RBC (4.30-5.90) m/uL Hgb (13.0-17.5) gm/dL Hct (39.0-53.0) % Plt Count (150-450) k/uL BUN (9-20) mg/dL Glucose (74-99) mg/dL POC Glucose (mg/dL) 178 H 180 H 154 H (75-99) mg/dL Phosphorus (2.5-4.5) mg/dL 10/23/17 10/24/17 10/24/17 Range/Units 23:12 00:00 01:08 WBC (3.8-10.6) k/uL RBC (4.30-5.90) m/uL Hgb (13.0-17.5) gm/dL Hct (39.0-53.0) % Plt Count (150-450) k/uL BUN (9-20) mg/dL Glucose (74-99) mg/dL POC Glucose (mg/dL) 148 H 155 H 145 H (75-99) mg/dL Phosphorus (2.5-4.5) mg/dL 10/24/17 10/24/17 10/24/17 Range/Units 01:56 03:05 04:13 WBC (3.8-10.6) k/uL RBC (4.30-5.90) m/uL Hgb (13.0-17.5) gm/dL Hct (39.0-53.0) % Plt Count (150-450) k/uL BUN (9-20) mg/dL Glucose (74-99) mg/dL POC Glucose (mg/dL) 148 H 142 H 134 H (75-99) mg/dL Phosphorus (2.5-4.5) mg/dL 10/24/17 10/24/17 10/24/17 Range/Units 04:53 05:01 05:01 WBC 13.8 H (3.8-10.6) k/uL RBC 3.32 L (4.30-5.90) m/uL Hgb 9.5 L (13.0-17.5) gm/dL Hct 29.4 L (39.0-53.0) % Plt Count 495 H (150-450) k/uL BUN 25 H (9-20) mg/dL Glucose 134 H (74-99) mg/dL POC Glucose (mg/dL) 133 H (75-99) mg/dL Phosphorus 4.9 H (2.5-4.5) mg/dL 10/24/17 10/24/1718 Range/Units 06:06 06:59 08:12 WBC (3.8-10.6) k/uL RBC (4.30-5.90) m/uL Hgb (13.0-17.5) gm/dL Hct (39.0-53.0) % Plt Count (150-450) k/uL BUN (9-20) mg/dL Glucose (74-99) mg/dL POC Glucose (mg/dL) 154 H 155 H 166 H (75-99) mg/dL Phosphorus (2.5-4.5) mg/dL Microbiology - Last 24 Hours (Table) 10/17/17 05:50 Blood Culture - Final Blood No Growth after 144 hours 10/17/17 04:07 Blood Culture - Final Blood No Growth after 144 hours Assessment and Plan Assessment: Assessment Acute septic arthritis of the left ankle, status post left ankle irrigation with debridement, postoperative day #12 and subsequent irrigation did the debridement, postop day #8 Postop day #1, status post tracheostomy and PEG tube placement. Acute hypoxemic respiratory failure requiring intubation and mechanical ventilation with failure to wean from mechanical ventilation despite daily interruption of sedation and spontaneous breathing trial Failure to wean from mechanical ventilation, with anticipated tracheostomy tomorrow Acute severe sepsis with positive blood cultures for methicillin sensitive Staphylococcus Mental status changes, set secondary to sepsis encephalopathy Moderate ARDS with a PF ratio of 176 Diabetes mellitus with poor sugar control Severe peripheral neuropathy History of chronic wounds and ulcerations of the lower extremities with cellulitis Charcot joints Morbid obesity Hypertension Hyperlipidemia Hypothyroidism Acute kidney injury Hypernatremia Plan: Plan dated 10/19/2017 The patient did have a daily eruption of sedation and a spontaneous breathing trial. His mental status was poor. His heart rate went up quite high with increased respiratory rate and blood pressure. The patient's mental status was poor as I mention that he was not ready for extubation. I did have a long talk with the family. They do understand that the patient may end up requiring a tracheostomy and PEG tube. He'll continue on antibiotics. No additional recommendations are made. Prognosis is poor. We will use Cleviprex for blood pressure control. We will discontinue all the other medications that were being used for blood pressure. She can titrate off of Plavix better. We sedate the patient. We will use a small amount of narcotic. Additional sedation. We'll place the patient back on the mechanical ventilator. We'll resume nutrition. Additional recommendations and suggestions are forthcoming. Plan dated 10/20/2017 Again the patient had a daily eruption of sedation and did very poorly. He was not a candidate for spontaneous breathing trial. He remains on Cleviprex at a relatively higher dose for blood pressure control and propofol. The patient is getting nutrition. I did talk to the yesterday. I let her know that the patient was not doing well and may be headed towards tracheostomy and PEG tube placement. He remains on updrafts every 4 [id number]. Not able to be weaned today. The patient blood pressure 1 of over 200 and his respiratory rate went up over 40 on holding of sedation. Chest x-ray stable. No additional recommendations are made. Prognosis is guarded. And he may end up with a trach and PEG. Critical care time 33 minutes Plan dated 10/21/2017 The patient did miserably over the weekend. Showed no progress with his daily interruption of sedation. The patient had to be paralyzed her. In addition, the patient needed additional blood pressure medication for blood pressure control. We will consult the thoracic surgeon for PEG and tracheostomy tube. Overall prognosis is poor he continues on all appropriate medications. Superflous and unnecessary medications are discontinued. The patient will continue on Nimbex propofol Cleviprex insulin and nutrition Critical care time 37 minutes Plan dated 10/22/2017 The patient continues to do poorly. By P/F criteria, he does have ARDS. The patient's FiO2 though, could be dropped to 55% today. He remains on PEEP of 12. The patient will likely have a tracheostomy and PEG tube done tomorrow. I did speak to the yesterday. She understands prognosis. The patient remained on number different medications including propofol insulin Nimbex. Cleviprex his been weaned off. He's continuing to receive nutrition. Labs and x-rays are reviewed. Again prognosis is very poor. Critical care time 38 minutes Plan dated 10/23/2017 The patient continues to do poorly. The patient will have a tracheostomy PEG tube placed today. We'll keep on the same that settings for now. We will make any FiO2 of PEEP changes at this time. The patient is getting a result of 2 feeds are on hold for the procedure. The patient is receiving saline at 20 mL an hour. The patient's on propofol 70 mics per kilogram per minute and Nimbex at 4 mics per kilogram per minute with [id number] monitoring. His overall prognosis remains poor. The patient has not made any substantial improvement. Chest x-ray today is a bit worse. Additional recommendations and suggestions are forthcoming. Critical care time is 35 minutes Plan dated 10/24/2017 The patient is postop day #1 status post tracheostomy and PEG tube placement. The FiO2 was dropped from 55-40%. We'll start weaning the PEEP. The patient is currently off paralysis. We'll start weaning the propofol down. Additional recommendations and suggestions are forthcoming. Chest x-ray is stable. In fact, patient was somewhat improved aeration. We'll continue to monitor closely. Prognosis is guarded. I have been honest with the patient's family all along. After discussions with the and brother. Critical care time 38 minutes. Time with Patient: Greater than 30
[2017-10-24 09:18] LABS: Glucose,Whole Blood 171 mg/dL (75-99)
--- NOTE | 2017-10-24 09:53 | P.PN ---
Subjective Patient is seen in follow-up for acute kidney injury, which has resolved. Sodium level is stable at 142. He remains intubated and sedated. He is currently being treated for septic arthritis and has undergone debridement of the left ankle as well as wound VAC placement. Cultures are positive for staph species. He is nonoliguric. Patient has been quite hypertensive and is requiring Cleviprex drip at this time. He underwent tracheostomy and PEG tube placement on October 23. Vital signs are stable. General: The patient appeared well nourished and normally developed. Trach noted. HEENT: Head exam is unremarkable. Neck is without jugular venous distension. LUNGS: Lungs are clear to auscultation and percussion. Breath sounds decreased. HEART: Rate and Rhythm are regular. First and second heart sounds normal. No murmurs, rubs or gallops. ABDOMEN: Abdominal exam reveals normal bowel sounds. Non-tender and non- distended. No evidence of peritonitis. EXTREMITITES: 1+ edema. Left foot wrapped. Objective - Vital Signs Vital signs: Vital Signs Temp 98.9 F 10/24/17 06:00 Pulse 81 10/24/17 09:00 Resp 29 H 10/24/17 09:00 BP 130/60 10/23/17 07:11 Pulse Ox 100 10/24/17 09:00 Intake & Output 10/23/17 10/24/17 10/24/17 18:59 06:59 18:59 Intake Total 870.127 960.193 131.655 Output Total 3030 1420 350 Balance -2159.873 -459.807 -218.345 Weight 158.1 kg 158.1 kg Intake: IV 240 260 20 0.9 NS 240 260 20 Intake, IV Titration 630.127 700.193 111.655 Amount Insulin Regular 100 unit 48.127 76.192 11.655 In Sodium Chloride 0.9% 100 ml @ Per Protocol IV .Q0M [facility] Rx#:[id number] Propofol 1,000 mg In 582.000 624.001 100 Empty Bag 1 bag @ Per Protocol IV .Q0M KAI Rx#: [id number] Tube Feeding 0 Output: Urine 3025 1420 350 Estimated Blood Loss 5 Other: Voiding Method Indwelling Catheter Indwelling Catheter Indwelling Catheter # Bowel Movements 0 ABP, PAP, CO, CI - Last Documented Arterial Blood Pressure 149/63 - Labs CBC & Chem 7: 10/24/17 05:01 10/24/17 05:01 Labs: Abnormal Lab Results - Last 24 Hours (Table) 10/23/17 10/23/17 10/23/17 Range/Units 10:10 11:06 12:04 WBC (3.8-10.6) k/uL RBC (4.30-5.90) m/uL Hgb (13.0-17.5) gm/dL Hct (39.0-53.0) % Plt Count (150-450) k/uL BUN (9-20) mg/dL Glucose (74-99) mg/dL POC Glucose (mg/dL) 170 H 137 H 173 H (75-99) mg/dL Phosphorus (2.5-4.5) mg/dL 10/23/17 10/23/17 10/23/17 Range/Units 12:13 14:27 16:28 WBC (3.8-10.6) k/uL RBC (4.30-5.90) m/uL Hgb (13.0-17.5) gm/dL Hct (39.0-53.0) % Plt Count (150-450) k/uL BUN (9-20) mg/dL Glucose (74-99) mg/dL POC Glucose (mg/dL) 151 H 158 H 202 H (75-99) mg/dL Phosphorus (2.5-4.5) mg/dL 10/23/17 10/23/17 10/23/17 Range/Units 17:45 19:10 19:41 WBC (3.8-10.6) k/uL RBC (4.30-5.90) m/uL Hgb (13.0-17.5) gm/dL Hct (39.0-53.0) % Plt Count (150-450) k/uL BUN (9-20) mg/dL Glucose (74-99) mg/dL POC Glucose (mg/dL) 179 H 183 H 178 H (75-99) mg/dL Phosphorus (2.5-4.5) mg/dL 10/23/17 10/23/17 10/23/17 Range/Units 21:09 21:47 23:12 WBC (3.8-10.6) k/uL RBC (4.30-5.90) m/uL Hgb (13.0-17.5) gm/dL Hct (39.0-53.0) % Plt Count (150-450) k/uL BUN (9-20) mg/dL Glucose (74-99) mg/dL POC Glucose (mg/dL) 180 H 154 H 148 H (75-99) mg/dL Phosphorus (2.5-4.5) mg/dL 10/24/17 10/24/17 10/24/17 Range/Units 00:00 01:08 01:56 WBC (3.8-10.6) k/uL RBC (4.30-5.90) m/uL Hgb (13.0-17.5) gm/dL Hct (39.0-53.0) % Plt Count (150-450) k/uL BUN (9-20) mg/dL Glucose (74-99) mg/dL POC Glucose (mg/dL) 155 H 145 H 148 H (75-99) mg/dL Phosphorus (2.5-4.5) mg/dL 10/24/17 10/24/17 10/24/17 Range/Units 03:05 04:13 04:53 WBC (3.8-10.6) k/uL RBC (4.30-5.90) m/uL Hgb (13.0-17.5) gm/dL Hct (39.0-53.0) % Plt Count (150-450) k/uL BUN (9-20) mg/dL Glucose (74-99) mg/dL POC Glucose (mg/dL) 142 H 134 H 133 H (75-99) mg/dL Phosphorus (2.5-4.5) mg/dL 10/24/17 10/24/17 10/24/17 Range/Units 05:01 05:01 06:06 WBC 13.8 H (3.8-10.6) k/uL RBC 3.32 L (4.30-5.90) m/uL Hgb 9.5 L (13.0-17.5) gm/dL Hct 29.4 L (39.0-53.0) % Plt Count 495 H (150-450) k/uL BUN 25 H (9-20) mg/dL Glucose 134 H (74-99) mg/dL POC Glucose (mg/dL) 154 H (75-99) mg/dL Phosphorus 4.9 H (2.5-4.5) mg/dL 10/24/17 10/24/17 10/24/17 Range/Units 06:59 08:12 09:15 WBC (3.8-10.6) k/uL RBC (4.30-5.90) m/uL Hgb (13.0-17.5) gm/dL Hct (39.0-53.0) % Plt Count (150-450) k/uL BUN (9-20) mg/dL Glucose (74-99) mg/dL POC Glucose (mg/dL) 155 H 166 H 171 H (75-99) mg/dL Phosphorus (2.5-4.5) mg/dL Microbiology - Last 24 Hours (Table) 10/17/17 05:50 Blood Culture - Final Blood No Growth after 144 hours 10/17/17 04:07 Blood Culture - Final Blood No Growth after 144 hours Assessment and Plan Plan: Assessment: #1. Nonoliguric acute kidney injury secondary to ATN secondary to severe sepsis and hemodynamic instability. Resolved. #2. Severe sepsis secondary to septic arthritis status post debridement and wound VAC placement. Fluid culture as well as blood culture positive for staph aureus. #3. Insulin-dependent diabetes mellitus. #4. Acute hypercapnic respiratory failure. Currently on ventilator. #5. S/p trach/PEG 10/23/17. #6. Hypernatremia secondary to free water losses from urine and lack of oral water intake. Improved. #7. Proteinuria. This is likely due to underlying diabetic kidney disease. #8. Hypokalemia from poor oral intake and urinary losses. Magnesium replete. Improved post replacement. Plan: He remains off all IV fluids. Tube feeds via PEG to be initiated later today. Antibiotics per infectious disease recommendations. Avoid nephrotoxic agents and hypotensive episodes. Continue to monitor renal function and urine output. Wean FiO2.
[2017-10-24 10:07] LABS: Glucose,Whole Blood 162 mg/dL (75-99)
[2017-10-24 11:01] LABS: Glucose,Whole Blood 145 mg/dL (75-99)
[2017-10-24] MEDS: INSULIN REGULAR 100 UNIT in SODIUM CHLORIDE 0.9% 100 ML IV SCH (11:07)
[2017-10-24] MEDS: CLEVIDIPINE BUTYRATE 25 MG in EMPTY BAG 1 BAG IV SCH (11:43)
[2017-10-24 12:07] LABS: Glucose,Whole Blood 151 mg/dL (75-99)
[2017-10-24 13:02] LABS: Glucose,Whole Blood 154 mg/dL (75-99)
--- NOTE | 2017-10-24 13:08 | P.PN ---
Subjective 52-year-old admitted to ICU secondary to sepsis leading to acute respiratory distress syndrome patient remains intubated on ventilator is being managed by replenishment buyer patient underwent irrigation and the bride meant of the left ankle twice during this hospitalization. Patient has MSSA in the joint and patient is presently on ceftezole and for that reason. Patient is intubated sedated and patient is on Precedex with anticipation of extubation tomorrow. 10/20/2017 Patient remains intubated patient is on high-dose of IV insulin and requiring large amounts of sedation remains in hypoxic respiratory failure had a low- grade fever today if he continues to have low-grade fevers or has a high-grade fever repeat blood cultures will be obtained 10/21/2017 Patient maintains intubated, still remains on 70% FiO2 and replenishment buyer his considering tracheostomy and PEG tube placement. Patient had low-grade fevers yesterday. Patient is on paralytic agents now with fairly well-controlled blood pressure, clevidipine was discontinued 10/22/2017 Patient's FiO2 has come down to 50% today no other significant changes were made to vent. 10/23/2017 Patient is going for a tracheostomy and PEG tube placement patient remains an FiO2 of 55% plan is to this can you paralytics after tracheostomy. 10/24/2017 Patient had a tracheostomy and PEG tube placement remains on 40% FiO2 and PEEP of 12 didn't have a bowel movement for a few days we'll try lactulose and senna through PEG tube. No significant change in his overall clinical condition plan is to wean off propofol Objective - Vital Signs Vital signs: Vital Signs Temp 98.7 F 10/24/17 12:00 Pulse 75 10/24/17 12:00 Resp 6 L 10/24/17 12:00 BP 154/64 10/24/17 12:00 Pulse Ox 93 L 10/24/17 12:11 Intake & Output 10/23/17 10/24/17 10/24/17 18:59 06:59 18:59 Intake Total 870.127 960.193 424.808 Output Total 3030 1420 900 Balance -2159.873 -459.807 -475.192 Weight 158.1 kg 158.1 kg Intake: IV 240 260 200 0.9 NS 240 260 100 Magnesium Sulfate-D5w Pmx 100 1 gm In Dextrose/Water 1 100ml.bag @ 100 mls/hr IVPB Q1H [facility] Rx#: [id number] Intake, IV Titration 630.127 700.193 224.808 Amount Insulin Regular 100 unit 48.127 76.192 24.808 In Sodium Chloride 0.9% 100 ml @ Per Protocol IV .Q0M [facility] Rx#:[id number] Propofol 1,000 mg In 582.000 624.001 200 Empty Bag 1 bag @ Per Protocol IV .Q0M [facility] Rx#: [id number] Tube Feeding 0 Output: Urine 3025 1420 900 Estimated Blood Loss 5 Other: Voiding Method Indwelling Catheter Indwelling Catheter Indwelling Catheter # Bowel Movements 0 ABP, PAP, CO, CI - Last Documented Arterial Blood Pressure 141/66 - Exam PHYSICAL EXAMINATION: GENERAL: Patient is intubated sedated, morbidly obese NG tube in place please refer to replenishment buyer dictation for further details of went settings, sedation score. HEENT: Pupils are round and equally reacting to light. EOMI. No scleral icterus. No conjunctival pallor. Normocephalic, atraumatic. No pharyngeal erythema. No thyromegaly. CARDIOVASCULAR: S1 and S2 present. No murmurs, rubs, or gallops. PULMONARY: Chest is clear to auscultation, no wheezing or crackles. ABDOMEN: Soft, nontender, nondistended, normoactive bowel sounds. No palpable organomegaly. MUSCULOSKELETAL: Patient left leg is wrapped in Geoffrey bandages EXTREMITIES: No cyanosis, clubbing, or pedal edema. NEUROLOGICAL: Unable to assess due to the above-mentioned reasons SKIN: No rashes. - Labs CBC & Chem 7: 10/24/17 05:01 10/24/17 05:01 Labs: Abnormal Lab Results - Last 24 Hours (Table) 10/23/17 10/23/17 10/23/17 Range/Units 14:27 16:28 17:45 WBC (3.8-10.6) k/uL RBC (4.30-5.90) m/uL Hgb (13.0-17.5) gm/dL Hct (39.0-53.0) % Plt Count (150-450) k/uL BUN (9-20) mg/dL Glucose (74-99) mg/dL POC Glucose (mg/dL) 158 H 202 H 179 H (75-99) mg/dL Phosphorus (2.5-4.5) mg/dL 10/23/17 10/23/17 10/23/17 Range/Units 19:10 19:41 21:09 WBC (3.8-10.6) k/uL RBC (4.30-5.90) m/uL Hgb (13.0-17.5) gm/dL Hct (39.0-53.0) % Plt Count (150-450) k/uL BUN (9-20) mg/dL Glucose (74-99) mg/dL POC Glucose (mg/dL) 183 H 178 H 180 H (75-99) mg/dL Phosphorus (2.5-4.5) mg/dL 10/23/17 10/23/17 10/24/17 Range/Units 21:47 23:12 00:00 WBC (3.8-10.6) k/uL RBC (4.30-5.90) m/uL Hgb (13.0-17.5) gm/dL Hct (39.0-53.0) % Plt Count (150-450) k/uL BUN (9-20) mg/dL Glucose (74-99) mg/dL POC Glucose (mg/dL) 154 H 148 H 155 H (75-99) mg/dL Phosphorus (2.5-4.5) mg/dL 10/24/17 10/24/17 10/24/17 Range/Units 01:08 01:56 03:05 WBC (3.8-10.6) k/uL RBC (4.30-5.90) m/uL Hgb (13.0-17.5) gm/dL Hct (39.0-53.0) % Plt Count (150-450) k/uL BUN (9-20) mg/dL Glucose (74-99) mg/dL POC Glucose (mg/dL) 145 H 148 H 142 H (75-99) mg/dL Phosphorus (2.5-4.5) mg/dL 10/24/17 10/24/17 10/24/17 Range/Units 04:13 04:53 05:01 WBC (3.8-10.6) k/uL RBC (4.30-5.90) m/uL Hgb (13.0-17.5) gm/dL Hct (39.0-53.0) % Plt Count (150-450) k/uL BUN 25 H (9-20) mg/dL Glucose 134 H (74-99) mg/dL POC Glucose (mg/dL) 134 H 133 H (75-99) mg/dL Phosphorus 4.9 H (2.5-4.5) mg/dL 10/24/17 10/24/17 10/24/17 Range/Units 05:01 06:06 06:59 WBC 13.8 H (3.8-10.6) k/uL RBC 3.32 L (4.30-5.90) m/uL Hgb 9.5 L (13.0-17.5) gm/dL Hct 29.4 L (39.0-53.0) % Plt Count 495 H (150-450) k/uL BUN (9-20) mg/dL Glucose (74-99) mg/dL POC Glucose (mg/dL) 154 H 155 H (75-99) mg/dL Phosphorus (2.5-4.5) mg/dL 10/24/17 10/24/17 10/24/17 Range/Units 08:12 09:15 10:05 WBC (3.8-10.6) k/uL RBC (4.30-5.90) m/uL Hgb (13.0-17.5) gm/dL Hct (39.0-53.0) % Plt Count (150-450) k/uL BUN (9-20) mg/dL Glucose (74-99) mg/dL POC Glucose (mg/dL) 166 H 171 H 162 H (75-99) mg/dL Phosphorus (2.5-4.5) mg/dL 10/24/17 10/24/17 10/24/17 Range/Units 11:00 11:55 13:00 WBC (3.8-10.6) k/uL RBC (4.30-5.90) m/uL Hgb (13.0-17.5) gm/dL Hct (39.0-53.0) % Plt Count (150-450) k/uL BUN (9-20) mg/dL Glucose (74-99) mg/dL POC Glucose (mg/dL) 145 H 151 H 154 H (75-99) mg/dL Phosphorus (2.5-4.5) mg/dL Assessment and Plan Plan: Acute septic arthritis of the left ankle, status post left ankle irrigation with debridement, twice during this hospitalization and patient has MSSA and patient is on ceftezolin. Acute hypoxemic respiratory failure requiring intubation and mechanical ventilation with failure to wean from mechanical ventilation, possibility of ARDS Acute severe sepsis with positive blood cultures for methicillin sensitive Staphylococcus Mental status changes, set secondary to sepsis encephalopath Diabetes mellitus: Per can you present regimen titrate as necessary Severe peripheral neuropathy History of chronic wounds and ulcerations of the lower extremities with cellulitis Charcot joints Morbid obesity Hypertension Hyperlipidemia Hypothyroidism Acute kidney injury Constipation: Management as mentioned above
[2017-10-24] MEDS ORDERED: LACTULOSE 20 GM/30 ML CUP PO PRN (13:09)
[2017-10-24 13:55] LABS: Glucose,Whole Blood 144 mg/dL (75-99)
[2017-10-24 15:50] LABS: Glucose,Whole Blood 128 mg/dL (75-99)
[2017-10-24] MEDS: SENNOSIDES-DOCUSATE SODIUM 1 EACH TAB PO SCH ×2 (16:58→20:19)
[2017-10-24 17:02] LABS: Glucose,Whole Blood 124 mg/dL (75-99)
--- NOTE | 2017-10-24 17:41 | P.PN ---
Subjective Progress Note Date: 10/24/17 Principal diagnosis: Acute septic arthritis of the left ankle, status post left ankle irrigation with debridement, acute hypoxemic respiratory failure requiring intubation and mechanical ventilation with failure to wean from mechanical ventilator despite daily interruption of sedation and spontaneous breathing trials, mental status changes, secondary to sepsis encephalopathy, ARDS, diabetes mellitus with poor glucose control, severe peripheral neuropathy, history of chronic wound with ulcerations to his lower extremities with cellulitis, Charcot joints, morbid obesity, hypertension, hyperlipidemia, morbid obesity, hypothyroid and acute kidney injury. POD #12 irrigation and debridement of left ankle, application of wound VAC left ankle. POD #8 irrigation debridement left ankle, application of wound VAC left ankle. POD #1 placement of #9 Bivona foamed cuff tracheostomy tube. POD #1 placement of percutaneous endoscopic gastrostomy tube. The patient is laying in bed and currently sedated on propofol, remains intubated with mechanical ventilator support. He is not following any verbal commands at this time. Objective - Vital Signs Vital signs: Vital Signs Temp 98.6 F 10/24/17 16:00 Pulse 78 10/24/17 16:00 Resp 20 10/24/17 16:00 BP 178/69 10/24/17 16:00 Pulse Ox 97 10/24/17 16:00 Intake & Output 10/23/17 10/24/17 10/24/17 18:59 06:59 18:59 Intake Total 870.127 960.193 677.958 Output Total 3030 1420 1240 Balance -2159.873 -459.807 -562.042 Weight 158.1 kg 158.1 kg Intake: IV 240 260 260 0.9 NS 240 260 160 Magnesium Sulfate-D5w Pmx 100 1 gm In Dextrose/Water 1 100ml.bag @ 100 mls/hr IVPB Q1H [facility] Rx#: [id number] Intake, IV Titration 630.127 700.193 417.958 Amount Insulin Regular 100 unit 48.127 76.192 24.808 In Sodium Chloride 0.9% 100 ml @ Per Protocol IV .Q0M [facility] Rx#:[id number] Propofol 1,000 mg In 582.000 624.001 393.15 Empty Bag 1 bag @ Per Protocol IV .Q0M [facility] Rx#: [id number] Tube Feeding 0 Output: Urine 3025 1420 1240 Estimated Blood Loss 5 Other: Voiding Method Indwelling Catheter Indwelling Catheter Indwelling Catheter # Bowel Movements 0 ABP, PAP, CO, CI - Last Documented Arterial Blood Pressure 137/80 - Constitutional General appearance: Present: no acute distress, obese - Respiratory Details: Lung sounds are with few scattered rhonchi throughout, diminished bilateral bases. Respirations are symmetrical and nonlabored with mechanical ventilator support. Current mechanical ventilator settings are assist control 26, TV 500, FiO2 50%, PEEP 12. #9 Bivona foam cuff tracheostomy midline and intact. - Cardiovascular Details: Regular rhythm and rate. S1 and S2 present, negative for S3, gallop or murmur. Bedside telemetry showing normal sinus rhythm heart rate 75. Generalized edema present. - Gastrointestinal Gastrointestinal Comment(s): Abdomen is soft and nondistended. Active bowel sounds all 4 abdominal quadrants. PEG tube in place with tube feeding infusing as ordered. - Genitourinary Genitourinary Comment(s): Riddle catheter for accurate I&O. Draining clear german urine. 1240 mL output in the last 8 hours. - Integumentary Integumentary Comment(s): Skin is warm and dry. Left lower extremity Geoffrey wrap in place from toes to knee. Right great toe post amputation, healed. No rash or abnormal pigmentation present. Tracheostomy tube is midline and intact, PEG tube is clean dry and intact. - Neurologic Neurologic Comment(s): Currently sedated on propofol drip. - Allied health notes Allied health notes reviewed: nursing - Labs CBC & Chem 7: 10/24/17 05:01 10/24/17 05:01 Labs: Abnormal Lab Results - Last 24 Hours (Table) 10/23/17 10/23/17 10/23/17 Range/Units 17:45 19:10 19:41 WBC (3.8-10.6) k/uL RBC (4.30-5.90) m/uL Hgb (13.0-17.5) gm/dL Hct (39.0-53.0) % Plt Count (150-450) k/uL BUN (9-20) mg/dL Glucose (74-99) mg/dL POC Glucose (mg/dL) 179 H 183 H 178 H (75-99) mg/dL Phosphorus (2.5-4.5) mg/dL 10/23/17 10/23/1710/23/18 Range/Units 21:09 21:47 23:12 WBC (3.8-10.6) k/uL RBC (4.30-5.90) m/uL Hgb (13.0-17.5) gm/dL Hct (39.0-53.0) % Plt Count (150-450) k/uL BUN (9-20) mg/dL Glucose (74-99) mg/dL POC Glucose (mg/dL) 180 H 154 H 148 H (75-99) mg/dL Phosphorus (2.5-4.5) mg/dL 10/24/17 10/24/17 10/24/17 Range/Units 00:00 01:08 01:56 WBC (3.8-10.6) k/uL RBC (4.30-5.90) m/uL Hgb (13.0-17.5) gm/dL Hct (39.0-53.0) % Plt Count (150-450) k/uL BUN (9-20) mg/dL Glucose (74-99) mg/dL POC Glucose (mg/dL) 155 H 145 H 148 H (75-99) mg/dL Phosphorus (2.5-4.5) mg/dL 10/24/17 10/24/17 10/24/17 Range/Units 03:05 04:13 04:53 WBC (3.8-10.6) k/uL RBC (4.30-5.90) m/uL Hgb (13.0-17.5) gm/dL Hct (39.0-53.0) % Plt Count (150-450) k/uL BUN (9-20) mg/dL Glucose (74-99) mg/dL POC Glucose (mg/dL) 142 H 134 H 133 H (75-99) mg/dL Phosphorus (2.5-4.5) mg/dL 10/24/17 10/24/17 10/24/17 Range/Units 05:01 05:01 06:06 WBC 13.8 H (3.8-10.6) k/uL RBC 3.32 L (4.30-5.90) m/uL Hgb 9.5 L (13.0-17.5) gm/dL Hct 29.4 L (39.0-53.0) % Plt Count 495 H (150-450) k/uL BUN 25 H (9-20) mg/dL Glucose 134 H (74-99) mg/dL POC Glucose (mg/dL) 154 H (75-99) mg/dL Phosphorus 4.9 H (2.5-4.5) mg/dL 10/24/17 10/24/17 10/24/17 Range/Units 06:59 08:12 09:15 WBC (3.8-10.6) k/uL RBC (4.30-5.90) m/uL Hgb (13.0-17.5) gm/dL Hct (39.0-53.0) % Plt Count (150-450) k/uL BUN (9-20) mg/dL Glucose (74-99) mg/dL POC Glucose (mg/dL) 155 H 166 H 171 H (75-99) mg/dL Phosphorus (2.5-4.5) mg/dL 10/24/17 10/24/17 10/24/17 Range/Units 10:05 11:00 11:55 WBC (3.8-10.6) k/uL RBC (4.30-5.90) m/uL Hgb (13.0-17.5) gm/dL Hct (39.0-53.0) % Plt Count (150-450) k/uL BUN (9-20) mg/dL Glucose (74-99) mg/dL POC Glucose (mg/dL) 162 H 145 H 151 H (75-99) mg/dL Phosphorus (2.5-4.5) mg/dL 10/24/17 10/24/17 10/24/17 Range/Units 13:00 13:53 15:48 WBC (3.8-10.6) k/uL RBC (4.30-5.90) m/uL Hgb (13.0-17.5) gm/dL Hct (39.0-53.0) % Plt Count (150-450) k/uL BUN (9-20) mg/dL Glucose (74-99) mg/dL POC Glucose (mg/dL) 154 H 144 H 128 H (75-99) mg/dL Phosphorus (2.5-4.5) mg/dL 10/24/17 Range/Units 17:00 WBC (3.8-10.6) k/uL RBC (4.30-5.90) m/uL Hgb (13.0-17.5) gm/dL Hct (39.0-53.0) % Plt Count (150-450) k/uL BUN (9-20) mg/dL Glucose (74-99) mg/dL POC Glucose (mg/dL) 124 H (75-99) mg/dL Phosphorus (2.5-4.5) mg/dL - Imaging and Cardiology Chest x-ray: report reviewed, image reviewed Assessment and Plan (1) Acute kidney injury Current Visit: Yes Status: Acute Code(s): N17.9 - ACUTE KIDNEY FAILURE, UNSPECIFIED SNOMED Code(s): 95370951 (2) Acute respiratory failure with hypoxia Current Visit: Yes Status: Acute Code(s): J96.01 - ACUTE RESPIRATORY FAILURE WITH HYPOXIA SNOMED Code(s): 61475322 (3) Sepsis Current Visit: Yes Status: Acute Priority: Medium Code(s): A41.9 - SEPSIS , UNSPECIFIED ORGANISM SNOMED Code(s): 29547493 (4) Septic arthritis of left ankle Current Visit: Yes Status: Acute Code(s): M00.9 - PYOGENIC ARTHRITIS, UNSPECIFIED SNOMED Code(s): 96060598 (5) Charcot ankle Current Visit: Yes Status: Chronic Code(s): M14.679 - CHARCOT'S JOINT, UNSPECIFIED ANKLE AND FOOT SNOMED Code(s): 685355098 (6) Diabetes mellitus Current Visit: Yes Status: Chronic Code(s): E11.9 - TYPE 2 DIABETES MELLITUS WITHOUT COMPLICATIONS SNOMED Code(s): 01600238 (7) Hyperlipidemia associated with type 2 diabetes mellitus Current Visit: Yes Status: Chronic Code(s): E11.69 - TYPE 2 DIABETES MELLITUS WITH OTHER SPECIFIED COMPLICATION; E78.5 - HYPERLIPIDEMIA, UNSPECIFIED SNOMED Code(s): 227489092907 (8) Hypertension Current Visit: Yes Status: Chronic Code(s): I10 - ESSENTIAL (PRIMARY) HYPERTENSION SNOMED Code(s): 50359682 (9) Hypothyroid Current Visit: Yes Status: Chronic Code(s): E03.9 - HYPOTHYROIDISM, UNSPECIFIED SNOMED Code(s): 11405063 (10) Morbid obesity with BMI of 45.0-49.9, adult Current Visit: Yes Status: Chronic Code(s): E66.01 - MORBID (SEVERE) OBESITY DUE TO EXCESS CALORIES; Z68.42 - BODY MASS INDEX (BMI) 45.0-49.9, ADULT SNOMED Code(s): 032458682 (11) Cellulitis Current Visit: No Status: Acute Priority: Medium Code(s): L03.90 - CELLULITIS, UNSPECIFIED SNOMED Code(s): 157868641 (12) Tobacco dependence in remission Current Visit: No Status: Resolved Code(s): F17.201 - NICOTINE DEPENDENCE, UNSPECIFIED, IN REMISSION SNOMED Code(s): 709870642 Plan: 1. Patient had tracheostomy tube and PEG tube placement yesterday 10/23/2017 we will follow the patient on an as-needed basis. Time with Patient: Greater than 30
[2017-10-24 17:54] LABS: Glucose,Whole Blood 142 mg/dL (75-99)
[2017-10-24 19:55] LABS: Glucose,Whole Blood 157 mg/dL (75-99)
[2017-10-24] MEDS: LACTATED RINGERS 1,000 ML IV SCH (20:00)
[2017-10-24 22:03] LABS: Glucose,Whole Blood 162 mg/dL (75-99)
--- NOTE | 2017-10-24 22:29 | P.PN ---
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 The patient is been having some difficulties with his left ankle and following with the orthopedic surgeon. Because of some discomfort at the joint he was measured and given a new bracing device for the foot and ankle. However grommet on the dorsum of the foot resulted in a bit of an ulcer and he was concerned and sought care in the office. The patient had difficulty making the appointment because of the weather and has significant distance from work to the office and reschedule. When he came to the office earlier this week the ulceration had healed and he was feeling better but was still having some swelling to the ankle area. He had no fever or chills at the time of presentation to the office, but did have the swelling to the ankle area for which she had a specialty boot that have been designed that he was not wearing that day. He however presents to the emergency center because of the sudden onset of inability to bear weight to the ankle because of the amount of pain that he started to have. Shortly thereafter he became febrile and has had a rapid decline in his status with evidence of sepsis and presentation to the intensive care unit. The case is discussed with the sales appointment coordinator as well as the orthopedic foot and ankle specialist. Given his rapid decline in status he'll go to the operating room this afternoon. The patient is acutely ill with fever chills generalized weakness and malaise and some alteration of his mental status 10/13/2017 patient remains in intensive care unit with ongoing sepsis. Appears to have acute lung injury and also has an elevation of his creatinine likely with an acute renal injury also occurring from his sepsis. Laboratories revealed evidence of staph aureus await final susceptibility. Follow blood cultures in process reasonable cultures are positive. Patient continues to have some ongoing fevers and is admitted of nausea with the response to Zofran. He is still in a warm flushed phase of sepsis and hopefully now that he has been resuscitated will have further improvement of his status. 10/14/2017 patient does have some improvement today. He is not hypotensive not requiring vasopressors but is still on high flow oxygen for his acute lung injury. He has had fevers but down to 99.9 still feels poorly and has significant pain of the left foot and ankle area. 10/15/2017 the patient had deterioration of his respiratory status last night with his acute lung injury and developing early ARDS. He required intubation with sedation and mechanical ventilation. With improved sedation he is quite comfortable today and is synchronous with the vent with adequate oxygenation and improved blood gas. The patient is quite comfortable at this time and receiving tube feeds for his nutritional needs. Fever and leukocytosis are trending down 10/16/2017 is noted the patient remains ventilated as well as with intubation and sedation. He is quite comfortable today. Has been taking back to the operating room for further evaluation of the medial aspect of the right ankle, some infected bone was debrided but no further extensive pockets of purulence were found. Wound VAC applied. 10/17/2017 patient has had a weaning trial today but it was not successful in counseling. Remains intubated sedated and mechanically ventilated. He does to do quite comfortable. Wound vacs are in place after the debridement of yesterday to the left foot. Fever has trended down and he is hemodynamically stable 10/18/2017 the patient had an attempt for a weaning trial but this however did not go well the patient became significantly hypertensive. With multiple medications this is now settled. Today the wound vacs will be changed further care will be given. Is much more calm this afternoon and hopefully further weaning trials will go well over the next few days. The fever has resolved and there is now a negative blood culture. 2017 patient remains in ICU intubated sedated and paralyzed due to the ARDS which is resulting in detention respiratory failure. 10/22/2017 reveals the patient to have a slightly improved ventilatory status he is down to 55% FiO2 and PEEP is at 12. He has been evaluated by Dr. Zepeda for tracheostomy and PEG tube placement in the near future. The patient seems to be quite comfortable and with the current sedation and paralysis. Ventilating well 10/23/2017 patient is post-tracheostomy and PEG tube placement today.the patient is being readied for transition to a ventilator facility. 10/24/2017 patient is comfortable on current level of sedation. Ongoing attempts for reduction of level of sedation and ventilation support her in process. No new wounds. Objective - Vital Signs Vital signs: Vital Signs Temp 99.3 F 10/24/17 20:00 Pulse 79 10/24/17 21:00 Resp 21 10/24/17 21:00 BP 166/72 10/24/17 21:00 Pulse Ox 98 10/24/17 21:00 Intake & Output 10/24/17 10/24/17 10/25/17 06:59 18:59 06:59 Intake Total 960.193 872.130 274.457 Output Total 1420 1480 250 Balance -459.807 -607.870 24.457 Weight 158.1 kg 158.1 kg Intake: IV 260 320 60 0.9 NS 260 220 60 Magnesium Sulfate-D5w Pmx 100 1 gm In Dextrose/Water 1 100ml.bag @ 100 mls/hr IVPB Q1H [facility] Rx#: [id number] Intake, IV Titration 700.193 552.130 144.457 Amount Insulin Regular 100 unit 76.192 58.980 18.304 In Sodium Chloride 0.9% 100 ml @ Per Protocol IV .Q0M [facility] Rx#:[id number] Propofol 1,000 mg In 624.001 493.15 126.153 Empty Bag 1 bag @ Per Protocol IV .Q0M [facility] Rx#: [id number] Tube Feeding 40 Other 30 Output: Urine 1420 1480 250 Other: Voiding Method Indwelling Catheter Indwelling Catheter Indwelling Catheter # Bowel Movements 0 ABP, PAP, CO, CI - Last Documented Arterial Blood Pressure 137/80 - Exam 52-year-old male presents to Hospital feeling acutely ill found to have evidence of fever and then rapidly developed sepsis, HEENT: Anicteric conjunctiva are pink and moist nasal mucosa grossly intact without significant lesions, remains sedated and tracheostomy has beehe site Neck: The neck is supple without significant lymphadenopathy or thyromegaly. Lungs: Good bilateral air entry with harsh breath sounds Heart: regular with an audible S1 and S2 soft S4 There is no significant murmur click or rub, PMI was nondisplaced. Abdomen: Obese Positive bowel sounds soft and nontender without palpable masses or organomegaly. There was no guarding or rebound. Extremities: The upper extremities have excellent pulses they are symmetric, no significant petechiae or telangiectasia. No splinter hemorrhages were noted. Right lower extremity has evidence of the prior great toe amputation which is well healed. Left lower extremity reveals evidence of the surgical incisions with silver dressings in place. There is still some swelling but the extensive swelling at the ankle has started to improve. There is no inguinal lymphadenopathy. Neuro: Sedated,paralyzed and mechanically ventilated - Labs CBC & Chem 7: 10/24/17 05:01 10/24/17 05:01 Labs: Abnormal Lab Results - Last 24 Hours (Table) 10/23/17 10/24/17 10/24/17 Range/Units 23:12 00:00 01:08 WBC (3.8-10.6) k/uL RBC (4.30-5.90) m/uL Hgb (13.0-17.5) gm/dL Hct (39.0-53.0) % Plt Count (150-450) k/uL BUN (9-20) mg/dL Glucose (74-99) mg/dL POC Glucose (mg/dL) 148 H 155 H 145 H (75-99) mg/dL Phosphorus (2.5-4.5) mg/dL 10/24/17 10/24/17 10/24/17 Range/Units 01:56 03:05 04:13 WBC (3.8-10.6) k/uL RBC (4.30-5.90) m/uL Hgb (13.0-17.5) gm/dL Hct (39.0-53.0) % Plt Count (150-450) k/uL BUN (9-20) mg/dL Glucose (74-99) mg/dL POC Glucose (mg/dL) 148 H 142 H 134 H (75-99) mg/dL Phosphorus (2.5-4.5) mg/dL 10/24/17 10/24/17 10/24/17 Range/Units 04:53 05:01 05:01 WBC 13.8 H (3.8-10.6) k/uL RBC 3.32 L (4.30-5.90) m/uL Hgb 9.5 L (13.0-17.5) gm/dL Hct 29.4 L (39.0-53.0) % Plt Count 495 H (150-450) k/uL BUN 25 H (9-20) mg/dL Glucose 134 H (74-99) mg/dL POC Glucose (mg/dL) 133 H (75-99) mg/dL Phosphorus 4.9 H (2.5-4.5) mg/dL 10/24/17 10/24/17 10/24/17 Range/Units 06:06 06:59 08:12 WBC (3.8-10.6) k/uL RBC (4.30-5.90) m/uL Hgb (13.0-17.5) gm/dL Hct (39.0-53.0) % Plt Count (150-450) k/uL BUN (9-20) mg/dL Glucose (74-99) mg/dL POC Glucose (mg/dL) 154 H 155 H 166 H (75-99) mg/dL Phosphorus (2.5-4.5) mg/dL 10/24/17 10/24/17 10/24/17 Range/Units 09:15 10:05 11:00 WBC (3.8-10.6) k/uL RBC (4.30-5.90) m/uL Hgb (13.0-17.5) gm/dL Hct (39.0-53.0) % Plt Count (150-450) k/uL BUN (9-20) mg/dL Glucose (74-99) mg/dL POC Glucose (mg/dL) 171 H 162 H 145 H (75-99) mg/dL Phosphorus (2.5-4.5) mg/dL 10/24/17 10/24/17 10/24/17 Range/Units 11:55 13:00 13:53 WBC (3.8-10.6) k/uL RBC (4.30-5.90) m/uL Hgb (13.0-17.5) gm/dL Hct (39.0-53.0) % Plt Count (150-450) k/uL BUN (9-20) mg/dL Glucose (74-99) mg/dL POC Glucose (mg/dL) 151 H 154 H 144 H (75-99) mg/dL Phosphorus (2.5-4.5) mg/dL 10/24/17 10/24/17 10/24/17 Range/Units 15:48 17:00 17:52 WBC (3.8-10.6) k/uL RBC (4.30-5.90) m/uL Hgb (13.0-17.5) gm/dL Hct (39.0-53.0) % Plt Count (150-450) k/uL BUN (9-20) mg/dL Glucose (74-99) mg/dL POC Glucose (mg/dL) 128 H 124 H 142 H (75-99) mg/dL Phosphorus (2.5-4.5) mg/dL 10/24/17 10/24/17 Range/Units 19:53 22:00 WBC (3.8-10.6) k/uL RBC (4.30-5.90) m/uL Hgb (13.0-17.5) gm/dL Hct (39.0-53.0) % Plt Count (150-450) k/uL BUN (9-20) mg/dL Glucose (74-99) mg/dL POC Glucose (mg/dL) 157 H 162 H (75-99) mg/dL Phosphorus (2.5-4.5) mg/dL Laboratory Results WBC 13.8 k/uL (3.8-10.6) H 10/24/17 05:01 RBC 3.32 m/uL (4.30-5.90) L 10/24/17 05:01 Hgb 9.5 gm/dL (13.0-17.5) L 10/24/17 05:01 Hct 29.4 % (39.0-53.0) L 10/24/17 05:01 MCV 88.5 fL (80.0-100.0) 10/24/17 05:01 MCH 28.7 pg (25.0-35.0) 10/24/17 05:01 MCHC 32.4 g/dL (31.0-37.0) 10/24/17 05:01 RDW 13.9 % (11.5-15.5) 10/24/17 05:01 Plt Count 495 k/uL (150-450) H 10/24/17 05:01 Neutrophils % 81 % 10/18/17 05:00 Neutrophils % (Manual) 82 % 10/21/17 06:00 Band Neutrophils % 8 % 10/20/17 05:00 Lymphocytes % 10 % 10/18/17 05:00 Lymphocytes % (Manual) 9 % 10/21/17 06:00 Monocytes % 4 % 10/18/17 05:00 Monocytes % (Manual) 5 % 10/21/17 06:00 Eosinophils % 3 % 10/18/17 05:00 Eosinophils % (Manual) 3 % 10/20/17 05:00 Basophils % 1 % 10/18/17 05:00 Basophils % (Manual) 1 % 10/20/17 05:00 Metamyelocytes % 4 % 10/20/17 05:00 Myelocytes % 4 % 10/21/17 06:00 Neutrophils # 16.1 k/uL (1.3-7.7) H 10/18/17 05:00 Neutrophils # (Manual) 13.45 k/uL (1.3-7.7) H 10/21/17 06:00 Lymphocytes # 2.0 k/uL (1.0-4.8) 10/18/17 05:00 Lymphocytes # (Manual) 1.48 k/uL (1.0-4.8) 10/21/17 06:00 Monocytes # 0.8 k/uL (0-1.0) 10/18/17 05:00 Monocytes # (Manual) 0.82 k/uL (0-1.0) 10/21/17 06:00 Eosinophils # 0.7 k/uL (0-0.7) 10/18/17 05:00 Eosinophils # (Manual) 0.53 k/uL (0-0.7) 10/20/17 05:00 Basophils # 0.1 k/uL (0-0.2) 10/18/17 05:00 Basophils # (Manual) 0.18 k/uL (0-0.2) 10/20/17 05:00 Metamyelocytes # (Man) 0.70 k/uL (0) H 10/20/17 05:00 Myelocytes # (Manual) 0.66 k/uL (0) H 10/21/17 06:00 Nucleated RBCs 0 /100 WBC (0-0) 10/21/17 06:00 Manual Slide Review Performed 10/21/17 06:00 Toxic Granulation Present 10/20/17 05:00 Large Platelets Present 10/21/17 06:00 Polychromasia Present 10/21/17 06:00 Hypochromasia Slight 10/24/17 05:01 ESR 25 mm/hr (0-15) H 10/12/17 07:29 Sample Site [place] 10/23/17 05:04 ABG pH 7.38 (7.35-7.45) 10/23/17 05:04 ABG pCO2 47 mmHg (35-45) H 10/23/17 05:04 ABG pO2 97 mmHg (83-108) 10/23/17 05:04 ABG HCO3 28 mmol/L (21-25) H 10/23/17 05:04 ABG Total CO2 30 mmol/L (19-24) H 10/23/17 05:04 ABG O2 Saturation 97.2 % (94-97) H 10/23/17 05:04 ABG Base Excess 3.1 mmol/L 10/23/17 05:04 Cr Test Yes 10/23/17 05:04 ABG Lactic Acid 1.0 mmol/L (0.5-1.6) 10/12/17 18:06 FiO2 55 % 10/23/17 05:04 Sodium 142 mmol/L (137-145) 10/24/17 05:01 Potassium 4.2 mmol/L (3.5-5.1) 10/24/17 05:01 Chloride 105 mmol/L (98-107) 10/24/17 05:01 Carbon Dioxide 27 mmol/L (22-30) 10/24/17 05:01 Anion Gap 10 mmol/L 10/24/17 05:01 BUN 25 mg/dL (9-20) H 10/24/17 05:01 Creatinine 0.70 mg/dL (0.66-1.25) 10/24/17 05:01 Est GFR (CKD-EPI)AfAm >90 (>60 ml/min/1.73 sqM) 10/24/17 05:01 Est GFR (CKD-EPI)NonAf >90 (>60 ml/min/1.73 sqM) 10/24/17 05:01 Glucose 134 mg/dL (74-99) H 10/24/17 05:01 POC Glucose (mg/dL) 162 mg/dL (75-99) H 10/24/17 22:00 POC Glu Fire Warden ID Dory Townsend 10/24/17 22:[address] Glu mg/dL 214 10/12/17 07:29 Hemoglobin A1c 9.1 % (4.0-6.0) H 10/12/17 07:29 Plasma Lactic Acid Ron 1.5 mmol/L (0.7-2.0) 10/11/17 21:10 Uric Acid 5.6 mg/dL (3.5-8.5) 10/11/17 21:10 Calcium 9.3 mg/dL (8.4-10.2) 10/24/17 05:01 Phosphorus 4.9 mg/dL (2.5-4.5) H 10/24/17 05:01 Magnesium 1.9 mg/dL (1.6-2.3) 10/24/17 05:01 AST 96 U/L (17-59) H 10/13/17 19:55 ALT 58 U/L (21-72) 10/13/17 19:55 C-Reactive Protein 45.1 mg/L (<10.0) H 10/11/17 21:10 Urine Color Yellow 10/15/17 11:30 Urine Appearance Clear (Clear) 10/15/17 11:30 Urine pH 6.0 (5.0-8.0) 10/15/17 11:30 Ur Specific [place] 1.018 (1.001-1.035) 10/15/17 11:30 Urine Protein 1+ (Negative) H 10/15/17 11:30 Urine Glucose (UA) 3+ (Negative) H 10/15/17 11:30 Urine Ketones Negative (Negative) 10/15/17 11:30 Urine Blood Small (Negative) H 10/15/17 11:30 Urine Nitrite Negative (Negative) 10/15/17 11:30 Urine Bilirubin Negative (Negative) 10/15/17 11:30 Urine Urobilinogen <2.0 mg/dL (<2.0) 10/15/17 11:30 Ur Leukocyte Esterase Negative (Negative) 10/15/17 11:30 Urine RBC <1 /hpf (0-5) 10/15/17 11:30 Urine WBC 3 /hpf (0-5) 10/15/17 11:30 Urine Mucus Rare /hpf (None) H 10/15/17 11:30 Blood Type O Positive 10/21/17 13:30 Blood Type Recheck No 10/21/17 13:30 Antibody Screen NEGATIVE 10/21/17 13:30 Spec Expiration Date 10/24/2017 - 232910/21/17 13:30 Microbiology 10/17/17 05:50 Blood Blood Culture - Final No Growth after 144 hours 10/17/17 04:07 Blood Blood Culture - Final No Growth after 144 hours 10/15/17 05:15 Sputum Gram Stain - Final 10/15/17 05:15 Sputum Sputum Culture - Final Jayne albicans 10/13/17 08:45 Blood Blood Culture Gram Stain - Final 10/13/17 08:45 Blood Blood Culture - Final Staphylococcus aureus 10/12/17 19:48 Ankle - Left Anaerobic Culture - Final 10/12/17 19:48 Ankle - Left Anaerobic Culture - Final 10/13/17 07:25 Blood Blood Culture Gram Stain - Final 10/13/17 07:25 Blood Blood Culture - Final Staphylococcus aureus 10/12/17 19:48 Ankle - Left Gram Stain - Final 10/12/17 19:48 Ankle - Left Wound Culture - Final Staph aureus 10/12/17 19:48 Ankle - Left Gram Stain - Final 10/12/17 19:48 Ankle - Left Wound Culture - Final Staphylococcus aureus 10/12/17 09:27 Synovial Fluid Gram Stain - Final 10/12/17 09:27 Synovial Fluid Body Fluid Culture - Final Staphylococcus aureus 10/13/17 07:25 Blood Blood Culture - Final 10/13/17 08:45 Blood Blood Culture - Final 10/11/17 21:15 Blood Blood Culture Gram Stain - Final 10/11/17 21:15 Blood Blood Culture - Final Staphylococcus aureus 10/11/17 21:15 Blood Blood Culture - Final Assessment and Plan (1) Septic arthritis of left ankle Narrative/Plan: 52-year-old male presents the emergency center with inability to bear weight to his left ankle. The patient has had some new orthotic boot manufactured in a developed a small ulcer on the dorsum of the left foot. This apparently was from a grommet from an orthotic. This was completely healed and was evaluated but was still having ongoing difficulties with ankle area. Is actively following up with orthopedic foot and ankle. The patient does have a boot that was designed that he was not wearing when he came to the office and understands it is important that he wears this when he is at work to protect his ankle from the [place] changes. Patient however now has high-grade fever chills leukocytosis and laboratories: Positive blood culture with gram-positive cocci. The patient did have aspiration per orthopedic ankle grossly purulent material was found. Originally the plan was to go to the operating him in the morning but as the patient felt worsening sepsis he is no scheduled operating room this afternoon for the incision and drainage of this abscess. Deep cultures and pathology will also be sent. Antibiotic therapy is altered from vancomycin to daptomycin. In hopes to have a more rapid bacteriocidal activity given his rapidly declining status. Enhance glucose control be important part of his healing. Leukocytosis record related to his current sepsis. There is evidence of possible culture and he will require follow blood cultures in the morning. He was monitored for any persistence of his bacteremia. There will be a coordinated effort between orthopedic ankle and infectious disease as to the care at discharge. 10/13/2017 reveals the patient still needs intensive care unit after surgery with ongoing sepsis. Continues to have fever and leukocytosis and difficulties with acute lung injury and now elevated creatinine to 2.0. Patient continues to be resuscitated and has had some improvement but minimal at this point in time. He will continue with maneuvers to improve his fever maintain his hydration and antibiotic therapy continues with daptomycin for both staph aureus and MRSA, blood culture and aspirate from the ankle are still showing staph aureus final susceptibility is pending. Patient aware that if he improves he will be receiving a jg completed a long course of IV antibiotic therapy for this extensive infection. Leukocytosis directly related to the sepsis 10/14/2017 the patient remains in intensive care unit, high flow oxygen is being utilized for his acute lung injury. His creatinine has increased further is now 2.0. Urine output is adequate. He is symptomatically stable is having difficulties with shortness of breath. Pain at the foot and ankle is predictable but the significant swelling history improving after surgical incision and drainage. Ulceration is treated with a medical history dressing. If there is no further marked improvement by tomorrow the patient will likely go back to the operating him for further incision and drainage to the site. The case is discussed with the orthopedic surgeon. 10/15/2017 the patient is noted had a decline of his status and his required intubation with sedation mechanical ventilation and is now much more comfortable. His pulmonary status is improved with the intervention. He has not requiring vasopressor therapy. We'll do blood cultures verified MSSA and antibiotic therapy was transitioned to high dose cefazolin. The patient is evaluated in conjunction with the orthopedic surgeon and the plan is for the patient to have further debridement of the ankle tomorrow to ensure there is complete drainage of any abscess at that joint site given the progression of his underlying illness. Fortunately he has not hemodynamic stable and is having improvement of his leukocytosis. We'll expect as a sepsis improves his pulmonary injury will improve also. His creatinine peaked at 2.10 now down to 2.0 and nephrology has evaluated. Follow blood cultures to ensure clearance of his bacteremia. Echocardiogram without evidence of vegetations. Is not the case is discussed with the orthopedic surgeon as well as the patient' s . 10/16/2017 the patient's been taking to the operating room today for further debridement of the left ankle. Some necrotic bone was debrided but no further large pockets of abscess were seen. Wound vacs are applied. We'll continue his high-dose antibiotic therapy for his MSSA infection from the septic arthritis left ankle. There are several evidences of improvement today, still requires no vasopressor therapy. We'll expect as he starting to improve we need to start in the next day or so. Once he is evidence of clearance of his bacteremia will need IV access placed for his long-term IV antibiotic therapy. 10/17/2017 patient is hemodynamically stable without acute no difficulties today. He over did not do well with a weaning trial. Will be tried on a daily basis as per the system support administrator. He is hemodynamic stable and his adequate urinary output. We'll continue high-dose cefazolin and supportive care. It is likely that the wound vacs removed tomorrow with further evaluation of the ankle wounds at that time. Supportive care continues he's had a slight improvement of his creatinine and his sodium is improving. 10/18/2017 the patient remains medically stable and that her vasopressor therapy. Insulin drip is reduced. He did not do well with weaning trial today with significant hypertensive response. With the medications is better at this time. Acute renal failure has resolved leukocytosis is trending to improvement. And there is no negative blood culture from October 17. If the patient improves we'll transition to alternative IV access was for a dual lumen PICC line to be placed this will help us transition to his outpatient intravenous antibiotic therapy when he is improved. The wound VAC is removed at this point in time. Saline moistened opticell silver is applied without difficulty. This will be changed every other day. Pulmonary critical care will continue to move toward extubation. 10/21/2017 patient continues to have respiratory failure 10/21/2017 patient continues to have respiratory failure with ongoing intubation sedation and mechanical ventilation he is hemodynamically stable. Remains on insulin drip. Vital respiratory failure the patient will undergo tracheostomy and PEG tube placement later this week. 10/22/2017 patient remains intubated sedated paralyzed and mechanically ventilated. Tracheostomy is to happen soon. His MSSA sepsis is under control this point in time is developed ARDS and will require long-term weaning. Fever and leukocytosis have improved no other infections are noted local wound care to the ankle reveals evidence of the improving surgical wounds. 10/23/2017 the patient is now status Constantly ongoing plans for long-term weaning. Local wound care is with silver dressing.as infection is improving there will Be a possibility for negative pressure therapy system. Currently plan 6 weeks of intravenous antibiotic therapy for his MSSA sepsis. Pulmonary is following regarding his ARDS. Remains on an insulin drip through most the day. 10/24/2017 patient continues for the slow weaning process. Goal of the next 48 hours as further reduction of his propofol requirements so that he will become a candidate for long-term vent facility for his long-term weaning that will be required. The extensive infection to the left ankle area has been surgically debrided on 2 occasions and the leg is much improved. Bactrim has been resolved for quite some time. Is moderate ARDS and showing some slight improvement to the day today. Plan intravenous antibiotic therapy until 2017 Current Visit: Yes Status: Acute Code(s): M00.9 - PYOGENIC ARTHRITIS, UNSPECIFIED SNOMED Code(s): 55086347 (2) Sepsis Current Visit: Yes Status: Acute Priority: Medium Code(s): A41.9 - SEPSIS , UNSPECIFIED ORGANISM SNOMED Code(s): 24284968 (3) Poorly controlled type 2 diabetes mellitus with complication Current Visit: Yes Status: Chronic Code(s): E11.8 - TYPE 2 DIABETES MELLITUS WITH UNSPECIFIED COMPLICATIONS; E11.65 - TYPE 2 DIABETES MELLITUS WITH HYPERGLYCEMIA SNOMED Code(s): 10959553
[2017-10-25 00:05] LABS: Glucose,Whole Blood 147 mg/dL (75-99)
[2017-10-25] MEDS: HEPARIN SODIUM,PORCINE 5,000 UNIT/ML 1 ML VIAL SQ SCH ×4 (00:18→23:15)
[2017-10-25] MEDS: METOCLOPRAMIDE 5 MG/ML 2 ML VIAL IVP SCH ×5 (00:18→23:17)
[2017-10-25] MEDS: ceFAZolin IN SWFI 2 GM/20 ML SYRINGE IVP SCH ×4 (00:18→23:15)
[2017-10-25] MEDS: PROPOFOL 1,000 MG in EMPTY BAG 1 BAG IV SCH ×4 (00:45→08:49)
[2017-10-25 01:55] LABS: Glucose,Whole Blood 168 mg/dL (75-99)
[2017-10-25] MEDS: IPRATROPIUM-ALBUTEROL 3 ML NEB INHALATION SCH ×6 (03:04→23:05)
[2017-10-25 04:21] LABS: Glucose,Whole Blood 184 mg/dL (75-99)
[2017-10-25 04:34] LABS: ABG Base Excess 5.4 mmol/L; ABG HCO3 30 mmol/L (21-25); ABG Oxygen Saturation 99.1 % (94-97); ABG PCO2 48 mmHg (35-45); ABG PH 7.41 (7.35-7.45); ABG PO2 132 mmHg (83-108); ABG TCO2 32 mmol/L (19-24)
[2017-10-25 04:58] LABS: Anion Gap 10 mmol/L; Blood Urea Nitrogen 23 mg/dL (9-20); Calcium 8.8 mg/dL (8.4-10.2); Carbon Dioxide 26 mmol/L (22-30); Chloride 100 mmol/L (98-107); Glucose 155 mg/dL (74-99); Magnesium 1.8 mg/dL (1.6-2.3); Phosphorus 4.2 mg/dL (2.5-4.5); Potassium 4.1 mmol/L (3.5-5.1); Sodium 136 mmol/L (137-145)
[2017-10-25] MEDS: LABETALOL 5 MG/ML VIAL MDV IVP PRN ×4 (05:27→23:05)
[2017-10-25] MEDS: ACETAMINOPHEN TAB 325 MG TAB PO PRN (05:28)
[2017-10-25] MEDS: LEVOTHYROXINE IVP 100 MCG/5 ML VIAL IV SCH (05:30)
[2017-10-25 06:10] LABS: Glucose,Whole Blood 194 mg/dL (75-99)
[2017-10-25 06:24] LABS: Basophils # (A) 0.1 k/uL (0-0.2); Basophils % (A) 1 %; Eosinophils # (A) 0.3 k/uL (0-0.7); Eosinophils % (A) 3 %; HCT 29.1 % (39.0-53.0); HGB 10.1 gm/dL (13.0-17.5); Hypochromasia Slight; Lymphocytes % (A) 9 %; MCH 30.9 pg (25.0-35.0); MCHC 34.6 g/dL (31.0-37.0); MCV 89.5 fL (80.0-100.0); Mean Platelet Volume 9.1; Monocytes # (A) 0.6 k/uL (0-1.0); Monocytes % (A) 5 %; Neutrophils # (A) 8.7 k/uL (1.3-7.7); Neutrophils % (A) 81 %; Platelet Count 501 k/uL (150-450); RBC 3.25 m/uL (4.30-5.90); WBC 10.8 k/uL (3.8-10.6)
[2017-10-25] MEDS: MAGNESIUM SULFATE-D5W PMX 1 GM in DEXTROSE/WATER 1 100ML.BAG IVPB SCH ×2 (06:43→08:46)
[2017-10-25] MEDS: MORPHINE SULFATE 4 MG/ML SYRINGE IVP PRN ×3 (06:46→23:20)
--- NOTE | 2017-10-25 07:28 | XR ---
EXAMINATION TYPE: XR chest 1V portable DATE OF EXAM: 10/25/2017 HISTORY: Shortness of breath. COMPARISON: 10/24/2017 TECHNIQUE: Single view of the chest is submitted. FINDINGS: Demonstrated are scattered senescent parenchymal change. Perihilar and basilar infiltrates as well as small left-sided pleural effusion all appear unchanged. Right-sided PICC line and tracheostomy tube in place. The heart is stable. Hilar and mediastinal structures are within normal limits. Degenerative changes are seen of the dorsal spine. IMPRESSION: 1. Perihilar and basilar infiltrates as well as small left-sided pleural effusion all appear unchang ed.
--- NOTE | 2017-10-25 07:39 | P.PN ---
Subjective Progress Note Date: 10/25/17 Principal diagnosis: Sepsis and left foot infection with mental status changes Progress note dated 10/19/2017 This is a 52-year-old male with acute hypoxemic respiratory failure secondary to sepsis. He was admitted with a diagnosis of Septic Arthritis Involving the Left Ankle and He Status Post Left Ankle Irrigation and Debridement. He's Postop Day #7. He Wanted Month for Another Irrigation and Debridement, on 10/16 and Is Postop Day #3. Today We Did a Daily Eruption of Sedation. Unfortunately He Did Very Poorly. He Was Not Ready for a Spontaneous Breathing Trial. The patient has a history of acute severe sepsis with positive blood cultures for methicillin sensitive staph aureus, altered mental status acute hypoxemic and hypercapnic respiratory failure with mild ARDS, diabetes mellitus peripheral neuropathy chronic wounds and ulcerations of lower extremities Charcot joints of morbid obesity hypertension hyperlipidemia hypothyroidism acute kidney injury and hypernatremia. I had a long talk with the family today. The understand that by mid next week if the patient does not show improvement, would likely send patient for a tracheostomy and PEG tube. Progress note dated 10/20/2017 A 52-year-old male with a history of acute hypoxemic respiratory failure secondary to sepsis. The patient was admitted with a diagnosis of septic arthritis involving the left ankle and he is status post left ankle irrigation and debridement, postop day #8. He also had an irrigation and debridement a second time and for that when he is postop day #4. The patient had a daily eruption of sedation yesterday and unfortunately did very poorly and again today he had daily eruption of sedation and again did very poorly. His respiratory rate was quite high. Heart rate was very high. The patient went very high. He was not responsive. The patient does not follow simple commands. He may eventually need a tracheostomy and PEG tube placement. I did have a long discussion with his yesterday. In addition, the patient is positive blood culture for methicillin sensitive staph aureus mental status changes acute hypoxemic and hypercapnic respiratory failure mild ARDS based on a PaO2/FiO2 ratio, diabetes peripheral neuropathy chronic wounds and ulcerations of lower extremities Charcot joints morbid obesity hypertension hyperlipidemia hypothyroidism acute kidney injury and hypernatremia. I did mention tracheostomy and PEG tube yesterday with the . Again, the patient has shown no significant improvement over the last 48 hours. Chest x-ray is unchanged. Microbiology is reviewed. White count 17.5, hemoglobin 10.4 platelet count normal. Arterial blood gases show a PaO2 of 74 a PaCO2 of 38 and pH is 7.44. Sodium is 139 potassium 3.8 chloride is 105 CO2 23 BUN and creatinine 24 and 0.78 respectively. The patient's vent settings are the volume assist control mode, rate of 26, tidal volume 500, FiO2 50% and PEEP of 8. The patient's currently on propofol at 50 mics per kilogram per minute, Cleviprex at 21 mg per hour and a D5W IV at KVO. The patient is receiving vital high protein at 20 with a goal of 20. Progress note dated 10/21/2017 52-year-old male with a history of acute hypoxemic respiratory failure secondary to sepsis. The patient was admitted with a diagnosis of septic arthritis involving the left ankle many status post left ankle irrigation and debridement, postop day #9. He also had a second irrigation and he is postop day #5 on that one. Unfortunately, over the weekend, the patient has made no progress in yesterday because of worsening respiratory status, the patient had to be paralyzed. He was given Nimbex 10 mg IV and started on a Nimbex drip. We 'll do [id number] monitoring. Also, yesterday we had issues with his heart rate and blood pressure. We had added some labetalol to his Cleviprex. Finally , the patient's oxygenation worsened suggesting is acute respiratory distress syndrome has worsened. Currently on 70% FiO2 and 12 of PEEP. I did have a long discussion with the on Saturday. I explained that he probably end up with a tracheostomy and PEG tube placed. I will ask the thoracic surgeon about that today. Blood cultures are positive multiple times for methicillin sensitive staph aureus. The patient does have a history of Charcot joints morbid obesity hypertension hyperlipidemia hypothyroidism acute kidney injury and hypernatremia. Currently, the patient's vent settings are the assist control mode rate of 26 tidal volume 500 FiO2 70% PEEP of 12 blood gases show a PaO2 of 69 and a PaCO2 of 53 and a pH 7.32. The patient is on Nimbex at 3 mics per kilogram per minute, propofol 60 mikes per kilogram per minute, Cleviprex at 14 mg an hour, insulin 16 units an hour saline IV at 20 mL an hour and vital high protein and rate of 20 with a goal of 20 mL per hour. Needless to say, the patient's very critically ill. Progress note dated 10/22/2017 52-year-old male with a history of acute hypoxemic respiratory failure secondary to sepsis. The patient was admitted initially admitted with a diagnosis of septic arthritis involving the left ankle and he status post left ankle irrigation and debridement, postop day #10 he had a second procedure done and on that procedure he is postop day #6. The patient has made no progress on the ventilator. I did ask the thoracic surgeon to see him for a tracheostomy and PEG tube placement. She oxygenation and dyssynchronous with the ventilator , the patient was paralyzed. We've also some additional blood pressure control. His blood pressure has been high despite maximal doses of Cleviprex and labetalol IV. Anyway, the patient is scheduled for a tracheostomy and PEG tube on Saturday. This been no changes in his status since that time. The patient has a history of multiple positive blood cultures for methicillin sensitive staph aureus. He does have a history of Charcot joints, morbid obesity, hypertension, hyperlipidemia, hypothyroidism, acute kidney injury, and hypernatremia. Currently, the patient's on the volume assist control modality, rate is 26 tidal volume is 500 FiO2 70% PEEP of 12. Arterial blood gases show a PaO2 of 139 a PaCO2 40 and a pH of 7.36. If the FiO2 we dropped down to 55%. The patient receiving a saline IV at 20 mL an hour propofol 60 mikes per kilogram per minute insulin drip at 13 units per hour Nimbex at 4 mics per kilogram per minute vital high protein at 20 with a goal of 20 mL an hour and the Cleviprex is off. Sodium is 141 potassium 4.4 chloride 105 CO2 27 and BUN and creatinine is 27 0.79. CBC is pending Chest x-ray shows diffuse infiltrates with possible small effusions. Endotracheal tube in good position. Progress note dated 10/23/2017 52-year-old male with a history of acute hypoxemic respiratory failure sepsis and acute respiratory distress syndrome. The patient was initially admitted with a diagnosis of septic arthritis involving the left ankle and he status post left ankle irrigation and debridement, postop day #11. In addition, he had a second irrigation/debridement and he is postop day #7 on that procedure. The patient has made no progress in regards to weaning and extubation. The patient has been dyssynchronous on the ventilator and required heavy sedation and paralysis. He is going to have a tracheostomy and PEG tube placement today. I've had ongoing discussions with his . Also, we had issues with blood pressure control is required both Cleviprex and IV labetalol for that. He does have positive blood cultures for methicillin sensitive staph aureus. Being treated for that. He has a history of Charcot joints morbid obesity hypertension hyperlipidemia hypothyroidism acute kidney injury and hypernatremia. The patient's currently on the ventilator with the same settings. He is receiving a saline IV at 20 mL an hour propofol 70 mics per kilogram per minute and Nimbex at 4 mics per kilogram per minute. His arterial blood gases show a PaO2 of 97 a PaO2 of 47 and a pH of 7.38. The patient's chest x-ray shows worsening bilateral infiltrates. Labs x-rays a medications are all reviewed. Progress note dated 10/24/2017 52-year-old male with a history of acute hypoxemic respiratory failure sepsis and acute respiratory distress syndrome. By PF ratio, the patient has moderate ARDS. The patient was initially admitted with a diagnosis of septic arthritis involving the left ankle and he status post left ankle irrigation and debridement postop day #12 and a second procedure done similarly, postop day # 8. The patient is postop day #1 status post tracheostomy and PEG tube placement. He is currently off paralysis. Tube feeds can resume at 3:00 today. The patient has a history of methicillin sensitive staph aureus sepsis. In addition, the patient has Charcot joints morbid obesity hypertension hyperlipidemia hypothyroidism acute kidney injury and hypernatremia. Currently , he's on the volume assist control mode rate of 26, tidal volume 500, FiO2 55% to be dropped to 40% and PEEP of 12. Blood gases show a PaO2 of 1:30 a PaCO2 of 48 and a pH of 7.4. The patient is on saline IV at KVO, propofol 70 mics per kilogram per minute insulin drip at 6 units an hour and tube feeds are on hold but will resume at 3:00 today. Again tracheostomy and PEG tube placement on October 23. The plan today will be to slowly wean the propofol. We'll see for can start moving the patient reports liberation from mechanical ventilation. We will drop the FiO2 down to 40%. If his oxygen remained stable, start making drops in PEEP. Progress note dated 10/25/2017 52-year-old male with a history of acute hypoxemic respiratory failure, sepsis, and acute respiratory distress syndrome. The patient down has developed ARDS. He is postop day #13 status post initial debridement and irrigation of left ankle septic arthritis. His second procedure done, postop day #9. He is postop day #2 status post tracheostomy and PEG tube placement. The patient's currently on the ventilator on the volume assist control mode rate of 26 tidal volume 500 FiO2 to be dropped from 50-40% PEEP of 12. Arterial blood gases on the same settings but 50%, show a PaO2 of 132 a PaCO2 47 and a pH of 7.41. The patient's medications include propofol at 30 mics per kilogram per minute, insulin at 6 units per hour, vital high protein at 30 with a goal of 44 and a saline IV at 20. Because of the patient's poor mental status, the patient will have a CT of the brain without contrast and EEG. In addition, the chest x-ray shows bilateral infiltrates consistent with the diagnosis of acute respiratory distress syndrome. The patient's propofol has been weaned down from 70 to 30 mics per kilogram per minute. The patient's overall prognosis is very guarded. Daily conversations with his have been done to let her know about this. She seems understand. I'm hoping that down the patient will show some improvement since having the tracheostomy and PEG tube was done. Objective - Vital Signs Vital signs: Vital Signs Temp 100.3 F H 10/25/17 04:00 Pulse 83 10/25/17 07:12 Resp 26 H 10/25/17 07:00 BP 158/73 10/25/17 07:00 Pulse Ox 97 10/25/17 07:00 Intake & Output 10/24/17 10/25/17 10/25/17 18:59 06:59 18:59 Intake Total 073.408 4236.253 Output Total 1480 1295 Balance -607.870 -272.747 Weight 158.1 kg 156.6 kg Intake: IV 320 260 0.9 NS 220 260 Magnesium Sulfate-D5w Pmx 100 1 gm In Dextrose/Water 1 100ml.bag @ 100 mls/hr IVPB Q1H [facility] Rx#: [id number] Intake, IV Titration 552.130 442.253 Amount Insulin Regular 100 unit 58.980 63.020 In Sodium Chloride 0.9% 100 ml @ Per Protocol IV .Q0M [facility] Rx#:[id number] Propofol 1,000 mg In 493.15 379.233 Empty Bag 1 bag @ Per Protocol IV .Q0M [facility] Rx#: [id number] Tube Feeding 260 Other 60 Output: Urine 1480 1295 Other: Voiding Method Indwelling Catheter Indwelling Catheter # Bowel Movements 0 ABP, PAP, CO, CI - Last Documented Arterial Blood Pressure 137/80 - Exam No acute distress, sedated , with a midline tracheostomy tube and a PEG tube HEENT examination is grossly unremarkable. Mucous membranes are moist. Neck supple. Full range of motion. No adenopathy thyromegaly or neck vein distention. Cardiovascular examination reveals regular rhythm rate. S1-S2 normal. No S3 or S4. No discernible murmur noted. Lungs reveal diminished breath sounds. Coarse bilateral rhonchi are noted. Breath sounds are equal bilaterally. No crackles. Abdomen soft bowel sounds are heard. No masses or tenderness. PEG tube noted. Extremities are intact. Both lower extremities are wrapped in Geoffrey wraps. Also examination cannot be done. Edema is clearly present though.. Skin is without rash or lesion. Neurologic examination could not be performed - Labs CBC & Chem 7: 10/25/17 04:40 10/25/17 04:40 Labs: Abnormal Lab Results - Last 24 Hours (Table) 10/24/17 10/24/17 10/24/17 Range/Units 05:01 08:12 09:15 WBC 13.8 H (3.8-10.6) k/uL RBC 3.32 L (4.30-5.90) m/uL Hgb 9.5 L (13.0-17.5) gm/dL Hct 29.4 L (39.0-53.0) % Plt Count 495 H (150-450) k/uL Neutrophils # (1.3-7.7) k/uL ABG pCO2 (35-45) mmHg ABG pO2 (83-108) mmHg ABG HCO3 (21-25) mmol/L ABG Total CO2 (19-24) mmol/L ABG O2 Saturation (94-97) % Sodium (137-145) mmol/L BUN (9-20) mg/dL Creatinine (0.66-1.25) mg/dL Glucose (74-99) mg/dL POC Glucose (mg/dL) 166 H 171 H (75-99) mg/dL 10/24/17 10/24/17 10/24/17 Range/Units 10:05 11:00 11:55 WBC (3.8-10.6) k/uL RBC (4.30-5.90) m/uL Hgb (13.0-17.5) gm/dL Hct (39.0-53.0) % Plt Count (150-450) k/uL Neutrophils # (1.3-7.7) k/uL ABG pCO2 (35-45) mmHg ABG pO2 (83-108) mmHg ABG HCO3 (21-25) mmol/L ABG Total CO2 (19-24) mmol/L ABG O2 Saturation (94-97) % Sodium (137-145) mmol/L BUN (9-20) mg/dL Creatinine (0.66-1.25) mg/dL Glucose (74-99) mg/dL POC Glucose (mg/dL) 162 H 145 H 151 H (75-99) mg/dL 10/24/17 10/24/17 10/24/17 Range/Units 13:00 13:53 15:48 WBC (3.8-10.6) k/uL RBC (4.30-5.90) m/uL Hgb (13.0-17.5) gm/dL Hct (39.0-53.0) % Plt Count (150-450) k/uL Neutrophils # (1.3-7.7) k/uL ABG pCO2 (35-45) mmHg ABG pO2 (83-108) mmHg ABG HCO3 (21-25) mmol/L ABG Total CO2 (19-24) mmol/L ABG O2 Saturation (94-97) % Sodium (137-145) mmol/L BUN (9-20) mg/dL Creatinine (0.66-1.25) mg/dL Glucose (74-99) mg/dL POC Glucose (mg/dL) 154 H 144 H 128 H (75-99) mg/dL 10/24/17 10/24/17 10/24/17 Range/Units 17:00 17:52 19:53 WBC (3.8-10.6) k/uL RBC (4.30-5.90) m/uL Hgb (13.0-17.5) gm/dL Hct (39.0-53.0) % Plt Count (150-450) k/uL Neutrophils # (1.3-7.7) k/uL ABG pCO2 (35-45) mmHg ABG pO2 (83-108) mmHg ABG HCO3 (21-25) mmol/L ABG Total CO2 (19-24) mmol/L ABG O2 Saturation (94-97) % Sodium (137-145) mmol/L BUN (9-20) mg/dL Creatinine (0.66-1.25) mg/dL Glucose (74-99) mg/dL POC Glucose (mg/dL) 124 H 142 H 157 H (75-99) mg/dL 10/24/17 10/25/17 10/25/17 Range/Units 22:00 00:03 01:53 WBC (3.8-10.6) k/uL RBC (4.30-5.90) m/uL Hgb (13.0-17.5) gm/dL Hct (39.0-53.0) % Plt Count (150-450) k/uL Neutrophils # (1.3-7.7) k/uL ABG pCO2 (35-45) mmHg ABG pO2 (83-108) mmHg ABG HCO3 (21-25) mmol/L ABG Total CO2 (19-24) mmol/L ABG O2 Saturation (94-97) % Sodium (137-145) mmol/L BUN (9-20) mg/dL Creatinine (0.66-1.25) mg/dL Glucose (74-99) mg/dL POC Glucose (mg/dL) 162 H 147 H 168 H (75-99) mg/dL 10/25/17 10/25/17 10/25/17 Range/Units 04:20 04:30 04:40 WBC (3.8-10.6) k/uL RBC (4.30-5.90) m/uL Hgb (13.0-17.5) gm/dL Hct (39.0-53.0) % Plt Count (150-450) k/uL Neutrophils # (1.3-7.7) k/uL ABG pCO2 48 H (35-45) mmHg ABG pO2 132 H (83-108) mmHg ABG HCO3 30 H (21-25) mmol/L ABG Total CO2 32 H (19-24) mmol/L ABG O2 Saturation 99.1 H (94-97) % Sodium 136 L (137-145) mmol/L BUN 23 H (9-20) mg/dL Creatinine 0.60 L (0.66-1.25) mg/dL Glucose 155 H (74-99) mg/dL POC Glucose (mg/dL) 184 H (75-99) mg/dL 18 10/25/17 Range/Units 04:40 06:08 WBC 10.8 H (3.8-10.6) k/uL RBC 3.25 L (4.30-5.90) m/uL Hgb 10.1 L (13.0-17.5) gm/dL Hct 29.1 L (39.0-53.0) % Plt Count 501 H (150-450) k/uL Neutrophils # 8.7 H (1.3-7.7) k/uL ABG pCO2 (35-45) mmHg ABG pO2 (83-108) mmHg ABG HCO3 (21-25) mmol/L ABG Total CO2 (19-24) mmol/L ABG O2 Saturation (94-97) % Sodium (137-145) mmol/L BUN (9-20) mg/dL Creatinine (0.66-1.25) mg/dL Glucose (74-99) mg/dL POC Glucose (mg/dL) 194 H (75-99) mg/dL Assessment and Plan Assessment: Assessment Acute septic arthritis of the left ankle, status post left ankle irrigation with debridement, postoperative day #13 and subsequent irrigation did the debridement, postop day #9 Postop day #2, status post tracheostomy and PEG tube placement. Acute hypoxemic respiratory failure requiring intubation and mechanical ventilation with failure to wean from mechanical ventilation despite daily interruption of sedation and spontaneous breathing trial Failure to wean from mechanical ventilation, with anticipated tracheostomy tomorrow Acute severe sepsis with positive blood cultures for methicillin sensitive Staphylococcus Mental status changes, set secondary to sepsis encephalopathy Moderate ARDS with a PF ratio of 176 Diabetes mellitus with poor sugar control Severe peripheral neuropathy History of chronic wounds and ulcerations of the lower extremities with cellulitis Charcot joints Morbid obesity Hypertension Hyperlipidemia Hypothyroidism Acute kidney injury Hypernatremia Plan: Plan dated 10/19/2017 The patient did have a daily eruption of sedation and a spontaneous breathing trial. His mental status was poor. His heart rate went up quite high with increased respiratory rate and blood pressure. The patient's mental status was poor as I mention that he was not ready for extubation. I did have a long talk with the family. They do understand that the patient may end up requiring a tracheostomy and PEG tube. He'll continue on antibiotics. No additional recommendations are made. Prognosis is poor. We will use Cleviprex for blood pressure control. We will discontinue all the other medications that were being used for blood pressure. She can titrate off of Plavix better. We sedate the patient. We will use a small amount of narcotic. Additional sedation. We'll place the patient back on the mechanical ventilator. We'll resume nutrition. Additional recommendations and suggestions are forthcoming. Plan dated 10/20/2017 Again the patient had a daily eruption of sedation and did very poorly. He was not a candidate for spontaneous breathing trial. He remains on Cleviprex at a relatively higher dose for blood pressure control and propofol. The patient is getting nutrition. I did talk to the yesterday. I let her know that the patient was not doing well and may be headed towards tracheostomy and PEG tube placement. He remains on updrafts every 4 [id number]. Not able to be weaned today. The patient blood pressure 1 of over 200 and his respiratory rate went up over 40 on holding of sedation. Chest x-ray stable. No additional recommendations are made. Prognosis is guarded. And he may end up with a trach and PEG. Critical care time 33 minutes Plan dated 10/21/2017 The patient did miserably over the weekend. Showed no progress with his daily interruption of sedation. The patient had to be paralyzed her. In addition, the patient needed additional blood pressure medication for blood pressure control. We will consult the thoracic surgeon for PEG and tracheostomy tube. Overall prognosis is poor he continues on all appropriate medications. Superflous and unnecessary medications are discontinued. The patient will continue on Nimbex propofol Cleviprex insulin and nutrition Critical care time 37 minutes Plan dated 10/22/2017 The patient continues to do poorly. By P/F criteria, he does have ARDS. The patient's FiO2 though, could be dropped to 55% today. He remains on PEEP of 12. The patient will likely have a tracheostomy and PEG tube done tomorrow. I did speak to the yesterday. She understands prognosis. The patient remained on number different medications including propofol insulin Nimbex. Cleviprex his been weaned off. He's continuing to receive nutrition. Labs and x-rays are reviewed. Again prognosis is very poor. Critical care time 38 minutes Plan dated 10/23/2017 The patient continues to do poorly. The patient will have a tracheostomy PEG tube placed today. We'll keep on the same that settings for now. We will make any FiO2 of PEEP changes at this time. The patient is getting a result of 2 feeds are on hold for the procedure. The patient is receiving saline at 20 mL an hour. The patient's on propofol 70 mics per kilogram per minute and Nimbex at 4 mics per kilogram per minute with [id number] monitoring. His overall prognosis remains poor. The patient has not made any substantial improvement. Chest x-ray today is a bit worse. Additional recommendations and suggestions are forthcoming. Critical care time is 35 minutes Plan dated 10/24/2017 The patient is postop day #1 status post tracheostomy and PEG tube placement. The FiO2 was dropped from 55-40%. We'll start weaning the PEEP. The patient is currently off paralysis. We'll start weaning the propofol down. Additional recommendations and suggestions are forthcoming. Chest x-ray is stable. In fact, patient was somewhat improved aeration. We'll continue to monitor closely. Prognosis is guarded. I have been honest with the patient's family all along. After discussions with the and brother. Critical care time 38 minutes. Plan dated 10/25/2017 The patient is postop day #2 status post tracheostomy and PEG tube placement. The propofol has been weaned down to 30 mics per kilogram per minute. The patient's chest x-ray showed bilateral infiltrates. The patient's mental status is poor. We'll go ahead and evaluate him with a computed tomography scan of the brain without contrast and EEG. We may ask neurology to see the patient. This may be nothing more than anoxic/metabolic encephalopathy. Prognosis is guarded. The patient remains on a number drips including propofol insulin and saline. The patient's also on tube feeds with vital high protein at 30 mL with a goal of 44 mL/h. The FiO2 was dropped down to 40%. I'll make sure that any vent changes are only done by the critical care physician. Critical care time 37 minutes Time with Patient: Greater than 30
[2017-10-25] MEDS: CHLORHEXIDINE GLUCONATE 15 ML CUP MUCOUS MEM SCH ×2 (08:46→20:44)
[2017-10-25 08:47] LABS: Glucose,Whole Blood 174 mg/dL (75-99)
[2017-10-25] MEDS: FUROSEMIDE 10 MG/ML 2 ML VIAL IV SCH (08:47)
[2017-10-25] MEDS: PANTOPRAZOLE 40 MG/10 ML VIAL IV SCH (08:47)
[2017-10-25] MEDS: INSULIN REGULAR 100 UNIT in SODIUM CHLORIDE 0.9% 100 ML IV SCH (08:48)
[2017-10-25] MEDS: CLEVIDIPINE BUTYRATE 25 MG in EMPTY BAG 1 BAG IV SCH (09:55)
--- NOTE | 2017-10-25 11:27 | CT ---
EXAMINATION TYPE: CT brain wo con DATE OF EXAM: 10/25/2017 COMPARISON: NONE HISTORY: Delayed awakening from anesthesia CT DLP: 1081.[address] of the brain was performed. The ventricles, basal cisterns and sulci overlying the cerebral convexities demonstrate mild enlargem ent. There is no evidence for intracranial hemorrhage or sulcal effacement. There is decreased attenuation about the periventricular white matter and deep white matter of both c erebral hemispheres, compatible with chronic small vessel ischemia. Differential diagnosis does inclu de demyelination. No mass effects are seen.No midline shift. Osseous calvarium is intact. If symptoms persist consider MRI. IMPRESSION: 1. Age related atrophic and chronic small vessel ischemic change without acute intracranial process s een at this time.
[2017-10-25] MEDS: SENNOSIDES-DOCUSATE SODIUM 1 EACH TAB PO SCH ×2 (11:43→20:44)
[2017-10-25 12:10] LABS: Glucose,Whole Blood 168 mg/dL (75-99)
[2017-10-25 14:37] LABS: Glucose,Whole Blood 148 mg/dL (75-99)
[2017-10-25 17:56] LABS: Glucose,Whole Blood 163 mg/dL (75-99)
[2017-10-25] MEDS: INSULIN ASPART 100 UNIT/ML 1 ML 10 ML VIAL SQ SCH ×2 (18:41→23:48)
--- NOTE | 2017-10-25 18:43 | P.PN ---
Subjective 52-year-old admitted to ICU secondary to sepsis leading to acute respiratory distress syndrome patient remains intubated on ventilator is being managed by nursery manager patient underwent irrigation and the bride meant of the left ankle twice during this hospitalization. Patient has MSSA in the joint and patient is presently on ceftezole and for that reason. Patient is intubated sedated and patient is on Precedex with anticipation of extubation tomorrow. 10/20/2017 Patient remains intubated patient is on high-dose of IV insulin and requiring large amounts of sedation remains in hypoxic respiratory failure had a low- grade fever today if he continues to have low-grade fevers or has a high-grade fever repeat blood cultures will be obtained 10/21/2017 Patient maintains intubated, still remains on 70% FiO2 and nursery manager his considering tracheostomy and PEG tube placement. Patient had low-grade fevers yesterday. Patient is on paralytic agents now with fairly well-controlled blood pressure, clevidipine was discontinued 10/22/2017 Patient's FiO2 has come down to 50% today no other significant changes were made to vent. 10/23/2017 Patient is going for a tracheostomy and PEG tube placement patient remains an FiO2 of 55% plan is to this can you paralytics after tracheostomy. 10/24/2017 Patient had a tracheostomy and PEG tube placement remains on 40% FiO2 and PEEP of 12 didn't have a bowel movement for a few days we'll try lactulose and senna through PEG tube. No significant change in his overall clinical condition plan is to wean off propofol 10/25/2017 Patient is being transitioned to subcutaneous insulin patient is waking up slowly taking a while because the patient was on sedation for long period of time patient vent settings seem to be better with PEEP of 8 now FiO2 of 40%. Objective - Vital Signs Vital signs: Vital Signs Temp 100.4 F H 10/25/17 16:00 Pulse 94 10/25/17 16:16 Resp 17 10/25/17 16:00 BP 181/77 10/25/17 16:00 Pulse Ox 98 10/25/17 16:00 Intake & Output 10/24/17 10/25/17 10/25/17 18:59 06:59 18:59 Intake Total 610.781 1941.253 648.791 Output Total 1480 1295 1575 Balance -607.870 -272.747 -926.209 Weight 158.1 kg 156.6 kg 156.6 kg Intake: IV 320 260 160 0.9 NS 220 260 60 Magnesium Sulfate-D5w Pmx 100 100 1 gm In Dextrose/Water 1 100ml.bag @ 100 mls/hr IVPB Q1H [facility] Rx#: [id number] Intake, IV Titration 552.130 442.253 338.791 Amount Insulin Regular 100 unit 58.980 63.020 3.808 In Sodium Chloride 0.9% 100 ml @ Per Protocol IV .Q0M [facility] Rx#:[id number] Magnesium Sulfate-D5w Pmx 200 1 gm In Dextrose/Water 1 100ml.bag @ 100 mls/hr IVPB Q1H [facility] Rx#: [id number] Propofol 1,000 mg In 493.15 379.233 134.983 Empty Bag 1 bag @ Per Protocol IV .Q0M [facility] Rx#: [id number] Tube Feeding 260 150 Other 60 Output: Urine 1480 1295 1575 Other: Voiding Method Indwelling Catheter Indwelling Catheter Indwelling Catheter # Bowel Movements 0 ABP, PAP, CO, CI - Last Documented Arterial Blood Pressure 137/80 - Exam PHYSICAL EXAMINATION: GENERAL: Patient has tracheostomy now, morbidly obese PEG tube with continuous supplementation, arousable with verbal stim HEENT: Pupils are round and equally reacting to light. EOMI. No scleral icterus. No conjunctival pallor. Normocephalic, atraumatic. No pharyngeal erythema. No thyromegaly. CARDIOVASCULAR: S1 and S2 present. No murmurs, rubs, or gallops. PULMONARY: Chest is clear to auscultation, no wheezing or crackles. ABDOMEN: Soft, nontender, nondistended, normoactive bowel sounds. No palpable organomegaly. MUSCULOSKELETAL: Patient left leg is wrapped in Geoffrey bandages EXTREMITIES: No cyanosis, clubbing, or pedal edema. NEUROLOGICAL: Unable to assess due to the above-mentioned reasons SKIN: No rashes. - Labs CBC & Chem 7: 10/25/17 04:40 10/25/17 04:40 Labs: Abnormal Lab Results - Last 24 Hours (Table) 10/24/17 10/24/17 10/25/17 Range/Units 19:53 22:00 00:03 WBC (3.8-10.6) k/uL RBC (4.30-5.90) m/uL Hgb (13.0-17.5) gm/dL Hct (39.0-53.0) % Plt Count (150-450) k/uL Neutrophils # (1.3-7.7) k/uL ABG pCO2 (35-45) mmHg ABG pO2 (83-108) mmHg ABG HCO3 (21-25) mmol/L ABG Total CO2 (19-24) mmol/L ABG O2 Saturation (94-97) % Sodium (137-145) mmol/L BUN (9-20) mg/dL Creatinine (0.66-1.25) mg/dL Glucose (74-99) mg/dL POC Glucose (mg/dL) 157 H 162 H 147 H (75-99) mg/dL 10/25/17 10/25/17 10/25/17 Range/Units 01:53 04:20 04:30 WBC (3.8-10.6) k/uL RBC (4.30-5.90) m/uL Hgb (13.0-17.5) gm/dL Hct (39.0-53.0) % Plt Count (150-450) k/uL Neutrophils # (1.3-7.7) k/uL ABG pCO2 48 H (35-45) mmHg ABG pO2 132 H (83-108) mmHg ABG HCO3 30 H (21-25) mmol/L ABG Total CO2 32 H (19-24) mmol/L ABG O2 Saturation 99.1 H (94-97) % Sodium (137-145) mmol/L BUN (9-20) mg/dL Creatinine (0.66-1.25) mg/dL Glucose (74-99) mg/dL POC Glucose (mg/dL) 168 H 184 H (75-99) mg/dL 10/25/17 10/25/17 10/25/17 Range/Units 04:40 04:40 06:08 WBC 10.8 H (3.8-10.6) k/uL RBC 3.25 L (4.30-5.90) m/uL Hgb 10.1 L (13.0-17.5) gm/dL Hct 29.1 L (39.0-53.0) % Plt Count 501 H (150-450) k/uL Neutrophils # 8.7 H (1.3-7.7) k/uL ABG pCO2 (35-45) mmHg ABG pO2 (83-108) mmHg ABG HCO3 (21-25) mmol/L ABG Total CO2 (19-24) mmol/L ABG O2 Saturation (94-97) % Sodium 136 L (137-145) mmol/L BUN 23 H (9-20) mg/dL Creatinine 0.60 L (0.66-1.25) mg/dL Glucose 155 H (74-99) mg/dL POC Glucose (mg/dL) 194 H (75-99) mg/dL 10/25/17 10/25/17 10/25/17 Range/Units 08:45 12:08 14:34 WBC (3.8-10.6) k/uL RBC (4.30-5.90) m/uL Hgb (13.0-17.5) gm/dL Hct (39.0-53.0) % Plt Count (150-450) k/uL Neutrophils # (1.3-7.7) k/uL ABG pCO2 (35-45) mmHg ABG pO2 (83-108) mmHg ABG HCO3 (21-25) mmol/L ABG Total CO2 (19-24) mmol/L ABG O2 Saturation (94-97) % Sodium (137-145) mmol/L BUN (9-20) mg/dL Creatinine (0.66-1.25) mg/dL Glucose (74-99) mg/dL POC Glucose (mg/dL) 174 H 168 H 148 H (75-99) mg/dL 10/25/17 Range/Units 17:54 WBC (3.8-10.6) k/uL RBC (4.30-5.90) m/uL Hgb (13.0-17.5) gm/dL Hct (39.0-53.0) % Plt Count (150-450) k/uL Neutrophils # (1.3-7.7) k/uL ABG pCO2 (35-45) mmHg ABG pO2 (83-108) mmHg ABG HCO3 (21-25) mmol/L ABG Total CO2 (19-24) mmol/L ABG O2 Saturation (94-97) % Sodium (137-145) mmol/L BUN (9-20) mg/dL Creatinine (0.66-1.25) mg/dL Glucose (74-99) mg/dL POC Glucose (mg/dL) 163 H (75-99) mg/dL Assessment and Plan Plan: Acute septic arthritis of the left ankle, status post left ankle irrigation with debridement, twice during this hospitalization and patient has MSSA and patient is on ceftezolin. Acute hypoxemic respiratory failure requiring intubation and mechanical ventilation with failure to wean from mechanical ventilation, possibility of ARDS patient is on prolonged mechanical ventilation patient did a tracheostomy and PEG tube in place. Acute severe sepsis with positive blood cultures for methicillin sensitive Staphylococcus Mental status changes, set secondary to sepsis encephalopath Diabetes mellitus: Patient is being transitioned to subcutaneous insulin patient is on around 300 units of insulin total at home. Severe peripheral neuropathy History of chronic wounds and ulcerations of the lower extremities with cellulitis Charcot joints Morbid obesity Hypertension Hyperlipidemia Hypothyroidism Acute kidney injury Constipation: Management as mentioned above
[2017-10-25 19:20] LABS: Glucose,Whole Blood 186 mg/dL (75-99)
--- NOTE | 2017-10-25 20:35 | EEG ---
ELECTROENCEPHALOGRAM REPORT REFERRING PHYSICIAN: Dr. Schumacher. CONSULTING AND INTERPRETING PHYSICIAN: Dr. Suraj Nava. INDICATION FOR EXAMINATION: This patient is a 52-year-old male who was treated for acute sepsis. The patient underwent tracheostomy and PEG tube placement 2 days ago and remains obtunded. AGE: 52. EEG FINDINGS: A routine 21 channel awake digital EEG recording was accomplished utilizing the 10-20 international system with bipolar and referential montages. The background activity in the most alert resting state consists of a low to medium amplitude, poorly developed and poorly sustained 5-6 Hz activity over the posterior head regions. This posterior rhythm attenuates minimally to eye opening. There is a small amount of low amplitude 18-20 Hz beta activity seen maximally over the anterior head regions. Muscle and movement artifact was observed on a few occasions during the tracing. Hyperventilation was not performed. Photic stimulation at flash frequencies of 2-30 Hz produced a minimal occipital driving response. No epileptiform discharges were seen. IMPRESSION: This EEG gives evidence of a severe widespread diffuse disturbance in cerebral function. The EEG failed to reveal any focal, lateralized or epileptiform abnormalities. If clinically indicated, a followup EEG is recommended. Clinical correlation is recommended. MMODL / IJN: [id number] /
[2017-10-25] MEDS: LACTATED RINGERS 1,000 ML IV SCH (20:43)
[2017-10-25] MEDS: INSULIN DETEMIR 100 UNIT/ML 10 ML VIAL SQ SCH (20:44)
[2017-10-25 21:10] LABS: Glucose,Whole Blood 181 mg/dL (75-99)
--- NOTE | 2017-10-25 23:24 | P.PN ---
Subjective Progress Note Date: 10/25/17 Principal diagnosis: Sepsis 52-year-old male has a long-standing history of diabetes mellitus type 2 poorly controlled and history of a prior diabetic foot ulceration to the right foot which resulted in a great toe amputation. The patient is been having some difficulties with his left ankle and following with the orthopedic surgeon. Because of some discomfort at the joint he was measured and given a new bracing device for the foot and ankle. However grommet on the dorsum of the foot resulted in a bit of an ulcer and he was concerned and sought care in the office. The patient had difficulty making the appointment because of the weather and has significant distance from work to the office and reschedule. When he came to the office earlier this week the ulceration had healed and he was feeling better but was still having some swelling to the ankle area. He had no fever or chills at the time of presentation to the office, but did have the swelling to the ankle area for which she had a specialty boot that have been designed that he was not wearing that day. He however presents to the emergency center because of the sudden onset of inability to bear weight to the ankle because of the amount of pain that he started to have. Shortly thereafter he became febrile and has had a rapid decline in his status with evidence of sepsis and presentation to the intensive care unit. The case is discussed with the jig worker as well as the orthopedic foot and ankle specialist. Given his rapid decline in status he'll go to the operating room this afternoon. The patient is acutely ill with fever chills generalized weakness and malaise and some alteration of his mental status 10/13/2017 patient remains in intensive care unit with ongoing sepsis. Appears to have acute lung injury and also has an elevation of his creatinine likely with an acute renal injury also occurring from his sepsis. Laboratories revealed evidence of staph aureus await final susceptibility. Follow blood cultures in process reasonable cultures are positive. Patient continues to have some ongoing fevers and is admitted of nausea with the response to Zofran. He is still in a warm flushed phase of sepsis and hopefully now that he has been resuscitated will have further improvement of his status. 10/14/2017 patient does have some improvement today. He is not hypotensive not requiring vasopressors but is still on high flow oxygen for his acute lung injury. He has had fevers but down to 99.9 still feels poorly and has significant pain of the left foot and ankle area. 10/15/2017 the patient had deterioration of his respiratory status last night with his acute lung injury and developing early ARDS. He required intubation with sedation and mechanical ventilation. With improved sedation he is quite comfortable today and is synchronous with the vent with adequate oxygenation and improved blood gas. The patient is quite comfortable at this time and receiving tube feeds for his nutritional needs. Fever and leukocytosis are trending down 10/16/2017 is noted the patient remains ventilated as well as with intubation and sedation. He is quite comfortable today. Has been taking back to the operating room for further evaluation of the medial aspect of the right ankle, some infected bone was debrided but no further extensive pockets of purulence were found. Wound VAC applied. 10/17/2017 patient has had a weaning trial today but it was not successful in counseling. Remains intubated sedated and mechanically ventilated. He does to do quite comfortable. Wound vacs are in place after the debridement of yesterday to the left foot. Fever has trended down and he is hemodynamically stable 10/18/2017 the patient had an attempt for a weaning trial but this however did not go well the patient became significantly hypertensive. With multiple medications this is now settled. Today the wound vacs will be changed further care will be given. Is much more calm this afternoon and hopefully further weaning trials will go well over the next few days. The fever has resolved and there is now a negative blood culture. 2017 patient remains in ICU intubated sedated and paralyzed due to the ARDS which is resulting in jail respiratory failure. 10/22/2017 reveals the patient to have a slightly improved ventilatory status he is down to 55% FiO2 and PEEP is at 12. He has been evaluated by Dr. Zepeda for tracheostomy and PEG tube placement in the near future. The patient seems to be quite comfortable and with the current sedation and paralysis. Ventilating well 10/23/2017 patient is post-tracheostomy and PEG tube placement today.the patient is being readied for transition to a ventilator facility. 10/24/2017 patient is comfortable on current level of sedation. Ongoing attempts for reduction of level of sedation and ventilation support her in process. No new wounds. 10/25/2017 patient now with some improvement in that the sedation has been discontinued and has not caused elevated BP or respirations as in the last few days.he has a sedation weaned through the day he opened eyes, tracked the observers and followed commands.he even smiled for the observer. Objective - Vital Signs Vital signs: Vital Signs Temp 99.7 F H 10/25/17 20:00 Pulse 88 10/25/17 23:00 Resp 26 H 10/25/17 22:00 BP 150/68 10/25/17 22:00 Pulse Ox 96 10/25/17 22:00 Intake & Output 10/25/17 10/25/17 10/26/17 06:59 18:59 06:59 Intake Total 1022.253 698.791 220 Output Total 1295 2450 400 Balance -272.747 -1751.209 -180 Weight 156.6 kg 156.6 kg Intake: IV 260 210 80 0.9 NS 260 110 Lactated Ringers 1,000 ml 80 @ 20 mls/hr IV .Q24H [facility] Rx#:[id number] Magnesium Sulfate-D5w Pmx 100 1 gm In Dextrose/Water 1 100ml.bag @ 100 mls/hr IVPB Q1H [facility] Rx#: [id number] Intake, IV Titration 442.253 338.791 Amount Insulin Regular 100 unit 63.020 3.808 In Sodium Chloride 0.9% 100 ml @ Per Protocol IV .Q0M [facility] Rx#:[id number] Magnesium Sulfate-D5w Pmx 200 1 gm In Dextrose/Water 1 100ml.bag @ 100 mls/hr IVPB Q1H [facility] Rx#: [id number] Propofol 1,000 mg In 379.233 134.983 Empty Bag 1 bag @ Per Protocol IV .Q0M [facility] Rx#: [id number] Tube Feeding 260 150 110 Other 60 30 Output: Urine 1295 2450 400 Other: Voiding Method Indwelling Catheter Indwelling Catheter Indwelling Catheter ABP, PAP, CO, CI - Last Documented Arterial Blood Pressure 137/80 - Exam 52-year-old male presents to Hospital feeling acutely ill found to have evidence of fever and then rapidly developed sepsis, HEENT: Anicteric conjunctiva are pink and moist nasal mucosa grossly intact without significant lesions, sedation now removed, tracheostomy intact without bleeding Neck: The neck is supple without significant lymphadenopathy or thyromegaly. Lungs: Good bilateral air entry with harsh breath sounds Heart: regular with an audible S1 and S2 soft S4 There is no significant murmur click or rub, PMI was nondisplaced. Abdomen: Obese Positive bowel sounds soft and nontender without palpable masses or organomegaly. There was no guarding or rebound. Extremities: The upper extremities have excellent pulses they are symmetric, no significant petechiae or telangiectasia. No splinter hemorrhages were noted. Right lower extremity has evidence of the prior great toe amputation which is well healed. Left lower extremity reveals evidence of the surgical incisions with silver dressings in place. There is still some swelling but the extensive swelling at the ankle has started to improve. There is no inguinal lymphadenopathy. Neuro: no longer sedated following commands - Labs CBC & Chem 7: 10/25/17 04:40 10/25/17 04:40 Labs: Abnormal Lab Results - Last 24 Hours (Table) 10/25/17 10/25/17 10/25/17 Range/Units 00:03 01:53 04:20 WBC (3.8-10.6) k/uL RBC (4.30-5.90) m/uL Hgb (13.0-17.5) gm/dL Hct (39.0-53.0) % Plt Count (150-450) k/uL Neutrophils # (1.3-7.7) k/uL ABG pCO2 (35-45) mmHg ABG pO2 (83-108) mmHg ABG HCO3 (21-25) mmol/L ABG Total CO2 (19-24) mmol/L ABG O2 Saturation (94-97) % Sodium (137-145) mmol/L BUN (9-20) mg/dL Creatinine (0.66-1.25) mg/dL Glucose (74-99) mg/dL POC Glucose (mg/dL) 147 H 168 H 184 H (75-99) mg/dL 10/25/17 10/25/17 10/25/17 Range/Units 04:30 04:40 04:40 WBC 10.8 H (3.8-10.6) k/uL RBC 3.25 L (4.30-5.90) m/uL Hgb 10.1 L (13.0-17.5) gm/dL Hct 29.1 L (39.0-53.0) % Plt Count 501 H (150-450) k/uL Neutrophils # 8.7 H (1.3-7.7) k/uL ABG pCO2 48 H (35-45) mmHg ABG pO2 132 H (83-108) mmHg ABG HCO3 30 H (21-25) mmol/L ABG Total CO2 32 H (19-24) mmol/L ABG O2 Saturation 99.1 H (94-97) % Sodium 136 L (137-145) mmol/L BUN 23 H (9-20) mg/dL Creatinine 0.60 L (0.66-1.25) mg/dL Glucose 155 H (74-99) mg/dL POC Glucose (mg/dL) (75-99) mg/dL 10/25/17 10/25/17 10/25/17 Range/Units 06:08 08:45 12:08 WBC (3.8-10.6) k/uL RBC (4.30-5.90) m/uL Hgb (13.0-17.5) gm/dL Hct (39.0-53.0) % Plt Count (150-450) k/uL Neutrophils # (1.3-7.7) k/uL ABG pCO2 (35-45) mmHg ABG pO2 (83-108) mmHg ABG HCO3 (21-25) mmol/L ABG Total CO2 (19-24) mmol/L ABG O2 Saturation (94-97) % Sodium (137-145) mmol/L BUN (9-20) mg/dL Creatinine (0.66-1.25) mg/dL Glucose (74-99) mg/dL POC Glucose (mg/dL) 194 H 174 H 168 H (75-99) mg/dL 10/25/17 10/25/17 10/25/17 Range/Units 14:34 17:54 19:18 WBC (3.8-10.6) k/uL RBC (4.30-5.90) m/uL Hgb (13.0-17.5) gm/dL Hct (39.0-53.0) % Plt Count (150-450) k/uL Neutrophils # (1.3-7.7) k/uL ABG pCO2 (35-45) mmHg ABG pO2 (83-108) mmHg ABG HCO3 (21-25) mmol/L ABG Total CO2 (19-24) mmol/L ABG O2 Saturation (94-97) % Sodium (137-145) mmol/L BUN (9-20) mg/dL Creatinine (0.66-1.25) mg/dL Glucose (74-99) mg/dL POC Glucose (mg/dL) 148 H 163 H 186 H (75-99) mg/dL 10/25/17 Range/Units 21:06 WBC (3.8-10.6) k/uL RBC (4.30-5.90) m/uL Hgb (13.0-17.5) gm/dL Hct (39.0-53.0) % Plt Count (150-450) k/uL Neutrophils # (1.3-7.7) k/uL ABG pCO2 (35-45) mmHg ABG pO2 (83-108) mmHg ABG HCO3 (21-25) mmol/L ABG Total CO2 (19-24) mmol/L ABG O2 Saturation (94-97) % Sodium (137-145) mmol/L BUN (9-20) mg/dL Creatinine (0.66-1.25) mg/dL Glucose (74-99) mg/dL POC Glucose (mg/dL) 181 H (75-99) mg/dL Laboratory Results WBC 10.8 k/uL (3.8-10.6) H 10/25/17 04:40 RBC 3.25 m/uL (4.30-5.90) L 10/25/17 04:40 Hgb 10.1 gm/dL (13.0-17.5) L 10/25/17 04:40 Hct 29.1 % (39.0-53.0) L 10/25/17 04:40 MCV 89.5 fL (80.0-100.0) 10/25/17 04:40 MCH 30.9 pg (25.0-35.0) 10/25/17 04:40 MCHC 34.6 g/dL (31.0-37.0) 10/25/17 04:40 RDW 14.0 % (11.5-15.5) 10/25/17 04:40 Plt Count 501 k/uL (150-450) H 10/25/17 04:40 Neutrophils % 81 % 10/25/17 04:40 Neutrophils % (Manual) 82 % 10/21/17 06:00 Band Neutrophils % 8 % 04/29/18 05:00 Lymphocytes % 9 % 10/25/17 04:40 Lymphocytes % (Manual) 9 % 10/21/17 06:00 Monocytes % 5 % 10/25/17 04:40 Monocytes % (Manual) 5 % 10/21/17 06:00 Eosinophils % 3 % 10/25/17 04:40 Eosinophils % (Manual) 3 % 10/20/17 05:00 Basophils % 1 % 10/25/17 04:40 Basophils % (Manual) 1 % 10/20/17 05:00 Metamyelocytes % 4 % 10/20/17 05:00 Myelocytes % 4 % 10/21/17 06:00 Neutrophils # 8.7 k/uL (1.3-7.7) H 10/25/17 04:40 Neutrophils # (Manual) 13.45 k/uL (1.3-7.7) H 10/21/17 06:00 Lymphocytes # 1.0 k/uL (1.0-4.8) 10/25/17 04:40 Lymphocytes # (Manual) 1.48 k/uL (1.0-4.8) 10/21/17 06:00 Monocytes # 0.6 k/uL (0-1.0) 10/25/17 04:40 Monocytes # (Manual) 0.82 k/uL (0-1.0) 10/21/17 06:00 Eosinophils # 0.3 k/uL (0-0.7) 10/25/17 04:40 Eosinophils # (Manual) 0.53 k/uL (0-0.7) 10/20/17 05:00 Basophils # 0.1 k/uL (0-0.2) 10/25/17 04:40 Basophils # (Manual) 0.18 k/uL (0-0.2) 10/20/17 05:00 Metamyelocytes # (Man) 0.70 k/uL (0) H 10/20/17 05:00 Myelocytes # (Manual) 0.66 k/uL (0) H 10/21/17 06:00 Nucleated RBCs 0 /100 WBC (0-0) 10/21/17 06:00 Manual Slide Review Performed 10/21/17 06:00 Toxic Granulation Present 10/20/17 05:00 Large Platelets Present 10/21/17 06:00 Polychromasia Present 10/21/17 06:00 Hypochromasia Slight 10/25/17 04:40 ESR 25 mm/hr (0-15) H 10/12/17 07:29 Sample Site rrad 10/25/17 04:30 ABG pH 7.41 (7.35-7.45) 10/25/17 04:30 ABG pCO2 48 mmHg (35-45) H 10/25/17 04:30 ABG pO2 132 mmHg (83-108) H 10/25/17 04:30 ABG HCO3 30 mmol/L (21-25) H 10/25/17 04:30 ABG Total CO2 32 mmol/L (19-24) H 10/25/17 04:30 ABG O2 Saturation 99.1 % (94-97) H 10/25/17 04:30 ABG Base Excess 5.4 mmol/L 10/25/17 04:30 Cr Test Yes 10/25/17 04:30 ABG Lactic Acid 1.0 mmol/L (0.5-1.6) 10/12/17 18:06 FiO2 50 % 10/25/17 04:30 Sodium 136 mmol/L (137-145) L 10/25/17 04:40 Potassium 4.1 mmol/L (3.5-5.1) 10/25/17 04:40 Chloride 100 mmol/L (98-107) 10/25/17 04:40 Carbon Dioxide 26 mmol/L (22-30) 10/25/17 04:40 Anion Gap 10 mmol/L 10/25/17 04:40 BUN 23 mg/dL (9-20) H 10/25/17 04:40 Creatinine 0.60 mg/dL (0.66-1.25) L 10/25/17 04:40 Est GFR (CKD-EPI)AfAm >90 (>60 ml/min/1.73 sqM) 10/25/17 04:40 Est GFR (CKD-EPI)NonAf >90 (>60 ml/min/1.73 sqM) 10/25/17 04:40 Glucose 155 mg/dL (74-99) H 10/25/17 04:40 POC Glucose (mg/dL) 181 mg/dL (75-99) H 10/25/17 21:06 POC Glu Breadman ID Townsend, Dory 10/25/17 21:[address] Glu mg/dL 214 10/12/17 07:29 Hemoglobin A1c 9.1 % (4.0-6.0) H 10/12/17 07:29 Plasma Lactic Acid Ron 1.5 mmol/L (0.7-2.0) 10/11/17 21:10 Uric Acid 5.6 mg/dL (3.5-8.5) 10/11/17 21:10 Calcium 8.8 mg/dL (8.4-10.2) 10/25/17 04:40 Phosphorus 4.2 mg/dL (2.5-4.5) 10/25/17 04:40 Magnesium 1.8 mg/dL (1.6-2.3) 10/25/17 04:40 AST 96 U/L (17-59) H 10/13/17 19:55 ALT 58 U/L (21-72) 10/13/17 19:55 C-Reactive Protein 45.1 mg/L (<10.0) H 10/11/17 21:10 Urine Color Yellow 10/15/17 11:30 Urine Appearance Clear (Clear) 10/15/17 11:30 Urine pH 6.0 (5.0-8.0) 10/15/17 11:30 Ur Specific [place] 1.018 (1.001-1.035) 10/15/17 11:30 Urine Protein 1+ (Negative) H 10/15/17 11:30 Urine Glucose (UA) 3+ (Negative) H 10/15/17 11:30 Urine Ketones Negative (Negative) 10/15/17 11:30 Urine Blood Small (Negative) H 10/15/17 11:30 Urine Nitrite Negative (Negative) 10/15/17 11:30 Urine Bilirubin Negative (Negative) 10/15/17 11:30 Urine Urobilinogen <2.0 mg/dL (<2.0) 10/15/17 11:30 Ur Leukocyte Esterase Negative (Negative) 10/15/17 11:30 Urine RBC <1 /hpf (0-5) 10/15/17 11:30 Urine WBC 3 /hpf (0-5) 10/15/17 11:30 Urine Mucus Rare /hpf (None) H 10/15/17 11:30 Blood Type O Positive 10/21/17 13:30 Blood Type Recheck No 10/21/17 13:30 Antibody Screen NEGATIVE 10/21/17 13:30 Spec Expiration Date 10/24/2017 - 232910/21/17 13:30 Microbiology 10/17/17 05:50 Blood Blood Culture - Final No Growth after 144 hours 10/17/17 04:07 Blood Blood Culture - Final No Growth after 144 hours 10/15/17 05:15 Sputum Gram Stain - Final 10/15/17 05:15 Sputum Sputum Culture - Final Jayne albicans 10/13/17 08:45 Blood Blood Culture Gram Stain - Final 10/13/17 08:45 Blood Blood Culture - Final Staphylococcus aureus 10/12/17 19:48 Ankle - Left Anaerobic Culture - Final 10/12/17 19:48 Ankle - Left Anaerobic Culture - Final 10/13/17 07:25 Blood Blood Culture Gram Stain - Final 10/13/17 07:25 Blood Blood Culture - Final Staphylococcus aureus 10/12/17 19:48 Ankle - Left Gram Stain - Final 10/12/17 19:48 Ankle - Left Wound Culture - Final Staph aureus 10/12/17 19:48 Ankle - Left Gram Stain - Final 10/12/17 19:48 Ankle - Left Wound Culture - Final Staphylococcus aureus 10/12/17 09:27 Synovial Fluid Gram Stain - Final 10/12/17 09:27 Synovial Fluid Body Fluid Culture - Final Staphylococcus aureus 10/13/17 07:25 Blood Blood Culture - Final 10/13/17 08:45 Blood Blood Culture - Final 10/11/17 21:15 Blood Blood Culture Gram Stain - Final 10/11/17 21:15 Blood Blood Culture - Final Staphylococcus aureus 10/11/17 21:15 Blood Blood Culture - Final Assessment and Plan (1) Septic arthritis of left ankle Narrative/Plan: 52-year-old male presents the emergency center with inability to bear weight to his left ankle. The patient has had some new orthotic boot manufactured in a developed a small ulcer on the dorsum of the left foot. This apparently was from a grommet from an orthotic. This was completely healed and was evaluated but was still having ongoing difficulties with ankle area. Is actively following up with orthopedic foot and ankle. The patient does have a boot that was designed that he was not wearing when he came to the office and understands it is important that he wears this when he is at work to protect his ankle from the Charcot changes. Patient however now has high-grade fever chills leukocytosis and laboratories: Positive blood culture with gram-positive cocci. The patient did have aspiration per orthopedic ankle grossly purulent material was found. Originally the plan was to go to the operating him in the morning but as the patient felt worsening sepsis he is no scheduled operating room this afternoon for the incision and drainage of this abscess. Deep cultures and pathology will also be sent. Antibiotic therapy is altered from vancomycin to daptomycin. In hopes to have a more rapid bacteriocidal activity given his rapidly declining status. Enhance glucose control be important part of his healing. Leukocytosis record related to his current sepsis. There is evidence of possible culture and he will require follow blood cultures in the morning. He was monitored for any persistence of his bacteremia. There will be a coordinated effort between orthopedic ankle and infectious disease as to the care at discharge. 10/13/2017 reveals the patient still needs intensive care unit after surgery with ongoing sepsis. Continues to have fever and leukocytosis and difficulties with acute lung injury and now elevated creatinine to 2.0. Patient continues to be resuscitated and has had some improvement but minimal at this point in time. He will continue with maneuvers to improve his fever maintain his hydration and antibiotic therapy continues with daptomycin for both staph aureus and MRSA, blood culture and aspirate from the ankle are still showing staph aureus final susceptibility is pending. Patient aware that if he improves he will be receiving a jg completed a long course of IV antibiotic therapy for this extensive infection. Leukocytosis directly related to the sepsis 10/14/2017 the patient remains in intensive care unit, high flow oxygen is being utilized for his acute lung injury. His creatinine has increased further is now 2.0. Urine output is adequate. He is symptomatically stable is having difficulties with shortness of breath. Pain at the foot and ankle is predictable but the significant swelling history improving after surgical incision and drainage. Ulceration is treated with a medical history dressing. If there is no further marked improvement by tomorrow the patient will likely go back to the operating him for further incision and drainage to the site. The case is discussed with the orthopedic surgeon. 10/15/2017 the patient is noted had a decline of his status and his required intubation with sedation mechanical ventilation and is now much more comfortable. His pulmonary status is improved with the intervention. He has not requiring vasopressor therapy. We'll do blood cultures verified MSSA and antibiotic therapy was transitioned to high dose cefazolin. The patient is evaluated in conjunction with the orthopedic surgeon and the plan is for the patient to have further debridement of the ankle tomorrow to ensure there is complete drainage of any abscess at that joint site given the progression of his underlying illness. Fortunately he has not hemodynamic stable and is having improvement of his leukocytosis. We'll expect as a sepsis improves his pulmonary injury will improve also. His creatinine peaked at 2.10 now down to 2.0 and nephrology has evaluated. Follow blood cultures to ensure clearance of his bacteremia. Echocardiogram without evidence of vegetations. Is not the case is discussed with the orthopedic surgeon as well as the patient' s . 10/16/2017 the patient's been taking to the operating room today for further debridement of the left ankle. Some necrotic bone was debrided but no further large pockets of abscess were seen. Wound vacs are applied. We'll continue his high-dose antibiotic therapy for his MSSA infection from the septic arthritis left ankle. There are several evidences of improvement today, still requires no vasopressor therapy. We'll expect as he starting to improve we need to start in the next day or so. Once he is evidence of clearance of his bacteremia will need IV access placed for his long-term IV antibiotic therapy. 10/17/2017 patient is hemodynamically stable without acute no difficulties today. He over did not do well with a weaning trial. Will be tried on a daily basis as per the emergency medicine nurse practitioner. He is hemodynamic stable and his adequate urinary output. We'll continue high-dose cefazolin and supportive care. It is likely that the wound vacs removed tomorrow with further evaluation of the ankle wounds at that time. Supportive care continues he's had a slight improvement of his creatinine and his sodium is improving. 10/18/2017 the patient remains medically stable and that her vasopressor therapy. Insulin drip is reduced. He did not do well with weaning trial today with significant hypertensive response. With the medications is better at this time. Acute renal failure has resolved leukocytosis is trending to improvement. And there is no negative blood culture from October 17. If the patient improves we'll transition to alternative IV access was for a dual lumen PICC line to be placed this will help us transition to his outpatient intravenous antibiotic therapy when he is improved. The wound VAC is removed at this point in time. Saline moistened opticell silver is applied without difficulty. This will be changed every other day. Pulmonary critical care will continue to move toward extubation. 10/21/2017 patient continues to have respiratory failure 10/21/2017 patient continues to have respiratory failure with ongoing intubation sedation and mechanical ventilation he is hemodynamically stable. Remains on insulin drip. Vital respiratory failure the patient will undergo tracheostomy and PEG tube placement later this week. 10/22/2017 patient remains intubated sedated paralyzed and mechanically ventilated. Tracheostomy is to happen soon. His MSSA sepsis is under control this point in time is developed ARDS and will require long-term weaning. Fever and leukocytosis have improved no other infections are noted local wound care to the ankle reveals evidence of the improving surgical wounds. 10/23/2017 the patient is now status Constantly ongoing plans for long-term weaning. Local wound care is with silver dressing.as infection is improving there will Be a possibility for negative pressure therapy system. Currently plan 6 weeks of intravenous antibiotic therapy for his MSSA sepsis. Pulmonary is following regarding his ARDS. Remains on an insulin drip through most the day. 10/24/2017 patient continues for the slow weaning process. Goal of the next 48 hours as further reduction of his propofol requirements so that he will become a candidate for long-term vent facility for his long-term weaning that will be required. The extensive infection to the left ankle area has been surgically debrided on 2 occasions and the leg is much improved. Bactrim has been resolved for quite some time. Is moderate ARDS and showing some slight improvement to the day today. Plan intravenous antibiotic therapy until 201710/25/2017 the patient has had further improvement today. Sedation has been held he's much And he is now much more awake and following commands. He has moderate ARDS is showing improvement and that his FiO2 is down to 40% his PEEP is 8. Patient is progressing well and likely will be able to go to a ventilator facility in the near future. He has noted his antimicrobial therapy continues through 11/28/2017 for his MSSA sepsis and septic arthritis of the left ankle Charcot joint. Local wound care continues with the Optisol silver with marked improvement to the site. Current Visit: Yes Status: Acute Code(s): M00.9 - PYOGENIC ARTHRITIS, UNSPECIFIED SNOMED Code(s): 70821529 (2) Sepsis Current Visit: Yes Status: Acute Priority: Medium Code(s): A41.9 - SEPSIS , UNSPECIFIED ORGANISM SNOMED Code(s): 59969874 (3) Poorly controlled type 2 diabetes mellitus with complication Current Visit: Yes Status: Chronic Code(s): E11.8 - TYPE 2 DIABETES MELLITUS WITH UNSPECIFIED COMPLICATIONS; E11.65 - TYPE 2 DIABETES MELLITUS WITH HYPERGLYCEMIA SNOMED Code(s): 43649749
[2017-10-25 23:45] LABS: Glucose,Whole Blood 169 mg/dL (75-99)
[2017-10-26] MEDS: ACETAMINOPHEN TAB 325 MG TAB PO PRN (00:47)
[2017-10-26] MEDS: IPRATROPIUM-ALBUTEROL 3 ML NEB INHALATION SCH ×6 (03:09→23:36)
[2017-10-26 03:10] LABS: Glucose,Whole Blood 104 mg/dL (75-99)
[2017-10-26 04:54] LABS: Basophils # (A) 0.1 k/uL (0-0.2); Basophils % (A) 1 %; Eosinophils # (A) 0.2 k/uL (0-0.7); Eosinophils % (A) 2 %; HCT 30.9 % (39.0-53.0); HGB 9.8 gm/dL (13.0-17.5); Lymphocytes # (A) 1.4 k/uL (1.0-4.8); Lymphocytes % (A) 11 %; MCH 28.1 pg (25.0-35.0); MCHC 31.6 g/dL (31.0-37.0); MCV 88.7 fL (80.0-100.0); Mean Platelet Volume 7.6; Monocytes # (A) 0.7 k/uL (0-1.0); Monocytes % (A) 5 %; Neutrophils # (A) 10.1 k/uL (1.3-7.7); Neutrophils % (A) 80 %; Platelet Count 547 k/uL (150-450); RBC 3.48 m/uL (4.30-5.90); WBC 12.6 k/uL (3.8-10.6)
[2017-10-26 05:12] LABS: Anion Gap 9 mmol/L; Blood Urea Nitrogen 28 mg/dL (9-20); Calcium 9.9 mg/dL (8.4-10.2); Carbon Dioxide 32 mmol/L (22-30); Chloride 105 mmol/L (98-107); Glucose 90 mg/dL (74-99); Magnesium 2.1 mg/dL (1.6-2.3); Phosphorus 4.2 mg/dL (2.5-4.5); Potassium 3.6 mmol/L (3.5-5.1); Sodium 146 mmol/L (137-145)
[2017-10-26 05:30] LABS: ABG Base Excess 8.3 mmol/L; ABG HCO3 32 mmol/L (21-25); ABG Oxygen Saturation 97.4 % (94-97); ABG PCO2 48 mmHg (35-45); ABG PH 7.44 (7.35-7.45); ABG PO2 90 mmHg (83-108); ABG TCO2 34 mmol/L (19-24)
[2017-10-26] MEDS: INSULIN ASPART 100 UNIT/ML 1 ML 10 ML VIAL SQ SCH ×3 (05:45→23:42)
[2017-10-26] MEDS: METOCLOPRAMIDE 5 MG/ML 2 ML VIAL IVP SCH ×4 (05:53→23:33)
[2017-10-26] MEDS: LABETALOL 5 MG/ML VIAL MDV IVP PRN ×2 (05:54→10:31)
[2017-10-26] MEDS: LEVOTHYROXINE IVP 100 MCG/5 ML VIAL IV SCH (06:21)
[2017-10-26] MEDS ORDERED: Potassium Replacement Protocol 1 EACH MISC MISCELLANE PRN (06:27)
[2017-10-26 06:28] LABS: Glucose,Whole Blood 82 mg/dL (75-99)
--- NOTE | 2017-10-26 06:49 | XR ---
EXAMINATION TYPE: XR chest 1V portable DATE OF EXAM: 10/26/2017 HISTORY: intubated, respiratory failure. REFERENCE: Previous study dated 10/25/2017. FINDINGS: There is a tracheostomy tube in place. Its tip overlies the tracheal air column in this sin gle frontal projection. There is significant breathing motion artifact on this study. There is a small left effusion. There i s vascular congestion present. There is bibasilar infiltrates. The overall appearance does not appear to have changed significantly from previous. IMPRESSION: NO SIGNIFICANT INTERVAL CHANGE IN THE APPEARANCE OF THE CHEST.
[2017-10-26] MEDS: POTASSIUM CHLORIDE 10 MEQ in WATER FOR INJECTION 1 100ML.BAG IVPB SCH ×2 (06:52→08:29)
[2017-10-26] MEDS: HEPARIN SODIUM,PORCINE 5,000 UNIT/ML 1 ML VIAL SQ SCH ×3 (08:29→23:33)
[2017-10-26] MEDS: ceFAZolin IN SWFI 2 GM/20 ML SYRINGE IVP SCH ×3 (08:29→23:33)
[2017-10-26] MEDS: CHLORHEXIDINE GLUCONATE 15 ML CUP MUCOUS MEM SCH ×2 (08:32→21:19)
[2017-10-26] MEDS: PANTOPRAZOLE 40 MG/10 ML VIAL IV SCH (08:33)
[2017-10-26] MEDS: SENNOSIDES-DOCUSATE SODIUM 1 EACH TAB PO SCH ×2 (08:35→21:19)
[2017-10-26] MEDS: FUROSEMIDE 10 MG/ML 2 ML VIAL IV SCH (08:40)
[2017-10-26] MEDS ORDERED: BISACODYL 10 MG SUPP RECTAL STA (08:55)
[2017-10-26] MEDS: ONDANSETRON 4 MG/2 ML VIAL IVP PRN (09:15)
[2017-10-26 09:30] LABS: Glucose,Whole Blood 88 mg/dL (75-99)
[2017-10-26] MEDS: INSULIN DETEMIR 100 UNIT/ML 10 ML VIAL SQ SCH ×2 (09:43→21:19)
[2017-10-26] MEDS ORDERED: LORazepam 2 MG/ML INJ ONE (10:27)
[2017-10-26] MEDS ORDERED: CISATRACURIUM 2 MG/ML 5 ML VIAL IV ONE ×4 (10:45→11:46)
--- NOTE | 2017-10-26 10:53 | P.PN ---
Subjective Progress Note Date: 10/26/17 Principal diagnosis: Sepsis and left foot infection with mental status changes Progress note dated 10/19/2017 This is a 52-year-old male with acute hypoxemic respiratory failure secondary to sepsis. He was admitted with a diagnosis of Septic Arthritis Involving the Left Ankle and He Status Post Left Ankle Irrigation and Debridement. He's Postop Day #7. He Wanted Month for Another Irrigation and Debridement, on 10/16 and Is Postop Day #3. Today We Did a Daily Eruption of Sedation. Unfortunately He Did Very Poorly. He Was Not Ready for a Spontaneous Breathing Trial. The patient has a history of acute severe sepsis with positive blood cultures for methicillin sensitive staph aureus, altered mental status acute hypoxemic and hypercapnic respiratory failure with mild ARDS, diabetes mellitus peripheral neuropathy chronic wounds and ulcerations of lower extremities Charcot joints of morbid obesity hypertension hyperlipidemia hypothyroidism acute kidney injury and hypernatremia. I had a long talk with the family today. The understand that by mid next week if the patient does not show improvement, would likely send patient for a tracheostomy and PEG tube. Progress note dated 10/20/2017 A 52-year-old male with a history of acute hypoxemic respiratory failure secondary to sepsis. The patient was admitted with a diagnosis of septic arthritis involving the left ankle and he is status post left ankle irrigation and debridement, postop day #8. He also had an irrigation and debridement a second time and for that when he is postop day #4. The patient had a daily eruption of sedation yesterday and unfortunately did very poorly and again today he had daily eruption of sedation and again did very poorly. His respiratory rate was quite high. Heart rate was very high. The patient went very high. He was not responsive. The patient does not follow simple commands. He may eventually need a tracheostomy and PEG tube placement. I did have a long discussion with his yesterday. In addition, the patient is positive blood culture for methicillin sensitive staph aureus mental status changes acute hypoxemic and hypercapnic respiratory failure mild ARDS based on a PaO2/FiO2 ratio, diabetes peripheral neuropathy chronic wounds and ulcerations of lower extremities Charcot joints morbid obesity hypertension hyperlipidemia hypothyroidism acute kidney injury and hypernatremia. I did mention tracheostomy and PEG tube yesterday with the . Again, the patient has shown no significant improvement over the last 48 hours. Chest x-ray is unchanged. Microbiology is reviewed. White count 17.5, hemoglobin 10.4 platelet count normal. Arterial blood gases show a PaO2 of 74 a PaCO2 of 38 and pH is 7.44. Sodium is 139 potassium 3.8 chloride is 105 CO2 23 BUN and creatinine 24 and 0.78 respectively. The patient's vent settings are the volume assist control mode, rate of 26, tidal volume 500, FiO2 50% and PEEP of 8. The patient's currently on propofol at 50 mics per kilogram per minute, Cleviprex at 21 mg per hour and a D5W IV at KVO. The patient is receiving vital high protein at 20 with a goal of 20. Progress note dated 10/21/2017 52-year-old male with a history of acute hypoxemic respiratory failure secondary to sepsis. The patient was admitted with a diagnosis of septic arthritis involving the left ankle many status post left ankle irrigation and debridement, postop day #9. He also had a second irrigation and he is postop day #5 on that one. Unfortunately, over the weekend, the patient has made no progress in yesterday because of worsening respiratory status, the patient had to be paralyzed. He was given Nimbex 10 mg IV and started on a Nimbex drip. We 'll do [id number] monitoring. Also, yesterday we had issues with his heart rate and blood pressure. We had added some labetalol to his Cleviprex. Finally , the patient's oxygenation worsened suggesting is acute respiratory distress syndrome has worsened. Currently on 70% FiO2 and 12 of PEEP. I did have a long discussion with the on Saturday. I explained that he probably end up with a tracheostomy and PEG tube placed. I will ask the thoracic surgeon about that today. Blood cultures are positive multiple times for methicillin sensitive staph aureus. The patient does have a history of Charcot joints morbid obesity hypertension hyperlipidemia hypothyroidism acute kidney injury and hypernatremia. Currently, the patient's vent settings are the assist control mode rate of 26 tidal volume 500 FiO2 70% PEEP of 12 blood gases show a PaO2 of 69 and a PaCO2 of 53 and a pH 7.32. The patient is on Nimbex at 3 mics per kilogram per minute, propofol 60 mikes per kilogram per minute, Cleviprex at 14 mg an hour, insulin 16 units an hour saline IV at 20 mL an hour and vital high protein and rate of 20 with a goal of 20 mL per hour. Needless to say, the patient's very critically ill. Progress note dated 10/22/2017 52-year-old male with a history of acute hypoxemic respiratory failure secondary to sepsis. The patient was admitted initially admitted with a diagnosis of septic arthritis involving the left ankle and he status post left ankle irrigation and debridement, postop day #10 he had a second procedure done and on that procedure he is postop day #6. The patient has made no progress on the ventilator. I did ask the thoracic surgeon to see him for a tracheostomy and PEG tube placement. She oxygenation and dyssynchronous with the ventilator , the patient was paralyzed. We've also some additional blood pressure control. His blood pressure has been high despite maximal doses of Cleviprex and labetalol IV. Anyway, the patient is scheduled for a tracheostomy and PEG tube on Saturday. This been no changes in his status since that time. The patient has a history of multiple positive blood cultures for methicillin sensitive staph aureus. He does have a history of Charcot joints, morbid obesity, hypertension, hyperlipidemia, hypothyroidism, acute kidney injury, and hypernatremia. Currently, the patient's on the volume assist control modality, rate is 26 tidal volume is 500 FiO2 70% PEEP of 12. Arterial blood gases show a PaO2 of 139 a PaCO2 40 and a pH of 7.36. If the FiO2 we dropped down to 55%. The patient receiving a saline IV at 20 mL an hour propofol 60 mikes per kilogram per minute insulin drip at 13 units per hour Nimbex at 4 mics per kilogram per minute vital high protein at 20 with a goal of 20 mL an hour and the Cleviprex is off. Sodium is 141 potassium 4.4 chloride 105 CO2 27 and BUN and creatinine is 27 0.79. CBC is pending Chest x-ray shows diffuse infiltrates with possible small effusions. Endotracheal tube in good position. Progress note dated 10/23/2017 52-year-old male with a history of acute hypoxemic respiratory failure sepsis and acute respiratory distress syndrome. The patient was initially admitted with a diagnosis of septic arthritis involving the left ankle and he status post left ankle irrigation and debridement, postop day #11. In addition, he had a second irrigation/debridement and he is postop day #7 on that procedure. The patient has made no progress in regards to weaning and extubation. The patient has been dyssynchronous on the ventilator and required heavy sedation and paralysis. He is going to have a tracheostomy and PEG tube placement today. I've had ongoing discussions with his . Also, we had issues with blood pressure control is required both Cleviprex and IV labetalol for that. He does have positive blood cultures for methicillin sensitive staph aureus. Being treated for that. He has a history of Charcot joints morbid obesity hypertension hyperlipidemia hypothyroidism acute kidney injury and hypernatremia. The patient's currently on the ventilator with the same settings. He is receiving a saline IV at 20 mL an hour propofol 70 mics per kilogram per minute and Nimbex at 4 mics per kilogram per minute. His arterial blood gases show a PaO2 of 97 a PaO2 of 47 and a pH of 7.38. The patient's chest x-ray shows worsening bilateral infiltrates. Labs x-rays a medications are all reviewed. Progress note dated 10/24/2017 52-year-old male with a history of acute hypoxemic respiratory failure sepsis and acute respiratory distress syndrome. By PF ratio, the patient has moderate ARDS. The patient was initially admitted with a diagnosis of septic arthritis involving the left ankle and he status post left ankle irrigation and debridement postop day #12 and a second procedure done similarly, postop day # 8. The patient is postop day #1 status post tracheostomy and PEG tube placement. He is currently off paralysis. Tube feeds can resume at 3:00 today. The patient has a history of methicillin sensitive staph aureus sepsis. In addition, the patient has Charcot joints morbid obesity hypertension hyperlipidemia hypothyroidism acute kidney injury and hypernatremia. Currently , he's on the volume assist control mode rate of 26, tidal volume 500, FiO2 55% to be dropped to 40% and PEEP of 12. Blood gases show a PaO2 of 1:30 a PaCO2 of 48 and a pH of 7.4. The patient is on saline IV at KVO, propofol 70 mics per kilogram per minute insulin drip at 6 units an hour and tube feeds are on hold but will resume at 3:00 today. Again tracheostomy and PEG tube placement on October 23. The plan today will be to slowly wean the propofol. We'll see for can start moving the patient reports liberation from mechanical ventilation. We will drop the FiO2 down to 40%. If his oxygen remained stable, start making drops in PEEP. Progress note dated 10/25/2017 52-year-old male with a history of acute hypoxemic respiratory failure, sepsis, and acute respiratory distress syndrome. The patient down has developed ARDS. He is postop day #13 status post initial debridement and irrigation of left ankle septic arthritis. His second procedure done, postop day #9. He is postop day #2 status post tracheostomy and PEG tube placement. The patient's currently on the ventilator on the volume assist control mode rate of 26 tidal volume 500 FiO2 to be dropped from 50-40% PEEP of 12. Arterial blood gases on the same settings but 50%, show a PaO2 of 132 a PaCO2 47 and a pH of 7.41. The patient's medications include propofol at 30 mics per kilogram per minute, insulin at 6 units per hour, vital high protein at 30 with a goal of 44 and a saline IV at 20. Because of the patient's poor mental status, the patient will have a CT of the brain without contrast and EEG. In addition, the chest x-ray shows bilateral infiltrates consistent with the diagnosis of acute respiratory distress syndrome. The patient's propofol has been weaned down from 70 to 30 mics per kilogram per minute. The patient's overall prognosis is very guarded. Daily conversations with his have been done to let her know about this. She seems understand. I'm hoping that down the patient will show some improvement since having the tracheostomy and PEG tube was done. Progress note dated 10/25/2017 This is a 52-year-old male, with a history of acute hypoxemic respiratory failure, sepsis, acute respiratory distress syndrome. The patient developed ARDS. It started as a left ankle septic arthritis. He's postop day number debridement of that left ankle twice. He's postop day #14 the first time and postop day #10 the second time. He also status post trach and PEG. He was doing very very well. The patient was on the assist control mode rate of 26 tidal volume 500 FiO2 40% PEEP of 8 to be dropped down to PEEP of 5. His blood gases showed a PaO2 of 90 a PaCO2 of 48 and a pH 7.44. I was consistent with a very mild metabolic alkalosis. The patient was getting lactated Ringer's at 20 mL an hour and tube feeds are on hold because of vomiting. I was going to switch him from the current settings volume assist control to pressure support ventilation of 8 and CPAP of 5. After doing that, the patient developed acute respiratory difficulty with cyanosis. He was back. Never lost his rhythm. It happened a second time. Were not sure why. He does have a big difference with previous peak and plateau airway pressures. It could be a kink doesn't tracheostomy tube around the tracheostomy against the wall of the trachea midline mucous plug. Anyway a stat Blood gas and chest x-ray being done. His chest x-rays been stable. His white count is 12.6-year-old woman 9.8 hematocrit 30.9 platelet count 549,000. Sodium is 146 his chlorides is 105 potassium 3.6 and CO2 32. BUN/creatinine was 28 and 0.7. Microbiology has only been positive for methicillin sensitive staph aureus. Objective - Vital Signs Vital signs: Vital Signs Temp 99.0 F 10/26/17 08:00 Pulse 84 10/26/17 09:00 Resp 29 H 10/26/17 09:00 BP 127/62 10/26/17 09:00 Pulse Ox 96 10/26/17 09:00 Intake & Output 10/25/17 10/26/17 10/26/17 18:59 06:59 18:59 Intake Total 698.791 480 40 Output Total 2450 1055 325 Balance -1751.209 -575 -285 Weight 156.6 kg 151.7 kg Intake: IV 210 340 40 0.9 NS 110 20 Lactated Ringers 1,000 ml 240 20 @ 20 mls/hr IV .Q24H [facility] Rx#:[id number] Magnesium Sulfate-D5w Pmx 100 1 gm In Dextrose/Water 1 100ml.bag @ 100 mls/hr IVPB Q1H [facility] Rx#: [id number] Potassium Chloride 10 meq 100 In Water For Injection 1 100ml.bag @ 100 mls/hr IVPB Q1H [facility] Rx#: [id number] Intake, IV Titration 338.791 Amount Insulin Regular 100 unit 3.808 In Sodium Chloride 0.9% 100 ml @ Per Protocol IV .Q0M [facility] Rx#:[id number] Magnesium Sulfate-D5w Pmx 200 1 gm In Dextrose/Water 1 100ml.bag @ 100 mls/hr IVPB Q1H [facility] Rx#: [id number] Propofol 1,000 mg In 134.983 Empty Bag 1 bag @ Per Protocol IV .Q0M [facility] Rx#: [id number] Tube Feeding 150 110 Other 30 Output: Urine 2450 1055 325 Other: Voiding Method Indwelling Catheter Indwelling Catheter # Bowel Movements 0 ABP, PAP, CO, CI - Last Documented Arterial Blood Pressure 137/80 - Exam No acute distress, sedated , with a midline tracheostomy tube and a PEG tube HEENT examination is grossly unremarkable. Mucous membranes are moist. Neck supple. Full range of motion. No adenopathy thyromegaly or neck vein distention. Cardiovascular examination reveals regular rhythm rate. S1-S2 normal. No S3 or S4. No discernible murmur noted. Lungs reveal diminished breath sounds. Coarse bilateral rhonchi are noted. Breath sounds are equal bilaterally. No crackles. Abdomen soft bowel sounds are heard. No masses or tenderness. PEG tube noted. Extremities are intact. Both lower extremities are wrapped in Geoffrey wraps. Also examination cannot be done. Edema is clearly present though.. Skin is without rash or lesion. Neurologic examination could not be performed - Labs CBC & Chem 7: 10/26/17 04:30 10/26/17 04:30 Labs: Abnormal Lab Results - Last 24 Hours (Table) 10/25/17 10/25/17 10/25/17 Range/Units 12:08 14:34 17:54 WBC (3.8-10.6) k/uL RBC (4.30-5.90) m/uL Hgb (13.0-17.5) gm/dL Hct (39.0-53.0) % Plt Count (150-450) k/uL Neutrophils # (1.3-7.7) k/uL ABG pCO2 (35-45) mmHg ABG HCO3 (21-25) mmol/L ABG Total CO2 (19-24) mmol/L ABG O2 Saturation (94-97) % Sodium (137-145) mmol/L Carbon Dioxide (22-30) mmol/L BUN (9-20) mg/dL POC Glucose (mg/dL) 168 H 148 H 163 H (75-99) mg/dL 10/25/17 10/25/17 10/25/17 Range/Units 19:18 21:06 23:44 WBC (3.8-10.6) k/uL RBC (4.30-5.90) m/uL Hgb (13.0-17.5) gm/dL Hct (39.0-53.0) % Plt Count (150-450) k/uL Neutrophils # (1.3-7.7) k/uL ABG pCO2 (35-45) mmHg ABG HCO3 (21-25) mmol/L ABG Total CO2 (19-24) mmol/L ABG O2 Saturation (94-97) % Sodium (137-145) mmol/L Carbon Dioxide (22-30) mmol/L BUN (9-20) mg/dL POC Glucose (mg/dL) 186 H 181 H 169 H (75-99) mg/dL 10/26/17 10/26/17 10/26/17 Range/Units 03:09 04:30 04:30 WBC 12.6 H (3.8-10.6) k/uL RBC 3.48 L (4.30-5.90) m/uL Hgb 9.8 L (13.0-17.5) gm/dL Hct 30.9 L (39.0-53.0) % Plt Count 547 H (150-450) k/uL Neutrophils # 10.1 H (1.3-7.7) k/uL ABG pCO2 (35-45) mmHg ABG HCO3 (21-25) mmol/L ABG Total CO2 (19-24) mmol/L ABG O2 Saturation (94-97) % Sodium 146 H (137-145) mmol/L Carbon Dioxide 32 H (22-30) mmol/L BUN 28 H (9-20) mg/dL POC Glucose (mg/dL) 104 H (75-99) mg/dL 10/26/17 Range/Units 05:18 WBC (3.8-10.6) k/uL RBC (4.30-5.90) m/uL Hgb (13.0-17.5) gm/dL Hct (39.0-53.0) % Plt Count (150-450) k/uL Neutrophils # (1.3-7.7) k/uL ABG pCO2 48 H (35-45) mmHg ABG HCO3 32 H (21-25) mmol/L ABG Total CO2 34 H (19-24) mmol/L ABG O2 Saturation 97.4 H (94-97) % Sodium (137-145) mmol/L Carbon Dioxide (22-30) mmol/L BUN (9-20) mg/dL POC Glucose (mg/dL) (75-99) mg/dL Assessment and Plan Assessment: Assessment Acute septic arthritis of the left ankle, status post left ankle irrigation with debridement, postoperative day #14 and subsequent irrigation did the debridement, postop day #10 Postop day #3, status post tracheostomy and PEG tube placement. Acute hypoxemic respiratory failure requiring intubation and mechanical ventilation with failure to wean from mechanical ventilation despite daily interruption of sedation and spontaneous breathing trial Failure to wean from mechanical ventilation, with anticipated tracheostomy tomorrow Acute severe sepsis with positive blood cultures for methicillin sensitive Staphylococcus Mental status changes, set secondary to sepsis encephalopathy Moderate ARDS with a PF ratio of 176 Diabetes mellitus with poor sugar control Severe peripheral neuropathy History of chronic wounds and ulcerations of the lower extremities with cellulitis Charcot joints Morbid obesity Hypertension Hyperlipidemia Hypothyroidism Acute kidney injury Hypernatremia Plan: Plan dated 10/19/2017 The patient did have a daily eruption of sedation and a spontaneous breathing trial. His mental status was poor. His heart rate went up quite high with increased respiratory rate and blood pressure. The patient's mental status was poor as I mention that he was not ready for extubation. I did have a long talk with the family. They do understand that the patient may end up requiring a tracheostomy and PEG tube. He'll continue on antibiotics. No additional recommendations are made. Prognosis is poor. We will use Cleviprex for blood pressure control. We will discontinue all the other medications that were being used for blood pressure. She can titrate off of Plavix better. We sedate the patient. We will use a small amount of narcotic. Additional sedation. We'll place the patient back on the mechanical ventilator. We'll resume nutrition. Additional recommendations and suggestions are forthcoming. Plan dated 10/20/2017 Again the patient had a daily eruption of sedation and did very poorly. He was not a candidate for spontaneous breathing trial. He remains on Cleviprex at a relatively higher dose for blood pressure control and propofol. The patient is getting nutrition. I did talk to the yesterday. I let her know that the patient was not doing well and may be headed towards tracheostomy and PEG tube placement. He remains on updrafts every 4 [id number]. Not able to be weaned today. The patient blood pressure 1 of over 200 and his respiratory rate went up over 40 on holding of sedation. Chest x-ray stable. No additional recommendations are made. Prognosis is guarded. And he may end up with a trach and PEG. Critical care time 33 minutes Plan dated 10/21/2017 The patient did miserably over the weekend. Showed no progress with his daily interruption of sedation. The patient had to be paralyzed her. In addition, the patient needed additional blood pressure medication for blood pressure control. We will consult the thoracic surgeon for PEG and tracheostomy tube. Overall prognosis is poor he continues on all appropriate medications. Superflous and unnecessary medications are discontinued. The patient will continue on Nimbex propofol Cleviprex insulin and nutrition Critical care time 37 minutes Plan dated 10/22/2017 The patient continues to do poorly. By P/F criteria, he does have ARDS. The patient's FiO2 though, could be dropped to 55% today. He remains on PEEP of 12. The patient will likely have a tracheostomy and PEG tube done tomorrow. I did speak to the yesterday. She understands prognosis. The patient remained on number different medications including propofol insulin Nimbex. Cleviprex his been weaned off. He's continuing to receive nutrition. Labs and x-rays are reviewed. Again prognosis is very poor. Critical care time 38 minutes Plan dated 10/23/2017 The patient continues to do poorly. The patient will have a tracheostomy PEG tube placed today. We'll keep on the same that settings for now. We will make any FiO2 of PEEP changes at this time. The patient is getting a result of 2 feeds are on hold for the procedure. The patient is receiving saline at 20 mL an hour. The patient's on propofol 70 mics per kilogram per minute and Nimbex at 4 mics per kilogram per minute with [id number] monitoring. His overall prognosis remains poor. The patient has not made any substantial improvement. Chest x-ray today is a bit worse. Additional recommendations and suggestions are forthcoming. Critical care time is 35 minutes Plan dated 10/24/2017 The patient is postop day #1 status post tracheostomy and PEG tube placement. The FiO2 was dropped from 55-40%. We'll start weaning the PEEP. The patient is currently off paralysis. We'll start weaning the propofol down. Additional recommendations and suggestions are forthcoming. Chest x-ray is stable. In fact, patient was somewhat improved aeration. We'll continue to monitor closely. Prognosis is guarded. I have been honest with the patient's family all along. After discussions with the and brother. Critical care time 38 minutes. Plan dated 10/25/2017 The patient is postop day #2 status post tracheostomy and PEG tube placement. The propofol has been weaned down to 30 mics per kilogram per minute. The patient's chest x-ray showed bilateral infiltrates. The patient's mental status is poor. We'll go ahead and evaluate him with a computed tomography scan of the brain without contrast and EEG. We may ask neurology to see the patient. This may be nothing more than anoxic/metabolic encephalopathy. Prognosis is guarded. The patient remains on a number drips including propofol insulin and saline. The patient's also on tube feeds with vital high protein at 30 mL with a goal of 44 mL/h. The FiO2 was dropped down to 40%. I'll make sure that any vent changes are only done by the critical care physician. Critical care time 37 minutes Plan dated Oct 26 2017 The patient is postop day #3, status post tracheostomy and PEG tube placement. The patient will be given a one-time dose of Nimbex. We'll get a stat chest x- ray and blood gas. Additional recommendations and suggestions are forthcoming. We place him back on the assist control mode. No additional weaning today. We'll continue to follow. Prognosis is guarded. We'll resume tube feeds later today at 10 mL an hour. Currently on hold. Critical care time 34 minutes Time with Patient: Greater than 30
[2017-10-26 11:01] LABS: ABG Base Excess 7.1 mmol/L; ABG HCO3 32 mmol/L (21-25); ABG Oxygen Saturation 96.2 % (94-97); ABG PCO2 51 mmHg (35-45); ABG PH 7.41 (7.35-7.45); ABG PO2 82 mmHg (83-108); ABG TCO2 33 mmol/L (19-24)
[2017-10-26] MEDS: MORPHINE SULFATE 4 MG/ML SYRINGE IVP PRN (11:26)
[2017-10-26] MEDS ORDERED: CLEVIDIPINE BUTYRATE 25 MG/50 ML VIAL IV ONE (11:33)
[2017-10-26] MEDS ORDERED: NOREPINEPHRIN 4 MG-0.9% NS PMX 4 MG/250 ML ML IV ONE (12:01)
--- NOTE | 2017-10-26 12:12 | P.PN ---
Progress Note - Text Progress Note Date: 10/26/17 Asked to see patient regarding tracheostomy ventilator malfunction. On endoscopy found there to be some ballooning posteriorly of the membranous portion of the trachea which was obstructing the tracheostomy distally. We were unable to change this for a new tube over a ET tube changer. We therefore very quickly remove the previous tracheostomy tube. We placed the trachea on traction with a tracheal hook and placed a #8 Shiley distal XLT tube. We bronchoscoped afterwards and found this to be in good position just above the wilder. They were ventilating quite well with this tube. The patient tolerated the procedure well. Saturations were in the 70s for only about 2-3 minutes. The tracheostomy was resecured.
--- NOTE | 2017-10-26 12:16 | XR ---
EXAMINATION TYPE: XR chest 1V portable DATE OF EXAM: 10/26/2017 HISTORY: desating, stacking breaths. REFERENCE: Previous study dated 10/26/2017. FINDINGS: There is a tracheostomy tube in place. Its tip overlies the tracheal air column in this sin gle frontal projection. The heart is mildly enlarged. There is bibasilar atelectasis. I could not exclude a small left effusi on. The overall appearance is very similar to previous. IMPRESSION: NO SIGNIFICANT INTERVAL CHANGE IN THE APPEARANCE OF THE CHEST.
[2017-10-26] MEDS: PROPOFOL 1,000 MG in EMPTY BAG 1 BAG IV SCH ×2 (13:06→18:43)
--- NOTE | 2017-10-26 14:10 | P.PN ---
Subjective 52-year-old admitted to ICU secondary to sepsis leading to acute respiratory distress syndrome patient remains intubated on ventilator is being managed by librarian special collections patient underwent irrigation and the bride meant of the left ankle twice during this hospitalization. Patient has MSSA in the joint and patient is presently on ceftezole and for that reason. Patient is intubated sedated and patient is on Precedex with anticipation of extubation tomorrow. 10/20/2017 Patient remains intubated patient is on high-dose of IV insulin and requiring large amounts of sedation remains in hypoxic respiratory failure had a low- grade fever today if he continues to have low-grade fevers or has a high-grade fever repeat blood cultures will be obtained 10/21/2017 Patient maintains intubated, still remains on 70% FiO2 and [employer] [employer] his considering tracheostomy and PEG tube placement. Patient had low-grade fevers yesterday. Patient is on paralytic agents now with fairly well-controlled blood pressure, clevidipine was discontinued 10/22/2017 Patient's FiO2 has come down to 50% today no other significant changes were made to vent. 10/23/2017 Patient is going for a tracheostomy and PEG tube placement patient remains an FiO2 of 55% plan is to this can you paralytics after tracheostomy. 10/24/2017 Patient had a tracheostomy and PEG tube placement remains on 40% FiO2 and PEEP of 12 didn't have a bowel movement for a few days we'll try lactulose and senna through PEG tube. No significant change in his overall clinical condition plan is to wean off propofol 10/25/2017 Patient is being transitioned to subcutaneous insulin patient is waking up slowly taking a while because the patient was on sedation for long period of time patient vent settings seem to be better with PEEP of 8 now FiO2 of 40%. 10/26/2017 Patient failed spontaneous breathing trial, later found to have nonfunctional tracheostomy tube which was replaced today. Patient is still sedated for rather tracheostomy tube and I evaluated him. Patient is back on 100% FiO2 which will be tapered down PEEP of 10 Objective - Vital Signs Vital signs: Vital Signs Temp 99.0 F 10/26/17 08:00 Pulse 81 10/26/17 13:00 Resp 10 L 10/26/17 13:00 BP 103/49 10/26/17 13:00 Pulse Ox 95 10/26/17 13:00 Intake & Output 10/25/17 10/26/17 10/26/17 18:59 06:59 18:59 Intake Total 698.791 480 142.599 Output Total 2450 1055 575 Balance -1751.209 -575 -432.401 Weight 156.6 kg 151.7 kg 151.7 kg Intake: IV 210 340 120 0.9 NS 110 60 Lactated Ringers 1,000 ml 240 60 @ 20 mls/hr IV .Q24H [facility] Rx#:[id number] Magnesium Sulfate-D5w Pmx 100 1 gm In Dextrose/Water 1 100ml.bag @ 100 mls/hr IVPB Q1H [facility] Rx#: [id number] Potassium Chloride 10 meq 100 In Water For Injection 1 100ml.bag @ 100 mls/hr IVPB Q1H [facility] Rx#: [id number] Intake, IV Titration 338.791 22.599 Amount Clevidipine Butyrate 25 0 mg In Empty Bag 1 bag @ 1 MG/HR 2 mls/hr IV .Q24H [facility] Rx#:[id number] Insulin Regular 100 unit 3.808 In Sodium Chloride 0.9% 100 ml @ Per Protocol IV .Q0M [facility] Rx#:[id number] Magnesium Sulfate-D5w Pmx 200 1 gm In Dextrose/Water 1 100ml.bag @ 100 mls/hr IVPB Q1H [facility] Rx#: [id number] Propofol 1,000 mg In 134.983 22.599 Empty Bag 1 bag @ Per Protocol IV .Q0M [facility] Rx#: [id number] Tube Feeding 150 110 Other 30 Output: Urine 2450 1055 575 Other: Voiding Method Indwelling Catheter Indwelling Catheter # Bowel Movements 0 ABP, PAP, CO, CI - Last Documented Arterial Blood Pressure 137/80 - Exam PHYSICAL EXAMINATION: GENERAL: Patient has tracheostomy now, morbidly obese PEG tube with continuous supplementation, bit drowsy after sedation for tracheostomy HEENT: Pupils are round and equally reacting to light. EOMI. No scleral icterus. No conjunctival pallor. Normocephalic, atraumatic. No pharyngeal erythema. No thyromegaly. CARDIOVASCULAR: S1 and S2 present. No murmurs, rubs, or gallops. PULMONARY: Chest is clear to auscultation, no wheezing or crackles. ABDOMEN: Soft, nontender, nondistended, normoactive bowel sounds. No palpable organomegaly. MUSCULOSKELETAL: Patient left leg is wrapped in Geoffrey bandages EXTREMITIES: No cyanosis, clubbing, or pedal edema. NEUROLOGICAL: Unable to assess due to the above-mentioned reasons SKIN: No rashes. - Labs CBC & Chem 7: 10/26/17 04:30 10/26/17 04:30 Labs: Abnormal Lab Results - Last 24 Hours (Table) 10/25/17 10/25/17 10/25/17 Range/Units 14:34 17:54 19:18 WBC (3.8-10.6) k/uL RBC (4.30-5.90) m/uL Hgb (13.0-17.5) gm/dL Hct (39.0-53.0) % Plt Count (150-450) k/uL Neutrophils # (1.3-7.7) k/uL ABG pCO2 (35-45) mmHg ABG pO2 (83-108) mmHg ABG HCO3 (21-25) mmol/L ABG Total CO2 (19-24) mmol/L ABG O2 Saturation (94-97) % Sodium (137-145) mmol/L Carbon Dioxide (22-30) mmol/L BUN (9-20) mg/dL POC Glucose (mg/dL) 148 H 163 H 186 H (75-99) mg/dL 10/25/17 10/25/17 10/26/17 Range/Units 21:06 23:44 03:09 WBC (3.8-10.6) k/uL RBC (4.30-5.90) m/uL Hgb (13.0-17.5) gm/dL Hct (39.0-53.0) % Plt Count (150-450) k/uL Neutrophils # (1.3-7.7) k/uL ABG pCO2 (35-45) mmHg ABG pO2 (83-108) mmHg ABG HCO3 (21-25) mmol/L ABG Total CO2 (19-24) mmol/L ABG O2 Saturation (94-97) % Sodium (137-145) mmol/L Carbon Dioxide (22-30) mmol/L BUN (9-20) mg/dL POC Glucose (mg/dL) 181 H 169 H 104 H (75-99) mg/dL 10/26/17 10/26/17 10/26/17 Range/Units 04:30 04:30 05:18 WBC 12.6 H (3.8-10.6) k/uL RBC 3.48 L (4.30-5.90) m/uL Hgb 9.8 L (13.0-17.5) gm/dL Hct 30.9 L (39.0-53.0) % Plt Count 547 H (150-450) k/uL Neutrophils # 10.1 H (1.3-7.7) k/uL ABG pCO2 48 H (35-45) mmHg ABG pO2 (83-108) mmHg ABG HCO3 32 H (21-25) mmol/L ABG Total CO2 34 H (19-24) mmol/L ABG O2 Saturation 97.4 H (94-97) % Sodium 146 H (137-145) mmol/L Carbon Dioxide 32 H (22-30) mmol/L BUN 28 H (9-20) mg/dL POC Glucose (mg/dL) (75-99) mg/dL 10/26/17 Range/Units 10:55 WBC (3.8-10.6) k/uL RBC (4.30-5.90) m/uL Hgb (13.0-17.5) gm/dL Hct (39.0-53.0) % Plt Count (150-450) k/uL Neutrophils # (1.3-7.7) k/uL ABG pCO2 51 H (35-45) mmHg ABG pO2 82 L (83-108) mmHg ABG HCO3 32 H (21-25) mmol/L ABG Total CO2 33 H (19-24) mmol/L ABG O2 Saturation (94-97) % Sodium (137-145) mmol/L Carbon Dioxide (22-30) mmol/L BUN (9-20) mg/dL POC Glucose (mg/dL) (75-99) mg/dL Assessment and Plan Plan: Acute septic arthritis of the left ankle, status post left ankle irrigation with debridement, twice during this hospitalization and patient has MSSA and patient is on ceftezolin. Acute hypoxemic respiratory failure requiring intubation and mechanical ventilation with failure to wean from mechanical ventilation, possibility of ARDS patient is on prolonged mechanical ventilation patient did a tracheostomy and PEG tube in place.precast which he was replaced or, patient failed weaning trial Acute severe sepsis with positive blood cultures for methicillin sensitive Staphylococcus Mental status changes, set secondary to sepsis encephalopath Diabetes mellitus: patient was transitioned to subcutaneous insulin but his blood sugars drop but because patient is not getting much of to feedings as he was having high residuals. Cutting down the dose of Lantus at nighttime to 50 units discontinue morning Lantus will only use sliding scale for now Severe peripheral neuropathy History of chronic wounds and ulcerations of the lower extremities with cellulitis Charcot joints Morbid obesity Hypertension Hyperlipidemia Hypothyroidism Acute kidney injury Constipation: Management as mentioned above
[2017-10-26 15:31] LABS: Glucose,Whole Blood 137 mg/dL (75-99)
[2017-10-26 18:28] LABS: Glucose,Whole Blood 155 mg/dL (75-99)
[2017-10-26] MEDS: LACTATED RINGERS 1,000 ML IV SCH (18:36)
[2017-10-26 21:58] LABS: Glucose,Whole Blood 142 mg/dL (75-99)
[2017-10-26 23:42] LABS: Glucose,Whole Blood 136 mg/dL (75-99)
--- NOTE | 2017-10-27 00:24 | P.PN ---
Subjective Progress Note Date: 10/26/17 Principal diagnosis: Sepsis 52-year-old male has a long-standing history of diabetes mellitus type 2 poorly controlled and history of a prior diabetic foot ulceration to the right foot which resulted in a great toe amputation. The patient is been having some difficulties with his left ankle and following with the orthopedic surgeon. Because of some discomfort at the joint he was measured and given a new bracing device for the foot and ankle. However grommet on the dorsum of the foot resulted in a bit of an ulcer and he was concerned and sought care in the office. The patient had difficulty making the appointment because of the weather and has significant distance from work to the office and reschedule. When he came to the office earlier this week the ulceration had healed and he was feeling better but was still having some swelling to the ankle area. He had no fever or chills at the time of presentation to the office, but did have the swelling to the ankle area for which she had a specialty boot that have been designed that he was not wearing that day. He however presents to the emergency center because of the sudden onset of inability to bear weight to the ankle because of the amount of pain that he started to have. Shortly thereafter he became febrile and has had a rapid decline in his status with evidence of sepsis and presentation to the intensive care unit. The case is discussed with the field insurance sales manager as well as the orthopedic foot and ankle specialist. Given his rapid decline in status he'll go to the operating room this afternoon. The patient is acutely ill with fever chills generalized weakness and malaise and some alteration of his mental status 10/13/2017 patient remains in intensive care unit with ongoing sepsis. Appears to have acute lung injury and also has an elevation of his creatinine likely with an acute renal injury also occurring from his sepsis. Laboratories revealed evidence of staph aureus await final susceptibility. Follow blood cultures in process reasonable cultures are positive. Patient continues to have some ongoing fevers and is admitted of nausea with the response to Zofran. He is still in a warm flushed phase of sepsis and hopefully now that he has been resuscitated will have further improvement of his status. 10/14/2017 patient does have some improvement today. He is not hypotensive not requiring vasopressors but is still on high flow oxygen for his acute lung injury. He has had fevers but down to 99.9 still feels poorly and has significant pain of the left foot and ankle area. 10/15/2017 the patient had deterioration of his respiratory status last night with his acute lung injury and developing early ARDS. He required intubation with sedation and mechanical ventilation. With improved sedation he is quite comfortable today and is synchronous with the vent with adequate oxygenation and improved blood gas. The patient is quite comfortable at this time and receiving tube feeds for his nutritional needs. Fever and leukocytosis are trending down 10/16/2017 is noted the patient remains ventilated as well as with intubation and sedation. He is quite comfortable today. Has been taking back to the operating room for further evaluation of the medial aspect of the right ankle, some infected bone was debrided but no further extensive pockets of purulence were found. Wound VAC applied. 10/17/2017 patient has had a weaning trial today but it was not successful in counseling. Remains intubated sedated and mechanically ventilated. He does to do quite comfortable. Wound vacs are in place after the debridement of yesterday to the left foot. Fever has trended down and he is hemodynamically stable 10/18/2017 the patient had an attempt for a weaning trial but this however did not go well the patient became significantly hypertensive. With multiple medications this is now settled. Today the wound vacs will be changed further care will be given. Is much more calm this afternoon and hopefully further weaning trials will go well over the next few days. The fever has resolved and there is now a negative blood culture. 2017 patient remains in ICU intubated sedated and paralyzed due to the ARDS which is resulting in half-way respiratory failure. 10/22/2017 reveals the patient to have a slightly improved ventilatory status he is down to 55% FiO2 and PEEP is at 12. He has been evaluated by Dr. Zepeda for tracheostomy and PEG tube placement in the near future. The patient seems to be quite comfortable and with the current sedation and paralysis. Ventilating well 10/23/2017 patient is post-tracheostomy and PEG tube placement today.the patient is being readied for transition to a ventilator facility. 10/24/2017 patient is comfortable on current level of sedation. Ongoing attempts for reduction of level of sedation and ventilation support her in process. No new wounds. 10/25/2017 patient now with some improvement in that the sedation has been discontinued and has not caused elevated BP or respirations as in the last few days.he has a sedation weaned through the day he opened eyes, tracked the observers and followed commands.he even smiled for the observer. 10/26/2017 was improving today but developed tracheal occlusion and required change of trach now doing much better. Objective - Vital Signs Vital signs: Vital Signs Temp 99.7 F H 10/26/17 20:00 Pulse 82 10/27/17 00:04 Resp 28 H 10/26/17 23:00 BP 138/60 10/26/17 23:00 Pulse Ox 97 10/26/17 23:00 Intake & Output 10/26/17 10/26/17 10/27/17 06:59 18:59 06:59 Intake Total 480 340.000 80 Output Total 1055 955 270 Balance -575 -615.000 -190 Weight 151.7 kg 151.7 kg Intake: IV 340 240 80 0.9 NS 60 Lactated Ringers 1,000 ml 240 180 80 @ 20 mls/hr IV .Q24H [facility] Rx#:[id number] Potassium Chloride 10 meq 100 In Water For Injection 1 100ml.bag @ 100 mls/hr IVPB Q1H [facility] Rx#: [id number] Intake, IV Titration 100.000 Amount Clevidipine Butyrate 25 0 mg In Empty Bag 1 bag @ 1 MG/HR 2 mls/hr IV .Q24H [facility] Rx#:[id number] Propofol 1,000 mg In 100.000 Empty Bag 1 bag @ Per Protocol IV .Q0M [facility] Rx#: [id number] Tube Feeding 110 0 Other 30 Output: Urine 1055 955 270 Other: Voiding Method Indwelling Catheter Indwelling Catheter Indwelling Catheter # Bowel Movements 0 ABP, PAP, CO, CI - Last Documented Arterial Blood Pressure 137/80 - Exam 52-year-old male presents to Hospital feeling acutely ill found to have evidence of fever and then rapidly developed sepsis, HEENT: Anicteric conjunctiva are pink and moist nasal mucosa grossly intact without significant lesions, sedation now removed, tracheostomy intact without bleeding Neck: The neck is supple without significant lymphadenopathy or thyromegaly. Lungs: Good bilateral air entry with harsh breath sounds Heart: regular with an audible S1 and S2 soft S4 There is no significant murmur click or rub, PMI was nondisplaced. Abdomen: Obese Positive bowel sounds soft and nontender without palpable masses or organomegaly. There was no guarding or rebound. Extremities: The upper extremities have excellent pulses they are symmetric, no significant petechiae or telangiectasia. No splinter hemorrhages were noted. Right lower extremity has evidence of the prior great toe amputation which is well healed. Left lower extremity reveals evidence of the surgical incisions with silver dressings in place. There is still some swelling but the extensive swelling at the ankle has started to improve. There is no inguinal lymphadenopathy. Neuro: no longer sedated following commands - Labs CBC & Chem 7: 10/26/17 04:30 10/26/17 15:52 Labs: Abnormal Lab Results - Last 24 Hours (Table) 10/26/17 10/26/17 10/26/17 Range/Units 03:09 04:30 04:30 WBC 12.6 H (3.8-10.6) k/uL RBC 3.48 L (4.30-5.90) m/uL Hgb 9.8 L (13.0-17.5) gm/dL Hct 30.9 L (39.0-53.0) % Plt Count 547 H (150-450) k/uL Neutrophils # 10.1 H (1.3-7.7) k/uL ABG pCO2 (35-45) mmHg ABG pO2 (83-108) mmHg ABG HCO3 (21-25) mmol/L ABG Total CO2 (19-24) mmol/L ABG O2 Saturation (94-97) % Sodium 146 H (137-145) mmol/L Carbon Dioxide 32 H (22-30) mmol/L BUN 28 H (9-20) mg/dL POC Glucose (mg/dL) 104 H (75-99) mg/dL 10/26/17 10/26/17 10/26/17 Range/Units 05:18 10:55 15:28 WBC (3.8-10.6) k/uL RBC (4.30-5.90) m/uL Hgb (13.0-17.5) gm/dL Hct (39.0-53.0) % Plt Count (150-450) k/uL Neutrophils # (1.3-7.7) k/uL ABG pCO2 48 H 51 H (35-45) mmHg ABG pO2 82 L (83-108) mmHg ABG HCO3 32 H 32 H (21-25) mmol/L ABG Total CO2 34 H 33 H (19-24) mmol/L ABG O2 Saturation 97.4 H (94-97) % Sodium (137-145) mmol/L Carbon Dioxide (22-30) mmol/L BUN (9-20) mg/dL POC Glucose (mg/dL) 137 H (75-99) mg/dL 10/26/17 10/26/17 10/26/17 Range/Units 18:27 21:56 23:40 WBC (3.8-10.6) k/uL RBC (4.30-5.90) m/uL Hgb (13.0-17.5) gm/dL Hct (39.0-53.0) % Plt Count (150-450) k/uL Neutrophils # (1.3-7.7) k/uL ABG pCO2 (35-45) mmHg ABG pO2 (83-108) mmHg ABG HCO3 (21-25) mmol/L ABG Total CO2 (19-24) mmol/L ABG O2 Saturation (94-97) % Sodium (137-145) mmol/L Carbon Dioxide (22-30) mmol/L BUN (9-20) mg/dL POC Glucose (mg/dL) 155 H 142 H 136 H (75-99) mg/dL Laboratory Results WBC 12.6 k/uL (3.8-10.6) H 10/26/17 04:30 RBC 3.48 m/uL (4.30-5.90) L 10/26/17 04:30 Hgb 9.8 gm/dL (13.0-17.5) L 10/26/17 04:30 Hct 30.9 % (39.0-53.0) L 10/26/17 04:30 MCV 88.7 fL (80.0-100.0) 10/26/17 04:30 MCH 28.1 pg (25.0-35.0) 10/26/17 04:30 MCHC 31.6 g/dL (31.0-37.0) 10/26/17 04:30 RDW 14.0 % (11.5-15.5) 10/26/17 04:30 Plt Count 547 k/uL (150-450) H 10/26/17 04:30 Neutrophils % 80 % 10/26/17 04:30 Neutrophils % (Manual) 82 % 10/21/17 06:00 Band Neutrophils % 8 % 10/20/17 05:00 Lymphocytes % 11 % 10/26/17 04:30 Lymphocytes % (Manual) 9 % 10/21/17 06:00 Monocytes % 5 % 10/26/17 04:30 Monocytes % (Manual) 5 % 10/21/17 06:00 Eosinophils % 2 % 10/26/17 04:30 Eosinophils % (Manual) 3 % 10/20/17 05:00 Basophils % 1 % 10/26/17 04:30 Basophils % (Manual) 1 % 10/20/17 05:00 Metamyelocytes % 4 % 10/20/17 05:00 Myelocytes % 4 % 10/21/17 06:00 Neutrophils # 10.1 k/uL (1.3-7.7) H 10/26/17 04:30 Neutrophils # (Manual) 13.45 k/uL (1.3-7.7) H 10/21/17 06:00 Lymphocytes # 1.4 k/uL (1.0-4.8) 10/26/17 04:30 Lymphocytes # (Manual) 1.48 k/uL (1.0-4.8) 10/21/17 06:00 Monocytes # 0.7 k/uL (0-1.0) 10/26/17 04:30 Monocytes # (Manual) 0.82 k/uL (0-1.0) 10/21/17 06:00 Eosinophils # 0.2 k/uL (0-0.7) 10/26/17 04:30 Eosinophils # (Manual) 0.53 k/uL (0-0.7) 10/20/17 05:00 Basophils # 0.1 k/uL (0-0.2) 10/26/17 04:30 Basophils # (Manual) 0.18 k/uL (0-0.2) 10/20/17 05:00 Metamyelocytes # (Man) 0.70 k/uL (0) H 10/20/17 05:00 Myelocytes # (Manual) 0.66 k/uL (0) H 10/21/17 06:00 Nucleated RBCs 0 /100 WBC (0-0) 10/21/17 06:00 Manual Slide Review Performed 10/21/17 06:00 Toxic Granulation Present 10/20/17 05:00 Large Platelets Present 10/21/17 06:00 Polychromasia Present 10/21/17 06:00 Hypochromasia Slight 10/25/17 04:40 ESR 25 mm/hr (0-15) H 10/12/17 07:29 Sample Site rrad 10/26/17 10:55 ABG pH 7.41 (7.35-7.45) 10/26/17 10:55 ABG pCO2 51 mmHg (35-45) H 10/26/17 10:55 ABG pO2 82 mmHg (83-108) L 10/26/17 10:55 ABG HCO3 32 mmol/L (21-25) H 10/26/17 10:55 ABG Total CO2 33 mmol/L (19-24) H 10/26/17 10:55 ABG O2 Saturation 96.2 % (94-97) 10/26/17 10:55 ABG Base Excess 7.1 mmol/L 10/26/17 10:55 Cr Test Yes 10/26/17 10:55 ABG Lactic Acid 1.0 mmol/L (0.5-1.6) 10/12/17 18:06 FiO2 40 % 10/26/17 10:55 Sodium 146 mmol/L (137-145) H 10/26/17 04:30 Potassium 4.0 mmol/L (3.5-5.1) 10/26/17 15:52 Chloride 105 mmol/L (98-107) 10/26/17 04:30 Carbon Dioxide 32 mmol/L (22-30) H 10/26/17 04:30 Anion Gap 9 mmol/L 10/26/17 04:30 BUN 28 mg/dL (9-20) H 10/26/17 04:30 Creatinine 0.70 mg/dL (0.66-1.25) 10/26/17 04:30 Est GFR (CKD-EPI)AfAm >90 (>60 ml/min/1.73 sqM) 10/26/17 04:30 Est GFR (CKD-EPI)NonAf >90 (>60 ml/min/1.73 sqM) 10/26/17 04:30 Glucose 90 mg/dL (74-99) 10/26/17 04:30 POC Glucose (mg/dL) 136 mg/dL (75-99) H 10/26/17 23:40 POC Glu Milk Re[employer] Truck ID Jose Angel Goins 10/26/17 23:[address] Glu mg/dL 214 10/12/17 07:29 Hemoglobin A1c 9.1 % (4.0-6.0) H 10/12/17 07:29 Plasma Lactic Acid Ron 1.5 mmol/L (0.7-2.0) 10/11/17 21:10 Uric Acid 5.6 mg/dL (3.5-8.5) 10/11/17 21:10 Calcium 9.9 mg/dL (8.4-10.2) 10/26/17 04:30 Phosphorus 4.2 mg/dL (2.5-4.5) 10/26/17 04:30 Magnesium 2.1 mg/dL (1.6-2.3) 10/26/17 04:30 AST 96 U/L (17-59) H 10/13/17 19:55 ALT 58 U/L (21-72) 10/13/17 19:55 C-Reactive Protein 45.1 mg/L (<10.0) H 10/11/17 21:10 Urine Color Yellow 10/15/17 11:30 Urine Appearance Clear (Clear) 10/15/17 11:30 Urine pH 6.0 (5.0-8.0) 10/15/17 11:30 Ur Specific [place] 1.018 (1.001-1.035) 10/15/17 11:30 Urine Protein 1+ (Negative) H 10/15/17 11:30 Urine Glucose (UA) 3+ (Negative) H 10/15/17 11:30 Urine Ketones Negative (Negative) 10/15/17 11:30 Urine Blood Small (Negative) H 10/15/17 11:30 Urine Nitrite Negative (Negative) 10/15/17 11:30 Urine Bilirubin Negative (Negative) 10/15/17 11:30 Urine Urobilinogen <2.0 mg/dL (<2.0) 10/15/17 11:30 Ur Leukocyte Esterase Negative (Negative) 10/15/17 11:30 Urine RBC <1 /hpf (0-5) 10/15/17 11:30 Urine WBC 3 /hpf (0-5) 10/15/17 11:30 Urine Mucus Rare /hpf (None) H 10/15/17 11:30 Blood Type O Positive 10/21/17 13:30 Blood Type Recheck No 10/21/17 13:30 Antibody Screen NEGATIVE 10/21/17 13:30 Spec Expiration Date 10/24/2017 - 232910/21/17 13:30 Microbiology 10/17/17 05:50 Blood Blood Culture - Final No Growth after 144 hours 10/17/17 04:07 Blood Blood Culture - Final No Growth after 144 hours 10/15/17 05:15 Sputum Gram Stain - Final 10/15/17 05:15 Sputum Sputum Culture - Final Jayne albicans 10/13/17 08:45 Blood Blood Culture Gram Stain - Final 10/13/17 08:45 Blood Blood Culture - Final Staphylococcus aureus 10/12/17 19:48 Ankle - Left Anaerobic Culture - Final 10/12/17 19:48 Ankle - Left Anaerobic Culture - Final 10/13/17 07:25 Blood Blood Culture Gram Stain - Final 10/13/17 07:25 Blood Blood Culture - Final Staphylococcus aureus 10/12/17 19:48 Ankle - Left Gram Stain - Final 10/12/17 19:48 Ankle - Left Wound Culture - Final Staph aureus 10/12/17 19:48 Ankle - Left Gram Stain - Final 10/12/17 19:48 Ankle - Left Wound Culture - Final Staphylococcus aureus 10/12/17 09:27 Synovial Fluid Gram Stain - Final 10/12/17 09:27 Synovial Fluid Body Fluid Culture - Final Staphylococcus aureus 10/13/17 07:25 Blood Blood Culture - Final 10/13/17 08:45 Blood Blood Culture - Final 10/11/17 21:15 Blood Blood Culture Gram Stain - Final 10/11/17 21:15 Blood Blood Culture - Final Staphylococcus aureus 10/11/17 21:15 Blood Blood Culture - Final Assessment and Plan (1) Septic arthritis of left ankle Narrative/Plan: 52-year-old male presents the emergency center with inability to bear weight to his left ankle. The patient has had some new orthotic boot manufactured in a developed a small ulcer on the dorsum of the left foot. This apparently was from a grommet from an orthotic. This was completely healed and was evaluated but was still having ongoing difficulties with ankle area. Is actively following up with orthopedic foot and ankle. The patient does have a boot that was designed that he was not wearing when he came to the office and understands it is important that he wears this when he is at work to protect his ankle from the Charcot changes. Patient however now has high-grade fever chills leukocytosis and laboratories: Positive blood culture with gram-positive cocci. The patient did have aspiration per orthopedic ankle grossly purulent material was found. Originally the plan was to go to the operating him in the morning but as the patient felt worsening sepsis he is no scheduled operating room this afternoon for the incision and drainage of this abscess. Deep cultures and pathology will also be sent. Antibiotic therapy is altered from vancomycin to daptomycin. In hopes to have a more rapid bacteriocidal activity given his rapidly declining status. Enhance glucose control be important part of his healing. Leukocytosis record related to his current sepsis. There is evidence of possible culture and he will require follow blood cultures in the morning. He was monitored for any persistence of his bacteremia. There will be a coordinated effort between orthopedic ankle and infectious disease as to the care at discharge. 10/13/2017 reveals the patient still needs intensive care unit after surgery with ongoing sepsis. Continues to have fever and leukocytosis and difficulties with acute lung injury and now elevated creatinine to 2.0. Patient continues to be resuscitated and has had some improvement but minimal at this point in time. He will continue with maneuvers to improve his fever maintain his hydration and antibiotic therapy continues with daptomycin for both staph aureus and MRSA, blood culture and aspirate from the ankle are still showing staph aureus final susceptibility is pending. Patient aware that if he improves he will be receiving a jg completed a long course of IV antibiotic therapy for this extensive infection. Leukocytosis directly related to the sepsis 10/14/2017 the patient remains in intensive care unit, high flow oxygen is being utilized for his acute lung injury. His creatinine has increased further is now 2.0. Urine output is adequate. He is symptomatically stable is having difficulties with shortness of breath. Pain at the foot and ankle is predictable but the significant swelling history improving after surgical incision and drainage. Ulceration is treated with a medical history dressing. If there is no further marked improvement by tomorrow the patient will likely go back to the operating him for further incision and drainage to the site. The case is discussed with the orthopedic surgeon. 10/15/2017 the patient is noted had a decline of his status and his required intubation with sedation mechanical ventilation and is now much more comfortable. His pulmonary status is improved with the intervention. He has not requiring vasopressor therapy. We'll do blood cultures verified MSSA and antibiotic therapy was transitioned to high dose cefazolin. The patient is evaluated in conjunction with the orthopedic surgeon and the plan is for the patient to have further debridement of the ankle tomorrow to ensure there is complete drainage of any abscess at that joint site given the progression of his underlying illness. Fortunately he has not hemodynamic stable and is having improvement of his leukocytosis. We'll expect as a sepsis improves his pulmonary injury will improve also. His creatinine peaked at 2.10 now down to 2.0 and nephrology has evaluated. Follow blood cultures to ensure clearance of his bacteremia. Echocardiogram without evidence of vegetations. Is not the case is discussed with the orthopedic surgeon as well as the patient' s . 10/16/2017 the patient's been taking to the operating room today for further debridement of the left ankle. Some necrotic bone was debrided but no further large pockets of abscess were seen. Wound vacs are applied. We'll continue his high-dose antibiotic therapy for his MSSA infection from the septic arthritis left ankle. There are several evidences of improvement today, still requires no vasopressor therapy. We'll expect as he starting to improve we need to start in the next day or so. Once he is evidence of clearance of his bacteremia will need IV access placed for his long-term IV antibiotic therapy. 10/17/2017 patient is hemodynamically stable without acute no difficulties today. He over did not do well with a weaning trial. Will be tried on a daily basis as per the extension service supervisor. He is hemodynamic stable and his adequate urinary output. We'll continue high-dose cefazolin and supportive care. It is likely that the wound vacs removed tomorrow with further evaluation of the ankle wounds at that time. Supportive care continues he's had a slight improvement of his creatinine and his sodium is improving. 10/18/2017 the patient remains medically stable and that her vasopressor therapy. Insulin drip is reduced. He did not do well with weaning trial today with significant hypertensive response. With the medications is better at this time. Acute renal failure has resolved leukocytosis is trending to improvement. And there is no negative blood culture from October 17. If the patient improves we'll transition to alternative IV access was for a dual lumen PICC line to be placed this will help us transition to his outpatient intravenous antibiotic therapy when he is improved. The wound VAC is removed at this point in time. Saline moistened opticell silver is applied without difficulty. This will be changed every other day. Pulmonary critical care will continue to move toward extubation. 10/21/2017 patient continues to have respiratory failure 10/21/2017 patient continues to have respiratory failure with ongoing intubation sedation and mechanical ventilation he is hemodynamically stable. Remains on insulin drip. Vital respiratory failure the patient will undergo tracheostomy and PEG tube placement later this week. 10/22/2017 patient remains intubated sedated paralyzed and mechanically ventilated. Tracheostomy is to happen soon. His MSSA sepsis is under control this point in time is developed ARDS and will require long-term weaning. Fever and leukocytosis have improved no other infections are noted local wound care to the ankle reveals evidence of the improving surgical wounds. 10/23/2017 the patient is now status Constantly ongoing plans for long-term weaning. Local wound care is with silver dressing.as infection is improving there will Be a possibility for negative pressure therapy system. Currently plan 6 weeks of intravenous antibiotic therapy for his MSSA sepsis. Pulmonary is following regarding his ARDS. Remains on an insulin drip through most the day. 10/24/2017 patient continues for the slow weaning process. Goal of the next 48 hours as further reduction of his propofol requirements so that he will become a candidate for long-term vent facility for his long-term weaning that will be required. The extensive infection to the left ankle area has been surgically debrided on 2 occasions and the leg is much improved. Bactrim has been resolved for quite some time. Is moderate ARDS and showing some slight improvement to the day today. Plan intravenous antibiotic therapy until 201710/25/2017 the patient has had further improvement today. Sedation has been held he's much And he is now much more awake and following commands. He has moderate ARDS is showing improvement and that his FiO2 is down to 40% his PEEP is 8. Patient is progressing well and likely will be able to go to a ventilator facility in the near future. He has noted his antimicrobial therapy continues through 11/28/2017 for his MSSA sepsis and septic arthritis of the left ankle Charcot joint. Local wound care continues with the Optisol silver with marked improvement to the site. 10/26/2017 had trach site problems earlier now resolved and is returning to better vent settings and sedation wearing off and following commands and smiling.Complete course of IVABX for the MSSA sepsis form septic arthritis await [facility] Current Visit: Yes Status: Acute Code(s): M00.9 - PYOGENIC ARTHRITIS, UNSPECIFIED SNOMED Code(s): 06820444 (2) Sepsis Current Visit: Yes Status: Acute Priority: Medium Code(s): A41.9 - SEPSIS , UNSPECIFIED ORGANISM SNOMED Code(s): 65060329 (3) Poorly controlled type 2 diabetes mellitus with complication Current Visit: Yes Status: Chronic Code(s): E11.8 - TYPE 2 DIABETES MELLITUS WITH UNSPECIFIED COMPLICATIONS; E11.65 - TYPE 2 DIABETES MELLITUS WITH HYPERGLYCEMIA SNOMED Code(s): 26914374
[2017-10-27] MEDS: MORPHINE SULFATE 4 MG/ML SYRINGE IVP PRN ×2 (02:41→12:10)
[2017-10-27 03:05] LABS: Glucose,Whole Blood 166 mg/dL (75-99)
[2017-10-27] MEDS: IPRATROPIUM-ALBUTEROL 3 ML NEB INHALATION SCH ×6 (03:47→23:40)
[2017-10-27] MEDS: PROPOFOL 1,000 MG in EMPTY BAG 1 BAG IV SCH (03:59)
[2017-10-27 04:52] LABS: HCT 30.2 % (39.0-53.0); HGB 9.3 gm/dL (13.0-17.5); Hypochromasia Slight; MCH 27.2 pg (25.0-35.0); MCHC 30.6 g/dL (31.0-37.0); MCV 88.9 fL (80.0-100.0); Mean Platelet Volume 8.5; Platelet Count 570 k/uL (150-450); RDW 14.2 % (11.5-15.5); WBC 10.7 k/uL (3.8-10.6)
[2017-10-27 04:59] LABS: Glucose,Whole Blood 164 mg/dL (75-99)
[2017-10-27] MEDS: INSULIN ASPART 100 UNIT/ML 1 ML 10 ML VIAL SQ SCH ×4 (05:00→23:27)
[2017-10-27] MEDS: METOCLOPRAMIDE 5 MG/ML 2 ML VIAL IVP SCH ×4 (05:00→23:29)
[2017-10-27 05:11] LABS: Anion Gap 11 mmol/L; Blood Urea Nitrogen 33 mg/dL (9-20); Calcium 9.8 mg/dL (8.4-10.2); Carbon Dioxide 29 mmol/L (22-30); Chloride 106 mmol/L (98-107); Glucose 167 mg/dL (74-99); Magnesium 1.9 mg/dL (1.6-2.3); Phosphorus 4.4 mg/dL (2.5-4.5); Potassium 3.8 mmol/L (3.5-5.1); Sodium 146 mmol/L (137-145)
[2017-10-27 05:41] LABS: ABG Base Excess 6.9 mmol/L; ABG HCO3 31 mmol/L (21-25); ABG PCO2 46 mmHg (35-45); ABG PH 7.44 (7.35-7.45); ABG PO2 98 mmHg (83-108); ABG TCO2 33 mmol/L (19-24)
[2017-10-27] MEDS ORDERED: Magnesium Replacement Protocol 1 EACH MISC MISCELLANE PRN (06:20)
[2017-10-27] MEDS ORDERED: Potassium Replacement Protocol 1 EACH MISC MISCELLANE PRN (06:20)
[2017-10-27] MEDS: LEVOTHYROXINE IVP 100 MCG/5 ML VIAL IV SCH (06:55)
[2017-10-27] MEDS: MAGNESIUM SULFATE-D5W PMX 1 GM in DEXTROSE/WATER 1 100ML.BAG IVPB SCH ×2 (06:57→08:01)
[2017-10-27] MEDS ORDERED: POTASSIUM BICARBONATE/CIT AC 20 MEQ TABLET.EFF NG-TUBE SCH ×2 (07:00→19:00)
--- NOTE | 2017-10-27 07:07 | XR ---
EXAMINATION TYPE: XR chest 1V portable DATE OF EXAM: 10/27/2017 HISTORY: ICU, Intubation, trach swap. REFERENCE: Previous study dated 10/26/2017. FINDINGS: A tracheostomy tube is in place. Its tip overlies the tracheal air column in this single fr ontal projection. There continues be bibasilar airspace disease. This has improved slightly. Heart remains enlarged. Th ere are small effusions. IMPRESSION: SLIGHT IMPROVEMENT IN THE AERATION OF BOTH LUNGS.
[2017-10-27] MEDS: HEPARIN SODIUM,PORCINE 5,000 UNIT/ML 1 ML VIAL SQ SCH ×3 (07:59→23:21)
[2017-10-27] MEDS: SENNOSIDES-DOCUSATE SODIUM 1 EACH TAB PO SCH ×2 (08:01→20:14)
[2017-10-27] MEDS: FUROSEMIDE 10 MG/ML 2 ML VIAL IV SCH (08:02)
[2017-10-27] MEDS: CHLORHEXIDINE GLUCONATE 15 ML CUP MUCOUS MEM SCH ×2 (08:02→20:13)
[2017-10-27] MEDS: ceFAZolin IN SWFI 2 GM/20 ML SYRINGE IVP SCH ×3 (08:10→23:21)
[2017-10-27] MEDS: PANTOPRAZOLE 40 MG/10 ML VIAL IV SCH (08:16)
--- NOTE | 2017-10-27 08:38 | P.PN ---
Subjective Progress Note Date: 10/27/17 Principal diagnosis: Sepsis and left foot infection with mental status changes Progress note dated 10/19/2017 This is a 52-year-old male with acute hypoxemic respiratory failure secondary to sepsis. He was admitted with a diagnosis of Septic Arthritis Involving the Left Ankle and He Status Post Left Ankle Irrigation and Debridement. He's Postop Day #7. He Wanted Month for Another Irrigation and Debridement, on 10/16 and Is Postop Day #3. Today We Did a Daily Eruption of Sedation. Unfortunately He Did Very Poorly. He Was Not Ready for a Spontaneous Breathing Trial. The patient has a history of acute severe sepsis with positive blood cultures for methicillin sensitive staph aureus, altered mental status acute hypoxemic and hypercapnic respiratory failure with mild ARDS, diabetes mellitus peripheral neuropathy chronic wounds and ulcerations of lower extremities Charcot joints of morbid obesity hypertension hyperlipidemia hypothyroidism acute kidney injury and hypernatremia. I had a long talk with the family today. The understand that by mid next week if the patient does not show improvement, would likely send patient for a tracheostomy and PEG tube. Progress note dated 10/20/2017 A 52-year-old male with a history of acute hypoxemic respiratory failure secondary to sepsis. The patient was admitted with a diagnosis of septic arthritis involving the left ankle and he is status post left ankle irrigation and debridement, postop day #8. He also had an irrigation and debridement a second time and for that when he is postop day #4. The patient had a daily eruption of sedation yesterday and unfortunately did very poorly and again today he had daily eruption of sedation and again did very poorly. His respiratory rate was quite high. Heart rate was very high. The patient went very high. He was not responsive. The patient does not follow simple commands. He may eventually need a tracheostomy and PEG tube placement. I did have a long discussion with his yesterday. In addition, the patient is positive blood culture for methicillin sensitive staph aureus mental status changes acute hypoxemic and hypercapnic respiratory failure mild ARDS based on a PaO2/FiO2 ratio, diabetes peripheral neuropathy chronic wounds and ulcerations of lower extremities Charcot joints morbid obesity hypertension hyperlipidemia hypothyroidism acute kidney injury and hypernatremia. I did mention tracheostomy and PEG tube yesterday with the . Again, the patient has shown no significant improvement over the last 48 hours. Chest x-ray is unchanged. Microbiology is reviewed. White count 17.5, hemoglobin 10.4 platelet count normal. Arterial blood gases show a PaO2 of 74 a PaCO2 of 38 and pH is 7.44. Sodium is 139 potassium 3.8 chloride is 105 CO2 23 BUN and creatinine 24 and 0.78 respectively. The patient's vent settings are the volume assist control mode, rate of 26, tidal volume 500, FiO2 50% and PEEP of 8. The patient's currently on propofol at 50 mics per kilogram per minute, Cleviprex at 21 mg per hour and a D5W IV at KVO. The patient is receiving vital high protein at 20 with a goal of 20. Progress note dated 10/21/2017 52-year-old male with a history of acute hypoxemic respiratory failure secondary to sepsis. The patient was admitted with a diagnosis of septic arthritis involving the left ankle many status post left ankle irrigation and debridement, postop day #9. He also had a second irrigation and he is postop day #5 on that one. Unfortunately, over the weekend, the patient has made no progress in yesterday because of worsening respiratory status, the patient had to be paralyzed. He was given Nimbex 10 mg IV and started on a Nimbex drip. We 'll do [id number] monitoring. Also, yesterday we had issues with his heart rate and blood pressure. We had added some labetalol to his Cleviprex. Finally , the patient's oxygenation worsened suggesting is acute respiratory distress syndrome has worsened. Currently on 70% FiO2 and 12 of PEEP. I did have a long discussion with the on Saturday. I explained that he probably end up with a tracheostomy and PEG tube placed. I will ask the thoracic surgeon about that today. Blood cultures are positive multiple times for methicillin sensitive staph aureus. The patient does have a history of Charcot joints morbid obesity hypertension hyperlipidemia hypothyroidism acute kidney injury and hypernatremia. Currently, the patient's vent settings are the assist control mode rate of 26 tidal volume 500 FiO2 70% PEEP of 12 blood gases show a PaO2 of 69 and a PaCO2 of 53 and a pH 7.32. The patient is on Nimbex at 3 mics per kilogram per minute, propofol 60 mikes per kilogram per minute, Cleviprex at 14 mg an hour, insulin 16 units an hour saline IV at 20 mL an hour and vital high protein and rate of 20 with a goal of 20 mL per hour. Needless to say, the patient's very critically ill. Progress note dated 10/22/2017 52-year-old male with a history of acute hypoxemic respiratory failure secondary to sepsis. The patient was admitted initially admitted with a diagnosis of septic arthritis involving the left ankle and he status post left ankle irrigation and debridement, postop day #10 he had a second procedure done and on that procedure he is postop day #6. The patient has made no progress on the ventilator. I did ask the thoracic surgeon to see him for a tracheostomy and PEG tube placement. She oxygenation and dyssynchronous with the ventilator , the patient was paralyzed. We've also some additional blood pressure control. His blood pressure has been high despite maximal doses of Cleviprex and labetalol IV. Anyway, the patient is scheduled for a tracheostomy and PEG tube on Saturday. This been no changes in his status since that time. The patient has a history of multiple positive blood cultures for methicillin sensitive staph aureus. He does have a history of Charcot joints, morbid obesity, hypertension, hyperlipidemia, hypothyroidism, acute kidney injury, and hypernatremia. Currently, the patient's on the volume assist control modality, rate is 26 tidal volume is 500 FiO2 70% PEEP of 12. Arterial blood gases show a PaO2 of 139 a PaCO2 40 and a pH of 7.36. If the FiO2 we dropped down to 55%. The patient receiving a saline IV at 20 mL an hour propofol 60 mikes per kilogram per minute insulin drip at 13 units per hour Nimbex at 4 mics per kilogram per minute vital high protein at 20 with a goal of 20 mL an hour and the Cleviprex is off. Sodium is 141 potassium 4.4 chloride 105 CO2 27 and BUN and creatinine is 27 0.79. CBC is pending Chest x-ray shows diffuse infiltrates with possible small effusions. Endotracheal tube in good position. Progress note dated 10/23/2017 52-year-old male with a history of acute hypoxemic respiratory failure sepsis and acute respiratory distress syndrome. The patient was initially admitted with a diagnosis of septic arthritis involving the left ankle and he status post left ankle irrigation and debridement, postop day #11. In addition, he had a second irrigation/debridement and he is postop day #7 on that procedure. The patient has made no progress in regards to weaning and extubation. The patient has been dyssynchronous on the ventilator and required heavy sedation and paralysis. He is going to have a tracheostomy and PEG tube placement today. I've had ongoing discussions with his . Also, we had issues with blood pressure control is required both Cleviprex and IV labetalol for that. He does have positive blood cultures for methicillin sensitive staph aureus. Being treated for that. He has a history of Charcot joints morbid obesity hypertension hyperlipidemia hypothyroidism acute kidney injury and hypernatremia. The patient's currently on the ventilator with the same settings. He is receiving a saline IV at 20 mL an hour propofol 70 mics per kilogram per minute and Nimbex at 4 mics per kilogram per minute. His arterial blood gases show a PaO2 of 97 a PaO2 of 47 and a pH of 7.38. The patient's chest x-ray shows worsening bilateral infiltrates. Labs x-rays a medications are all reviewed. Progress note dated 10/24/2017 52-year-old male with a history of acute hypoxemic respiratory failure sepsis and acute respiratory distress syndrome. By PF ratio, the patient has moderate ARDS. The patient was initially admitted with a diagnosis of septic arthritis involving the left ankle and he status post left ankle irrigation and debridement postop day #12 and a second procedure done similarly, postop day # 8. The patient is postop day #1 status post tracheostomy and PEG tube placement. He is currently off paralysis. Tube feeds can resume at 3:00 today. The patient has a history of methicillin sensitive staph aureus sepsis. In addition, the patient has Charcot joints morbid obesity hypertension hyperlipidemia hypothyroidism acute kidney injury and hypernatremia. Currently , he's on the volume assist control mode rate of 26, tidal volume 500, FiO2 55% to be dropped to 40% and PEEP of 12. Blood gases show a PaO2 of 1:30 a PaCO2 of 48 and a pH of 7.4. The patient is on saline IV at KVO, propofol 70 mics per kilogram per minute insulin drip at 6 units an hour and tube feeds are on hold but will resume at 3:00 today. Again tracheostomy and PEG tube placement on October 23. The plan today will be to slowly wean the propofol. We'll see for can start moving the patient reports liberation from mechanical ventilation. We will drop the FiO2 down to 40%. If his oxygen remained stable, start making drops in PEEP. Progress note dated 10/25/2017 52-year-old male with a history of acute hypoxemic respiratory failure, sepsis, and acute respiratory distress syndrome. The patient down has developed ARDS. He is postop day #13 status post initial debridement and irrigation of left ankle septic arthritis. His second procedure done, postop day #9. He is postop day #2 status post tracheostomy and PEG tube placement. The patient's currently on the ventilator on the volume assist control mode rate of 26 tidal volume 500 FiO2 to be dropped from 50-40% PEEP of 12. Arterial blood gases on the same settings but 50%, show a PaO2 of 132 a PaCO2 47 and a pH of 7.41. The patient's medications include propofol at 30 mics per kilogram per minute, insulin at 6 units per hour, vital high protein at 30 with a goal of 44 and a saline IV at 20. Because of the patient's poor mental status, the patient will have a CT of the brain without contrast and EEG. In addition, the chest x-ray shows bilateral infiltrates consistent with the diagnosis of acute respiratory distress syndrome. The patient's propofol has been weaned down from 70 to 30 mics per kilogram per minute. The patient's overall prognosis is very guarded. Daily conversations with his have been done to let her know about this. She seems understand. I'm hoping that down the patient will show some improvement since having the tracheostomy and PEG tube was done. Progress note dated 10/25/2017 This is a 52-year-old male, with a history of acute hypoxemic respiratory failure, sepsis, acute respiratory distress syndrome. The patient developed ARDS. It started as a left ankle septic arthritis. He's postop day number debridement of that left ankle twice. He's postop day #14 the first time and postop day #10 the second time. He also status post trach and PEG. He was doing very very well. The patient was on the assist control mode rate of 26 tidal volume 500 FiO2 40% PEEP of 8 to be dropped down to PEEP of 5. His blood gases showed a PaO2 of 90 a PaCO2 of 48 and a pH 7.44. I was consistent with a very mild metabolic alkalosis. The patient was getting lactated Ringer's at 20 mL an hour and tube feeds are on hold because of vomiting. I was going to switch him from the current settings volume assist control to pressure support ventilation of 8 and CPAP of 5. After doing that, the patient developed acute respiratory difficulty with cyanosis. He was back. Never lost his rhythm. It happened a second time. Were not sure why. He does have a big difference with previous peak and plateau airway pressures. It could be a kink doesn't tracheostomy tube around the tracheostomy against the wall of the trachea midline mucous plug. Anyway a stat Blood gas and chest x-ray being done. His chest x-rays been stable. His white count is 12.6-year-old woman 9.8 hematocrit 30.9 platelet count 549,000. Sodium is 146 his chlorides is 105 potassium 3.6 and CO2 32. BUN/creatinine was 28 and 0.7. Microbiology has only been positive for methicillin sensitive staph aureus. Progress note dated 10/27/2017 This is a 52-year-old male with a history of acute hypoxemic respiratory failure , sepsis, and acute respiratory distress syndrome. The patient is still on the ventilator but is showing some progress. Yesterday, the patient developed acute respiratory distress, which was caused by a to short tracheostomy tube. The lumen of the tracheostomy tube was being obstructed by the membranous trachea. Dr. Zepeda was kind enough to come in and put an x-ray along tracheostomy tube in which all the problem. The patient is doing much better. On a small amount of propofol. That's to be shut off. He's placed on PSV 8 CPAP of 5 this morning. He should do well. Labs x-rays a medications are all reviewed. He is postop day #15 and #11 for a irrigation and debridement of the left ankle septic arthritis. He is also status post tracheostomy and PEG tube placement. Again doing very well. He is showing significant improvement over the last day or so. He is much more awake and alert. Objective - Vital Signs Vital signs: Vital Signs Temp 98.4 F 10/27/17 08:00 Pulse 84 10/27/17 08:00 Resp 29 H 10/27/17 08:00 BP 166/78 10/27/17 08:00 Pulse Ox 100 10/27/17 08:00 Intake & Output 10/26/17 10/27/17 10/27/17 18:59 06:59 18:59 Intake Total 340.000 510 232.496 Output Total 955 785 535 Balance -615.000 -275 -302.504 Weight 151.7 kg 148.8 kg Intake: IV 240 220 40 0.9 NS 60 Lactated Ringers 1,000 ml 180 220 40 @ 20 mls/hr IV .Q24H [facility] Rx#:[id number] Intake, IV Titration 100.000 100 172.496 Amount Clevidipine Butyrate 25 0 mg In Empty Bag 1 bag @ 1 MG/HR 2 mls/hr IV .Q24H [facility] Rx#:[id number] Magnesium Sulfate-D5w Pmx 100 1 gm In Dextrose/Water 1 100ml.bag @ 100 mls/hr IVPB Q1H [facility] Rx#: [id number] Propofol 1,000 mg In 100.000 100 72.496 Empty Bag 1 bag @ Per Protocol IV .Q0M [facility] Rx#: [id number] Tube Feeding 0 100 20 Other 90 Output: Urine 955 785 535 Other: Voiding Method Indwelling Catheter Indwelling Catheter ABP, PAP, CO, CI - Last Documented Arterial Blood Pressure 137/80 - Exam No acute distress, awake and alert, with a midline tracheostomy tube and a PEG tube HEENT examination is grossly unremarkable. Mucous membranes are moist. Neck supple. Full range of motion. No adenopathy thyromegaly or neck vein distention. Midline tracheostomy tube noted. Cardiovascular examination reveals regular rhythm rate. S1-S2 normal. No S3 or S4. No discernible murmur noted. Lungs reveal diminished breath sounds. Coarse bilateral rhonchi are noted. Breath sounds are equal bilaterally. No crackles. Abdomen soft bowel sounds are heard. No masses or tenderness. PEG tube noted. Extremities are intact. Both lower extremities are wrapped in Geoffrey wraps. Also examination cannot be done. Edema is clearly present though.. Skin is without rash or lesion. Neurologic examination is brief but nonfocal. - Labs CBC & Chem 7: 10/27/17 04:08 10/27/17 04:08 Labs: Abnormal Lab Results - Last 24 Hours (Table) 10/26/17 10/26/17 10/26/17 Range/Units 10:55 15:28 18:27 WBC (3.8-10.6) k/uL RBC (4.30-5.90) m/uL Hgb (13.0-17.5) gm/dL Hct (39.0-53.0) % MCHC (31.0-37.0) g/dL Plt Count (150-450) k/uL ABG pCO2 51 H (35-45) mmHg ABG pO2 82 L (83-108) mmHg ABG HCO3 32 H (21-25) mmol/L ABG Total CO2 33 H (19-24) mmol/L ABG O2 Saturation (94-97) % Sodium (137-145) mmol/L BUN (9-20) mg/dL Glucose (74-99) mg/dL POC Glucose (mg/dL) 137 H 155 H (75-99) mg/dL 10/26/17 10/26/17 10/27/17 Range/Units 21:56 23:40 03:03 WBC (3.8-10.6) k/uL RBC (4.30-5.90) m/uL Hgb (13.0-17.5) gm/dL Hct (39.0-53.0) % MCHC (31.0-37.0) g/dL Plt Count (150-450) k/uL ABG pCO2 (35-45) mmHg ABG pO2 (83-108) mmHg ABG HCO3 (21-25) mmol/L ABG Total CO2 (19-24) mmol/L ABG O2 Saturation (94-97) % Sodium (137-145) mmol/L BUN (9-20) mg/dL Glucose (74-99) mg/dL POC Glucose (mg/dL) 142 H 136 H 166 H (75-99) mg/dL 10/27/17 10/27/17 10/27/17 Range/Units 04:08 04:08 04:58 WBC 10.7 H (3.8-10.6) k/uL RBC 3.40 L (4.30-5.90) m/uL Hgb 9.3 L (13.0-17.5) gm/dL Hct 30.2 L (39.0-53.0) % MCHC 30.6 L (31.0-37.0) g/dL Plt Count 570 H (150-450) k/uL ABG pCO2 (35-45) mmHg ABG pO2 (83-108) mmHg ABG HCO3 (21-25) mmol/L ABG Total CO2 (19-24) mmol/L ABG O2 Saturation (94-97) % Sodium 146 H (137-145) mmol/L BUN 33 H (9-20) mg/dL Glucose 167 H (74-99) mg/dL POC Glucose (mg/dL) 164 H (75-99) mg/dL 10/27/17 Range/Units 05:29 WBC (3.8-10.6) k/uL RBC (4.30-5.90) m/uL Hgb (13.0-17.5) gm/dL Hct (39.0-53.0) % MCHC (31.0-37.0) g/dL Plt Count (150-450) k/uL ABG pCO2 46 H (35-45) mmHg ABG pO2 (83-108) mmHg ABG HCO3 31 H (21-25) mmol/L ABG Total CO2 33 H (19-24) mmol/L ABG O2 Saturation 98.0 H (94-97) % Sodium (137-145) mmol/L BUN (9-20) mg/dL Glucose (74-99) mg/dL POC Glucose (mg/dL) (75-99) mg/dL Assessment and Plan Assessment: Assessment Acute septic arthritis of the left ankle, status post left ankle irrigation with debridement, postoperative day #15 and subsequent irrigation did the debridement, postop day #11 Postop day #4, status post tracheostomy and PEG tube placement. Acute hypoxemic respiratory failure requiring intubation and mechanical ventilation with failure to wean from mechanical ventilation despite daily interruption of sedation and spontaneous breathing trial Failure to wean from mechanical ventilation, with anticipated tracheostomy tomorrow Acute severe sepsis with positive blood cultures for methicillin sensitive Staphylococcus Mental status changes, set secondary to sepsis encephalopathy Moderate ARDS with a PF ratio of 176 Diabetes mellitus with poor sugar control Severe peripheral neuropathy History of chronic wounds and ulcerations of the lower extremities with cellulitis Charcot joints Morbid obesity Hypertension Hyperlipidemia Hypothyroidism Acute kidney injury Hypernatremia Plan: Plan dated 10/19/2017 The patient did have a daily eruption of sedation and a spontaneous breathing trial. His mental status was poor. His heart rate went up quite high with increased respiratory rate and blood pressure. The patient's mental status was poor as I mention that he was not ready for extubation. I did have a long talk with the family. They do understand that the patient may end up requiring a tracheostomy and PEG tube. He'll continue on antibiotics. No additional recommendations are made. Prognosis is poor. We will use Cleviprex for blood pressure control. We will discontinue all the other medications that were being used for blood pressure. She can titrate off of Plavix better. We sedate the patient. We will use a small amount of narcotic. Additional sedation. We'll place the patient back on the mechanical ventilator. We'll resume nutrition. Additional recommendations and suggestions are forthcoming. Plan dated 10/20/2017 Again the patient had a daily eruption of sedation and did very poorly. He was not a candidate for spontaneous breathing trial. He remains on Cleviprex at a relatively higher dose for blood pressure control and propofol. The patient is getting nutrition. I did talk to the yesterday. I let her know that the patient was not doing well and may be headed towards tracheostomy and PEG tube placement. He remains on updrafts every 4 [id number]. Not able to be weaned today. The patient blood pressure 1 of over 200 and his respiratory rate went up over 40 on holding of sedation. Chest x-ray stable. No additional recommendations are made. Prognosis is guarded. And he may end up with a trach and PEG. Critical care time 33 minutes Plan dated 10/21/2017 The patient did miserably over the weekend. Showed no progress with his daily interruption of sedation. The patient had to be paralyzed her. In addition, the patient needed additional blood pressure medication for blood pressure control. We will consult the thoracic surgeon for PEG and tracheostomy tube. Overall prognosis is poor he continues on all appropriate medications. Superflous and unnecessary medications are discontinued. The patient will continue on Nimbex propofol Cleviprex insulin and nutrition Critical care time 37 minutes Plan dated 10/22/2017 The patient continues to do poorly. By P/F criteria, he does have ARDS. The patient's FiO2 though, could be dropped to 55% today. He remains on PEEP of 12. The patient will likely have a tracheostomy and PEG tube done tomorrow. I did speak to the yesterday. She understands prognosis. The patient remained on number different medications including propofol insulin Nimbex. Cleviprex his been weaned off. He's continuing to receive nutrition. Labs and x-rays are reviewed. Again prognosis is very poor. Critical care time 38 minutes Plan dated 10/23/2017 The patient continues to do poorly. The patient will have a tracheostomy PEG tube placed today. We'll keep on the same that settings for now. We will make any FiO2 of PEEP changes at this time. The patient is getting a result of 2 feeds are on hold for the procedure. The patient is receiving saline at 20 mL an hour. The patient's on propofol 70 mics per kilogram per minute and Nimbex at 4 mics per kilogram per minute with [id number] monitoring. His overall prognosis remains poor. The patient has not made any substantial improvement. Chest x-ray today is a bit worse. Additional recommendations and suggestions are forthcoming. Critical care time is 35 minutes Plan dated 10/24/2017 The patient is postop day #1 status post tracheostomy and PEG tube placement. The FiO2 was dropped from 55-40%. We'll start weaning the PEEP. The patient is currently off paralysis. We'll start weaning the propofol down. Additional recommendations and suggestions are forthcoming. Chest x-ray is stable. In fact, patient was somewhat improved aeration. We'll continue to monitor closely. Prognosis is guarded. I have been honest with the patient's family all along. After discussions with the and brother. Critical care time 38 minutes. Plan dated 10/25/2017 The patient is postop day #2 status post tracheostomy and PEG tube placement. The propofol has been weaned down to 30 mics per kilogram per minute. The patient's chest x-ray showed bilateral infiltrates. The patient's mental status is poor. We'll go ahead and evaluate him with a computed tomography scan of the brain without contrast and EEG. We may ask neurology to see the patient. This may be nothing more than anoxic/metabolic encephalopathy. Prognosis is guarded. The patient remains on a number drips including propofol insulin and saline. The patient's also on tube feeds with vital high protein at 30 mL with a goal of 44 mL/h. The FiO2 was dropped down to 40%. I'll make sure that any vent changes are only done by the critical care physician. Critical care time 37 minutes Plan dated Oct 26 2017 The patient is postop day #3, status post tracheostomy and PEG tube placement. The patient will be given a one-time dose of Nimbex. We'll get a stat chest x- ray and blood gas. Additional recommendations and suggestions are forthcoming. We place him back on the assist control mode. No additional weaning today. We'll continue to follow. Prognosis is guarded. We'll resume tube feeds later today at 10 mL an hour. Currently on hold. Critical care time 34 minutes Plan dated 10/27/2017 The patient is postop day #4, status post tracheostomy and PEG tube placement. Yesterday, the tracheostomy was changed to 8 extra long tracheostomy tube. He was having significant respiratory distress once he was placed on PSV and CPAP. He is doing much better today. He is on a small amount of propofol. That will be weaned off. He is getting tube feeds via his PEG tube. We'll try to advance him to trach collar today. He seems very very stable on PSV 8 CPAP of 5. His made significant improvement over last 24-48 hours. We'll continue to update the on a daily basis. Critical care time 34 minutes. Time with Patient: Greater than 30
[2017-10-27] MEDS: LABETALOL 5 MG/ML VIAL MDV IVP PRN (08:54)
[2017-10-27] MEDS: PROMETHAZ-COD 6.25-10 MG/5 ML 5 ML CUP PO PRN ×2 (09:36→22:34)
[2017-10-27 12:29] LABS: Glucose,Whole Blood 144 mg/dL (75-99)
--- NOTE | 2017-10-27 14:03 | P.PN ---
Subjective 52-year-old admitted to ICU secondary to sepsis leading to acute respiratory distress syndrome patient remains intubated on ventilator is being managed by adult education manager patient underwent irrigation and the bride meant of the left ankle twice during this hospitalization. Patient has MSSA in the joint and patient is presently on ceftezole and for that reason. Patient is intubated sedated and patient is on Precedex with anticipation of extubation tomorrow. 10/20/2017 Patient remains intubated patient is on high-dose of IV insulin and requiring large amounts of sedation remains in hypoxic respiratory failure had a low- grade fever today if he continues to have low-grade fevers or has a high-grade fever repeat blood cultures will be obtained 10/21/2017 Patient maintains intubated, still remains on 70% FiO2 and adult education manager his considering tracheostomy and PEG tube placement. Patient had low-grade fevers yesterday. Patient is on paralytic agents now with fairly well-controlled blood pressure, clevidipine was discontinued 10/22/2017 Patient's FiO2 has come down to 50% today no other significant changes were made to vent. 10/23/2017 Patient is going for a tracheostomy and PEG tube placement patient remains an FiO2 of 55% plan is to this can you paralytics after tracheostomy. 10/24/2017 Patient had a tracheostomy and PEG tube placement remains on 40% FiO2 and PEEP of 12 didn't have a bowel movement for a few days we'll try lactulose and senna through PEG tube. No significant change in his overall clinical condition plan is to wean off propofol 10/25/2017 Patient is being transitioned to subcutaneous insulin patient is waking up slowly taking a while because the patient was on sedation for long period of time patient vent settings seem to be better with PEEP of 8 now FiO2 of 40%. 10/26/2017 Patient failed spontaneous breathing trial, later found to have nonfunctional tracheostomy tube which was replaced today. Patient is still sedated for rather tracheostomy tube and I evaluated him. Patient is back on 100% FiO2 which will be tapered down PEEP of 10 10/28/2079 Patient is doing much better awake did move his bowel, blood sugars are stable, tolerated BiPAP for couple hours today. Objective - Vital Signs Vital signs: Vital Signs Temp 99.1 F 10/27/17 13:00 Pulse 87 10/27/17 13:00 Resp 26 H 10/27/17 13:00 BP 160/79 10/27/17 13:00 Pulse Ox 96 10/27/17 13:00 Intake & Output 10/26/17 10/27/17 10/27/17 18:59 06:59 18:59 Intake Total 340.000 510 352.496 Output Total 501 005 5910 Balance -615.000 -275 -1407.504 Weight 151.7 kg 148.8 kg 148.8 kg Intake: IV 240 220 140 0.9 NS 60 Lactated Ringers 1,000 ml 180 220 140 @ 20 mls/hr IV .Q24H [facility] Rx#:[id number] Intake, IV Titration 100.000 100 172.496 Amount Clevidipine Butyrate 25 0 mg In Empty Bag 1 bag @ 1 MG/HR 2 mls/hr IV .Q24H [facility] Rx#:[id number] Magnesium Sulfate-D5w Pmx 100 1 gm In Dextrose/Water 1 100ml.bag @ 100 mls/hr IVPB Q1H [facility] Rx#: [id number] Propofol 1,000 mg In 100.000 100 72.496 Empty Bag 1 bag @ Per Protocol IV .Q0M [facility] Rx#: [id number] Tube Feeding 0 100 40 Other 90 Output: Urine 055 483 5180 Other: Voiding Method Indwelling Catheter Indwelling Catheter Indwelling Catheter # Bowel Movements 1 ABP, PAP, CO, CI - Last Documented Arterial Blood Pressure 137/80 - Exam PHYSICAL EXAMINATION: GENERAL: Patient has tracheostomy now, morbidly obese PEG tube with continuous supplementation, patient is awake and alert no significant drainage from the tracheostomy HEENT: Pupils are round and equally reacting to light. EOMI. No scleral icterus. No conjunctival pallor. Normocephalic, atraumatic. No pharyngeal erythema. No thyromegaly. CARDIOVASCULAR: S1 and S2 present. No murmurs, rubs, or gallops. PULMONARY: Chest is clear to auscultation, no wheezing or crackles. ABDOMEN: Soft, nontender, nondistended, normoactive bowel sounds. No palpable organomegaly. MUSCULOSKELETAL: Patient left leg is wrapped in Geoffrey bandages EXTREMITIES: No cyanosis, clubbing, or pedal edema. NEUROLOGICAL: Unable to assess due to the above-mentioned reasons SKIN: No rashes. - Labs CBC & Chem 7: 10/27/17 04:08 10/27/17 12:15 Labs: Abnormal Lab Results - Last 24 Hours (Table) 10/26/17 10/26/17 10/26/17 Range/Units 15:28 18:27 21:56 WBC (3.8-10.6) k/uL RBC (4.30-5.90) m/uL Hgb (13.0-17.5) gm/dL Hct (39.0-53.0) % MCHC (31.0-37.0) g/dL Plt Count (150-450) k/uL ABG pCO2 (35-45) mmHg ABG HCO3 (21-25) mmol/L ABG Total CO2 (19-24) mmol/L ABG O2 Saturation (94-97) % Sodium (137-145) mmol/L BUN (9-20) mg/dL Glucose (74-99) mg/dL POC Glucose (mg/dL) 137 H 155 H 142 H (75-99) mg/dL 10/26/17 10/27/17 10/27/17 Range/Units 23:40 03:03 04:08 WBC (3.8-10.6) k/uL RBC (4.30-5.90) m/uL Hgb (13.0-17.5) gm/dL Hct (39.0-53.0) % MCHC (31.0-37.0) g/dL Plt Count (150-450) k/uL ABG pCO2 (35-45) mmHg ABG HCO3 (21-25) mmol/L ABG Total CO2 (19-24) mmol/L ABG O2 Saturation (94-97) % Sodium 146 H (137-145) mmol/L BUN 33 H (9-20) mg/dL Glucose 167 H (74-99) mg/dL POC Glucose (mg/dL) 136 H 166 H (75-99) mg/dL 10/27/17 10/27/17 10/27/17 Range/Units 04:08 04:58 05:29 WBC 10.7 H (3.8-10.6) k/uL RBC 3.40 L (4.30-5.90) m/uL Hgb 9.3 L (13.0-17.5) gm/dL Hct 30.2 L (39.0-53.0) % MCHC 30.6 L (31.0-37.0) g/dL Plt Count 570 H (150-450) k/uL ABG pCO2 46 H (35-45) mmHg ABG HCO3 31 H (21-25) mmol/L ABG Total CO2 33 H (19-24) mmol/L ABG O2 Saturation 98.0 H (94-97) % Sodium (137-145) mmol/L BUN (9-20) mg/dL Glucose (74-99) mg/dL POC Glucose (mg/dL) 164 H (75-99) mg/dL 10/27/17 Range/Units 12:18 WBC (3.8-10.6) k/uL RBC (4.30-5.90) m/uL Hgb (13.0-17.5) gm/dL Hct (39.0-53.0) % MCHC (31.0-37.0) g/dL Plt Count (150-450) k/uL ABG pCO2 (35-45) mmHg ABG HCO3 (21-25) mmol/L ABG Total CO2 (19-24) mmol/L ABG O2 Saturation (94-97) % Sodium (137-145) mmol/L BUN (9-20) mg/dL Glucose (74-99) mg/dL POC Glucose (mg/dL) 144 H (75-99) mg/dL Assessment and Plan Plan: Acute septic arthritis of the left ankle, status post left ankle irrigation with debridement, twice during this hospitalization and patient has MSSA and patient is on ceftezolin. Acute hypoxemic respiratory failure requiring intubation and mechanical ventilation with failure to wean from mechanical ventilation, possibility of ARDS patient is on prolonged mechanical ventilation patient did a tracheostomy and PEG tube in place.precast which he was replaced or, vision respiratory status improved tolerated BiPAP for some time today Acute severe sepsis with positive blood cultures for methicillin sensitive Staphylococcus Mental status changes, set secondary to sepsis encephalopathy Diabetes mellitus: patient was transitioned to subcutaneous insulin but his blood sugars drop but because patient is not getting much of to feedings as he was having high residuals. on Lantus at nighttime to 50 units and sliding scale for now, to feedings at 10 mL per hour, once every feeding rate goes up is blood sugars are expected to go Severe peripheral neuropathy History of chronic wounds and ulcerations of the lower extremities with cellulitis Charcot joints Morbid obesity Hypertension Hyperlipidemia Hypothyroidism Acute kidney injury Constipation: Management as mentioned above
--- NOTE | 2017-10-27 14:24 | P.PN ---
Subjective Progress Note Date: 10/27/17 Principal diagnosis: Sepsis 52-year-old male has a long-standing history of diabetes mellitus type 2 poorly controlled and history of a prior diabetic foot ulceration to the right foot which resulted in a great toe amputation. The patient is been having some difficulties with his left ankle and following with the orthopedic surgeon. Because of some discomfort at the joint he was measured and given a new bracing device for the foot and ankle. However grommet on the dorsum of the foot resulted in a bit of an ulcer and he was concerned and sought care in the office. The patient had difficulty making the appointment because of the weather and has significant distance from work to the office and reschedule. When he came to the office earlier this week the ulceration had healed and he was feeling better but was still having some swelling to the ankle area. He had no fever or chills at the time of presentation to the office, but did have the swelling to the ankle area for which she had a specialty boot that have been designed that he was not wearing that day. He however presents to the emergency center because of the sudden onset of inability to bear weight to the ankle because of the amount of pain that he started to have. Shortly thereafter he became febrile and has had a rapid decline in his status with evidence of sepsis and presentation to the intensive care unit. The case is discussed with the corner trimmer operator as well as the orthopedic foot and ankle specialist. Given his rapid decline in status he'll go to the operating room this afternoon. The patient is acutely ill with fever chills generalized weakness and malaise and some alteration of his mental status 10/13/2017 patient remains in intensive care unit with ongoing sepsis. Appears to have acute lung injury and also has an elevation of his creatinine likely with an acute renal injury also occurring from his sepsis. Laboratories revealed evidence of staph aureus await final susceptibility. Follow blood cultures in process reasonable cultures are positive. Patient continues to have some ongoing fevers and is admitted of nausea with the response to Zofran. He is still in a warm flushed phase of sepsis and hopefully now that he has been resuscitated will have further improvement of his status. 10/14/2017 patient does have some improvement today. He is not hypotensive not requiring vasopressors but is still on high flow oxygen for his acute lung injury. He has had fevers but down to 99.9 still feels poorly and has significant pain of the left foot and ankle area. 10/15/2017 the patient had deterioration of his respiratory status last night with his acute lung injury and developing early ARDS. He required intubation with sedation and mechanical ventilation. With improved sedation he is quite comfortable today and is synchronous with the vent with adequate oxygenation and improved blood gas. The patient is quite comfortable at this time and receiving tube feeds for his nutritional needs. Fever and leukocytosis are trending down 10/16/2017 is noted the patient remains ventilated as well as with intubation and sedation. He is quite comfortable today. Has been taking back to the operating room for further evaluation of the medial aspect of the right ankle, some infected bone was debrided but no further extensive pockets of purulence were found. Wound VAC applied. 10/17/2017 patient has had a weaning trial today but it was not successful in counseling. Remains intubated sedated and mechanically ventilated. He does to do quite comfortable. Wound vacs are in place after the debridement of yesterday to the left foot. Fever has trended down and he is hemodynamically stable 10/18/2017 the patient had an attempt for a weaning trial but this however did not go well the patient became significantly hypertensive. With multiple medications this is now settled. Today the wound vacs will be changed further care will be given. Is much more calm this afternoon and hopefully further weaning trials will go well over the next few days. The fever has resolved and there is now a negative blood culture. 2017 patient remains in ICU intubated sedated and paralyzed due to the ARDS which is resulting in nursing home respiratory failure. 10/22/2017 reveals the patient to have a slightly improved ventilatory status he is down to 55% FiO2 and PEEP is at 12. He has been evaluated by Dr. Zepeda for tracheostomy and PEG tube placement in the near future. The patient seems to be quite comfortable and with the current sedation and paralysis. Ventilating well 10/23/2017 patient is post-tracheostomy and PEG tube placement today.the patient is being readied for transition to a ventilator facility. 10/24/2017 patient is comfortable on current level of sedation. Ongoing attempts for reduction of level of sedation and ventilation support her in process. No new wounds. 10/25/2017 patient now with some improvement in that the sedation has been discontinued and has not caused elevated BP or respirations as in the last few days.he has a sedation weaned through the day he opened eyes, tracked the observers and followed commands.he even smiled for the observer. 10/26/2017 was improving today but developed tracheal occlusion and required change of trach now doing much better. 10/27/2017 patient is further improvement with the resolution of the tracheal occlusion. He is awake alert and interactive. His comfortable. Objective - Vital Signs Vital signs: Vital Signs Temp 99.1 F 10/27/17 13:00 Pulse 86 10/27/17 14:00 Resp 26 H 10/27/17 14:00 BP 155/70 10/27/17 14:00 Pulse Ox 96 10/27/17 14:00 Intake & Output 10/26/17 10/27/17 10/27/17 18:59 06:59 18:59 Intake Total 340.000 510 412.496 Output Total 446 380 1185 Balance -615.000 -275 -1407.504 Weight 151.7 kg 148.8 kg 148.8 kg Intake: IV 240 220 160 0.9 NS 60 Lactated Ringers 1,000 ml 180 220 160 @ 20 mls/hr IV .Q24H [facility] Rx#:[id number] Intake, IV Titration 100.000 100 172.496 Amount Clevidipine Butyrate 25 0 mg In Empty Bag 1 bag @ 1 MG/HR 2 mls/hr IV .Q24H [facility] Rx#:[id number] Magnesium Sulfate-D5w Pmx 100 1 gm In Dextrose/Water 1 100ml.bag @ 100 mls/hr IVPB Q1H [facility] Rx#: [id number] Propofol 1,000 mg In 100.000 100 72.496 Empty Bag 1 bag @ Per Protocol IV .Q0M [facility] Rx#: [id number] Tube Feeding 0 100 80 Other 90 Output: Urine 782 032 0604 Other: Voiding Method Indwelling Catheter Indwelling Catheter Indwelling Catheter # Bowel Movements 1 ABP, PAP, CO, CI - Last Documented Arterial Blood Pressure 137/80 - Exam 52-year-old male presents to Hospital feeling acutely ill found to have evidence of fever and then rapidly developed sepsis, HEENT: Anicteric conjunctiva are pink and moist nasal mucosa grossly intact without significant lesions, sedation now removed, tracheostomy intact without bleeding Neck: The neck is supple without significant lymphadenopathy or thyromegaly. Lungs: Good bilateral air entry with harsh breath sounds Heart: regular with an audible S1 and S2 soft S4 There is no significant murmur click or rub, PMI was nondisplaced. Abdomen: Obese Positive bowel sounds soft and nontender without palpable masses or organomegaly. There was no guarding or rebound. Extremities: The upper extremities have excellent pulses they are symmetric, no significant petechiae or telangiectasia. No splinter hemorrhages were noted. Right lower extremity has evidence of the prior great toe amputation which is well healed. Left lower extremity reveals evidence of the surgical incisions with silver dressings in place. There is still some swelling but the extensive swelling at the ankle has started to improve. There is no inguinal lymphadenopathy. Neuro: no longer sedated following commands - Labs CBC & Chem 7: 10/27/17 04:08 10/27/17 12:15 Labs: Abnormal Lab Results - Last 24 Hours (Table) 10/26/17 10/26/17 10/26/17 Range/Units 15:28 18:27 21:56 WBC (3.8-10.6) k/uL RBC (4.30-5.90) m/uL Hgb (13.0-17.5) gm/dL Hct (39.0-53.0) % MCHC (31.0-37.0) g/dL Plt Count (150-450) k/uL ABG pCO2 (35-45) mmHg ABG HCO3 (21-25) mmol/L ABG Total CO2 (19-24) mmol/L ABG O2 Saturation (94-97) % Sodium (137-145) mmol/L BUN (9-20) mg/dL Glucose (74-99) mg/dL POC Glucose (mg/dL) 137 H 155 H 142 H (75-99) mg/dL 10/26/17 10/27/17 10/27/17 Range/Units 23:40 03:03 04:08 WBC (3.8-10.6) k/uL RBC (4.30-5.90) m/uL Hgb (13.0-17.5) gm/dL Hct (39.0-53.0) % MCHC (31.0-37.0) g/dL Plt Count (150-450) k/uL ABG pCO2 (35-45) mmHg ABG HCO3 (21-25) mmol/L ABG Total CO2 (19-24) mmol/L ABG O2 Saturation (94-97) % Sodium 146 H (137-145) mmol/L BUN 33 H (9-20) mg/dL Glucose 167 H (74-99) mg/dL POC Glucose (mg/dL) 136 H 166 H (75-99) mg/dL 10/27/17 10/27/17 10/27/17 Range/Units 04:08 04:58 05:29 WBC 10.7 H (3.8-10.6) k/uL RBC 3.40 L (4.30-5.90) m/uL Hgb 9.3 L (13.0-17.5) gm/dL Hct 30.2 L (39.0-53.0) % MCHC 30.6 L (31.0-37.0) g/dL Plt Count 570 H (150-450) k/uL ABG pCO2 46 H (35-45) mmHg ABG HCO3 31 H (21-25) mmol/L ABG Total CO2 33 H (19-24) mmol/L ABG O2 Saturation 98.0 H (94-97) % Sodium (137-145) mmol/L BUN (9-20) mg/dL Glucose (74-99) mg/dL POC Glucose (mg/dL) 164 H (75-99) mg/dL 10/27/17 Range/Units 12:18 WBC (3.8-10.6) k/uL RBC (4.30-5.90) m/uL Hgb (13.0-17.5) gm/dL Hct (39.0-53.0) % MCHC (31.0-37.0) g/dL Plt Count (150-450) k/uL ABG pCO2 (35-45) mmHg ABG HCO3 (21-25) mmol/L ABG Total CO2 (19-24) mmol/L ABG O2 Saturation (94-97) % Sodium (137-145) mmol/L BUN (9-20) mg/dL Glucose (74-99) mg/dL POC Glucose (mg/dL) 144 H (75-99) mg/dL Laboratory Results WBC 10.7 k/uL (3.8-10.6) H 10/27/17 04:08 RBC 3.40 m/uL (4.30-5.90) L 10/27/17 04:08 Hgb 9.3 gm/dL (13.0-17.5) L 10/27/17 04:08 Hct 30.2 % (39.0-53.0) L 10/27/17 04:08 MCV 88.9 fL (80.0-100.0) 10/27/17 04:08 MCH 27.2 pg (25.0-35.0) 10/27/17 04:08 MCHC 30.6 g/dL (31.0-37.0) L 10/27/17 04:08 RDW 14.2 % (11.5-15.5) 10/27/17 04:08 Plt Count 570 k/uL (150-450) H 10/27/17 04:08 Neutrophils % 80 % 10/26/17 04:30 Neutrophils % (Manual) 82 % 10/21/17 06:00 Band Neutrophils % 8 % 10/20/17 05:00 Lymphocytes % 11 % 10/26/17 04:30 Lymphocytes % (Manual) 9 % 10/21/17 06:00 Monocytes % 5 % 10/26/17 04:30 Monocytes % (Manual) 5 % 10/21/17 06:00 Eosinophils % 2 % 10/26/17 04:30 Eosinophils % (Manual) 3 % 10/20/17 05:00 Basophils % 1 % 10/26/17 04:30 Basophils % (Manual) 1 % 10/20/17 05:00 Metamyelocytes % 4 % 10/20/17 05:00 Myelocytes % 4 % 10/21/17 06:00 Neutrophils # 10.1 k/uL (1.3-7.7) H 10/26/17 04:30 Neutrophils # (Manual) 13.45 k/uL (1.3-7.7) H 10/21/17 06:00 Lymphocytes # 1.4 k/uL (1.0-4.8) 10/26/17 04:30 Lymphocytes # (Manual) 1.48 k/uL (1.0-4.8) 10/21/17 06:00 Monocytes # 0.7 k/uL (0-1.0) 10/26/17 04:30 Monocytes # (Manual) 0.82 k/uL (0-1.0) 10/21/17 06:00 Eosinophils # 0.2 k/uL (0-0.7) 10/26/17 04:30 Eosinophils # (Manual) 0.53 k/uL (0-0.7) 10/20/17 05:00 Basophils # 0.1 k/uL (0-0.2) 10/26/17 04:30 Basophils # (Manual) 0.18 k/uL (0-0.2) 10/20/17 05:00 Metamyelocytes # (Man) 0.70 k/uL (0) H 10/20/17 05:00 Myelocytes # (Manual) 0.66 k/uL (0) H 10/21/17 06:00 Nucleated RBCs 0 /100 WBC (0-0) 10/21/17 06:00 Manual Slide Review Performed 10/21/17 06:00 Toxic Granulation Present 10/20/17 05:00 Large Platelets Present 10/21/17 06:00 Polychromasia Present 10/21/17 06:00 Hypochromasia Slight 10/27/17 04:08 ESR 25 mm/hr (0-15) H 10/12/17 07:29 Sample Site rrad 10/27/17 05:29 ABG pH 7.44 (7.35-7.45) 10/27/17 05:29 ABG pCO2 46 mmHg (35-45) H 10/27/17 05:29 ABG pO2 98 mmHg (83-108) 10/27/17 05:29 ABG HCO3 31 mmol/L (21-25) H 10/27/17 05:29 ABG Total CO2 33 mmol/L (19-24) H 10/27/17 05:29 ABG O2 Saturation 98.0 % (94-97) H 10/27/17 05:29 ABG Base Excess 6.9 mmol/L 10/27/17 05:29 Cr Test Yes 10/27/17 05:29 ABG Lactic Acid 1.0 mmol/L (0.5-1.6) 10/12/17 18:06 FiO2 50 % 10/27/17 05:29 Sodium 146 mmol/L (137-145) H 10/27/17 04:08 Potassium 3.8 mmol/L (3.5-5.1) 10/27/17 12:15 Chloride 106 mmol/L (98-107) 10/27/17 04:08 Carbon Dioxide 29 mmol/L (22-30) 10/27/17 04:08 Anion Gap 11 mmol/L 10/27/17 04:08 BUN 33 mg/dL (9-20) H 10/27/17 04:08 Creatinine 0.70 mg/dL (0.66-1.25) 10/27/17 04:08 Est GFR (CKD-EPI)AfAm >90 (>60 ml/min/1.73 sqM) 10/27/17 04:08 Est GFR (CKD-EPI)NonAf >90 (>60 ml/min/1.73 sqM) 10/27/17 04:08 Glucose 167 mg/dL (74-99) H 10/27/17 04:08 POC Glucose (mg/dL) 144 mg/dL (75-99) H 10/27/17 12:18 POC Glu [place] ID , Alison 10/27/17 12:[address] Glu mg/dL 214 10/12/17 07:29 Hemoglobin A1c 9.1 % (4.0-6.0) H 10/12/17 07:29 Plasma Lactic Acid Ron 1.5 mmol/L (0.7-2.0) 10/11/17 21:10 Uric Acid 5.6 mg/dL (3.5-8.5) 10/11/17 21:10 Calcium 9.8 mg/dL (8.4-10.2) 10/27/17 04:08 Phosphorus 4.4 mg/dL (2.5-4.5) 10/27/17 04:08 Magnesium 1.9 mg/dL (1.6-2.3) 10/27/17 04:08 AST 96 U/L (17-59) H 10/13/17 19:55 ALT 58 U/L (21-72) 10/13/17 19:55 C-Reactive Protein 45.1 mg/L (<10.0) H 10/11/17 21:10 Urine Color Yellow 10/15/17 11:30 Urine Appearance Clear (Clear) 10/15/17 11:30 Urine pH 6.0 (5.0-8.0) 10/15/17 11:30 Ur Specific [place] 1.018 (1.001-1.035) 10/15/17 11:30 Urine Protein 1+ (Negative) H 10/15/17 11:30 Urine Glucose (UA) 3+ (Negative) H 10/15/17 11:30 Urine Ketones Negative (Negative) 10/15/17 11:30 Urine Blood Small (Negative) H 10/15/17 11:30 Urine Nitrite Negative (Negative) 10/15/17 11:30 Urine Bilirubin Negative (Negative) 10/15/17 11:30 Urine Urobilinogen <2.0 mg/dL (<2.0) 10/15/17 11:30 Ur Leukocyte Esterase Negative (Negative) 10/15/17 11:30 Urine RBC <1 /hpf (0-5) 10/15/17 11:30 Urine WBC 3 /hpf (0-5) 10/15/17 11:30 Urine Mucus Rare /hpf (None) H 10/15/17 11:30 Blood Type O Positive 10/21/17 13:30 Blood Type Recheck No 10/21/17 13:30 Antibody Screen NEGATIVE 10/21/17 13:30 Spec Expiration Date 10/24/2017 - 2330 10/21/17 13:30 Microbiology 10/17/17 05:50 Blood Blood Culture - Final No Growth after 144 hours 10/17/17 04:07 Blood Blood Culture - Final No Growth after 144 hours 10/15/17 05:15 Sputum Gram Stain - Final 10/15/17 05:15 Sputum Sputum Culture - Final Jayne albicans 10/13/17 08:45 Blood Blood Culture Gram Stain - Final 10/13/17 08:45 Blood Blood Culture - Final Staphylococcus aureus 10/12/17 19:48 Ankle - Left Anaerobic Culture - Final 10/12/17 19:48 Ankle - Left Anaerobic Culture - Final 10/13/17 07:25 Blood Blood Culture Gram Stain - Final 10/13/17 07:25 Blood Blood Culture - Final Staphylococcus aureus 10/12/17 19:48 Ankle - Left Gram Stain - Final 10/12/17 19:48 Ankle - Left Wound Culture - Final Staph aureus 10/12/17 19:48 Ankle - Left Gram Stain - Final 10/12/17 19:48 Ankle - Left Wound Culture - Final Staphylococcus aureus 10/12/17 09:27 Synovial Fluid Gram Stain - Final 10/12/17 09:27 Synovial Fluid Body Fluid Culture - Final Staphylococcus aureus 10/13/17 07:25 Blood Blood Culture - Final 10/13/17 08:45 Blood Blood Culture - Final 10/11/17 21:15 Blood Blood Culture Gram Stain - Final 10/11/17 21:15 Blood Blood Culture - Final Staphylococcus aureus 10/11/17 21:15 Blood Blood Culture - Final Assessment and Plan (1) Septic arthritis of left ankle Narrative/Plan: 52-year-old male presents the emergency center with inability to bear weight to his left ankle. The patient has had some new orthotic boot manufactured in a developed a small ulcer on the dorsum of the left foot. This apparently was from a grommet from an orthotic. This was completely healed and was evaluated but was still having ongoing difficulties with ankle area. Is actively following up with orthopedic foot and ankle. The patient does have a boot that was designed that he was not wearing when he came to the office and understands it is important that he wears this when he is at work to protect his ankle from the Charcot changes. Patient however now has high-grade fever chills leukocytosis and laboratories: Positive blood culture with gram-positive cocci. The patient did have aspiration per orthopedic ankle grossly purulent material was found. Originally the plan was to go to the operating him in the morning but as the patient felt worsening sepsis he is no scheduled operating room this afternoon for the incision and drainage of this abscess. Deep cultures and pathology will also be sent. Antibiotic therapy is altered from vancomycin to daptomycin. In hopes to have a more rapid bacteriocidal activity given his rapidly declining status. Enhance glucose control be important part of his healing. Leukocytosis record related to his current sepsis. There is evidence of possible culture and he will require follow blood cultures in the morning. He was monitored for any persistence of his bacteremia. There will be a coordinated effort between orthopedic ankle and infectious disease as to the care at discharge. 10/13/2017 reveals the patient still needs intensive care unit after surgery with ongoing sepsis. Continues to have fever and leukocytosis and difficulties with acute lung injury and now elevated creatinine to 2.0. Patient continues to be resuscitated and has had some improvement but minimal at this point in time. He will continue with maneuvers to improve his fever maintain his hydration and antibiotic therapy continues with daptomycin for both staph aureus and MRSA, blood culture and aspirate from the ankle are still showing staph aureus final susceptibility is pending. Patient aware that if he improves he will be receiving a jg completed a long course of IV antibiotic therapy for this extensive infection. Leukocytosis directly related to the sepsis 10/14/2017 the patient remains in intensive care unit, high flow oxygen is being utilized for his acute lung injury. His creatinine has increased further is now 2.0. Urine output is adequate. He is symptomatically stable is having difficulties with shortness of breath. Pain at the foot and ankle is predictable but the significant swelling history improving after surgical incision and drainage. Ulceration is treated with a medical history dressing. If there is no further marked improvement by tomorrow the patient will likely go back to the operating him for further incision and drainage to the site. The case is discussed with the orthopedic surgeon. 10/15/2017 the patient is noted had a decline of his status and his required intubation with sedation mechanical ventilation and is now much more comfortable. His pulmonary status is improved with the intervention. He has not requiring vasopressor therapy. We'll do blood cultures verified MSSA and antibiotic therapy was transitioned to high dose cefazolin. The patient is evaluated in conjunction with the orthopedic surgeon and the plan is for the patient to have further debridement of the ankle tomorrow to ensure there is complete drainage of any abscess at that joint site given the progression of his underlying illness. Fortunately he has not hemodynamic stable and is having improvement of his leukocytosis. We'll expect as a sepsis improves his pulmonary injury will improve also. His creatinine peaked at 2.10 now down to 2.0 and nephrology has evaluated. Follow blood cultures to ensure clearance of his bacteremia. Echocardiogram without evidence of vegetations. Is not the case is discussed with the orthopedic surgeon as well as the patient' s . 10/16/2017 the patient's been taking to the operating room today for further debridement of the left ankle. Some necrotic bone was debrided but no further large pockets of abscess were seen. Wound vacs are applied. We'll continue his high-dose antibiotic therapy for his MSSA infection from the septic arthritis left ankle. There are several evidences of improvement today, still requires no vasopressor therapy. We'll expect as he starting to improve we need to start in the next day or so. Once he is evidence of clearance of his bacteremia will need IV access placed for his long-term IV antibiotic therapy. 10/17/2017 patient is hemodynamically stable without acute no difficulties today. He over did not do well with a weaning trial. Will be tried on a daily basis as per the staff appraiser. He is hemodynamic stable and his adequate urinary output. We'll continue high-dose cefazolin and supportive care. It is likely that the wound vacs removed tomorrow with further evaluation of the ankle wounds at that time. Supportive care continues he's had a slight improvement of his creatinine and his sodium is improving. 10/18/2017 the patient remains medically stable and that her vasopressor therapy. Insulin drip is reduced. He did not do well with weaning trial today with significant hypertensive response. With the medications is better at this time. Acute renal failure has resolved leukocytosis is trending to improvement. And there is no negative blood culture from October 17. If the patient improves we'll transition to alternative IV access was for a dual lumen PICC line to be placed this will help us transition to his outpatient intravenous antibiotic therapy when he is improved. The wound VAC is removed at this point in time. Saline moistened opticell silver is applied without difficulty. This will be changed every other day. Pulmonary critical care will continue to move toward extubation. 10/21/2017 patient continues to have respiratory failure 10/21/2017 patient continues to have respiratory failure with ongoing intubation sedation and mechanical ventilation he is hemodynamically stable. Remains on insulin drip. Vital respiratory failure the patient will undergo tracheostomy and PEG tube placement later this week. 10/22/2017 patient remains intubated sedated paralyzed and mechanically ventilated. Tracheostomy is to happen soon. His MSSA sepsis is under control this point in time is developed ARDS and will require long-term weaning. Fever and leukocytosis have improved no other infections are noted local wound care to the ankle reveals evidence of the improving surgical wounds. 10/23/2017 the patient is now status Constantly ongoing plans for long-term weaning. Local wound care is with silver dressing.as infection is improving there will Be a possibility for negative pressure therapy system. Currently plan 6 weeks of intravenous antibiotic therapy for his MSSA sepsis. Pulmonary is following regarding his ARDS. Remains on an insulin drip through most the day. 10/24/2017 patient continues for the slow weaning process. Goal of the next 48 hours as further reduction of his propofol requirements so that he will become a candidate for long-term vent facility for his long-term weaning that will be required. The extensive infection to the left ankle area has been surgically debrided on 2 occasions and the leg is much improved. Bactrim has been resolved for quite some time. Is moderate ARDS and showing some slight improvement to the day today. Plan intravenous antibiotic therapy until 201710/25/2017 the patient has had further improvement today. Sedation has been held he's much And he is now much more awake and following commands. He has moderate ARDS is showing improvement and that his FiO2 is down to 40% his PEEP is 8. Patient is progressing well and likely will be able to go to a ventilator facility in the near future. He has noted his antimicrobial therapy continues through 11/28/2017 for his MSSA sepsis and septic arthritis of the left ankle Charcot joint. Local wound care continues with the Optisol silver with marked improvement to the site. 10/26/2017 had trach site problems earlier now resolved and is returning to better vent settings and sedation wearing off and following commands and smiling.Complete course of IVABX for the MSSA sepsis form septic arthritis await improvement for transfer to [facility]. 10/27/2017 patient is having further improvement. He did have some difficulty earlier today that is now resolving. He is sitting in the chair position of the hospital ICU bed. Looks comfortable. Denies shortness of breath. He's not having any pain. Mentation as noted is much improved. IV antibiotic therapy continues through 11/28/2017 and will be completed while he is at [facility] Current Visit: Yes Status: Acute Code(s): M00.9 - PYOGENIC ARTHRITIS, UNSPECIFIED SNOMED Code(s): 64176444 (2) Sepsis Current Visit: Yes Status: Acute Priority: Medium Code(s): A41.9 - SEPSIS , UNSPECIFIED ORGANISM SNOMED Code(s): 94381760 (3) Poorly controlled type 2 diabetes mellitus with complication Current Visit: Yes Status: Chronic Code(s): E11.8 - TYPE 2 DIABETES MELLITUS WITH UNSPECIFIED COMPLICATIONS; E11.65 - TYPE 2 DIABETES MELLITUS WITH HYPERGLYCEMIA SNOMED Code(s): 77182333
[2017-10-27 18:20] LABS: Glucose,Whole Blood 184 mg/dL (75-99)
[2017-10-27] MEDS: LACTATED RINGERS 1,000 ML IV SCH (19:51)
[2017-10-27] MEDS: INSULIN DETEMIR 100 UNIT/ML 10 ML VIAL SQ SCH (20:13)
[2017-10-27] MEDS: ONDANSETRON 4 MG/2 ML VIAL IVP PRN (22:55)
[2017-10-27 23:24] LABS: Glucose,Whole Blood 164 mg/dL (75-99)
[2017-10-28 04:18] LABS: HGB 9.8 gm/dL (13.0-17.5); Hypochromasia Moderate; MCH 27.5 pg (25.0-35.0); MCHC 30.5 g/dL (31.0-37.0); MCV 90.2 fL (80.0-100.0); Mean Platelet Volume 7.6; Platelet Count 567 k/uL (150-450); RBC 3.55 m/uL (4.30-5.90); WBC 12.1 k/uL (3.8-10.6)
[2017-10-28 04:28] LABS: Anion Gap 12 mmol/L; Blood Urea Nitrogen 35 mg/dL (9-20); Calcium 9.8 mg/dL (8.4-10.2); Carbon Dioxide 32 mmol/L (22-30); Chloride 104 mmol/L (98-107); Glucose 131 mg/dL (74-99); Magnesium 2.2 mg/dL (1.6-2.3); Phosphorus 3.7 mg/dL (2.5-4.5); Potassium 3.3 mmol/L (3.5-5.1); Sodium 148 mmol/L (137-145)
[2017-10-28] MEDS: IPRATROPIUM-ALBUTEROL 3 ML NEB INHALATION SCH ×4 (04:33→15:51)
[2017-10-28] MEDS ORDERED: Potassium Replacement Protocol 1 EACH MISC MISCELLANE PRN (04:53)
[2017-10-28 05:03] LABS: ABG Base Excess 10.6 mmol/L; ABG HCO3 35 mmol/L (21-25); ABG Oxygen Saturation 95.7 % (94-97); ABG PCO2 51 mmHg (35-45); ABG PH 7.45 (7.35-7.45); ABG PO2 77 mmHg (83-108); ABG TCO2 36 mmol/L (19-24)
[2017-10-28 05:45] LABS: Glucose,Whole Blood 118 mg/dL (75-99)
[2017-10-28] MEDS: INSULIN ASPART 100 UNIT/ML 1 ML 10 ML VIAL SQ SCH ×2 (05:45→13:27)
[2017-10-28] MEDS: METOCLOPRAMIDE 5 MG/ML 2 ML VIAL IVP SCH ×2 (06:10→13:27)
[2017-10-28] MEDS: POTASSIUM BICARBONATE/CIT AC 20 MEQ TABLET.EFF NG-TUBE SCH ×2 (06:12→07:07)
[2017-10-28] MEDS: LEVOTHYROXINE IVP 100 MCG/5 ML VIAL IV SCH (06:37)
--- NOTE | 2017-10-28 07:18 | XR ---
EXAMINATION TYPE: XR chest 1V portable DATE OF EXAM: 10/28/2017 CLINICAL HISTORY: Difficulty breathing progress study. TECHNIQUE: Single AP portable upright view of the chest is obtained. COMPARISON: Chest x-ray from one day earlier and older studies. FINDINGS: A tracheostomy tube and right-sided PICC line are stable in appearance. There is bibasilar opacity consistent with atelectasis and/or infiltrate and probable small left pleural effusion. Ther e is persistent cardiomegaly with central vascular congestion. No sizable pneumothorax is seen. [place] us structures are intact. IMPRESSION: Overall stable findings, cardiomegaly with central vascular congestion and small left p leural effusion with bibasilar atelectasis and/or infiltrate all are redemonstrated.
[2017-10-28 09:08] VITALS: TEMP 100.4
[2017-10-28] MEDS: CHLORHEXIDINE GLUCONATE 15 ML CUP MUCOUS MEM SCH (09:12)
[2017-10-28] MEDS: PANTOPRAZOLE 40 MG/10 ML VIAL IV SCH (09:12)
[2017-10-28] MEDS: HEPARIN SODIUM,PORCINE 5,000 UNIT/ML 1 ML VIAL SQ SCH ×2 (09:12→16:36)
--- NOTE | 2017-10-28 10:06 | P.PN ---
Subjective Progress Note Date: 10/28/17 This is a 52-year-old male patient, diabetic, known history of severe peripheral neuropathy, charcoal joints and previous amputation of the right foot , partial, presented with septic arthritis of the left ankle. I initially saw this patient in consultation today of 10/12/2017. He was in intensive care unit. The patient was resuscitated aggressively with IV fluids and pressors and antibiotics. He was taken to the operating room and he underwent an initial incision and drainage and the wound VAC was applied. At that time the cultures were all positive for MSSA including a possible culture. Since then, the patient had a complicated postoperative course and the patient became septic , hypoxic and he went into a component of an ARDS. He was intubated and placed on a mechanical ventilator. A repeat I&D of the left ankle was done and necrotic bone removed on 10/16/2017. He continued to failed weaning. During the course of his treatment, the patient had to be sedated with Diprivan and on few occasions he had to be also paralyzed. Nimbex was used for paralysis. Clevidipine was used for pressure control. A PICC line was inserted in the right upper extremity. The antibiotic was ultimately switched to Kefzol. Infectious diseases on the case. The wound VAC was removed per IDs recommendation. During the course of the treatment the patient had to be also trached and a pack to was also inserted. He had a delayed recovery in terms of his mentation. The patient had a CAT scan of the brain that came back negative and ultimately his mental status gradually improved. EEG was done and showed diffuse disturbance in the cerebral function yet at this point in time the patient is awake and following commands and answering questions. On 10/26/2017 , the patient was having leaks around his tracheostomy tube and a extra long Shiley tracheostomy tube was inserted by Dr. Zepeda. The PEG tube is functional for now. In terms of his vent support, currently the patient is on assist control mode at the rate of 26, tidal volume 500, FiO2 of 50% and a PEEP of 5. The patient is hemodynamically stable on no pressors. The patient is currently receiving tube feeds in the form of vital high protein. He is not achieved his goals yet. He is stooling and has adequate bowel sounds. Antibiotic coverage is with IV 2 g every 8 hours. He is receiving a dose of Lasix 20 mg IV push every daily basis. He is on Levemir insulin for blood sugar control at 50 units a day along with a sliding scale coverage with NovoLog. He is on IV Synthroid. He is receiving LR at the rate of 20 mL's an hour. Sodium level from today is 148 and white cell count at 12.1. Objective - Vital Signs Vital signs: Vital Signs Temp 100.4 F H 10/28/17 08:00 Pulse 92 10/28/17 09:00 Resp 25 H 10/28/17 09:00 BP 141/68 10/28/17 09:00 Pulse Ox 95 10/28/17 09:00 Intake & Output 10/27/17 10/28/17 10/28/17 18:59 06:59 18:59 Intake Total 612.496 600 160 Output Total 1999 945 195 Balance -1387.504 -345 -35 Weight 148.8 kg 144.7 kg 144.7 kg Intake: IV 240 240 60 Lactated Ringers 1,000 ml 240 240 60 @ 20 mls/hr IV .Q24H [facility] Rx#:[id number] Intake, IV Titration 172.496 Amount Magnesium Sulfate-D5w Pmx 100 1 gm In Dextrose/Water 1 100ml.bag @ 100 mls/hr IVPB Q1H [facility] Rx#: [id number] Propofol 1,000 mg In 72.496 Empty Bag 1 bag @ Per Protocol IV .Q0M [facility] Rx#: [id number] Tube Feeding 140 270 100 Other 60 90 Output: Urine 1999 945 195 Other: Voiding Method Indwelling Catheter Indwelling Catheter # Bowel Movements 1 2 2 ABP, PAP, CO, CI - Last Documented Arterial Blood Pressure 137/80 - Exam No acute distress, awake and alert, with a midline tracheostomy tube and a PEG tube, the patient is an extra long Shiley #[address]. No evidence of any air leak around the tube. HEENT examination is grossly unremarkable. Mucous membranes are moist. Neck supple. Full range of motion. No adenopathy thyromegaly or neck vein distention. Midline tracheostomy tube noted. Cardiovascular examination reveals regular rhythm rate. S1-S2 normal. No S3 or S4. No discernible murmur noted. Lungs reveal diminished breath sounds. Coarse bilateral rhonchi are noted. Breath sounds are equal bilaterally. No crackles. Abdomen soft bowel sounds are heard. No masses or tenderness. PEG tube noted. Extremities are intact. Both lower extremities are wrapped in Geoffrey wraps. Also examination cannot be done. Patient has diffuse edema both in the upper and lower extremity and edema is also present the scrotum. Pulses are diminished at the present. No cyanosis. No clubbing. The wound in the left lower extremity is packed with Opticell AG and wet to dry. Skin is without rash or lesion.Examination of the skin revealed no evidence of significant rashes, suspicious appearing nevi or other concerning lesions. Neurologic examination is brief but nonfocal. The patient is moving all 4 extremities without any limitation. - Labs CBC & Chem 7: 10/28/17 03:57 10/28/17 03:57 Labs: Abnormal Lab Results - Last 24 Hours (Table) 10/27/17 10/27/17 10/27/17 Range/Units 12:18 18:18 23:21 WBC (3.8-10.6) k/uL RBC (4.30-5.90) m/uL Hgb (13.0-17.5) gm/dL Hct (39.0-53.0) % MCHC (31.0-37.0) g/dL Plt Count (150-450) k/uL ABG pCO2 (35-45) mmHg ABG pO2 (83-108) mmHg ABG HCO3 (21-25) mmol/L ABG Total CO2 (19-24) mmol/L Sodium (137-145) mmol/L Potassium (3.5-5.1) mmol/L Carbon Dioxide (22-30) mmol/L BUN (9-20) mg/dL Creatinine (0.66-1.25) mg/dL Glucose (74-99) mg/dL POC Glucose (mg/dL) 144 H 184 H 164 H (75-99) mg/dL 10/28/17 10/28/17 10/28/17 Range/Units 03:57 03:57 04:58 WBC 12.1 H (3.8-10.6) k/uL RBC 3.55 L (4.30-5.90) m/uL Hgb 9.8 L (13.0-17.5) gm/dL Hct 32.0 L (39.0-53.0) % MCHC 30.5 L (31.0-37.0) g/dL Plt Count 567 H (150-450) k/uL ABG pCO2 51 H (35-45) mmHg ABG pO2 77 L (83-108) mmHg ABG HCO3 35 H (21-25) mmol/L ABG Total CO2 36 H (19-24) mmol/L Sodium 148 H (137-145) mmol/L Potassium 3.3 L (3.5-5.1) mmol/L Carbon Dioxide 32 H (22-30) mmol/L BUN 35 H (9-20) mg/dL Creatinine 0.60 L (0.66-1.25) mg/dL Glucose 131 H (74-99) mg/dL POC Glucose (mg/dL) (75-99) mg/dL 10/28/17 Range/Units 05:44 WBC (3.8-10.6) k/uL RBC (4.30-5.90) m/uL Hgb (13.0-17.5) gm/dL Hct (39.0-53.0) % MCHC (31.0-37.0) g/dL Plt Count (150-450) k/uL ABG pCO2 (35-45) mmHg ABG pO2 (83-108) mmHg ABG HCO3 (21-25) mmol/L ABG Total CO2 (19-24) mmol/L Sodium (137-145) mmol/L Potassium (3.5-5.1) mmol/L Carbon Dioxide (22-30) mmol/L BUN (9-20) mg/dL Creatinine (0.66-1.25) mg/dL Glucose (74-99) mg/dL POC Glucose (mg/dL) 118 H (75-99) mg/dL Assessment and Plan Plan: Assessment 1 Acute septic arthritis of the left ankle, status post left ankle irrigation with debridement, postoperative day #16 and subsequent irrigation did the debridement, postop day #12. The patient has been septic with MSSA and the patient is currently on IV. The Wound Is Being Dressed and Taking Care Of. 2 Postop day #5, status post tracheostomy and PEG tube placement. 3 Acute hypoxemic respiratory failure requiring intubation and mechanical ventilation with failure to wean from mechanical ventilation despite daily interruption of sedation and spontaneous breathing trial, and subsequently the patient had a tracheostomy tube in place for prolonged respiratory failure and weaning. 4 Failure to wean from mechanical ventilation, 5 Acute severe sepsis with positive blood cultures for methicillin sensitive Staphylococcus 6 Mental status changes, set secondary to sepsis encephalopathy, improved 7 Moderate ARDS with a PF ratio of 176, secondary to above 8 Diabetes mellitus with poor sugar control on an outpatient basis and currently the patient's blood sugar is under better control 9 Severe peripheral neuropathy, which Charcot joints 10 History of chronic wounds and ulcerations of the lower extremities with cellulitis 11 Charcot joints 12 Morbid obesity 13 Hypertension 14 Hyperlipidemia 15 Hypothyroidism 16 Acute kidney injury, recovered 17 Hypernatremia Plan Continue vent support, continue wound care, continue IV Kefzol. The patient will be a perfect candidate for [facility]. He will need further wound care and gradually weaning off the mechanical ventilator. Advance diet as tolerated. Monitor the sodium levels. Replace the potassium. May need to stop the Lasix for now and further decision on diuresis can be made at [facility] . Critical care eval. >30 min. Time with Patient: Greater than 30
[2017-10-28 10:14] VITALS: BMI 42.0
--- NOTE | 2017-10-28 10:41 | XR ---
EXAMINATION TYPE: XR abdomen 1V DATE OF EXAM: 10/28/2017 10:36 AM CLINICAL HISTORY: Abdominal distention. TECHNIQUE: Two AP portable supine views of the abdomen are obtained. COMPARISON: Abdominal x-ray and CT November 27, 2011. FINDINGS: Gas is seen in nondistended stomach. Scattered gas is seen in slightly prominent small aminta l loops. Gas is seen in prominent proximal right and transverse colonic loops. Gas and fecal material is seen in nondistended distal colonic loops. There is right pelvic surgical clip and phleboliths. C holecystectomy clips are now present. Visualized osseous structures are intact. Lung bases are only m inimally imaged. IMPRESSION: Overall nonspecific but still favor nonobstructive bowel gas pattern.
[2017-10-28] MEDS: ONDANSETRON 4 MG/2 ML VIAL IVP PRN (10:43)
[2017-10-28] MEDS: ceFAZolin IN SWFI 2 GM/20 ML SYRINGE IVP SCH ×2 (10:44→16:36)
[2017-10-28] MEDS: FUROSEMIDE 10 MG/ML 2 ML VIAL IV SCH (10:45)
[2017-10-28 11:51] LABS: Glucose,Whole Blood 153 mg/dL (75-99)
--- NOTE | 2017-10-28 15:40 | P.DS ---
Providers Date of admission: 10/11/17 22:44 Attending physician: Edu Schumacher Consults: 10/11/17 22:54 Consult Physician Stat Consulting Provider: Dre Mcneil Consult Reason/Comments: Left ankle septic arthritis Do you want consulting provider notified?: Yes Consult Physician Stat Consulting Provider: Urban Mi Consult Reason/Comments: Septic Arthritis Do you want consulting provider notified?: Yes, Notify in am 10/12/17 15:55 Consult Physician Routine Consulting Provider: Sarthak Daniel Consult Reason/Comments: critical care Do you want consulting provider notified?: Yes 10/14/17 18:26 Consult Physician Routine Consulting Provider: Durga Torres Consult Reason/Comments: HEIDI Do you want consulting provider notified?: Yes 10/21/17 08:54 Consult Physician Routine Consulting Provider: Darwin Zepeda Consult Reason/Comments: Tracheostomy and Peg tube insertion Do you want consulting provider notified?: Yes Primary care physician: [facility] Course: 52-year-old admitted to ICU secondary to sepsis leading to acute respiratory distress syndrome patient remains intubated on ventilator is being managed by victims advocate clerk/specialist patient underwent irrigation and the bride meant of the left ankle twice during this hospitalization. Patient has MSSA in the joint and patient is presently on ceftezole and for that reason. Patient is intubated sedated and patient is on Precedex with anticipation of extubation tomorrow. 10/20/2017 Patient remains intubated patient is on high-dose of IV insulin and requiring large amounts of sedation remains in hypoxic respiratory failure had a low- grade fever today if he continues to have low-grade fevers or has a high-grade fever repeat blood cultures will be obtained 10/21/2017 Patient maintains intubated, still remains on 70% FiO2 and victims advocate clerk/specialist his considering tracheostomy and PEG tube placement. Patient had low-grade fevers yesterday. Patient is on paralytic agents now with fairly well-controlled blood pressure, clevidipine was discontinued 10/22/2017 Patient's FiO2 has come down to 50% today no other significant changes were made to vent. 10/23/2017 Patient is going for a tracheostomy and PEG tube placement patient remains an FiO2 of 55% plan is to this can you paralytics after tracheostomy. 10/24/2017 Patient had a tracheostomy and PEG tube placement remains on 40% FiO2 and PEEP of 12 didn't have a bowel movement for a few days we'll try lactulose and senna through PEG tube. No significant change in his overall clinical condition plan is to wean off propofol 10/25/2017 Patient is being transitioned to subcutaneous insulin patient is waking up slowly taking a while because the patient was on sedation for long period of time patient vent settings seem to be better with PEEP of 8 now FiO2 of 40%. 10/26/2017 Patient failed spontaneous breathing trial, later found to have nonfunctional tracheostomy tube which was replaced today. Patient is still sedated for rather tracheostomy tube and I evaluated him. Patient is back on 100% FiO2 which will be tapered down PEEP of 10 10/28/2079 Patient is doing much better awake did move his bowel, blood sugars are stable, tolerated BiPAP for couple hours today. 10/28/2017 Patient is awake does have some residuals because of which patient may need Reglan. Patient did have a bowel movement today does have a trach and PEG in place on PEEP of 8 FiO2 of 40% patient blood sugars are well controlled today. Please refer to the victims advocate clerk/specialist progress note for details . PHYSICAL EXAMINATION: GENERAL: Patient has tracheostomy now, morbidly obese PEG tube with continuous feeding presently at rate of 10 mL which can be increased these are being held because of the residuals, patient is awake and alert no significant drainage from the tracheostomy HEENT: Pupils are round and equally reacting to light. EOMI. No scleral icterus. No conjunctival pallor. Normocephalic, atraumatic. No pharyngeal erythema. No thyromegaly. CARDIOVASCULAR: S1 and S2 present. No murmurs, rubs, or gallops. PULMONARY: Chest is clear to auscultation, no wheezing or crackles. ABDOMEN: Soft, nontender, nondistended, normoactive bowel sounds. No palpable organomegaly. MUSCULOSKELETAL: Patient left leg is wrapped in Geoffrey bandages EXTREMITIES: No cyanosis, clubbing, or pedal edema. NEUROLOGICAL: Patient is moving all 4 limbs SKIN: No rashes. Assessment and Plan Plan: Acute septic arthritis of the left ankle, status post left ankle irrigation with debridement, twice during this hospitalization and patient has MSSA and patient is on ceftezolin. Infectious disease is recommending antibiotic therapy through 11/28/2017 Acute hypoxemic respiratory failure requiring intubation and mechanical ventilation with failure to wean from mechanical ventilation, possibility of ARDS patient is on prolonged mechanical ventilation patient did a tracheostomy and PEG tube in place.patient is a tolerating spontaneous breathing presently on assist-control ventilation Acute severe sepsis with positive blood cultures for methicillin sensitive Staphylococcus Mental status changes, set secondary to sepsis encephalopathy, resolved now Diabetes mellitus: patient was transitioned to subcutaneous insulin but his blood sugars drop but because patient is not getting much of to feedings as he was having high residuals. on Lantus at nighttime to 50 units and sliding scale for now, to feedings at 10 mL per hour, once every feeding rate goes up is blood sugars are expected to go . Patient was on about 300 units of insulin at home Severe peripheral neuropathy History of chronic wounds and ulcerations of the lower extremities with cellulitis Charcot joints Morbid obesity Hypertension Hyperlipidemia Hypothyroidism Acute kidney injury Constipation Patient Condition at Discharge: Stable Plan - Discharge Summary Discharge Rx Participant: Yes New Discharge Prescriptions: New Acetaminophen Tab [Tylenol] 650 mg PO Q6HR PRN tab PRN Reason: Mild Pain Or Fever > 100.5 ceFAZolin [Kefzol] 2 gm IVP Q8HR syringe Heparin Sodium,Porcine [Heparin Sodium] 5,000 unit SQ Q8HR vial Insulin Aspart [NovoLOG (formulary)] 0 unit SQ Q6H vial Insulin Detemir [Levemir] 50 unit SQ HS syr Ipratropium-Albuterol Nebulize [Duoneb 0.5 mg-3 mg/3 ml Soln] 3 ml INHALATION RT-Q4H ampul.neb Ondansetron [Zofran] 4 mg IVP Q4HR PRN vial PRN Reason: Nausea And Vomiting Promethaz-Cod 6.25-10 mg/5 ml [Phenergan with Codeine] 5 ml PO Q6H PRN ml PRN Reason: Cold Symptoms Sennosides-Docusate Sodium [Senokot-S] 1 each PO BID PRN tab PRN Reason: Constipation Omeprazole [PriLOSEC] 40 mg PO AC-BRKFST #30 capsule. Continue Lovastatin 40 mg PO HS Metoprolol Tartrate 25 mg PO BID Pregabalin [Lyrica] 100 mg PO TID Ramipril 10 mg PO DAILY HYDROcodone/APAP 5-325MG [[place] 5-325] 1 tab PO TID PRN PRN Reason: Pain Gabapentin 600 mg PO DAILY Levothyroxine Sodium [Synthroid] 150 mcg PO DAILY Discontinued metFORMIN HCL 1,000 mg PO DAILY Insulin Glargine [Lantus] 100 unit SQ BID Ibuprofen [Motrin] 800 mg PO Q6HR PRN PRN Reason: Pain Empagliflozin [Jardiance] 25 mg PO DAILY Insulin Lispro [humaLOG] 60 units SQ AC-TID hydrALAZINE HCL [Apresoline] 100 mg PO BID Discharge Medication List Lovastatin 40 mg PO HS 08/10/14 [History] Metoprolol Tartrate 25 mg PO BID 08/13/14 [History] Pregabalin [Lyrica] 100 mg PO TID 08/13/14 [History] Gabapentin 600 mg PO DAILY 10/11/17 [History] HYDROcodone/APAP 5-325MG [[place] 5-325] 1 tab PO TID PRN 10/11/17 [History] Levothyroxine Sodium [Synthroid] 150 mcg PO DAILY 10/11/17 [History] Ramipril 10 mg PO DAILY 10/11/17 [History] Acetaminophen Tab [Tylenol] 650 mg PO Q6HR PRN tab 10/28/17 [Rx] Heparin Sodium,Porcine [Heparin Sodium] 5,000 unit SQ Q8HR vial 10/28/17 [Rx] Insulin Aspart [NovoLOG (formulary)] 0 unit SQ Q6H vial 10/28/17 [Rx] Insulin Detemir [Levemir] 50 unit SQ HS syr 10/28/17 [Rx] Ipratropium-Albuterol Nebulize [Duoneb 0.5 mg-3 mg/3 ml Soln] 3 ml INHALATION RT -Q4H ampul.neb 10/28/17 [Rx] Omeprazole [PriLOSEC] 40 mg PO AC-BRKFST #30 capsule. 10/28/17 [Rx] Ondansetron [Zofran] 4 mg IVP Q4HR PRN vial 10/28/17 [Rx] Promethaz-Cod 6.25-10 mg/5 ml [Phenergan with Codeine] 5 ml PO Q6H PRN ml 10/28 [Rx] Sennosides-Docusate Sodium [Senokot-S] 1 each PO BID PRN tab 10/28/17 [Rx] ceFAZolin [Kefzol] 2 gm IVP Q8HR syringe 10/28/17 [Rx] Follow up Appointment(s)/Referral(s): Rj Haynes DO [Primary Care Provider] - 1-2 days [facility]
[2017-10-28 16:07] VITALS: PULSE 83
[2017-10-28] MEDS: SENNOSIDES-DOCUSATE SODIUM 1 EACH TAB PO SCH (16:10)
[2017-10-28 17:41] LABS: Glucose,Whole Blood 166 mg/dL (75-99)
[2017-10-28 18:21] VITALS: BP 163/82; RESP 25
--- NOTE | 2017-10-28 20:51 | P.PN ---
Subjective Progress Note Date: 10/28/17 Principal diagnosis: Sepsis 52-year-old male has a long-standing history of diabetes mellitus type 2 poorly controlled and history of a prior diabetic foot ulceration to the right foot which resulted in a great toe amputation. The patient is been having some difficulties with his left ankle and following with the orthopedic surgeon. Because of some discomfort at the joint he was measured and given a new bracing device for the foot and ankle. However grommet on the dorsum of the foot resulted in a bit of an ulcer and he was concerned and sought care in the office. The patient had difficulty making the appointment because of the weather and has significant distance from work to the office and reschedule. When he came to the office earlier this week the ulceration had healed and he was feeling better but was still having some swelling to the ankle area. He had no fever or chills at the time of presentation to the office, but did have the swelling to the ankle area for which she had a specialty boot that have been designed that he was not wearing that day. He however presents to the emergency center because of the sudden onset of inability to bear weight to the ankle because of the amount of pain that he started to have. Shortly thereafter he became febrile and has had a rapid decline in his status with evidence of sepsis and presentation to the intensive care unit. The case is discussed with the radio equipment repairer as well as the orthopedic foot and ankle specialist. Given his rapid decline in status he'll go to the operating room this afternoon. The patient is acutely ill with fever chills generalized weakness and malaise and some alteration of his mental status 10/13/2017 patient remains in intensive care unit with ongoing sepsis. Appears to have acute lung injury and also has an elevation of his creatinine likely with an acute renal injury also occurring from his sepsis. Laboratories revealed evidence of staph aureus await final susceptibility. Follow blood cultures in process reasonable cultures are positive. Patient continues to have some ongoing fevers and is admitted of nausea with the response to Zofran. He is still in a warm flushed phase of sepsis and hopefully now that he has been resuscitated will have further improvement of his status. 10/14/2017 patient does have some improvement today. He is not hypotensive not requiring vasopressors but is still on high flow oxygen for his acute lung injury. He has had fevers but down to 99.9 still feels poorly and has significant pain of the left foot and ankle area. 10/15/2017 the patient had deterioration of his respiratory status last night with his acute lung injury and developing early ARDS. He required intubation with sedation and mechanical ventilation. With improved sedation he is quite comfortable today and is synchronous with the vent with adequate oxygenation and improved blood gas. The patient is quite comfortable at this time and receiving tube feeds for his nutritional needs. Fever and leukocytosis are trending down 10/16/2017 is noted the patient remains ventilated as well as with intubation and sedation. He is quite comfortable today. Has been taking back to the operating room for further evaluation of the medial aspect of the right ankle, some infected bone was debrided but no further extensive pockets of purulence were found. Wound VAC applied. 10/17/2017 patient has had a weaning trial today but it was not successful in counseling. Remains intubated sedated and mechanically ventilated. He does to do quite comfortable. Wound vacs are in place after the debridement of yesterday to the left foot. Fever has trended down and he is hemodynamically stable 10/18/2017 the patient had an attempt for a weaning trial but this however did not go well the patient became significantly hypertensive. With multiple medications this is now settled. Today the wound vacs will be changed further care will be given. Is much more calm this afternoon and hopefully further weaning trials will go well over the next few days. The fever has resolved and there is now a negative blood culture. 2017 patient remains in ICU intubated sedated and paralyzed due to the ARDS which is resulting in snf respiratory failure. 10/22/2017 reveals the patient to have a slightly improved ventilatory status he is down to 55% FiO2 and PEEP is at 12. He has been evaluated by Dr. Zepeda for tracheostomy and PEG tube placement in the near future. The patient seems to be quite comfortable and with the current sedation and paralysis. Ventilating well 10/23/2017 patient is post-tracheostomy and PEG tube placement today.the patient is being readied for transition to a ventilator facility. 10/24/2017 patient is comfortable on current level of sedation. Ongoing attempts for reduction of level of sedation and ventilation support her in process. No new wounds. 10/25/2017 patient now with some improvement in that the sedation has been discontinued and has not caused elevated BP or respirations as in the last few days.he has a sedation weaned through the day he opened eyes, tracked the observers and followed commands.he even smiled for the observer. 10/26/2017 was improving today but developed tracheal occlusion and required change of trach now doing much better. 10/27/2017 patient is further improvement with the resolution of the tracheal occlusion. He is awake alert and interactive. His comfortable. 5 70,018 patient is improved and will be [facility]. Objective - Vital Signs Vital signs: Vital Signs Temp 100.4 F H 10/28/17 08:00 Pulse 83 10/28/17 17:00 Resp 25 H 10/28/17 17:00 BP 163/82 10/28/17 17:00 Pulse Ox 97 10/28/17 17:00 Intake & Output 10/28/17 10/28/17 10/29/17 06:59 18:59 06:59 Intake Total 600 250 Output Total 945 730 Balance -345 -480 Weight 144.7 kg 144.7 kg Intake: IV 240 120 Lactated Ringers 1,000 ml 240 120 @ 20 mls/hr IV .Q24H [facility] Rx#:[id number] Tube Feeding 270 130 Other 90 Output: Urine 945 730 Other: Voiding Method Indwelling Catheter Indwelling Catheter # Bowel Movements 2 1 ABP, PAP, CO, CI - Last Documented Arterial Blood Pressure 137/80 - Exam 52-year-old male presents to Hospital feeling acutely ill found to have evidence of fever and then rapidly developed sepsis, HEENT: Anicteric conjunctiva are pink and moist nasal mucosa grossly intact without significant lesions, sedation now removed, tracheostomy intact without bleeding Neck: The neck is supple without significant lymphadenopathy or thyromegaly. Lungs: Good bilateral air entry with harsh breath sounds Heart: regular with an audible S1 and S2 soft S4 There is no significant murmur click or rub, PMI was nondisplaced. Abdomen: Obese Positive bowel sounds soft and nontender without palpable masses or organomegaly. There was no guarding or rebound. Extremities: The upper extremities have excellent pulses they are symmetric, no significant petechiae or telangiectasia. No splinter hemorrhages were noted. Right lower extremity has evidence of the prior great toe amputation which is well healed. Left lower extremity reveals evidence of the surgical incisions with silver dressings in place. There is still some swelling but the extensive swelling at the ankle has started to improve. There is no inguinal lymphadenopathy. Neuro: no longer sedated following commands - Labs CBC & Chem 7: 10/28/17 03:57 10/28/17 12:22 Labs: Abnormal Lab Results - Last 24 Hours (Table) 10/27/17 10/28/17 10/28/17 Range/Units 23:21 03:57 03:57 WBC 12.1 H (3.8-10.6) k/uL RBC 3.55 L (4.30-5.90) m/uL Hgb 9.8 L (13.0-17.5) gm/dL Hct 32.0 L (39.0-53.0) % MCHC 30.5 L (31.0-37.0) g/dL Plt Count 567 H (150-450) k/uL ABG pCO2 (35-45) mmHg ABG pO2 (83-108) mmHg ABG HCO3 (21-25) mmol/L ABG Total CO2 (19-24) mmol/L Sodium 148 H (137-145) mmol/L Potassium 3.3 L (3.5-5.1) mmol/L Carbon Dioxide 32 H (22-30) mmol/L BUN 35 H (9-20) mg/dL Creatinine 0.60 L (0.66-1.25) mg/dL Glucose 131 H (74-99) mg/dL POC Glucose (mg/dL) 164 H (75-99) mg/dL 10/28/17 10/28/17 10/28/17 Range/Units 04:58 05:44 11:49 WBC (3.8-10.6) k/uL RBC (4.30-5.90) m/uL Hgb (13.0-17.5) gm/dL Hct (39.0-53.0) % MCHC (31.0-37.0) g/dL Plt Count (150-450) k/uL ABG pCO2 51 H (35-45) mmHg ABG pO2 77 L (83-108) mmHg ABG HCO3 35 H (21-25) mmol/L ABG Total CO2 36 H (19-24) mmol/L Sodium (137-145) mmol/L Potassium (3.5-5.1) mmol/L Carbon Dioxide (22-30) mmol/L BUN (9-20) mg/dL Creatinine (0.66-1.25) mg/dL Glucose (74-99) mg/dL POC Glucose (mg/dL) 118 H 153 H (75-99) mg/dL 10/28/17 Range/Units 17:40 WBC (3.8-10.6) k/uL RBC (4.30-5.90) m/uL Hgb (13.0-17.5) gm/dL Hct (39.0-53.0) % MCHC (31.0-37.0) g/dL Plt Count (150-450) k/uL ABG pCO2 (35-45) mmHg ABG pO2 (83-108) mmHg ABG HCO3 (21-25) mmol/L ABG Total CO2 (19-24) mmol/L Sodium (137-145) mmol/L Potassium (3.5-5.1) mmol/L Carbon Dioxide (22-30) mmol/L BUN (9-20) mg/dL Creatinine (0.66-1.25) mg/dL Glucose (74-99) mg/dL POC Glucose (mg/dL) 166 H (75-99) mg/dL Laboratory Results WBC 12.1 k/uL (3.8-10.6) H 10/28/17 03:57 RBC 3.55 m/uL (4.30-5.90) L 10/28/17 03:57 Hgb 9.8 gm/dL (13.0-17.5) L 10/28/17 03:57 Hct 32.0 % (39.0-53.0) L 10/28/17 03:57 MCV 90.2 fL (80.0-100.0) 10/28/17 03:57 MCH 27.5 pg (25.0-35.0) 10/28/17 03:57 MCHC 30.5 g/dL (31.0-37.0) L 10/28/17 03:57 RDW 14.0 % (11.5-15.5) 10/28/17 03:57 Plt Count 567 k/uL (150-450) H 10/28/17 03:57 Neutrophils % 80 % 10/26/17 04:30 Neutrophils % (Manual) 82 % 10/21/17 06:00 Band Neutrophils % 8 % 10/20/17 05:00 Lymphocytes % 11 % 10/26/17 04:30 Lymphocytes % (Manual) 9 % 10/21/17 06:00 Monocytes % 5 % 10/26/17 04:30 Monocytes % (Manual) 5 % 10/21/17 06:00 Eosinophils % 2 % 10/26/17 04:30 Eosinophils % (Manual) 3 % 10/20/17 05:00 Basophils % 1 % 10/26/17 04:30 Basophils % (Manual) 1 % 10/20/17 05:00 Metamyelocytes % 4 % 10/20/17 05:00 Myelocytes % 4 % 10/21/17 06:00 Neutrophils # 10.1 k/uL (1.3-7.7) H 10/26/17 04:30 Neutrophils # (Manual) 13.45 k/uL (1.3-7.7) H 10/21/17 06:00 Lymphocytes # 1.4 k/uL (1.0-4.8) 10/26/17 04:30 Lymphocytes # (Manual) 1.48 k/uL (1.0-4.8) 10/21/17 06:00 Monocytes # 0.7 k/uL (0-1.0) 10/26/17 04:30 Monocytes # (Manual) 0.82 k/uL (0-1.0) 10/21/17 06:00 Eosinophils # 0.2 k/uL (0-0.7) 10/26/17 04:30 Eosinophils # (Manual) 0.53 k/uL (0-0.7) 10/20/17 05:00 Basophils # 0.1 k/uL (0-0.2) 10/26/17 04:30 Basophils # (Manual) 0.18 k/uL (0-0.2) 10/20/17 05:00 Metamyelocytes # (Man) 0.70 k/uL (0) H 10/20/17 05:00 Myelocytes # (Manual) 0.66 k/uL (0) H 10/21/17 06:00 Nucleated RBCs 0 /100 WBC (0-0) 10/21/17 06:00 Manual Slide Review Performed 10/21/17 06:00 Toxic Granulation Present 10/20/17 05:00 Large Platelets Present 10/21/17 06:00 Polychromasia Present 10/21/17 06:00 Hypochromasia Moderate 10/28/17 03:57 ESR 25 mm/hr (0-15) H 10/12/17 07:29 Sample Site Right Radial 10/28/17 04:58 ABG pH 7.45 (7.35-7.45) 10/28/17 04:58 ABG pCO2 51 mmHg (35-45) H 10/28/17 04:58 ABG pO2 77 mmHg (83-108) L 10/28/17 04:58 ABG HCO3 35 mmol/L (21-25) H 10/28/17 04:58 ABG Total CO2 36 mmol/L (19-24) H 10/28/17 04:58 ABG O2 Saturation 95.7 % (94-97) 10/28/17 04:58 ABG Base Excess 10.6 mmol/L 10/28/17 04:58 Cr Test Yes 10/28/17 04:58 ABG Lactic Acid 1.0 mmol/L (0.5-1.6) 10/12/17 18:06 FiO2 50 % 10/28/17 04:58 Sodium 148 mmol/L (137-145) H 10/28/17 03:57 Potassium 3.9 mmol/L (3.5-5.1) 10/28/17 12:22 Chloride 104 mmol/L (98-107) 10/28/17 03:57 Carbon Dioxide 32 mmol/L (22-30) H 10/28/17 03:57 Anion Gap 12 mmol/L 10/28/17 03:57 BUN 35 mg/dL (9-20) H 10/28/17 03:57 Creatinine 0.60 mg/dL (0.66-1.25) L 10/28/17 03:57 Est GFR (CKD-EPI)AfAm >90 (>60 ml/min/1.73 sqM) 10/28/17 03:57 Est GFR (CKD-EPI)NonAf >90 (>60 ml/min/1.73 sqM) 10/28/17 03:57 Glucose 131 mg/dL (74-99) H 10/28/17 03:57 POC Glucose (mg/dL) 166 mg/dL (75-99) H 10/28/17 17:40 POC Glu Transmission Repairer ID Rona Cottrell 10/28/17 17:[address] Glu mg/dL 214 10/12/17 07:29 Hemoglobin A1c 9.1 % (4.0-6.0) H 10/12/17 07:29 Plasma Lactic Acid Ron 1.5 mmol/L (0.7-2.0) 10/11/17 21:10 Uric Acid 5.6 mg/dL (3.5-8.5) 10/11/17 21:10 Calcium 9.8 mg/dL (8.4-10.2) 10/28/17 03:57 Phosphorus 3.7 mg/dL (2.5-4.5) 10/28/17 03:57 Magnesium 2.2 mg/dL (1.6-2.3) 10/28/17 03:57 AST 96 U/L (17-59) H 10/13/17 19:55 ALT 58 U/L (21-72) 10/13/17 19:55 C-Reactive Protein 45.1 mg/L (<10.0) H 10/11/17 21:10 Urine Color Yellow 10/15/17 11:30 Urine Appearance Clear (Clear) 10/15/17 11:30 Urine pH 6.0 (5.0-8.0) 10/15/17 11:30 Ur Specific [place] 1.018 (1.001-1.035) 10/15/17 11:30 Urine Protein 1+ (Negative) H 10/15/17 11:30 Urine Glucose (UA) 3+ (Negative) H 10/15/17 11:30 Urine Ketones Negative (Negative) 10/15/17 11:30 Urine Blood Small (Negative) H 10/15/17 11:30 Urine Nitrite Negative (Negative) 10/15/17 11:30 Urine Bilirubin Negative (Negative) 10/15/17 11:30 Urine Urobilinogen <2.0 mg/dL (<2.0) 10/15/17 11:30 Ur Leukocyte Esterase Negative (Negative) 10/15/17 11:30 Urine RBC <1 /hpf (0-5) 10/15/17 11:30 Urine WBC 3 /hpf (0-5) 10/15/17 11:30 Urine Mucus Rare /hpf (None) H 10/15/17 11:30 Blood Type O Positive 10/21/17 13:30 Blood Type Recheck No 10/21/17 13:30 Antibody Screen NEGATIVE 10/21/17 13:30 Spec Expiration Date 10/24/2017232910/21/17 13:30 Assessment and Plan (1) Septic arthritis of left ankle Narrative/Plan: 52-year-old male presents the emergency center with inability to bear weight to his left ankle. The patient has had some new orthotic boot manufactured in a developed a small ulcer on the dorsum of the left foot. This apparently was from a grommet from an orthotic. This was completely healed and was evaluated but was still having ongoing difficulties with ankle area. Is actively following up with orthopedic foot and ankle. The patient does have a boot that was designed that he was not wearing when he came to the office and understands it is important that he wears this when he is at work to protect his ankle from the Charcot changes. Patient however now has high-grade fever chills leukocytosis and laboratories: Positive blood culture with gram-positive cocci. The patient did have aspiration per orthopedic ankle grossly purulent material was found. Originally the plan was to go to the operating him in the morning but as the patient felt worsening sepsis he is no scheduled operating room this afternoon for the incision and drainage of this abscess. Deep cultures and pathology will also be sent. Antibiotic therapy is altered from vancomycin to daptomycin. In hopes to have a more rapid bacteriocidal activity given his rapidly declining status. Enhance glucose control be important part of his healing. Leukocytosis record related to his current sepsis. There is evidence of possible culture and he will require follow blood cultures in the morning. He was monitored for any persistence of his bacteremia. There will be a coordinated effort between orthopedic ankle and infectious disease as to the care at discharge. 10/13/2017 reveals the patient still needs intensive care unit after surgery with ongoing sepsis. Continues to have fever and leukocytosis and difficulties with acute lung injury and now elevated creatinine to 2.0. Patient continues to be resuscitated and has had some improvement but minimal at this point in time. He will continue with maneuvers to improve his fever maintain his hydration and antibiotic therapy continues with daptomycin for both staph aureus and MRSA, blood culture and aspirate from the ankle are still showing staph aureus final susceptibility is pending. Patient aware that if he improves he will be receiving a jg completed a long course of IV antibiotic therapy for this extensive infection. Leukocytosis directly related to the sepsis 10/14/2017 the patient remains in intensive care unit, high flow oxygen is being utilized for his acute lung injury. His creatinine has increased further is now 2.0. Urine output is adequate. He is symptomatically stable is having difficulties with shortness of breath. Pain at the foot and ankle is predictable but the significant swelling history improving after surgical incision and drainage. Ulceration is treated with a medical history dressing. If there is no further marked improvement by tomorrow the patient will likely go back to the operating him for further incision and drainage to the site. The case is discussed with the orthopedic surgeon. 10/15/2017 the patient is noted had a decline of his status and his required intubation with sedation mechanical ventilation and is now much more comfortable. His pulmonary status is improved with the intervention. He has not requiring vasopressor therapy. We'll do blood cultures verified MSSA and antibiotic therapy was transitioned to high dose cefazolin. The patient is evaluated in conjunction with the orthopedic surgeon and the plan is for the patient to have further debridement of the ankle tomorrow to ensure there is complete drainage of any abscess at that joint site given the progression of his underlying illness. Fortunately he has not hemodynamic stable and is having improvement of his leukocytosis. We'll expect as a sepsis improves his pulmonary injury will improve also. His creatinine peaked at 2.10 now down to 2.0 and nephrology has evaluated. Follow blood cultures to ensure clearance of his bacteremia. Echocardiogram without evidence of vegetations. Is not the case is discussed with the orthopedic surgeon as well as the patient' s . 10/16/2017 the patient's been taking to the operating room today for further debridement of the left ankle. Some necrotic bone was debrided but no further large pockets of abscess were seen. Wound vacs are applied. We'll continue his high-dose antibiotic therapy for his MSSA infection from the septic arthritis left ankle. There are several evidences of improvement today, still requires no vasopressor therapy. We'll expect as he starting to improve we need to start in the next day or so. Once he is evidence of clearance of his bacteremia will need IV access placed for his long-term IV antibiotic therapy. 10/17/2017 patient is hemodynamically stable without acute no difficulties today. He over did not do well with a weaning trial. Will be tried on a daily basis as per the manager employee relations. He is hemodynamic stable and his adequate urinary output. We'll continue high-dose cefazolin and supportive care. It is likely that the wound vacs removed tomorrow with further evaluation of the ankle wounds at that time. Supportive care continues he's had a slight improvement of his creatinine and his sodium is improving. 10/18/2017 the patient remains medically stable and that her vasopressor therapy. Insulin drip is reduced. He did not do well with weaning trial today with significant hypertensive response. With the medications is better at this time. Acute renal failure has resolved leukocytosis is trending to improvement. And there is no negative blood culture from October 17. If the patient improves we'll transition to alternative IV access was for a dual lumen PICC line to be placed this will help us transition to his outpatient intravenous antibiotic therapy when he is improved. The wound VAC is removed at this point in time. Saline moistened opticell silver is applied without difficulty. This will be changed every other day. Pulmonary critical care will continue to move toward extubation. 10/21/2017 patient continues to have respiratory failure 10/21/2017 patient continues to have respiratory failure with ongoing intubation sedation and mechanical ventilation he is hemodynamically stable. Remains on insulin drip. Vital respiratory failure the patient will undergo tracheostomy and PEG tube placement later this week. 10/22/2017 patient remains intubated sedated paralyzed and mechanically ventilated. Tracheostomy is to happen soon. His MSSA sepsis is under control this point in time is developed ARDS and will require long-term weaning. Fever and leukocytosis have improved no other infections are noted local wound care to the ankle reveals evidence of the improving surgical wounds. 10/23/2017 the patient is now status Constantly ongoing plans for long-term weaning. Local wound care is with silver dressing.as infection is improving there will Be a possibility for negative pressure therapy system. Currently plan 6 weeks of intravenous antibiotic therapy for his MSSA sepsis. Pulmonary is following regarding his ARDS. Remains on an insulin drip through most the day. 10/24/2017 patient continues for the slow weaning process. Goal of the next 48 hours as further reduction of his propofol requirements so that he will become a candidate for long-term vent facility for his long-term weaning that will be required. The extensive infection to the left ankle area has been surgically debrided on 2 occasions and the leg is much improved. Bactrim has been resolved for quite some time. Is moderate ARDS and showing some slight improvement to the day today. Plan intravenous antibiotic therapy until 201710/25/2017 the patient has had further improvement today. Sedation has been held he's much And he is now much more awake and following commands. He has moderate ARDS is showing improvement and that his FiO2 is down to 40% his PEEP is 8. Patient is progressing well and likely will be able to go to a ventilator facility in the near future. He has noted his antimicrobial therapy continues through 11/28/2017 for his MSSA sepsis and septic arthritis of the left ankle Charcot joint. Local wound care continues with the Optisol silver with marked improvement to the site. 10/26/2017 had trach site problems earlier now resolved and is returning to better vent settings and sedation wearing off and following commands and smiling.Complete course of IVABX for the MSSA sepsis form septic arthritis await improvement for transfer to [facility]. 10/27/2017 patient is having further improvement. He did have some difficulty earlier today that is now resolving. He is sitting in the chair position of the hospital ICU bed. Looks comfortable. Denies shortness of breath. He's not having any pain. Mentation as noted is much improved. IV antibiotic therapy continues through 11/28/2017 and will be completed while he is at [facility] 10/28/2017 patient continues to have improvement. [facility] Complete his intravenous antibiotic therapy with Ancef 2 g IV piggyback every 8 hours and 11/28/2017. His first care as infections improving may reconsider negative pressure therapy. Following the wound center after [facility]. Status: Acute Code(s): M00.9 - PYOGENIC ARTHRITIS, UNSPECIFIED SNOMED Code(s ): 45007885 (2) Sepsis Status: Acute Priority: Medium Code(s): A41.9 - SEPSIS, UNSPECIFIED ORGANISM SNOMED Code(s): 74009539 (3) Poorly controlled type 2 diabetes mellitus with complication Status: Chronic Code(s): E11.8 - TYPE 2 DIABETES MELLITUS WITH UNSPECIFIED COMPLICATIONS; E11.65 - TYPE 2 DIABETES MELLITUS WITH HYPERGLYCEMIA SNOMED Code(s): 88422879
== END 2017-10-28 18:46 | disposition still patient (30) | DRG 3 ==
LOC: EC 20:31 → 5MS5E 22:44 → 6ICU 10-12 17:15
PROVIDERS: ADMIT Hospitalist; ATTEND Hospitalist
PROC: 0JBR0ZZ Excision of Left Foot Subcutaneous Tissue and Fascia, Open Approach (ICD-10-PCS; 2017-10-12)
PROC: 0S9G3ZX Drainage of Left Ankle Joint, Percutaneous Approach, Diagnostic (ICD-10-PCS; 2017-10-12)
PROC: 05HN33Z Insertion of Infusion Device into Left Internal Jugular Vein, Percutaneous Approach (ICD-10-PCS; 2017-10-12)
PROC: 4A133B1 Monitoring of Arterial Pressure, Peripheral, Percutaneous Approach (ICD-10-PCS; 2017-10-12)
PROC: 4A133J1 Monitoring of Arterial Pulse, Peripheral, Percutaneous Approach (ICD-10-PCS; 2017-10-12)
PROC: 5A1955Z Respiratory Ventilation, Greater than 96 Consecutive Hours (ICD-10-PCS; 2017-10-14)
PROC: 0BH17EZ Insertion of Endotracheal Airway into Trachea, Via Natural or Artificial Opening (ICD-10-PCS; 2017-10-14)
PROC: 0JBR0ZZ Excision of Left Foot Subcutaneous Tissue and Fascia, Open Approach (ICD-10-PCS; 2017-10-16)
PROC: 02HV33Z Insertion of Infusion Device into Superior Vena Cava, Percutaneous Approach (ICD-10-PCS; 2017-10-21)
PROC: 0DHA8UZ Insertion of Feeding Device into Jejunum, Via Natural or Artificial Opening Endoscopic (ICD-10-PCS; 2017-10-23)
PROC: 0B110F4 Bypass Trachea to Cutaneous with Tracheostomy Device, Open Approach (ICD-10-PCS; principal; 2017-10-23 08:30)
PROC: 0BW18FZ Revision of Tracheostomy Device in Trachea, Via Natural or Artificial Opening Endoscopic (ICD-10-PCS; 2017-10-26)
DX: A41.01 Sepsis due to Methicillin susceptible Staphylococcus aureus (principal); N17.0 Acute kidney failure with tubular necrosis; R65.21 Severe sepsis with septic shock; G93.41 Metabolic encephalopathy; G93.1 Anoxic brain damage, not elsewhere classified; J80 Acute respiratory distress syndrome; M00.9 Pyogenic arthritis, unspecified; E87.4 Mixed disorder of acid-base balance; L03.116 Cellulitis of left lower limb; Z68.41 Body mass index [BMI] 40.0-44.9, adult; E87.0 Hyperosmolality and hypernatremia; J95.03 Malfunction of tracheostomy stoma; E87.1 Hypo-osmolality and hyponatremia; E87.6 Hypokalemia; L97.529 Non-pressure chronic ulcer of other part of left foot with unspecified severity; E11.42 Type 2 diabetes mellitus with diabetic polyneuropathy; E11.621 Type 2 diabetes mellitus with foot ulcer; E11.69 Type 2 diabetes mellitus with other specified complication; E11.65 Type 2 diabetes mellitus with hyperglycemia; E11.610 Type 2 diabetes mellitus with diabetic neuropathic arthropathy; E11.21 Type 2 diabetes mellitus with diabetic nephropathy; K59.00 Constipation, unspecified; E78.5 Hyperlipidemia, unspecified; E66.01 Morbid (severe) obesity due to excess calories; E03.9 Hypothyroidism, unspecified; I10 Essential (primary) hypertension; K21.9 Gastro-esophageal reflux disease without esophagitis; K44.9 Diaphragmatic hernia without obstruction or gangrene; E11.29 Type 2 diabetes mellitus with other diabetic kidney complication; F17.201 Nicotine dependence, unspecified, in remission; M19.90 Unspecified osteoarthritis, unspecified site; M54.9 Dorsalgia, unspecified; Z89.411 Acquired absence of right great toe; Z79.4 Long term (current) use of insulin; Z86.14 Personal history of Methicillin resistant Staphylococcus aureus infection; Z87.19 Personal history of other diseases of the digestive system; Z90.89 Acquired absence of other organs; Z98.52 Vasectomy status; Z82.49 Family history of ischemic heart disease and other diseases of the circulatory system; Z83.3 Family history of diabetes mellitus; Z82.5 Family history of asthma and other chronic lower respiratory diseases; Z79.899 Other long term (current) drug therapy; Z79.891 Long term (current) use of opiate analgesic; Z79.1 Long term (current) use of non-steroidal anti-inflammatories (NSAID); Z79.890 Hormone replacement therapy; Z88.1 Allergy status to other antibiotic agents; Z88.2 Allergy status to sulfonamides
CPT/HCPCS: 31624; 36415; 36569; 36600; 43246; 70450; 71045; 71046; 74018; 76937; 80048; 81001; 82805; 83036; 83605; 83735; 84100; 84132; 84295; 84450; 84460; 84550; 85025; 85027; 85652; 86140; 86850; 86900; 86901; 87040; 87070; 87075; 87077; 87186; 87205; 88304; 88311; 93306; 94002; 94003; 94640; 94660; 95819; 96365; 96367; 96375; 96376; 99285

== ENCOUNTER 2017-12-15 00:14 | Inpatient (IN) | payer BC ==
--- NOTE | 2017-12-15 01:09 | ED ---
General Adult HPI - General Source: patient, RN notes reviewed, old records reviewed Mode of arrival: wheelchair Limitations: no limitations <Levar Arora - Last Filed: 12/15/17 01:05> <Durga Reese - Last Filed: 12/15/17 02:41> - General Chief complaint: Recheck/Abnormal Lab/Rx Stated complaint: Post op complications Time Seen by Provider: 12/15/17 00:29 - History of Present Illness Initial comments: 52 yo male presenting for evaluation of left foot swelling and erythema. Patient has had a prolonged course, including infected left foot with sepsis requiring mechanical ventilation and tracheostomy. Patient was subsequently discharged to longterm. He has been on IV antibiotics for the past 2 months. He states that his swelling and erythema has worsened. He has had some purulent drainage from his incision sites. He is also noticed some swelling into his calf. There was concern for DVT. No chest pain or shortness of breath. No abdominal pain. No fever or chills. Patient does not report worsening pain secondary to peripheral neuropathy. Past medical history of hypertension, hypercholesterolemia, and diabetes. (Levar Arora) - Related Data Home Medications Medication Instructions Recorded Confirmed Lovastatin 40 mg PO HS 08/10/14 10/11/17 Metoprolol Tartrate 25 mg PO BID 08/13/14 10/11/17 Pregabalin [Lyrica] 100 mg PO TID 08/13/14 10/11/17 Gabapentin 600 mg PO DAILY 10/11/17 10/11/17 HYDROcodone/APAP 5-325MG [[place] 1 tab PO TID PRN 10/11/17 10/11/17 5-325] Levothyroxine Sodium [Synthroid] 150 mcg PO DAILY 10/11/17 10/11/17 Ramipril 10 mg PO DAILY 10/11/17 10/11/17 Previous Rx's Medication Instructions Recorded Acetaminophen Tab [Tylenol] 650 mg PO Q6HR PRN tab 10/28/17 Heparin Sodium,Porcine [Heparin 5,000 unit SQ Q8HR vial 10/28/17 Sodium] Insulin Aspart [NovoLOG 0 unit SQ Q6H vial 10/28/17 (formulary)] Insulin Detemir [Levemir] 50 unit SQ HS syr 10/28/17 Ipratropium-Albuterol Nebulize 3 ml INHALATION RT-Q4H ampul.jahaira 10/28/17 [Duoneb 0.5 mg-3 mg/3 ml Soln] Omeprazole [PriLOSEC] 40 mg PO AC-BRKFST #30 capsule. 10/28/17 Ondansetron [Zofran] 4 mg IVP Q4HR PRN vial 10/28/17 Promethaz-Cod 6.25-10 mg/5 ml 5 ml PO Q6H PRN ml 10/28/17 [Phenergan with Codeine] Sennosides-Docusate Sodium 1 each PO BID PRN tab 10/28/17 [Senokot-S] ceFAZolin [Kefzol] 2 gm IVP Q8HR syringe 10/28/17 Moxifloxacin HCl 400 mg PO DAILY #10 tab 11/23/17 Allergies Allergy/AdvReac Type Severity Reaction Status Date / Time sulfamethoxazole AdvReac Severe Nausea, Verified 12/15/17 00:25 [From Bactrim] Dizziness, Headaches trimethoprim [From Bactrim] AdvReac Severe Nausea, Verified 12/15/17 00:25 Dizziness, Headaches Review of Systems ROS Other: All systems not noted in ROS Statement are negative. <Levar Arora - Last Filed: 12/15/17 01:05> ROS Other: All systems not noted in ROS Statement are negative. <Durga Reese - Last Filed: 12/15/17 02:41> ROS Statement: Those systems with pertinent positive or pertinent negative responses have been documented in the HPI. Past Medical History Past Medical History: Diabetes Mellitus, GERD/Reflux, Hyperlipidemia, Hypertension, Thyroid Disorder Additional Past Medical History / Comment(s): Morbid obesity, diabetic, hypertension, hyperlipidemia, hypothyroidism, previous history of right foot osteomyelitis requiring partial amputation, history of wounds in the lower extremities most recent of which was created by a boots and the patient was treated and the wound had healed, charcoal joints, hiatal hernia History of Any Multi-Drug Resistant Organisms: MRSA Date of last positivie culture/infection: 07/2014 MDRO Source:: RT FOOT Past Surgical History: Cholecystectomy, Hernia Repair, Orthopedic Surgery, Tonsillectomy Additional Past Surgical History / Comment(s): MULT. I&D LEFT FOOT, vasectomy, rhinoplasty, tendon surgery right wrist. amputation of right great toe. Past Anesthesia/Blood Transfusion Reactions: No Reported Reaction Past Psychological History: No Psychological Hx Reported Smoking Status: Former smoker Past Alcohol Use History: Occasional Past Drug Use History: None Reported - Past Family History Father Family Medical History: Coronary Artery Disease (CAD), Diabetes Mellitus, Renal Disease Mother Family Medical History: COPD, Diabetes Mellitus <Levar Arora Gerardo - Last Filed: 12/15/17 01:05> General Exam Limitations: no limitations General appearance: alert, in no apparent distress Head exam: Present: atraumatic, normocephalic Eye exam: Present: normal appearance, PERRL ENT exam: Present: normal exam Neck exam: Present: normal inspection, tenderness Respiratory exam: Present: normal lung sounds bilaterally. Absent: respiratory distress Cardiovascular Exam: Present: regular rate, normal rhythm GI/Abdominal exam: Present: soft. Absent: distended, tenderness Extremities exam: Present: other (Left foot, is warm, erythematous, surgical sites: Granulation tissue and some very little discharge. There is significant swelling and erythema on the medial aspect of the foot.) Back exam: Present: normal inspection. Absent: full ROM, tenderness Neurological exam: Present: alert, oriented X3, CN II-XII intact. Absent: motor sensory deficit Psychiatric exam: Present: normal affect, normal mood Skin exam: Present: warm, dry, intact. Absent: cyanosis, diaphoretic <Levar Arora Gerardo - Last Filed: 12/15/17 01:05> Vital Signs 12/15/17 00:21 Temperature 99 F Pulse Rate 98 Respiratory 20 Rate Blood Pressure 156/87 O2 Sat by Pulse 96 Oximetry Medical Decision Making - Lab Data Result diagrams: 12/15/17 01:40 12/15/17 01:40 <Durga Reese - Last Filed: 12/15/17 02:41> - Lab Data Lab Results 12/15/17 12/15/17 12/15/17 Range/Units 01:40 01:40 01:40 WBC 10.4 (3.8-10.6) k/uL RBC 4.36 (4.30-5.90) m/uL Hgb 11.8 L (13.0-17.5) gm/dL Hct 35.8 L (39.0-53.0) % MCV 82.1 (80.0-100.0) fL MCH 27.0 (25.0-35.0) pg MCHC 32.9 (31.0-37.0) g/dL RDW 15.0 (11.5-15.5) % Plt Count 435 (150-450) k/uL Neutrophils % 77 % Lymphocytes % 13 % Monocytes % 5 % Eosinophils % 3 % Basophils % 1 % Neutrophils # 8.0 H (1.3-7.7) k/uL Lymphocytes # 1.4 (1.0-4.8) k/uL Monocytes # 0.5 (0-1.0) k/uL Eosinophils # 0.4 (0-0.7) k/uL Basophils # 0.1 (0-0.2) k/uL Sodium 139 (137-145) mmol/L Potassium 4.4 (3.5-5.1) mmol/L Chloride 100 (98-107) mmol/L Carbon Dioxide 26 (22-30) mmol/L Anion Gap 13 mmol/L BUN 25 H (9-20) mg/dL Creatinine 0.70 (0.66-1.25) mg/dL Est GFR (CKD-EPI)AfAm >90 (>60 ml/min/1.73 sqM) Est GFR (CKD-EPI)NonAf >90 (>60 ml/min/1.73 sqM) Glucose 235 H (74-99) mg/dL Plasma Lactic Acid Ron 1.6 (0.7-2.0) mmol/L Calcium 9.4 (8.4-10.2) mg/dL C-Reactive Protein 36.5 H (<10.0) mg/L Disposition <Levar Arora - Last Filed: 12/15/17 01:05> Is patient prescribed a controlled substance at d/c from ED?: No <Durga Reese - Last Filed: 12/15/17 02:41> Clinical Impression: Cellulitis, Poorly controlled type 2 diabetes mellitus with complication Disposition: ADMITTED IP TO THIS HOSP Condition: Fair Referrals: Rj Haynes DO [Primary Care Provider] - 1-2 days
--- NOTE | 2017-12-15 02:03 | XR ---
EXAMINATION TYPE: XR foot complete LT DATE OF EXAM: 12/15/2017 COMPARISON: 10/11/2017 HISTORY: Open sores TECHNIQUE: 3 views FINDINGS: There is extensive fragmentation of the bones of the midfoot. There is soft tissue swelling around the entire foot. There are extensive destructive changes involving the navicular and the talu s. IMPRESSION: Significant destructive changes in the midfoot have progressed compared to 10/11/2017 and are consistent with neuropathic arthropathy and possible osteomyelitis. There is increased soft tissu e swelling compared to old exam.
[2017-12-15 02:04] LABS: Basophils # (A) 0.1 k/uL (0-0.2); Basophils % (A) 1 %; Eosinophils # (A) 0.4 k/uL (0-0.7); Eosinophils % (A) 3 %; HCT 35.8 % (39.0-53.0); HGB 11.8 gm/dL (13.0-17.5); Lymphocytes # (A) 1.4 k/uL (1.0-4.8); Lymphocytes % (A) 13 %; MCHC 32.9 g/dL (31.0-37.0); MCV 82.1 fL (80.0-100.0); Mean Platelet Volume 6.5; Monocytes # (A) 0.5 k/uL (0-1.0); Monocytes % (A) 5 %; Neutrophils % (A) 77 %; Platelet Count 435 k/uL (150-450); RBC 4.36 m/uL (4.30-5.90); WBC 10.4 k/uL (3.8-10.6)
[2017-12-15 02:06] LABS: Anion Gap 13 mmol/L; Blood Urea Nitrogen 25 mg/dL (9-20); C Reactive Protein 36.5 mg/L (<10.0); Calcium 9.4 mg/dL (8.4-10.2); Carbon Dioxide 26 mmol/L (22-30); Chloride 100 mmol/L (98-107); Glucose 235 mg/dL (74-99); Potassium 4.4 mmol/L (3.5-5.1); Sodium 139 mmol/L (137-145)
--- NOTE | 2017-12-15 02:25 | US ---
EXAMINATION TYPE: US venous doppler duplex LE LT DATE OF EXAM: 12/15/2017 12:58 AM COMPARISON: CLINICAL HISTORY: Pain. Left foot redness and swelling. No hx of blood clots. Not on blood thinners . SIDE PERFORMED: Left TECHNIQUE: The lower extremity deep venous system is examined utilizing real time linear array sonog abrahan with graded compression, doppler sonography and color-flow sonography. VESSELS IMAGED: External Iliac Vein (EIV) Common Femoral Vein Deep Femoral Vein Greater Saphenous Vein * Femoral Vein Popliteal Vein Small Saphenous Vein * Proximal Calf Veins (* superficial vessels) Left Leg: Appears negative for DVT. In left groin, multiple prominent lymph nodes seen. Largest = 4.8 x 1.3 cm IMPRESSION: No evidence of deep venous thrombosis in the left leg. Enlarged left inguinal lymph node measures 4.8 x 1.4 cm.
[2017-12-15] MEDS ORDERED: VANCOMYCIN IV PER PHARMACY 1 EACH MISC MISCELLANE PRN (02:32)
[2017-12-15] MEDS ORDERED: INSULIN REGULAR 100 UNIT/ML VIAL SQ STA (02:32)
[2017-12-15] MEDS ORDERED: NALOXONE 0.4 MG/ML 1 ML VIAL IV PRN (02:34)
[2017-12-15] MEDS ORDERED: ACETAMINOPHEN TAB 325 MG TAB PO PRN (02:34)
[2017-12-15] MEDS ORDERED: ONDANSETRON 4 MG/2 ML VIAL IVP PRN (02:34)
[2017-12-15] MEDS ORDERED: SENNOSIDES-DOCUSATE SODIUM 1 EACH TAB PO PRN (02:38)
[2017-12-15] MEDS ORDERED: SODIUM CHLORIDE 0.9% 1,000 ML IV SCH (02:45)
[2017-12-15] MEDS ORDERED: VANCOMYCIN 2,000 MG in SODIUM CHLORIDE 0.9% 500 ML IVPB ONE (03:00)
[2017-12-15 04:32] VITALS: BMI 38.2
[2017-12-15] MEDS ORDERED: ceFAZolin 2,000 MG in DEXTROSE/WATER 1 50ML.BAG IVPB SCH (06:00)
[2017-12-15 06:23] LABS: Glucose,Whole Blood 156 mg/dL (75-99)
[2017-12-15] MEDS ORDERED: ONDANSETRON 4 MG/2 ML VIAL IVP STA (06:28)
[2017-12-15] MEDS ORDERED: SODIUM CHLORIDE 0.9% 1,000 ML IV ONE (07:38)
[2017-12-15] MEDS ORDERED: NOREPINEPHRIN 16 MG-0.9%NS PMX 16 MG/250 ML ML IV SCH (07:45)
[2017-12-15 08:11] LABS: Glucose,Whole Blood 116 mg/dL (75-99)
[2017-12-15] MEDS: PIPERACILLIN-TAZOBACTAM 3.375 GM in DEXTROSE/WATER 1 50ML.BAG IVPB SCH ×2 (08:12→17:37)
[2017-12-15] MEDS ORDERED: LISINOPRIL 20 MG TAB PO SCH (09:00)
[2017-12-15] MEDS: SODIUM CHLORIDE 0.9% 1,000 ML IV SCH ×2 (09:00→21:11)
[2017-12-15] MEDS ORDERED: METOPROLOL TARTRATE 25 MG TAB PO SCH (09:00)
[2017-12-15] MEDS ORDERED: PREGABALIN 50 MG CAP PO SCH (09:00)
[2017-12-15] MEDS: GABAPENTIN 300 MG CAP PO SCH (09:41)
[2017-12-15] MEDS: PANTOPRAZOLE 40 MG TABLET PO SCH (09:41)
[2017-12-15] MEDS: HEPARIN SODIUM,PORCINE 5,000 UNIT/ML 1 ML VIAL SQ SCH ×2 (09:41→17:28)
[2017-12-15] MEDS: DAPTOmycin 750 MG in SODIUM CHLORIDE 0.9% 50 ML IVPB SCH (09:56)
[2017-12-15] MEDS: LEVOTHYROXINE 75 MCG TAB PO SCH (10:06)
[2017-12-15] MEDS: PREGABALIN 100 MG CAP PO SCH ×3 (10:08→21:09)
[2017-12-15 12:16] LABS: Glucose,Whole Blood 174 mg/dL (75-99)
[2017-12-15] MEDS: INSULIN ASPART 100 UNIT/ML 1 ML 10 ML VIAL SQ SCH ×3 (12:41→21:10)
[2017-12-15 13:32] LABS: Magnesium 1.9 mg/dL (1.6-2.3); Phosphorus 3.6 mg/dL (2.5-4.5)
--- NOTE | 2017-12-15 14:17 | P.CNPUL ---
History of Present Illness Consult date: 12/15/17 Chief complaint: Hypotension/sepsis History of present illness: A 52-year-old male patient, known history of diabetes mellitus and charcot foot with previous history of diabetic ulceration of the lower extremities requiring amputation previous incision and drainage and the treatment of soft tissue infection and osteomyelitis. The patient comes in to the emergency department yesterday due to concerns of a recurrent infection in the left foot. The patient's medial malleolus area of the left foot is swollen and that and warm and this obviously raises the concern for recurrent infection. The patient has open wounds in the left foot however the base of the wound is covered with healthy remission tissue and there is no active drainage. Nevertheless there is an area of the medial malleolus extending to the left lower extremity area which is red and there is a concern of an underlying abscess formation/ cellulitis. For that reason the patient came in. The patient was admitted to the hospital. He was afebrile. No significant leukocytosis. He was given antibiotics including vancomycin. Fluids vancomycin treatment and within the first 10 minutes the patient developed an acute reaction. He became hypotensive and he became short of breath and flushed. The antibiotic was discontinued. The patient got moved to the intensive care unit. He is currently on pressors and 7 mics of levo for hemodynamic support. He was given a total of 2 L of IV fluids. Renal function is stable. The risk of 10.4. No significant bandemia. Covered and with a combination of Zosyn and daptomycin. ID consultation is in place. Surgical consultation is also been placed. Awake and alert. No altered mentation. No other complaint otherwise for now. Note that this patient was in the hospital back in September 2017 for an acute septic arthritis of the left ankle. At that time the patient underwent irrigation and debridement and the patient was found to have MSSA in the blood and wound. During the course of the treatment the patient had ARDS with acute hypoxic history failure requiring intubation mechanical ventilation and his treatment was prolonged and during the process of the patient required a tracheostomy tube insertion and PEG tube insertion. Ultimately the patient was weaned off and he was sent to [facility] and he was decannulated and currently his tracheostomy site has nicely healed. He was receiving outpatient antibiotics for a right upper extremity PICC line and he was given IV Rocephin which she completed on 11/28/2017. His been off antibiotics since. He is applying many honey to the open wound area and his left foot. Review of Systems For review of system was done and the positive findings are almost above in history of present illness Constitutional: Reports chills, Reports fatigue, Reports fever, Reports lethargy , Reports malaise, Reports weakness Eyes: denies blurred vision, denies bulging eye, denies decreased vision Ears: deny: decreased hearing, ear discharge, earache Ears, nose, mouth and throat: Denies headache, Denies sore throat Cardiovascular: Reports rapid heart beat, Reports shortness of breath Respiratory: Reports dyspnea Gastrointestinal: Denies abdominal pain, Denies diarrhea, Denies nausea, Denies vomiting Genitourinary: Reports as per HPI Musculoskeletal: Reports hot joints, Reports limitation of motion, Reports muscle weakness, Reports myalgias, Reports redness of joints Musculoskeletal: bilateral: ankle pain, ankle stiffness, ankle swelling Integumentary: Reports as per HPI, Reports color changes, Reports wounds Neurological: Reports weakness Psychiatric: Denies anxiety, Denies depression Endocrine: Denies fatigue, Denies weight change Past Medical History Past Medical History: Diabetes Mellitus, GERD/Reflux, Hyperlipidemia, Hypertension, Thyroid Disorder Additional Past Medical History / Comment(s): Morbid obesity, diabetic, hypertension, hyperlipidemia, hypothyroidism, previous history of right foot osteomyelitis requiring partial amputation, history of wounds in the lower extremities most recent of which was created by a boots and the patient was treated and the wound had healed, charcot joints, hiatal hernia, previous sepsis with MSSA complicated by ARDS and ventilator-dependent respiratory failure and prolonged mechanical ventilation/tracheostomy tube insertion and PEG tube insertion with subsequent removal. History of Any Multi-Drug Resistant Organisms: MRSA Date of last positivie culture/infection: 07/2014 MDRO Source:: RT FOOT Past Surgical History: Cholecystectomy, Hernia Repair, Orthopedic Surgery, Tonsillectomy Additional Past Surgical History / Comment(s): MULT. I&D LEFT FOOT, vasectomy, rhinoplasty, tendon surgery right wrist. amputation of right great toe. Past Anesthesia/Blood Transfusion Reactions: No Reported Reaction Past Psychological History: No Psychological Hx Reported Additional Psychological History / Comment(s): and lives in the family home with his and adult children. 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 No experience. No international travel. Stopped smoking several years ago. Denies alcohol abuse. No animal exposures Smoking Status: Former smoker Past Alcohol Use History: Occasional Additional Past Alcohol Use History / Comment(s): STARTED SMOKING AGE 12 QUIT 1984, SMOKED LESS THAN 1 PACK PER DAY Past Drug Use History: None Reported - Past Family History Father Family Medical History: Coronary Artery Disease (CAD), Diabetes Mellitus, Renal Disease Mother Family Medical History: COPD, Diabetes Mellitus Medications and Allergies Home Medications Medication Instructions Recorded Confirmed Type Lovastatin 40 mg PO HS 08/10/14 12/15/17 History Metoprolol Tartrate 25 mg PO BID 08/13/14 12/15/17 History Pregabalin [Lyrica] 100 mg PO TID 08/13/14 12/15/17 History HYDROcodone/APAP 5-325MG [[place] 1 tab PO QID 10/11/17 12/15/17 History 5-325] Levothyroxine Sodium [Synthroid] 150 mcg PO DAILY 10/11/17 12/15/17 History Ramipril 10 mg PO DAILY 10/11/17 12/15/17 History Calcium Carbonate [Tums] 500 mg PO DAILY PRN 12/15/17 12/15/17 History INSULIN LISPRO (humaLOG) [humaLOG] 10 units SQ TID-W/MEALS 12/15/17 12/15/17 History Ibuprofen 800 mg PO TID PRN 12/15/17 12/15/17 History Insulin Glargine [Lantus] 50 unit SQ HS 12/15/17 12/15/17 History metFORMIN HCL 1,000 mg PO DAILY 12/15/17 12/15/17 History Allergies Allergy/AdvReac Type Severity Reaction Status Date / Time sulfamethoxazole AdvReac Severe Nausea, Verified 12/15/17 12:07 [From Bactrim] Dizziness, Headaches trimethoprim [From Bactrim] AdvReac Severe Nausea, Verified 12/15/17 12:07 Dizziness, Headaches Physical Exam Vitals: Vital Signs Temp Pulse Pulse Resp BP BP Pulse Ox 12/15/17 12:30 98.9 F 86 16 121/74 95 12/15/17 12:00 77 95 10 L 94/57 96 12/15/17 11:30 81 12 98/53 97 12/15/17 11:00 85 14 98/60 94 L 12/15/17 10:30 87 17 102/61 93 L 12/15/17 10:00 88 26 H 99/70 96 12/15/17 09:30 88 16 110/70 96 12/15/17 09:00 97 20 96/57 95 12/15/17 08:30 94 19 111/59 96 12/15/17 08:10 98 27 H 72/49 96 12/15/17 08:05 102 H 24 72/49 99 12/15/17 08:00 103 H 95 12 72/49 96 12/15/17 07:58 99 12/15/17 07:40 106 H 22 70/44 100 12/15/17 07:30 108 H 19 69/44 99 12/15/17 07:20 114 H 22 78/45 99 12/15/17 07:10 113 H 18 60/42 100 12/15/17 07:00 112 H 18 72/37 99 12/15/17 06:59 29 H 12/15/17 06:40 99.3 F 119 H 29 H 92/51 99 12/15/17 05:15 110/72 12/15/17 05:00 75/52 12/15/17 03:42 98.6 F 82 16 146/83 94 L 12/15/17 00:21 99 F 98 20 156/87 96 Intake and Output 12/14/17 12/15/17 12/15/17 22:59 06:59 14:59 Intake Total 2720.5 Output Total 450 Balance 2270.5 Intake: IV 2470 Piperacillin-Tazobactam 3 50 .375 gm In Dextrose/Water 1 50ml.bag @ 12.5 mls/hr IVPB Q8HR [facility] Rx#: [id number] Sodium Chloride 0.9% 1, 200 000 ml @ 100 mls/hr IV . Q10H [facility] Rx#:[id number] Sodium Chloride 0.9% 1, 220 000 ml @ 20 mls/hr IV . Q24H [facility] Rx#:[id number] Sodium Chloride 0.9% 1, 2000 000 ml @ 999 mls/hr IV . Q1H1M ONE Rx#:[id number] Intake, IV Titration 0.5 Amount Norepinephrin 16 mg-0.9% 0.5 Ns Pmx 16 mg In 250 ml @ Titrate IV .Q0M [facility] Rx#: [id number] Oral 250 Output: Urine 450 Other: Weight 131.542 kg Patient awake and alert and nonacute distress.. He is morbidly obese. Head exam was generally normal. There was no scleral icterus or corneal arcus. Mucous membranes were moist. Neck was supple and without jugular venous distension, thyromegaly, or carotid bruits. Carotids were easily palpable bilaterally. There was no adenopathy. The scar of previous tracheostomy is over the anterior neck area and is dry clean and intact. Cardiac exam revealed the PMI to be normally situated and sized. The rhythm was regular and no extrasystoles were noted during several minutes of auscultation. The first and second heart sounds were normal and physiologic splitting of the second heart sound was noted. There were no murmurs, rubs, clicks, or gallops. Abdominal exam revealed normal bowel sounds. The abdomen was soft, non-tender, and without masses, organomegaly, or appreciable enlargement of the abdominal aorta. Examination of the extremities severe abnormalities. The patient has an area of erythema and warmth and redness along the right medial malleolus area extending to the distal right foot area. There are also open wounds the base of which is covered by health in relation tissue and this is mainly over the medial and the lateral aspect of the right foot. There is probably an ankle effusion. There is no palpable crepitation and there is no significant pain upon passive range of motion of the ankle. There is areas of amputation of the toes in the left foot. Neurologic the patient is awake and alert and there is no focal neurological deficits. 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 Patient received outpatient about x-ray PICC line in the right upper extremity and just completed the course of IV Rocephin 3 acute hypotension. Rule out underlying sepsis. Rule out side effects/ reaction to vancomycin. Currently on a combination of fluids and the patient received a total of 2 L of IV fluids and the patient is also receiving norepinephrine infusion 4 diabetes mellitus with diabetic peripheral neuropathy and Charcot joints 5 chronic wound and ulceration of the lower oximetry is bilaterally 6 morbid obesity with interval weight loss 7 hypertension 8 hyperlipidemia 9 hypothyroidism 10 recent hospitalization for sepsis complicated by respiratory failure/ARDS requiring intubation, mechanical ventilation and tracheostomy tube insertion Plan Consult infectious disease. Consult orthopedic surgery. Put the patient, initial Zosyn and daptomycin. Blood cultures. Monitor hemodynamics. Wean off pressors and discontinue if possible. Patient will be kept in ICU for further monitoring special that he is having low blood pressure. We will avoid the use of vancomycin. Mental status appropriate. The PICC line Site in the right approximately is clean. We'll continue to follow. Outpatient medication will be ordered resume.
--- NOTE | 2017-12-15 16:36 | P.CNOR ---
History of Present Illness - [facility] Consult date: 12/15/17 Requesting physician: Sarthak Daniel Consult reason: other (Left ankle/foot cellulitis suspected recurrent septic arthritis of left ankle) History of present illness: Patient is a very pleasant 52-year-old male who is seen and examined in the ICU for further evaluation of cellulitis of the left foot and ankle. Patient is well known to our service and has previously under gone irrigation and excisional debridement with placement of wound VAC by Dr. Mcneil in September 2017. Following surgical intervention, he was placed with a PICC line and has been receiving IV antibiotics over the past 2 months. He continues to follow with Dr. Mi in infectious disease. He states he felt he had been progressing well and has an appointment with Dr. Mi on 12/19/2017. He has a home nurse who came to see him yesterday. At that time he was experiencing some increased erythema and induration of the left medial heel. He has pain with palpation at this area. He is not currently experiencing any significant pain over his previous surgical sites. He states he presented to [facility] for further evaluation treatment. He was in the emergency department for approximately 4 hours. He was then transferred to the third floor. Shortly after being transferred, he had significant hypotension, was diaphoretic, and vomiting. A code was called. By the time the code team arrived his overall status had significantly improved. He was transferred to the ICU. Cultures are currently pending. Nursing states his systolic pressure was in the 60s the time of his hypotensive state. She states she is currently receiving 5 g of norepinephrine. He is not currently complaining of significant pain in his left ankle and foot except for the area of erythema over the left medial heel. He denies pain over the incision sites. He currently denies any other pain or discomfort in his body. His blood pressure is currently controlled. He was previously treated for sepsis at his last admission as well. Past Medical History Past Medical History: Diabetes Mellitus, GERD/Reflux, Hyperlipidemia, Hypertension, Thyroid Disorder Additional Past Medical History / Comment(s): Morbid obesity, diabetic, hypertension, hyperlipidemia, hypothyroidism, previous history of right foot osteomyelitis requiring partial amputation, history of wounds in the lower extremities most recent of which was created by a boots and the patient was treated and the wound had healed, charcot joints, hiatal hernia, previous sepsis with MSSA complicated by ARDS and ventilator-dependent respiratory failure and prolonged mechanical ventilation/tracheostomy tube insertion and PEG tube insertion with subsequent removal. 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 I&D LEFT FOOT, vasectomy, rhinoplasty, tendon surgery right wrist. amputation of right great toe. Past Anesthesia/Blood Transfusion Reactions: No Reported Reaction Past Psychological History: No Psychological Hx Reported Additional Psychological History / Comment(s): and lives in the family home with his and adult children. Works for the [employer] in [employer]. No experience. No international travel. Stopped smoking several years ago. Denies alcohol abuse. No animal exposures Smoking Status: Former smoker Past Alcohol Use History: Occasional Additional Past Alcohol Use History / Comment(s): STARTED SMOKING AGE 12 QUIT 1984, SMOKED LESS THAN 1 PACK PER DAY Past Drug Use History: None Reported - Past Family History Father Family Medical History: Coronary Artery Disease (CAD), Diabetes Mellitus, Renal Disease Mother Family Medical History: COPD, Diabetes Mellitus Medications and Allergies Home Medications Medication Instructions Recorded Confirmed Type Lovastatin 40 mg PO HS 08/10/14 12/15/17 History Metoprolol Tartrate 25 mg PO BID 08/13/14 12/15/17 History Pregabalin [Lyrica] 100 mg PO TID 08/13/14 12/15/17 History HYDROcodone/APAP 5-325MG [[place] 1 tab PO QID 10/11/17 12/15/17 History 5-325] Levothyroxine Sodium [Synthroid] 150 mcg PO DAILY 10/11/17 12/15/17 History Ramipril 10 mg PO DAILY 10/11/17 12/15/17 History Calcium Carbonate [Tums] 500 mg PO DAILY PRN 12/15/17 12/15/17 History INSULIN LISPRO (humaLOG) [humaLOG] 10 units SQ TID-W/MEALS 12/15/17 12/15/17 History Ibuprofen 800 mg PO TID PRN 12/15/17 12/15/17 History Insulin Glargine [Lantus] 50 unit SQ HS 12/15/17 12/15/17 History metFORMIN HCL 1,000 mg PO DAILY 12/15/17 12/15/17 History Allergies Allergy/AdvReac Type Severity Reaction Status Date / Time sulfamethoxazole AdvReac Severe Nausea, Verified 12/15/17 12:07 [From Bactrim] Dizziness, Headaches trimethoprim [From Bactrim] AdvReac Severe Nausea, Verified 12/15/17 12:07 Dizziness, Headaches Physical Examination Physical Exam: Patient is awake, alert, and oriented 3 Vital signs stable Good chest excursion with deep inspiration and expiration Abdomen soft nontender No signs or symptoms of DVT; no calf pain Significant swelling over the left foot and ankle Evidence of healing wounds over the medial anterior and lateral anterior left foot in which wounds continue to be incompletely healed Left lateral anterior foot wound has scabbed over Left medial anterior foot wound continues to be open with somewhat discharge present at the wound site No evidence of significant erythema or obvious sign of acute infection at the previous wound sites Evidence of erythema and induration with pain to palpation over the left medial and posterior heel and ankle Patient is able to perform dorsiflexion and plantarflexion of the left ankle next lying significant difficulty with flexion and extension of all toes of the left foot Active range of motion of the left knee without difficulty Results - Labs Labs: Abnormal Lab Results - Last 24 Hours (Table) 12/15/17 12/15/17 12/15/17 Range/Units 01:40 01:40 06:22 Hgb 11.8 L (13.0-17.5) gm/dL Hct 35.8 L (39.0-53.0) % Neutrophils # 8.0 H (1.3-7.7) k/uL BUN 25 H (9-20) mg/dL Glucose 235 H (74-99) mg/dL POC Glucose (mg/dL) 156 H (75-99) mg/dL C-Reactive Protein 36.5 H (<10.0) mg/L 12/15/17 12/15/17 Range/Units 08:10 12:13 Hgb (13.0-17.5) gm/dL Hct (39.0-53.0) % Neutrophils # (1.3-7.7) k/uL BUN (9-20) mg/dL Glucose (74-99) mg/dL POC Glucose (mg/dL) 116 H 174 H (75-99) mg/dL C-Reactive Protein (<10.0) mg/L H & H 12/15/17 Range/Units 01:40 Hgb 11.8 L (13.0-17.5) gm/dL Hct 35.8 L (39.0-53.0) % Result Diagrams: 12/15/17 01:40 12/15/17 01:40 Assessment and Plan Assessment: Assessment: Left foot cellulitis chronic currently on PICC line antibiotics Suspected recurrent septic arthritis of the left ankle Left medial heel pain with erythema and induration Acute hypotension with syncopal episode yesterday Poorly controlled diabetes mellitus Morbid obesity (1) Cellulitis of left ankle Current Visit: Yes Status: Acute Code(s): L03.116 - CELLULITIS OF LEFT LOWER LIMB SNOMED Code(s): 55225102 (2) Morbid obesity Current Visit: Yes Status: Acute Code(s): E66.01 - MORBID (SEVERE) OBESITY DUE TO EXCESS CALORIES SNOMED Code(s): 208291689 (3) Acute hypotension Current Visit: Yes Status: Acute Code(s): I95.9 - HYPOTENSION, UNSPECIFIED SNOMED Code(s): 17640868 (4) Poorly controlled type 2 diabetes mellitus with complication Current Visit: Yes Status: Chronic Code(s): E11.8 - TYPE 2 DIABETES MELLITUS WITH UNSPECIFIED COMPLICATIONS; E11.65 - TYPE 2 DIABETES MELLITUS WITH HYPERGLYCEMIA SNOMED Code(s): 78640329 (5) Septic arthritis of left ankle Current Visit: No Status: Acute Code(s): M00.9 - PYOGENIC ARTHRITIS, UNSPECIFIED SNOMED Code(s): 13554260 Plan: Plan: 1. Patient has been discussed in detail with Dr. Mcneil. Patient is known to have significant cellulitis of the left foot/ankle previously requiring irrigation and excisional debridement with placement of wound VAC. He is been on IV antibiotics with a PICC line. His incisions do appear to be healing but he experiencing new pain with erythema and induration at the left medial and posterior heel. After further discussion with Dr. Mcneil, we will plan to obtain an MRI of the left ankle for further evaluation. Dr. Mcneil plan a follow-up with the MRI results to determine appropriate plan of care. At this time we will continue with conservative treatment until following the MRI. Patient has been using therahoney over his incisions which he does feel is helping. Dressing changes may continue to be performed with therahoney and 4x4s. 2. Medicine and pulmonology will continue following the patient closely 3. Patient currently waiting for consultation with Dr. Mi in infectious disease 4. We will continue to follow patient closely Time with Patient: Less than 30
[2017-12-15] MEDS ORDERED: VANCOMYCIN 2,000 MG in SODIUM CHLORIDE 0.9% 500 ML IVPB SCH (17:00)
--- NOTE | 2017-12-15 17:22 | P.HPIM ---
History of Present Illness This is a pleasant 49 years old female with past medical history of diabetes mellitus, GERD, Anemia, hypertension, thyroid disease, morbid obesity, history of right testicular myelitis status post amputation and chocolates joint, history of MS SA sepsis completed by ARDS and respiratory failure when she had to be placed on ventilations tracheostomy and PEG tube. Patient's was transferred to long-term and recently got discharge from [place] over the last 3 weeks and he has have visiting nurse every other day. This time presents with possible worsening left foot infection and ankle, as the visiting nurse noticed some erythematous discolorations on the medial side of the left ankle. The rest of the chart, foods including an opening wound on the medial side of the foot looks the same as per patient After admissions while the patient was taken vancomycin he was found to be hypotensive and transferred to the ICU with pressors and besides IV fluids and antibiotic treatment is been already evaluated by intensive care unit specialist sponge packer. Suspicious for possible septic shock versus vancomycin reaction/side effects. Patient was started on Zosyn and daptomycin and infection is under orthopedic team will been called. On admissions his WBC was 10.4 K patient is afebrile. Hemoglobin 11.8. Platelets 435. Creatinine 0.7 sodium 139 lactic acid 1.6. Left foot x-ray shows destructive lesions of the mid foods worsened compared to 10/11/2017 with possible osteomyelitis. Venous Doppler was negative for DVT on the left side however left groin shows prominent lymph nodes Review of Systems Review of systems CONSTITUTIONAL: No fever, no malaise, no fatigue. HEENT: No recent visual problems or hearing problems. Denied any sore throat. CARDIOVASCULAR: No orthopnea, PND, no palpitations, no syncope. PULMONARY: No shortness of breath, no cough, no hemoptysis. GASTROINTESTINAL: No diarrhea, no nausea, no vomiting, no abdominal pain. Normoactive bowel sounds. NEUROLOGICAL: No headaches, no weakness, no numbness. HEMATOLOGICAL: Denies any bleeding or petechiae. GENITOURINARY: Denies any burning micturition, frequency, or urgency. MUSCULOSKELETAL/RHEUMATOLOGICAL: Denies any joint pain, swelling, or any muscle pain. ENDOCRINE: Denies any polyuria or polydipsia. Past Medical History Past Medical History: Diabetes Mellitus, GERD/Reflux, Hyperlipidemia, Hypertension, Thyroid Disorder Additional Past Medical History / Comment(s): Morbid obesity, diabetic, hypertension, hyperlipidemia, hypothyroidism, previous history of right foot osteomyelitis requiring partial amputation, history of wounds in the lower extremities most recent of which was created by a boots and the patient was treated and the wound had healed, charcot joints, hiatal hernia, previous sepsis with MSSA complicated by ARDS and ventilator-dependent respiratory failure and prolonged mechanical ventilation/tracheostomy tube insertion and PEG tube insertion with subsequent removal. History of Any Multi-Drug Resistant Organisms: MRSA Date of last positivie culture/infection: 07/2014 MDRO Source:: RT FOOT Past Surgical History: Cholecystectomy, Hernia Repair, Orthopedic Surgery, Tonsillectomy Additional Past Surgical History / Comment(s): MULT. I&D LEFT FOOT, vasectomy, rhinoplasty, tendon surgery right wrist. amputation of right great toe. Past Anesthesia/Blood Transfusion Reactions: No Reported Reaction Past Psychological History: No Psychological Hx Reported Additional Psychological History / Comment(s): and lives in the family home with his and adult children. Works for the [employer] in [employer]. No experience. No international travel. Stopped smoking several years ago. Denies alcohol abuse. No animal exposures Smoking Status: Former smoker Past Alcohol Use History: Occasional Additional Past Alcohol Use History / Comment(s): STARTED SMOKING AGE 12 QUIT 1984, SMOKED LESS THAN 1 PACK PER DAY Past Drug Use History: None Reported - Past Family History Father Family Medical History: Coronary Artery Disease (CAD), Diabetes Mellitus, Renal Disease Mother Family Medical History: COPD, Diabetes Mellitus Medications and Allergies Home Medications Medication Instructions Recorded Confirmed Type Lovastatin 40 mg PO HS 08/10/14 12/15/17 History Metoprolol Tartrate 25 mg PO BID 08/13/14 12/15/17 History Pregabalin [Lyrica] 100 mg PO TID 08/13/14 12/15/17 History HYDROcodone/APAP 5-325MG [[place] 1 tab PO QID 10/11/17 12/15/17 History 5-325] Levothyroxine Sodium [Synthroid] 150 mcg PO DAILY 10/11/17 12/15/17 History Ramipril 10 mg PO DAILY 10/11/17 12/15/17 History Calcium Carbonate [Tums] 500 mg PO DAILY PRN 12/15/17 12/15/17 History INSULIN LISPRO (humaLOG) [humaLOG] 10 units SQ TID-W/MEALS 12/15/17 12/15/17 History Ibuprofen 800 mg PO TID PRN 12/15/17 12/15/17 History Insulin Glargine [Lantus] 50 unit SQ HS 12/15/17 12/15/17 History metFORMIN HCL 1,000 mg PO DAILY 12/15/17 12/15/17 History Allergies Allergy/AdvReac Type Severity Reaction Status Date / Time sulfamethoxazole AdvReac Severe Nausea, Verified 12/15/17 12:07 [From Bactrim] Dizziness, Headaches trimethoprim [From Bactrim] AdvReac Severe Nausea, Verified 12/15/17 12:07 Dizziness, Headaches Physical Exam Vitals: Vital Signs Temp Pulse Pulse Resp BP BP Pulse Ox 12/15/17 16:30 73 15 127/68 94 L 12/15/17 16:00 98.9 F 82 16 107/63 98 12/15/17 15:30 73 13 115/67 97 12/15/17 15:00 72 12 127/60 97 12/15/17 14:30 81 18 131/64 97 12/15/17 14:00 82 14 116/58 95 12/15/17 13:30 75 13 105/54 93 L 12/15/17 13:00 86 14 113/67 92 L 12/15/17 12:30 98.9 F 86 16 121/74 95 12/15/17 12:00 77 95 10 L 94/57 96 12/15/17 11:30 81 12 98/53 97 12/15/17 11:00 85 14 98/60 94 L 12/15/17 10:30 87 17 102/61 93 L 12/15/17 10:00 88 26 H 99/70 96 12/15/17 09:30 88 16 110/70 96 12/15/17 09:00 97 20 96/57 95 12/15/17 08:30 94 19 111/59 96 12/15/17 08:10 98 27 H 72/49 96 12/15/17 08:05 102 H 24 72/49 99 12/15/17 08:00 103 H 95 12 72/49 96 12/15/17 07:58 99 12/15/17 07:40 106 H 22 70/44 100 12/15/17 07:30 108 H 19 69/44 99 12/15/17 07:20 114 H 22 78/45 99 12/15/17 07:10 113 H 18 60/42 100 12/15/17 07:00 112 H 18 72/37 99 12/15/17 06:59 29 H 12/15/17 06:40 99.3 F 119 H 29 H 92/51 99 12/15/17 05:15 110/72 12/15/17 05:00 75/52 12/15/17 03:42 98.6 F 82 16 146/83 94 L 12/15/17 00:21 99 F 98 20 156/87 96 Intake and Output 12/15/17 12/15/17 12/15/17 06:59 14:59 22:59 Intake Total 3160.5 246.597 Output Total 450 Balance 2710.5 246.597 Intake: IV 2670 200 Piperacillin-Tazobactam 3 50 .375 gm In Dextrose/Water 1 50ml.bag @ 12.5 mls/hr IVPB Q8HR [facility] Rx#: [id number] Sodium Chloride 0.9% 1, 400 200 000 ml @ 100 mls/hr IV . Q10H [facility] Rx#:[id number] Sodium Chloride 0.9% 1, 220 000 ml @ 20 mls/hr IV . Q24H [facility] Rx#:[id number] Sodium Chloride 0.9% 1, 2000 000 ml @ 999 mls/hr IV . Q1H1M [facility] Rx#:[id number] Intake, IV Titration 0.5 46.597 Amount Norepinephrin 16 mg-0.9% 0.5 46.597 Ns Pmx 16 mg In 250 ml @ Titrate IV .Q0M [facility] Rx#: [id number] Oral 490 Output: Urine 450 Other: Weight 131.542 kg GENERAL: The patient is alert and oriented x3, not in any acute distress. Well developed, well nourished. HEENT: Pupils are round and equally reacting to light. EOMI. No scleral icterus. No conjunctival pallor. Normocephalic, atraumatic. No pharyngeal erythema. No thyromegaly. CARDIOVASCULAR: S1 and S2 present. No murmurs, rubs, or gallops. PULMONARY: Chest is clear to auscultation, no wheezing or crackles. ABDOMEN: Soft, nontender, nondistended, normoactive bowel sounds. No palpable organomegaly. MUSCULOSKELETAL: No joint swelling or deformity. EXTREMITIES: No cyanosis, clubbing, or pedal edema. NEUROLOGICAL: Gross neurological examination did not reveal any focal deficits. SKIN: No rashes. Results CBC & Chem 7: 12/15/17 01:40 12/15/17 01:40 Labs: Abnormal Lab Results - Last 24 Hours (Table) 12/15/17 12/15/17 12/15/17 Range/Units 01:40 01:40 06:22 Hgb 11.8 L (13.0-17.5) gm/dL Hct 35.8 L (39.0-53.0) % Neutrophils # 8.0 H (1.3-7.7) k/uL BUN 25 H (9-20) mg/dL Glucose 235 H (74-99) mg/dL POC Glucose (mg/dL) 156 H (75-99) mg/dL C-Reactive Protein 36.5 H (<10.0) mg/L 12/15/17 12/15/17 Range/Units 08:10 12:13 Hgb (13.0-17.5) gm/dL Hct (39.0-53.0) % Neutrophils # (1.3-7.7) k/uL BUN (9-20) mg/dL Glucose (74-99) mg/dL POC Glucose (mg/dL) 116 H 174 H (75-99) mg/dL C-Reactive Protein (<10.0) mg/L Assessment and Plan Plan: -Shock, most likely septic shock. Patient was admitted to the ICU. Continue with IV pressors. vehicle care specialist input is appreciated. -Left food and ankle cellulitis, possible septic arthritis on the top of left chocolate fluid. Patient on antibiotics Zosyn and daptomycin. Orthopedic team seeing the patient and they recommended MRI of the left ankle. ID has been consulted -Diabetes mellitus, continue with same treatment, Levemir 50 units at bedtime -Diabetic neuropathy on gabapentin -Charcot joints -Hypertension, continue same treatment -Hyperlipidemia continue the same treatment GI prophylaxis Pepcid DVT prophylaxis heparin Prognosis is guarded
[2017-12-15 17:31] LABS: Glucose,Whole Blood 204 mg/dL (75-99)
[2017-12-15] MEDS: HYDROcodone/APAP 5-325MG 1 EACH TAB PO PRN (18:16)
[2017-12-15 19:21] LABS: Amorphous Sediment,Urine Rare /hpf; Appearance,Urine Clear (Clear); Bilirubin,Urine Negative (Negative); Blood,Urine Negative (Negative); Color,Urine Yellow; Glucose,Urine (UA) 1+ (Negative); Hyaline Casts,Urine 13 /lpf (0-2); Ketones,Urine Negative (Negative); Leukocyte Esterase,Urine Negative (Negative); Mucus,Urine Occasional /hpf; Nitrite,Urine Negative (Negative); PH, Urine 5.5 (5.0-8.0); Protein,Urine 1+ (Negative); RBC,Urine 1 /hpf (0-5); Urobilinogen,Urine <2.0 mg/dL (<2.0); WBC,Urine 4 /hpf (0-5)
[2017-12-15 20:07] LABS: Glucose,Whole Blood 221 mg/dL (75-99)
[2017-12-15] MEDS: INSULIN DETEMIR 100 UNIT/ML 10 ML VIAL SQ SCH (21:09)
[2017-12-15] MEDS: ATORVASTATIN 10 MG TAB PO SCH (21:09)
[2017-12-16] MEDS: HEPARIN SODIUM,PORCINE 5,000 UNIT/ML 1 ML VIAL SQ SCH ×4 (00:02→23:14)
[2017-12-16] MEDS: MORPHINE SULFATE 2 MG/ML SYRINGE IV PRN (00:02)
[2017-12-16] MEDS: PIPERACILLIN-TAZOBACTAM 3.375 GM in DEXTROSE/WATER 1 50ML.BAG IVPB SCH ×4 (00:03→23:14)
[2017-12-16 05:44] LABS: Basophils # (A) 0.1 k/uL (0-0.2); Basophils % (A) 1 %; Eosinophils # (A) 0.5 k/uL (0-0.7); Eosinophils % (A) 4 %; HCT 31.7 % (39.0-53.0); HGB 10.2 gm/dL (13.0-17.5); Hypochromasia Moderate; Lymphocytes # (A) 1.3 k/uL (1.0-4.8); Lymphocytes % (A) 12 %; MCH 27.5 pg (25.0-35.0); MCHC 32.1 g/dL (31.0-37.0); MCV 85.8 fL (80.0-100.0); Mean Platelet Volume 6.6; Monocytes # (A) 0.7 k/uL (0-1.0); Monocytes % (A) 7 %; Neutrophils # (A) 7.5 k/uL (1.3-7.7); Neutrophils % (A) 73 %; Platelet Count 371 k/uL (150-450); RDW 15.3 % (11.5-15.5); WBC 10.2 k/uL (3.8-10.6)
[2017-12-16 06:02] LABS: Anion Gap 9 mmol/L; Blood Urea Nitrogen 22 mg/dL (9-20); Calcium 8.6 mg/dL (8.4-10.2); Carbon Dioxide 22 mmol/L (22-30); Chloride 105 mmol/L (98-107); Glucose 150 mg/dL (74-99); Magnesium 2.1 mg/dL (1.6-2.3); Potassium 4.6 mmol/L (3.5-5.1); Sodium 136 mmol/L (137-145)
[2017-12-16] MEDS: HYDROcodone/APAP 5-325MG 1 EACH TAB PO PRN ×3 (06:33→21:28)
[2017-12-16 06:48] LABS: Glucose,Whole Blood 140 mg/dL (75-99)
[2017-12-16] MEDS: LEVOTHYROXINE 75 MCG TAB PO SCH (07:09)
[2017-12-16] MEDS: SODIUM CHLORIDE 0.9% 1,000 ML IV SCH ×2 (07:10→17:09)
[2017-12-16] MEDS: PANTOPRAZOLE 40 MG TABLET PO SCH (07:12)
--- NOTE | 2017-12-16 07:54 | XR ---
EXAMINATION TYPE: XR chest 1V portable DATE OF EXAM: 12/16/2017 COMPARISON: 10/28/2017 INDICATION: Shortness of breath TECHNIQUE: Single frontal view of the chest is obtained. FINDINGS: The heart size is normal. The pulmonary vasculature is normal. Minimal bibasilar infiltrates. Be present. This is improving from comparison. Resolving atelectasis o r pneumonia could be considered. EKG leads overlie the chest. PICC line enters on the right with the tip in the superior vena cava reg ion. IMPRESSION: 1. Mild bibasilar infiltrates, likely atelectasis, improving from comparison.
[2017-12-16] MEDS: GABAPENTIN 300 MG CAP PO SCH (08:43)
[2017-12-16] MEDS: INSULIN ASPART 100 UNIT/ML 1 ML 10 ML VIAL SQ SCH ×4 (08:44→20:49)
[2017-12-16] MEDS: PREGABALIN 100 MG CAP PO SCH ×3 (08:50→21:26)
[2017-12-16 11:20] LABS: Hemoglobin A1C 7.7 % (4.0-6.0)
[2017-12-16 11:51] LABS: Glucose,Whole Blood 153 mg/dL (75-99)
--- NOTE | 2017-12-16 12:20 | P.PN ---
Subjective Progress Note Date: 12/16/17 Principal diagnosis: Acute septic shock and ankle septic arthritis. A 52-year-old male patient, known history of diabetes mellitus and charcot foot with previous history of diabetic ulceration of the lower extremities requiring amputation previous incision and drainage and the treatment of soft tissue infection and osteomyelitis. The patient comes in to the emergency department yesterday due to concerns of a recurrent infection in the left foot. The patient's medial malleolus area of the left foot is swollen and that and warm and this obviously raises the concern for recurrent infection. The patient has open wounds in the left foot however the base of the wound is covered with healthy remission tissue and there is no active drainage. Nevertheless there is an area of the medial malleolus extending to the left lower extremity area which is red and there is a concern of an underlying abscess formation/ cellulitis. For that reason the patient came in. The patient was admitted to the hospital. He was afebrile. No significant leukocytosis. He was given antibiotics including vancomycin. Fluids vancomycin treatment and within the first 10 minutes the patient developed an acute reaction. He became hypotensive and he became short of breath and flushed. The antibiotic was discontinued. The patient got moved to the intensive care unit. He is currently on pressors and 7 mics of levo for hemodynamic support. He was given a total of 2 L of IV fluids. Renal function is stable. The risk of 10.4. No significant bandemia. Covered and with a combination of Zosyn and daptomycin. ID consultation is in place. Surgical consultation is also been placed. Awake and alert. No altered mentation. No other complaint otherwise for now. Note that this patient was in the hospital back in September 2017 for an acute septic arthritis of the left ankle. At that time the patient underwent irrigation and debridement and the patient was found to have MSSA in the blood and wound. During the course of the treatment the patient had ARDS with acute hypoxic history failure requiring intubation mechanical ventilation and his treatment was prolonged and during the process of the patient required a tracheostomy tube insertion and PEG tube insertion. Ultimately the patient was weaned off and [facility] and he was decannulated and currently his tracheostomy site has nicely healed. He was receiving outpatient antibiotics for a right upper extremity PICC line and he was given IV Rocephin which she completed on 11/28/2017. His been off antibiotics since. He is applying many honey to the open wound area and his left foot. Reevaluated today on 12/16/2017, patient seems to be doing a bit better today, norepinephrine was discontinued early this morning, remains on IV fluid at 100 mL/h, hemodynamically stable, on antibiotics empirically, yet to be seen by infectious disease on consultation. Patient has good urine output. Labs showed relatively normal CBC, normal electrolytes, normal renal profile. Blood cultures are negative so far. Patient denies any shortness of breath no cough no wheezing no chest pain. Objective - Vital Signs Vital signs: Vital Signs Temp 98.2 F 12/16/17 08:00 Pulse 79 12/16/17 11:00 Resp 18 12/16/17 11:00 BP 102/62 12/16/17 11:00 Pulse Ox 96 12/16/17 11:00 Intake & Output 12/15/17 12/16/17 12/16/17 18:59 06:59 18:59 Intake Total 3865.145 1374.567 502.5 Output Total 1000 795 Balance 2865.145 579.567 502.5 Weight 138.9 kg Intake: IV 3070 1350 502.5 Piperacillin-Tazobactam 3 50 50 62.5 .375 gm In Dextrose/Water 1 50ml.bag @ 12.5 mls/hr IVPB Q8HR [facility] Rx#: [id number] Sodium Chloride 0.9% 1, 800 1300 440 000 ml @ 100 mls/hr IV . Q10H [facility] Rx#:[id number] Sodium Chloride 0.9% 1, 220 000 ml @ 20 mls/hr IV . Q24H [facility] Rx#:[id number] Sodium Chloride 0.9% 1, 2000 000 ml @ 999 mls/hr IV . Q1H1M [facility] Rx#:[id number] Intake, IV Titration 55.145 24.567 Amount Norepinephrin 16 mg-0.9% 55.145 24.567 Ns Pmx 16 mg In 250 ml @ Titrate IV .Q0M [facility] Rx#: [id number] Oral 740 Output: Urine 1000 795 Other: # Voids 0 - Exam Physical Exam: Revealed a 52-year-old white male in no distress. Head: Atraumatic, normocephalic. HEENT:[Neck is supple.] [No neck masses.] [No thyromegaly.] [No JVD.] PERRLA, EOMI, throat is clear, moist mucous membranes noted. Chest: [Clear throughout, no crackles, no rhonchi, no wheezes.] Cardiac Exam: [Normal S1 and S2, no S3 gallop, no murmur.] Abdomen: Obese, [Soft, nontender, no megaly, no rebound, no guarding, normal bowel sounds.] Extremities: No signs or symptoms of DVT; no calf pain Significant swelling over the left foot and ankle Evidence of healing wounds over the medial anterior and lateral anterior left foot in which wounds continue to be incompletely healed Left lateral anterior foot wound has scabbed over Left medial anterior foot wound continues to be open with somewhat discharge present at the wound site No evidence of significant erythema or obvious sign of acute infection at the previous wound sites Evidence of erythema and induration with pain to palpation over the left medial and posterior heel and ankle Neurological Exam: [No focal neurologic deficit. Lymphatics: No lymphadenopathy. Psychiatric: Normal mood affect and mental status examination.] - Labs CBC & Chem 7: 12/16/17 05:25 12/16/17 05:25 Labs: Abnormal Lab Results - Last 24 Hours (Table) 12/15/17 12/15/17 12/15/17 Range/Units 12:13 17:30 18:45 RBC (4.30-5.90) m/uL Hgb (13.0-17.5) gm/dL Hct (39.0-53.0) % Sodium (137-145) mmol/L BUN (9-20) mg/dL Creatinine (0.66-1.25) mg/dL Glucose (74-99) mg/dL POC Glucose (mg/dL) 174 H 204 H (75-99) mg/dL Urine Protein 1+ H (Negative) Urine Glucose (UA) 1+ H (Negative) Amorphous Sediment Rare H (None) /hpf Hyaline Casts 13 H (0-2) /lpf Urine Mucus Occasional H (None) /hpf 12/15/17 12/16/17 12/16/17 Range/Units 20:05 05:25 05:25 RBC 3.70 L (4.30-5.90) m/uL Hgb 10.2 L (13.0-17.5) gm/dL Hct 31.7 L (39.0-53.0) % Sodium 136 L (137-145) mmol/L BUN 22 H (9-20) mg/dL Creatinine 0.60 L (0.66-1.25) mg/dL Glucose 150 H (74-99) mg/dL POC Glucose (mg/dL) 221 H (75-99) mg/dL Urine Protein (Negative) Urine Glucose (UA) (Negative) Amorphous Sediment (None) /hpf Hyaline Casts (0-2) /lpf Urine Mucus (None) /hpf 12/16/17 12/16/17 Range/Units 06:47 11:49 RBC (4.30-5.90) m/uL Hgb (13.0-17.5) gm/dL Hct (39.0-53.0) % Sodium (137-145) mmol/L BUN (9-20) mg/dL Creatinine (0.66-1.25) mg/dL Glucose (74-99) mg/dL POC Glucose (mg/dL) 140 H 153 H (75-99) mg/dL Urine Protein (Negative) Urine Glucose (UA) (Negative) Amorphous Sediment (None) /hpf Hyaline Casts (0-2) /lpf Urine Mucus (None) /hpf Microbiology - Last 24 Hours (Table) 12/15/17 18:14 Urine Culture - Preliminary Urine,Clean Catch 12/15/17 08:45 Blood Culture - Preliminary Blood No Growth after 24 hours 12/15/17 08:14 Blood Culture - Preliminary Blood No Growth after 24 hours 12/15/17 04:42 Blood Culture - Preliminary Blood No Growth after 24 hours Assessment and Plan Assessment: 1 acute septic shock and septic arthritis. 2 MSSA septicemia related to an ankle septic arthritis back in September 2017 status post incision and drainage and irrigation with cultures showing positive MSSA in the blood and in the wound. Patient received outpatient about x-ray PICC line in the right upper extremity and just completed the course of IV Rocephin 3 acute hypotension. Rule out underlying sepsis. Rule out side effects/ reaction to vancomycin. Currently on a combination of fluids and the patient received a total of 2 L of IV fluids and the patient is also receiving norepinephrine infusion 4 diabetes mellitus with diabetic peripheral neuropathy and Charcot joints 5 chronic wound and ulceration of the lower oximetry is bilaterally 6 morbid obesity with interval weight loss 7 hypertension 8 hyperlipidemia 9 hypothyroidism 10 recent hospitalization for sepsis complicated by respiratory failure/ARDS requiring intubation, mechanical ventilation and tracheostomy tube insertion Recommendation: Continue antibiotics, adjust according to final culture, infectious disease consultation and orthopedic consultations are pending. Patient is now off norepinephrine, he is mostly on IV fluids and antibiotics. Will monitor in the ICU for the next 24 hours, and if he continues to remain hemodynamically stable, then we could transfer to a regular medical floor. Time with Patient: Less than 30
--- NOTE | 2017-12-16 12:31 | P.PN ---
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 [facility]'s [facility] and recently got discharge from [facility] over the last 3 weeks and he has have visiting nurse every other day. This time presents with possible worsening left foot infection and ankle, as the visiting nurse noticed some erythematous discolorations on the medial side of the left ankle. The rest of the chart, foods including an opening wound on the medial side of the foot looks the same as per patient After admissions while the patient was taken vancomycin he was found to be hypotensive and transferred to the ICU with pressors and besides IV fluids and antibiotic treatment is been already evaluated by intensive care unit specialist strategy execution consultant. Suspicious for possible septic shock versus vancomycin reaction/side effects. Patient was started on Zosyn and daptomycin and infection is under orthopedic team will been called. On admissions his WBC was 10.4 K patient is afebrile. Hemoglobin 11.8. Platelets 435. Creatinine 0.7 sodium 139 lactic acid 1.6. Left foot x-ray shows destructive lesions of the mid foods worsened compared to 10/11/2017 with possible osteomyelitis. Venous Doppler was negative for DVT on the left side however left groin shows prominent lymph nodes 11/16/2017 Patient remains in the ICU, also pressors. Blood pressure improved but still on the low side on IV fluids. Patient administered, but needs monitoring in the ICU. With at least 24 hours monitoring as per sterilization specialist note. Patient will need to continue with his stroke antibiotics daptomycin and Zosyn. Vancomycin is on hold due to possible adverse reaction. The left ankle is erythematous, hot. With open wound in the medial side of. Patient has left chocolate foot. He confirms to me he was known weight bearing of his left foot. Review of Systems Review of systems CONSTITUTIONAL: No fever, no malaise, no fatigue. HEENT: No recent visual problems or hearing problems. Denied any sore throat. CARDIOVASCULAR: No orthopnea, PND, no palpitations, no syncope. PULMONARY: No shortness of breath, no cough, no hemoptysis. GASTROINTESTINAL: No diarrhea, no nausea, no vomiting, no abdominal pain. Normoactive bowel sounds. NEUROLOGICAL: No headaches, no weakness, no numbness. HEMATOLOGICAL: Denies any bleeding or petechiae. GENITOURINARY: Denies any burning micturition, frequency, or urgency. MUSCULOSKELETAL/RHEUMATOLOGICAL: Denies any joint pain, swelling, or any muscle pain. ENDOCRINE: Denies any polyuria or polydipsia. Objective - Vital Signs Vital signs: Vital Signs Temp 98.2 F 12/16/17 08:00 Pulse 79 12/16/17 11:00 Resp 18 12/16/17 11:00 BP 102/62 12/16/17 11:00 Pulse Ox 96 12/16/17 11:00 Intake & Output 12/15/17 12/16/17 12/16/17 18:59 06:59 18:59 Intake Total 3865.145 1374.567 502.5 Output Total 1000 795 Balance 2865.145 579.567 502.5 Weight 138.9 kg Intake: IV 3070 1350 502.5 Piperacillin-Tazobactam 3 50 50 62.5 .375 gm In Dextrose/Water 1 50ml.bag @ 12.5 mls/hr IVPB Q8HR [facility] Rx#: [id number] Sodium Chloride 0.9% 1, 800 1300 440 000 ml @ 100 mls/hr IV . Q10H [facility] Rx#:[id number] Sodium Chloride 0.9% 1, 220 000 ml @ 20 mls/hr IV . Q24H [facility] Rx#:[id number] Sodium Chloride 0.9% 1, 2000 000 ml @ 999 mls/hr IV . Q1H1M [facility] Rx#:[id number] Intake, IV Titration 55.145 24.567 Amount Norepinephrin 16 mg-0.9% 55.145 24.567 Ns Pmx 16 mg In 250 ml @ Titrate IV .Q0M [facility] Rx#: [id number] Oral 740 Output: Urine 1000 795 Other: # Voids 0 - Exam GENERAL: The patient is alert and oriented x3, not in any acute distress. Well developed, well nourished. HEENT: Pupils are round and equally reacting to light. EOMI. No scleral icterus. No conjunctival pallor. Normocephalic, atraumatic. No pharyngeal erythema. No thyromegaly. CARDIOVASCULAR: S1 and S2 present. No murmurs, rubs, or gallops. PULMONARY: Chest is clear to auscultation, no wheezing or crackles. ABDOMEN: Soft, nontender, nondistended, normoactive bowel sounds. No palpable organomegaly. MUSCULOSKELETAL: No joint swelling or deformity. EXTREMITIES: No cyanosis, clubbing, or pedal edema. -left Charcot joint with open wound on the medial side, with yellowish base and no surrounding erythema or abnormal discharge [looks chronic]. Also has some erythema and hardness on the ankle especially on the medial side NEUROLOGICAL: Gross neurological examination did not reveal any focal deficits. SKIN: No rashes. - Labs CBC & Chem 7: 12/16/17 05:25 12/16/17 05:25 Labs: Abnormal Lab Results - Last 24 Hours (Table) 12/15/17 12/15/17 12/15/17 Range/Units 17:30 18:45 20:05 RBC (4.30-5.90) m/uL Hgb (13.0-17.5) gm/dL Hct (39.0-53.0) % Sodium (137-145) mmol/L BUN (9-20) mg/dL Creatinine (0.66-1.25) mg/dL Glucose (74-99) mg/dL POC Glucose (mg/dL) 204 H 221 H (75-99) mg/dL Urine Protein 1+ H (Negative) Urine Glucose (UA) 1+ H (Negative) Amorphous Sediment Rare H (None) /hpf Hyaline Casts 13 H (0-2) /lpf Urine Mucus Occasional H (None) /hpf 12/16/17 12/16/17 12/16/17 Range/Units 05:25 05:25 06:47 RBC 3.70 L (4.30-5.90) m/uL Hgb 10.2 L (13.0-17.5) gm/dL Hct 31.7 L (39.0-53.0) % Sodium 136 L (137-145) mmol/L BUN 22 H (9-20) mg/dL Creatinine 0.60 L (0.66-1.25) mg/dL Glucose 150 H (74-99) mg/dL POC Glucose (mg/dL) 140 H (75-99) mg/dL Urine Protein (Negative) Urine Glucose (UA) (Negative) Amorphous Sediment (None) /hpf Hyaline Casts (0-2) /lpf Urine Mucus (None) /hpf 12/16/17 Range/Units 11:49 RBC (4.30-5.90) m/uL Hgb (13.0-17.5) gm/dL Hct (39.0-53.0) % Sodium (137-145) mmol/L BUN (9-20) mg/dL Creatinine (0.66-1.25) mg/dL Glucose (74-99) mg/dL POC Glucose (mg/dL) 153 H (75-99) mg/dL Urine Protein (Negative) Urine Glucose (UA) (Negative) Amorphous Sediment (None) /hpf Hyaline Casts (0-2) /lpf Urine Mucus (None) /hpf Microbiology - Last 24 Hours (Table) 12/15/17 18:14 Urine Culture - Preliminary Urine,Clean Catch 12/15/17 08:45 Blood Culture - Preliminary Blood No Growth after 24 hours 12/15/17 08:14 Blood Culture - Preliminary Blood No Growth after 24 hours 12/15/17 04:42 Blood Culture - Preliminary Blood No Growth after 24 hours Assessment and Plan Plan: -Shock, most likely septic shock. Patient to continue in the ICU for now. IV pressors on hold as his blood pressure is improved extremities on the low normal side. internet ecommerce specialist input is appreciated. -Left food and ankle cellulitis, possible septic arthritis on the top of left chocolate fluid. Patient on antibiotics Zosyn and daptomycin. Orthopedic team seeing the patient and they recommended MRI of the left ankle. ID has been consulted -Diabetes mellitus, continue with same treatment, Levemir 50 units at bedtime -Diabetic neuropathy on gabapentin -Charcot joints -Hypertension, continue same treatment -Hyperlipidemia continue the same treatment GI prophylaxis Pepcid DVT prophylaxis heparin Prognosis is guarded Time with Patient: Greater than 30
[2017-12-16] MEDS: DAPTOmycin 750 MG in SODIUM CHLORIDE 0.9% 50 ML IVPB SCH (13:08)
--- NOTE | 2017-12-16 13:19 | P.PN ---
Subjective Progress Note Date: 12/16/17 Principal diagnosis: Sepsis. Left foot infection. Patient is a very pleasant 52-year-old male who is seen and examined in the ICU for further evaluation of cellulitis of the left foot and ankle. Patient is well known to our service and has previously under gone irrigation and excisional debridement with placement of wound VAC by Dr. Mcneil in September 2017. Following surgical intervention, he was placed with a PICC line and has been receiving IV antibiotics over the past 2 months. He continues to follow with Dr. Mi in infectious disease. He states he felt he had been progressing well and has an appointment with Dr. Mi on 12/19/2017. He has a home nurse who came to see him yesterday. At that time he was experiencing some increased erythema and induration of the left medial heel. He has pain with palpation at this area. He is not currently experiencing any significant pain over his previous surgical sites. He states he presented to [facility] for further evaluation treatment. He was in the emergency department for approximately 4 hours. He was then transferred to the third floor. Shortly after being transferred, he had significant hypotension, was diaphoretic, and vomiting. A code was called. By the time the code team arrived his overall status had significantly improved. He was transferred to the ICU. Cultures are currently pending. Nursing states his systolic pressure was in the 60s the time of his hypotensive state. She states she is currently receiving 5 g of norepinephrine. He is not currently complaining of significant pain in his left ankle and foot except for the area of erythema over the left medial heel. He denies pain over the incision sites. He currently denies any other pain or discomfort in his body. His blood pressure is currently controlled. He was previously treated for sepsis at his last admission as well. The patient has stabilized. Vital signs are currently stable. He is sitting up in his chair and talking coherently. Objective - Vital Signs Vital signs: Vital Signs Temp 98.2 F 12/16/17 08:00 Pulse 79 12/16/17 11:00 Resp 18 12/16/17 11:00 BP 102/62 12/16/17 11:00 Pulse Ox 96 12/16/17 11:00 Intake & Output 12/15/17 12/16/17 12/16/17 18:59 06:59 18:59 Intake Total 3865.145 1374.567 502.5 Output Total 1000 795 Balance 2865.145 579.567 502.5 Weight 138.9 kg Intake: IV 3070 1350 502.5 Piperacillin-Tazobactam 3 50 50 62.5 .375 gm In Dextrose/Water 1 50ml.bag @ 12.5 mls/hr IVPB Q8HR [facility] Rx#: [id number] Sodium Chloride 0.9% 1, 800 1300 440 000 ml @ 100 mls/hr IV . Q10H [facility] Rx#:[id number] Sodium Chloride 0.9% 1, 220 000 ml @ 20 mls/hr IV . Q24H [facility] Rx#:[id number] Sodium Chloride 0.9% 1, 2000 000 ml @ 999 mls/hr IV . Q1H1M [facility] Rx#:[id number] Intake, IV Titration 55.145 24.567 Amount Norepinephrin 16 mg-0.9% 55.145 24.567 Ns Pmx 16 mg In 250 ml @ Titrate IV .Q0M [facility] Rx#: [id number] Oral 740 Output: Urine 1000 795 Other: # Voids 0 - Exam This is a pleasant 52-year-old male in no acute distress. He is alert and oriented 3. Vital signs are stable at this time. Exam of the left foot reveals the chronic wounds to the medial and lateral dorsal foot which are unchanged. The area of redness about the medial heel has resolved slightly since yesterday. He does continue to have some induration about the medial heel. Sensation is dull secondary to neuropathy. He is able to wiggle toes and move foot and ankle slightly. Dressing is changed today. - Labs CBC & Chem 7: 12/16/17 05:25 12/16/17 05:25 Labs: Abnormal Lab Results - Last 24 Hours (Table) 12/15/17 12/15/17 12/15/17 Range/Units 12:55 17:30 18:45 RBC (4.30-5.90) m/uL Hgb (13.0-17.5) gm/dL Hct (39.0-53.0) % Sodium (137-145) mmol/L BUN (9-20) mg/dL Creatinine (0.66-1.25) mg/dL Glucose (74-99) mg/dL POC Glucose (mg/dL) 204 H (75-99) mg/dL Hemoglobin A1c 7.7 H (4.0-6.0) % Urine Protein 1+ H (Negative) Urine Glucose (UA) 1+ H (Negative) Amorphous Sediment Rare H (None) /hpf Hyaline Casts 13 H (0-2) /lpf Urine Mucus Occasional H (None) /hpf 12/15/17 12/16/17 12/16/17 Range/Units 20:05 05:25 05:25 RBC 3.70 L (4.30-5.90) m/uL Hgb 10.2 L (13.0-17.5) gm/dL Hct 31.7 L (39.0-53.0) % Sodium 136 L (137-145) mmol/L BUN 22 H (9-20) mg/dL Creatinine 0.60 L (0.66-1.25) mg/dL Glucose 150 H (74-99) mg/dL POC Glucose (mg/dL) 221 H (75-99) mg/dL Hemoglobin A1c (4.0-6.0) % Urine Protein (Negative) Urine Glucose (UA) (Negative) Amorphous Sediment (None) /hpf Hyaline Casts (0-2) /lpf Urine Mucus (None) /hpf 12/16/17 12/16/17 Range/Units 06:47 11:49 RBC (4.30-5.90) m/uL Hgb (13.0-17.5) gm/dL Hct (39.0-53.0) % Sodium (137-145) mmol/L BUN (9-20) mg/dL Creatinine (0.66-1.25) mg/dL Glucose (74-99) mg/dL POC Glucose (mg/dL) 140 H 153 H (75-99) mg/dL Hemoglobin A1c (4.0-6.0) % Urine Protein (Negative) Urine Glucose (UA) (Negative) Amorphous Sediment (None) /hpf Hyaline Casts (0-2) /lpf Urine Mucus (None) /hpf Microbiology - Last 24 Hours (Table) 12/15/17 18:14 Urine Culture - Preliminary Urine,Clean Catch 12/15/17 08:45 Blood Culture - Preliminary Blood No Growth after 24 hours 12/15/17 08:14 Blood Culture - Preliminary Blood No Growth after 24 hours 12/15/17 04:42 Blood Culture - Preliminary Blood No Growth after 24 hours Assessment and Plan (1) Acute hypotension Current Visit: Yes Status: Acute Code(s): I95.9 - HYPOTENSION, UNSPECIFIED SNOMED Code(s): 37925359 (2) Cellulitis Current Visit: Yes Status: Acute Priority: Medium Code(s): L03.90 - CELLULITIS, UNSPECIFIED SNOMED Code(s): 641575184 (3) Cellulitis of left ankle Current Visit: Yes Status: Acute Code(s): L03.116 - CELLULITIS OF LEFT LOWER LIMB SNOMED Code(s): 24625489 (4) Morbid obesity Current Visit: Yes Status: Acute Code(s): E66.01 - MORBID (SEVERE) OBESITY DUE TO EXCESS CALORIES SNOMED Code(s): 829414378 (5) Poorly controlled type 2 diabetes mellitus with complication Current Visit: Yes Status: Chronic Code(s): E11.8 - TYPE 2 DIABETES MELLITUS WITH UNSPECIFIED COMPLICATIONS; E11.65 - TYPE 2 DIABETES MELLITUS WITH HYPERGLYCEMIA SNOMED Code(s): 24955732 (6) Diabetic foot ulcer Current Visit: No Status: Acute Code(s): E11.621 - TYPE 2 DIABETES MELLITUS WITH FOOT ULCER SNOMED Code(s): 147360617 Plan: The clinical findings are discussed the patient. He has an MRI scheduled for 2: 15 today. The patient also will be evaluated by Dr. Mi today. He currently is on Zosyn and daptomycin per infectious disease. We will continue to follow and await MRI results.
--- NOTE | 2017-12-16 16:41 | MR ---
MR left ankle without contrast HISTORY: Recurrent septic arthritis Multiplanar multisequence imaging obtained through the left ankle Correlation to left foot dated 12/15/2017 Diffuse abnormalities seen on plain film confirmed on MRI. There is abnormal soft tissue swelling pre sent. Joint distortion at the tibiotalar joint due to cortical destruction is noted with abnormal faby nt space loss. Abnormal fragmentation of the talus and navicular bones as well as calcaneus distally. Abnormal signal of the distal tibia as well as bones of the hind and midfoot. Achilles tendon shows abnormal increased signal centrally which could be due to partial tear. Diffuse subcutaneous edema is present. Plantar aponeurosis appears intact. There is some susceptibility artifact within the soft t issues. IMPRESSION: Findings suggest neuropathic foot, possible osteomyelitis, septic joint as discussed on p sawyer film.
[2017-12-16 16:43] LABS: Glucose,Whole Blood 173 mg/dL (75-99)
[2017-12-16 20:43] LABS: Glucose,Whole Blood 202 mg/dL (75-99)
[2017-12-16] MEDS: ATORVASTATIN 10 MG TAB PO SCH (20:52)
[2017-12-16] MEDS: INSULIN DETEMIR 100 UNIT/ML 10 ML VIAL SQ SCH (21:26)
--- NOTE | 2017-12-16 22:25 | P.CONS ---
History of Present Illness - Reason for Consult Consult date: 12/16/17 - Chief Complaint Cellulitis left foot - History of Present Illness 52 year old male who is well-known to the infectious disease service regarding his recent hospitalization, at that time he nearly one month in Hospital regarding the sever infection of the left foot and ankle from his charcot foot infection with MSSA much better at this time.He developed septic shock with respiratory failure and acute renal failure. Eventually he improved and was transferred to the subacute rehabilitation facility where he was successfully weaned from the ventilator, tracheostomy was decannulated and his PEG tube was removed. He's now been in the home setting for several weeks and doing relatively well. The wound to the left ankle was showing improvement. He was seen by his visiting nurse and there was concerns to some increasing erythema. He was sent to the emergency center. Because concerns of that site he was given a dose of vancomycin, apparently directly after was given he became hypotensive and became acutely ill. Transfer to intensive care unit. At this time is feeling well sitting upright in a chair and doesn't feel ill at the moment. His hypotensive event has completely resolved and his vasopressors have been removed. He's had no fever or chills. The pain in the area is minimal he does have neuropathy. He generally is feeling much better at this time. Review of Systems HEENT:Denies headache or acute visual change. Denies sinus or mouth discomforts. Denies neck stiffness or pain. Denies significant oral cavity pain. Denies difficulty on swallowing. Lungs: Denies significant shortness of breath, cough, sputum production, or hemoptysis. Cardiovascular: Denies significant shortness of breath, chest pain, chest wall pain, orthopnea, dyspnea on exertion, syncope Gastrointestinal:Denies nausea, vomiting, diarrhea, constipation, hematemesis, melena, hematochezia. No no significant change of bowel habit noticed. Musculoskeletal: denies significant myalgias or arthralgias. No new joint swelling. Denies new back pain. Skin: Denies new rash or lesions. No new ulcers or wounds are related.. Neuro: Denies headache or visual change. Denies any new onset weakness or difficulty with ambulation. Denies falls or seizures. Psychiatric:Denies anxiety or depression. Endocrine: Denies significant fatigue, denies significant weight loss or weight gain. Past Medical History Past Medical History: Diabetes Mellitus, GERD/Reflux, Hyperlipidemia, Hypertension, Thyroid Disorder Additional Past Medical History / Comment(s): Morbid obesity, diabetic, hypertension, hyperlipidemia, hypothyroidism, previous history of right foot osteomyelitis requiring partial amputation, history of wounds in the lower extremities most recent of which was created by a boots and the patient was treated and the wound had healed, charcot joints, hiatal hernia, previous sepsis with MSSA complicated by ARDS and ventilator-dependent respiratory failure and prolonged mechanical ventilation/tracheostomy tube insertion and PEG tube insertion with subsequent removal. 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 I&D LEFT FOOT, vasectomy, rhinoplasty, tendon surgery right wrist. amputation of right great toe. Past Anesthesia/Blood Transfusion Reactions: No Reported Reaction Past Psychological History: No Psychological Hx Reported Additional Psychological History / Comment(s): and lives in the family home with his and adult children. Works for the [employer] in [facility]. No experience. No international travel. Stopped smoking several years ago. Denies alcohol abuse. No animal exposures Smoking Status: Former smoker Past Alcohol Use History: Occasional Additional Past Alcohol Use History / Comment(s): STARTED SMOKING AGE 12 QUIT 1984, SMOKED LESS THAN 1 PACK PER DAY Past Drug Use History: None Reported - Past Family History Father Family Medical History: Coronary Artery Disease (CAD), Diabetes Mellitus, Renal Disease Mother Family Medical History: COPD, Diabetes Mellitus Medications and Allergies Home Medications and Allergies Comment(s): Current Medications Acetaminophen (Tylenol Tab) 650 mg PO Q6HR PRN PRN Reason: Mild Pain or Fever > 100.5 Hydrocodone Bitart/Acetaminophen ([place] 5-325) 1 each PO TID PRN PRN Reason: Pain Last Admin: 12/16/17 21:28 Dose: 1 each Atorvastatin Calcium (Lipitor) 10 mg PO HS [facility] Last Admin: 12/16/17 20:52 Dose: 10 mg Gabapentin (Neurontin) 600 mg PO DAILY [facility] Last Admin: 12/16/17 08:43 Dose: 600 mg Heparin Sodium (Porcine) (Heparin) 5,000 unit SQ Q8HR [facility] Last Admin: 12/16/17 15:15 Dose: 5,000 unit Piperacillin/Tazobactam/ (Dextrose 3.375 gm/ IV Solution) 50 mls @ 12.5 mls/hr IVPB Q8HR [facility] Last Admin: 12/16/17 15:15 Dose: 12.5 mls/hr Daptomycin 750 mg/ Sodium (Chloride) 50 mls @ 100 mls/hr IVPB Q24H [facility] Last Admin: 12/16/17 13:08 Dose: 100 mls/hr Sodium Chloride (Saline 0.9%) 1,000 mls @ 100 mls/hr IV .Q10H [facility] Last Admin: 12/16/17 17:09 Dose: 100 mls/hr Insulin Aspart (Novolog) 0 unit SQ ACHS [facility] PRN Reason: Protocol Last Admin: 12/16/17 20:49 Dose: 4 unit Insulin Detemir (Levemir) 50 unit SQ [facility] Last Admin: 12/16/17 21:26 Dose: 50 unit Levothyroxine Sodium (Synthroid) 150 mcg PO DAILY@0630 [facility] Last Admin: 12/16/17 07:09 Dose: 150 mcg Morphine Sulfate (Morphine Sulfate (Inj)) 4 mg IV Q4HR PRN PRN Reason: Severe Pain Last Admin: 12/16/17 00:02 Dose: 4 mg Naloxone HCl (Narcan) 0.2 mg IV Q2M PRN PRN Reason: Opioid Reversal Ondansetron HCl (Zofran) 4 mg IVP Q8HR PRN PRN Reason: Nausea And Vomiting Last Admin: 12/15/17 05:39 Dose: 4 mg Pantoprazole Sodium (Protonix) 40 mg PO AC-BRKFST [facility] Last Admin: 12/16/17 07:12 Dose: 40 mg Pregabalin (Lyrica) 100 mg PO TID [facility] Last Admin: 12/16/17 21:26 Dose: 100 mg Senna/Docusate Sodium (Senokot-S) 1 each PO BID PRN PRN Reason: Constipation Home Medications Medication Instructions Recorded Confirmed Type Lovastatin 40 mg PO HS 08/10/14 12/15/17 History Metoprolol Tartrate 25 mg PO BID 08/13/14 12/15/17 History Pregabalin [Lyrica] 100 mg PO TID 08/13/14 12/15/17 History HYDROcodone/APAP 5-325MG [[place] 1 tab PO QID 10/11/17 12/15/17 History 5-325] Levothyroxine Sodium [Synthroid] 150 mcg PO DAILY 10/11/17 12/15/17 History Ramipril 10 mg PO DAILY 10/11/17 12/15/17 History Calcium Carbonate [Tums] 500 mg PO DAILY PRN 12/15/17 12/15/17 History INSULIN LISPRO (humaLOG) [humaLOG] 10 units SQ TID-W/MEALS 12/15/17 12/15/17 History Ibuprofen 800 mg PO TID PRN 12/15/17 12/15/17 History Insulin Glargine [Lantus] 50 unit SQ HS 12/15/17 12/15/17 History metFORMIN HCL 1,000 mg PO DAILY 12/15/17 12/15/17 History Allergies Allergy/AdvReac Type Severity Reaction Status Date / Time sulfamethoxazole AdvReac Severe Nausea, Verified 12/15/17 12:07 [From Bactrim] Dizziness, Headaches trimethoprim [From Bactrim] AdvReac Severe Nausea, Verified 12/15/17 12:07 Dizziness, Headaches Physical Exam Vitals: Vital Signs Temp Pulse Pulse Resp BP Pulse Ox 12/16/17 16:00 98.1 F 82 22 135/68 92 L 12/16/17 13:00 79 17 103/62 94 L 12/16/17 12:00 98.2 F 74 10 L 103/61 98 12/16/17 11:00 79 18 102/62 96 12/16/17 10:00 76 18 110/63 96 12/16/17 09:00 80 14 111/61 97 12/16/17 08:00 98.2 F 72 12 110/45 96 12/16/17 07:00 74 13 113/70 97 12/16/17 06:00 88 19 133/70 96 12/16/17 05:00 72 12 124/64 98 12/16/17 04:00 97.6 F 68 95 14 106/60 95 12/16/17 03:00 71 11 L 105/59 95 12/16/17 02:00 69 13 112/62 95 12/16/17 01:00 70 11 L 98/53 94 L 12/16/17 00:00 79 95 24 104/62 97 12/15/17 23:26 97.6 F 75 20 107/62 96 12/15/17 23:00 70 11 L 81/41 99 12/15/17 22:00 84 13 111/60 96 12/15/17 21:00 81 121/64 96 12/15/17 20:00 98.2 F 74 95 18 120/66 98 12/15/17 19:00 85 17 99/42 96 Intake and Output 12/16/17 12/16/17 12/16/17 06:59 14:59 22:59 Intake Total 966.878 570.0 Output Total 675 450 Balance 291.878 120.0 Intake: IV 950 570.0 Piperacillin-Tazobactam 3 50 50.0 .375 gm In Dextrose/Water 1 50ml.bag @ 12.5 mls/hr IVPB Q8HR [facility] Rx#: [id number] Sodium Chloride 0.9% 1, 900 520 000 ml @ 100 mls/hr IV . Q10H [facility] Rx#:[id number] Intake, IV Titration 16.878 Amount Norepinephrin 16 mg-0.9% 16.878 Ns Pmx 16 mg In 250 ml @ Titrate IV .Q0M [facility] Rx#: [id number] Output: Urine 675 450 Other: # Voids 0 Weight 138.9 kg Pleasant 52-year-old male sitting up in a chair looking quite comfortable he has eaten his meal without difficulty HEENT: Anicteric conjunctiva are pink and moist nasal mucosa grossly intact without significant lesions, there is no thrush. Neck: The neck is supple without significant lymphadenopathy or thyromegaly. Lungs: Good bilateral air entry without significant crackles or wheezing. There is no significant bronchial sounds. There is no egophony or dullness. Heart: Regular rate and rhythm with an audible S1-S2, no S3 no S4. There is no significant murmur click or rub, PMI was nondisplaced. Abdomen: Positive bowel sounds soft and nontender without palpable masses or organomegaly. There was no guarding or rebound. Extremities: The upper extremities have excellent pulses they are symmetric, no significant petechiae or telangiectasia. No splinter hemorrhages were noted. Right lower extremity is without acute abnormalities. A left lower extremities shows the 2 ulcerations please see the nursing photography criticizing exact location of the 2 ulcerations that are improved from the last evaluation. There is no expressible purulence. In the medial posterior aspect of the heel below the medial malleolus is a small area of erythema, so the area the nurse was concerned about. It is not fluctuant or indurated. It is not warm to touch. He has neuropathy and it is not very tender. There is no ascending erythema. There is no expressible purulence or even the open ulcerations. Neuro: Awake alert oriented to person place and time. There are no acute new gross focal sensory motor deficits. Results CBC & Chem 7: 12/16/17 05:25 12/16/17 05:25 Labs: Abnormal Lab Results - Last 24 Hours (Table) 12/15/17 12/15/17 12/15/17 Range/Units 12:55 18:45 20:05 RBC (4.30-5.90) m/uL Hgb (13.0-17.5) gm/dL Hct (39.0-53.0) % Sodium (137-145) mmol/L BUN (9-20) mg/dL Creatinine (0.66-1.25) mg/dL Glucose (74-99) mg/dL POC Glucose (mg/dL) 221 H (75-99) mg/dL Hemoglobin A1c 7.7 H (4.0-6.0) % Urine Protein 1+ H (Negative) Urine Glucose (UA) 1+ H (Negative) Amorphous Sediment Rare H (None) /hpf Hyaline Casts 13 H (0-2) /lpf Urine Mucus Occasional H (None) /hpf 12/16/17 12/16/17 12/16/17 Range/Units 05:25 05:25 06:47 RBC 3.70 L (4.30-5.90) m/uL Hgb 10.2 L (13.0-17.5) gm/dL Hct 31.7 L (39.0-53.0) % Sodium 136 L (137-145) mmol/L BUN 22 H (9-20) mg/dL Creatinine 0.60 L (0.66-1.25) mg/dL Glucose 150 H (74-99) mg/dL POC Glucose (mg/dL) 140 H (75-99) mg/dL Hemoglobin A1c (4.0-6.0) % Urine Protein (Negative) Urine Glucose (UA) (Negative) Amorphous Sediment (None) /hpf Hyaline Casts (0-2) /lpf Urine Mucus (None) /hpf 12/16/17 12/16/17 Range/Units 11:49 16:42 RBC (4.30-5.90) m/uL Hgb (13.0-17.5) gm/dL Hct (39.0-53.0) % Sodium (137-145) mmol/L BUN (9-20) mg/dL Creatinine (0.66-1.25) mg/dL Glucose (74-99) mg/dL POC Glucose (mg/dL) 153 H 173 H (75-99) mg/dL Hemoglobin A1c (4.0-6.0) % Urine Protein (Negative) Urine Glucose (UA) (Negative) Amorphous Sediment (None) /hpf Hyaline Casts (0-2) /lpf Urine Mucus (None) /hpf Microbiology - Last 24 Hours (Table) 12/15/17 18:14 Urine Culture - Preliminary Urine,Clean Catch 12/15/17 08:45 Blood Culture - Preliminary Blood No Growth after 24 hours 12/15/17 08:14 Blood Culture - Preliminary Blood No Growth after 24 hours 12/15/17 04:42 Blood Culture - Preliminary Blood No Growth after 24 hours Laboratory Results WBC 10.2 k/uL (3.8-10.6) 12/16/17 05:25 RBC 3.70 m/uL (4.30-5.90) L 12/16/17 05:25 Hgb 10.2 gm/dL (13.0-17.5) L 12/16/17 05:25 Hct 31.7 % (39.0-53.0) L 12/16/17 05:25 MCV 85.8 fL (80.0-100.0) 12/16/17 05:25 MCH 27.5 pg (25.0-35.0) 12/16/17 05:25 MCHC 32.1 g/dL (31.0-37.0) 12/16/17 05:25 RDW 15.3 % (11.5-15.5) 12/16/17 05:25 Plt Count 371 k/uL (150-450) 12/16/17 05:25 Neutrophils % 73 % 12/16/17 05:25 Lymphocytes % 12 % 12/16/17 05:25 Monocytes % 7 % 12/16/17 05:25 Eosinophils % 4 % 12/16/17 05:25 Basophils % 1 % 12/16/17 05:25 Neutrophils # 7.5 k/uL (1.3-7.7) 12/16/17 05:25 Lymphocytes # 1.3 k/uL (1.0-4.8) 12/16/17 05:25 Monocytes # 0.7 k/uL (0-1.0) 12/16/17 05:25 Eosinophils # 0.5 k/uL (0-0.7) 12/16/17 05:25 Basophils # 0.1 k/uL (0-0.2) 12/16/17 05:25 Hypochromasia Moderate 12/16/17 05:25 Sodium 136 mmol/L (137-145) L 12/16/17 05:25 Potassium 4.6 mmol/L (3.5-5.1) 12/16/17 05:25 Chloride 105 mmol/L (98-107) 12/16/17 05:25 Carbon Dioxide 22 mmol/L (22-30) 12/16/17 05:25 Anion Gap 9 mmol/L 12/16/17 05:25 BUN 22 mg/dL (9-20) H 12/16/17 05:25 Creatinine 0.60 mg/dL (0.66-1.25) L 12/16/17 05:25 Est GFR (CKD-EPI)AfAm >90 (>60 ml/min/1.73 sqM) 12/16/17 05:25 Est GFR (CKD-EPI)NonAf >90 (>60 ml/min/1.73 sqM) 12/16/17 05:25 Glucose 150 mg/dL (74-99) H 12/16/17 05:25 POC Glucose (mg/dL) 202 mg/dL (75-99) H 12/16/17 20:41 POC Glu Chief Yeoman ID Dory Townsend 12/16/17 20:[address] Glu mg/dL 174 12/15/17 12:55 Hemoglobin A1c 7.7 % (4.0-6.0) H 12/15/17 12:55 Plasma Lactic Acid Ron 1.4 mmol/L (0.7-2.0) 12/15/17 12:55 Calcium 8.6 mg/dL (8.4-10.2) 12/16/17 05:25 Phosphorus 4.0 mg/dL (2.5-4.5) 12/16/17 05:25 Magnesium 2.1 mg/dL (1.6-2.3) 12/16/17 05:25 C-Reactive Protein 36.5 mg/L (<10.0) H 12/15/17 01:40 Urine Color Yellow 12/15/17 18:45 Urine Appearance Clear (Clear) 12/15/17 18:45 Urine pH 5.5 (5.0-8.0) 12/15/17 18:45 Ur Specific [place] 1.020 (1.001-1.035) 12/15/17 18:45 Urine Protein 1+ (Negative) H 12/15/17 18:45 Urine Glucose (UA) 1+ (Negative) H 12/15/17 18:45 Urine Ketones Negative (Negative) 12/15/17 18:45 Urine Blood Negative (Negative) 12/15/17 18:45 Urine Nitrite Negative (Negative) 12/15/17 18:45 Urine Bilirubin Negative (Negative) 12/15/17 18:45 Urine Urobilinogen <2.0 mg/dL (<2.0) 12/15/17 18:45 Ur Leukocyte Esterase Negative (Negative) 12/15/17 18:45 Urine RBC 1 /hpf (0-5) 12/15/17 18:45 Urine WBC 4 /hpf (0-5) 12/15/17 18:45 Amorphous Sediment Rare /hpf (None) H 12/15/17 18:45 Hyaline Casts 13 /lpf (0-2) H 12/15/17 18:45 Urine Mucus Occasional /hpf (None) H 12/15/17 18:45 Microbiology 12/15/17 18:14 Urine,Clean Catch Urine Culture - Preliminary 12/15/17 08:45 Blood Blood Culture - Preliminary No Growth after 24 hours 12/15/17 08:14 Blood Blood Culture - Preliminary No Growth after 24 hours 12/15/17 04:42 Blood Blood Culture - Preliminary No Growth after 24 hours Assessment and Plan (1) Acute hypotension Current Visit: Yes Status: Acute Code(s): I95.9 - HYPOTENSION, UNSPECIFIED SNOMED Code(s): 37916917 (2) Poorly controlled type 2 diabetes mellitus with complication Current Visit: Yes Status: Chronic Code(s): E11.8 - TYPE 2 DIABETES MELLITUS WITH UNSPECIFIED COMPLICATIONS; E11.65 - TYPE 2 DIABETES MELLITUS WITH HYPERGLYCEMIA SNOMED Code(s): 99590540 (3) Charcot ankle Current Visit: No Status: Chronic Code(s): M14.679 - CHARCOT'S JOINT, UNSPECIFIED ANKLE AND FOOT SNOMED Code(s): 055855753 (4) Cellulitis of left ankle Narrative/Plan: 52-year-old male presents to Hospital from home after the visiting nurse evaluated and had concerns continue erythema to the posterior aspect of the left ankle where he has the open ulcerations from his surgery for the Charcot ankle MSSA infection. With his history of profound sepsis he was admitted for further evaluation. It appears after his first dose of vancomycin therapy he had an acute reaction and became hypotensive and acutely ill. He is now rapidly recovering and feels considerably better. He's had no significant fever, chills or rigors. He is not having severe leukocytosis and does not feel ill as he did when the ankle was grossly infected. He does have some neuropathy and is not having much pain. The area posterior ankle is mild concern since there is some minimal color change in the area. Consequently antibiotics are being given for now and as cultures become available we'll then be able to construct the next plan. Local wound care was of medical honey changed on a daily basis to the open ulcerations. Limb should be elevated while he is at rest. His anemia is improving. His acute renal failure for his last stay has completely resolved and has not recurred. Hemoglobin A1c is down to 77 from is 9.103 months ago showing a marked improvement of his glucose control which she is continue to strive to improve. His BMI is down to 40. Current Visit: Yes Status: Acute Code(s): L03.116 - CELLULITIS OF LEFT LOWER LIMB SNOMED Code(s): 34817069
[2017-12-17] MEDS: SODIUM CHLORIDE 0.9% 1,000 ML IV SCH ×3 (02:16→22:41)
[2017-12-17] MEDS: LEVOTHYROXINE 75 MCG TAB PO SCH (06:34)
[2017-12-17 07:21] LABS: Glucose,Whole Blood 90 mg/dL (75-99)
[2017-12-17] MEDS: INSULIN ASPART 100 UNIT/ML 1 ML 10 ML VIAL SQ SCH ×4 (07:37→21:44)
[2017-12-17] MEDS: PREGABALIN 100 MG CAP PO SCH ×3 (07:48→22:40)
[2017-12-17] MEDS: HYDROcodone/APAP 5-325MG 1 EACH TAB PO PRN ×2 (07:48→15:01)
[2017-12-17] MEDS: GABAPENTIN 300 MG CAP PO SCH (07:49)
[2017-12-17] MEDS: PANTOPRAZOLE 40 MG TABLET PO SCH (07:49)
[2017-12-17] MEDS: PIPERACILLIN-TAZOBACTAM 3.375 GM in DEXTROSE/WATER 1 50ML.BAG IVPB SCH ×3 (07:49→23:18)
[2017-12-17] MEDS: HEPARIN SODIUM,PORCINE 5,000 UNIT/ML 1 ML VIAL SQ SCH ×3 (07:49→23:18)
[2017-12-17 08:39] LABS: Basophils # (A) 0.1 k/uL (0-0.2); Basophils % (A) 1 %; Eosinophils # (A) 0.4 k/uL (0-0.7); Eosinophils % (A) 5 %; HCT 32.8 % (39.0-53.0); HGB 10.7 gm/dL (13.0-17.5); Hypochromasia Slight; Lymphocytes # (A) 1.2 k/uL (1.0-4.8); Lymphocytes % (A) 15 %; MCH 27.3 pg (25.0-35.0); MCHC 32.7 g/dL (31.0-37.0); MCV 83.7 fL (80.0-100.0); Mean Platelet Volume 6.6; Monocytes # (A) 0.6 k/uL (0-1.0); Monocytes % (A) 7 %; Neutrophils # (A) 5.8 k/uL (1.3-7.7); Neutrophils % (A) 69 %; Platelet Count 401 k/uL (150-450); RBC 3.92 m/uL (4.30-5.90); RDW 14.8 % (11.5-15.5); WBC 8.3 k/uL (3.8-10.6)
[2017-12-17 08:51] LABS: Anion Gap 9 mmol/L; Blood Urea Nitrogen 14 mg/dL (9-20); Calcium 9.1 mg/dL (8.4-10.2); Carbon Dioxide 27 mmol/L (22-30); Chloride 103 mmol/L (98-107); Glucose 95 mg/dL (74-99); Magnesium 2.1 mg/dL (1.6-2.3); Phosphorus 3.7 mg/dL (2.5-4.5); Potassium 4.3 mmol/L (3.5-5.1); Sodium 139 mmol/L (137-145)
--- NOTE | 2017-12-17 11:26 | P.PN ---
Subjective Progress Note Date: 12/17/17 Principal diagnosis: Sepsis and left foot infection The patient is a pleasant 52-year-old male whom we've been following for right foot and ankle cellulitis and septic arthritis. He underwent an MRI yesterday and is currently on IV antibiotics. Today, the patient states that he is feeling well. He denies fever, chills, rigors, shortness breath, abdominal pain, and chest pain at this time. Objective - Vital Signs Vital signs: Vital Signs Temp 98.3 F 12/17/17 06:31 Pulse 86 12/17/17 06:31 Resp 17 12/17/17 06:31 BP 145/96 12/17/17 06:31 Pulse Ox 98 12/17/17 06:31 Intake & Output 12/16/17 12/17/17 12/17/17 18:59 06:59 18:59 Intake Total 570.0 600 Output Total 450 2900 Balance 120.0 -2300 Weight 138.9 kg Intake: IV 570.0 Piperacillin-Tazobactam 3 50.0 .375 gm In Dextrose/Water 1 50ml.bag @ 12.5 mls/hr IVPB Q8HR [facility] Rx#: [id number] Sodium Chloride 0.9% 1, 520 000 ml @ 100 mls/hr IV . Q10H [facility] Rx#:[id number] Oral 600 Output: Urine 450 2900 Other: Voiding Method Urinal # Voids 0 - Exam The patient is a 52-year-old male who is in no acute distress. He is alert and oriented 3. Vital signs are stable at this time. Exam of the left foot reveals chronic wounds to the medial and lateral dorsal foot which are unchanged. The area of redness on the medial heel has continued to improve since admission. He has continued to have some induration of the heel. Sensation is dull secondary to neuropathy. He is able to wiggle his toes and move his foot slightly. Dressing was changed today and medhoney was applied. - Labs CBC & Chem 7: 12/17/17 08:02 12/17/17 08:02 Labs: Abnormal Lab Results - Last 24 Hours (Table) 12/15/17 12/16/17 12/16/17 Range/Units 12:55 11:49 16:42 RBC (4.30-5.90) m/uL Hgb (13.0-17.5) gm/dL Hct (39.0-53.0) % POC Glucose (mg/dL) 153 H 173 H (75-99) mg/dL Hemoglobin A1c 7.7 H (4.0-6.0) % 12/16/17 12/17/17 Range/Units 20:41 08:02 RBC 3.92 L (4.30-5.90) m/uL Hgb 10.7 L (13.0-17.5) gm/dL Hct 32.8 L (39.0-53.0) % POC Glucose (mg/dL) 202 H (75-99) mg/dL Hemoglobin A1c (4.0-6.0) % Microbiology - Last 24 Hours (Table) 12/15/17 08:45 Blood Culture - Preliminary Blood No Growth after 48 hours 12/15/17 08:14 Blood Culture - Preliminary Blood No Growth after 48 hours 12/15/17 04:42 Blood Culture - Preliminary Blood No Growth after 48 hours 12/15/17 18:14 Urine Culture - Preliminary Urine,Clean Catch - Imaging and Cardiology MRI of the left foot dated 12/17/2017 reveals findings that suggest neuropathic foot, possible osteoarthritis, septic joint was discussed on plain film. Assessment and Plan (1) Cellulitis of left ankle Current Visit: Yes Status: Acute Code(s): L03.116 - CELLULITIS OF LEFT LOWER LIMB SNOMED Code(s): 92063326 (2) Septic arthritis of left ankle Current Visit: No Status: Acute Code(s): M00.9 - PYOGENIC ARTHRITIS, UNSPECIFIED SNOMED Code(s): 70856223 (3) Charcot ankle Current Visit: No Status: Chronic Code(s): M14.679 - CHARCOT'S JOINT, UNSPECIFIED ANKLE AND FOOT SNOMED Code(s): 824568873 Plan: The clinical and MRI findings were discussed with the patient. The case was discussed at length with Dr. Mcneil. He will continue on IV antibiotics and local wound care per Dr. Mi. The patient seems to be improving with antibiotics. We will await further recommendations by Dr. Mi to decide whether surgical intervention is needed at this time. We will continue to follow closely.
[2017-12-17] MEDS: DAPTOmycin 750 MG in SODIUM CHLORIDE 0.9% 50 ML IVPB SCH (11:37)
--- NOTE | 2017-12-17 11:38 | P.PN ---
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 The patient comes in to the emergency department yesterday due to concerns of a recurrent infection in the left foot. The patient's medial malleolus area of the left foot is swollen and that and warm and this obviously raises the concern for recurrent infection. The patient has open wounds in the left foot however the base of the wound is covered with healthy remission tissue and there is no active drainage. Nevertheless there is an area of the medial malleolus extending to the left lower extremity area which is red and there is a concern of an underlying abscess formation/ cellulitis. For that reason the patient came in. The patient was admitted to the hospital. He was afebrile. No significant leukocytosis. He was given antibiotics including vancomycin. Fluids vancomycin treatment and within the first 10 minutes the patient developed an acute reaction. He became hypotensive and he became short of breath and flushed. The antibiotic was discontinued. The patient got moved to the intensive care unit. He is currently on pressors and 7 mics of levo for hemodynamic support. He was given a total of 2 L of IV fluids. Renal function is stable. The risk of 10.4. No significant bandemia. Covered and with a combination of Zosyn and daptomycin. ID consultation is in place. Surgical consultation is also been placed. Awake and alert. No altered mentation. No other complaint otherwise for now. Note that this patient was in the hospital back in September 2017 for an acute septic arthritis of the left ankle. At that time the patient underwent irrigation and debridement and the patient was found to have MSSA in the blood and wound. During the course of the treatment the patient had ARDS with acute hypoxic history failure requiring intubation mechanical ventilation and his treatment was prolonged and during the process of the patient required a tracheostomy tube insertion and PEG tube insertion. Ultimately the patient was weaned off and he was sent to [facility] and he was decannulated and currently his tracheostomy site has nicely healed. He was receiving outpatient antibiotics for a right upper extremity PICC line and he was given IV Rocephin which she completed on 11/28/2017. His been off antibiotics since. He is applying many honey to the open wound area and his left foot. Reevaluated today on 12/16/2017, patient seems to be doing a bit better today, norepinephrine was discontinued early this morning, remains on IV fluid at 100 mL/h, hemodynamically stable, on antibiotics empirically, yet to be seen by infectious disease on consultation. Patient has good urine output. Labs showed relatively normal CBC, normal electrolytes, normal renal profile. Blood cultures are negative so far. Patient denies any shortness of breath no cough no wheezing no chest pain. On 12/17/2017 patient seen in follow-up surgical floor. He is resting comfortably in bed, denies any acute distress, denies any shortness of breath, no chest pain, room air pulse ox is 98%, vital signs are stable, no fever or chills, hemodynamically stable. Lung sounds are are positive for coarse breath sounds over left lower lobe, with crackles, yesterday's chest x-ray on 2017 has been reviewed [address] Dr[address] Alvarez, and showed mild bibasilar infiltrates, likely atelectasis, improving. Denies any pulmonary complaints. He has been ambulating, and his weightbearing on his left lower extremity, remains swollen, the pain is reasonably controlled on oral narcotic analgesics. It is Geoffrey wrapped, and ID service is following. Patient is currently on accommodation of Zosyn and daptomycin, and his cultures are negative to date. His lab work has been reviewed, no leukocytosis, WBC is 8.3, hemoglobin is 10.7, electrolytes and renal profile are all within normal limits. Patient remains stable, we will sign off of the patient on as-needed basis. Objective - Vital Signs Vital signs: Vital Signs Temp 98.3 F 12/17/17 06:31 Pulse 86 12/17/17 06:31 Resp 17 12/17/17 06:31 BP 145/96 12/17/17 06:31 Pulse Ox 98 12/17/17 06:31 Intake & Output 12/16/17 12/17/17 12/17/17 18:59 06:59 18:59 Intake Total 570.0 600 Output Total 450 2900 Balance 120.0 -2300 Weight 138.9 kg Intake: IV 570.0 Piperacillin-Tazobactam 3 50.0 .375 gm In Dextrose/Water 1 50ml.bag @ 12.5 mls/hr IVPB Q8HR [facility] Rx#: [id number] Sodium Chloride 0.9% 1, 520 000 ml @ 100 mls/hr IV . Q10H [facility] Rx#:[id number] Oral 600 Output: Urine 450 2900 Other: Voiding Method Urinal # Voids 0 - Exam Physical Exam: Revealed a 52-year-old white male in no distress. Head: Atraumatic, normocephalic. HEENT:[Neck is supple.] [No neck masses.] [No thyromegaly.] [No JVD.] PERRLA, EOMI, throat is clear, moist mucous membranes noted. Chest: [Coarse breath sounds over left lower base, good air entry noted bilaterally, no wheezes, no rales] Cardiac Exam: [Normal S1 and S2, no S3 gallop, no murmur.] Abdomen: Obese, [Soft, nontender, no megaly, no rebound, no guarding, normal bowel sounds.] Extremities: No signs or symptoms of DVT; no calf pain Significant swelling over the left foot and ankle Evidence of healing wounds over the medial anterior and lateral anterior left foot in which wounds continue to be incompletely healed Left lateral anterior foot wound has scabbed over Left medial anterior foot wound continues to be open with somewhat discharge present at the wound site No evidence of significant erythema or obvious sign of acute infection at the previous wound sites Evidence of erythema and induration with pain to palpation over the left medial and posterior heel and ankle Neurological Exam: [No focal neurologic deficit. Lymphatics: No lymphadenopathy. Psychiatric: Normal mood affect and mental status examination.] - Labs CBC & Chem 7: 12/17/17 08:02 12/17/17 08:02 Labs: Abnormal Lab Results - Last 24 Hours (Table) 12/15/17 12/16/17 12/16/17 Range/Units 12:55 11:49 16:42 RBC (4.30-5.90) m/uL Hgb (13.0-17.5) gm/dL Hct (39.0-53.0) % POC Glucose (mg/dL) 153 H 173 H (75-99) mg/dL Hemoglobin A1c 7.7 H (4.0-6.0) % 12/16/17 12/17/17 Range/Units 20:41 08:02 RBC 3.92 L (4.30-5.90) m/uL Hgb 10.7 L (13.0-17.5) gm/dL Hct 32.8 L (39.0-53.0) % POC Glucose (mg/dL) 202 H (75-99) mg/dL Hemoglobin A1c (4.0-6.0) % Microbiology - Last 24 Hours (Table) 12/15/17 08:45 Blood Culture - Preliminary Blood No Growth after 48 hours 12/15/17 08:14 Blood Culture - Preliminary Blood No Growth after 48 hours 12/15/17 04:42 Blood Culture - Preliminary Blood No Growth after 48 hours 12/15/17 18:14 Urine Culture - Preliminary Urine,Clean Catch Assessment and Plan Plan: Assessment: 1 acute septic shock and septic arthritis. 2 MSSA septicemia related to an ankle septic arthritis back in September 2017 status post incision and drainage and irrigation with cultures showing positive MSSA in the blood and in the wound. Patient received outpatient about x-ray PICC line in the right upper extremity and just completed the course of IV Rocephin 3 acute hypotension, resolved. Rule out underlying sepsis. Rule out side effects/reaction to vancomycin. Currently on a combination of fluids and the patient received a total of 2 L of IV fluids and the patient is also receiving norepinephrine infusion 4 diabetes mellitus with diabetic peripheral neuropathy and Charcot joints 5 chronic wound and ulceration of the lower oximetry is bilaterally 6 morbid obesity with interval weight loss 7 hypertension 8 hyperlipidemia 9 hypothyroidism 10 recent hospitalization for sepsis complicated by respiratory failure/ARDS requiring intubation, mechanical ventilation and tracheostomy tube insertion Recommendation: Patient remains hemodynamically stable, no fever or chills, leukocytosis, cultures are negative so far, continues and accommodation of Zosyn and daptomycin, ID service is following. Denies pulmonary complaints, he is on room air, no dyspnea, no chest pain. From pulmonary/critical care standpoint patient is stable, we will sign off at this time, and follow on as-needed basis. I performed a history & physical examination of the patient and discussed their management with my nurse practitioner, Kandice Dennison. I reviewed the nurse practitioner's note and agree with the documented findings and plan of care. Lung sounds are positive for some coarse breath sounds over left lower lobe, otherwise no wheezes noted, good air entry noted bilaterally, no pulmonary complaints. The findings and the impression was discussed with the patient. I attest to the documentation by the nurse practitioner. Time with Patient: Less than 30
[2017-12-17 12:07] LABS: Glucose,Whole Blood 135 mg/dL (75-99)
[2017-12-17 17:07] LABS: Glucose,Whole Blood 222 mg/dL (75-99)
--- NOTE | 2017-12-17 19:00 | P.PN ---
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 Patient's was transferred to longterm and recently got discharge from [place] over the last 3 weeks and he has have visiting nurse every other day. This time presents with possible worsening left foot infection and ankle, as the visiting nurse noticed some erythematous discolorations on the medial side of the left ankle. The rest of the chart, foods including an opening wound on the medial side of the foot looks the same as per patient After admissions while the patient was taken vancomycin he was found to be hypotensive and transferred to the ICU with pressors and besides IV fluids and antibiotic treatment is been already evaluated by intensive care unit specialist production control coordinator. Suspicious for possible septic shock versus vancomycin reaction/side effects. Patient was started on Zosyn and daptomycin and infection is under orthopedic team will been called. On admissions his WBC was 10.4 K patient is afebrile. Hemoglobin 11.8. Platelets 435. Creatinine 0.7 sodium 139 lactic acid 1.6. Left foot x-ray shows destructive lesions of the mid foods worsened compared to 10/11/2017 with possible osteomyelitis. Venous Doppler was negative for DVT on the left side however left groin shows prominent lymph nodes 11/15/2017 Patient remains in the ICU, also pressors. Blood pressure improved but still on the low side on IV fluids. Patient administered, but needs monitoring in the ICU. With at least 24 hours monitoring as per scalp specialist note. Patient will need to continue with his stroke antibiotics daptomycin and Zosyn. Vancomycin is on hold due to possible adverse reaction. The left ankle is erythematous, hot. With open wound in the medial side of. Patient has left chocolate foot. He confirms to me he was known weight bearing of his left foot. 11/16/2017 Patient erythema and swelling over his left ankle is improving. Patient was transferred from the ICU to the general medical floor. Still pending cultures and other recommendation from specialists Objective - Vital Signs Vital signs: Vital Signs Temp 98.2 F 12/17/17 15:02 Pulse 87 12/17/17 15:02 Resp 18 12/17/17 15:02 BP 167/86 12/17/17 15:02 Pulse Ox 95 12/17/17 15:02 Intake & Output 12/16/17 12/17/17 12/17/17 18:59 06:59 18:59 Intake Total 570.0 600 Output Total 450 2900 600 Balance 120.0 -2300 -600 Weight 138.9 kg Intake: IV 570.0 Piperacillin-Tazobactam 3 50.0 .375 gm In Dextrose/Water 1 50ml.bag @ 12.5 mls/hr IVPB Q8HR [facility] Rx#: [id number] Sodium Chloride 0.9% 1, 520 000 ml @ 100 mls/hr IV . Q10H [facility] Rx#:[id number] Oral 600 Output: Urine 450 2900 600 Other: Voiding Method Urinal # Voids 0 - Exam GENERAL: The patient is alert and oriented x3, not in any acute distress. Well developed, well nourished. HEENT: Pupils are round and equally reacting to light. EOMI. No scleral icterus. No conjunctival pallor. Normocephalic, atraumatic. No pharyngeal erythema. No thyromegaly. CARDIOVASCULAR: S1 and S2 present. No murmurs, rubs, or gallops. PULMONARY: Chest is clear to auscultation, no wheezing or crackles. ABDOMEN: Soft, nontender, nondistended, normoactive bowel sounds. No palpable organomegaly. MUSCULOSKELETAL: No joint swelling or deformity. EXTREMITIES: No cyanosis, clubbing, or pedal edema. -left Charcot joint with open wound on the medial side, with yellowish base and no surrounding erythema or abnormal discharge [looks chronic]. Also has some erythema and hardness on the ankle especially on the medial side NEUROLOGICAL: Gross neurological examination did not reveal any focal deficits. SKIN: No rashes. - Labs CBC & Chem 7: 12/17/17 08:02 12/17/17 08:02 Labs: Abnormal Lab Results - Last 24 Hours (Table) 12/16/17 12/17/17 12/17/17 Range/Units 20:41 08:02 12:01 RBC 3.92 L (4.30-5.90) m/uL Hgb 10.7 L (13.0-17.5) gm/dL Hct 32.8 L (39.0-53.0) % POC Glucose (mg/dL) 202 H 135 H (75-99) mg/dL 12/17/17 Range/Units 17:04 RBC (4.30-5.90) m/uL Hgb (13.0-17.5) gm/dL Hct (39.0-53.0) % POC Glucose (mg/dL) 222 H (75-99) mg/dL Microbiology - Last 24 Hours (Table) 12/15/17 18:14 Urine Culture - Final Urine,Clean Catch 12/15/17 08:45 Blood Culture - Preliminary Blood No Growth after 48 hours 12/15/17 08:14 Blood Culture - Preliminary Blood No Growth after 48 hours 12/15/17 04:42 Blood Culture - Preliminary Blood No Growth after 48 hours Assessment and Plan Plan: -Shock, most likely septic shock. Patient to continue in the ICU for now. IV pressors on hold as his blood pressure is improved extremities on the low normal side. maintenance specialist input is appreciated. -Left food and ankle cellulitis, possible septic arthritis on the top of left chocolate fluid. Patient on antibiotics Zosyn and daptomycin. Orthopedic team seeing the patient and they recommended MRI of the left ankle. ID has been consulted -Diabetes mellitus, continue with same treatment, Levemir 50 units at bedtime -Diabetic neuropathy on gabapentin -Charcot joints -Hypertension, continue same treatment -Hyperlipidemia continue the same treatment GI prophylaxis Pepcid DVT prophylaxis heparin Prognosis is guarded
[2017-12-17 20:38] LABS: Glucose,Whole Blood 225 mg/dL (75-99)
[2017-12-17] MEDS: MORPHINE SULFATE 2 MG/ML SYRINGE IV PRN (21:40)
[2017-12-17] MEDS: INSULIN DETEMIR 100 UNIT/ML 10 ML VIAL SQ SCH (21:43)
[2017-12-17] MEDS: ATORVASTATIN 10 MG TAB PO SCH (21:46)
--- NOTE | 2017-12-18 00:05 | P.PN ---
Subjective Progress Note Date: 12/17/17 52 year old male who is well-known to the infectious disease service regarding his recent hospitalization, at that time he nearly one month in Hospital regarding the sever infection of the left foot and ankle from his charcot foot infection with MSSA much better at this time.He developed septic shock with respiratory failure and acute renal failure. Eventually he improved and was transferred to the subacute rehabilitation facility where he was successfully weaned from the ventilator, tracheostomy was decannulated and his PEG tube was removed. He's now been in the home setting for several weeks and doing relatively well. The wound to the left ankle was showing improvement. He was seen by his visiting nurse and there was concerns to some increasing erythema. He was sent to the emergency center. Because concerns of that site he was given a dose of vancomycin, apparently directly after was given he became hypotensive and became acutely ill. Transfer to intensive care unit. At this time is feeling well sitting upright in a chair and doesn't feel ill at the moment. His hypotensive event has completely resolved and his vasopressors have been removed. He's had no fever or chills. The pain in the area is minimal he does have neuropathy. He generally is feeling much better at this time. 12/17/2017 patient is definitely improved. He is out of the intensive care unit. Sitting upright eating well. No further hypotension or any significant reactions from current antibiotic therapy. Patient's questions have been answered. MRI is been performed await discussion with the orthopedic foot and ankle specialist. Objective - Vital Signs Vital signs: Vital Signs Temp 98.4 F 12/17/17 22:43 Pulse 82 12/17/17 22:43 Resp 17 12/17/17 22:43 BP 165/81 12/17/17 22:43 Pulse Ox 95 12/17/17 22:43 Intake & Output 12/17/17 12/17/17 12/18/17 06:59 18:59 06:59 Intake Total 600 Output Total 2900 600 600 Balance -2300 -600 -600 Weight 138.9 kg 138.9 kg Intake: Oral 600 Output: Urine 2900 600 600 Other: Voiding Method Urinal Urinal # Voids 0 1 # Bowel Movements 0 - Exam Pleasant 52-year-old male sitting up in a chair looking quite comfortable he has eaten his meal without difficulty HEENT: Anicteric conjunctiva are pink and moist nasal mucosa grossly intact without significant lesions, there is no thrush. Neck: The neck is supple without significant lymphadenopathy or thyromegaly. Lungs: Good bilateral air entry without significant crackles or wheezing. There is no significant bronchial sounds. There is no egophony or dullness. Heart: Regular rate and rhythm with an audible S1-S2, no S3 no S4. There is no significant murmur click or rub, PMI was nondisplaced. Abdomen: Positive bowel sounds soft and nontender without palpable masses or organomegaly. There was no guarding or rebound. Extremities: The upper extremities have excellent pulses they are symmetric, no significant petechiae or telangiectasia. No splinter hemorrhages were noted. Right lower extremity is without acute abnormalities. A left lower extremities shows the 2 ulcerations please see the nursing photography for the exact location of the 2 ulcerations that are improved from the last evaluation. There is no expressible purulence. In the medial posterior aspect of the heel below the medial malleolus is a small area of erythema, so the area the nurse was concerned about. It is not fluctuant or indurated. It is not warm to touch. He has neuropathy and it is not very tender. There is no ascending erythema. There is no expressible purulence or even the open ulcerations. Neuro: Awake alert oriented to person place and time. There are no acute new gross focal sensory motor deficits. - Labs CBC & Chem 7: 12/17/17 08:02 12/17/17 08:02 Labs: Abnormal Lab Results - Last 24 Hours (Table) 12/17/17 12/17/17 12/17/17 Range/Units 08:02 12:01 17:04 RBC 3.92 L (4.30-5.90) m/uL Hgb 10.7 L (13.0-17.5) gm/dL Hct 32.8 L (39.0-53.0) % POC Glucose (mg/dL) 135 H 222 H (75-99) mg/dL 12/17/17 Range/Units 20:35 RBC (4.30-5.90) m/uL Hgb (13.0-17.5) gm/dL Hct (39.0-53.0) % POC Glucose (mg/dL) 225 H (75-99) mg/dL Microbiology - Last 24 Hours (Table) 12/15/17 18:14 Urine Culture - Final Urine,Clean Catch 12/15/17 08:45 Blood Culture - Preliminary Blood No Growth after 48 hours 12/15/17 08:14 Blood Culture - Preliminary Blood No Growth after 48 hours 12/15/17 04:42 Blood Culture - Preliminary Blood No Growth after 48 hours Laboratory Results WBC 8.3 k/uL (3.8-10.6) 12/17/17 08:02 RBC 3.92 m/uL (4.30-5.90) L 12/17/17 08:02 Hgb 10.7 gm/dL (13.0-17.5) L 12/17/17 08:02 Hct 32.8 % (39.0-53.0) L 12/17/17 08:02 MCV 83.7 fL (80.0-100.0) 12/17/17 08:02 MCH 27.3 pg (25.0-35.0) 12/17/17 08:02 MCHC 32.7 g/dL (31.0-37.0) 12/17/17 08:02 RDW 14.8 % (11.5-15.5) 12/17/17 08:02 Plt Count 401 k/uL (150-450) 12/17/17 08:02 Neutrophils % 69 % 12/17/17 08:02 Lymphocytes % 15 % 12/17/17 08:02 Monocytes % 7 % 12/17/17 08:02 Eosinophils % 5 % 12/17/17 08:02 Basophils % 1 % 12/17/17 08:02 Neutrophils # 5.8 k/uL (1.3-7.7) 12/17/17 08:02 Lymphocytes # 1.2 k/uL (1.0-4.8) 12/17/17 08:02 Monocytes # 0.6 k/uL (0-1.0) 12/17/17 08:02 Eosinophils # 0.4 k/uL (0-0.7) 12/17/17 08:02 Basophils # 0.1 k/uL (0-0.2) 12/17/17 08:02 Hypochromasia Slight 12/17/17 08:02 Sodium 139 mmol/L (137-145) 12/17/17 08:02 Potassium 4.3 mmol/L (3.5-5.1) 12/17/17 08:02 Chloride 103 mmol/L (98-107) 12/17/17 08:02 Carbon Dioxide 27 mmol/L (22-30) 12/17/17 08:02 Anion Gap 9 mmol/L 12/17/17 08:02 BUN 14 mg/dL (9-20) 12/17/17 08:02 Creatinine 0.68 mg/dL (0.66-1.25) 12/17/17 08:02 Est GFR (CKD-EPI)AfAm >90 (>60 ml/min/1.73 sqM) 12/17/17 08:02 Est GFR (CKD-EPI)NonAf >90 (>60 ml/min/1.73 sqM) 12/17/17 08:02 Glucose 95 mg/dL (74-99) 12/17/17 08:02 POC Glucose (mg/dL) 225 mg/dL (75-99) H 12/17/17 20:35 POC Glu Tierce Filler ID 12/17/17 20:[address] Glu mg/dL 174 12/15/17 12:55 Hemoglobin A1c 7.7 % (4.0-6.0) H 12/15/17 12:55 Plasma Lactic Acid Ron 1.4 mmol/L (0.7-2.0) 12/15/17 12:55 Calcium 9.1 mg/dL (8.4-10.2) 12/17/17 08:02 Phosphorus 3.7 mg/dL (2.5-4.5) 12/17/17 08:02 Magnesium 2.1 mg/dL (1.6-2.3) 12/17/17 08:02 C-Reactive Protein 36.5 mg/L (<10.0) H 12/15/17 01:40 Urine Color Yellow 12/15/17 18:45 Urine Appearance Clear (Clear) 12/15/17 18:45 Urine pH 5.5 (5.0-8.0) 12/15/17 18:45 Ur Specific Kendall 1.020 (1.001-1.035) 12/15/17 18:45 Urine Protein 1+ (Negative) H 12/15/17 18:45 Urine Glucose (UA) 1+ (Negative) H 12/15/17 18:45 Urine Ketones Negative (Negative) 12/15/17 18:45 Urine Blood Negative (Negative) 12/15/17 18:45 Urine Nitrite Negative (Negative) 12/15/17 18:45 Urine Bilirubin Negative (Negative) 12/15/17 18:45 Urine Urobilinogen <2.0 mg/dL (<2.0) 12/15/17 18:45 Ur Leukocyte Esterase Negative (Negative) 12/15/17 18:45 Urine RBC 1 /hpf (0-5) 12/15/17 18:45 Urine WBC 4 /hpf (0-5) 12/15/17 18:45 Amorphous Sediment Rare /hpf (None) H 12/15/17 18:45 Hyaline Casts 13 /lpf (0-2) H 12/15/17 18:45 Urine Mucus Occasional /hpf (None) H 12/15/17 18:45 Microbiology 12/15/17 18:14 Urine,Clean Catch Urine Culture - Final 12/15/17 08:45 Blood Blood Culture - Preliminary No Growth after 48 hours 12/15/17 08:14 Blood Blood Culture - Preliminary No Growth after 48 hours 12/15/17 04:42 Blood Blood Culture - Preliminary No Growth after 48 hours Assessment and Plan (1) Acute hypotension Current Visit: Yes Status: Acute Code(s): I95.9 - HYPOTENSION, UNSPECIFIED SNOMED Code(s): 14495326 (2) Poorly controlled type 2 diabetes mellitus with complication Current Visit: Yes Status: Chronic Code(s): E11.8 - TYPE 2 DIABETES MELLITUS WITH UNSPECIFIED COMPLICATIONS; E11.65 - TYPE 2 DIABETES MELLITUS WITH HYPERGLYCEMIA SNOMED Code(s): 61553090 (3) Charcot ankle Current Visit: No Status: Chronic Code(s): M14.679 - CHARCOT'S JOINT, UNSPECIFIED ANKLE AND FOOT SNOMED Code(s): 120494216 (4) Cellulitis of left ankle Narrative/Plan: 52-year-old male presents to Hospital from home after the visiting nurse evaluated and had concerns continue erythema to the posterior aspect of the left ankle where he has the open ulcerations from his surgery for the Charcot ankle MSSA infection. With his history of profound sepsis he was admitted for further evaluation. It appears after his first dose of vancomycin therapy he had an acute reaction and became hypotensive and acutely ill. He is now rapidly recovering and feels considerably better. He's had no significant fever, chills or rigors. He is not having severe leukocytosis and does not feel ill as he did when the ankle was grossly infected. He does have some neuropathy and is not having much pain. The area posterior ankle is mild concern since there is some minimal color change in the area. Consequently antibiotics are being given for now and as cultures become available we'll then be able to construct the next plan. Local wound care was of medical honey changed on a daily basis to the open ulcerations. Limb should be elevated while he is at rest. His anemia is improving. His acute renal failure for his last stay has completely resolved and has not recurred. Hemoglobin A1c is down to 7.7 from is 9.9 months ago showing a marked improvement of his glucose control which she is continue to strive to improve. His BMI is down to 40. 12/17/2017 patient is having further improvement today. Out of intensive care unit. Feeling better. Cellulitis is improving. It is still awaiting cultures and follow-up with the foot and ankle specialist regarding the MRI and if there is any true progression. Patient is stable without fevers chills rigors or leukocytosis. Does not appear to have sepsis and overall is improved from 1 month ago. Current Visit: Yes Status: Acute Code(s): L03.116 - CELLULITIS OF LEFT LOWER LIMB SNOMED Code(s): 83802601
[2017-12-18 07:13] LABS: Glucose,Whole Blood 140 mg/dL (75-99)
[2017-12-18 08:31] LABS: Basophils # (A) 0.1 k/uL (0-0.2); Basophils % (A) 1 %; Eosinophils # (A) 0.4 k/uL (0-0.7); Eosinophils % (A) 4 %; HCT 33.5 % (39.0-53.0); HGB 10.8 gm/dL (13.0-17.5); Lymphocytes # (A) 1.4 k/uL (1.0-4.8); Lymphocytes % (A) 18 %; MCH 26.4 pg (25.0-35.0); MCHC 32.3 g/dL (31.0-37.0); MCV 81.6 fL (80.0-100.0); Mean Platelet Volume 6.8; Monocytes # (A) 0.6 k/uL (0-1.0); Monocytes % (A) 8 %; Neutrophils # (A) 5.3 k/uL (1.3-7.7); Neutrophils % (A) 67 %; Platelet Count 376 k/uL (150-450); RBC 4.11 m/uL (4.30-5.90); WBC 7.9 k/uL (3.8-10.6)
[2017-12-18 09:47] LABS: Anion Gap 9 mmol/L; Blood Urea Nitrogen 10 mg/dL (9-20); Calcium 9.2 mg/dL (8.4-10.2); Carbon Dioxide 27 mmol/L (22-30); Chloride 103 mmol/L (98-107); Glucose 141 mg/dL (74-99); Magnesium 1.9 mg/dL (1.6-2.3); Phosphorus 4.1 mg/dL (2.5-4.5); Potassium 4.7 mmol/L (3.5-5.1); Sodium 139 mmol/L (137-145)
[2017-12-18] MEDS: HEPARIN SODIUM,PORCINE 5,000 UNIT/ML 1 ML VIAL SQ SCH ×3 (10:55→23:44)
[2017-12-18] MEDS: LEVOTHYROXINE 75 MCG TAB PO SCH (10:55)
[2017-12-18] MEDS: PANTOPRAZOLE 40 MG TABLET PO SCH (10:55)
[2017-12-18] MEDS: INSULIN ASPART 100 UNIT/ML 1 ML 10 ML VIAL SQ SCH ×4 (10:55→21:55)
[2017-12-18] MEDS: PREGABALIN 100 MG CAP PO SCH ×3 (10:56→22:01)
[2017-12-18] MEDS: SODIUM CHLORIDE 0.9% 1,000 ML IV SCH ×2 (10:56→17:44)
[2017-12-18] MEDS: GABAPENTIN 300 MG CAP PO SCH (10:56)
[2017-12-18] MEDS: PIPERACILLIN-TAZOBACTAM 3.375 GM in DEXTROSE/WATER 1 50ML.BAG IVPB SCH ×3 (10:56→23:41)
--- NOTE | 2017-12-18 11:20 | P.PN ---
Subjective Progress Note Date: 12/18/17 Principal diagnosis: Sepsis and left foot infection The patient is a pleasant 52-year-old male whom we've been following for right foot and ankle cellulitis and septic arthritis. He underwent an MRI of the left ankle and is currently on IV antibiotics. Today, the patient states that he is feeling well. He denies fever, chills, rigors, shortness breath, abdominal pain, and chest pain at this time. Objective - Vital Signs Vital signs: Vital Signs Temp 98.4 F 12/17/17 22:43 Pulse 82 12/17/17 22:43 Resp 17 12/17/17 22:43 BP 165/81 12/17/17 22:43 Pulse Ox 95 12/17/17 22:43 Intake & Output 12/17/17 12/18/17 12/18/17 18:59 06:59 18:59 Output Total 600 600 Balance -600 -600 Weight 138.9 kg Output: Urine 600 600 Other: Voiding Method Urinal # Voids 1 # Bowel Movements 0 - Exam The patient is a 52-year-old male who is in no acute distress. He is alert and oriented 3. Vital signs are stable at this time. Exam of the left foot reveals chronic wounds to the medial and lateral dorsal foot which are unchanged. The area of redness on the medial heel has continued to improve since admission. He has continued to have some induration of the heel. Sensation is dull secondary to neuropathy. He is able to wiggle his toes and move his foot slightly. - Labs CBC & Chem 7: 12/18/17 07:04 12/17/17 08:02 Labs: Abnormal Lab Results - Last 24 Hours (Table) 12/17/17 12/17/17 12/17/17 Range/Units 12:01 17:04 20:35 RBC (4.30-5.90) m/uL Hgb (13.0-17.5) gm/dL Hct (39.0-53.0) % POC Glucose (mg/dL) 135 H 222 H 225 H (75-99) mg/dL 12/18/17 12/18/17 Range/Units 07:04 07:09 RBC 4.11 L (4.30-5.90) m/uL Hgb 10.8 L (13.0-17.5) gm/dL Hct 33.5 L (39.0-53.0) % POC Glucose (mg/dL) 140 H (75-99) mg/dL Microbiology - Last 24 Hours (Table) 12/15/17 08:45 Blood Culture - Preliminary Blood No Growth after 72 hours 12/15/17 08:14 Blood Culture - Preliminary Blood No Growth after 72 hours 12/15/17 04:42 Blood Culture - Preliminary Blood No Growth after 72 hours 12/15/17 18:14 Urine Culture - Final Urine,Clean Catch Assessment and Plan (1) Cellulitis of left ankle Current Visit: Yes Status: Acute Code(s): L03.116 - CELLULITIS OF LEFT LOWER LIMB SNOMED Code(s): 41536347 (2) Septic arthritis of left ankle Current Visit: No Status: Acute Code(s): M00.9 - PYOGENIC ARTHRITIS, UNSPECIFIED SNOMED Code(s): 47176686 (3) Charcot ankle Current Visit: No Status: Chronic Code(s): M14.679 - CHARCOT'S JOINT, UNSPECIFIED ANKLE AND FOOT SNOMED Code(s): 917547143 Plan: The clinical and MRI findings were discussed with the patient. The case was discussed at length with Dr. Mcneil. He was evaluated by Dr. Mcneil today. He will continue on IV antibiotics and local wound care per Dr. Mi. The patient seems to be improving with antibiotics. No surgical intervention is recommended at this time. He may be discharged from an orthopedic standpoint with follow up on an oupatient basis. We will continue to follow closely while he is in the hospital.
[2017-12-18] MEDS: DAPTOmycin 750 MG in SODIUM CHLORIDE 0.9% 50 ML IVPB SCH (11:22)
[2017-12-18 11:41] LABS: Glucose,Whole Blood 232 mg/dL (75-99)
[2017-12-18] MEDS: HYDROcodone/APAP 5-325MG 1 EACH TAB PO PRN ×2 (15:03→22:01)
[2017-12-18 17:28] LABS: Glucose,Whole Blood 176 mg/dL (75-99)
[2017-12-18 21:11] LABS: Glucose,Whole Blood 251 mg/dL (75-99)
--- NOTE | 2017-12-18 21:39 | P.PN ---
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 Patient's was transferred to [facility] and recently got discharge from [facility] over the last 3 weeks and he has have visiting nurse every other day. This time presents with possible worsening left foot infection and ankle, as the visiting nurse noticed some erythematous discolorations on the medial side of the left ankle. The rest of the chart, foods including an opening wound on the medial side of the foot looks the same as per patient After admissions while the patient was taken vancomycin he was found to be hypotensive and transferred to the ICU with pressors and besides IV fluids and antibiotic treatment is been already evaluated by intensive care unit specialist commercial lending relationship manager. Suspicious for possible septic shock versus vancomycin reaction/side effects. Patient was started on Zosyn and daptomycin and infection is under orthopedic team will been called. On admissions his WBC was 10.4 K patient is afebrile. Hemoglobin 11.8. Platelets 435. Creatinine 0.7 sodium 139 lactic acid 1.6. Left foot x-ray shows destructive lesions of the mid foods worsened compared to 10/11/2017 with possible osteomyelitis. Venous Doppler was negative for DVT on the left side however left groin shows prominent lymph nodes 11/15/2017 Patient remains in the ICU, also pressors. Blood pressure improved but still on the low side on IV fluids. Patient administered, but needs monitoring in the ICU. With at least 24 hours monitoring as per property preservation specialist note. Patient will need to continue with his stroke antibiotics daptomycin and Zosyn. Vancomycin is on hold due to possible adverse reaction. The left ankle is erythematous, hot. With open wound in the medial side of. Patient has left chocolate foot. He confirms to me he was known weight bearing of his left foot. 11/16/2017 Patient erythema and swelling over his left ankle is improving. Patient was transferred from the ICU to the general medical floor. Still pending cultures and other recommendation from specialists Objective - Vital Signs Vital signs: Vital Signs Temp 98.6 F 12/18/17 15:41 Pulse 78 12/18/17 19:10 Resp 20 12/18/17 19:10 BP 170/99 12/18/17 15:41 Pulse Ox 96 12/18/17 15:41 Intake & Output 12/18/17 12/18/17 12/19/17 06:59 18:59 06:59 Output Total 600 Balance -600 Weight 138.9 kg Output: Urine 600 Other: Voiding Method Urinal Urinal Urinal # Voids 1 2 # Bowel Movements 0 - Exam GENERAL: The patient is alert and oriented x3, not in any acute distress. Well developed, well nourished. HEENT: Pupils are round and equally reacting to light. EOMI. No scleral icterus. No conjunctival pallor. Normocephalic, atraumatic. No pharyngeal erythema. No thyromegaly. CARDIOVASCULAR: S1 and S2 present. No murmurs, rubs, or gallops. PULMONARY: Chest is clear to auscultation, no wheezing or crackles. ABDOMEN: Soft, nontender, nondistended, normoactive bowel sounds. No palpable organomegaly. MUSCULOSKELETAL: No joint swelling or deformity. EXTREMITIES: No cyanosis, clubbing, or pedal edema. -left Charcot joint with open wound on the medial side, with yellowish base and no surrounding erythema or abnormal discharge [looks chronic]. Also has some erythema and hardness on the ankle especially on the medial side NEUROLOGICAL: Gross neurological examination did not reveal any focal deficits. SKIN: No rashes. - Labs CBC & Chem 7: 12/18/17 07:04 12/18/17 07:04 Labs: Abnormal Lab Results - Last 24 Hours (Table) 12/18/17 12/18/17 12/18/17 Range/Units 07:04 07:04 07:09 RBC 4.11 L (4.30-5.90) m/uL Hgb 10.8 L (13.0-17.5) gm/dL Hct 33.5 L (39.0-53.0) % Glucose 141 H (74-99) mg/dL POC Glucose (mg/dL) 140 H (75-99) mg/dL 12/18/17 12/18/17 12/18/17 Range/Units 11:39 17:25 20:55 RBC (4.30-5.90) m/uL Hgb (13.0-17.5) gm/dL Hct (39.0-53.0) % Glucose (74-99) mg/dL POC Glucose (mg/dL) 232 H 176 H 251 H (75-99) mg/dL Microbiology - Last 24 Hours (Table) 12/15/17 08:45 Blood Culture - Preliminary Blood No Growth after 72 hours 12/15/17 08:14 Blood Culture - Preliminary Blood No Growth after 72 hours 12/15/17 04:42 Blood Culture - Preliminary Blood No Growth after 72 hours Assessment and Plan Plan: -Shock, most likely septic shock. Patient to continue in the ICU for now. IV pressors on hold as his blood pressure is improved extremities on the low normal side. neuro psych sales specialist input is appreciated. -Left food and ankle cellulitis, possible septic arthritis on the top of left chocolate fluid. Patient on antibiotics Zosyn and daptomycin. Orthopedic team seeing the patient and they recommended MRI of the left ankle. ID has been consulted -Diabetes mellitus, continue with same treatment, Levemir 50 units at bedtime -Diabetic neuropathy on gabapentin -Charcot joints -Hypertension, continue same treatment -Hyperlipidemia continue the same treatment GI prophylaxis Pepcid DVT prophylaxis heparin Prognosis is guarded
[2017-12-18] MEDS: INSULIN DETEMIR 100 UNIT/ML 10 ML VIAL SQ SCH (21:54)
[2017-12-18] MEDS: ATORVASTATIN 10 MG TAB PO SCH (21:56)
--- NOTE | 2017-12-18 23:18 | P.PN ---
Subjective Progress Note Date: 12/18/17 52 year old male who is well-known to the infectious disease service regarding his recent hospitalization, at that time he nearly one month in Hospital regarding the sever infection of the left foot and ankle from his charcot foot infection with MSSA much better at this time.He developed septic shock with respiratory failure and acute renal failure. Eventually he improved and was transferred to the subacute rehabilitation facility where he was successfully weaned from the ventilator, tracheostomy was decannulated and his PEG tube was removed. He's now been in the home setting for several weeks and doing relatively well. The wound to the left ankle was showing improvement. He was seen by his visiting nurse and there was concerns to some increasing erythema. He was sent to the emergency center. Because concerns of that site he was given a dose of vancomycin, apparently directly after was given he became hypotensive and became acutely ill. Transfer to intensive care unit. At this time is feeling well sitting upright in a chair and doesn't feel ill at the moment. His hypotensive event has completely resolved and his vasopressors have been removed. He's had no fever or chills. The pain in the area is minimal he does have neuropathy. He generally is feeling much better at this time. 12/17/2017 patient is definitely improved. He is out of the intensive care unit. Sitting upright eating well. No further hypotension or any significant reactions from current antibiotic therapy. Patient's questions have been answered. MRI is been performed await discussion with the orthopedic foot and ankle specialist. 12/18/2017 patient continues to have improvement. Appetite is well. No further difficulties after the vancomycin infusion. No further hypotension. Feeling better overall. Looking forward to is discharged home. MRI has been discussed with the orthopedic surgeon. At this time agree that there is no significant change in no need for any surgical intervention. The patient actually is doing somewhat better. The wounds to the ankle are marked in her improvement. Overall the patient has had significant improvement with antibiotic therapy. He did have a bit of the cellulitis which responded well to current therapy. Objective - Vital Signs Vital signs: Vital Signs Temp 98.6 F 12/18/17 15:41 Pulse 78 12/18/17 19:10 Resp 20 12/18/17 19:10 BP 170/99 12/18/17 15:41 Pulse Ox 96 12/18/17 15:41 Intake & Output 12/18/17 12/18/17 12/19/17 06:59 18:59 06:59 Intake Total 100 Output Total 600 525 Balance -600 -425 Weight 138.9 kg Intake: Oral 100 Output: Urine 600 525 Other: Voiding Method Urinal Urinal Urinal # Voids 1 2 # Bowel Movements 0 - Exam Pleasant 52-year-old male sitting up in a chair looking quite comfortable he has eaten his meal without difficulty HEENT: Anicteric conjunctiva are pink and moist nasal mucosa grossly intact without significant lesions, there is no thrush. Neck: The neck is supple without significant lymphadenopathy or thyromegaly. Lungs: Good bilateral air entry without significant crackles or wheezing. There is no significant bronchial sounds. There is no egophony or dullness. Heart: Regular rate and rhythm with an audible S1-S2, no S3 no S4. There is no significant murmur click or rub, PMI was nondisplaced. Abdomen: Positive bowel sounds soft and nontender without palpable masses or organomegaly. There was no guarding or rebound. Extremities: The upper extremities have excellent pulses they are symmetric, no significant petechiae or telangiectasia. No splinter hemorrhages were noted. Right lower extremity is without acute abnormalities. A left lower extremities shows the 2 ulcerations please see the nursing photography for the exact location of the 2 ulcerations that are improved from the last evaluation. There is no expressible purulence. In the medial posterior aspect of the heel below the medial malleolus is a small area of erythema, so the area the nurse was concerned about. It is not fluctuant or indurated. It is not warm to touch. He has neuropathy and it is not very tender. There is no ascending erythema. There is no expressible purulence or even the open ulcerations. Neuro: Awake alert oriented to person place and time. There are no acute new gross focal sensory motor deficits. - Labs CBC & Chem 7: 12/18/17 07:04 12/18/17 07:04 Labs: Abnormal Lab Results - Last 24 Hours (Table) 12/18/17 12/18/17 12/18/17 Range/Units 07:04 07:04 07:09 RBC 4.11 L (4.30-5.90) m/uL Hgb 10.8 L (13.0-17.5) gm/dL Hct 33.5 L (39.0-53.0) % Glucose 141 H (74-99) mg/dL POC Glucose (mg/dL) 140 H (75-99) mg/dL 12/18/17 12/18/17 12/18/17 Range/Units 11:39 17:25 20:55 RBC (4.30-5.90) m/uL Hgb (13.0-17.5) gm/dL Hct (39.0-53.0) % Glucose (74-99) mg/dL POC Glucose (mg/dL) 232 H 176 H 251 H (75-99) mg/dL Microbiology - Last 24 Hours (Table) 12/15/17 08:45 Blood Culture - Preliminary Blood No Growth after 72 hours 12/15/17 08:14 Blood Culture - Preliminary Blood No Growth after 72 hours 12/15/17 04:42 Blood Culture - Preliminary Blood No Growth after 72 hours Laboratory Results WBC 7.9 k/uL (3.8-10.6) 12/18/17 07:04 RBC 4.11 m/uL (4.30-5.90) L 12/18/17 07:04 Hgb 10.8 gm/dL (13.0-17.5) L 12/18/17 07:04 Hct 33.5 % (39.0-53.0) L 12/18/17 07:04 MCV 81.6 fL (80.0-100.0) 12/18/17 07:04 MCH 26.4 pg (25.0-35.0) 12/18/17 07:04 MCHC 32.3 g/dL (31.0-37.0) 12/18/17 07:04 RDW 15.0 % (11.5-15.5) 12/18/17 07:04 Plt Count 376 k/uL (150-450) 12/18/17 07:04 Neutrophils % 67 % 12/18/17 07:04 Lymphocytes % 18 % 12/18/17 07:04 Monocytes % 8 % 12/18/17 07:04 Eosinophils % 4 % 12/18/17 07:04 Basophils % 1 % 12/18/17 07:04 Neutrophils # 5.3 k/uL (1.3-7.7) 12/18/17 07:04 Lymphocytes # 1.4 k/uL (1.0-4.8) 12/18/17 07:04 Monocytes # 0.6 k/uL (0-1.0) 12/18/17 07:04 Eosinophils # 0.4 k/uL (0-0.7) 12/18/17 07:04 Basophils # 0.1 k/uL (0-0.2) 12/18/17 07:04 Hypochromasia Slight 12/17/17 08:02 Sodium 139 mmol/L (137-145) 12/18/17 07:04 Potassium 4.7 mmol/L (3.5-5.1) 12/18/17 07:04 Chloride 103 mmol/L (98-107) 12/18/17 07:04 Carbon Dioxide 27 mmol/L (22-30) 12/18/17 07:04 Anion Gap 9 mmol/L 12/18/17 07:04 BUN 10 mg/dL (9-20) 12/18/17 07:04 Creatinine 0.67 mg/dL (0.66-1.25) 12/18/17 07:04 Est GFR (CKD-EPI)AfAm >90 (>60 ml/min/1.73 sqM) 12/18/17 07:04 Est GFR (CKD-EPI)NonAf >90 (>60 ml/min/1.73 sqM) 12/18/17 07:04 Glucose 141 mg/dL (74-99) H 12/18/17 07:04 POC Glucose (mg/dL) 251 mg/dL (75-99) H 12/18/17 20:55 POC Glu Director Of Tax Services LAURIE Leonora Merida 12/18/17 20:[address] Glu mg/dL 174 12/15/17 12:55 Hemoglobin A1c 7.7 % (4.0-6.0) H 12/15/17 12:55 Plasma Lactic Acid Ron 1.4 mmol/L (0.7-2.0) 12/15/17 12:55 Calcium 9.2 mg/dL (8.4-10.2) 12/18/17 07:04 Phosphorus 4.1 mg/dL (2.5-4.5) 12/18/17 07:04 Magnesium 1.9 mg/dL (1.6-2.3) 12/18/17 07:04 C-Reactive Protein 36.5 mg/L (<10.0) H 12/15/17 01:40 Urine Color Yellow 12/15/17 18:45 Urine Appearance Clear (Clear) 12/15/17 18:45 Urine pH 5.5 (5.0-8.0) 12/15/17 18:45 Ur Specific [place] 1.020 (1.001-1.035) 12/15/17 18:45 Urine Protein 1+ (Negative) H 12/15/17 18:45 Urine Glucose (UA) 1+ (Negative) H 12/15/17 18:45 Urine Ketones Negative (Negative) 12/15/17 18:45 Urine Blood Negative (Negative) 12/15/17 18:45 Urine Nitrite Negative (Negative) 12/15/17 18:45 Urine Bilirubin Negative (Negative) 12/15/17 18:45 Urine Urobilinogen <2.0 mg/dL (<2.0) 12/15/17 18:45 Ur Leukocyte Esterase Negative (Negative) 12/15/17 18:45 Urine RBC 1 /hpf (0-5) 12/15/17 18:45 Urine WBC 4 /hpf (0-5) 12/15/17 18:45 Amorphous Sediment Rare /hpf (None) H 12/15/17 18:45 Hyaline Casts 13 /lpf (0-2) H 12/15/17 18:45 Urine Mucus Occasional /hpf (None) H 12/15/17 18:45 Microbiology 12/15/17 08:45 Blood Blood Culture - Preliminary No Growth after 72 hours 12/15/17 08:14 Blood Blood Culture - Preliminary No Growth after 72 hours 12/15/17 04:42 Blood Blood Culture - Preliminary No Growth after 72 hours 12/15/17 18:14 Urine,Clean Catch Urine Culture - Final Assessment and Plan (1) Acute hypotension Current Visit: Yes Status: Acute Code(s): I95.9 - HYPOTENSION, UNSPECIFIED SNOMED Code(s): 64479775 (2) Poorly controlled type 2 diabetes mellitus with complication Current Visit: Yes Status: Chronic Code(s): E11.8 - TYPE 2 DIABETES MELLITUS WITH UNSPECIFIED COMPLICATIONS; E11.65 - TYPE 2 DIABETES MELLITUS WITH HYPERGLYCEMIA SNOMED Code(s): 79155883 (3) Charcot ankle Current Visit: No Status: Chronic Code(s): M14.679 - CHARCOT'S JOINT, UNSPECIFIED ANKLE AND FOOT SNOMED Code(s): 195355339 (4) Cellulitis of left ankle Narrative/Plan: 52-year-old male presents to Hospital from home after the visiting nurse evaluated and had concerns continue erythema to the posterior aspect of the left ankle where he has the open ulcerations from his surgery for the Charcot ankle MSSA infection. With his history of profound sepsis he was admitted for further evaluation. It appears after his first dose of vancomycin therapy he had an acute reaction and became hypotensive and acutely ill. He is now rapidly recovering and feels considerably better. He's had no significant fever, chills or rigors. He is not having severe leukocytosis and does not feel ill as he did when the ankle was grossly infected. He does have some neuropathy and is not having much pain. The area posterior ankle is mild concern since there is some minimal color change in the area. Consequently antibiotics are being given for now and as cultures become available we'll then be able to construct the next plan. Local wound care was of medical honey changed on a daily basis to the open ulcerations. Limb should be elevated while he is at rest. His anemia is improving. His acute renal failure for his last stay has completely resolved and has not recurred. Hemoglobin A1c is down to 7.7 from is 9.9 months ago showing a marked improvement of his glucose control which she is continue to strive to improve. His BMI is down to 40. 12/17/2017 patient is having further improvement today. Out of intensive care unit. Feeling better. Cellulitis is improving. It is still awaiting cultures and follow-up with the foot and ankle specialist regarding the MRI and if there is any true progression. Patient is stable without fevers chills rigors or leukocytosis. Does not appear to have sepsis and overall is improved from 1 month ago. 12/18/2017 patient has had further improvement. He developed cellulitis to the posterior aspect of the ankle which has not responded well to current antibiotic therapy. As he gets ready for discharge to home we'll transition the Ancef to daptomycin to complete his course of therapy. He will follow the office in the next 2 weeks. He will be seen with orthopedics in the outpatient setting and a [place] Walker will be devised in the future. The patient is aware that the Charcot foot and ankle resulted in the complete destruction of this area. And he is a very poor surgical candidate for any interventions in the future. If with a [place] Walker he does well he could sustain this for quite some time. If however he does not do well with this type device and he continues to have worsening quality of life, there is the potential that he could undergo a [id number] amputation and be fitted for a prosthesis which could markedly improve his mobility. 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 Current Visit: Yes Status: Acute Code(s): L03.116 - CELLULITIS OF LEFT LOWER LIMB SNOMED Code(s): 18909251
[2017-12-18 23:28] VITALS: RESP 18
[2017-12-19] MEDS: HYDROcodone/APAP 5-325MG 1 EACH TAB PO PRN ×2 (06:23→14:26)
[2017-12-19] MEDS: LEVOTHYROXINE 75 MCG TAB PO SCH (06:47)
[2017-12-19] MEDS: SODIUM CHLORIDE 0.9% 1,000 ML IV SCH ×2 (06:49→15:11)
[2017-12-19 07:16] LABS: Glucose,Whole Blood 143 mg/dL (75-99)
[2017-12-19] MEDS: PIPERACILLIN-TAZOBACTAM 3.375 GM in DEXTROSE/WATER 1 50ML.BAG IVPB SCH (07:40)
[2017-12-19] MEDS: HEPARIN SODIUM,PORCINE 5,000 UNIT/ML 1 ML VIAL SQ SCH (07:40)
[2017-12-19] MEDS: INSULIN ASPART 100 UNIT/ML 1 ML 10 ML VIAL SQ SCH ×2 (07:40→12:07)
[2017-12-19] MEDS: PANTOPRAZOLE 40 MG TABLET PO SCH (07:41)
[2017-12-19] MEDS: PREGABALIN 100 MG CAP PO SCH (07:41)
[2017-12-19] MEDS: GABAPENTIN 300 MG CAP PO SCH (07:41)
--- NOTE | 2017-12-19 08:46 | P.PN ---
Subjective Progress Note Date: 12/19/17 Principal diagnosis: Sepsis. Left foot infection. Patient is a very pleasant 52-year-old male who is seen and examined in the ICU for further evaluation of cellulitis of the left foot and ankle. Patient is well known to our service and has previously under gone irrigation and excisional debridement with placement of wound VAC by Dr. Mcneil in September 2017. Following surgical intervention, he was placed with a PICC line and has been receiving IV antibiotics over the past 2 months. He continues to follow with Dr. Mi in infectious disease. He states he felt he had been progressing well and has an appointment with Dr. Mi on 12/19/2017. He has a home nurse who came to see him yesterday. At that time he was experiencing some increased erythema and induration of the left medial heel. He has pain with palpation at this area. He is not currently experiencing any significant pain over his previous surgical sites. He states he presented to [facility] for further evaluation treatment. He was in the emergency department for approximately 4 hours. He was then transferred to the third floor. Shortly after being transferred, he had significant hypotension, was diaphoretic, and vomiting. A code was called. By the time the code team arrived his overall status had significantly improved. He was transferred to the ICU. Cultures are currently pending. Nursing states his systolic pressure was in the 60s the time of his hypotensive state. She states she is currently receiving 5 g of norepinephrine. He is not currently complaining of significant pain in his left ankle and foot except for the area of erythema over the left medial heel. He denies pain over the incision sites. He currently denies any other pain or discomfort in his body. His blood pressure is currently controlled. He was previously treated for sepsis at his last admission as well. The patient has stabilized. He has been transferred to the fourth floor. Vital signs are currently stable. He is sitting up in his chair and talking coherently. He has no new complaints or concerns today. Objective - Vital Signs Vital signs: Vital Signs Temp 97.5 F L 12/19/17 06:24 Pulse 81 12/19/17 06:24 Resp 18 12/19/17 06:24 BP 161/94 12/19/17 06:24 Pulse Ox 98 12/18/17 23:26 Intake & Output 12/18/17 12/19/1718 18:59 06:59 18:59 Intake Total 100 Output Total 2375 Balance -2275 Intake: Oral 100 Output: Urine 2375 Other: Voiding Method Urinal Urinal # Voids 2 0 # Bowel Movements 0 - Exam This is a pleasant 52-year-old male in no acute distress. He is alert and oriented 3. Vital signs are stable at this time. Exam of the left foot reveals the chronic wounds to the medial and lateral dorsal foot which are stable. The area of redness about the medial heel is slowly resolving. He does continue to have some induration about the medial heel. Sensation is dull secondary to neuropathy. He is able to wiggle toes and move foot and ankle slightly. Dressing is changed today. - Labs CBC & Chem 7: 12/18/17 07:04 12/18/17 07:04 Labs: Abnormal Lab Results - Last 24 Hours (Table) 12/18/17 12/18/17 12/18/17 Range/Units 07:04 07:04 11:39 RBC 4.11 L (4.30-5.90) m/uL Hgb 10.8 L (13.0-17.5) gm/dL Hct 33.5 L (39.0-53.0) % Glucose 141 H (74-99) mg/dL POC Glucose (mg/dL) 232 H (75-99) mg/dL 12/18/17 12/18/17 12/19/17 Range/Units 17:25 20:55 07:12 RBC (4.30-5.90) m/uL Hgb (13.0-17.5) gm/dL Hct (39.0-53.0) % Glucose (74-99) mg/dL POC Glucose (mg/dL) 176 H 251 H 143 H (75-99) mg/dL Microbiology - Last 24 Hours (Table) 12/15/17 04:42 Blood Culture - Preliminary Blood No Growth after 96 hours 12/15/17 08:45 Blood Culture - Preliminary Blood No Growth after 72 hours 12/15/17 08:14 Blood Culture - Preliminary Blood No Growth after 72 hours Assessment and Plan (1) Acute hypotension Current Visit: Yes Status: Acute Code(s): I95.9 - HYPOTENSION, UNSPECIFIED SNOMED Code(s): 43127912 (2) Cellulitis Current Visit: Yes Status: Acute Priority: Medium Code(s): L03.90 - CELLULITIS, UNSPECIFIED SNOMED Code(s): 260545655 (3) Cellulitis of left ankle Current Visit: Yes Status: Acute Code(s): L03.116 - CELLULITIS OF LEFT LOWER LIMB SNOMED Code(s): 40161800 (4) Morbid obesity Current Visit: Yes Status: Acute Code(s): E66.01 - MORBID (SEVERE) OBESITY DUE TO EXCESS CALORIES SNOMED Code(s): 746218474 (5) Poorly controlled type 2 diabetes mellitus with complication Current Visit: Yes Status: Chronic Code(s): E11.8 - TYPE 2 DIABETES MELLITUS WITH UNSPECIFIED COMPLICATIONS; E11.65 - TYPE 2 DIABETES MELLITUS WITH HYPERGLYCEMIA SNOMED Code(s): 67569500 (6) Diabetic foot ulcer Current Visit: No Status: Acute Code(s): E11.621 - TYPE 2 DIABETES MELLITUS WITH FOOT ULCER SNOMED Code(s): 451805397 Plan: The clinical findings are discussed the patient. He is hoping to be discharged to home today with IV antibiotics per Dr. Mi. He is to continue with daily dressing changes. We have discussed obtaining a [place] walker boot in the near future. The patient is to follow-up with Dr. Mcneil in 2 weeks.
[2017-12-19] MEDS: DAPTOmycin 750 MG in SODIUM CHLORIDE 0.9% 50 ML IVPB SCH (11:34)
[2017-12-19 11:49] LABS: Glucose,Whole Blood 208 mg/dL (75-99)
[2017-12-19 15:06] VITALS: BP 160/96; PULSE 82; TEMP 98.2
--- NOTE | 2017-12-20 08:20 | P.DS ---
Providers Date of admission: 12/15/17 02:41 Attending physician: lCover Alcala Consults: 12/15/17 02:35 Consult Physician Routine Consulting Provider: Urban Mi Consult Reason/Comments: your patient Do you want consulting provider notified?: Yes 12/15/17 06:35 Consult Physician Stat Consulting Provider: Sarthak Daniel Consult Reason/Comments: icu managment Do you want consulting provider notified?: Already Contacted 12/15/17 08:28 Consult Physician Stat Consulting Provider: Urban Mi Consult Reason/Comments: sepsis Do you want consulting provider notified?: Yes 12/15/17 09:00 Consult Physician Urgent Consulting Provider: Dre Mcneil Consult Reason/Comments: left foot wound Do you want consulting provider notified?: Yes Primary care physician: [facility] Course: This is a pleasant 49 years old female with past medical history of diabetes mellitus, GERD, Anemia, hypertension, thyroid disease, morbid obesity, 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 Patient's was transferred to [facility] and recently got discharge from [place] over the last 3 weeks and he has have visiting nurse every other day. This time presents with possible worsening left foot infection and ankle, as the visiting nurse noticed some erythematous discolorations on the medial side of the left ankle. The rest of the chart, foods including an opening wound on the medial side of the foot looks the same as per patient After admissions while the patient was taken vancomycin he was found to be hypotensive and transferred to the ICU with pressors and besides IV fluids and antibiotic treatment is been already evaluated by intensive care unit specialist promotion writer. Suspicious for possible septic shock versus vancomycin reaction/side effects. Patient was started on Zosyn and daptomycin and infection is under orthopedic team will been called. On admissions his WBC was 10.4 K patient is afebrile. Hemoglobin 11.8. Platelets 435. Creatinine 0.7 sodium 139 lactic acid 1.6. Left foot x-ray shows destructive lesions of the mid foot worsened compared to 10/11/2017 with possible osteomyelitis. Venous Doppler was negative for DVT on the left side however left groin shows prominent lymph nodes. MRI of the ankle shows neuropathic food, possible osteomyelitis, septic joint. MRI finding were discussed with the patient's by the orthopedic team. Patient showed significant improvement with antibiotic therapy for his possible left foot cellulitis. Infectious disease team recommended discharge patient on antibiotics daptomycin with a recommendation to follow-up with orthopedics in the outpatient setting for possible [place] [facility] recommended Dr. Mcneil follow-up in 2 weeks. also ID wanted to see him in 2 weeks With my cleared by ID and orthopedic for discharge Problem and management plan were discussed with the patient's Patient was found stable and can be discharged home however he needs follow-up as an outpatient Gen: patient is a AAOx3, no distress CVS: S1-S2, RRR, no murmur Lungs: B/L CTA, no wheezing Abdomen: soft, no distention, no tenderness, positive bowel sounds Extremity: no leg edema or induration Time spent more than 35 minutes Patient Condition at Discharge: Fair Plan - Discharge Summary New Discharge Prescriptions: No Action Lovastatin 40 mg PO HS Metoprolol Tartrate 25 mg PO BID Pregabalin [Lyrica] 100 mg PO TID Ramipril 10 mg PO DAILY HYDROcodone/APAP 5-325MG [[place] 5-325] 1 tab PO QID Levothyroxine Sodium [Synthroid] 150 mcg PO DAILY Ibuprofen 800 mg PO TID PRN PRN Reason: pain metFORMIN HCL 1,000 mg PO DAILY Insulin Glargine [Lantus] 50 unit SQ HS INSULIN LISPRO (humaLOG) [humaLOG] 10 units SQ TID-W/MEALS Calcium Carbonate [Tums] 500 mg PO DAILY PRN PRN Reason: Heartburn Discharge Medication List Lovastatin 40 mg PO HS 08/10/14 [History] Metoprolol Tartrate 25 mg PO BID 08/13/14 [History] Pregabalin [Lyrica] 100 mg PO TID 08/13/14 [History] HYDROcodone/APAP 5-325MG [[place] 5-325] 1 tab PO QID 10/11/17 [History] Levothyroxine Sodium [Synthroid] 150 mcg PO DAILY 10/11/17 [History] Ramipril 10 mg PO DAILY 10/11/17 [History] Calcium Carbonate [Tums] 500 mg PO DAILY PRN 12/15/17 [History] INSULIN LISPRO (humaLOG) [humaLOG] 10 units SQ TID-W/MEALS 12/15/17 [History] Ibuprofen 800 mg PO TID PRN 12/15/17 [History] Insulin Glargine [Lantus] 50 unit SQ HS 12/15/17 [History] metFORMIN HCL 1,000 mg PO DAILY 12/15/17 [History] Follow up Appointment(s)/Referral(s): Rj Haynes DO [Primary Care Provider] - 1-2 days [facility] Visiting Nurse, [NON-STAFF] - 1 Week Dre Mcneil MD [Medical Doctor] - 2 Weeks Activity/Diet/Wound Care/Special Instructions: Arabella Terrell can be contacted at
== END 2017-12-19 15:33 | disposition home health service (06) | DRG 871 ==
LOC: EC 00:14 → 3SUR 02:41 → 6ICU 06:29 → 4MS4W 12-16 21:57
PROVIDERS: ADMIT Hospitalist; ATTEND Hospitalist
DX: A41.01 Sepsis due to Methicillin susceptible Staphylococcus aureus (principal); R65.21 Severe sepsis with septic shock; Z68.41 Body mass index [BMI] 40.0-44.9, adult; M86.9 Osteomyelitis, unspecified; L03.116 Cellulitis of left lower limb; L97.329 Non-pressure chronic ulcer of left ankle with unspecified severity; M00.9 Pyogenic arthritis, unspecified; E11.65 Type 2 diabetes mellitus with hyperglycemia; E11.8 Type 2 diabetes mellitus with unspecified complications; E66.01 Morbid (severe) obesity due to excess calories; E11.42 Type 2 diabetes mellitus with diabetic polyneuropathy; E11.610 Type 2 diabetes mellitus with diabetic neuropathic arthropathy; E11.69 Type 2 diabetes mellitus with other specified complication; E11.621 Type 2 diabetes mellitus with foot ulcer; E11.628 Type 2 diabetes mellitus with other skin complications; I10 Essential (primary) hypertension; D64.9 Anemia, unspecified; K44.9 Diaphragmatic hernia without obstruction or gangrene; K21.9 Gastro-esophageal reflux disease without esophagitis; E78.00 Pure hypercholesterolemia, unspecified; E78.5 Hyperlipidemia, unspecified; E03.9 Hypothyroidism, unspecified; R59.0 Localized enlarged lymph nodes; Z86.19 Personal history of other infectious and parasitic diseases; Z84.1 Family history of disorders of kidney and ureter; Z89.411 Acquired absence of right great toe; Z83.3 Family history of diabetes mellitus; Z82.5 Family history of asthma and other chronic lower respiratory diseases; Z87.891 Personal history of nicotine dependence; Z82.49 Family history of ischemic heart disease and other diseases of the circulatory system; Z79.4 Long term (current) use of insulin; Z79.899 Other long term (current) drug therapy; Z98.52 Vasectomy status; Z90.49 Acquired absence of other specified parts of digestive tract; Z87.09 Personal history of other diseases of the respiratory system; Z79.890 Hormone replacement therapy; Z79.891 Long term (current) use of opiate analgesic; Z88.2 Allergy status to sulfonamides; Z95.828 Presence of other vascular implants and grafts; Z86.14 Personal history of Methicillin resistant Staphylococcus aureus infection
CPT/HCPCS: 36415; 71045; 80048; 81001; 83036; 83605; 83735; 84100; 85025; 86140; 87040; 87086; 99285

== ENCOUNTER → 2018-01-22 | Outpatient (CLI) | payer BC ==
[2018-01-22 13:16] LABS: Anisocytosis Slight; Basophils # (A) 0.1 k/uL (0-0.2); Basophils % (A) 1 %; Eosinophils # (A) 0.3 k/uL (0-0.7); Eosinophils % (A) 4 %; HCT 39.4 % (39.0-53.0); HGB 12.4 gm/dL (13.0-17.5); Lymphocytes # (A) 1.5 k/uL (1.0-4.8); Lymphocytes % (A) 18 %; MCH 25.7 pg (25.0-35.0); MCHC 31.3 g/dL (31.0-37.0); MCV 81.9 fL (80.0-100.0); Mean Platelet Volume 7.1; Monocytes # (A) 0.6 k/uL (0-1.0); Monocytes % (A) 7 %; Neutrophils # (A) 5.8 k/uL (1.3-7.7); Neutrophils % (A) 68 %; Platelet Count 340 k/uL (150-450); RBC 4.81 m/uL (4.30-5.90); RDW 16.1 % (11.5-15.5); WBC 8.5 k/uL (3.8-10.6)
[2018-01-22 13:27] LABS: ALT 40 U/L (21-72); AST 36 U/L (17-59); Albumin 4.4 g/dL (3.5-5.0); Alkaline Phosphatase 136 U/L (38-126); Anion Gap 9 mmol/L; Blood Urea Nitrogen 24 mg/dL (9-20); C Reactive Protein 9.7 mg/L (<10.0); Calcium 9.6 mg/dL (8.4-10.2); Carbon Dioxide 23 mmol/L (22-30); Chloride 107 mmol/L (98-107); Glucose 171 mg/dL (74-99); Potassium 5.2 mmol/L (3.5-5.1); Sodium 139 mmol/L (137-145); Total Bilirubin 0.3 mg/dL (0.2-1.3); Total Protein 7.6 g/dL (6.3-8.2)
[2018-01-22 14:08] LABS: Erythrocyte Sedimentation Rate 9 mm/hr (0-15)
== END | disposition home or self-care (01) ==
LOC: LABWHC1 12:25
PROVIDERS: ATTEND Internal Medicine Infectious Disease
DX: A41.9 Sepsis, unspecified organism (principal); L03.116 Cellulitis of left lower limb
CPT/HCPCS: 36415; 80053; 85025; 85652; 86140

== ENCOUNTER → 2018-04-08 | Outpatient (CLI) | payer BC ==
--- NOTE | 2018-04-08 15:55 | CONS ---
CONSULTATION Consultation note for sleep apnea. Addison is a very pleasant, 53-year-old male patient. Primary of Dr. Haynes. The patient is known to me. I have taken care of him in the hospital during several bouts of septic shock and ARDS. The patient is coming in today for sleep apnea evaluation and this is a sleep consultation. This patient is 53 years of age. He is known to have diabetes, hypertension, hypothyroidism, obesity and he is also known to have Charcot joints and diabetic foot infection. He has had previous right foot osteomyelitis and he has undergone big toe amputation right foot. Subsequently, he was hospitalized for an MSSA, septic shock and secondary ARDS with prolonged ventilator-dependent respiratory failure requiring intubation, mechanical ventilation, tracheostomy tube and PEG tube insertion. Following that, the patient was transferred to a alf and he was discharged home and following that, he was decannulated. He subsequently had another bout of readmission to the hospital for another septic shock. He was hypotensive and he required pressors. He was started on a combination of antibiotics and following that, he was given a PICC line for treatment of her osteomyelitis knowing that the left foot showed destructive lesions suggestive of osteomyelitis and MRI of the ankle showed neuropathic foot with osteomyelitis and septic joint. Infectious Team was consulted and the patient was given daptomycin and following that, the patient was discharged home to follow up with Orthopedic Surgery. The patient is currently walking with an ankle boot and he is being followed by Dr. Mcneil from Orthopedic Surgery and Dr. Mi from Infectious Disease and currently he is on oral antibiotics and IV antibiotics have been discontinued. As mentioned, his comorbidities include diabetes mellitus with peripheral neuropathy and Charcot joints, diabetic wounds involving the lower extremities bilaterally, obesity, hypertension, hyperlipidemia, hypothyroidism and previous hospitalization for ARDS related to septic shock. In terms of sleep apnea, during his ICU stay, the patient was noted to have increased snore, witnessed apneas and this raises suspicion for obstructive sleep apnea. Currently, he is still snoring despite being off sedative medications. He goes to bed around 10 p.m., wakes up at 4 a.m. in the morning, is averaging around 6-8 hours of sleep. His weight is up by an additional 20 pounds over the past 1 year. He is driving a car. He does not fall asleep while driving his vehicle his sleep is. Not fragmented he wakes up once in the middle of night to use the bathroom. He has restlessness in lower extremities bilaterally, wakes up gasping for air. His current Oswe[place] Score is at 12. PAST MEDICAL HISTORY: 1. Obesity. 2. Septic shock related to septic arthritis with previous history of MSSA bacteremia requiring I and D and irrigation. 3. Previous hospitalization for septic shock/ARDS secondary to left foot infection. Patient is post prolonged mechanical ventilation. Tracheostomy tube insertion removal, PEG tube insertion and removal. 4. Diabetes mellitus with diabetic peripheral neuropathy and Charcot joints. 5. Chronic wounds and ulcerations in lower extremities bilaterally. 6. Morbid obesity. 7. Hypertension. 8. Hyperlipidemia. 9. Hypothyroidism. PAST SURGICAL HISTORY: Includes incision and drainage of the left ankle, right big toe amputation, previous rhinoplasty on the nose, vasectomy, tonsillectomy, cholecystectomy. DRUG ALLERGIES: BACTRIM. OUTPATIENT MEDICATION LIST: Includes ramipril 10 q. daily, metoprolol 25 mg twice daily, Lyrica 100 mg 3 times a day, Lovastatin 40 mg p.o. daily, Lantus insulin 60 units twice a day, Mylanta, [place], Motrin 800 and Jardiance 10 mg p.o. daily, Metformin 1 g once a day and cefadroxil 500 mg p.o. twice a day. SOCIAL HISTORY: Nonsmoker, no history of alcohol or IV drugs. FAMILY HISTORY: Negative for sleep apnea. REVIEW OF SYSTEMS: A 12-point review of system was done. Positive findings are mentioned above in history of present illness. He has chronic fatigue, no altered mentation. No chest pain. No cough or sputum production. No choking no nocturia. No grinding of the teeth. No dry mouth. No anxiety or panic attacks no palpitation, no heartburn, no difficulty with memory and concentration. No anxiety, no depression. PHYSICAL EXAMINATION: BP is 156/82, pulse 81, respirations 16, temperature 98.8, saturation 96% on room air. Oswego score is 12, neck size 20, BMI is 45.5. GENERAL APPEARANCE: Calm, comfortable. Head is atraumatic, normocephalic. Mallampati class IV. LUNGS: Clear to auscultation. HEART: Sounds regular rate and rhythm. Normal S1, S2. No murmurs. ABDOMEN: Soft, nontender. No organomegaly. EXTREMITIES: No edema. No cyanosis or clubbing. The patient has a left ankle boot which he is wearing on the left lower extremity. Wound has not been a inspected. The patient has an amputation of the right big toe on the right. SKIN: The patient also has a clear tracheostomy site over the anterior neck area, PEG tube site is also clean. IMPRESSION: 1. Obstructive sleep apnea, clinically suspected based on observed snoring and witnessed apneas during witnessed hospitalization. The patient also has anatomic features to suggest obstructive sleep apnea. 2. Hypersomnia with Oswego score of 12. 3. Obesity, body mass index of 45.5. 4. Recent septic shock, related to a septic arthritis. 5. Recent methicillin-sensitive Staphylococcus aureus bacteremia related to septic arthritis, requiring I and D, and subsequent antibiotic treatment. 6. Previous history of septic shock complicated by ARDS requiring intubation and mechanical ventilation. 7. Diabetes mellitus with peripheral neuropathy and Charcot joints. 8. Morbid obesity. 9. Hypertension. 10.Hypertension. 11.Hyperlipidemia. 12.Hypothyroidism. PLAN: 1. Encourage weight loss. 2. Proceed with a screening polysomnogram to look for any significant obstructive sleep apnea. Note that while in the ICU, the patient was receiving some sedatives and pain killers which obviously have some muscle relaxation effect and may exacerbate obstructive sleep apnea. Currently, he is off these treatments and the patient was given a screening polysomnogram looking for any significant sleep breathing disorder. Will treat accordingly. CAROL / FORD: [id number] /
== END | disposition home or self-care (01) ==
LOC: SLEEP 13:31
PROVIDERS: ATTEND Internal Medicine Critical Care Medicine
DX: G47.10 Hypersomnia, unspecified (principal); R06.83 Snoring; E66.01 Morbid (severe) obesity due to excess calories; E11.42 Type 2 diabetes mellitus with diabetic polyneuropathy; E11.610 Type 2 diabetes mellitus with diabetic neuropathic arthropathy; I10 Essential (primary) hypertension; E78.5 Hyperlipidemia, unspecified; E03.9 Hypothyroidism, unspecified; Z68.42 Body mass index [BMI] 45.0-49.9, adult; Z86.19 Personal history of other infectious and parasitic diseases; Z86.14 Personal history of Methicillin resistant Staphylococcus aureus infection; Z79.4 Long term (current) use of insulin; Z79.1 Long term (current) use of non-steroidal anti-inflammatories (NSAID); Z79.2 Long term (current) use of antibiotics; Z79.891 Long term (current) use of opiate analgesic; Z79.899 Other long term (current) drug therapy; Z88.2 Allergy status to sulfonamides
CPT/HCPCS: 99211

== ENCOUNTER → 2019-02-16 | Outpatient (CLI) | payer BC ==
[2019-02-16 15:12] LABS: African American GFR (CKD) >90 (>60 ml/min/1.73 sqM); Blood Urea Nitrogen 28 mg/dL (9-20)
--- NOTE | 2019-02-16 15:46 | CT ---
CT CHEST FOR PULMONARY EMBOLISM. EXAMINATION TYPE: CT angio chest DATE OF EXAM: 02/16/2019 INDICATION: SOB CT DLP: 591.2 mGycm, Automated exposure control for dose reduction was used. CONTRAST: Patient injected with 100 mL of Isovue 370. COMPARISON: 07/02/2017 high-resolution CT chest. TECHNIQUE: CT of the chest is performed on a spiral scan at 2 mm thick sections. Study is performed with intravenous contrast timed for evaluation for pulmonary embolism. This will limit additional po rtions of the evaluation. 3-D MIP images reconstructed by the technologist are reviewed on the compu ter in the coronal and sagittal planes. FINDINGS: No persistent filling defects are evident to suggest an acute pulmonary embolism. No mediastinal or hilar adenopathy enlarged by CT criteria is evident. The ascending aorta diameter at the level of the main pulmonary artery is 4.0 cm. The main pulmonary artery diameter at the bifur cation is 3.4 cm. No right heart strain is evident. Lung windows are clear. Limited CT section through the upper abdomen are unremarkable. IMPRESSIONS: 1. No acute pulmonary embolism. 2. 4.0 cm ascending thoracic aortic aneurysm essentially stable from June 2017.
== END | disposition home or self-care (01) ==
LOC: RADCTMAIN 14:39
PROVIDERS: ATTEND Internal Medicine
DX: I71.2 Thoracic aortic aneurysm, without rupture (principal)
CPT/HCPCS: 82565; 84520; 71275; 36415; Q9967

== ENCOUNTER → 2019-03-23 | Outpatient (CLI) | payer BC ==
--- NOTE | 2019-03-23 14:27 | US ---
EXAMINATION TYPE: US venous doppler duplex LE LT DATE OF EXAM: 03/23/2019 2:07 PM COMPARISON: US CLINICAL HISTORY: i80.9 Phlebitis and thrombophlebitis. LEFT LEG SWELLING, NO KNOWN PRIOR DVT SIDE PERFORMED: Left TECHNIQUE: The lower extremity deep venous system is examined utilizing real time linear array sonog abrahan with graded compression, doppler sonography and color-flow sonography. VESSELS IMAGED: External Iliac Vein (EIV) Common Femoral Vein Deep Femoral Vein Greater Saphenous Vein * Femoral Vein Popliteal Vein Small Saphenous Vein * Proximal Calf Veins (* superficial vessels) Grayscale, color doppler, spectral doppler imaging performed of the deep veins of the left lower extr emity. There is normal flow, compressibility, vascular waveforms. The previously seen superficial i nguinal adenopathy has decreased in size with the largest lymph node measuring 0.9 cm in short axis a nd previously measuring 1.4 cm. Left Leg: Negative for DVT, left PTV not visualized due to edema Results called to Swapna at Orthopedics at time of exam IMPRESSION: No sonographic evidence of deep venous thrombosis within the left lower extremity.
[2019-03-23 15:13] LABS: ALT 38 U/L (21-72); AST 41 U/L (17-59); African American GFR (CKD) >90 (>60 ml/min/1.73 sqM); Albumin 4.5 g/dL (3.5-5.0); Alkaline Phosphatase 169 U/L (38-126); Anion Gap 11 mmol/L; Blood Urea Nitrogen 25 mg/dL (9-20); Carbon Dioxide 27 mmol/L (22-30); Chloride 104 mmol/L (98-107); Glucose 227 mg/dL (74-99); Potassium 4.8 mmol/L (3.5-5.1); Sodium 142 mmol/L (137-145); Total Bilirubin 0.4 mg/dL (0.2-1.3); Total Protein 7.5 g/dL (6.3-8.2)
[2019-03-23 15:15] LABS: HCT 44.6 % (39.0-53.0); HGB 14.9 gm/dL (13.0-17.5); MCH 29.8 pg (25.0-35.0); MCHC 33.3 g/dL (31.0-37.0); MCV 89.5 fL (80.0-100.0); Mean Platelet Volume 7.5; Platelet Count 308 k/uL (150-450); RBC 4.99 m/uL (4.30-5.90); RDW 14.5 % (11.5-15.5); WBC 12.5 k/uL (3.8-10.6)
[2019-03-23 16:02] LABS: Erythrocyte Sedimentation Rate 13 mm/hr (0-15)
== END | disposition home or self-care (01) ==
LOC: RADUSWWP 13:41
PROVIDERS: ATTEND Orthopaedic Surgery
DX: M25.572 Pain in left ankle and joints of left foot (principal); I80.9 Phlebitis and thrombophlebitis of unspecified site; E11.8 Type 2 diabetes mellitus with unspecified complications; M14.672 Charcot's joint, left ankle and foot; I10 Essential (primary) hypertension; E78.5 Hyperlipidemia, unspecified; E03.9 Hypothyroidism, unspecified; Z87.891 Personal history of nicotine dependence
CPT/HCPCS: 80053; 83520; 85027; 85652

== ENCOUNTER → 2019-07-18 | Outpatient (CLI) | payer BC ==
[2019-07-18 17:29] LABS: Albumin 4.6 g/dL (3.80-4.90); Albumin/Globulin Ratio 2.09 (1.60-3.17); Anion Gap 8.5 mmol/L (4.00-12.00); Calcium 9.7 mg/dL (8.7-10.3); Carbon Dioxide 25.5 mmol/L (21.6-31.8); Chol/HDL Ratio 4.46; Globulin 2.2 g/dL (1.6-3.3); LDL Cholesterol,Calculated 67.6 mg/dL (0.0-131.0); Non-African American GFR(CKD) 95.8 (60.0-200.0); Potassium 4.4 mmol/L (3.5-5.5); Total Bilirubin 0.3 mg/dL (0.2-1.2); Total Protein 6.8 g/dL (6.2-8.2); VLDL Calculation 29.4 mg/dL (5.00-40.00)
[2019-07-18 18:15] LABS: Urine Creatinine 150.4 mg/dL
[2019-07-18 20:21] LABS: Hemoglobin A1C 7.6 % (4.0-6.0)
== END | disposition home or self-care (01) ==
LOC: LABWHC1 10:10
PROVIDERS: ATTEND Internal Medicine Endocrinology, Diabetes & Metabolism
DX: E11.65 Type 2 diabetes mellitus with hyperglycemia (principal)
CPT/HCPCS: 36415; 80053; 80061; 82043; 82570; 83036; 84443

== ENCOUNTER → 2020-02-08 | Outpatient (CLI) | payer BC ==
[2020-02-08 08:55] LABS: African American GFR (CKD) >90 (>60 ml/min/1.73 sqM); Blood Urea Nitrogen 22 mg/dL (9-20); Non-African American GFR(CKD) >90 (>60 ml/min/1.73 sqM)
--- NOTE | 2020-02-08 09:49 | CT ---
EXAMINATION TYPE: CT angio chest DATE OF EXAM: 02/08/2020 COMPARISON: February 16, 2019 HISTORY: follow up thoracic aortic aneurysm CT DLP: 1604 mGycm CONTRAST: CTA thoracic aorta with 3-D reconstruction is performed and without and with IV Contrast, patient inj ected with 100 mL of Isovue 370. Contrast CTA of the thoracic aorta was performed from the lung apex through the upper abdomen. 3D re construction imaging obtained at a separate workstation. CT Chest: THORACIC AORTA: The thoracic aorta at its ascending component measures 3.9 cm maximal AP dimension co mpatible with ectasia. Previous measurement was approximately 4 cm AP dimension. Mild atheromatous ch anges seen. There is no evidence for dissection or periaortic collection. LUNGS: The lungs are clear and free of infiltrate or atelectasis. No pulmonary nodule or mass is det ected. No pleural effusion or CT evidence of interstitial lung disease. MEDIASTINUM: No evidence for mediastinal hematoma. The heart is not enlarged. No evidence for med iastinal mass or adenopathy. HILAR STRUCTURES: No evidence for mass. No hilar adenopathy is appreciated. OTHER: No significant abnormality. IMPRESSION- Ectasia ascending thoracic aorta
== END | disposition home or self-care (01) ==
LOC: RADCTMAIN 08:02
PROVIDERS: ATTEND Internal Medicine Cardiovascular Disease
DX: I77.810 Thoracic aortic ectasia (principal); Z88.2 Allergy status to sulfonamides
CPT/HCPCS: 82565; 84520; 71275; 36415; Q9967

== ENCOUNTER → 2020-03-21 | Outpatient (CLI) | payer BC ==
--- NOTE | 2020-03-21 16:37 | US ---
EXAMINATION TYPE: US venous doppler duplex LE RT DATE OF EXAM: 03/21/2020 4:30 PM COMPARISON: Right sided lower extremity venous ultrasound April 04, 2015 CLINICAL HISTORY: RLE M79.89 Swelling. right leg water blisters and swelling, npo h/o dvt SIDE PERFORMED: Right TECHNIQUE: The lower extremity deep venous system is examined utilizing real time linear array sonog abrahan with graded compression, doppler sonography and color-flow sonography. VESSELS IMAGED: External Iliac Vein (EIV) Common Femoral Vein Deep Femoral Vein Greater Saphenous Vein * Femoral Vein Popliteal Vein Small Saphenous Vein * Proximal Calf Veins (* superficial vessels) Right Leg: Negative for DVT Grayscale, color doppler, spectral doppler imaging performed of the deep veins of the right lower ext remity. There is normal flow, compressibility, vascular waveforms. IMPRESSION: No ultrasound evidence for acute DVT in the right lower extremity.
[2020-03-21 16:59] LABS: Basophils # (A) 0.1 k/uL (0-0.2); Basophils % (A) 1 %; Eosinophils # (A) 0.3 k/uL (0-0.7); Eosinophils % (A) 3 %; HCT 46.7 % (39.0-53.0); HGB 14.3 gm/dL (13.0-17.5); Lymphocytes # (A) 1.5 k/uL (1.0-4.8); Lymphocytes % (A) 13 %; MCHC 30.7 g/dL (31.0-37.0); MCV 87.8 fL (80.0-100.0); Mean Platelet Volume 7.7; Monocytes # (A) 0.6 k/uL (0-1.0); Monocytes % (A) 5 %; Neutrophils # (A) 9.2 k/uL (1.3-7.7); Neutrophils % (A) 78 %; Platelet Count 292 k/uL (150-450); RBC 5.31 m/uL (4.30-5.90); RDW 14.6 % (11.5-15.5); WBC 11.8 k/uL (3.8-10.6)
[2020-03-21 17:11] LABS: ALT 30 U/L (4-49); AST 37 U/L (17-59); African American GFR (CKD) >90 (>60 ml/min/1.73 sqM); Albumin 4.4 g/dL (3.5-5.0); Alkaline Phosphatase 195 U/L (38-126); Anion Gap 4 mmol/L; Blood Urea Nitrogen 21 mg/dL (9-20); C Reactive Protein 16.7 mg/L (<10.0); Calcium 9.5 mg/dL (8.4-10.2); Carbon Dioxide 32 mmol/L (22-30); Chloride 104 mmol/L (98-107); Glucose 95 mg/dL (74-99); Non-African American GFR(CKD) >90 (>60 ml/min/1.73 sqM); Potassium 4.8 mmol/L (3.5-5.1); Sodium 140 mmol/L (137-145); Total Bilirubin 0.4 mg/dL (0.2-1.3); Total Protein 7.3 g/dL (6.3-8.2)
[2020-03-21 17:34] LABS: Cholesterol 145 mg/dL (<200); HDL Cholesterol 24 mg/dL (40-60); LDL Cholesterol,Calculated 60 mg/dL (0-99); Triglycerides 303 mg/dL (<150)
[2020-03-22 01:27] LABS: Hemoglobin A1C 7.8 % (4.0-6.0)
[2020-03-22 07:31] LABS: Urine Creatinine 63.4 mg/dL
== END | disposition home or self-care (01) ==
LOC: RADUSWWP 16:04
PROVIDERS: ATTEND Internal Medicine Infectious Disease
DX: M79.89 Other specified soft tissue disorders (principal); E11.65 Type 2 diabetes mellitus with hyperglycemia
CPT/HCPCS: 80053; 80061; 82043; 82570; 83036; 84443; 85025; 86140

== ENCOUNTER → 2020-05-24 | Day surgery (SDC) | payer BC ==
[2020-05-16 15:24] VITALS: BMI 48.8
[~2020-05-24] MED LIST: LACTATED RINGERS 1,000 ML IV SCH; LIDOCAINE 1% (10MG/ML) FOR IV START INTRADERMA PRN; PROPOFOL 10 MG/ML 20 ML VIAL IV ONE
[2020-05-24 07:48] VITALS: TEMP 98.2
[2020-05-24 08:09] LABS: Glucose,Whole Blood 81 mg/dL (75-99)
--- NOTE | 2020-05-24 09:10 | P.PCN ---
Date of Procedure: 05/24/20 Description of Procedure: BRIEF HISTORY: Patient is a 55-year-old male presenting for outpatient colonoscopy for screening for malignant neoplasm of the colon. Patient denies any change in bowel habits, blood per rectum or abdominal pain. No family history of colon cancer. PROCEDURE PERFORMED: Colonoscopy with polypectomy. PREOPERATIVE DIAGNOSIS: Screening for malignant neoplasm of the colon, he does report a remote history of colonoscopy. ESTIMATED BLOOD LOSS: Minimal. IV sedation per Anesthesia. PROCEDURE: After informed consent was obtained, the patient, was brought into the endoscopy unit. IV sedation was administered by Anesthesia under continuous monitoring. Digital rectal examination was normal. Initially the Olympus CF-190 flexible video colonoscope was then inserted in the rectum, gradually advanced into the cecum without any difficulty. Careful examination was performed as the scope was gradually being withdrawn. Ileocecal valve and the appendiceal orifice were visualized and appeared normal. Prep was excellent. Mucosa of the cecum, ascending colon, transverse colon, descending colon, sigmoid colon, and rectum appeared normal. A 7 mm ascending colon polyp removed with cold snare polypectomy. 2 polyps removed from the hepatic flexure measuring 6 mm and 10 mm in size with cold snare polypectomy. Retroflexion was performed in the rectum and no lesions were seen, low-grade internal hemorrhoids. The patient tolerated the procedure well. IMPRESSION: 3 polyps removed with cold snare polypectomy 1 from the ascending colon and 2 from the hepatic flexure. Internal hemorrhoids. RECOMMENDATIONS: Findings of this examination were discussed with the patient. Okay to resume diet. Okay to resume medications. Await pathology from polypectomies. Recommend repeat colonoscopy in 3 years for high risk colon polyps.
[2020-05-24 09:23] LABS: Glucose,Whole Blood 82 mg/dL (75-99)
[2020-05-24 09:35] VITALS: BP 111/65; PULSE 65; RESP 14
== END ==
LOC: ORWHC2ENDO 07:23
PROVIDERS: ATTEND Internal Medicine
DX: Z12.11 Encounter for screening for malignant neoplasm of colon (principal); D12.2 Benign neoplasm of ascending colon; D12.3 Benign neoplasm of transverse colon; K64.8 Other hemorrhoids; I10 Essential (primary) hypertension; E78.5 Hyperlipidemia, unspecified; J44.9 Chronic obstructive pulmonary disease, unspecified; Z87.891 Personal history of nicotine dependence; G47.33 Obstructive sleep apnea (adult) (pediatric); E11.9 Type 2 diabetes mellitus without complications; E07.9 Disorder of thyroid, unspecified; K44.9 Diaphragmatic hernia without obstruction or gangrene; G25.81 Restless legs syndrome; Z91.19 Patient's noncompliance with other medical treatment and regimen; Z90.49 Acquired absence of other specified parts of digestive tract; Z98.52 Vasectomy status; Z98.890 Other specified postprocedural states; Z79.1 Long term (current) use of non-steroidal anti-inflammatories (NSAID); Z79.890 Hormone replacement therapy; Z79.4 Long term (current) use of insulin; Z79.891 Long term (current) use of opiate analgesic; Z79.899 Other long term (current) drug therapy; Z88.1 Allergy status to other antibiotic agents; Z88.2 Allergy status to sulfonamides; Z88.8 Allergy status to other drugs, medicaments and biological substances
CPT/HCPCS: 88305; 45385; J2704

== ENCOUNTER → 2021-02-06 | Outpatient (CLI) | payer BC ==
[2021-02-06 15:30] LABS: African American GFR (CKD) >90 (>60 ml/min/1.73 sqM); Blood Urea Nitrogen 21 mg/dL (9-20); Non-African American GFR(CKD) 80 (>60 ml/min/1.73 sqM)
--- NOTE | 2021-02-07 07:02 | CT ---
EXAMINATION TYPE: CT angio chest DATE OF EXAM: 02/06/2021 4:38 PM COMPARISON: CTA chest February 08, 2020 and older studies. HISTORY: Thoracic aortic aneurysm, without rupture CT DLP: 1169.7 mGycm Automated exposure control for dose reduction was used. CONTRAST: CTA scan of the thorax is performed with IV Contrast, patient injected with 80 mL of Isovue 370, [facility] protocol. 3D reconstructed images are created on an independent workstation and reviewed.. FINDINGS: LUNGS: Stable dependent atelectasis in the right lower lobe. Low lung volumes and elevated right kisha diaphragm with right basilar compressive atelectasis redemonstrated. Left lung shows new or more prom inent peripheral mild to moderate linear scarring and/or atelectasis. There is no pleural effusion o r pneumothorax seen bilaterally. The tracheobronchial tree is patent. MEDIASTINUM: There is suboptimal bolus or contrast opacification. Prominent main pulmonary artery of 3.4 cm axial image 30. Adjacent ascending aorta measures up to 3.8 cm in diameter. Three-vessel origi n from aortic arch. There are no greater than 1 cm hilar or mediastinal lymph nodes. No pericardial effusion is seen. Heart size stable and upper limits of normal. Coronary artery calcification redemo nstrated. OTHER: Liver remains diffusely low dense consistent with diffuse fatty infiltration. Slight scolioti c curvature of the spine on coronal images again seen. Bilateral subareolar gynecomastia is redemonst rated. IMPRESSION: Accounting for technical differences borderline 3.8 to 4.0 cm ascending aortic aneurysm u nchanged from prior study.
== END | disposition home or self-care (01) ==
LOC: RADCTMAIN 14:34
PROVIDERS: ATTEND Thoracic Surgery (Cardiothoracic Vascular Surgery)
DX: I71.2 Thoracic aortic aneurysm, without rupture (principal)
CPT/HCPCS: 82565; 84520; 71275; 36415; Q9967

== ENCOUNTER → 2021-05-19 | Outpatient (CLI) | payer BC ==
[2021-05-19 13:38] LABS: Appearance,Urine Clear (Clear); Bilirubin,Urine Negative (Negative); Blood,Urine Negative (Negative); Color,Urine Yellow; Glucose,Urine (UA) 4+ (Negative); Ketones,Urine Negative (Negative); Leukocyte Esterase,Urine Negative (Negative); Mucus,Urine Rare /hpf; Nitrite,Urine Negative (Negative); PH, Urine 5.5 (5.0-8.0); Protein,Urine 1+ (Negative); RBC,Urine 1 /hpf (0-5); Specific Gravity,Urine 1.035 (1.001-1.035); Urobilinogen,Urine <2.0 mg/dL (<2.0); WBC,Urine 1 /hpf (0-5)
[2021-05-19 20:32] LABS: ALT 27 U/L (10-49); AST 30 U/L (14-35); African American GFR (CKD) 84.1 (60.0-200.0); Albumin 4.5 g/dL (3.8-4.9); Albumin/Globulin Ratio 1.57 (1.60-3.17); Alkaline Phosphatase 211 U/L (41-126); BUN/Creat Ratio 25.54 Ratio (12.00-20.00); Blood Urea Nitrogen 28.6 mg/dL (9.0-27.0); Calcium 9.5 mg/dL (8.7-10.3); Carbon Dioxide 24.5 mmol/L (20.0-27.5); Chloride 103 mmol/L (96-109); Globulin 2.9 g/dL (1.6-3.3); Glucose 140 mg/dL (70-110); LDL Cholesterol,Calculated 88.9 mg/dL (0.0-131.0); Non-African American GFR(CKD) 72.5 (60.0-200.0); Potassium 5.2 mmol/L (3.5-5.5); Sodium 142 mmol/L (135-145); Total Protein 7.4 g/dL (6.2-8.2)
== END | disposition home or self-care (01) ==
LOC: LABWHC1 12:24
PROVIDERS: ATTEND Internal Medicine Endocrinology, Diabetes & Metabolism
DX: E11.65 Type 2 diabetes mellitus with hyperglycemia (principal); E03.8 Other specified hypothyroidism
CPT/HCPCS: 36415; 80053; 80061; 81001; 82043; 82570; 83036; 84153; 84443

== ENCOUNTER → 2021-06-09 | Outpatient (CLI) | payer BC ==
[2021-06-10] LABS: Basophils # (A) 0.07 X 10*3/uL (0.00-0.10); Basophils % (A) 0.5 %; Eosinophils # (A) 0.21 X 10*3/uL (0.04-0.35); Eosinophils % (A) 1.6 %; HCT 41.2 % (39.6-50.0); HGB 12.6 g/dL (13.0-17.0); Lymphocytes # (A) 1.58 X 10*3/uL (0.90-5.00); MCH 27.6 pg (27.0-32.0); MCHC 30.6 g/dL (32.0-37.0); MCV 90.4 fL (80.0-97.0); Mean Platelet Volume 11.3 fL (9.5-12.2); Monocytes # (A) 1.12 X 10*3/uL (0.20-1.00); Monocytes % (A) 8.5 %; Neutrophils # (A) 9.99 X 10*3/uL (1.80-7.70); Neutrophils % (A) 75.7 %; Platelet Count 305 X 10*3/uL (140-440); RBC 4.56 X 10*6/uL (4.40-5.60); RDW 15.6 % (11.5-14.5)
[2021-06-10 05:18] LABS: Erythrocyte Sedimentation Rate 20 mm/Hr (0-20)
== END | disposition home or self-care (01) ==
LOC: LABWHC1 15:28
PROVIDERS: ATTEND Orthopaedic Surgery
DX: M25.571 Pain in right ankle and joints of right foot (principal); M19.071 Primary osteoarthritis, right ankle and foot; M21.071 Valgus deformity, not elsewhere classified, right ankle; E11.40 Type 2 diabetes mellitus with diabetic neuropathy, unspecified
CPT/HCPCS: 36415; 85025; 85652; 86140

== ENCOUNTER 2021-09-04 06:04 | Inpatient (IN) | payer BC ==
[2021-09-04] MEDS ORDERED: ACETAMINOPHEN TAB 500 MG TAB PO STA (06:23)
[2021-09-04] MEDS ORDERED: SODIUM CHLORIDE 0.9% 1,000 ML IV STA (06:23)
[2021-09-04] MEDS ORDERED: ONDANSETRON 4 MG/2 ML VIAL IVP STA (06:25)
--- NOTE | 2021-09-04 06:26 | ED ---
Fever HPI - General Chief Complaint: Fever Stated Complaint: Fever Time Seen by Provider: 09/04/21 06:06 Source: patient, EMS Mode of arrival: EMS Limitations: no limitations - History of Present Illness Initial Comments: 56-year-old male presented to emergency department via EMS chief complaint of not feeling well. Patient states he woke up she states she started vomiting. Patient found to be febrile. He does admit that he has some wounds on his right foot. Patient states he has long history of foot infections he is known diabetic. Patient states that they have discuss amputation of his right foot. Patient states that he has not discussed with his primary care physician about his foot infection is on no medications currently for infection. Patient denies any abdominal pain no chest pain or shortness breath no cough or URI symptoms. - Related Data Home Medications Medication Instructions Recorded Confirmed Lovastatin 40 mg PO HS 08/10/14 09/04/21 Metoprolol Tartrate 25 mg PO BID 08/13/14 09/04/21 Empagliflozin [Jardiance] 10 mg PO QAM 01/29/19 09/04/21 Escitalopram [Lexapro] 10 mg PO DAILY 01/29/19 09/04/21 Ibuprofen 800 mg PO TID 01/29/19 09/04/21 cloNIDine HCL [Catapres] 0.1 mg PO BID 01/29/19 09/04/21 rOPINIRole HCL [Requip] 1 mg PO TID 01/29/19 09/04/21 Albuterol Nebulized [Ventolin 2.5 mg INHALATION RT-Q4H PRN 05/16/20 09/04/21 Nebulized] Albuterol Sulfate [Proair Hfa] 1 - 2 puff INHALATION RT-Q6H PRN 05/16/20 09/04/21 Fluticasone/Umeclidin/Vilanter 1 inhalation INHALATION BID 05/16/20 09/04/21 [Trelegy Ellipta 100-62.5-25] HYDROcodone/APAP 7.5-325MG [[place] 1 tab PO QID 05/16/20 09/04/21 7.5-325] Levothyroxine Sodium [Synthroid] 175 mcg PO DAILY 05/16/20 09/04/21 Losartan [Cozaar] 50 mg PO QAM 05/16/20 09/04/21 Omeprazole 40 mg PO DAILY 05/16/20 09/04/21 Insulin Glargine,Hum.rec.anlog 100 units SQ BID 09/04/21 09/04/21 [Afshan Mensahostar] Insulin Lispro [humaLOG Kwikpen] 60 unit SQ AC-TID 09/04/21 09/04/21 Insulin Lispro [humaLOG Kwikpen] See Protocol SQ AC-TID 09/04/21 09/04/21 Pregabalin [Lyrica] 100 mg PO TID 09/04/21 09/04/21 Semaglutide [Rybelsus] 7 mg PO DAILY 09/04/21 09/04/21 metFORMIN HCL [Glucophage] 1,000 mg PO DAILY 09/04/21 09/04/21 Allergies Allergy/AdvReac Type Severity Reaction Status Date / Time ramipril AdvReac Severe Cough Verified 09/04/21 09:15 sulfamethoxazole AdvReac Severe Nausea, Verified 09/04/21 09:15 [From Bactrim] Dizziness, Headaches trimethoprim [From Bactrim] AdvReac Severe Nausea, Verified 09/04/21 09:15 Dizziness, Headaches vancomycin AdvReac Septic Verified 09/04/21 09:15 Shock Review of Systems ROS Statement: Those systems with pertinent positive or pertinent negative responses have been documented in the HPI. ROS Other: All systems not noted in ROS Statement are negative. 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 No CPAP use. Restless Leg Syndrome. SOB. Uses scooter if going long distances. Cellulitis left leg. Hx back fracture 2008, wore brace. History of Any Multi-Drug Resistant Organisms: MRSA Date of last positivie culture/infection: 07/2014 MDRO Source:: RT FOOT Past Surgical History: Cholecystectomy, Ear Surgery, Hernia Repair, Orthopedic S urgery, Tonsillectomy Additional Past Surgical History / Comment(s): MULTIPLE I&D LEFT FOOT, vasectomy, rhinoplasty, tendon surgery right wrist, amputation of right great toe and left foot, tubes in ears as a child. Past Anesthesia/Blood Transfusion Reactions: No Reported Reaction Additional Past Anesthesia/Blood Transfusion Reaction / Comment(s): Slow to wake up X1. Past Psychological History: Anxiety, Depression Smoking Status: Former smoker Past Alcohol Use History: Rare Past Drug Use History: None Reported - Past Family History Brother(s) Family Medical History: Deep Vein Thrombosis (DVT) Father Family Medical History: Coronary Artery Disease (CAD), Diabetes Mellitus, Renal Disease Mother Family Medical History: COPD, Diabetes Mellitus General Exam General appearance: alert, in no apparent distress Head exam: Present: atraumatic, normocephalic, normal inspection Eye exam: Present: normal appearance, PERRL, EOMI. Absent: scleral icterus, conjunctival injection, periorbital swelling ENT exam: Present: normal exam, normal oropharynx, mucous membranes moist Neck exam: Present: normal inspection, full ROM. Absent: tenderness, meningismus, lymphadenopathy Respiratory exam: Present: normal lung sounds bilaterally. Absent: respiratory distress, wheezes, rales, rhonchi, stridor Cardiovascular Exam: Present: normal rhythm, tachycardia, normal heart sounds. Absent: systolic murmur, diastolic murmur, rubs, gallop, clicks GI/Abdominal exam: Present: soft, normal bowel sounds. Absent: distended, tenderness, guarding, rebound, rigid Extremities exam: Present: other (Left BKA noted, no open lesions or sores, right lower extremity chronic deformity old surgical scars noted, lateral foot ankle wounds noted, erythematous to mid cruz) Neurological exam: Present: alert, oriented X3 Skin exam: Present: warm, dry, intact, normal color. Absent: rash Course Vital Signs 09/04/21 09/04/21 09/04/21 06:08 07:26 08:00 Temperature 103.2 F H 102.2 F H Pulse Rate 106 H 92 92 Respiratory 22 18 18 Rate Blood Pressure 144/49 99/58 87/43 O2 Sat by Pulse 95 97 94 L Oximetry 09/04/21 09/04/21 09/04/21 08:15 08:54 09:19 Temperature 99.8 F H Pulse Rate 87 89 83 Respiratory 18 18 18 Rate Blood Pressure 98/45 82/32 88/44 O2 Sat by Pulse 94 L 87 L 96 Oximetry Medical Decision Making - Medical Decision Making Fluid bolus ordered. Patient's ideal body weight of 83.5 kg 56-year-old presented for fever, not feeling well. Patient has diabetic foot ulcer on the right, concerning for osteomyelitis type changes. Patient does have significant leukocytosis, lactic acidosis. Patient's given fluid bolus, [rectum antibodies, blood culture. Patient will be admitted for further treatment and evaluation. - Lab Data Result diagrams: 09/04/21 06:10 09/04/21 06:10 Lab Results 09/04/21 09/04/21 09/04/21 Range/Units 06:10 06:10 06:10 WBC 18.7 H (3.8-10.6) k/uL RBC 4.51 (4.30-5.90) m/uL Hgb 12.4 L (13.0-17.5) gm/dL Hct 39.4 (39.0-53.0) % MCV 87.3 (80.0-100.0) fL MCH 27.5 (25.0-35.0) pg MCHC 31.5 (31.0-37.0) g/dL RDW 14.7 (11.5-15.5) % Plt Count 343 (150-450) k/uL MPV 7.8 Neutrophils % 91 % Lymphocytes % 3 % Monocytes % 3 % Eosinophils % 2 % Basophils % 0 % Neutrophils # 17.1 H (1.3-7.7) k/uL Lymphocytes # 0.5 L (1.0-4.8) k/uL Monocytes # 0.6 (0-1.0) k/uL Eosinophils # 0.3 (0-0.7) k/uL Basophils # 0.1 (0-0.2) k/uL Sodium 140 (137-145) mmol/L Potassium 4.6 (3.5-5.1) mmol/L Chloride 106 (98-107) mmol/L Carbon Dioxide 27 (22-30) mmol/L Anion Gap 7 mmol/L BUN 22 H (9-20) mg/dL Creatinine 1.32 H (0.66-1.25) mg/dL Est GFR (CKD-EPI)AfAm 69 (>60 ml/min/1.73 sqM) Est GFR (CKD-EPI)NonAf 60 (>60 ml/min/1.73 sqM) Glucose 67 L (74-99) mg/dL Plasma Lactic Acid Ron 2.1 H* (0.7-2.0) mmol/L Calcium 8.8 (8.4-10.2) mg/dL Total Bilirubin 0.6 (0.2-1.3) mg/dL AST 33 (17-59) U/L ALT 22 (4-49) U/L Alkaline Phosphatase 171 H (38-126) U/L Total Protein 7.6 (6.3-8.2) g/dL Albumin 4.1 (3.5-5.0) g/dL Coronavirus (PCR) (Not Detectd) Influenza Type A RNA (Not Detectd) Influenza Type B (PCR) (Not Detectd) 09/04/21 09/04/21 Range/Units 07:25 07:25 WBC (3.8-10.6) k/uL RBC (4.30-5.90) m/uL Hgb (13.0-17.5) gm/dL Hct (39.0-53.0) % MCV (80.0-100.0) fL MCH (25.0-35.0) pg MCHC (31.0-37.0) g/dL RDW (11.5-15.5) % Plt Count (150-450) k/uL MPV Neutrophils % % Lymphocytes % % Monocytes % % Eosinophils % % Basophils % % Neutrophils # (1.3-7.7) k/uL Lymphocytes # (1.0-4.8) k/uL Monocytes # (0-1.0) k/uL Eosinophils # (0-0.7) k/uL Basophils # (0-0.2) k/uL Sodium (137-145) mmol/L Potassium (3.5-5.1) mmol/L Chloride (98-107) mmol/L Carbon Dioxide (22-30) mmol/L Anion Gap mmol/L BUN (9-20) mg/dL Creatinine (0.66-1.25) mg/dL Est GFR (CKD-EPI)AfAm (>60 ml/min/1.73 sqM) Est GFR (CKD-EPI)NonAf (>60 ml/min/1.73 sqM) Glucose (74-99) mg/dL Plasma Lactic Acid Ron (0.7-2.0) mmol/L Calcium (8.4-10.2) mg/dL Total Bilirubin (0.2-1.3) mg/dL AST (17-59) U/L ALT (4-49) U/L Alkaline Phosphatase (38-126) U/L Total Protein (6.3-8.2) g/dL Albumin (3.5-5.0) g/dL Coronavirus (PCR) Not Detected (Not Detectd) Influenza Type A RNA Not Detected (Not Detectd) Influenza Type B (PCR) Not Detected (Not Detectd) Critical Care Time Critical Care Time: Yes Total Critical Care Time: 35 Disposition Clinical Impression: Diabetic ulcer of right foot, Osteomyelitis, Sepsis Disposition: ADMITTED IP TO THIS [facility] Condition: Poor Referrals: Rj Haynes DO [Primary Care Provider] - 1-2 days
[2021-09-04 06:35] LABS: Basophils # (A) 0.1 k/uL (0-0.2); Basophils % (A) 0 %; Eosinophils # (A) 0.3 k/uL (0-0.7); Eosinophils % (A) 2 %; HCT 39.4 % (39.0-53.0); HGB 12.4 gm/dL (13.0-17.5); Lymphocytes # (A) 0.5 k/uL (1.0-4.8); Lymphocytes % (A) 3 %; MCH 27.5 pg (25.0-35.0); MCHC 31.5 g/dL (31.0-37.0); MCV 87.3 fL (80.0-100.0); Mean Platelet Volume 7.8; Monocytes # (A) 0.6 k/uL (0-1.0); Monocytes % (A) 3 %; Neutrophils # (A) 17.1 k/uL (1.3-7.7); Neutrophils % (A) 91 %; Platelet Count 343 k/uL (150-450); RBC 4.51 m/uL (4.30-5.90); RDW 14.7 % (11.5-15.5); WBC 18.7 k/uL (3.8-10.6)
[2021-09-04 06:50] LABS: Albumin 4.1 g/dL (3.5-5.0); Calcium 8.8 mg/dL (8.4-10.2); Potassium 4.6 mmol/L (3.5-5.1); Total Bilirubin 0.6 mg/dL (0.2-1.3); Total Protein 7.6 g/dL (6.3-8.2)
--- NOTE | 2021-09-04 06:54 | XR ---
EXAMINATION TYPE: XR foot limited RT DATE OF EXAM: 09/04/2021 CLINICAL HISTORY: Swelling and redness. TECHNIQUE: Frontal and lateral images of the right foot are obtained. COMPARISON: Prior right foot x-ray August 14, 2014 FINDINGS: There is severe soft tissue swelling over the visualized right ankle and foot. There is par tial visualization of sclerosis and deformity distal tibia and fibula suspect old infection or injury . Posterior heterotopic ossification is present. There is sclerosis and deformity to the talus. Similar consider old infection and/or trauma. Amputation defect first toe is present. Loss of distal one quarter portion fourth metatarsal. Scleros is of the metatarsals with bridging bone between second and third metatarsals. Consider old infection and/or trauma. Nonspecific poorly visualized base of second through fifth proximal phalanxes could reflect product o f acute infection in appropriate setting, correlate clinically. Navicular bone is sclerotic. There is subluxation at the talonavicular articulation. A component of C harcot-type arthropathy is suspected. IMPRESSION: As above.
--- NOTE | 2021-09-04 07:35 | XR ---
EXAMINATION TYPE: XR chest 1V portable DATE OF EXAM: 09/04/2021 COMPARISON: 11/25/2019 HISTORY: Fever TECHNIQUE: Single view FINDINGS: There is some interstitial infiltrate and atelectasis at both lung bases. Heart appears sli ghtly enlarged. Bony thorax is intact. Trachea is midline. IMPRESSION: There is some infiltrate and atelectasis at the lung bases which is mostly new compared t o old EXAM. No obvious heart failure.
[2021-09-04] MEDS ORDERED: SODIUM CHLORIDE 0.9% 1,000 ML IV ONE (07:57)
[2021-09-04] MEDS ORDERED: IBUPROFEN 600 MG TAB PO STA (07:57)
[2021-09-04] MEDS ORDERED: SODIUM CHLORIDE 0.9% 500 ML 500 ML IV ONE ×2 (07:57→08:45)
[2021-09-04] MEDS ORDERED: PIPERACILLIN-TAZOBACTAM 3.375 GM in SODIUM CHLORIDE 0.9% 100 ML IVPB STA (07:59)
[2021-09-04] MEDS: SODIUM CHLORIDE 0.9% 1,000 ML IV SCH ×3 (09:15→23:12)
[2021-09-04] MEDS ORDERED: ONDANSETRON 4 MG/2 ML VIAL IVP PRN (09:50)
[2021-09-04] MEDS ORDERED: NALOXONE 0.4 MG/ML 1 ML VIAL IV PRN (09:50)
[2021-09-04] MEDS ORDERED: ACETAMINOPHEN TAB 325 MG TAB PO PRN ×2 (09:50→21:01)
[2021-09-04] MEDS ORDERED: ALBUTEROL NEBULIZED 2.5 MG/3 ML INHALATION PRN (09:51)
[2021-09-04] MEDS ORDERED: INSULIN LISPRO SQ SCH (12:30)
[2021-09-04] MEDS: INSULIN ASPART (NovoLOG) 100 UNIT/ML VIAL SQ SCH ×4 (12:59→17:54)
[2021-09-04 13:03] LABS: Glucose,Whole Blood 44 mg/dL (75-99)
[2021-09-04 13:30] LABS: Glucose,Whole Blood 48 mg/dL (75-99)
[2021-09-04 13:47] LABS: Glucose,Whole Blood 68 mg/dL (75-99)
[2021-09-04 14:01] LABS: Glucose,Whole Blood 111 mg/dL (75-99)
[2021-09-04] MEDS: HYDROcodone/APAP 5-325MG 1 EACH TAB PO PRN (14:17)
[2021-09-04] MEDS: HYDROcodone/APAP 7.5-325MG 1 EACH TAB PO SCH ×3 (14:19→23:12)
[2021-09-04 15:01] LABS: Glucose,Whole Blood 186 mg/dL (75-99)
[2021-09-04] MEDS: PREGABALIN 100 MG CAP PO SCH ×2 (15:10→21:52)
[2021-09-04] MEDS: IPRATROPIUM 0.5 MG/2.5 ML NEBU INHALATION SCH ×2 (16:01→19:13)
[2021-09-04] MEDS: PIPERACILLIN-TAZOBACTAM 3.375 GM in SODIUM CHLORIDE 0.9% 100 ML IVPB SCH ×2 (17:46→23:12)
[2021-09-04 17:48] LABS: Glucose,Whole Blood 176 mg/dL (75-99)
[2021-09-04] MEDS: SYMBICORT 80-4.5 MCG INHALER INHALATION SCH (19:13)
--- NOTE | 2021-09-04 19:59 | CT ---
EXAMINATION TYPE: CT foot RT wo con DATE OF EXAM: 09/04/2021 COMPARISON: None HISTORY: right ankle pain/cellulitis CT DLP: 160.1 mGycm Automated exposure control for dose reduction was used. Images obtained from the mid tibia to the bottom of the foot without contrast. There is extensive destructive changes involving the talus and the calcaneus. There is old ununited f racture of the distal shaft of the fibula. There is mixed attenuation material in the joint spaces of the subtalar joint and ankle joint. There is subcutaneous edema around the lower leg including the a nkle and hindfoot. There is soft tissue calcification around the ununited fibular fracture. The mid t arsal bones appear anatomic. There is a complex mass posterior to the distal tibia best seen on the sagittal images with mixed att enuation. IMPRESSION: Extensive destructive changes involving the entire talus with mixed attenuation and is consistent wit h debris and bone fragments in the hindfoot. This is suggestive of advanced neuropathic arthropathy a nd osteomyelitis should be highly considered as well. Old ununited fibular fracture. Subcutaneous density consistent with cellulitis. There is a complex mass posterior to the distal tibia measuring 17 x 8 cm that contains fluid and debby cification and an abscess should be considered..
[2021-09-04 20:07] LABS: Appearance,Urine Clear (Clear); Color,Urine Yellow; PH, Urine 5.5 (5.0-8.0); Protein,Urine 1+ (Negative); Specific Gravity,Urine 1.023 (1.001-1.035)
[2021-09-04 20:08] LABS: Bacteria,Urine Rare /hpf; Bilirubin,Urine Negative (Negative); Blood,Urine Negative (Negative); Glucose,Urine (UA) 4+ (Negative); Hyaline Casts,Urine 22 /lpf (0-2); Ketones,Urine Negative (Negative); Leukocyte Esterase,Urine Negative (Negative); Mucus,Urine Occasional /hpf; Nitrite,Urine Negative (Negative); RBC,Urine 1 /hpf (0-5); Squamous Epithelial Cell,Urine <1 /hpf (0-4); WBC,Urine 3 /hpf (0-5)
[2021-09-04] MEDS ORDERED: ATORVASTATIN 10 MG TAB PO SCH (21:00)
[2021-09-04] MEDS: METOPROLOL TARTRATE 25 MG TAB PO SCH (21:52)
[2021-09-04] MEDS: IBUPROFEN 200 MG TAB PO PRN (21:52)
[2021-09-04] MEDS: INSULIN DETEMIR (LEVEMIR) 100 UNIT/ML SYR SQ SCH (21:53)
--- NOTE | 2021-09-04 23:27 | P.HPIM ---
History of Present Illness H&P Date: 09/04/21 Chief Complaint: Fever Patient is a 56-year-old male with a known history of diabetes type 2 insulin- dependent, previous history of left foot amputation,, Charcot foot, obstructive sleep apnea on CPAP, hypothyroidism prior history of bilateral wounds in the lower extremities and is on follow-up with his orthopedic surgery patient at [facility], anxiety/depression prior history of smoking presents to ER with complaints of fever and not feeling well since morning. Symptoms started when he woke up in the morning. Patient also developed redness and swelling of the right foot extending up to below the knee. Patient presented to ER for evaluation. No complaints of chest pain or shortness of breath. No cough or sputum production. On admission patient was febrile with T-max 103.2 tachycardic and blood pressure went down to 87/4 3 mmHg. Patient was given IV fluid bolus and was given antibiotic in the form of Zosyn. Patient is allergic to vancomycin. Laboratory showed WBC 18.7 hemoglobin 12.4 and platelets 343 neutrophils 17.1 BUN 2020 creatinine 1.8 and lactic acid 2.1 X-ray of the foot showed there is severe soft tissue swelling over the visualized right ankle and foot. There is partial visualization of sclerosis and deformity of distal tibia and fibula suspected wound infection or injury. Chest x-ray showed there is some infiltrate and atelectasis at the lung bases which is mostly new compared to old exam. No obvious heart failure. Review of Systems Constitutional: Patient does have fever and generalized weakness and not feeling well.. Abdomen: Patient denied nausea vomiting and diarrhea and abdominal pain. Cardiovascular: Patient denies any chest pain or short of breath no palpitations. Respiratory: patient denied any cough or sputum production. No shortness of breath Neurologic: Patient denied any numbness or tingling headache. Musculoskeletal: Patient denies any complaints of joint swelling or deformity. Right lower extremity swelling redness and pain. Skin: Negative Psychiatric: Negative Endocrine: No heat or cold intolerance. No recent weight gain. Genitourinary: No dysuria or hematuria. All other 14 point ROS negative except the above Past Medical History Past Medical History: COPD, Diabetes Mellitus, GERD/Reflux, Hyperlipidemia, Hypertension, Musculoskeletal Disorder, Osteoarthritis (OA), Pneumonia, Sleep Apnea/CPAP/BIPAP, Thyroid Disorder Additional Past Medical History / Comment(s): Hypothyroidism, previous history of right foot osteomyelitis requiring amputation of right great toe, history of wounds in the lower extremities, bilateral feet, charcot joints, hiatal hernia, hx sepsis with MSSA complicated by ARDS and ventilator-dependent respiratory failure and prolonged mechanical ventilation/tracheostomy tube insertion and PEG tube insertion with subsequent removal(2018). No CPAP use. Restless Leg Syndrom e. SOB. Uses scooter if going long distances. Cellulitis left leg. Hx back fracture 2008, wore brace. History of Any Multi-Drug Resistant Organisms: MRSA Date of last positivie culture/infection: 07/2014 MDRO Source:: RT FOOT Past Surgical History: Cholecystectomy, Ear Surgery, Hernia Repair, Orthopedic Surgery, Tonsillectomy Additional Past Surgical History / Comment(s): MULTIPLE I&D LEFT FOOT, vasectomy, rhinoplasty, tendon surgery right wrist, amputation of right great toe and left foot, tubes in ears as a child. Past Anesthesia/Blood Transfusion Reactions: No Reported Reaction Additional Past Anesthesia/Blood Transfusion Reaction / Comment(s): Slow to wake up X1. Past Psychological History: Anxiety, Depression Smoking Status: Former smoker Past Alcohol Use History: Rare Past Drug Use History: None Reported - Past Family History Brother(s) Family Medical History: Deep Vein Thrombosis (DVT) Father Family Medical History: Coronary Artery Disease (CAD), Diabetes Mellitus, Renal Disease Mother Family Medical History: COPD, Diabetes Mellitus Medications and Allergies Home Medications Medication Instructions Recorded Confirmed Type Lovastatin 40 mg PO HS 08/10/14 09/04/21 History Metoprolol Tartrate 25 mg PO BID 08/13/14 09/04/21 History Empagliflozin [Jardiance] 10 mg PO QAM 01/29/19 09/04/21 History Escitalopram [Lexapro] 10 mg PO DAILY 01/29/19 09/04/21 History Ibuprofen 800 mg PO TID 01/29/19 09/04/21 History cloNIDine HCL [Catapres] 0.1 mg PO BID 01/29/19 09/04/21 History rOPINIRole HCL [Requip] 1 mg PO TID 01/29/19 09/04/21 History Albuterol Nebulized [Ventolin 2.5 mg INHALATION RT-Q4H PRN 05/16/20 09/04/21 History Nebulized] Albuterol Sulfate [Proair Hfa] 1 - 2 puff INHALATION RT-Q6H PRN 05/16/2009/04 History Fluticasone/Umeclidin/Vilanter 1 inhalation INHALATION BID 05/16/20 09/04/21 History [Trelegy Ellipta 100-62.5-25] HYDROcodone/APAP 7.5-325MG [[place] 1 tab PO QID 05/16/20 09/04/21 History 7.5-325] Levothyroxine Sodium [Synthroid] 175 mcg PO DAILY 05/16/20 09/04/21 History Losartan [Cozaar] 50 mg PO QAM 05/16/20 09/04/21 History Omeprazole 40 mg PO DAILY 05/16/20 09/04/21 History Insulin Glargine,Hum.rec.anlog 100 units SQ BID 09/04/21 09/04/21 History [[place] Solostar] Insulin Lispro [humaLOG Kwikpen] 60 unit SQ AC-TID 09/04/21 09/04/21 History Insulin Lispro [humaLOG Kwikpen] See Protocol SQ AC-TID 09/04/21 09/04/21 History Pregabalin [Lyrica] 100 mg PO TID 09/04/21 09/04/21 History Semaglutide [Rybelsus] 7 mg PO DAILY 09/04/21 09/04/21 History metFORMIN HCL [Glucophage] 1,000 mg PO DAILY 09/04/21 09/04/21 History Allergies Allergy/AdvReac Type Severity Reaction Status Date / Time ramipril AdvReac Severe Cough Verified 09/04/21 09:15 sulfamethoxazole AdvReac Severe Nausea, Verified 09/04/21 09:15 [From Bactrim] Dizziness, Headaches trimethoprim [From Bactrim] AdvReac Severe Nausea, Verified 09/04/21 09:15 Dizziness, Headaches vancomycin AdvReac Septic Verified 09/04/21 09:15 Shock Physical Exam Vitals: Vital Signs Temp Pulse Resp BP Pulse Ox 09/04/21 11:57 73 18 77/48 98 09/04/21 11:03 77 18 90/55 97 09/04/21 10:24 91 18 120/74 97 09/04/21 09:19 99.8 F H 83 18 88/44 96 09/04/21 08:54 89 18 82/32 87 L 09/04/21 08:15 87 18 98/45 94 L 09/04/21 08:00 92 18 87/43 94 L 09/04/21 07:26 102.2 F H 92 18 99/58 97 09/04/21 06:08 103.2 F H 106 H 22 144/49 95 Intake and Output 09/03/21 09/04/21 09/04/21 22:59 06:59 14:59 Other: Weight 170.097 kg PHYSICAL EXAMINATION: Patient is lying in the bed comfortably, no acute distress, awake alert and oriented.. HEENT: Normocephalic. Neck is supple. Pupils reactive. Nostrils clear. Oral cavity is moist. Neck reveals no JVD, carotid bruits, or thyromegaly. CHEST EXAMINATION: Trachea is central. Symmetrical expansion. Lung gomez clear to auscultation and percussion. Bibasilar diminished sounds. CARDIAC: Normal S1, S2 with no gallops. No murmurs ABDOMEN: Soft. Bowel sounds normal. No organomegaly. No abdominal bruits. Extremities: Patient does have right foot redness and significant swelling, redness and tender to palpation. Patient does have blebs noted on the calf region. No purulent drainage noted.. No clubbing or cyanosis. Previous history of right foot surgery and left foot amputation. Neurologically awake, alert, oriented x3 with well-coordinated movements. No focal deficits noted Skin: No rash or skin lesions. Psychiatric: Cooperative. Nonsuicidal Musculoskeletal: No joint swelling or deformity. Normal range of motion. Results CBC & Chem 7: 09/04/21 06:10 09/04/21 06:10 Labs: Abnormal Lab Results - Last 24 Hours (Table) 09/04/21 09/04/21 09/04/21 Range/Units 06:10 06:10 06:10 WBC 18.7 H (3.8-10.6) k/uL Hgb 12.4 L (13.0-17.5) gm/dL Neutrophils # 17.1 H (1.3-7.7) k/uL Lymphocytes # 0.5 L (1.0-4.8) k/uL BUN 22 H (9-20) mg/dL Creatinine 1.32 H (0.66-1.25) mg/dL Glucose 67 L (74-99) mg/dL Plasma Lactic Acid Ron 2.1 H* (0.7-2.0) mmol/L Alkaline Phosphatase 171 H (38-126) U/L Thrombosis Risk Factor Assmnt - DVT/VTE Prophylaxis DVT/VTE Prophylaxis: Pharmacologic Prophylaxis ordered Assessment and Plan Assessment: Right foot cellulitis with extensive osteotrophic changes . possible osteomyelitis with prior history of surgery for Charcot foot. Sepsis/septic shock secondary to above Previous history of left foot amputation and osteomyelitis Morbid obesity with BMI 49.5 Diabetes type 2 insulin-dependent Hypertension Hyperlipidemia Obstructive sleep apnea History of MSSA septicemia and VDRF Anxiety/depression Previous history of smoking DVT prophylaxis with heparin subcu. Plan: Patient will be continued IV hydration with normal saline. Patient was given more than 2 L fluid bolus in the ER with improvement in blood pressure. Was given a dose of Zosyn and continue every 8 hourly. Patient is allergic to vancomycin. ID will be consulted for further antibiotic recommendations. Patient discharged back on home insulin regimen and sliding scale. Continue with home medications and follow closely. GI and DVT prophylaxis. Prognosis guarded at this time. Discussed with the patient and his at bedside in detail. Time with Patient: Greater than 30
--- NOTE | 2021-09-05 00:18 | P.CONS ---
History of Present Illness - Reason for Consult Consult date: 09/04/21 Right lower extremity cellulitis Requesting physician: Jerald Banda - Chief Complaint Right leg swelling and redness x few days - History of Present Illness Patient is a 56-year male with a past medical his significant for diabetes mellitus also with a history of diabetic foot infection requiring left below the knee amputation, and this patient did have a history of right diabetic foot wound with the patient been taking care of himself by applying some Me dihoney patient is presenting to the [facility] ER with concern for increasing swelling redness of the right lower extremity that has been getting worse for the last few days patient to have diabetic neuropathy hence denies significant pain to the right lower extremity patient wound has dried out and currently with no drainage, patient on presentation to the hospital did have a fever of 103.2 F patient was mildly hypoxic and need for supplemental oxygen patient did have white count of 18.7 with a left shift creatinine has been mild elevated 1.32 liver enzymes are normal dooley PCR was negative influenza was negative patient was started on Zosyn subsequently has been admitted to the hospital infectious disease was consulted for further management of antibiotic therapy Review of Systems Positive point has been mentioned in the HPI rest of the systems are negative Past Medical History Past Medical History: COPD, Diabetes Mellitus, GERD/Reflux, Hyperlipidemia, Hypertension, Musculoskeletal Disorder, Osteoarthritis (OA), Pneumonia, Sleep Apnea/CPAP/BIPAP, Thyroid Disorder Additional Past Medical History / Comment(s): Hypothyroidism, previous history of right foot osteomyelitis requiring amputation of right great toe, history of wounds in the lower extremities, bilateral feet, charcot joints, hiatal hernia, hx sepsis with MSSA complicated by ARDS and ventilator-dependent respiratory failure and prolonged mechanical ventilation/tracheostomy tube insertion and PEG tube insertion with subsequent removal(2018). No CPAP use. Restless Leg Syndrome. SOB. Uses scooter if going long distances. Cellulitis left leg. Hx back fracture 2008, wore brace. History of Any Multi-Drug Resistant Organisms: MRSA Year Discovered:: 07/2014 MDRO Source:: RT FOOT Past Surgical History: Cholecystectomy, Ear Surgery, Hernia Repair, Orthopedic Surgery, Tonsillectomy Additional Past Surgical History / Comment(s): MULTIPLE I&D LEFT FOOT, vasectomy, rhinoplasty, tendon surgery right wrist, amputation of right great toe and left foot, tubes in ears as a child. Past Anesthesia/Blood Transfusion Reactions: No Reported Reaction Additional Past Anesthesia/Blood Transfusion Reaction / Comm: Slow to wake up X1. Past Psychological History: Anxiety, Depression Smoking Status: Former smoker Past Alcohol Use History: Rare Past Drug Use History: None Reported - Past Family History Brother(s) Family Medical History: Deep Vein Thrombosis (DVT) Father Family Medical History: Coronary Artery Disease (CAD), Diabetes Mellitus, Renal Disease Mother Family Medical History: COPD, Diabetes Mellitus Medications and Allergies Home Medications Medication Instructions Recorded Confirmed Type Lovastatin 40 mg PO HS 08/10/14 09/04/21 History Metoprolol Tartrate 25 mg PO BID 08/13/14 09/04/21 History Empagliflozin [Jardiance] 10 mg PO QAM 01/29/19 09/04/21 History Escitalopram [Lexapro] 10 mg PO DAILY 01/29/19 09/04/21 History Ibuprofen 800 mg PO TID 01/29/19 09/04/21 History cloNIDine HCL [Catapres] 0.1 mg PO BID 01/29/19 09/04/21 History rOPINIRole HCL [Requip] 1 mg PO TID 01/29/19 09/04/21 History Albuterol Nebulized [Ventolin 2.5 mg INHALATION RT-Q4H PRN 05/16/20 09/04/21 History Nebulized] Albuterol Sulfate [Proair Hfa] 1 - 2 puff INHALATION RT-Q6H PRN 05/16/20 09/04/21 History Fluticasone/Umeclidin/Vilanter 1 inhalation INHALATION BID 05/16/20 09/04/21 History [Trelegy Ellipta 100-62.5-25] HYDROcodone/APAP 7.5-325MG [[place] 1 tab PO QID 05/16/20 09/04/21 History 7.5-325] Levothyroxine Sodium [Synthroid] 175 mcg PO DAILY 05/16/20 09/04/21 History Losartan [Cozaar] 50 mg PO QAM 05/16/20 09/04/21 History Omeprazole 40 mg PO DAILY 05/16/20 09/04/21 History Insulin Glargine,Hum.rec.anlog 100 units SQ BID 09/04/21 09/04/21 History [[place]sh[place] Avalos] Insulin Lispro [humaLOG Kwikpen] 60 unit SQ AC-TID 09/04/21 09/04/21 History Insulin Lispro [humaLOG Kwikpen] See Protocol SQ AC-TID 09/04/21 09/04/21 History Pregabalin [Lyrica] 100 mg PO TID 09/04/21 09/04/21 History Semaglutide [Rybelsus] 7 mg PO DAILY 09/04/21 09/04/21 History metFORMIN HCL [Glucophage] 1,000 mg PO DAILY 09/04/21 09/04/21 History Allergies Allergy/AdvReac Type Severity Reaction Status Date / Time ramipril AdvReac Severe Cough Verified 09/04/21 09:15 sulfamethoxazole AdvReac Severe Nausea, Verified 09/04/21 09:15 [From Bactrim] Dizziness, Headaches trimethoprim [From Bactrim] AdvReac Severe Nausea, Verified 09/04/21 09:15 Dizziness, Headaches vancomycin AdvReac Septic Verified 09/04/21 09:15 Shock Physical Exam Vitals: Vital Signs Temp Pulse Resp BP Pulse Ox 09/04/21 11:57 73 18 77/48 98 09/04/21 11:03 77 18 90/55 97 09/04/21 10:24 91 18 120/74 97 09/04/21 09:19 99.8 F H 83 18 88/44 96 09/04/21 08:54 89 18 82/32 87 L 09/04/21 08:15 87 18 98/45 94 L 09/04/21 08:00 92 18 87/43 94 L 09/04/21 07:26 102.2 F H 92 18 99/58 97 09/04/21 06:08 103.2 F H 106 H 22 144/49 95 Intake and Output 09/03/21 09/04/21 09/04/21 22:59 06:59 14:59 Other: Weight 170.097 kg GENERAL DESCRIPTION: Middle-aged male lying in bed, no distress. No tachypnea or accessory muscle of respiration use. HEENT: Shows Pallor , no scleral icterus. Oral mucous membrane is dry. No pharyngeal erythema or thrush NECK: Trachea central, no thyromegaly. LUNGS: Unlabored breathing. Clear to auscultation anteriorly. No wheeze or crackle. HEART: S1, S2, regular rate and rhythm. No loud murmur ABDOMEN: Soft, no tenderness , guarding or rigidity, no organomegaly EXTREMITIES: Right leg did have diffuse swelling and redness warm to touch no drainage SKIN: No rash, no masses palpable. NEUROLOGICAL: The patient is awake, alert, oriented x3, mood and affect normal. Results CBC & Chem 7: 09/04/21 06:10 09/04/21 06:10 Labs: Abnormal Lab Results - Last 24 Hours (Table) 09/04/21 09/04/21 09/04/21 Range/Units 06:10 06:10 06:10 WBC 18.7 H (3.8-10.6) k/uL Hgb 12.4 L (13.0-17.5) gm/dL Neutrophils # 17.1 H (1.3-7.7) k/uL Lymphocytes # 0.5 L (1.0-4.8) k/uL BUN 22 H (9-20) mg/dL Creatinine 1.32 H (0.66-1.25) mg/dL Glucose 67 L (74-99) mg/dL Plasma Lactic Acid Ron 2.1 H* (0.7-2.0) mmol/L Alkaline Phosphatase 171 H (38-126) U/L Assessment and Plan (1) Sepsis Current Visit: Yes Status: Acute Priority: Medium Code(s): A41.9 - SEPSIS, UNSPECIFIED ORGANISM SNOMED Code(s): 93041180 (2) Cellulitis of left ankle Current Visit: No Status: Acute Code(s): L03.116 - CELLULITIS OF LEFT LOWER LIMB SNOMED Code(s): 33326327001342513 Plan: 1patient presented to hospital with sepsis in this patient did have fever tachycardia elevated white count sources right diabetic foot infection and concern for possible abscess, and will need to cover for both gram-positive as well as gram-negative pathogen. 2patient with multiple antibiotic allergies that would limit the number of antibiotics safe to use 3we will obtain a CT of the right foot and ankle area to make sure no evidence of any abscess that may need to be drained. 4Zosyn 3.375 g every 8 hours to continue. 5we will start the patient on daptomycin 6 mg/kg daily We will follow on clinical condition and cultures to further adjust medication if needed Thank you for this consultation will follow this patient along with you Time with Patient: Greater than 30
[2021-09-05] MEDS: HEPARIN SODIUM,PORCINE/PF 5,000 UNIT/0.5 ML SYRINGE SQ SCH ×3 (00:45→15:14)
[2021-09-05] MEDS: IBUPROFEN 200 MG TAB PO PRN ×2 (01:53→17:24)
[2021-09-05] MEDS ORDERED: LEVOTHYROXINE 88 MCG TAB PO SCH (07:30)
[2021-09-05] MEDS ORDERED: PANTOPRAZOLE 40 MG TABLET PO SCH (07:30)
[2021-09-05 07:46] LABS: Glucose,Whole Blood 186 mg/dL (75-99)
[2021-09-05 07:49] VITALS: RESP 20
[2021-09-05] MEDS: SYMBICORT 80-4.5 MCG INHALER INHALATION SCH (08:29)
[2021-09-05] MEDS: IPRATROPIUM 0.5 MG/2.5 ML NEBU INHALATION SCH ×3 (08:29→16:06)
[2021-09-05] MEDS: INSULIN ASPART (NovoLOG) 100 UNIT/ML VIAL SQ SCH ×6 (08:34→17:25)
[2021-09-05] MEDS: HYDROcodone/APAP 5-325MG 1 EACH TAB PO PRN (08:56)
[2021-09-05] MEDS: PIPERACILLIN-TAZOBACTAM 3.375 GM in SODIUM CHLORIDE 0.9% 100 ML IVPB SCH (08:56)
[2021-09-05] MEDS: PREGABALIN 100 MG CAP PO SCH ×2 (08:57→15:14)
[2021-09-05] MEDS: METOPROLOL TARTRATE 25 MG TAB PO SCH (08:57)
[2021-09-05] MEDS: INSULIN DETEMIR (LEVEMIR) 100 UNIT/ML SYR SQ SCH (08:57)
[2021-09-05] MEDS ORDERED: LOSARTAN 50 MG TAB PO SCH (09:00)
[2021-09-05] MEDS ORDERED: metFORMIN 500 MG TAB PO SCH (09:00)
[2021-09-05] MEDS ORDERED: Empagliflozin [Jardiance] PO SCH (09:00)
[2021-09-05] MEDS ORDERED: ESCITALOPRAM 10 MG TAB PO SCH (09:00)
[2021-09-05] MEDS ORDERED: Semaglutide [Rybelsus] PO SCH (09:00)
[2021-09-05 09:01] LABS: HCT 36.9 % (39.6-50.0); HGB 10.8 g/dL (13.0-17.0); MCH 26.5 pg (27.0-32.0); MCHC 29.3 g/dL (32.0-37.0); MCV 90.4 fL (80.0-97.0); Mean Platelet Volume 10.7 fL (9.5-12.2); NRBC Per 100 WBC 0 /100 WBCS (0.0-0.0); Platelet Count 295 X 10*3/uL (140-440); RBC 4.08 X 10*6/uL (4.40-5.60); RDW 15.4 % (11.5-14.5)
[2021-09-05 09:12] LABS: African American GFR (CKD) 54.6 (60.0-200.0); Anion Gap 11.5 mmol/L (10.00-18.00); BUN/Creat Ratio 14.06 Ratio (12.00-20.00); Blood Urea Nitrogen 22.5 mg/dL (9.0-27.0); C Reactive Protein 19.4 mg/dL (0.00-0.80); Calcium 8.2 mg/dL (8.7-10.3); Carbon Dioxide 21.5 mmol/L (20.0-27.5); Non-African American GFR(CKD) 47.1 (60.0-200.0); Potassium 4.8 mmol/L (3.5-5.5)
[2021-09-05] MEDS: HYDROcodone/APAP 7.5-325MG 1 EACH TAB PO SCH ×3 (09:13→17:24)
[2021-09-05 09:55] LABS: Basophils # (A) 0.04 X 10*3/uL (0.00-0.10); Basophils % (A) 0.2 %; Eosinophils # (A) 0.01 X 10*3/uL (0.04-0.35); Eosinophils % (A) 0.1 %; Lymphocytes # (A) 0.51 X 10*3/uL (0.90-5.00); Lymphocytes % (A) 3.1 %; Monocytes # (A) 1.67 X 10*3/uL (0.20-1.00); Monocytes % (A) 10.1 %; Neutrophils % (A) 85.5 %
--- NOTE | 2021-09-05 12:26 | XR ---
EXAMINATION TYPE: XR chest 1V portable DATE OF EXAM: 09/05/2021 COMPARISON: 09/04/2021 HISTORY: Shortness of breath TECHNIQUE: Single frontal view of the chest is obtained. FINDINGS: Elevated right hemidiaphragm with cardiomegaly and coarsened interstitium. Bibasilar subse gmental consolidation. No pneumothorax. IMPRESSION: 1. Right hemidiaphragm paresis with by basilar atelectasis favored over infiltrate. Correlate for chr onic interstitial lung disease or venous congestion.
[2021-09-05] MEDS: SODIUM CHLORIDE 0.9% 1,000 ML IV SCH ×2 (12:33→17:29)
[2021-09-05] MEDS: AMPICILLIN-SULBACTAM 3 GM in SODIUM CHLORIDE 0.9% 100 ML IVPB SCH ×2 (12:33→17:24)
[2021-09-05 12:38] LABS: Glucose,Whole Blood 225 mg/dL (75-99)
[2021-09-05 13:48] LABS: Erythrocyte Sedimentation Rate 46 mm/Hr (0-20)
[2021-09-05 14:04] VITALS: BP 113/68
--- NOTE | 2021-09-05 16:15 | P.PN ---
Subjective Progress Note Date: 09/05/21 Patient is a 56-year-old male with a known history of diabetes type 2 insulin- dependent, previous history of left foot amputation,, Charcot foot, obstructive sleep apnea on CPAP, hypothyroidism prior history of bilateral wounds in the lower extremities and is on follow-up with his orthopedic surgery patient at [facility], anxiety/depression prior history of smoking presents to ER with complaints of fever and not feeling well since morning. Symptoms started when he woke up in the morning. Patient also developed redness and swelling of the right foot extending up to below the knee. Patient presented to ER for evaluation. No complaints of chest pain or shortness of breath. No cough or s putum production. On admission patient was febrile with T-max 103.2 tachycardic and blood pressure went down to 87/4 3 mmHg. Patient was given IV fluid bolus and was given antibiotic in the form of Zosyn. Patient is allergic to vancomycin. Laboratory showed WBC 18.7 hemoglobin 12.4 and platelets 343 neutrophils 17.1 BUN 2020 creatinine 1.8 and lactic acid 2.1 X-ray of the foot showed there is severe soft tissue swelling over the visualized right ankle and foot. There is partial visualization of sclerosis and deformity of distal tibia and fibula suspected wound infection or injury. Chest x-ray showed there is some infiltrate and atelectasis at the lung bases which is mostly new compared to old exam. No obvious heart failure. 09/05/2021 Patient is seen and evaluated in follow-up continues to be an ER hold for admission with at the bedside. Patient is maintained on IV antibiotics with infectious disease following closely as patient has multiple antibiotic ALLERGIES. Patient was started on daptomycin along with Unasyn as patient originally presented with fevers. Patient having right lower extremity cellulitis with oozing and vesicles noted with continued extensive swelling noted as well. Vascular surgery was consulted for possible biopsy or drainage of potential abscess that was noted on CT of the right foot. CT notes a complex mass posterior to the distal tibia measuring 17 x 8 cm that contains fluid and calcifications also an abscess should be considered. Patient also continues with shortness of breath and per at the bedside probably has been requiring it although does not use it at home and currently maintained on 5 L. Chest x- ray was obtained and currently pending. Patient denies worsening shortness of breath, chest pain, or palpitations. Patient also maintained on IV saline at 130 mL per hour as he originally had an elevated lactic acid on admission which normalized to 1.4. Patient continues to have fevers. Patient denies any nausea or vomiting and is tolerating diet. Review of systems: Constitutional: No reports of fatigue, fever, or chills Cardiovascular: No reports of chest pain or palpitations Respiratory: No reports of shortness of breath or cough GI: No reports of nausea, vomiting, or diarrhea : No reports of dysuria or retention Neurovascular: No reports of weakness or numbness All medications have been reviewed Active Medications Acetaminophen (Acetaminophen Tab 325 Mg Tab) 650 mg PO Q4HR PRN PRN Reason: Fever and/ or Pain Last Admin: 09/04/21 23:11 Dose: 650 mg Documented by: Hydrocodone Bitart/Acetaminophen (Hydrocodone/Apap 5-325mg 1 Each Tab) 1 each PO Q4HR PRN PRN Reason: Moderate Pain Last Admin: 09/05/21 08:56 Dose: 1 each Documented by: Hydrocodone Bitart/Acetaminophen (Hydrocodone/Apap 7.5-325mg 1 Each Tab) 1 each PO QID COUNT INCLUDES THE [facility] Last Admin: 09/05/21 14:04 Dose: 1 each Documented by: Albuterol Sulfate (Albuterol Nebulized 2.5 Mg/3 Ml) 2.5 mg INHALATION RT-Q4H PRN PRN Reason: Shortness Of Breath Last Admin: 09/05/21 16:07 Dose: 2.5 mg Documented by: Budesonide/Formoterol Fumarate (Symbicort 80-4.5 Mcg Inhaler) 2 puff INHALATION RT-BID COUNT INCLUDES THE [facility] Last Admin: 09/05/21 08:29 Dose: Not Given Documented by: Escitalopram Oxalate (Escitalopram 10 Mg Tab) 10 mg PO DAILY COUNT INCLUDES THE [facility] Last Admin: 09/05/21 08:58 Dose: 10 mg Documented by: Heparin Sodium (Porcine) (Heparin Sodium,Porcine/Pf 5,000 Unit/0.5 Ml Syringe) 5,000 unit SQ Q8HR COUNT INCLUDES THE [facility] Last Admin: 09/05/21 15:14 Dose: 5,000 unit Documented by: Sodium Chloride (Saline 0.9%) 1,000 mls @ 130 mls/hr IV .Q7H42M COUNT INCLUDES THE [facility] Last Admin: 09/05/21 12:33 Dose: 130 mls/hr Documented by: Ampicillin Sodium/Sulbactam (Sodium 3 gm/ Sodium Chloride) 100 mls @ 200 mls/hr IVPB Q6HR COUNT INCLUDES THE [facility]; Protocol Last Admin: 09/05/21 12:33 Dose: 200 mls/hr Documented by: Daptomycin 1,000 mg/ Sodium (Chloride) 50 mls @ 100 mls/hr IVPB Q24H COUNT INCLUDES THE [facility]; Protocol Last Admin: 09/05/21 14:04 Dose: 100 mls/hr Documented by: Ibuprofen (Ibuprofen 200 Mg Tab) 200 mg PO Q6HR PRN PRN Reason: Fever and/ or Pain Last Admin: 09/05/21 01:53 Dose: 200 mg Documented by: Insulin Aspart (Insulin Aspart (Novolog) 100 Unit/Ml Vial) 60 unit SQ AC-TID COUNT INCLUDES THE [facility] Last Admin: 09/05/21 12:38 Dose: Not Given Documented by: Insulin Aspart (Insulin Aspart (Novolog) 100 Unit/Ml Vial) 0 unit SQ AC-TID COUNT INCLUDES THE [facility]; Protocol Last Admin: 09/05/21 12:33 Dose: 7 unit Documented by: Insulin Detemir (Insulin Detemir (Levemir) 100 Unit/Ml Syr) 100 unit SQ BID@0700,2100 COUNT INCLUDES THE [facility] Last Admin: 09/05/21 08:57 Dose: 100 unit Documented by: Ipratropium Baxter (Ipratropium 0.5 Mg/2.5 Ml Nebu) 0.5 mg INHALATION RT-QID COUNT INCLUDES THE [facility] Last Admin: 09/05/21 16:06 Dose: 0.5 mg Documented by: Levothyroxine Sodium (Levothyroxine 88 Mcg Tab) 176 mcg PO AC-BRKFST COUNT INCLUDES THE [facility] Last Admin: 09/05/21 08:58 Dose: 176 mcg Documented by: Losartan Potassium (Losartan 50 Mg Tab) 50 mg PO QAM COUNT INCLUDES THE [facility] Last Admin: 09/05/21 08:57 Dose: 50 mg Documented by: Metoprolol Tartrate (Metoprolol Tartrate 25 Mg Tab) 25 mg PO BID COUNT INCLUDES THE [facility] Last Admin: 09/05/21 08:57 Dose: 25 mg Documented by: Naloxone HCl (Naloxone 0.4 Mg/Ml 1 Ml Vial) 0.2 mg IV Q2M PRN PRN Reason: Opioid Reversal Empagliflozin [ (Jardiance]) 10 mg PO QAM COUNT INCLUDES THE [facility] Last Admin: 09/05/21 09:13 Dose: Not Given Documented by: Semaglutide [ (Rybelsus]) 7 mg PO DAILY COUNT INCLUDES THE [facility] Last Admin: 09/05/21 09:13 Dose: Not Given Documented by: Ondansetron HCl (Ondansetron 4 Mg/2 Ml Vial) 4 mg IVP Q8HR PRN PRN Reason: Nausea And Vomiting Pantoprazole Sodium (Pantoprazole 40 Mg Tablet) 40 mg PO AC-BRKFST COUNT INCLUDES THE [facility] Last Admin: 09/05/21 08:57 Dose: 40 mg Documented by: Pregabalin (Pregabalin 100 Mg Cap) 100 mg PO TID COUNT INCLUDES THE [facility] Last Admin: 09/05/21 15:14 Dose: 100 mg Documented by: Ropinirole HCl (Ropinirole Hcl 1 Mg Tab) 1 mg PO TID COUNT INCLUDES THE [facility] Last Admin: 09/05/21 15:14 Dose: 1 mg Documented by: Physical exam: Patient is lying in the bed comfortably, no acute distress, awake alert and oriented.. HEENT: Normocephalic. Neck is supple. Pupils reactive. Nostrils clear. Oral cavity is moist. Neck reveals no JVD, carotid bruits, or thyromegaly. CHEST EXAMINATION: Trachea is central. Symmetrical expansion. Lung gomez clear to auscultation and percussion. Bibasilar diminished sounds. CARDIAC: Normal S1, S2 with no gallops. No murmurs ABDOMEN: Soft. Bowel sounds normal. No organomegaly. No abdominal bruits. Extremities: Patient does have right foot redness and significant swelling, redness and tender to palpation. Patient does have oozing and vesicles noted on the calf region. No purulent drainage noted.. No clubbing or cyanosis. Previous history of right foot surgery and left foot amputation. Neurologically awake, alert, oriented x3 with well-coordinated movements. No focal deficits noted Skin: No rash or skin lesions. Psychiatric: Cooperative. Non-suicidal Musculoskeletal: No joint swelling or deformity. Normal range of motion. Assessment: Right foot cellulitis with extensive osteotrophic changes . possible osteomyelitis with prior history of surgery for Charcot foot. Sepsis/septic shock secondary to above, present on admission Previous history of left foot amputation and osteomyelitis Morbid obesity with BMI 49.5 Acute hypoxic respiratory failure, currently requiring 5 L of oxygen Diabetes type 2 insulin-dependent Hypertension Hyperlipidemia Obstructive sleep apnea History of MSSA septicemia and VDRF Anxiety/depression Previous history of smoking DVT prophylaxis with heparin subcu. GI prophylaxis Full code Plan: Patient will be continued IV hydration with normal saline. We'll decrease the dose slightly as patient was given multiple boluses for lactic acidosis which has improved. Patient is tolerating diet with no reports of nausea or vomiting noted. Chest x-ray ordered as patient is on 5 L of oxygen although does not wear any oxygen in the outpatient setting and shows right hemidiaphragm paresis with basilar atelectasis favored over infiltrate, correlate for chronic interstitial lung disease or venous congestion. Per at the bedside patient has not followed back up with further testing for possible oxygen requirements and patient did have sleep apnea although unable to tolerate the CPAP machine. ID following and also consulted vascular surgery for possible abscess drainage that was noted on foot CT and Dr. Hines recommending transfer to tertiary [facility] for possible surgical intervention of the right lower extremity. Patient reports to being scheduled for amputation in the next month or so at [place]. Case management consulted and initiating the transfer process. Appropriate home medications have been resumed and recommend to continue following blood sugars closely with Accu-Cheks before meals and at bedtime and continue sliding scale and other diabetic agents. Due to multiple complex medical issues, prognosis is guarded. The impression and plan of care has been dictated by Nina English, nurse practitioner as directed. MD Kandis I have performed a history and examination and MDM of this patient, discussed the same with the dictator, and agree with the dictator's assessment and plan as written ,documented as a scribe. Based on total visit time, I have performed more than 50% of the visit. Any additional findings or plans will be noted. Objective - Vital Signs Vital signs: Vital Signs Temp 100 F H 09/05/21 07:48 Pulse 94 09/05/21 07:48 Resp 20 09/05/21 07:48 BP 108/66 09/05/21 07:48 Pulse Ox 94 L 09/05/21 07:48 Intake & Output 09/04/21 09/05/21 09/05/21 18:59 06:59 18:59 Weight 170.097 kg Other: Voiding Method Toilet Urinal Urinal - Labs CBC & Chem 7: 09/05/21 04:43 09/05/21 04:43 Labs: Abnormal Lab Results - Last 24 Hours (Table) 09/04/21 09/04/21 09/04/21 Range/Units 12:57 13:18 13:36 WBC (4.50-10.00) X 10*3/uL RBC (4.40-5.60) X 10*6/uL Hgb (13.0-17.0) g/dL Hct (39.6-50.0) % MCH (27.0-32.0) pg MCHC (32.0-37.0) g/dL RDW (11.5-14.5) % Creatinine (0.6-1.5) mg/dL Est GFR (CKD-EPI)AfAm (60.0-200.0) Est GFR (CKD-EPI)NonAf (60.0-200.0) Glucose (70-110) mg/dL POC Glucose (mg/dL) 44 L 48 L 68 L (75-99) mg/dL Calcium (8.7-10.3) mg/dL C-Reactive Protein (0.00-0.80) mg/dL Urine Protein (Negative) Urine Glucose (UA) (Negative) Urine Bacteria (None) /hpf Hyaline Casts (0-2) /lpf Urine Mucus (None) /hpf 09/04/21 09/04/21 09/04/21 Range/Units 13:49 14:59 17:46 WBC (4.50-10.00) X 10*3/uL RBC (4.40-5.60) X 10*6/uL Hgb (13.0-17.0) g/dL Hct (39.6-50.0) % MCH (27.0-32.0) pg MCHC (32.0-37.0) g/dL RDW (11.5-14.5) % Creatinine (0.6-1.5) mg/dL Est GFR (CKD-EPI)AfAm (60.0-200.0) Est GFR (CKD-EPI)NonAf (60.0-200.0) Glucose (70-110) mg/dL POC Glucose (mg/dL) 111 H 186 H 176 H (75-99) mg/dL Calcium (8.7-10.3) mg/dL C-Reactive Protein (0.00-0.80) mg/dL Urine Protein (Negative) Urine Glucose (UA) (Negative) Urine Bacteria (None) /hpf Hyaline Casts (0-2) /lpf Urine Mucus (None) /hpf 09/04/21 09/05/21 09/05/21 Range/Units 19:46 04:43 04:43 WBC 16.50 H (4.50-10.00) X 10*3/uL RBC 4.08 L (4.40-5.60) X 10*6/uL Hgb 10.8 L (13.0-17.0) g/dL Hct 36.9 L (39.6-50.0) % MCH 26.5 L (27.0-32.0) pg MCHC 29.3 L (32.0-37.0) g/dL RDW 15.4 H (11.5-14.5) % Creatinine 1.6 H (0.6-1.5) mg/dL Est GFR (CKD-EPI)AfAm 54.6 L (60.0-200.0) Est GFR (CKD-EPI)NonAf 47.1 L (60.0-200.0) Glucose 165 H (70-110) mg/dL POC Glucose (mg/dL) (75-99) mg/dL Calcium 8.2 L (8.7-10.3) mg/dL C-Reactive Protein 19.40 H (0.00-0.80) mg/dL Urine Protein 1+ H (Negative) Urine Glucose (UA) 4+ H (Negative) Urine Bacteria Rare H (None) /hpf Hyaline Casts 22 H (0-2) /lpf Urine Mucus Occasional H (None) /hpf 09/05/21 Range/Units 07:45 WBC (4.50-10.00) X 10*3/uL RBC (4.40-5.60) X 10*6/uL Hgb (13.0-17.0) g/dL Hct (39.6-50.0) % MCH (27.0-32.0) pg MCHC (32.0-37.0) g/dL RDW (11.5-14.5) % Creatinine (0.6-1.5) mg/dL Est GFR (CKD-EPI)AfAm (60.0-200.0) Est GFR (CKD-EPI)NonAf (60.0-200.0) Glucose (70-110) mg/dL POC Glucose (mg/dL) 186 H (75-99) mg/dL Calcium (8.7-10.3) mg/dL C-Reactive Protein (0.00-0.80) mg/dL Urine Protein (Negative) Urine Glucose (UA) (Negative) Urine Bacteria (None) /hpf Hyaline Casts (0-2) /lpf Urine Mucus (None) /hpf Microbiology - Last 24 Hours (Table) 09/04/21 06:23 Blood Culture Gram Stain - Preliminary Blood 09/04/21 06:38 Blood Culture Gram Stain - Preliminary Blood 09/04/21 06:23 Blood Culture Gram Stain - Preliminary Blood 09/04/21 06:38 Blood Culture Gram Stain - Preliminary Blood 09/04/21 06:10 Blood Culture - Final Blood 09/04/21 06:25 Blood Culture - Final Blood
[2021-09-05 16:19] VITALS: PULSE 86
[2021-09-05 17:08] LABS: Glucose,Whole Blood 216 mg/dL (75-99)
[2021-09-05 19:58] VITALS: TEMP 98.7
--- NOTE | 2021-09-06 09:40 | P.DS ---
Providers Date of admission: 09/04/21 10:40 Expected date of discharge: 09/06/21 Attending physician: Jerald Banda Consults: 09/04/21 12:18 Consult Physician Routine Consulting Provider: Joaquim Black Consult Reason/Comments: RLE cellulitis, Sepsis Do you want consulting provider notified?: Yes 09/04/21 19:53 Consult Physician Stat Consulting Provider: Joaquim Black Consult Reason/Comments: Gram Positive cocci blood cultures Do you want consulting provider notified?: Yes 09/05/21 11:51 Consult Physician Urgent Consulting Provider: Francisco Hines Consult Reason/Comments: abscess of right leg Do you want consulting provider notified?: Yes Primary care physician: Rj Haynes [facility] Course: Final diagnosis Right foot cellulitis with extensive osteotrophic changes . possible osteomyelitis with prior history of surgery for Charcot foot. Sepsis/septic shock secondary to above, present on admission Previous history of left foot amputation and osteomyelitis Morbid obesity with BMI 49.5 Acute hypoxic respiratory failure, currently requiring 5 L of oxygen Diabetes type 2 insulin-dependent Hypertension Hyperlipidemia Obstructive sleep apnea History of MSSA septicemia and VDRF Anxiety/depression Previous history of smoking DVT prophylaxis with heparin subcu. GI prophylaxis Full code Discharge disposition Patient is being transferred in a stable condition with guarded prognosis to [facility] for surgical evaluation at tertiary [facility]. Patient will follow-up with Dr. Haynes in the outpatient setting upon discharge. Patient is to continue IV daptomycin and Unasyn per infectious disease. Total time taken is greater than 35 minutes. Hospital course This is a 56-year-old male who was recently admitted for right lower extremity cellulitis and redness and increasing swelling that had progressively been getting worse. Patient was scheduled in the next few weeks tentatively for orthopedic surgery with his [facility] doctor, but patient started developing fevers and increasing redness and swelling and came to the ER for further evaluation. Infectious disease following patient maintained on IV antib iotics and vascular surgery Dr. Hines was consulted for possible abscess of the right lower extremity and after evaluation Dr. Hines recommended tertiary [facility] center transfer to [place] for surgical intervention. Transfer process was initiated an authorization obtained and patient will be transferred to [facility] once a bed becomes available. Patient currently also on 5 L via nasal cannula for shortness of breath. Patient does not normally wear oxygen in the outpatient setting. Currently no reports of chest pain, worsening shortness of breath, or palpitations. Patient is afebrile. No reports of nausea or vomiting and patient is tolerating diet. Physical exam: Patient is lying in the bed comfortably, no acute distress, awake alert and oriented.. HEENT: Normocephalic. Neck is supple. Pupils reactive. Nostrils clear. Oral cavity is moist. Neck reveals no JVD, carotid bruits, or thyromegaly. CHEST EXAMINATION: Trachea is central. Symmetrical expansion. Lung gomez clear to auscultation and percussion. Bibasilar diminished sounds. CARDIAC: Normal S1, S2 with no gallops. No murmurs ABDOMEN: Soft. Bowel sounds normal. No organomegaly. No abdominal bruits. Extremities: Patient does have right foot redness and significant swelling, redness and tender to palpation. Patient does have oozing and vesicles noted on the calf region. No purulent drainage noted.. No clubbing or cyanosis. Previous history of right foot surgery and left foot amputation. Neurologically awake, alert, oriented x3 with well-coordinated movements. No focal deficits noted Skin: No rash or skin lesions. Psychiatric: Cooperative. Non-suicidal Musculoskeletal: No joint swelling or deformity. Normal range of motion. Please refer to medication reconciliation sheet for a list of medications. The impression and plan of care has been dictated by Nina English, nurse practitioner as directed. MD Kandis I have performed a history and examination and MDM of this patient, discussed the same with the dictator, and agree with the dictator's assessment and plan as written ,documented as a scribe. Based on total visit time, I have performed more than 50% of the visit. . Patient Condition at Discharge: Stable Plan - Discharge Summary Discharge Rx Participant: No New Discharge Prescriptions: No Action Lovastatin 40 mg PO HS Metoprolol Tartrate 25 mg PO BID rOPINIRole HCL [Requip] 1 mg PO TID Escitalopram [Lexapro] 10 mg PO DAILY Ibuprofen 800 mg PO TID Empagliflozin [Jardiance] 10 mg PO QAM cloNIDine HCL [Catapres] 0.1 mg PO BID Albuterol Nebulized [Ventolin Nebulized] 2.5 mg INHALATION RT-Q4H PRN PRN Reason: Shortness Of Breath Losartan [Cozaar] 50 mg PO QAM HYDROcodone/APAP 7.5-325MG [Hunt 7.5-325] 1 tab PO QID Albuterol Sulfate [Proair Hfa] 1 - 2 puff INHALATION RT-Q6H PRN PRN Reason: Shortness Of Breath Omeprazole 40 mg PO DAILY Levothyroxine Sodium [Synthroid] 175 mcg PO DAILY Fluticasone/Umeclidin/Vilanter [Trelegy Ellipta 100-62.5-25] 1 inhalation INHALATION BID Insulin Glargine,Hum.rec.anlog [Toujeo Solostar] 100 units SQ BID Insulin Lispro [humaLOG Kwikpen] 60 unit SQ AC-TID Pregabalin [Lyrica] 100 mg PO TID Semaglutide [Rybelsus] 7 mg PO DAILY metFORMIN HCL [Glucophage] 1,000 mg PO DAILY Insulin Lispro [humaLOG Kwikpen] See Protocol SQ AC-TID Discharge Medication List Lovastatin 40 mg PO HS 08/10/14 [History] Metoprolol Tartrate 25 mg PO BID 08/13/14 [History] Empagliflozin [Jardiance] 10 mg PO QAM 01/29/19 [History] Escitalopram [Lexapro] 10 mg PO DAILY 01/29/19 [History] Ibuprofen 800 mg PO TID 01/29/19 [History] cloNIDine HCL [Catapres] 0.1 mg PO BID 01/29/19 [History] rOPINIRole HCL [Requip] 1 mg PO TID 01/29/19 [History] Albuterol Nebulized [Ventolin Nebulized] 2.5 mg INHALATION RT-Q4H PRN 05/16/20 [History] Albuterol Sulfate [Proair Hfa] 1 - 2 puff INHALATION RT-Q6H PRN 05/16/20 [History] Fluticasone/Umeclidin/Vilanter [Trelegy Ellipta 100-62.5-25] 1 inhalation INHALATION BID 05/16/20 [History] HYDROcodone/APAP 7.5-325MG [Hunt 7.5-325] 1 tab PO QID 05/16/20 [History] Levothyroxine Sodium [Synthroid] 175 mcg PO DAILY 05/16/20 [History] Losartan [Cozaar] 50 mg PO QAM 05/16/20 [History] Omeprazole 40 mg PO DAILY 05/16/20 [History] Insulin Glargine,Hum.rec.anlog [Afshan Makennabruce] 100 units SQ BID 09/04/21 [History] Insulin Lispro [humaLOG Kwikpen] 60 unit SQ AC-TID 09/04/21 [History] Insulin Lispro [humaLOG Kwikpen] See Protocol SQ AC-TID 09/04/21 [History] Pregabalin [Lyrica] 100 mg PO TID 09/04/21 [History] Semaglutide [Rybelsus] 7 mg PO DAILY 09/04/21 [History] metFORMIN HCL [Glucophage] 1,000 mg PO DAILY 09/04/21 [History] Follow up Appointment(s)/Referral(s): Rj Haynes DO [Primary Care Provider] - 1-2 days Discharge Disposition: OTHER INSTITUTION NOT DEFINED
== END 2021-09-05 19:59 | disposition other institution (70) | DRG 871 ==
LOC: EC 06:04 → 4SSUR 10:40
PROVIDERS: ADMIT Internal Medicine; ATTEND Internal Medicine
PROC: 3E0F7SF Introduction of Other Gas into Respiratory Tract, Via Natural or Artificial Opening (ICD-10-PCS; principal; 2021-09-04)
DX: A41.9 Sepsis, unspecified organism (principal); J96.01 Acute respiratory failure with hypoxia; R65.21 Severe sepsis with septic shock; E87.2 Acidosis; J98.11 Atelectasis; L02.415 Cutaneous abscess of right lower limb; L03.115 Cellulitis of right lower limb; M86.8X7 Other osteomyelitis, ankle and foot; Z99.11 Dependence on respirator [ventilator] status; E03.9 Hypothyroidism, unspecified; Z20.822 Contact with and (suspected) exposure to COVID-19; E11.40 Type 2 diabetes mellitus with diabetic neuropathy, unspecified; E66.01 Morbid (severe) obesity due to excess calories; E11.610 Type 2 diabetes mellitus with diabetic neuropathic arthropathy; I10 Essential (primary) hypertension; J44.9 Chronic obstructive pulmonary disease, unspecified; L97.519 Non-pressure chronic ulcer of other part of right foot with unspecified severity; E11.621 Type 2 diabetes mellitus with foot ulcer; E11.69 Type 2 diabetes mellitus with other specified complication; E78.5 Hyperlipidemia, unspecified; F32.A Depression, unspecified; F41.9 Anxiety disorder, unspecified; G25.81 Restless legs syndrome; G47.33 Obstructive sleep apnea (adult) (pediatric); Z79.4 Long term (current) use of insulin; Z79.890 Hormone replacement therapy; Z79.899 Other long term (current) drug therapy; Z82.49 Family history of ischemic heart disease and other diseases of the circulatory system; Z82.5 Family history of asthma and other chronic lower respiratory diseases; Z83.3 Family history of diabetes mellitus; Z86.19 Personal history of other infectious and parasitic diseases; Z87.891 Personal history of nicotine dependence; Z88.1 Allergy status to other antibiotic agents; Z89.512 Acquired absence of left leg below knee; Z88.8 Allergy status to other drugs, medicaments and biological substances; Z88.2 Allergy status to sulfonamides; Z89.411 Acquired absence of right great toe; Z89.422 Acquired absence of other left toe(s); Z90.49 Acquired absence of other specified parts of digestive tract; Z87.01 Personal history of pneumonia (recurrent)
CPT/HCPCS: 36415; 71045; 80048; 80053; 81001; 83605; 85025; 85652; 86140; 87040; 87502; 87635; 94640; 96361; 96365; 96366; 96367; 96368; 96372; 96375; 96376; 99291

== ENCOUNTER 2022-01-11 00:17 | Emergency (ER) | payer MEDICARE, BC ==
[2022-01-11 00:36] VITALS: PULSE 89; RESP 18; TEMP 98.5
[2022-01-11 00:57] VITALS: BP 148/73
[2022-01-11] MEDS ORDERED: TRANEXAMIC ACID IN NACL,ISO-OS 1,000 MG in SALINE 1 100ML.BAG IVPB ONE (01:30)
--- NOTE | 2022-01-11 01:57 | ED ---
General Adult HPI - General Chief complaint: ENT Stated complaint: Nosebleed Time Seen by Provider: 01/11/22 00:37 Source: EMS Mode of arrival: EMS - History of Present Illness Initial comments: Patient is a 56-year-old male presenting with chief complaint of nosebleed. Nosebleed started at around 8:30 this evening, he has been applying pressure but it has not stopped. He has had 3-4 nosebleeds this week, they have each stopped on their own. Patient has had many nosebleeds in the past, he has had them cauterized by ENT several times. Denies use of blood thinners. Patient denies any headache, vision changes, lightheadedness, chest pain, shortness of breath, fever, chills, nausea, vomiting, facial pain, trauma. - Related Data Home Medications Medication Instructions Recorded Confirmed Lovastatin 40 mg PO HS 08/10/14 09/04/21 Metoprolol Tartrate 25 mg PO BID 08/13/14 09/04/21 Empagliflozin [Jardiance] 10 mg PO QAM 01/29/19 09/04/21 Escitalopram [Lexapro] 10 mg PO DAILY 01/29/19 09/04/21 Ibuprofen 800 mg PO TID 01/29/19 09/04/21 cloNIDine HCL [Catapres] 0.1 mg PO BID 01/29/19 09/04/21 rOPINIRole HCL [Requip] 1 mg PO TID 01/29/19 09/04/21 Albuterol Nebulized [Ventolin 2.5 mg INHALATION RT-Q4H PRN 05/16/20 09/04/21 Nebulized] Albuterol Sulfate [Proair Hfa] 1 - 2 puff INHALATION RT-Q6H PRN 05/16/20 2 Fluticasone/Umeclidin/Vilanter 1 inhalation INHALATION BID 05/16/20 09/04/21 [Trelegy Ellipta 100-62.5-25] HYDROcodone/APAP 7.5-325MG [[place] 1 tab PO QID 05/16/20 09/04/21 7.5-325] Levothyroxine Sodium [Synthroid] 175 mcg PO DAILY 05/16/20 09/04/21 Losartan [Cozaar] 50 mg PO QAM 05/16/20 09/04/21 Omeprazole 40 mg PO DAILY 05/16/20 09/04/21 Insulin Glargine,Hum.rec.anlog 100 units SQ BID 09/04/21 09/04/21 [Afshan Avalos] Insulin Lispro [humaLOG Kwikpen] 60 unit SQ AC-TID 09/04/21 09/04/21 Insulin Lispro [humaLOG Kwikpen] See Protocol SQ AC-TID 09/04/21 09/04/21 Pregabalin [Lyrica] 100 mg PO TID 09/04/21 09/04/21 Semaglutide [Rybelsus] 7 mg PO DAILY 09/04/21 09/04/21 metFORMIN HCL [Glucophage] 1,000 mg PO DAILY 09/04/21 09/04/21 Allergies Allergy/AdvReac Type Severity Reaction Status Date / Time ramipril AdvReac Severe Cough Verified 09/04/21 09:15 sulfamethoxazole AdvReac Severe Nausea, Verified 09/04/21 09:15 [From Bactrim] Dizziness, Headaches trimethoprim [From Bactrim] AdvReac Severe Nausea, Verified 09/04/21 09:15 Dizziness, Headaches vancomycin AdvReac Septic Verified 09/04/21 09:15 Shock Review of Systems ROS Statement: Those systems with pertinent positive or pertinent negative responses have been documented in the HPI. ROS Other: All systems not noted in ROS Statement are negative. 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 No CPAP use. Restless Leg Syndrome. SOB. Uses scooter if going long distances. Cellulitis left leg. Hx back fracture 2008, wore brace. History of Any Multi-Drug Resistant Organisms: MRSA Date of last positivie culture/infection: 07/2014 MDRO Source:: RT FOOT Past Surgical History: Cholecystectomy, Ear Surgery, Hernia Repair, Orthopedic Surgery, Tonsillectomy Additional Past Surgical History / Comment(s): MULTIPLE I&D LEFT FOOT, vasectomy, rhinoplasty, tendon surgery right wrist, amputation of right great toe and left foot, tubes in ears as a child. Past Anesthesia/Blood Transfusion Reactions: No Reported Reaction Additional Past Anesthesia/Blood Transfusion Reaction / Comment(s): Slow to wake up X1. Past Psychological History: Anxiety, Depression Smoking Status: Former smoker Past Alcohol Use History: Rare Past Drug Use History: None Reported - Past Family History Brother(s) Family Medical History: Deep Vein Thrombosis (DVT) Father Family Medical History: Coronary Artery Disease (CAD), Diabetes Mellitus, Renal Disease Mother Family Medical History: COPD, Diabetes Mellitus General Exam Limitations: no limitations General appearance: alert, in no apparent distress Head exam: Present: atraumatic, normocephalic, normal inspection Eye exam: Present: normal appearance, EOMI ENT exam: Present: other (Bleeding left nare, no signs of trauma.) Neck exam: Present: normal inspection Neurological exam: Present: alert, oriented X3, CN II-XII intact Psychiatric exam: Present: normal affect, normal mood Skin exam: Present: warm, dry, intact, normal color. Absent: rash Course Vital Signs 01/11/22 01/11/22 00:28 00:56 Temperature 98.5 F Pulse Rate 89 Respiratory 18 Rate Blood Pressure 193/86 148/73 O2 Sat by Pulse 97 Oximetry Medical Decision Making - Medical Decision Making Patient is a 56-year-old male presenting with chief complaint of nosebleed. This episode started around 8:30 and continued despite direct pressure. In the ER we tried 20 minutes of direct pressure, followed by a combination of 1 g TX Saturday and another 20 minutes of pressure. On reassessment bleeding has not resumed. Patient is stable for discharge with outpatient follow-up at this time. Follow-up with PCP in one to 2 days. Report back to ER with any new or worsening symptoms. Patient is discharged with nasal clamp, patient states he has Afrin at home, provided with instructions on using Afrin and nasal clamp in combination. Discussed return parameters and answered all questions. Patient conveyed verbal understanding and agreed to the plan. I discussed this case with my attending Dr. Reese. Disposition Clinical Impression: Epistaxis Disposition: HOME SELF-CARE Condition: Good Instructions (If sedation given, give patient instructions): Nosebleed (ED) Additional Instructions: Follow-up with PCP. Report back to ER with any new or worsening symptoms. Utilize the nose clamp provided for UTI today along with Afrin nasal spray at home with any future nosebleeds, apply Afrin followed by nasal clamp and keep pressure for at least 20 minutes. Is patient prescribed a controlled substance at d/c from ED?: No Referrals: Rj Haynes DO [Primary Care Provider] - 1-2 days Time of Disposition: 02:18
== END 2022-01-11 02:38 | disposition home or self-care (01) ==
LOC: EC 00:17
DX: R04.0 Epistaxis (principal); J44.9 Chronic obstructive pulmonary disease, unspecified; E11.9 Type 2 diabetes mellitus without complications; E03.9 Hypothyroidism, unspecified; E78.5 Hyperlipidemia, unspecified; I10 Essential (primary) hypertension; K21.9 Gastro-esophageal reflux disease without esophagitis; Z87.891 Personal history of nicotine dependence; Z88.8 Allergy status to other drugs, medicaments and biological substances; Z88.2 Allergy status to sulfonamides; Z88.1 Allergy status to other antibiotic agents; Z79.899 Other long term (current) drug therapy; Z79.890 Hormone replacement therapy; Z79.4 Long term (current) use of insulin; Z79.84 Long term (current) use of oral hypoglycemic drugs; Z79.51 Long term (current) use of inhaled steroids
CPT/HCPCS: 96365; 99283

== ENCOUNTER → 2022-01-22 | Outpatient (CLI) | payer BC, MEDICARE ==
[2022-01-22 23:27] LABS: INR 0.96 (0.90-1.11); Prothrombin Time 10.9 sec (9.9-11.9)
[2022-01-23 00:18] LABS: Basophils # (A) 0.03 X 10*3/uL (0.00-0.10); Basophils % (A) 0.3 %; Eosinophils # (A) 0.23 X 10*3/uL (0.04-0.35); Eosinophils % (A) 2.1 %; Immature Grans, Automated 1.4 %; Lymphocytes # (A) 1.69 X 10*3/uL (0.90-5.00); Lymphocytes % (A) 15.1 %; Monocytes # (A) 0.71 X 10*3/uL (0.20-1.00); Monocytes % (A) 6.3 %; NRBC Per 100 WBC 0.2 /100 WBCS (0.0-0.0); Neutrophils # (A) 8.38 X 10*3/uL (1.80-7.70); Neutrophils % (A) 74.8 %
[2022-01-23 00:20] LABS: HCT 22.8 % (39.6-50.0); MCH 23.8 pg (27.0-32.0); MCHC 29.4 g/dL (32.0-37.0); MCV 80.9 fL (80.0-97.0); Mean Platelet Volume 10.5 fL (9.5-12.2); Platelet Count 346 X 10*3/uL (140-440); RBC 2.82 X 10*6/uL (4.40-5.60); RDW 17.8 % (11.5-14.5)
[2022-01-23 18:01] LABS: HGB 6.7 g/dL (13.0-17.0)
== END | disposition home or self-care (01) ==
LOC: LABWHC1 15:26
PROVIDERS: ATTEND Otolaryngology
DX: R53.83 Other fatigue (principal)
CPT/HCPCS: 36415; 84443; 85025; 85610

== ENCOUNTER 2022-01-23 17:58 | Inpatient (IN) | payer MEDICARE, BC ==
--- NOTE | 2022-01-23 18:34 | ED ---
General Adult HPI - General Chief complaint: Recheck/Abnormal Lab/Rx Stated complaint: Low hemoglobin-sent by PCP Time Seen by Provider: 01/23/22 18:10 Source: patient, family, RN notes reviewed, old records reviewed Mode of arrival: wheelchair Limitations: physical limitation - History of Present Illness Initial comments: This is a 56-year-old male who presents to the emergency department complaining of a low hemoglobin. Patient states he has a history of diabetes and bilateral amputations of his legs. Patient states he has a history of nosebleeds since he was much younger but this month he's had 6 significant nosebleeds twice having had come to the emergency department. Patient states he went and saw Dr. Anne on Saturday morning he wanted lab work done and today he got a phone call saying his hemoglobin was 6.7 and needed to come to the emergency department. Patient states his stools been black. He also takes iron. He states that nosebleeds were significant but he has had similar nosebleeds in the past. Patient states over the last couple of days he has felt quite fatigued but denies any shortness of breath chest pain or palpitations. Patient denies any vomiting or diarrhea. Patient denies any history of fevers chills. - Related Data Home Medications Medication Instructions Recorded Confirmed Lovastatin 40 mg PO HS 08/10/14 09/04/21 Metoprolol Tartrate 25 mg PO BID 08/13/14 09/04/21 Empagliflozin [Jardiance] 10 mg PO QAM 01/29/19 09/04/21 Escitalopram [Lexapro] 10 mg PO DAILY 01/29/19 09/04/21 Ibuprofen 800 mg PO TID 01/29/19 09/04/21 cloNIDine HCL [Catapres] 0.1 mg PO BID 01/29/19 09/04/21 rOPINIRole HCL [Requip] 1 mg PO TID 01/29/19 09/04/21 Albuterol Nebulized [Ventolin 2.5 mg INHALATION RT-Q4H PRN 05/16/20 09/04/21 Nebulized] Albuterol Sulfate [Proair Hfa] 1 - 2 puff INHALATION RT-Q6H PRN 05/16/20 09/04/21 Fluticasone/Umeclidin/Vilanter 1 inhalation INHALATION BID 05/16/20 09/04/21 [Trelegy Ellipta 100-62.5-25] HYDROcodone/APAP 7.5-325MG [[place] 1 tab PO QID 05/16/20 09/04/21 7.5-325] Levothyroxine Sodium [Synthroid] 175 mcg PO DAILY 05/16/20 09/04/21 Losartan [Cozaar] 50 mg PO QAM 05/16/20 09/04/21 Omeprazole 40 mg PO DAILY 05/16/20 09/04/21 Insulin Glargine,Hum.rec.anlog 100 units SQ BID 09/04/21 09/04/21 [Toujeo Solostar] Insulin Lispro [humaLOG Kwikpen] 60 unit SQ AC-TID 09/04/21 09/04/21 Insulin Lispro [humaLOG Kwikpen] See Protocol SQ AC-TID 09/04/21 09/04/21 Pregabalin [Lyrica] 100 mg PO TID 09/04/21 09/04/21 Semaglutide [Rybelsus] 7 mg PO DAILY 09/04/21 09/04/21 metFORMIN HCL [Glucophage] 1,000 mg PO DAILY 09/04/21 09/04/21 Allergies Allergy/AdvReac Type Severity Reaction Status Date / Time ramipril AdvReac Severe Cough Verified 01/23/22 20:21 sulfamethoxazole AdvReac Severe Nausea, Verified 01/23/22 20:21 [From Bactrim] Dizziness, Headaches trimethoprim [From Bactrim] AdvReac Severe Nausea, Verified 01/23/22 20:21 Dizziness, Headaches vancomycin AdvReac Septic Verified 01/23/22 20:21 Shock Review of Systems ROS Statement: Those systems with pertinent positive or pertinent negative responses have been documented in the HPI. ROS Other: All systems not noted in ROS Statement are negative. 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 No CPAP use. Restless Leg Syndrom e. SOB. Uses scooter if going long distances. Cellulitis left leg. Hx back fracture 2008, wore brace. History of Any Multi-Drug Resistant Organisms: MRSA Date of last positivie culture/infection: 07/2014 MDRO Source:: RT FOOT Past Surgical History: Cholecystectomy, Ear Surgery, Hernia Repair, Orthopedic Surgery, Tonsillectomy Additional Past Surgical History / Comment(s): MULTIPLE I&D LEFT FOOT, vasectomy, rhinoplasty, tendon surgery right wrist, amputation of right great toe and left foot, tubes in ears as a child. Past Anesthesia/Blood Transfusion Reactions: No Reported Reaction Additional Past Anesthesia/Blood Transfusion Reaction / Comment(s): Slow to wake up X1. Past Psychological History: Anxiety, Depression Smoking Status: Former smoker Past Alcohol Use History: Rare Past Drug Use History: None Reported - Past Family History Brother(s) Family Medical History: Deep Vein Thrombosis (DVT) Father Family Medical History: Coronary Artery Disease (CAD), Diabetes Mellitus, Renal Disease Mother Family Medical History: COPD, Diabetes Mellitus General Exam - General Exam Comments Initial Comments: GENERAL: Patient is well-developed and well-nourished. Patient is nontoxic and well- hydrated and is in no acute distress. ENT: Neck is soft and supple. No significant lymphadenopathy is noted. Oropharynx is clear. Moist mucous membranes. Neck has full range of motion without eliciting any pain. EYES: The sclera were anicteric and conjunctiva were pink and moist. Extraocular movements were intact and pupils were equal round and reactive to light. Eyelids were unremarkable. PULMONARY: Unlabored respirations. Good breath sounds bilaterally. No audible rales rhonchi or wheezing was noted. CARDIOVASCULAR: There is a regular rate and rhythm without any murmurs gallops or rubs. ABDOMEN: Soft and nontender with normal bowel sounds. SKIN: Skin is clear with no lesions or rashes and otherwise unremarkable. NEUROLOGIC: Patient is alert and oriented x3. Cranial nerves II through XII are grossly intact. Motor and sensory are also intact. Normal speech, volume and content. Symmetrical smile. MUSCULOSKELETAL: Patient is bilateral amputations of the legs. LYMPHATICS: No significant lymphadenopathy is noted PSYCHIATRIC: Normal psychiatric evaluation. Limitations: physical limitation Course Vital Signs 01/23/22 01/23/22 01/23/22 18:08 18:37 19:52 Temperature 98.1 F 98.1 F Pulse Rate 81 79 78 Respiratory 18 20 17 Rate Blood Pressure 129/72 143/68 117/67 O2 Sat by Pulse 97 91 L 98 Oximetry Medical Decision Making - Medical Decision Making Patient's hemoglobin was 7.2 at this point time are not given the patient any packed red blood cells the patient will be admitted overnight and CBC will be monitored. Patient's guaiac was positive. I spoke with Dr. Schumacher he agreed to admit the patient admitted the patient I wrote admitting orders I consulted Dr. Ornelas - Lab Data Result diagrams: 01/23/22 18:53 01/23/22 18:53 Lab Results 01/23/22 01/23/22 01/23/22 Range/Units 18:53 18:53 18:53 WBC 12.0 H (3.8-10.6) k/uL RBC 3.02 L (4.30-5.90) m/uL Hgb 7.2 L (13.0-17.5) gm/dL Hct 23.8 L (39.0-53.0) % MCV 78.9 L (80.0-100.0) fL MCH 24.0 L (25.0-35.0) pg MCHC 30.4 L (31.0-37.0) g/dL RDW 16.7 H (11.5-15.5) % Plt Count 377 (150-450) k/uL MPV 8.1 Neutrophils % 75 % Lymphocytes % 15 % Monocytes % 6 % Eosinophils % 3 % Basophils % 0 % Neutrophils # 8.9 H (1.3-7.7) k/uL Lymphocytes # 1.8 (1.0-4.8) k/uL Monocytes # 0.7 (0-1.0) k/uL Eosinophils # 0.3 (0-0.7) k/uL Basophils # 0.0 (0-0.2) k/uL Hypochromasia Marked Anisocytosis Slight Microcytosis Slight PT 10.5 (9.0-12.0) sec INR 1.0 (<1.2) APTT 25.3 (22.0-30.0) sec Sodium 138 (137-145) mmol/L Potassium 4.2 (3.5-5.1) mmol/L Chloride 106 (98-107) mmol/L Carbon Dioxide 27 (22-30) mmol/L Anion Gap 5 mmol/L BUN 19 (9-20) mg/dL Creatinine 0.87 (0.66-1.25) mg/dL Est GFR (CKD-EPI)AfAm >90 (>60 ml/min/1.73 sqM) Est GFR (CKD-EPI)NonAf >90 (>60 ml/min/1.73 sqM) Glucose 47 L* (74-99) mg/dL POC Glucose (mg/dL) (70-110) mg/dL POC Glu Track Equipment Operator ID Calcium 8.7 (8.4-10.2) mg/dL Total Bilirubin 0.1 L (0.2-1.3) mg/dL AST 27 (17-59) U/L ALT 17 (4-49) U/L Alkaline Phosphatase 153 H (38-126) U/L Total Protein 7.3 (6.3-8.2) g/dL Albumin 3.9 (3.5-5.0) g/dL Stool Occult Blood (Negative) 01/23/22 01/23/22 Range/Units 18:53 19:34 WBC (3.8-10.6) k/uL RBC (4.30-5.90) m/uL Hgb (13.0-17.5) gm/dL Hct (39.0-53.0) % MCV (80.0-100.0) fL MCH (25.0-35.0) pg MCHC (31.0-37.0) g/dL RDW (11.5-15.5) % Plt Count (150-450) k/uL MPV Neutrophils % % Lymphocytes % % Monocytes % % Eosinophils % % Basophils % % Neutrophils # (1.3-7.7) k/uL Lymphocytes # (1.0-4.8) k/uL Monocytes # (0-1.0) k/uL Eosinophils # (0-0.7) k/uL Basophils # (0-0.2) k/uL Hypochromasia Anisocytosis Microcytosis PT (9.0-12.0) sec INR (<1.2) APTT (22.0-30.0) sec Sodium (137-145) mmol/L Potassium (3.5-5.1) mmol/L Chloride (98-107) mmol/L Carbon Dioxide (22-30) mmol/L Anion Gap mmol/L BUN (9-20) mg/dL Creatinine (0.66-1.25) mg/dL Est GFR (CKD-EPI)AfAm (>60 ml/min/1.73 sqM) Est GFR (CKD-EPI)NonAf (>60 ml/min/1.73 sqM) Glucose (74-99) mg/dL POC Glucose (mg/dL) 71 (70-110) mg/dL POC Glu Track Equipment Operator ID Kortney Salinas Calcium (8.4-10.2) mg/dL Total Bilirubin (0.2-1.3) mg/dL AST (17-59) U/L ALT (4-49) U/L Alkaline Phosphatase (38-126) U/L Total Protein (6.3-8.2) g/dL Albumin (3.5-5.0) g/dL Stool Occult Blood Positive (Negative) Disposition Clinical Impression: GI bleed, Anemia Disposition: ADMITTED IP TO THIS [facility] Referrals: Rj Haynes DO [Primary Care Provider] - 1-2 days Time of Disposition: 20:28
[2022-01-23 19:11] LABS: ALT 17 U/L (4-49); AST 27 U/L (17-59); African American GFR (CKD) >90 (>60 ml/min/1.73 sqM); Albumin 3.9 g/dL (3.5-5.0); Alkaline Phosphatase 153 U/L (38-126); Anion Gap 5 mmol/L; Blood Urea Nitrogen 19 mg/dL (9-20); Calcium 8.7 mg/dL (8.4-10.2); Carbon Dioxide 27 mmol/L (22-30); Chloride 106 mmol/L (98-107); Non-African American GFR(CKD) >90 (>60 ml/min/1.73 sqM); Potassium 4.2 mmol/L (3.5-5.1); Sodium 138 mmol/L (137-145); Total Bilirubin 0.1 mg/dL (0.2-1.3); Total Protein 7.3 g/dL (6.3-8.2)
[2022-01-23 19:12] LABS: Partial Thromboplastin Time 25.3 sec (22.0-30.0); Prothrombin Time 10.5 sec (9.0-12.0)
[2022-01-23 19:22] LABS: Glucose 47 mg/dL (74-99)
[2022-01-23 19:34] LABS: Anisocytosis Slight; Basophils % (A) 0 %; Eosinophils # (A) 0.3 k/uL (0-0.7); Eosinophils % (A) 3 %; HCT 23.8 % (39.0-53.0); HGB 7.2 gm/dL (13.0-17.5); Hypochromasia Marked; Lymphocytes # (A) 1.8 k/uL (1.0-4.8); Lymphocytes % (A) 15 %; MCHC 30.4 g/dL (31.0-37.0); MCV 78.9 fL (80.0-100.0); Mean Platelet Volume 8.1; Microcytosis Slight; Monocytes # (A) 0.7 k/uL (0-1.0); Monocytes % (A) 6 %; Neutrophils # (A) 8.9 k/uL (1.3-7.7); Neutrophils % (A) 75 %; Platelet Count 377 k/uL (150-450); RBC 3.02 m/uL (4.30-5.90); RDW 16.7 % (11.5-15.5)
[2022-01-23 19:37] LABS: Glucose,Whole Blood 71 mg/dL (70-110)
[2022-01-23] MEDS ORDERED: HYDROcodone/APAP 7.5-325MG 1 EACH TAB PO ONE (19:52)
[2022-01-23] MEDS ORDERED: SODIUM CHLORIDE 0.9% 1,000 ML IV ONE (20:28)
[2022-01-23 21:36] LABS: Glucose,Whole Blood 89 mg/dL (70-110)
[2022-01-24 06:22] LABS: Anisocytosis Slight; Basophils % (A) 0 %; Eosinophils # (A) 0.3 k/uL (0-0.7); Eosinophils % (A) 3 %; HCT 24.1 % (39.0-53.0); HGB 7.2 gm/dL (13.0-17.5); Hypochromasia Marked; Lymphocytes # (A) 1.4 k/uL (1.0-4.8); Lymphocytes % (A) 16 %; MCH 23.9 pg (25.0-35.0); MCV 79.7 fL (80.0-100.0); Mean Platelet Volume 8.2; Microcytosis Slight; Monocytes # (A) 0.4 k/uL (0-1.0); Monocytes % (A) 5 %; Neutrophils # (A) 6.6 k/uL (1.3-7.7); Neutrophils % (A) 75 %; Platelet Count 360 k/uL (150-450); RBC 3.02 m/uL (4.30-5.90); RDW 16.8 % (11.5-15.5); WBC 8.9 k/uL (3.8-10.6)
[2022-01-24] MEDS ORDERED: OXYMETAZOLINE 0.05% NASL SPRAY 1 SPRAY BOTTLE EA NOSTRIL PRN (07:22)
[2022-01-24] MEDS ORDERED: MUPIROCIN 2% OINT 22 GM TUBE NASAL PRN (07:22)
[2022-01-24] MEDS ORDERED: ALBUTEROL HFA INHALER INHALATION PRN (07:22)
[2022-01-24] MEDS ORDERED: ALBUTEROL NEBULIZED 2.5 MG/3 ML INHALATION PRN (07:22)
[2022-01-24 08:34] LABS: Glucose,Whole Blood 132 mg/dL (70-110)
[2022-01-24] MEDS: AMOXIC-POT CLAV 875-125MG 1 EACH TAB PO SCH ×2 (08:44→20:35)
[2022-01-24] MEDS: HYDROcodone/APAP 7.5-325MG 1 EACH TAB PO SCH ×4 (08:45→21:35)
[2022-01-24] MEDS: ASPIRIN 81 MG PO SCH (08:45)
[2022-01-24] MEDS: FERROUS SULFATE 325 MG TAB PO SCH (08:45)
[2022-01-24] MEDS: LEVOTHYROXINE 88 MCG TAB PO SCH (08:47)
[2022-01-24] MEDS: PREGABALIN 100 MG CAP PO SCH ×3 (08:48→21:35)
[2022-01-24] MEDS: METOPROLOL TARTRATE 25 MG TAB PO SCH ×2 (08:48→20:35)
[2022-01-24] MEDS: LOSARTAN 50 MG TAB PO SCH (08:48)
[2022-01-24] MEDS: PANTOPRAZOLE 40 MG TABLET PO SCH (08:48)
[2022-01-24] MEDS: INSULIN DETEMIR (LEVEMIR) 100 UNIT/ML SYR SQ SCH ×2 (09:50→20:35)
--- NOTE | 2022-01-24 09:54 | P.CONS ---
History of Present Illness - Reason for Consult Consult date: 01/24/22 GI bleed Requesting physician: Deshawn Kulkarni - Chief Complaint Anemia - History of Present Illness This a pleasant 56-year-old white male with a past medical history of diabetes mellitus and bilateral lower extremity amputee patients. Patient has recently been seen and not out of the hospital with nosebleeds. Patient states he's had 6 really bad nosebleeds within the last 3 weeks. He states his last one was 5 days ago this past Saturday. States he has been hospitalized twice for his nosebleeds. Has had to have it cauterized. He denies any anticoagulation. He was on following up with Dr. Sandoval and was having blood work done, they were concerned because he had a hemoglobin of 6.7 and sent him to the emergency department for further evaluation. On admission he had a hemoglobin of 7.2, stool occult positive. He states that he has been started on iron. He did have a dark stool yesterday morning but then later throughout the day they were normal. He denies any history of GI bleed. States he has a remote history of acute ulcer years ago which he underwent an EGD. He denies any nausea vomiting, or abdominal pain. His last hospitalization was done at [facility] where he was cauterized. His last colonoscopy was done in May [address] Chauhan significant for colon polyp status post polypectomy. Review of Systems REVIEW OF SYSTEMS: CARDIOPULMONARY: No chest pain or shortness of breath. Gastrointestinal: No epigastric or abdominal pain. No nausea or vomiting. No hematemesis, coffee-ground emesis. No rectal bleeding, or melena. GENITOURINARY: No dysuria or hematuria. MUSCULOSKELETAL: Reports normal range of motion. Bilateral lower extremity [id number] amputation. SKIN: No rashes. No jaundice. ENDOCRINE: No chills, fevers. No excessive weight gain or loss. No polydipsia or polyuria. PSYCHIATRIC: Unremarkable. NEUROLOGY: No change in mental status. Denies dizziness, headache. ENT: Vision unremarkable. Significant nosebleeds, 6 within the last 3 weeks. Has had to have his nose cauterized 2. CONSTITUTIONAL: No recent weight loss. No fever, chills, night sweats. 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 No CPAP use. Restless Leg Syndrome. SOB. Uses scooter if going long distances. Cellulitis left leg. Hx back fracture 2008, wore brace. History of Any Multi-Drug Resistant Organisms: MRSA Year Discovered:: 07/2014 MDRO Source:: RT FOOT Past Surgical History: Cholecystectomy, Ear Surgery, Hernia Repair, Orthopedic Surgery, Tonsillectomy Additional Past Surgical History / Comment(s): MULTIPLE I&D LEFT FOOT, vasectomy, rhinoplasty, tendon surgery right wrist, amputation of right great toe and left foot, tubes in ears as a child. Past Anesthesia/Blood Transfusion Reactions: No Reported Reaction Additional Past Anesthesia/Blood Transfusion Reaction / Comm: Slow to wake up X1. Past Psychological History: Anxiety, Depression Smoking Status: Former smoker Past Alcohol Use History: Rare Past Drug Use History: None Reported - Past Family History Brother(s) Family Medical History: Deep Vein Thrombosis (DVT) Father Family Medical History: Coronary Artery Disease (CAD), Diabetes Mellitus, Renal Disease Mother Family Medical History: COPD, Diabetes Mellitus Medications and Allergies Home Medications Medication Instructions Recorded Confirmed Type Lovastatin 40 mg PO HS 08/10/14 01/23/22 History Metoprolol Tartrate 25 mg PO BID 08/13/14 01/23/22 History Empagliflozin [Jardiance] 10 mg PO DAILY 01/29/19 01/23/22 History Escitalopram [Lexapro] 10 mg PO HS 01/29/19 01/23/22 History rOPINIRole HCL [Requip] 1 mg PO TID 01/29/19 01/23/22 History Albuterol Nebulized [Ventolin 2.5 mg INHALATION RT-Q4H PRN 05/16/20 01/23/22 History Nebulized] Albuterol Sulfate [Proair Hfa] 1 - 2 puff INHALATION RT-Q6H PRN 05/16/20 01/23/22 History Fluticasone/Umeclidin/Vilanter 1 puff INHALATION RT-DAILY 05/16/20 01/23/22 History [Trelegy Ellipta 100-62.5-25] HYDROcodone/APAP 7.5-325MG [[place] 1 tab PO QID 05/16/20 01/23/22 History 7.5-325] Levothyroxine Sodium [Synthroid] 175 mcg PO DAILY 05/16/20 01/23/22 History Losartan [Cozaar] 50 mg PO DAILY 05/16/20 01/23/22 History Omeprazole 40 mg PO DAILY 05/16/20 01/23/22 History Insulin Lispro [humaLOG Kwikpen] 70 unit SQ TID-W/MEALS 09/04/21 01/23/22 History Insulin Lispro [humaLOG Kwikpen] See Protocol SQ TID-W/MEALS PRN 09/04/21 01/23/22 History Pregabalin [Lyrica] 100 mg PO TID 09/04/21 01/23/22 History Semaglutide [Rybelsus] 7 mg PO DAILY 09/04/21 01/23/22 History Amoxic-Pot Clav 875-125Mg 1 tab PO BID 01/23/22 01/23/22 History [Augmentin 875-125] Aspirin EC [Ecotrin Low Dose] 81 mg PO DAILY 01/23/22 01/23/22 History Iferex 150mg Cap 150 mg PO DAILY 01/23/22 01/23/22 History Insulin Glargine,Hum.rec.anlog 100 units SQ BID 01/23/22 01/23/22 History [Afshan Avalos] Mupirocin 2% Oint [Bactroban 2% 1 applic NASAL TID PRN 01/23/22 01/23/22 History Oint] Oxymetazoline 0.05% Nasl [place] 1 spray EA NOSTRIL QID PRN 01/23/22 01/23/22 History [Afrin 0.05% Nasal [place]] Sodium Chloride [Saline Mist] 1 spray EA NOSTRIL Q4H 01/23/22 01/23/22 History rOPINIRole HCL [Requip] 2 mg PO TID 01/23/22 01/23/22 History Allergies Allergy/AdvReac Type Severity Reaction Status Date / Time ramipril AdvReac Severe Cough Verified 01/23/22 20:21 sulfamethoxazole AdvReac Severe Nausea, Verified 01/23/22 20:21 [From Bactrim] Dizziness, Headaches trimethoprim [From Bactrim] AdvReac Severe Nausea, Verified 01/23/22 20:21 Dizziness, Headaches vancomycin AdvReac Septic Verified 01/23/22 20:21 Shock Physical Exam Vitals: Vital Signs Temp Pulse Resp BP Pulse Ox 01/24/22 06:49 97.9 F 72 16 146/82 95 01/24/22 04:00 72 14 162/65 92 L 01/24/22 00:00 97.7 F 70 17 129/66 94 L 01/23/22 21:44 73 16 136/86 98 01/23/22 19:52 98.1 F 78 17 117/67 98 01/23/22 18:37 79 20 143/68 91 L 01/23/22 18:08 98.1 F 81 18 129/72 97 Intake and Output 01/23/22 01/24/22 01/24/22 22:59 06:59 14:59 Output Total 980 Balance -980 Output: Urine 980 Other: Weight 167.829 kg General appearance: The patient is alert, oriented, appears in no acute distress. Morbidly obese. HET: Head is normocephalic and atraumatic. Conjunctiva pink. Sclera anicteric. Neck: Supple without lymphadenopathy. Trachea midline. Heart: S1 S2. Regular rate and rhythm. Lungs: Clear to auscultation. Abdomen: Soft, nontender, nondistended with bowel sounds. No guarding or rigidity. Skin: No rashes. No jaundice. Extremities: Bilateral lower extremity mjopg-rxi-hawi amputations. Neurological: No focal deficits. Alert and oriented x3. Results CBC & Chem 7: 01/24/22 05:37 01/23/22 18:53 Labs: Abnormal Lab Results - Last 24 Hours (Table) 01/23/22 01/23/22 01/24/22 Range/Units 18:53 18:53 05:37 WBC 12.0 H (3.8-10.6) k/uL RBC 3.02 L 3.02 L (4.30-5.90) m/uL Hgb 7.2 L 7.2 L (13.0-17.5) gm/dL Hct 23.8 L 24.1 L (39.0-53.0) % MCV 78.9 L 79.7 L (80.0-100.0) fL MCH 24.0 L 23.9 L (25.0-35.0) pg MCHC 30.4 L 30.0 L (31.0-37.0) g/dL RDW 16.7 H 16.8 H (11.5-15.5) % Neutrophils # 8.9 H (1.3-7.7) k/uL Glucose 47 L* (74-99) mg/dL Total Bilirubin 0.1 L (0.2-1.3) mg/dL Alkaline Phosphatase 153 H (38-126) U/L Assessment and Plan (1) Anemia Narrative/Plan: 56-year-old male who was told to come to the emergency department for outpatient blood work showing a hemoglobin of 6.7. Patient has been having frequent nos ebleeds he states 6 significant nosebleeds in the last 3 weeks duration. Last one being 5 days ago on Saturday. He's required cauterization twice now and hospitalization. He is been following with Dr. Sandoval who was working him up and had low blood count and was told to come to the emergency department for further evaluation. Patient does not have any signs or symptoms of GI blood loss. He did have a positive occult stool however that's likely residual from his nosebleeds. He is not on any anticoagulation or NSAIDs. No abdominal pain nausea or vomiting. At this time does not appear anemia is likely from GI blood loss. Patient's labs are consistent with a microcytic anemia, BUN is normal. Again likely dealing with iron deficiency anemia related to significant epistaxis. Recommend continued follow-up with ENT. No plans on endoscopic evaluation. Current Visit: Yes Status: Acute Code(s): D64.9 - ANEMIA, UNSPECIFIED SNOMED Code(s): 302592340 (2) Epistaxis Current Visit: No Status: Acute Code(s): R04.0 - EPISTAXIS SNOMED Code(s): 758356193 (3) Occult blood positive stool Current Visit: Yes Status: Acute Code(s): R19.5 - OTHER FECAL ABNORMALITIES SNOMED Code(s): 27730138 (4) Diabetes mellitus Current Visit: No Status: Chronic Code(s): E11.9 - TYPE 2 DIABETES MELLITUS WITHOUT COMPLICATIONS SNOMED Code(s): 29726748 (5) Morbid obesity with BMI of 45.0-49.9, adult Current Visit: No Status: Chronic Code(s): E66.01 - MORBID (SEVERE) OBESITY DUE TO EXCESS CALORIES; Z68.42 - BODY MASS INDEX [BMI] 45.0-49.9, ADULT SNOMED Code(s): 190810984 Plan: 1. Continue symptomatic and supportive care 2. Patient may have consistent carbohydrate diet 3. Daily CBC, transfuse for hemoglobin less than 7 4. Continue Protonix 40 mg daily 5. No plans on endoscopic evaluation. Anemia likely related to recent significant nosebleeds. Occult stool likely related to residual blood loss from epistaxis. 6. Continue with follow-up and recommendations from ENT. Thank you for this consultation, we'll continue to follow. Dr. Casey Diaz I agree with the dictator's note, documented as a scribe by Luly Waddell.
[2022-01-24] MEDS: Semaglutide [Rybelsus] PO SCH (10:23)
[2022-01-24] MEDS: SYMBICORT 80-4.5 MCG INHALER INHALATION SCH ×2 (10:52→19:38)
[2022-01-24] MEDS: IPRATROPIUM 0.5 MG/2.5 ML NEBU INHALATION SCH ×4 (10:53→19:38)
[2022-01-24 11:37] LABS: Glucose,Whole Blood 198 mg/dL (70-110)
[2022-01-24] MEDS: SODIUM CHLORIDE 0.65% NASAL SPRAY 44 ML BTL INTRANASAL SCH ×4 (12:24→21:36)
[2022-01-24] MEDS: INSULIN ASPART (NovoLOG) 100 UNIT/ML VIAL SQ SCH ×2 (12:25→17:38)
--- NOTE | 2022-01-24 15:22 | P.HPIM ---
History of Present Illness H&P Date: 01/24/22 Chief Complaint: Low hemoglobin This is a pleasant 56-year-old patient, follows with Dr. Haynes. Chronic stable medical conditions include COPD, diabetes, GERD, hypertension, hyperlipidemia, obstructive sleep apnea, hypothyroid. Patient had left below- knee amputation in 2019 and right below-knee amputation in August of this year. Her surgeon is from [place]. He has a wound on the left stump. And his does home dressing. Patient's had nose bleeding on his life. 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 Subsequently started having more bleeding. In the past he's had rhinoplasty and at follow-up and was to [place]. About a month ago he had another bleeding when he was at [facility] had to be cauterized and nasal packing was done. Mini-Mental me of the 3 episodes. Last week again he had multiple episodes of epistaxis. He did see Dr. Sandoval from ENT at this point wanted to hold off doing anything. In the meantime patient's hemoglobin dropped yesterday. ER hemoglobin was 7.2. Patient last epistaxis was on Saturday about 5 days ago. But patient yesterday also notices dock stools. Hence concerned about GI bleed and was admitted. GI consulted. Denies any abdominal pain. Does take baby aspirin. Review of systems: GEN.: None EYES: None HEENT: As above NECK: None RESPIRATORY: None CARDIOVASCULAR: None GASTROINTESTINAL: None GENITOURINARY: None MUSCULOSKELETAL: None LYMPHATICS: None HEMATOLOGICAL: None PSYCHIATRY: None NEUROLOGICAL: None Past medical history to include: COPD, diabetes, GERD, hypertension, hyperlipidemia, osteoarthritis, obstructive sleep apnea, hypothyroid, bilateral Charcot joints, history of being on the ventilator and tracheostomy to and PEG tube. In 2018. Restless leg syndrome. Left below-knee amputation wound. Social history: . Started smoking at age of 12 stopped in 1984. Less than a pack a day. Alcohol rarely. Family history: CAD, diabetes, kidney disease Physical examination: VITAL SIGNS: 97.9, 72, 16, 146-82, 95% room air GENERAL: BMI 48. Point, sitting at edge of bed awake. EYES: Pupils equal. Conjunctiva normal. HEENT: External appearance of nose and ears normal, oral cavity grossly normal. Area of scarring on the medial wall of the left nostril.. NECK: JVD not raised; masses not palpable. HEART: First and second heart sounds are normal; no edema. LUNGS: Respiratory rate normal; clear to auscultation. ABDOMEN: Soft, nontender, liver spleen not palpable, no masses palpable. PSYCH: Alert and oriented x3; mood and affect normal. MUSCULOSKELETAL:No Clubbing/cyanosis;muscles-grossly intact. Bilateral below- knee amputation. Left stump wound with a dressing in place NEUROLOGICAL: Cranial nerves grossly intact; no facial asymmetry, power and s ensation grossly intact. LYMPHATICS: No lymph nodes palpable in the axilla and neck INVESTIGATIONS, reviewed in the clinical context: White count 8.9 and he will and 7.2 platelets 360 Admission labs: White count 12.7.2 platelets 377 potassium 4.2 creatinine 0.87 Stool occult blood positive Assessment and plan: -Possible GI bleed with patient having dock stools. Patient had significant epistaxis 5 days prior to that. But only notices black stool yesterday. Does take Padmini. GI consulted. Follow H&H -Bilateral below-knee amputation. -Left below knee amputation stump wound. Continue local care as at home. -Diabetes mellitus type 2, chronically on insulin Resume reduced dose of insulin. Sliding scale. -COPD due to previous smoker Continue inhalers -Depression and anxiety Lexapro -Hypothyroid Synthroid -Essential hypertension Cozaar, Lopressor -Hyperlipidemia Lovastatin -GERD Omeprazole -Peripheral neuropathy Code -Restless leg syndrome Requip -Recurrent epistaxis with prior intervention including rhinoplasty. Patient to continue using nasal mist. Told not to blow his nose. -Acute blood loss anemia with hemoglobin stable at 7.2. Blood pressure is good. No indication for blood transfusion. Home medications resumed. Decreased dose of insulin. Follow Accu-Cheks. Follow H&H. Hold aspirin. Nasal care discussed. GI consulted. 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 No CPAP use. Restless Leg Syndrome. SOB. Uses scooter if going long distances. Cellulitis left leg. Hx back fracture 2008, wore brace. History of Any Multi-Drug Resistant Organisms: MRSA Date of last positivie culture/infection: 07/2014 MDRO Source:: RT FOOT Past Surgical History: Cholecystectomy, Ear Surgery, Hernia Repair, Orthopedic Surgery, Tonsillectomy Additional Past Surgical History / Comment(s): MULTIPLE I&D LEFT FOOT, vasectomy, rhinoplasty, tendon surgery right wrist, amputation of right great toe and left foot, tubes in ears as a child. Past Anesthesia/Blood Transfusion Reactions: No Reported Reaction Additional Past Anesthesia/Blood Transfusion Reaction / Comment(s): Slow to wake up X1. Smoking Status: Former smoker - Past Family History Brother(s) Family Medical History: Deep Vein Thrombosis (DVT) Father Family Medical History: Coronary Artery Disease (CAD), Diabetes Mellitus, Renal Disease Mother Family Medical History: COPD, Diabetes Mellitus Medications and Allergies Home Medications Medication Instructions Recorded Confirmed Type Lovastatin 40 mg PO HS 08/10/14 01/23/22 History Metoprolol Tartrate 25 mg PO BID 08/13/14 01/23/22 History Empagliflozin [Jardiance] 10 mg PO DAILY 01/29/19 01/23/22 History Escitalopram [Lexapro] 10 mg PO HS 01/29/19 01/23/22 History rOPINIRole HCL [Requip] 1 mg PO TID 01/29/19 01/23/22 History Albuterol Nebulized [Ventolin 2.5 mg INHALATION RT-Q4H PRN 05/16/20 01/23/22 History Nebulized] Albuterol Sulfate [Proair Hfa] 1 - 2 puff INHALATION RT-Q6H PRN 05/16/20 01/23/22 History Fluticasone/Umeclidin/V[place]an[place] 1 puff INHALATION RT-DAILY 05/16/20 01/23/22 History [Trelegy Ellipta 100-62.5-25] HYDROcodone/APAP 7.5-325MG [[place] 1 tab PO QID 05/16/20 01/23/22 History 7.5-325] Levothyroxine Sodium [Synthroid] 175 mcg PO DAILY 05/16/20 01/23/22 History Losartan [Cozaar] 50 mg PO DAILY 05/16/20 01/23/22 History Omeprazole 40 mg PO DAILY 05/16/20 01/23/22 History Insulin Lispro [humaLOG Kwikpen] 70 unit SQ TID-W/MEALS 09/04/21 01/23/22 History Insulin Lispro [humaLOG Kwikpen] See Protocol SQ TID-W/MEALS PRN 09/04/21 01/23/22 History Pregabalin [Lyrica] 100 mg PO TID 09/04/21 01/23/22 History Semaglutide [Rybelsus] 7 mg PO DAILY 09/04/21 01/23/22 History Amoxic-Pot Clav 875-125Mg 1 tab PO BID 01/23/22 01/23/22 History [Augmentin 875-125] Aspirin EC [Ecotrin Low Dose] 81 mg PO DAILY 01/23/22 01/23/22 History Iferex 150mg Cap 150 mg PO DAILY 01/23/22 01/23/22 History Insulin Glargine,Hum.rec.anlog 100 units SQ BID 01/23/22 01/23/22 History [Afshan Avalos] Mupirocin 2% Oint [Bactroban 2% 1 applic NASAL TID PRN 01/23/22 01/23/22 History Oint] Oxymetazoline 0.05% Nasl [place] 1 spray EA NOSTRIL QID PRN 01/23/22 01/23/22 History [Afrin 0.05% Nasal [place]] Sodium Chloride [Saline Mist] 1 spray EA NOSTRIL Q4H 01/23/22 01/23/22 History rOPINIRole HCL [Requip] 2 mg PO TID 01/23/22 01/23/22 History Allergies Allergy/AdvReac Type Severity Reaction Status Date / Time ramipril AdvReac Severe Cough Verified 01/23/22 20:21 sulfamethoxazole AdvReac Severe Nausea, Verified 01/23/22 20:21 [From Bactrim] Dizziness, Headaches trimethoprim [From Bactrim] AdvReac Severe Nausea, Verified 01/23/22 20:21 Dizziness, Headaches vancomycin AdvReac Septic Verified 01/23/22 20:21 Shock Physical Exam Vitals: Vital Signs Temp Pulse Pulse Resp BP BP Pulse Ox 01/24/22 09:21 98.2 F 79 18 142/74 93 L 01/24/22 08:28 80 20 115/68 98 01/24/22 06:49 97.9 F 72 16 146/82 95 01/24/22 04:00 72 14 162/65 92 L 01/24/22 00:00 97.7 F 70 17 129/66 94 L 01/23/22 21:44 73 16 136/86 98 01/23/22 19:52 98.1 F 78 17 117/67 98 01/23/22 18:37 79 20 143/68 91 L 01/23/22 18:08 98.1 F 81 18 129/72 97 Intake and Output 01/23/22 01/24/22 01/24/22 22:59 06:59 14:59 Output Total 980 Balance -980 Output: Urine 980 Other: Weight 167.829 kg 167.829 kg Results CBC & Chem 7: 01/24/22 05:37 01/23/22 18:53 Labs: Abnormal Lab Results - Last 24 Hours (Table) 01/23/22 01/23/22 01/24/22 Range/Units 18:53 18:53 05:37 WBC 12.0 H (3.8-10.6) k/uL RBC 3.02 L 3.02 L (4.30-5.90) m/uL Hgb 7.2 L 7.2 L (13.0-17.5) gm/dL Hct 23.8 L 24.1 L (39.0-53.0) % MCV 78.9 L 79.7 L (80.0-100.0) fL MCH 24.0 L 23.9 L (25.0-35.0) pg MCHC 30.4 L 30.0 L (31.0-37.0) g/dL RDW 16.7 H 16.8 H (11.5-15.5) % Neutrophils # 8.9 H (1.3-7.7) k/uL Glucose 47 L* (74-99) mg/dL POC Glucose (mg/dL) (70-110) mg/dL Total Bilirubin 0.1 L (0.2-1.3) mg/dL Alkaline Phosphatase 153 H (38-126) U/L 01/24/22 Range/Units 08:32 WBC (3.8-10.6) k/uL RBC (4.30-5.90) m/uL Hgb (13.0-17.5) gm/dL Hct (39.0-53.0) % MCV (80.0-100.0) fL MCH (25.0-35.0) pg MCHC (31.0-37.0) g/dL RDW (11.5-15.5) % Neutrophils # (1.3-7.7) k/uL Glucose (74-99) mg/dL POC Glucose (mg/dL) 132 H (70-110) mg/dL Total Bilirubin (0.2-1.3) mg/dL Alkaline Phosphatase (38-126) U/L Thrombosis Risk Factor Assmnt - Choose All That Apply Any of the Below Risk Factors Present?: Yes Each Factor Represents 1 point: Abnormal pulmonary function (COPD), Age 41-60 years, Obesity (BMI >25) Other Risk Factors: Yes Each Risk Factor Represents 3 Points: Family history of DVT/PE Other congenital or acquired thrombophilia - If yes, enter type in comment: No Thrombosis Risk Factor Assessment Total Risk Factor Score: 6 Thrombosis Risk Factor Assessment Level: High Risk
[2022-01-24 16:56] LABS: Glucose,Whole Blood 125 mg/dL (70-110)
[2022-01-24 20:44] LABS: Glucose,Whole Blood 93 mg/dL (70-110)
[2022-01-24] MEDS ORDERED: ESCITALOPRAM 10 MG TAB PO SCH (21:00)
[2022-01-24] MEDS ORDERED: ATORVASTATIN 10 MG TAB PO SCH (21:00)
[2022-01-25] MEDS: LEVOTHYROXINE 88 MCG TAB PO SCH (04:11)
[2022-01-25] MEDS: SODIUM CHLORIDE 0.65% NASAL SPRAY 44 ML BTL INTRANASAL SCH ×2 (04:12→09:36)
[2022-01-25 06:56] LABS: Glucose,Whole Blood 81 mg/dL (70-110)
[2022-01-25 07:15] VITALS: BP 130/86; PULSE 76; RESP 15; TEMP 98.6
[2022-01-25] MEDS: SYMBICORT 80-4.5 MCG INHALER INHALATION SCH (07:37)
[2022-01-25] MEDS: IPRATROPIUM 0.5 MG/2.5 ML NEBU INHALATION SCH ×2 (07:38→11:19)
[2022-01-25] MEDS: ASPIRIN 81 MG PO SCH (09:09)
[2022-01-25] MEDS: AMOXIC-POT CLAV 875-125MG 1 EACH TAB PO SCH (09:09)
[2022-01-25] MEDS: HYDROcodone/APAP 7.5-325MG 1 EACH TAB PO SCH (09:09)
[2022-01-25] MEDS: INSULIN DETEMIR (LEVEMIR) 100 UNIT/ML SYR SQ SCH (09:10)
[2022-01-25] MEDS: PANTOPRAZOLE 40 MG TABLET PO SCH (09:10)
[2022-01-25] MEDS: FERROUS SULFATE 325 MG TAB PO SCH (09:10)
[2022-01-25] MEDS: PREGABALIN 100 MG CAP PO SCH (09:10)
[2022-01-25] MEDS: LOSARTAN 50 MG TAB PO SCH (09:10)
[2022-01-25] MEDS: METOPROLOL TARTRATE 25 MG TAB PO SCH (09:10)
[2022-01-25] MEDS: INSULIN ASPART (NovoLOG) 100 UNIT/ML VIAL SQ SCH (09:31)
[2022-01-25 09:32] LABS: African American GFR (CKD) >90 (>60 ml/min/1.73 sqM); Anion Gap 6 mmol/L; Blood Urea Nitrogen 14 mg/dL (9-20); Calcium 8.6 mg/dL (8.4-10.2); Carbon Dioxide 26 mmol/L (22-30); Chloride 105 mmol/L (98-107); Glucose 117 mg/dL (74-99); Non-African American GFR(CKD) >90 (>60 ml/min/1.73 sqM); Potassium 4.4 mmol/L (3.5-5.1); Sodium 137 mmol/L (137-145)
[2022-01-25] MEDS: Semaglutide [Rybelsus] PO SCH (09:32)
[2022-01-25 09:34] LABS: Anisocytosis Slight; HCT 25.4 % (39.0-53.0); HGB 7.6 gm/dL (13.0-17.5); Hypochromasia Marked; MCHC 29.8 g/dL (31.0-37.0); MCV 80.6 fL (80.0-100.0); Mean Platelet Volume 8.7; Microcytosis Slight; Platelet Count 388 k/uL (150-450); Poikilocytosis Slight; RBC 3.15 m/uL (4.30-5.90); RDW 16.9 % (11.5-15.5); WBC 9.2 k/uL (3.8-10.6)
--- NOTE | 2022-01-25 11:05 | P.PN ---
Subjective Progress Note Date: 01/25/22 Principal diagnosis: Anemia This a pleasant 56-year-old white male with a past medical history of diabetes mellitus and bilateral lower extremity amputee patients. Patient has recently been seen and not out of the hospital with nosebleeds. Patient states he's had 6 really bad nosebleeds within the last 3 weeks. He states his last one was 5 days ago this past Saturday. States he has been hospitalized twice for his nosebleeds. Has had to have it cauterized. He denies any anticoagulation. He was on following up with Dr. Sandoval and was having blood work done, they were concerned because he had a hemoglobin of 6.7 and sent him to the emergency department for further evaluation. On admission he had a hemoglobin of 7.2, stool occult positive. He states that he has been started on iron. He did have a dark stool yesterday morning but then later throughout the day they were normal. He denies any history of GI bleed. States he has a remote history of acute ulcer years ago which he underwent an EGD. He denies any nausea vomiting, or abdominal pain. His last hospitalization was done at [facility] where he was cauterized. His last colonoscopy was done in May [address] Chauhan significant for colon polyp status post polypectomy. 01/25/2022: Patient seen and examined today as a follow-up for anemia, questionable GI bleed. Patient states he is feeling really good today. No abdominal pain, nausea or vomiting. No nosebleeds. He denies any bowel movements, no rectal bleeding. Hemoglobin improved to 7.7 Objective - Vital Signs Vital signs: Vital Signs Temp 98.6 F 01/25/22 07:14 Pulse 76 01/25/22 07:14 Resp 15 01/25/22 07:14 BP 130/86 01/25/22 07:14 Pulse Ox 97 01/25/22 04:09 FiO2 Intake & Output 01/24/22 01/25/22 01/25/22 18:59 06:59 18:59 Intake Total 1600 500 Output Total 800 700 Balance 800 -200 Weight 167.829 kg Intake: Oral 1600 500 Output: Urine 800 700 Other: Voiding Method Urinal Urinal - Exam General appearance: The patient is alert, oriented, appears in no acute distress. Morbidly obese. HET: Head is normocephalic and atraumatic. Conjunctiva pink. Sclera anicteric. Neck: Supple without lymphadenopathy. Abdomen: Soft, nontender, nondistended with bowel sounds. No guarding or rigidity. Extremities: Normal skin color and turgor. Bilateral [id number] amputations. Skin: No rashes, no jaundice Neurological: No focal deficits. Alert and oriented x 3. - Labs CBC & Chem 7: 01/25/22 08:28 01/25/22 08:28 Labs: Abnormal Lab Results - Last 24 Hours (Table) 01/24/22 01/24/22 01/25/22 Range/Units 11:30 16:52 08:28 RBC 3.15 L (4.30-5.90) m/uL Hgb 7.6 L (13.0-17.5) gm/dL Hct 25.4 L (39.0-53.0) % MCH 24.0 L (25.0-35.0) pg MCHC 29.8 L (31.0-37.0) g/dL RDW 16.9 H (11.5-15.5) % Glucose (74-99) mg/dL POC Glucose (mg/dL) 198 H 125 H (70-110) mg/dL 01/25/22 Range/Units 08:28 RBC (4.30-5.90) m/uL Hgb (13.0-17.5) gm/dL Hct (39.0-53.0) % MCH (25.0-35.0) pg MCHC (31.0-37.0) g/dL RDW (11.5-15.5) % Glucose 117 H (74-99) mg/dL POC Glucose (mg/dL) (70-110) mg/dL Assessment and Plan (1) Anemia Narrative/Plan: 56-year-old male who was told to come to the emergency department for outpatient blood work showing a hemoglobin of 6.7. Patient has been having frequent nosebleeds he states 6 significant nosebleeds in the last 3 weeks duration. Last one being 5 days ago on Saturday. He's required cauterization twice now and hospitalization. He is been following with Dr. Sandoval who was working him up and had low blood count and was told to come to the emergency department for further evaluation. Patient does not have any signs or symptoms of GI blood loss. He did have a positive occult stool however that's likely residual from his nosebleeds. He is not on any anticoagulation or NSAIDs. No abdominal pain nausea or vomiting. At this time does not appear anemia is likely from GI blood loss. Patient's labs are consistent with a microcytic anemia, BUN is normal. Again likely dealing with iron deficiency anemia related to significant epistaxis. Recommend continued follow-up with ENT. No plans on endoscopic evaluation. Current Visit: Yes Status: Acute Code(s): D64.9 - ANEMIA, UNSPECIFIED SNOMED Code(s): 752127323 (2) Epistaxis Current Visit: No Status: Acute Code(s): R04.0 - EPISTAXIS SNOMED Code(s): 031597203 (3) Occult blood positive stool Current Visit: Yes Status: Acute Code(s): R19.5 - OTHER FECAL ABNORMALITIES SNOMED Code(s): 63331305 (4) Diabetes mellitus Current Visit: No Status: Chronic Code(s): E11.9 - TYPE 2 DIABETES MELLITUS WITHOUT COMPLICATIONS SNOMED Code(s): 08696871 (5) Morbid obesity with BMI of 45.0-49.9, adult Current Visit: No Status: Chronic Code(s): E66.01 - MORBID (SEVERE) OBESITY DUE TO EXCESS CALORIES; Z68.42 - BODY MASS INDEX [BMI] 45.0-49.9, ADULT SNOMED Code(s): 017514331 Plan: 1. Continue symptomatic and supportive care 2. Patient may have consistent carbohydrate diet 3. Continue Protonix 40 mg daily 5. No plans on endoscopic evaluation. Anemia likely related to recent significant nosebleeds. Occult stool likely related to residual blood loss from epistaxis. 6. Continue with follow-up and recommendations from ENT. Thank you for this consultation, the patient is cleared for discharge from gastroenterology. Dr. Casey Diaz I agree with the dictator's note, documented as a scribe by Luly Waddell.
[2022-01-25 11:14] LABS: Glucose,Whole Blood 160 mg/dL (70-110)
--- NOTE | 2022-01-25 18:49 | P.DS ---
Providers Date of admission: 01/23/22 20:28 Expected date of discharge: 01/25/22 Attending physician: Edu Schumacher Consults: 01/23/22 20:28 Consult Physician Urgent Consulting Provider: Chiara Diaz Consult Reason/Comments: GI bleed Do you want consulting provider notified?: Yes Primary care physician: [facility] Course: Chief Complaint: Low hemoglobin This is a pleasant 56-year-old patient, follows with Dr. Haynes. Chronic stable medical conditions include COPD, diabetes, GERD, hypertension, hyperlipidemia, obstructive sleep apnea, hypothyroid. Patient had left below- knee amputation in 2019 and right below-knee amputation in August of this year. Her surgeon is from [place]. He has a wound on the left stump. And his does home dressing. Patient's had nose bleeding on his life. 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 Subsequently started having more bleeding. In the past he's had rhinoplasty and at follow-up and was to [place]. About a month ago he had another bleeding when he was at [facility] had to be cauterized and nasal packing was done. Mini-Mental me of the 3 episodes. Last week again he had multiple episodes of epistaxis. He did see Dr. Sandoval from ENT at this point wanted to hold off doing anything. In the meantime patient's hemoglobin dropped yesterday. ER hemoglobin was 7.2. Patient last epistaxis was on Saturday about 5 days ago. But patient yesterday also notices dock stools. Hence concerned about GI bleed and was admitted. GI consulted. Denies any abdominal pain. Does take baby aspirin. January 25: The patient doing well. Discussed with the patient. He'll follow-up in Dr. Sandoval outpatient. Cleared by GI. Questions answered. Past medical history to include: COPD, diabetes, GERD, hypertension, hyperlipidemia, osteoarthritis, obstructive sleep apnea, hypothyroid, bilateral Charcot joints, history of being on the ventilator and tracheostomy to and PEG tube. In 2018. Restless leg syndrome. Left below-knee amputation wound. Social history: . Started smoking at age of 12 stopped in 1984. Less than a pack a day. Alcohol rarely. Family history: CAD, diabetes, kidney disease Physical examination: VITAL SIGNS: 98.6, 76, 15, 130/86, 97% room air GENERAL: BMI 48. Point, sitting at edge of bed awake. EYES: Pupils equal. Conjunctiva normal. HEENT: External appearance of nose and ears normal, oral cavity grossly normal. Area of scarring on the medial wall of the left nostril.. NECK: JVD not raised; masses not palpable. HEART: First and second heart sounds are normal; no edema. LUNGS: Respiratory rate normal; clear to auscultation. ABDOMEN: Soft, nontender, liver spleen not palpable, no masses palpable. PSYCH: Alert and oriented x3; mood and affect normal. MUSCULOSKELETAL:No Clubbing/cyanosis;muscles-grossly intact. Bilateral below- knee amputation. Left stump wound with a dressing in place INVESTIGATIONS, reviewed in the clinical context: January 25: Hemoglobin 7.6 White count 8.9 and he will and 7.2 platelets 360 Admission labs: White count 12.7.2 platelets 377 potassium 4.2 creatinine 0.87 Stool occult blood positive Assessment and plan: -Positive occult stool blood felt to be from epistaxis. No further workup per GI. -Bilateral below-knee amputation. -Left below knee amputation stump wound. Continue local care as at home. -Diabetes mellitus type 2, chronically on insulin Resume reduced dose of insulin. Sliding scale. -COPD due to previous smoker Continue inhalers -Depression and anxiety Lexapro -Hypothyroid Synthroid -Essential hypertension Cozaar, Lopressor -Hyperlipidemia Lovastatin -GERD Omeprazole -Peripheral neuropathy Code -Restless leg syndrome Requip -Recurrent epistaxis with prior intervention including rhinoplasty. Patient to continue using nasal mist. Told not to blow his nose. -Acute blood loss anemia with hemoglobin stable at 7.2. Blood pressure is good. No indication for blood transfusion. Disposition: Home Plan - Discharge Summary Discharge Rx Participant: No New Discharge Prescriptions: Continue Lovastatin 40 mg PO HS Metoprolol Tartrate 25 mg PO BID rOPINIRole HCL [Requip] 1 mg PO TID Escitalopram [Lexapro] 10 mg PO HS Empagliflozin [Jardiance] 10 mg PO DAILY Albuterol Nebulized [Ventolin Nebulized] 2.5 mg INHALATION RT-Q4H PRN PRN Reason: Shortness Of Breath Losartan [Cozaar] 50 mg PO DAILY HYDROcodone/APAP 7.5-325MG [[place] 7.5-325] 1 tab PO QID Albuterol Sulfate [Proair Hfa] 1 - 2 puff INHALATION RT-Q6H PRN PRN Reason: Shortness Of Breath Omeprazole 40 mg PO DAILY Levothyroxine Sodium [Synthroid] 175 mcg PO DAILY Fluticasone/Umeclidin/Vilanter [Trelegy Ellipta 100-62.5-25] 1 puff INHALATION RT-DAILY Insulin Lispro [humaLOG Kwikpen] 70 unit SQ TID-W/MEALS Pregabalin [Lyrica] 100 mg PO TID Semaglutide [Rybelsus] 7 mg PO DAILY Amoxic-Pot Clav 875-125Mg [Augmentin 875-125] 1 tab PO BID rOPINIRole HCL [Requip] 2 mg PO TID Insulin Lispro [humaLOG Kwikpen] See Protocol SQ TID-W/MEALS PRN PRN Reason: HIGH BLOOD SUGAR Sodium Chloride [Saline Mist] 1 spray EA NOSTRIL Q4H Oxymetazoline 0.05% Nasl [place] [Afrin 0.05% Nasal [place]] 1 spray EA NOSTRIL QID PRN PRN Reason: NOSE BLEEDS Insulin Glargine,Hum.rec.anlog [Toujeo Max Solostar] 100 units SQ BID Iferex 150mg Cap 150 mg PO DAILY Aspirin EC [Ecotrin Low Dose] 81 mg PO DAILY Mupirocin 2% Oint [Bactroban 2% Oint] 1 applic NASAL TID PRN PRN Reason: as directed Discharge Medication List Lovastatin 40 mg PO HS 08/10/14 [History] Metoprolol Tartrate 25 mg PO BID 08/13/14 [History] Empagliflozin [Jardiance] 10 mg PO DAILY 01/29/19 [History] Escitalopram [Lexapro] 10 mg PO HS 01/29/19 [History] rOPINIRole HCL [Requip] 1 mg PO TID 01/29/19 [History] Albuterol Nebulized [Ventolin Nebulized] 2.5 mg INHALATION RT-Q4H PRN 05/16/20 [History] Albuterol Sulfate [Proair Hfa] 1 - 2 puff INHALATION RT-Q6H PRN 05/16/20 [History] Fluticasone/Umeclidin/Vilanter [Trelegy Ellipta 100-62.5-25] 1 puff INHALATION RT-DAILY 05/16/20 [History] HYDROcodone/APAP 7.5-325MG [[place] 7.5-325] 1 tab PO QID 05/16/20 [History] Levothyroxine Sodium [Synthroid] 175 mcg PO DAILY 05/16/20 [History] Losartan [Cozaar] 50 mg PO DAILY 05/16/20 [History] Omeprazole 40 mg PO DAILY 05/16/20 [History] Insulin Lispro [humaLOG Kwikpen] 70 unit SQ TID-W/MEALS 09/04/21 [History] Insulin Lispro [humaLOG Kwikpen] See Protocol SQ TID-W/MEALS PRN 09/04/21 [History] Pregabalin [Lyrica] 100 mg PO TID 09/04/21 [History] Semaglutide [Rybelsus] 7 mg PO DAILY 09/04/21 [History] Amoxic-Pot Clav 875-125Mg [Augmentin 875-125] 1 tab PO BID 01/23/22 [History] Aspirin EC [Ecotrin Low Dose] 81 mg PO DAILY 01/23/22 [History] Iferex 150mg Cap 150 mg PO DAILY 01/23/22 [History] Insulin Glargine,Hum.rec.anlog [Toujeo Max Solostar] 100 units SQ BID 01/23/22 [History] Mupirocin 2% Oint [Bactroban 2% Oint] 1 applic NASAL TID PRN 01/23/22 [History] Oxymetazoline 0.05% Nasl [place] [Afrin 0.05% Nasal [place]] 1 spray EA NOSTRIL QID PRN 01/23/22 [History] Sodium Chloride [Saline Mist] 1 spray EA NOSTRIL Q4H 01/23/22 [History] rOPINIRole HCL [Requip] 2 mg PO TID 01/23/22 [History] Follow up Appointment(s)/Referral(s): Rj Haynes DO [Primary Care Provider] - 1-2 days (new office policy. patient will have to call and schedule own appt.) Chiara Diaz MD [STAFF PHYSICIAN] - As Needed Patient Instructions/Handouts: Gastrointestinal Bleeding (DC), Anemia (DC) Discharge Disposition: HOME SELF-CARE
== END 2022-01-25 12:11 | disposition home or self-care (01) | DRG 812 ==
LOC: EC 17:58 → 5NMEDONC 20:28
PROVIDERS: ADMIT Hospitalist; ATTEND Hospitalist
PROC: 30233N1 Transfusion of Nonautologous Red Blood Cells into Peripheral Vein, Percutaneous Approach (ICD-10-PCS; principal; 2022-01-23)
DX: D62 Acute posthemorrhagic anemia (principal); Z68.42 Body mass index [BMI] 45.0-49.9, adult; K92.1 Melena; D50.9 Iron deficiency anemia, unspecified; I10 Essential (primary) hypertension; J44.9 Chronic obstructive pulmonary disease, unspecified; M19.90 Unspecified osteoarthritis, unspecified site; E78.5 Hyperlipidemia, unspecified; E03.9 Hypothyroidism, unspecified; G25.81 Restless legs syndrome; F32.A Depression, unspecified; F41.9 Anxiety disorder, unspecified; R04.0 Epistaxis; G47.33 Obstructive sleep apnea (adult) (pediatric); E11.610 Type 2 diabetes mellitus with diabetic neuropathic arthropathy; K21.9 Gastro-esophageal reflux disease without esophagitis; E11.42 Type 2 diabetes mellitus with diabetic polyneuropathy; T87.89 Other complications of amputation stump; E66.01 Morbid (severe) obesity due to excess calories; Z89.512 Acquired absence of left leg below knee; Z89.511 Acquired absence of right leg below knee; Z79.899 Other long term (current) drug therapy; Z79.84 Long term (current) use of oral hypoglycemic drugs; Z79.1 Long term (current) use of non-steroidal anti-inflammatories (NSAID); Z79.51 Long term (current) use of inhaled steroids; Z79.891 Long term (current) use of opiate analgesic; Z79.4 Long term (current) use of insulin; Z88.8 Allergy status to other drugs, medicaments and biological substances; Z88.2 Allergy status to sulfonamides; Z87.01 Personal history of pneumonia (recurrent); Z87.39 Personal history of other diseases of the musculoskeletal system and connective tissue; Z86.14 Personal history of Methicillin resistant Staphylococcus aureus infection; Z90.49 Acquired absence of other specified parts of digestive tract; Z90.89 Acquired absence of other organs; Z98.890 Other specified postprocedural states; Z98.52 Vasectomy status; Z87.891 Personal history of nicotine dependence; Z87.11 Personal history of peptic ulcer disease; Z86.010 Personal history of colon polyps; Z79.890 Hormone replacement therapy; Z79.82 Long term (current) use of aspirin; Z82.49 Family history of ischemic heart disease and other diseases of the circulatory system; Z83.3 Family history of diabetes mellitus; Z82.5 Family history of asthma and other chronic lower respiratory diseases
CPT/HCPCS: 36415; 80048; 80053; 82272; 85025; 85027; 85610; 85730; 86850; 86900; 86901; 96360; 96361; 99284

== ENCOUNTER → 2022-02-05 | Outpatient (CLI) | payer MEDICARE, BC ==
--- NOTE | 2022-02-05 20:42 | CT ---
EXAMINATION TYPE: CT sinus wo con CT DLP: 630.30 mGycm, Automated exposure control for dose reduction was used. DATE OF EXAM: 02/05/2022 6:55 PM COMPARISON: None. CLINICAL INDICATION:Male, 56 years old with history of J32.9 chronic sinusitis, epistaxis R04.0; , ch ronic sinusitis and nose bleeds CONTRAST: None. TECHNIQUE: Multiple thin axial images were obtained through the paranasal sinuses without the use of IV contrast. Additional coronal and sagittal reformatted images were submitted for evaluation. FINDINGS: Frontal sinuses: Normally developed and aerated with mild mucosal thickening. Frontal Recess: Clear Modified Allen-Bernice Score: Right 0 = 0% Opacified, Left 1 = 1-25% Opacified Maxillary Sinuses: Normally developed and aerated. Modified [place]-August Score: Right 2 = 26-50% Opacified, Left 1 = 1-25% Opacified Maxillary Infundibula(OMC: Mild mucosal thickening bilaterally., No Silverio cells identified. Modified Allen-August Score: Right 1 = Partially obstructed, Left 1 = Partially obstructed Ethmoid sinuses: Normally developed and aerated. Ethmoidal notch: Unprotected right and partially pro tected left anterior ethmoidal arteries. Modified Allen-August Score: Anterior Right 1 = 1-25% Opacified, Left 1 = 1-25% Opacified Posterior Right 1 = 1-25% Opacified, Left 1 = 1-25% Opacified Sphenoid sinuses: Normally developed and aerated. There is sellar sphenoid sinus pneumatization witho ut evidence of dehiscence. No dehiscence of carotid canal. No evidence of optic nerve dehiscence wit hin the sphenoid sinus. No evidence of Onodi cells. There Sphenoethmoidal recesses: Patent right and obstructed on the left. Modified [place]-August Score: Right 0 = 0% Opacified, Left 1 = 1-25% Opacified. Nasal septum: Within normal limits.. Nasal Turbinates: Within normal limits. Mastoid air cells & middle ears: There is evidence of prior mastoiditis with left greater than right suggested bony destruction of the air cells. Modified Soft tissues & Brain: Partially seen without gross abnormality. Globes are intact. Other: Cribriform plate demonstrates symmetric Keros classification type 2 cribriform plate. No evidence of bony dehiscence of skull base. Lamina papyracea is intact without evidence of remote orbital fracture or orbital prolapse into the e thmoid sinus. IMPRESSION: 1. Mild to moderate paranasal sinus disease. 2. The ostiomeatal units are partially obstructed, the frontonasal recesses are patent, and lastly th e sphenoethmoidal recesses are obstructed on the right and patent on the left. 3. Opacification burden of on the Modified [place]-August scoring system.
== END | disposition home or self-care (01) ==
LOC: RADCTMAIN 18:35
PROVIDERS: ATTEND Otolaryngology
DX: J32.9 Chronic sinusitis, unspecified (principal); J34.89 Other specified disorders of nose and nasal sinuses; R04.0 Epistaxis
CPT/HCPCS: 70486

== ENCOUNTER → 2022-03-02 | Outpatient (CLI) | payer MEDICARE, BC ==
[2022-03-02 13:43] LABS: African American GFR (CKD) >90 (>60 ml/min/1.73 sqM); Blood Urea Nitrogen 23 mg/dL (9-20); Non-African American GFR(CKD) >90 (>60 ml/min/1.73 sqM)
--- NOTE | 2022-03-02 17:08 | CT ---
EXAMINATION TYPE: CT angio chest DATE OF EXAM: 03/02/2022 COMPARISON: Report from 02/06/2021. Images not available for review. HISTORY: 56-year-old male I 7 1.2, F/U thoracic aortic aneurysm TECHNIQUE: Contiguous axial scanning of the chest performed without and with IV Contrast, patient inj ected with 100 mL of Isovue 370. Coronal/sagittal MIP reconstructions performed. CT DLP: 1907.40 mGycm Automated exposure control for dose reduction was used. FINDINGS: Tiny retained BB within the left paramedian presternal soft tissues. Heart normal size without perica rdial effusion. Scattered three-vessel coronary artery calcifications are present. There is ectasia of the aortic root at 3.7 cm. Borderline ectasia of the ascending aorta at 3.6 cm. Conventional arch vessel branching anatomy. Mildly enlarged caliber to the main right and left pulmonary arteries measuring up to 2.8 cm may repr esent underlying pulmonary arterial hypertension. Prominent but nonenlarged 9 mm precarinal lymph node. Additional scattered nonenlarged lymph nodes ar e present. Moderate bilateral gynecomastia. Strandy atelectasis or scarring in the lower lungs. No consolidation or pleural effusion. Visualized upper abdomen shows cholecystectomy clips, splenomegaly at 17.0 cm, and are hilar splenule . Bones: Nonspecific sclerotic focus left side of the mid sternal body probably bone island. Correlate with PSA values. IMPRESSION: 1. ECTATIC AORTIC ROOT AT 3.7 CM AND BORDERLINE ECTASIA OF THE ASCENDING AORTA at 3.6 cm. Previous me asurements were up to 4.0 cm. No nisha aneurysm seen on the current study. 2. Possible underlying pulmonary arterial hypertension. Clinically correlate. 3. Splenomegaly at 17.0 cm. Clinically correlate. 4. Nonspecific sclerotic focus left side of the mid sternal body, probably a bone island. Correlate w ith PSA values.
== END | disposition home or self-care (01) ==
LOC: RADCTMAIN 13:06
PROVIDERS: ATTEND Family Medicine
DX: I71.2 Thoracic aortic aneurysm, without rupture (principal)
CPT/HCPCS: 82565; 84520; 71275; 36415; Q9967

== ENCOUNTER → 2022-11-27 | Outpatient (CLI) | payer MEDICARE ==
[2022-11-27 15:59] LABS: ALT 40 U/L; AST 31 U/L; Albumin 4.3 d/dL; Albumin/Globulin Ratio 1.39 Ratio; Alkaline Phosphatase 204 U/L; Calcium 9.6 mg/dL; Carbon Dioxide 26.8 mmol/L; Chloride 99 mmol/L; Chol/HDL Ratio 5.53 Ratio; Globulin 3.1 d/dL; Glucose 147 mg/dL; LDL Cholesterol,Calculated 94.5 mg/dL; Potassium 4.8 mmol/L; Sodium 141 mmol/L; Total Bilirubin 0.4 mg/dL; Total Protein 7.4 d/dL
[2022-11-27 18:25] LABS: Urine Creatinine 84.5 mg/dL
== END | disposition home or self-care (01) ==
LOC: LABWHC1 10:06
PROVIDERS: ATTEND Internal Medicine Endocrinology, Diabetes & Metabolism
DX: E11.65 Type 2 diabetes mellitus with hyperglycemia (principal)
CPT/HCPCS: 36415; 80053; 80061; 82043; 82570; 83036; 84443

== ENCOUNTER 2023-04-09 07:34 | Day surgery (SDC) | payer MEDICARE ==
[~2023-04-09 07:34] MED LIST changes: -PROPOFOL 10 MG/ML 20 ML VIAL IV ONE
[2023-04-09 08:14] LABS: Glucose,Whole Blood 140 mg/dL (70-110)
[2023-04-09] MEDS ORDERED: LACTATED RINGERS 1,000 ML IV ONE (08:14)
[2023-04-09 08:22] VITALS: TEMP 98
[2023-04-09] MEDS ORDERED: LIDOCAINE 2% (PF) 20 MG/ML 5 ML VIAL ONE (08:37)
[2023-04-09] MEDS ORDERED: PROPOFOL 10 MG/ML 20 ML VIAL IV ONE (08:37)
--- NOTE | 2023-04-09 09:07 | P.PCN ---
Date of Procedure: 04/09/23 Procedure(s) Performed: BRIEF HISTORY: Patient is a 58-year-old pleasant white male scheduled for an elective colonoscopy as a part of evaluation of prior history of colon polyps. PROCEDURE PERFORMED: Colonoscopy with snare polypectomy PREOPERATIVE DIAGNOSIS: History of colon polyps. IV sedation per Anesthesia. PROCEDURE: After informed consent was obtained, the patient, was brought into the endoscopy unit. IV sedation was administered by Anesthesia under continuous monitoring. Digital rectal examination was normal. Initially the Olympus CF-160 flexible video colonoscope was then inserted in the rectum, gradually advanced into the hepatic flexure and further advancement was not possible because of extremely redundant examined colon. Abdominal pressure was applied despite which the scope could not be advanced into the cecum.After several attempts at advancing the scope into the cecum and applying abdominal pressure and changing patient position, it was not successful. At this time careful examination was performed. The prep was fair. Careful examination was performed as the scope was gradually being withdrawn. In the hepatic flexure there was a 7 mm polyp that was removed by cold snare polypectomy. Mucosa of the transverse colon, descending colon, sigmoid colon, and rectum appeared normal. Retroflexion was performed in the rectum and no lesions were seen. The patient tolerated the procedure well. IMPRESSION: 7 mm hepatic flexure polyp status post polypectomy Scope advanced upto the hepatic flexure and further advancement of the cecum not possible because of extremely redundant colon. RECOMMENDATIONS: Findings of this examination were discussed with the patient a s well as his family.. He was advised to follow with the biopsy results. If the biopsy with adenoma he can have a repeat colonoscopy in 3 years
[2023-04-09 09:22] VITALS: RESP 20
[2023-04-09 09:26] LABS: Glucose,Whole Blood 143 mg/dL (70-110)
[2023-04-09 09:42] VITALS: BP 139/71; PULSE 73
== END 2023-04-09 09:46 | disposition home or self-care (01) ==
LOC: ORWHC2ENDO 07:34
PROVIDERS: ATTEND Internal Medicine Gastroenterology
DX: Z12.11 Encounter for screening for malignant neoplasm of colon (principal); D12.3 Benign neoplasm of transverse colon; I10 Essential (primary) hypertension; E78.5 Hyperlipidemia, unspecified; J44.9 Chronic obstructive pulmonary disease, unspecified; G47.33 Obstructive sleep apnea (adult) (pediatric); E11.9 Type 2 diabetes mellitus without complications; F41.9 Anxiety disorder, unspecified; E03.9 Hypothyroidism, unspecified; K21.9 Gastro-esophageal reflux disease without esophagitis; Z79.51 Long term (current) use of inhaled steroids; Z79.4 Long term (current) use of insulin; Z79.811 Long term (current) use of aromatase inhibitors; Z79.891 Long term (current) use of opiate analgesic; Z87.09 Personal history of other diseases of the respiratory system; Z83.3 Family history of diabetes mellitus; Z88.1 Allergy status to other antibiotic agents; Z88.2 Allergy status to sulfonamides; Z88.8 Allergy status to other drugs, medicaments and biological substances; Z86.010 Personal history of colon polyps; Z98.890 Other specified postprocedural states
CPT/HCPCS: 88305; 45385; J2704; J2001